=== PATIENT | male | born 1975 | race Caucasian/White ===

== ENCOUNTER 2022-09-26 08:23 | Outpatient (OUT) | payer BC, SELFPAY ==
[2022-09-26 08:41] LABS: Basophils Percent Auto 0.3 % (0.2-2.0); Eosinophils Absolute Auto 0.1 10^3/uL (0.0-0.7); Eosinophils Percent Auto 1.1 % (0.9-7.0); Hematocrit 47.9 % (42.0-54.0); Hemoglobin 16.1 g/dL (14.0-18.0); Immature Granulocytes Abs Auto 0.03 10^3/uL (0.00-0.03); Immature Granulocytes Pct Auto 0.5 % (0.0-0.5); Lymphocytes Absolute Auto 1.5 10^3/uL (1.2-3.8); Lymphocytes Percent Auto 23.6 % (20.5-60.0); Mean Corpuscular HGB Conc 33.6 g/dL (29.9-35.2); Mean Corpuscular Hemoglobin 30.3 pg (25.9-34.0); Mean Corpuscular Volume 90.2 fL (80.0-94.0); Mean Platelet Volume 10.9 fL (9.5-13.5); Monocytes Absolute Auto 0.5 10^3/uL (0.3-0.8); Monocytes Percent Auto 8.6 % (1.7-12.0); Neutrophils Absolute Auto 4.1 10^3/uL (1.4-6.5); Neutrophils Percent Auto 65.9 % (43.0-75.0); Platelet Count 199 10^3/uL (150-450); Red Blood Count 5.31 10^6/uL (4.70-6.10); Red Cell Distribution Width 12.9 % (11.0-15.0); White Blood Count 6.2 10^3/uL (4.0-11.0)
[2022-09-26 09:02] LABS: Estimated Average Glucose 117 mg/dL; Glycohemoglobin A1C 5.7 % (4.5-6.2)
[2022-09-26 09:43] LABS: Alanine Aminotransferase 26 U/L (16-63); Albumin Globulin Ratio 1.2; Albumin Level 3.9 g/dL (3.4-5.0); Alkaline Phosphatase 70 U/L (46-116); Anion Gap 10.9; Aspartate Amino Transferase 18 U/L (15-37); Bilirubin Total 0.6 mg/dL (0.2-1.0); Calcium 8.8 mg/dL (8.5-10.1); Carbon Dioxide 30.3 mmol/L (21.0-32.0); Chloride 104 mmol/L (98-107); Chol HDL Ratio 3.7; Cholesterol 190 mg/dL (<=200); Estimated GFR (African America >60 (>=60); Estimated GFR (Non-African Ame >60 (>=60); Globulin 3.3 g/dL; Glucose 109 mg/dL (74-106); HDL Cholesterol 52 mg/dL (40-60); LDL Cholesterol Calculated 111.6 mg/dL; Potassium 4.2 mmol/L (3.5-5.1); Sodium 141 mmol/L (136-145); Total Protein 7.2 g/dL (6.4-8.2); Triglycerides 132 mg/dL (<=150); VLDL CHOLESTEROL 26.4 mg/dL
[2022-09-26 09:58] LABS: Prostate Specific Antigen Scrn 1.59 ng/mL (<=4.00)
== END 2022-09-26 08:24 | disposition home or self-care (01) ==
LOC: LAB 08:26
PROVIDERS: PCP Internal Medicine; Visit Provider Internal Medicine
DX: Z00.00 Encounter for general adult medical examination without abnormal findings (principal); Z12.5 Encounter for screening for malignant neoplasm of prostate
CPT/HCPCS: 36415; 80053; 80061; 83036; 85025; G0103

== ENCOUNTER 2024-01-03 07:11 | Outpatient (OUT) | payer BC, SELFPAY ==
[2024-01-03 07:50] LABS: Basophils Percent Auto 0.5 % (0.2-2.0); Eosinophils Absolute Auto 0.1 10^3/uL (0.0-0.7); Eosinophils Percent Auto 1.9 % (0.9-7.0); Hematocrit 43.2 % (42.0-54.0); Hemoglobin 13.6 g/dL (14.0-18.0); Immature Granulocytes Abs Auto 0.02 10^3/uL (0.00-0.03); Immature Granulocytes Pct Auto 0.3 % (0.0-0.5); Lymphocytes Absolute Auto 1.7 10^3/uL (1.2-3.8); Lymphocytes Percent Auto 29.4 % (20.5-60.0); Mean Corpuscular HGB Conc 31.5 g/dL (29.9-35.2); Mean Corpuscular Hemoglobin 26.5 pg (25.9-34.0); Mean Platelet Volume 11.4 fL (9.5-13.5); Monocytes Absolute Auto 0.6 10^3/uL (0.3-0.8); Monocytes Percent Auto 10.2 % (1.7-12.0); Neutrophils Absolute Auto 3.4 10^3/uL (1.4-6.5); Neutrophils Percent Auto 57.7 % (43.0-75.0); Platelet Count 281 10^3/uL (150-450); Red Blood Count 5.14 10^6/uL (4.70-6.10); Red Cell Distribution Width 14.6 % (11.0-15.0); White Blood Count 5.9 10^3/uL (4.0-11.0)
[2024-01-03 08:00] LABS: Estimated Average Glucose 114 mg/dL; Glycohemoglobin A1C 5.6 % (4.5-6.2)
[2024-01-03 08:01] LABS: Alanine Aminotransferase 27 U/L (16-63); Albumin Globulin Ratio 1.2; Albumin Level 3.7 g/dL (3.4-5.0); Alkaline Phosphatase 79 U/L (46-116); Anion Gap 14.4; Aspartate Amino Transferase 26 U/L (15-37); BUN Creatinine Ratio 9.7; Bilirubin Total 0.5 mg/dL (0.2-1.0); Calcium 8.9 mg/dL (8.5-10.1); Carbon Dioxide 27.3 mmol/L (21.0-32.0); Chloride 105 mmol/L (98-107); Chol HDL Ratio 4.6; Cholesterol 215 mg/dL (<=200); Estimated GFR (African America >60 (>=60 mL/min/1.73m^2); Estimated GFR (Non-African Ame >60 (>=60 mL/min/1.73m^2); Globulin 3.2 g/dL; Glucose 106 mg/dL (74-106); HDL Cholesterol 47 mg/dL (40-60); Potassium 4.7 mmol/L (3.5-5.1); Sodium 142 mmol/L (136-145); Total Protein 6.9 g/dL (6.4-8.2); Triglycerides 198 mg/dL (<=150); VLDL CHOLESTEROL 39.6 mg/dL
[2024-01-03 08:51] LABS: Prostate Specific Antigen Scrn 1.59 ng/mL (<=4.00)
== END 2024-01-03 07:12 | disposition home or self-care (01) ==
LOC: LAB 07:13
PROVIDERS: PCP Internal Medicine; Visit Provider Internal Medicine
DX: Z00.00 Encounter for general adult medical examination without abnormal findings (principal)
CPT/HCPCS: 36415; 80053; 80061; 83036; 85025; G0103

== ENCOUNTER 2024-11-04 15:10 | Outpatient (OUT) | payer OTHER, SELFPAY ==
--- OUTSIDE RECORDS SUMMARY | 2024-11-04 10:40 | XMS_ITS | Continuity of Care Document ---
Author Organization [facility] Address [address] [place] [address] Phone Care Team Providers Care Marketing Co Op Name Role Phone Luther Nicolas DO Primary Care Provider Jorge David Jr, DO Attending Provider Luther Nicolas DO Attending Provider Care Teams Patient Care Team Team Status: Active Member Role Status Dates Luther Nicolas DO Primary Care Provider Active Visit Care Team Team Status: Inactive Member Role Status Dates Luther Nicolas DO Primary Care Provider Active Start: October 10, 2024 End: October 10, 2024 Jorge David Jr, DO Attending Provider Active S tart: October 10, 2024 End: October 10, 2024 Patient Care Team Team Status: Inactive Member Role Status Dates Luther Nicolas DO Primary Care Provider Active Start: November 04, 2024 End: November 04, 2024 Luther Nicolas DO Attending Provider Active Sta rt: November 04, 2024 End: November 04, 2024 Chief Complaint and Reason for Visit Chief Complaint Admit Date fpg 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 October 10, 2024 8: 00am intermittent chest pain November 04, 2024 1:53pm Reason for Visit Admit Date Chest pain November 04, 2024 1:53pm Dyspnea November 04, 2024 1:53pm Murmur November 04, 2024 1:53pm Allergies, Adverse Reactions, Alerts Allergen Type Severity Reaction Last Updated Verified Status No Known Allergies Allergy Unknown Sept2024 1:55pm Yes Active Social History Smoking Status Status Start Date End Date Date of Observa tion Never smoked tobacco (finding) January 11, 2024 10:28am Observation Status Observation Response Date of Response Legal Sex Male (finding) Sex Assigned At Male [birth year] Family History Relationship Condition Age at Onset Recorded Date/T malu father Malignant neoplasm Unknown High blood cholesterol Unknown mother Hypertension Unknown History of stroke Unknown Migraine Unknown Problems Active Problems Medical Problem Onset Date Status Comments Screening PSA (prostate spec ific antigen) Unknown Active PSA: 1.58 - 12/2022, 1.59 - 12/2023 Left hip impingement syndrome Unknown Active Dyspnea Unknown Active Wellness examination Unknown Active Murmur Unknown Active Benign prostatic hyperplasia with lower urinary tract symptoms Unknown Active GERD (gastroesophageal reflu x disease) Unknown Active Chest pain Unknown Active Asthma Unknown Active Medications Medication Status Dose Units Route Directions Qty Days St art Date Stop Date End Date Instructions Adherence Tamsulosin 0.4 mg capsule Discont inued 0 .ROUTE .COMPLEX September 18, 2023 8:39am 2024 8:11a m TAKE 1 CAPSULE BY MOUTH EVERY DAY FOR 90 DAYS Montelukast 10 mg tablet Discont inued 10 MG PO Daily b er 2023 1:00am [facility] 2023 9:45p m Montelukast 10 mg tablet Active 0 .ROUTE .COMPLEX 2023 9:45pm TAKE 1 TABLET BY MOUTH EVERYDAY AT BEDTIME Complies with drug therapy Tamsulosin 0.4 mg capsule Active 0 .ROUTE .COMPLEX September 16, 2024 8:11am TAKE 1 CAPSULE BY MOUTH EVERY DAY FOR 90 DAYS Complies with drug therapy Tamsulosin 0.4 mg capsule Discont inued 0.4 MG PO Daily September 18, 2023 12:00a m 2023 8:39a m Albuterol Sulfate 90 mcg/actuati on HFA aerosol inhaler Active INHALA TION b er 2023 1:00am Complies with drug therapy Immunizations Immunization Event Date Not Given Reason Dose Number Silicator Lot Number Vaccine Information Statement (VIS) Detail Administration Location COVID-19 mRNA-1273 (Moderna) February 11, 2020 [id number] COVID-19 mRNA-1273 (Moderna) March 11, 2020 [id number] COVID-19 mRNA-1273 (Moderna) December 03, 2020 [id number] Influenza, injectable, MDCK, pf December 12, 2023 [id number] Tetanus, Diphtheria, Pertussis (Tdap) October 10, 2024 [id number] Relevant Diagnostic Tests and/or Laboratory Data Laboratory Results Test Collection Date/Time Result Date/Time Result Interpretation Reference Range Result Comment Performing Site Glucose Level October 10, 2024 10:41am October 10, 2024 4:05pm 93 mg/dL 70-100 [facility] [id number] [address] [id number] Blood Urea Nitrogen October 10, 2024 10:41am October 10, 2024 4:05pm 14 mg/dL 7-25 [facility] [id number] [address] [id number] Creatinin e October 10, 2024 10:41am October 10, 2024 4:05pm 1.05 mg/dL 0.70-1.30 [facility] [id number] [address] [id number] Estimated GFR (CKD-EPI) October 10, 2024 10:41am October 10, 2024 4:05pm > 60.0 mL/Min [facility] [id number] [address] [id number] Sodium Level October 10, 2024 10:41am October 10, 2024 4:05pm 137 mmol/L 136-145 [facility] [id number] [address] [id number] Potassium Level October 10, 2024 10:41am October 10, 2024 4:05pm 4.6 mmol/L 3.5-5.1 [facility] [id number] [address] [id number] Chloride Level October 10, 2024 10:41am October 10, 2024 4:05pm 105 mmol/L 98-107 [facility] [id number] [address] [id number] Carbon Dioxide Level October 10, 2024 10:41am October 10, 2024 4:05pm 25.7 mmol/L 21.0-31.0 [facility] [id number] [address] [id number] Anion Gap October 10, 2024 10:41am October 10, 2024 4:05pm 10.9 mEq/L 6.0-15.0 [facility] [id number] [address] [facility] [address] Calcium Level October 10, 2024 10:41am October 10, 2024 4:05pm 9.4 mg/dL 8.6-10.3 [facility] [id number] [address] [facility] [address] Cholester ol Level October 10, 2024 10:41am October 10, 2024 4:05pm 205 mg/dL Above high normal 140-200 Chol less than 200 mg/dl low riskChol 201-239 mg/dl borderline riskChol 240 mg/dl and greater high risk [facility] [id number] [address] [facility] [address] HDL Cholester ol October 10, 2024 10:41am October 10, 2024 4:05pm 46 mg/dL 23-92 HDL CHOL ATP-III CLASSIFICATI ON Cardiovascul ar RiskHDL > or equal to 60 mg/dL LOWHDL < 40 mg/dL HIGH [facility] [id number] [address] [facility] [address] Triglycer ides Reflex October 10, 2024 10:41am October 10, 2024 4:05pm 164 mg/dL Above high normal 0-149 TRIG ATP III CLASSIFICATI ONTRIG less than 150 mg/dL NormalTRIG 150-199 mg/dL Borderline highTRIG 200-500 mg/dL High TRIG greater than 500 mg/dL Very highStandard traceable to the Center for Disease Conrtrol and Prevention (CDC) test method. [facility] [id number] [address] [facility] [address] LDL Cholester ol, Calculate d October 10, 2024 10:41am October 10, 2024 4:05pm 126 mg/dL Above high normal 0-100 LDL ATP III CLASSIFICATI ONLDL less than 100 mg/dL OptimalLDL 100-129 mg/dL Near or above optimalLDL 130-159 mg/dL Borderline highLDL 160-189 mg/dL HighLDL greater than 189 mg/dL Very high [facility] [id number] [address] [facility] [address] VLDL Cholester ol October 10, 2024 10:41am October 10, 2024 4:05pm 32 mg/dL [facility] [id number] [address] [facility] [address] Cholester ol/HDL Ratio October 10, 2024 10:41am October 10, 2024 4:05pm 4.5 <5.0 [facility] [id number] [address] [facility] [address] Pharmacy Creatinin e Clearance (Chem October 10, 2024 10:41am October 10, 2024 4:05pm N/A [facility] [id number] [address] [facility] [address] Vital Signs Vital Reading Result Reference Range Collection Date/Time Height 68 [in_i] November 04, 2024 2:00pm Weight 89.01 kg November 04, 2024 2:00pm Heart Rate 108 /min 60-100 November 04, 2024 2:00pm Respiratory rate 12 /min -October 142024 2:00pm BP Systolic 157 mm[Hg] 100-140 November 04, 2024 2:00pm BP Diastolic 95 mm[Hg] 60-100 November 04, 2024 2:00pm BMI (Body Mass Index) 29.8 kg/m2 2024 2:00pm Advance Directives Advance Directive Response Recorded Date/ Time Advance Directives No December 11:21am Insurance Providers Guarantor Henrik Simmons Address [address] [facility] [address] Contact Info. Home Phone: Payer Policy Id Subscriber's Name Subscriber Id Effectiv e Date Expiration Date O [id number] Henrik Simmons [id number] Vini RENEE/BS [id number] Henrik Simmons [id number] Encounters Encounter Location(s) Arrival/Admit Date Discharge/Depart Date Provider(s) Departed Referred -[facility] October 10, 2024 8:00am October 10, 2024 8:01am Jorge David DO Departed Physician/Prov ider Office Visit -[facility] November 04, 2024 1:53pm November 04, 2024 2:39pm Luther Nicolas DO Recent Diagnosis Onset Date Admit Date Chest pain Unknown November 04, 2024 1:53pm Dyspnea Unknown November 04, 2024 1:53pm Murmur Unknown November 04, 2024 1:53pm Assessments Diagnosis Onset Date Resolution Status Admit Date Chest pain acute October 1:53pm Dyspnea acute October 1:53pm Murmur acute October 1:53pm Plan of Treatment Future Tests Future scheduled test information is unavailable Pending Tests Test Name Ordered Date Scheduled Date Comprehensive Metabolic Panel November 04 2:36pm XR chest 2V* November 04, 2024 2:30pm D-Dimer High Sensitivity November 04, 2024 2: 36pm [facility] echo transthoracic November 04, 2024 2:31 pm Future Visits Future appointment information is unavailable Referrals to Other Providers Referral information is unavailable Future Procedures Procedure Name Ordered Date Scheduled Date Complete Blood Count Auto Diff November 04 025 2:36pm Troponin I High Sensitivity November 04, 2024 2:36pm PSA Screen (Yearly Only) November 04, 2024 2: 36pm Thyroid Stimulating Hormone November 04, 2024 2:36pm Future Medications Future medication information is unavailable Patient Instructions Patient instructions are unavailable
--- OUTSIDE RECORDS SUMMARY | 2024-11-04 15:12 | XMS_ITS | Encounter Summary ---
Author Organization [facility] Address [facility] [place] [address] Care Team Providers Care Coke Crusher Operator Name Role Phone Unavailable Primary Care Provider Unavailabl e Source Comments In the event this information is protected by the Federal Confidentiality of Alcohol and Drug AbusePatient Records regulations: The Federal rules restrict any use of the information to criminally investigate or prosecute any alcohol or drug abuse patient.[facility] Encounter Details Date Type Department Care Team (Late st Contact Info) Description 08/19/2024 [place] [address] Provider, [facility]cf Sign up to manage your digestive symptoms in between visits, covered by insurance Social History Tobacco Use Types Packs/Day Years Used Date Smoking Tobacco: Never Smokeless Tobacco: Never Area Deprivation Index Answer Date Donta rded National Score (1-100), lower number is lower ri sk 75 07/10/2023 State Score (1-10), lower number is lower risk 6 07/10/2023 Data from: https://www.neighborhoodatlas.medicine.[facility].edu/. Last address used for calculation [address] 07/10/[birth year]23 Sex and Gender Information Value Date Recorded Sex Assigned at Not on file Legal Sex Male 4:00 PM EDT Gender Identity Not on file Sexual Orientation Not on file documented as of this encounter Plan of Treatment Not on file documented as of this encounter Visit Diagnoses Not on filedocumented in this encounter
--- OUTSIDE RECORDS SUMMARY | 2024-11-04 15:12 | XMS_ITS | Encounter Summary ---
Author Organization [facility] Address [id number] [address] [place] [address] Care Team Providers Care Sales Activity Manager Name Role Phone Luther Nicolas DO Primary Care Provider [phone] Reason for Visit * Reason Comments Med Change Request Encounter Details Date Type Department Care Team (Late st Contact Info) Description 06/12/2024 Refill [facility] [address] [place] [id number] Toñito Shi MD [address] [place] [phone] Social History Tobacco Use Types Packs/Day Years Used Date Smoking Tobacco: Never Passive Smoke Exposure: Never Smokeless Tobacco: Never Alcohol Use Standard Drinks/Week Comments Yes 1 (1 standard drink = 0.6 oz pur e alcohol) Childcare Answer Date Recorded Childcare Unknown 07/22/2018 Employment Answer Date Recorded Employment Unknown 07/22/2018 Hunger Screening Answer Date Recorded Within the past 12 months we worried whether our food would run out before we got money to buy more. Never True 06/03/2024 Within the past 12 months th e food we bought just didn't last and we didn't have money to get more. Never True 06/03/2024 Sex and Gender Information Value Date Recorded Sex Assigned at Not on file Legal Sex Male 3:03 PM EDT Gender Identity Not on file Sexual Orientation Not on file documented as of this encounter Miscellaneous Notes * Telephone Encounter - Toñito Shi MD - 06/12/2024 10:33 AM EDT Refill not needed documented in this encounter Plan of Treatment Not on file documented as of this encounter Visit Diagnoses Not on filedocumented in this encounter Care Teams Sales Activity Manager Relationship Specialty Start Date End Date Luther Nicolas DO [address] [place] [address] PCP - General Internal Medicine 10/16/23 documented as of this encounter
--- OUTSIDE RECORDS SUMMARY | 2024-11-04 15:12 | XMS_ITS | Clinical Summary ---
Author Organization [facility] Address [id number] [address] [place] [address] Care Team Providers Care Fourth Hand Name Role Phone FidencioLuther Primary Care Provider [phone] Allergies No known active allergies Medications tamsulosin (FLOMAX) 0.4 mg capsuleIndicati ons:benign prostatic hyperplasia with lower urinary tract sx Take 1 capsule (0.4 mg total) by mouth nightly Indications: enlarged prostate with urination problem. Active montelukast (SINGULAIR) 10 mg tabletIndicatio ns:seasonal allergic rhinitis Take 1 tablet (10 mg total) by mouth nightly Indications: seasonal runny nose. Active cetirizine (ZyrTEC) 10 mg tabletIndicatio ns:allergic rhinitis Take by mouth once daily at bedtime Indications: inflammation of the nose due to an allergy. Active indomethacin SR (INDOCIN SR) 75 mg CR capsule Take 1 capsule (75 mg total) by mouth in the morning. With food. 4 capsule 5 Active pantoprazole (PROTONIX) 40 mg EC tablet Take 1 tablet (40 mg total) by mouth in the morning. 10 tablet 5 Active ondansetron (ZOFRAN) 4 mg tablet Take 1 tablet (4 mg total) by mouth every 8 (eight) hours as needed for nausea or vomiting. 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 03/26/2024 Femoral acetabular impingement 12/18/2023 Encounters Date Type Department Care Team Description 08/25/2024 12:55 PM EDT Office Visit [facility] [address] [place] [address] Toñito Shi MD Femoroacetabular impingement of left hip (Primary Dx) 08/24/2024 Travel from Last 3 Months Family History Medical History Relation Name Comments Prostate cancer Father Jarocho Anesthesia problems Neg Hx Relation Name Status Comments Father Jarocho Social History Tobacco Use Types Packs/Day Years Used Date Smoking Tobacco: Never Passive Smoke Exposure: Never Smokeless Tobacco: Never Tobacco Cessation:Counseling Given: Not Answered Alcohol Use Standard Drinks/Week Comments Yes 1 (1 standard drink = 0.6 oz pur e alcohol) Childcare Answer Date Recorded Childcare Unknown 07/22/2018 Employment Answer Date Recorded Employment Unknown 07/22/2018 Hunger Screening Answer Date Recorded Within the past 12 months we worried whether our food would run out before we got money to buy more. Never True 08/25/2024 Within the past 12 months th e food we bought just didn't last and we didn't have money to get more. Never True 08/25/2024 Sex and Gender Information Value Date Recorded Sex Assigned at Not on file Legal Sex Male 3:03 PM EDT Gender Identity Not on file Sexual Orientation Not on file Last Filed Vital Signs Vital Sign Reading Time Taken Comments Blood Pressure 132/85 05/21/2024 3:35 PM EDT Pulse 85 05/21/2024 3:35 PM EDT Temperature 36.1 C (97 F) 05/21/2024 1:50 PM EDT Respiratory Rate 18 05/21/2024 3:35 PM EDT Oxygen Saturation 97% 05/21/2024 3:35 PM EDT Inhaled Oxygen Concentration - - Weight 87.1 kg (192 lb) 08/25/2024 12:52 PM EDT Height 172.7 cm (5' 8 ) 08/25/2024 12:52 PM EDT Body Mass Index 29.19 08/25/2024 12:52 PM EDT Plan of Treatment Health Maintenance Due Date Last Done Comments Depression Screening 1988 Adult BMI Follow Up Plan 1994 DTaP,Tdap and Td Vaccines (1 - Tdap) 12/09/1995 COVID-19 Vaccine (4 - 2025-2 6 season) 2024 12/03/2020, 03/11/2020, 02/11/2020 Influenza Vaccine 10/13/2024 12/12/2023 Tobacco Screening 07/01/2025 07/01/2024 Adult BMI Screening 08/25/2025 08/25/2024 Medical Devices Not on file Insurance AN[employer]ELY[employer] Care Teams Fourth Hand Relationship Specialty Start Date End Date Luther Nicolas DO [facility] [place] [address] PCP - General Internal Medicine 10/16/23
--- OUTSIDE RECORDS SUMMARY | 2024-11-04 15:12 | XMS_ITS | Clinical Summary ---
Author Organization [facility] Address [address] [place] [address] Care Team Providers Care Processor Helper Name Role Phone Unavailable Primary Care Provider Unavailabl e Allergies No known active allergies Medications montelukast (SINGULAIR) 10 mg tablet Take by mouth every 24 hours. 10/08/2021 Active tamsulosin (FLOMAX) 0.4 mg 09/22/2022 Act joshua cetirizine (ZYRTEC) 10 mg tablet Active Active Problems No known active problems Encounters Date Type Department Care Team Description 08/19/2024 [place] [address] Provider, [facility]cf Sign up to manage your digestive symptoms in between visits, covered by insurance from Last 3 Months Social History Tobacco Use Types Packs/Day Years Used Date Smoking Tobacco: Never Smokeless Tobacco: Never Tobacco Cessation:Counseling Given: Not Answered Area Deprivation Index Answer Date Donta rded National Score (1-100), lower number is lower ri sk 75 07/10/2023 State Score (1-10), lower number is lower risk 6 07/10/2023 Data from: https://www.neighborhoodatlas.medicine.[facility].edu/. Last address used for calculation [address] 07/10/2023 Sex and Gender Information Value Date Recorded Sex Assigned at Not on file Legal Sex Male 4:00 PM EDT Gender Identity Not on file Sexual Orientation Not on file Last Filed Vital Signs Vital Sign Reading Time Taken Comments Blood Pressure 140/85 09/10/2023 10:31 AM EDT Pulse 75 09/10/2023 10:31 AM EDT Temperature 36.8 C (98.3 F) 09/10/2023 10:31 AM EDT Respiratory Rate - - Oxygen Saturation - - Inhaled Oxygen Concentration - - Weight 85.3 kg (188 lb) 09/10/2023 10:31 AM EDT Height 172.7 cm (5' 8 ) 09/10/2023 10:31 AM EDT Body Mass Index 28.59 09/10/2023 10:31 AM EDT Plan of Treatment Health Maintenance Due Date Last Done Comments Anxiety Screening 1994 Depression Screening 1994 HIV Screening 1994 Hepatitis C Screening 1994 DTaP,Tdap,Td Vaccine (1 - Tdap) 12/09/1995 Hepatitis B Vaccine (1 of 3 - 19+ 3-dose series) 12/08 Lipid Screening 12/09/2011 CT Colonography 2021 Cologuard (FIT-DNA) 2021 Colonoscopy 2021 Colorectal Cancer Screening 2021 Diabetes Screening 2021 Fecal Occult Blood 2021 Sigmoidoscopy 2021 Influenza Vaccine (#1) 2024 Insurance
--- OUTSIDE RECORDS SUMMARY | 2024-11-04 15:12 | XMS_ITS | Clinical Summary ---
Author Organization [facility] Address [address] [place] [address] Care Team Providers Care Bag Liner Name Role Phone Luther Nicolas DO Primary Care Provider [phone] Allergies No known active allergies Medications tamsulosin (Flomax) 0.4 MG 24 hr capsule Active Singulair 10 MG tablet Active cetirizine (ZyrTEC ALLERGY) 10 MG tablet Active Active Problems Problem Noted Date Diagnosed Date Articular cartilage disorder of left hip 025 Left hip pain 09/27/2023 Femoral acetabular impingement 09/27/2023 Encounter for screening for malignant neoplasm o f colon 11/22/2022 Encounters Date Type Department Care Team Description 09/04/2024 5:00 PM EDT Treatment [facility] [address] [place] [address] Alejandra Lee PTA Left hip pain (Primary Dx); Femoroacetabular impingement of left hip; Articular cartilage disorder of left hip 09/04/2024 Travel 09/02/2024 5:00 PM EDT Treatment [facility] [address] [place] [address] Lucy Fay PTA Left hip pain (Primary Dx); Femoroacetabular impingement of left hip; Articular cartilage disorder of left hip 09/02/2024 Travel 08/29/2024 1:30 PM EDT Treatment [facility] [address] [place] [address] Lee, Alejandra, [employer] Left hip pain (Primary Dx); Femoroacetabular impingement of left hip; Articular cartilage disorder of left hip 08/29/2024 Travel from Last 3 Months Immunizations Immunization Administration Dates Next Due Influenza, seasonal, injectable, preservative fr ee 12/12/2023 Family History Medical History Relation Name Comments Prostate cancer Father Breast cancer Neg Hx Colon cancer Neg Hx Ovarian cancer Neg Hx Relation Name Status Comments Father Alive Mother Alive Social History Tobacco Use Types Packs/Day Years Used Date Smoking Tobacco: Never Smokeless Tobacco: Never Alcohol Use Standard Drinks/Week Comments Yes 1 (1 standard drink = 0.6 oz pur e alcohol) Sex and Gender Information Value Date Recorded Sex Assigned at Male 11/21/2022 10:54 PM EDT Legal Sex Male 2:44 PM EDT Gender Identity Male 11/21/2022 10:54 PM EDT Sexual Orientation Straight 11/21/2022 10 :54 PM EDT Last Filed Vital Signs Vital Sign Reading Time Taken Comments Blood Pressure 138/86 11/22/2022 3:27 PM EDT Pulse - - Temperature - - Respiratory Rate - - Oxygen Saturation - - Inhaled Oxygen Concentration - - Weight 81.6 kg (180 lb) 11/22/2022 3:27 PM EDT Height 172.7 cm (5' 8 ) 11/22/2022 3:27 PM EDT Body Mass Index 27.37 11/22/2022 3:27 PM EDT Plan of Treatment Health Maintenance Due Date Last Done Comments CT Colonography 1976 FIT-DNA 1976 FIT 1975 FOBT 1975 Sigmoidoscopy 1975 Influenza Vaccine (#1) 2024 12/12/2023 Colonoscopy 12/18/2032 12/18/2022, 12/18/2022, 11/12 Colorectal Cancer Screening 12/18/[address] [place] [address] Care Teams Bag Liner Relationship Specialty Start Date End Date Luther Nicolas DO PCP - General 11/21/22
--- NOTE | 2024-11-04 15:13 | XR_ITS ---
[address] [address] Patient Name: SAMSON MENJIVAR MRN: [id number] date: 1975 Sex: M Assigned Patient Location: LAB Current Patient Location: LAB Accession/Order Number: [id number] Exam Date: 11/04/2024 15:20 Report Date: 11/04/2024 18:16 At the request of: MILANA MORRIS DO Procedure: XR chest 2V PA AND LATERAL CHEST: CLINICAL HISTORY: Chest Pain, Dyspnea COMPARISON: 08/15/2020 FINDINGS: Unremarkable cardiomediastinal silhouette. Lungs clear. No effusion or pneumothorax XR/XR chest 2V IMPRESSION: NO ACUTE CARDIOPULMONARY ABNORMALITY. Impression dictated by: Robby Saba M.D. 11/04/2024 6:16 PM Dictation Location: [place] [address] Electronically authenticated by: [id number] Y Date: 11/04/2024 18:16
[2024-11-04 15:16] LABS: Hematocrit 35.9 % (42.0-54.0); Hemoglobin 10.9 g/dL (14.0-18.0); Immature Granulocytes Abs Auto 0.02 10^3/uL (0.00-0.03); Immature Granulocytes Pct Auto 0.4 % (0.0-0.5); Lymphocytes Absolute Auto 1.7 10^3/uL (1.2-3.8); Mean Corpuscular HGB Conc 30.4 g/dL (29.9-35.2); Mean Corpuscular Hemoglobin 22.2 pg (25.9-34.0); Mean Corpuscular Volume 73.3 fL (80.0-94.0); Platelet Count 348 10^3/uL (150-450); Red Blood Count 4.90 10^6/uL (4.70-6.10); White Blood Count 5.7 10^3/uL (4.0-11.0)
--- OUTSIDE RECORDS SUMMARY | 2024-11-04 15:17 | XMS_ITS | CCD ---
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 Name Role Phone ARTURO, DR CORTÉS Admitting Unavailable BALL, DR CORTÉS Attending Unavailable BALL, DR CORTÉS Primary Care Unavailable BALL, DR CORTÉS Consulting Unavailable BALL, DR CORTÉS Primary Care Unavailable BALL, DR CORTÉS Admitting Unavailable BALL, DR CORTÉS Attending Unavailable WEST, DR BRAD Galvan Consulting Unavailable BALL, DR CORTÉS Consulting Unavailable BALL, DR CORTÉS Primary Care Unavailable BALL, DR CORTÉS Admitting Unavailable BALL, DR CORTÉS Attending Unavailable WEST, DR BRAD Galvan Consulting Unavailable BALL, DR CORTÉS Primary Care Unavailable BALL, DR CORTÉS Admitting Unavailable BALL, DR CORTÉS Attending Unavailable BALL, DR CORTÉS Consulting Unavailable BALL, DR CORTÉS Primary Care Unavailable ALEXANDRO, MAYRA Admitting Unavailable ALEXANDRO, MAYRA Attending Unavailable ALEXANDRO, MAYRA Consulting Unavailable Arturo Luther Unavailable Unavailable Primary Care Provider UnavailLUTHER White Attending Unavailable BRAD HANNA Attending Unavailable Luther Nicolas MD Primary Care Provider PIERCE, JEANA K Referring Unavailable LUTHER NICOLAS Primary Care Unavailable PIERCE, JEANA K Referring Unavailable LUTHER NICOLAS Primary Care Unavailable PIERCE, JEANA K Referring Unavailable LUTHER NICOLAS Primary Care Unavailable Luther Nicolas DO Primary Care Provider LUTHER NICOLAS Referring Unavailable LUTHER NICOLAS Primary Care Unavailable PIERCE, JEANA K Admitting Unavailable PIERCE, JEANA K Attending Unavailable PIERCE, JEANA K Referring Unavailable LUTHER NICOLAS Primary Care Unavailable Luther Nicolas MD Primary Care Provider Luther Nicolas DO Primary Care Provider PIERCE, JEANA K Attending Unavailable LUTHER NICOLAS Referring Unavailable LUTHER NICOLAS Primary Care Unavailable PIERCE, JEANA K Referring Unavailable LUTHER NICOLAS Primary Care Unavailable PIERCE, JEANA K Attending Unavailable LUTHER NICOLAS Referring Unavailable BALL, LUTHER E Primary Care Unavailable PIERCE, JEANA K Attending Unavailable ARTURO, LUTHER E Referring Unavailable BALL, LUTHER E Primary Care Unavailable PIERCE, JEANA K Referring Unavailable BALL, LUTHER E Primary Care Unavailable PIERCE, JEANA K Attending Unavailable BALL, LUTHER E Referring Unavailable BALL, LUTHER E Primary Care Unavailable PIERCE, JEANA K Attending Unavailable BALL, LUTHER E Referring Unavailable BALL, LUTHER E Primary Care Unavailable Luther Nicolas DO Primary Care Provider Jorge David DO Attending Provider [phone] Jorge David Jr Attending Unavailable Jorge David Jr Admitting Unavailable Luther Nicolas Primary Care Unavailable Medications Current Medications Medication Drug Class(es) Dates Sig (Normalized) Sig (Original) acetaminophen 500 mg oral tablet (2 sources) acetaminophen (TYLENOL EXTRA STRENGTH) 500 mg tablet Take 1 tablet (500 mg total) by mouth as needed for pain. Active acetaminophen 325 mg / HYDROcodone bitartrate 5 mg oral tablet (1 source) Opioid Agonist Start: 05-21-2024 End: 05-26-2024 HYDROcodone-acetamin ophen (NORCO) 5-325 mg per tablet Indications: Post-operative pain Take 1-2 tablets by mouth every 6 (six) hours as needed for pain for up to 5 days. Max Daily Amount: 8 tablets 40 tablet 05/21/2024 05/26/2024 Active [id number] 200 actuat albuterol 0.09 mg/actuat metered dose inhaler (5 sources) beta2-Adrenergic Agonist Start: 01-02-2024 take 2 puff(s) by in halation every four hours as needed for cough Albuterol Sulfate HFA 108 (90 Base) MCG/ACT 2 puffs Inhalation every 4 hrs as needed for cough or SOB for 30 days PRN Active take 1 puff(s) by in halation every four hours as needed Albuterol Sulfate HFA 108 (90 Base) MCG/ACT 1 puff as needed Inhalation every 4 hrs PRN Active aspirin 81 mg delayed release oral tablet (3 sources) Platelet Aggregation Inhibitor, Nonsteroidal Anti-inflammatory Drug Start: 05-21-2024 End: 06-20-2024 take 1 tablet by mouth in the morning aspirin 81 mg Take 1 tablet (81 mg total) by mouth in the morning and 1 tablet (81 mg total) before bedtime. Do all this for 30 days. To start after aspirin 325 mg complete. 60 tablet 05/21/2024 06/20/2024 Active Start: 05-21-2024 End: 05-25-2024 take 1 tablet by mouth in the morning, then take 1 tablet by mouth at bedtime aspirin 325 mg EC tablet Take 1 tablet (325 mg total) by mouth in the morning and 1 tablet (325 mg total) before bedtime. Do all this for 4 days. Take this while taking indomethacin. 8 tablet 05/21/2024 05/25/2024 Active cetirizine hydrochloride 10 mg oral tablet (20 sources) Histamine-1 Receptor Antagonist cetirizine (ZyrTEC ALLERGY) 10 MG tablet Active indomethacin 75 mg extended release oral capsule (4 sources) Nonsteroidal Anti-inflammatory Drug Start: 05-22-19 25 take 1 capsule by mouth at mealtime indomethacin SR (INDOCIN SR) 75 mg CR capsule Take 1 capsule (75 mg total) by mouth in the morning. With food. 4 capsule 05/21/2024 Active montelukast 10 mg oral tablet (20 sources) Leukotriene Receptor Antagonist Start: 12-17-19 24 take 1 tablet by mouth once daily at bedtime Start: 12-17-2023 End: 12-17-2023 take 1 tablet by mouth once daily Montelukast 10 mg tablet Discontinued 10 MG PO Daily December 17, 2023 1:00am December 17, 2023 9:45pm Start: 10-08-2021 montelukast (S INGULAIR) 10 mg tablet Take by mouth every 24 hours. 0 10/08/2021 Active naproxen 500 mg oral tablet (2 sources) Nonsteroidal Anti-inflammatory Drug Start: 05-21-2024 End: 06-20-2024 take 1 tablet by mouth in the morning, then take 1 tablet by mouth at mealtime naproxen (NAPROSYN) 500 mg tablet Take 1 tablet (500 mg total) by mouth in the morning and 1 tablet (500 mg total) in the evening. Take with meals. Do all this for 30 days. Begin taking after completing indomethacin. 60 tablet 05/21/2024 06/20/2024 Active ondansetron 4 mg oral tablet (4 sources) Serotonin-3 Receptor Antagonist Start: 05-21-2024 take 1 tablet by mouth every eight hours as needed for nausea and vomiting ondansetron (ZOFRAN) 4 mg tablet Take 1 tablet (4 mg total) by mouth every 8 (eight) hours as needed for nausea or vomiting. 20 tablet 05/21/2024 Active pantoprazole 40 mg delayed release oral tablet (4 sources) Proton Pump Inhibitor Start: 05-21-2024 take 1 tablet by mouth in the morning pantoprazole (PROTONIX) 40 mg EC tablet Take 1 tablet (40 mg total) by mouth in the morning. 10 tablet 05/21/2024 Active tamsulosin hydrochloride 0.4 mg oral capsule (20 sources) alpha-Adrenergic Carmella Start: 09-18-2023 End: 09-16-2024 take 1 capsule by mouth once daily Start: 09-22-2022 End: 09-18-2023 take 1 capsule by mouth once daily Tamsulosin 0.4 mg capsule Discontinued 0.4 MG PO Daily September 18, 2023 12:00am September 18, 2023 8:39am tamsulosin (Flom ax) 0.4 MG 24 hr capsule Active Problems Active Problems Problem Classification Problem Date Documented Date Episodic/Chronic Abdominal pain (8 sources) Left lower quadrant pain; Translations: [Left inguinal pain] Onset: 06-17-2021 Episodic Asthma (5 sources) Mild intermittent asthma; Translations: [Mild intermittent asthma, uncomplicated] 01-08-2024 Chronic Esophageal disorders (5 sources) Gastroesophageal reflux disease without esophagitis; Translations: [Gastro-esophageal reflux disease without esophagitis] 01-08-2024 Chronic Genitourinary symptoms and ill-defined conditions (6 sources) Delay when starting to pass urine; Translations: [Hesitancy of micturition] Episodic Hyperplasia of prostate (7 sources) Lower urinary tract symptoms due to benign prostatic hypertrophy; Translations: [Benign prostatic hyperplasia with lower urinary tract symptoms] Chronic Joint disorders and dislocations; trauma-related (20 sources) Other articular cartilage disorders, left hip; Translations: [Acetabular labrum tear] Onset: 03-07-2024 03-26-2024 Chronic Other aftercare (1 source) Postoperative visit; Translations: [Encounter for other specified surgical aftercare] 07-01-2024 Episodic Other aftercare (1 source) Encounter for other specified surgical aftercare; Translations: [Encounter for other specified surgical aftercare] Onset: 07-01-2024 Episodic Other injuries and conditions due to external causes (6 sources) Other specified injuries of abdomen, subsequent encounter; Translations: [OTH SPEC INJURIES ABD SUBSEQUENT] Onset: 12-16-2021 Episodic Other nervous system disorders (1 source) Other acute postprocedural pain; Translations: [Other acute postprocedural pain] Onset: 05-21-2024 Episodic Other non-traumatic joint disorders (20 sources) Hip pain; Translations: [Pain in left hip] Onset: 09-27-2023 09-10-2023 Episodic Other non-traumatic joint disorders (20 sources) Pain in right hip joint; Translations: [Pain in right hip] Onset: 09-27-2023 10-26-2023 Episodic Other non-traumatic joint disorders (20 sources) 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; Translations: [Other specified joint disorders, left hip] Onset: 03-26-2024 12-18-2023 Episodic Other non-traumatic joint disorders (1 source) Enthesopathy of hip region; Translations: [Other specified joint disorders, left hip] 01-11-2024 Episodic Other screening for suspected conditions (not mental disorders or infectious disease) (20 sources) Encounter for screening for malignant neoplasm of prostate; Translations: [Encounter for screening for malignant neoplasm of colon] Onset: 06-09-2021 Episodic Comment on above: PSA: 1.58 - 12/2022, 1.59 - 12/2023 Other upper respiratory disease (4 sources) Allergic rhinitis due to pollen; Translations: [Allergic rhinitis due to pollen] Chronic Unclassified (3 sources) CONTACT W/AND (SUSP) EXPOS COVID-19; Translations: [CONTACT W/AND (SUSP) EXPOS COVID-19] Onset: 02-19-2021 Unclassified (1 source) Femoroacetabular impingement of left hip [M25.852] Onset: 05-21-2024 Unclassified (1 source) Post-op Onset: 06-03-2024 Unclassified (1 source) New Patient Onset: 12-18-2023 Past or Other Problems Problem Classification Problem Date Documented Da te Episodic/Chronic Other non-traumatic joint disorders (20 sources) Femoral acetabular impingement; Translations: [Other specified joint disorders, unspecified hip] Onset: 09-27-2023 10-26-2023 Episodic Other non-traumatic joint disorders (3 sources) Other specified joint disorders, left hip; Translations: [Other specified joint disorders, left hip] Onset: 03-07-2024 Episodic Other non-traumatic joint disorders (2 sources) Other specified joint disorders, unspecified hip; Translations: [Other specified joint disorders, unspecified hip] Onset: 12-18-2023 Episodic Other non-traumatic joint disorders (2 sources) Pain in left hip; Translations: [Pain in left hip] Onset: 12-18-2023 Episodic Residual codes; unclassified (1 source) Pain Onset: 05-05-2024 Episodic Unclassified (1 source) CONTACT W/AND (SUSP) EXPOS COVID-19; Translations: [CONTACT W/AND (SUSP) EXPOS COVID-19] Onset: 02-15-2021 Results Test Name Value Interpretation Reference Range Facility Basic Metabolic Raygoza w/Rfx A1 Con 10-10-2024 GFR/1.73 sq M.predicted MDRD (S/P/Bld) [Vol rate/Area] mL/min/{1.73_m2} Normal [facility] Comment on above: Performed By: #### E BS LIPID, EMP BMP #### [facility] [address] [place] [address] [place] Calcium [Mass/volume] in Ser um or PlasmaOrdered By: Jorge David on 10-10-2024 Calcium [Mass/Vol] 9.4 mg/dL Normal 8.6-10.3 [facility] Comment on above: Performed By: #### E BS LIPID, EMP BMP #### [facility] [address] [place] [id number] [place] Carbon dioxide, total [Moles /volume] in Serum or PlasmaOrdered By: Jorge David on 10-10-2024 CO2 [Moles/Vol] 25.7 mmol/L Normal 21.0-31.0 [facility] Comment on above: Performed By: #### E BS LIPID, EMP BMP #### [facility] [address] [place] [id number] [place] Chloride [Moles/volume] in S caity or PlasmaOrdered By: Jorge David on 10-10-2024 Chloride [Moles/Vol] 105 mmol/L Normal 98-107 [facility] Comment on above: Performed By: #### E BS LIPID, EMP BMP #### [facility] [address] [place] [address] [place] Cholesterol [Mass/volume] in Serum or PlasmaOrdered By: Jorge David on 10-10-2024 Cholesterol [Mass/Vol] 205 mg/dL High 140-200 [facility] Comment on above: Chol less than 200 m g/dl low riskChol 201-239 mg/dl borderline riskChol 240 mg/dl and greater high risk Result Comment: Chol less than 200 mg/dl low risk Chol 201-239 mg/dl borderline risk Chol 240 mg/dl and greater high risk Performed By: #### E BS LIPID, EMP BMP #### [facility] [address] [place] [address] [place] Cholesterol in HDL [Mass/vol ume] in Serum or PlasmaOrdered By: Jorge David on 10-10-2024 Cholesterol in HDL [Mass/Vol] 46 mg/dL Normal 23-92 [facility] Comment on above: HDL CHOL ATP-III CLA SSIFICATION Cardiovascular RiskHDL > or equal to 60 mg/dL LOWHDL < 40 mg/dL HIGH Result Comment: HDL CHOL ATP-III CLASSIFICATION Cardiovascular Risk HDL > or equal to 60 mg/dL LOW HDL < 40 mg/dL HIGH Performed By: #### E BS LIPID, EMP BMP #### [facility] [address] [place] [id number] [place] Cholesterol in LDL Calc [Mas s/Vol]Ordered By: Jorge David on 10-10-2024 Cholesterol in LDL [Mass/Vol] 126 mg/dL High 0-100 [facility] Comment on above: LDL ATP III CLASSIFI CATIONLDL less than 100 mg/dL OptimalLDL 100-129 mg/dL Near or above optimalLDL 130-159 mg/dL Borderline highLDL 160-189 mg/dL HighLDL greater than 189 mg/dL Very high Cholesterol in VLDL Calc [Ma ss/Vol]Ordered By: Jorge David on 10-10-2024 Cholesterol in VLDL [Mass/Vol] 32 mg/dL [facility] Creatinine [Mass/volume] in Serum or PlasmaOrdered By: Jorge David on 10-10-2024 Creatinine [Mass/Vol] 1.05 mg/dL Normal 0.70-1.[address] [facility] Comment on above: Performed By: #### E BS LIPID, EMP BMP #### [facility] [address] Glomerular filtration rate [ Volume Rate/Area] in Serum, Plasma or Blood by CreatinineOrdered By: Jorge David on 10-10-2024 Glomerular filtration rate [Volume Rate/Area] in Serum, Plasma or Blood by Creatinine > 60.0 mL/Min [facility] Glucose [Mass/volume] in Ser um or PlasmaOrdered By: Jorge David on 10-10-2024 Glucose [Mass/Vol] 93 mg/dL Normal 70-100 [facility] Comment on above: Performed By: #### E BS LIPID, EMP BMP #### [address] Lipid Profileon 10-10-2024 LDL Cholesterol,Calculated 126 mg/dL High 0-100 [facility] Comment on above: Result Comment: LDL ATP III CLASSIFICATION LDL less than 100 mg/dL Optimal LDL 100-129 mg/dL Near or above optimal LDL 130-159 mg/dL Borderline high LDL 160-189 mg/dL High LDL greater than 189 mg/dL Very high Performed By: #### E BS LIPID, EMP BMP #### [address] Triglyceride w/Reflex 164 mg/dL High 0-149 [facility] Comment on above: Result Comment: TRIG ATP III CLASSIFICATION TRIG less than 150 mg/dL Normal TRIG 150-199 mg/dL Borderline high TRIG 200-500 mg/dL High TRIG greater than 500 mg/dL Very high Standard traceable to the Center for Disease Conrtrol and Prevention (CDC) test method. Performed By: #### E BS LIPID, EMP BMP #### [facility] [address] VLDL CHOLESTEROL 32 mg/dL Normal [facility] Comment on above: Performed By: #### E BS LIPID, EMP BMP #### [facility] [address] No Panel InformationOrdered By: Jorge David on 10-10-2024 Pharmacy Creatinine Clearance (Chem N/A [facility] Potassium [Moles/volume] in Serum or PlasmaOrdered By: Jorge David on 10-10-2024 Potassium [Moles/Vol] 4.6 mmol/L Normal 3.5-5.[address] [facility] Comment on above: Performed By: #### E BS LIPID, EMP BMP #### [facility] [address] Serum or plasma anion gap de terminationOrdered By: Jorge David on 10-10-2024 Anion gap [Moles/Vol] 10.9 mmol/L Normal 6.0-15.0 [facility] Comment on above: Performed By: #### E BS LIPID, EMP BMP #### [facility] [address] Serum or plasma total choles terol/high density lipoprotein (HDL) cholesterol mass ratOrdered By: Jorge David on 10-10-2024 Cholesterol.total/Angelique sterol in HDL [Mass ratio] 4.5 {ratio} Normal <5.0 [facility] Comment on above: Result Comment: PERF ORMED BY: [place] [address] PATHOLOGIST AIR GRINDER WENDI KAYE M.D. Performed By: #### E BS LIPID, EMP BMP #### [facility] [address] [place] [address] Sodium [Moles/volume] in Ser um or PlasmaOrdered By: Jorge David on 10-10-2024 Sodium [Moles/Vol] 137 mmol/L Normal 136-145 [facility] Comment on above: Performed By: #### E BS LIPID, EMP BMP #### [facility] [address] Triglyceride [Mass/volume] i n Serum or PlasmaOrdered By: Jorge David on 10-10-2024 Triglyceride [Mass/Vol] 164 mg/dL High 0-149 [facility] Comment on above: TRIG ATP III CLASSIF ICATIONTRIG less than 150 mg/dL NormalTRIG 150-199 mg/dL Borderline highTRIG 200-500 mg/dL High TRIG greater than 500 mg/dL Very highStandard traceable to the Center for Disease Conrtrol and Prevention (CDC) test method. Urea nitrogen [Mass/volume] in Serum or PlasmaOrdered By: Jorge David on 10-10-2024 Urea nitrogen [Mass/Vol] 14 mg/dL Normal 7-25 [facility] Comment on above: Performed By: #### E BS LIPID, EMP BMP #### [facility] [address] XR Pelvis and Hip - left 2 V iewson 06-03-2024 AP and lateral x-ray s left hip reviewed stable appearing joint space no acute osseous abnormalities this is my independent interpretation. MANUALLY TRANSCRIBED RESULTS [facility] Radiology Study observation (narrative) [facility] CT HIP LT WO CONTon 03-10-19 CT HIP LT WO CONT CT HIP LT WO CONT Clinical information: Hip pain. Signs of impingement. Comparison: None. Procedure: Routine CT pelvis obtained without contrast utilizing 1.25 mm axial sections. Sagittal and coronal reformatted images with 3-D Maximum intensity projection reconstructions constructed under concurrent physician supervision on a independent workstation for evaluation of hip anatomy. All CT scans at this facility use dose modulation, iterative reconstruction, and/or weight based dosing when appropriate to reduce radiation dose to as low as reasonably achievable. Findings: No focal or acute osseous abnormality. Subarticular cystic changes at the anterior acetabulum. Cortical prominence of the femoral neck at the junction of the femoral head compatible with a cam lesion. Acetabular Version: Cranial: 11 degrees of anteversion Central: 15.2 degrees of anteversion Caudal: 15.7 degrees of anteversion Alpha Angle: 59 degrees Lateral Center Edge Angle: 29.2 degrees 3-D reformatted images confirm findings on the axial sequences. Impression: Findings of femoral acetabular impingement with morphologic description above. Finalized by Nestor Ricketts MD on 03/10/2024 5:58 PM Normal [facility] MR ARTHROGRAM HIP LT W CONTo n 01-22-2024 MR ARTHROGRAM HIP LT W CONT MR ARTHROGRAM HIP LT W CONT CLINICAL INFORMATION: Femoral acetabular impingement; Pain of left hip. COMPARISON: 12/18/23. PROCEDURE: Routine MRI arthrogram [ hip obtained after the uncomplicated intra-articular administration contrast material. Multisequence, multiplanar imaging was obtained. FINDINGS: JOINT Hip: Abnormal alpha angle, with prominence of the left femoral head neck junction. Mild degenerative changes. Labrum: There is a tear of the base of the labrum as well as an intrasubstance extension without paralabral cyst. Chondrolabral Junction: Mild separation. Cartilage: Mild thinning. TENDONS Gluteus minimus: Normal. Gluteus medius: Normal. Iliopsoas: Normal. Bursa: Trace fluid. OTHER FINDINGS Soft tissues: Postprocedural changes. IMPRESSION: * Abnormal appearance of the anterior superior labrum consistent with tear with mild chondral labral separation. No paralabral cyst. * Prominence of the left femoral head neck junction consistent with cam-type impingement. * Mild degenerative changes. Finalized by Tacos Cornelius MD on 01/22/2024 9:49 PM Normal [facility] [place] MR/CT ARTHROGRAM HIP LT W INJon 01-21-2024 [place] MR/CT ARTHROGRAM HIP LT W INJ [place] MR/CT ARTHROGRAM HIP LT W INJ History: Femoral acetabular impingement. Exam/Technique: FLUOROSCOPICALLY GUIDED LEFT HIP INJECTION (THERAPEUTIC) The usual sterile barrier technique and local anesthesia were employed. From an anterolateral oblique approach a 22-gauge spinal needle was inserted into the hip joint under direct fluoroscopic guidance. A small amount of Omnipaque 300 was injected, confirming intra-articular position. With this confirmed, gadolinium diluted with Omnipaque, bupivacaine, and lidocaine was injected into the joint uneventfully. The procedure was well tolerated and without evidence of complications. 0.8 minutes of fluoroscopy time was used. 1 image from fluoroscopy was saved with no fluoroscopic spot views exposed. Reference Air Kerma 4.10 mGy IMPRESSION: Uneventful fluoroscopically guided left hip injection for MR arthrography. Finalized by Solo Vera MD on 01/21/2024 3:00 PM Normal [facility] XR Pelvis and Hip - left 2 V iewson 12-18-2023 AP, 45 degree Flowers lateral, and false profile x-rays of the left hip were obtained in the office today. 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 Tonus grade 1 no acute osseous abnormalities. MANUALLY TRANSCRIBED RESULTS [facility] Radiology Study observation (narrative) [facility] CNOVon 09-10-2023 CNOV Office Visit (GENSMN ) HENRIK MENJIVAR ([id number]) 1975 M Date Time Provider Department 09/10/23 10:30 AM BRAD HANNA During your visit today, we recorded the following information about you: Temperature Pulse Blood pressure Weight 98.3 degrees 75/minute 140/85 85.3 kg Height 1.727 m Sindhu Stephens MA 09/10/2023 10:33 AM Signed What is the reason for your visit today? Consult Who is your referring physician? None Are you having poor oral intake? NO Have you had unintentional weight loss of 15 lbs/7 Kg in the last 3-6 months? NO Bowels: regular Wound: None Temperature: No Drains: No Brad Hanna MD 09/14/2023 2:54 PM Signed [facility] Abdominal [facility] - HISTORY AND PHYSICAL Chief Complaint: Groin Pain HPI: Henrik Menjivar is a 47 year old male with PMHx of BPH who presents as referral from Dr. Ann for evaluation of chronic left groin pain, beginning 2 years ago. He denies preceding trauma to area and denies bulging to area. He was previously seen by PCP who ordered CT A/P and MRI Pelvis, which were without acute abnormalities. He tried 6 weeks of PT at the time and found no relief. Denies seeing an orthopedist in the past. The pain radiates to left lower abdomen occasionally and worsens with core movement and prolonged walking or jogging. 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 No pertinent past medical history. History reviewed. No pertinent surgical history. Social History Tobacco Use Smoking status: Never Smokeless tobacco: Never Additional social history not relevant to the patient's HPI History reviewed. No pertinent family history. Additional family history not relevant to the patient's HPI ALLERGIES No Known Allergies Current Outpatient Medications Medication Sig Dispense Refill montelukast (SINGULAIR) 10 mg tablet Take by mouth every 24 hours. tamsulosin (FLOMAX) 0.4 mg cetirizine (ZYRTEC) 10 mg tablet No current facility-administered medications for this visit. REVIEW OF SYSTEMS The remainder of the 12 review of systems is negative other than what was mentioned in the HPI and above. BP 140/85 Pulse 75 Temp 36.8 ?C (98.3 ?F) (Temporal) Ht 172.7 cm (5' 8 ) Wt 85.3 kg (188 lb) BMI 28.59 kg/m? Physical findings of this patient are as follows (COMPLETE 10 INCLUDING HEART AND LUNG EXAM OR CHOOSE NORMAL EXAM IF APPROPRIATE): Physical Exam Physical Exam Constitutional: The patient is well-developed, well-nourished, and in no distress. Head: Normocephalic and atraumatic. Eyes: Pupils are equal, round, and reactive to light. EOM are normal. Neck: Normal range of motion. Neck supple. Cardiovascular: Regular rhythm and normal heart sounds. Pulmonary/Chest: Effort normal and breath sounds normal. Abdominal: Soft. Bowel sounds are normal. Musculoskeletal: Normal range of motion. Neurological: He is alert. GCS score is 15. Skin: Skin is warm and dry. Psychiatric: Affect and judgment normal. Relevant Hernia Findings - no bulge to area, SLR positive, tenderness at pubis, nontender to inguinal opening LABS: No results found for: HBA1C IMAGING - Reviewed with staff CT - 12/16/21 - no inguinal hernia found US - 08/15/23 Gkry-nt-irivexep tendinosis adductor origin without tear or hyperemia. Synovial thickening of the anterior hip joint with mild hyperemia. Assessment: Henrik Menjivar is a 47 year old male who presents with chronic left groin pain. Plan: - trial of PT for adductor tendinosis and anterior hip joint thickening Patient will follow up after PT for further discussion of treatment options. All questions and concerns were answered by end of visit. Attending Note I evaluated the patient and personally participated in the du components. I agree with the resident's findings and plan as documented and have discussed the case and management of the patient's care with the resident. Signature: BRAD HANNA MD Allergies As of Date: 09/10/2023 (No Known Allergies) Date Reviewed: 09/10/2023 Reviewed by: Brad Hanna MD - Fully Assessed Reason for Visit: Consult [173] Primary Visit Diagnosis:Pain in left hip [M25.552] Order(s):CONSULT TO PHYSICAL THERAPY [9032] Order #: [id number]: 1 FUTURE Prescriptions as of 09/14/2023 - montelukast (SINGULAIR) 10 mg tablet Take by mouth every 24 hours. - tamsulosin (FLOMAX) 0.4 mg - cetirizine (ZYRTEC) 10 mg tablet Problem List As Of Date: 09/10/2023 (None) Visit Notes: >> Sindhu Stephens MA [facility] Sep 10, 2023 10:28 AM Status: Signed What is the reason for your visit today? Consult Who is your referring physician? None Are you having poor oral intake? NO Have you had unintention (more content not included)... Normal [facility] HIP LTon 08-15-2023 HIP LT * * *Final Report* * * DATE OF EXAM: Aug 15 2023 1:51PM AFU 1147 - US HIP LT / PROCEDURE REASON: Left inguinal pain * * * * Physician Interpretation * * * * MSK_US LEFT MEDIAL HIP ULTRASOUND: CLINICAL INFORMATION: Left groin pain for approximately 2 years. TECHNIQUE: Orantes-scale real-time ultrasound of the medial hip and groin with dynamic imaging and power Doppler examination was performed. Images were saved to the permanent image archive. v2-20. COMPARISON: MRI dated 12/16/21. FINDINGS: HERNIA EVALUATION: No inguinal or femoral hernia. MEDIAL HIP NERVES: LATERAL FEMORAL CUTANEOUS NERVE: Normal appearance. ILIOINGUINAL NERVE: Normal appearance. ILIOHYPOGASTRIC NERVE: Normal appearance. GENITOFEMORAL NERVE: Normal appearance. RECTUS ABDOMINIS/ADDUCTOR APONEUROTIC COMPLEX: No acute tearing of the aponeurotic/adductor tendon attachment. Mild to moderate tendinosis without tear. No increased power doppler signal. ADDUCTOR MUSCLES: The pectineus, adductor longus, adductor brevis, adductor laci, and gracilis muscles appear intact. PUBIC SYMPHYSIS: Maintained. Normal dynamic examination. ANTERIOR HIP JOINT: There is synovial thickening with mild hyperemia. No joint effusion. IMPRESSION: Ttty-jf-jesvmdeq tendinosis adductor origin without tear or hyperemia. Synovial thickening of the anterior hip joint with mild hyperemia. Chamber Walker: [facility] Transcribe Date/Time: Aug 15 2023 1:52P Dictated by : SARAH GARDNER MD This examination was interpreted and the report reviewed and electronically signed by: SARAH GARDNER MD on Aug 15 2023 1:58PM EST [id number] Normal [facility] Hip - lefton 08-15-2023 IMPRESSION: Fsrz-mp-ozxwjvuq tendinosis adductor origin without tear or hyperemia. Synovial thickening of the anterior hip joint with mild hyperemia. Chamber Walker: [facility] Transcribe Date/Time: Aug 15 2023 1:52P Dictated by : SARAH GARDNER MD This examination was interpreted and the report reviewed and electronically signed by: SARAH GARDNER MD on Aug 15 2023 1:58PM [facility] DIVISION OF RADIOLOGY * * *Final Report* * * DATE OF EXAM: Aug 15 2023 1:51PM AF 1147 - US HIP LT / PROCEDURE REASON: Left inguinal pain * * * * Physician Interpretation * * * * MSK_US LEFT MEDIAL HIP ULTRASOUND: CLINICAL INFORMATION: Left groin pain for approximately 2 years. TECHNIQUE: Orantes-scale real-time ultrasound of the medial hip and groin with dynamic imaging and power Doppler examination was performed. Images were saved to the permanent image archive. v2-20. COMPARISON: MRI dated 12/16/21. FINDINGS: HERNIA EVALUATION: No inguinal or femoral hernia. MEDIAL HIP NERVES: LATERAL FEMORAL CUTANEOUS NERVE: Normal appearance. ILIOINGUINAL NERVE: Normal appearance. ILIOHYPOGASTRIC NERVE: Normal appearance. GENITOFEMORAL NERVE: Normal appearance. RECTUS ABDOMINIS/ADDUCTOR APONEUROTIC COMPLEX: No acute tearing of the aponeurotic/adductor tendon attachment. Mild to moderate tendinosis without tear. No increased power doppler signal. ADDUCTOR MUSCLES: The pectineus, adductor longus, adductor brevis, adductor laci, and gracilis muscles appear intact. PUBIC SYMPHYSIS: Maintained. Normal dynamic examination. ANTERIOR HIP JOINT: There is synovial thickening with mild hyperemia. No joint effusion. DIVISION OF RADIOLOGY Provider, Eren Badillo - 08/15/2023 * * *Final Report* * * DATE OF EXAM: Aug 15 2023 1:51PM AFU 1147 - US HIP LT / PROCEDURE REASON: Left inguinal pain * * * * Physician Interpretation * * * * MSK_US LEFT MEDIAL HIP ULTRASOUND: CLINICAL INFORMATION: Left groin pain for approximately 2 years. TECHNIQUE: Orantes-scale real-time ultrasound of the medial hip and groin with dynamic imaging and power Doppler examination was performed. Images were saved to the permanent image archive. v2-20. COMPARISON: MRI dated 12/16/21. FINDINGS: HERNIA EVALUATION: No inguinal or femoral hernia. MEDIAL HIP NERVES: LATERAL FEMORAL CUTANEOUS NERVE: Normal appearance. ILIOINGUINAL NERVE: Normal appearance. ILIOHYPOGASTRIC NERVE: Normal appearance. GENITOFEMORAL NERVE: Normal appearance. RECTUS ABDOMINIS/ADDUCTOR APONEUROTIC COMPLEX: No acute tearing of the aponeurotic/adductor tendon attachment. Mild to moderate tendinosis without tear. No increased power doppler signal. ADDUCTOR MUSCLES: The pectineus, adductor longus, adductor brevis, adductor laci, and gracilis muscles appear intact. PUBIC SYMPHYSIS: Maintained. Normal dynamic examination. ANTERIOR HIP JOINT: There is synovial thickening with mild hyperemia. No joint effusion. IMPRESSION IMPRESSION: Bhjq-eg-lwatgllf tendinosis adductor origin without tear or hyperemia. Synovial thickening of the anterior hip joint with mild hyperemia. Chamber Walker: [facility] Transcribe Date/Time: Aug 15 2023 1:52P Dictated by : SARAH GARDNER MD This examination was interpreted and the report reviewed and electronically signed by: SARAH GARDNER MD on Aug 15 2023 1:58PM [facility] Radiology Study observation (narrative) Chava Moore US Hip - leftOrdered By: [facility] on 08-15-2023 [facility] [place] 07-11-2023 CNPN Telephone (RULTTB) HENRIK MENJIVAR ([id number]) 1975 M Date Time Provider Department 07/11/23 JACK THOMPSON RULTTB During your visit today, we recorded the following information about you: Jack Thompson 07/11/2023 9:45 AM Addendum Visit Type: ANY MSK Visit Length: 45, 50 OR 60 MINUTES Order Name/Protocol: US HIP LEFT - MEDIAL; CONCERN FOR ATHLETIC PUBALGIA/SPORTS HERNIA Preferred Provider: N/A Comment: Please ask if the patient has ever had any prior surgery to their LT GROIN. If so, upgrade the visit type to an MSK1 and notate the surgical hx in the Appointment Note. Do not link order for US PELVIS LTD. Correct order has been routed. Location: Depending on the surgical hx, this patient can have this exam performed at any of our three locations. Slot held: N/A Natalia Umana 07/11/2023 11:07 AM Signed Called patient on July 11, 2023 at 11:07 AM to schedule their MSK US exam. No answer, left VM, 1st attempt. Left stating MSK US department will call back. Natalia Umana 07/11/2023 3:06 PM Signed Patient has been scheduled for their MSK US exam on 08/15/23 : 1:35 PM at [facility]. Allergies As of Date: 07/11/2023 (Not on File) Date Reviewed: 07/10/2023 Reviewed by: Jacklyn Graf MA - Fully Assessed Reason for Visit: Appointment [186] Prescriptions as of 07/11/2023 - montelukast (SINGULAIR) 10 mg tablet Take by mouth every 24 hours. - tamsulosin (FLOMAX) 0.4 mg - cetirizine (ZYRTEC) 10 mg tablet Problem List As Of Date: 07/11/2023 (None) Encounter Status:Closed by NATALIA UMANA on 07/11/23 Normal [facility] CNOVon 07-10-2023 CNOV Office Visit (NELDA ) HENRIK MENJIVAR ([id number]) 1975 M Date Time Provider Department 07/10/23 10:30 AM LUTHER ANN During your visit today, we recorded the following information about you: Temperature Pulse Blood pressure Weight 97.6 degrees 84/minute 142/82 83 kg Height 1.727 m Jacklyn Graf MA 07/10/2023 10:08 AM Signed What is the reason for your visit today? Consult Who is your referring physician? Dr. Ann Are you having poor oral intake? NO Have you had unintentional weight loss of 15 lbs/7 Kg in the last 3-6 months? NO Bowels: regular Wound: clean AND dry Temperature: No Drains: No Filomena Arreola MD 07/10/2023 11:12 AM Signed [facility] Abdominal [facility] - HISTORY AND PHYSICAL Chief Complaint: Chronic left groin pain HPI: Henrik Menjivar is a 47 year old male with PMHx of BPH who presents for evaluation of chronic left groin pain. The patient states over the past x2 years he has experienced chronic left inguinal pain. 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 He reports evaluation by his PCP shortly after onset at which time he underwent both CT A/P and MRI pelvis which were without acute abnormality. He also attended physical therapy for a brief time (last appointment being approximately x1 year ago) but felt his pain was worsened by therapy which caused him to stop. At present, he reports constant dull pain at baseline with x2/10 severity which is localized to the external inguinal ring. He confirms intermittent radiation to the left lower abdomen. He notes this pain is reproducible with palpation and also worsened with compression shorts. He has had to stop running due to his discomfort but otherwise has been able to maintain his activity. He reports intermittent use of ibuprofen for pain management. He presents today for evaluation given ongoing pain refractory to conservative measures. He specifically raises concern for having a sports hernia. He denies prior abdominal or pelvic surgical history. 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 No past surgical history on file. Social History Tobacco Use Smoking status: Never Smokeless tobacco: Never Additional social history not relevant to the patient's HPI No family history on file. Additional family history not relevant to the patient's HPI ALLERGIES Not on File Current Outpatient Medications Medication Sig Dispense Refill montelukast (SINGULAIR) 10 mg tablet Take by mouth every 24 hours. tamsulosin (FLOMAX) 0.4 mg cetirizine (ZYRTEC) 10 mg tablet No current facility-administered medications for this visit. REVIEW OF SYSTEMS The remainder of the 12 review of systems is negative other than what was mentioned in the HPI and above. BP 142/82 Pulse 84 Temp 36.4 ?C (97.6 ?F) (Temporal) Ht 172.7 cm (5' 8 ) Wt 83 kg (183 lb) BMI 27.83 kg/m? Physical findings of this patient are as follows (COMPLETE 10 INCLUDING HEART AND LUNG EXAM OR CHOOSE NORMAL EXAM IF APPROPRIATE): Physical Exam Physical Exam Constitutional: The patient is well-developed, well-nourished, and in no distress. Head: Normocephalic and atraumatic. Eyes: Pupils are equal, round, and reactive to light. EOM are normal. Neck: Normal range of motion. Neck supple. Cardiovascular: Regular rhythm and normal heart sounds. Pulmonary/Chest: Effort normal and breath sounds normal. Abdominal: Soft. Bowel sounds are normal. Musculoskeletal: Normal range of motion. Neurological: He is alert. GCS score is 15. Skin: Skin is warm and dry. Psychiatric: Affect and judgment normal. Relevant Hernia Findings - Tenderness to palpation of left external inguinal ring. No evidence of inguinal hernia. No overlying skin changes. LABS: No results found for: HBA1C IMAGING - Reviewed with staff CT - 5/6/22 No evidence of inguinal hernia Assessment: Henrik Menjivar is a 47 year old male with PMHx of BPH who presents for evaluation of chronic left groin pain. On exam, there is no evidence of left inguinal hernia as underlying source of pain. Discussed possible etiologies of chronic pain, including athletic pubalgia, and encouraged ongoing conservative management. Will order groin US for further evaluation and refer patient to see Dr. Hanna for additional recommendations regarding management. Plan: - Obtain pelvic US for evaluation of left inguinal region - Refer patient to Dr. Hanna for evaluation and further recommendations regarding chronic pain management Plan (more content not included)... Normal [facility] HISTORY PHYSICALon HISTORY PHYSICAL HNO ID: [id number] Author: FILOMENA ARREOLA MD Service: ? Author Type: Resident Type: H&P Filed: 07/10/2023 11:12 Note Text: [facility] Abdominal [facility] - HISTORY AND PHYSICAL Chief Complaint: Chronic left groin pain HPI: Henrik Menjivar is a 47 year old male with PMHx of BPH who presents for evaluation of chronic left groin pain. The patient states over the past x2 years he has experienced chronic left inguinal pain. 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 He reports evaluation by his PCP shortly after onset at which time he underwent both CT A/P and MRI pelvis which were without acute abnormality. He also attended physical therapy for a brief time (last appointment being approximately x1 year ago) but felt his pain was worsened by therapy which caused him to stop. At present, he reports constant dull pain at baseline with x2/10 severity which is localized to the external inguinal ring. He confirms intermittent radiation to the left lower abdomen. He notes this pain is reproducible with palpation and also worsened with compression shorts. He has had to stop running due to his discomfort but otherwise has been able to maintain his activity. He reports intermittent use of ibuprofen for pain management. He presents today for evaluation given ongoing pain refractory to conservative measures. He specifically raises concern for having a sports hernia. He denies prior abdominal or pelvic surgical history. 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 No past surgical history on file. Social History Tobacco Use Smoking status: Never Smokeless tobacco: Never Additional social history not relevant to the patient's HPI No family history on file. Additional family history not relevant to the patient's HPI ALLERGIES Not on File Current Outpatient Medications Medication Sig Dispense Refill montelukast (SINGULAIR) 10 mg tablet Take by mouth every 24 hours. tamsulosin (FLOMAX) 0.4 mg cetirizine (ZYRTEC) 10 mg tablet No current facility-administered medications for this visit. REVIEW OF SYSTEMS The remainder of the 12 review of systems is negative other than what was mentioned in the HPI and above. BP 142/82 Pulse 84 Temp 36.4 ?C (97.6 ?F) (Temporal) Ht 172.7 cm (5' 8 ) Wt 83 kg (183 lb) BMI 27.83 kg/m? Physical findings of this patient are as follows (COMPLETE 10 INCLUDING HEART AND LUNG EXAM OR CHOOSE NORMAL EXAM IF APPROPRIATE): Physical Exam Physical Exam Constitutional: The patient is well-developed, well-nourished, and in no distress. Head: Normocephalic and atraumatic. Eyes: Pupils are equal, round, and reactive to light. EOM are normal. Neck: Normal range of motion. Neck supple. Cardiovascular: Regular rhythm and normal heart sounds. Pulmonary/Chest: Effort normal and breath sounds normal. Abdominal: Soft. Bowel sounds are normal. Musculoskeletal: Normal range of motion. Neurological: He is alert. GCS score is 15. Skin: Skin is warm and dry. Psychiatric: Affect and judgment normal. Relevant Hernia Findings - Tenderness to palpation of left external inguinal ring. No evidence of inguinal hernia. No overlying skin changes. LABS: No results found for: HBA1C IMAGING - Reviewed with staff CT - 06/17/21 No evidence of inguinal hernia Assessment: Henrik Menjivar is a 47 year old male with PMHx of BPH who presents for evaluation of chronic left groin pain. On exam, there is no evidence of left inguinal hernia as underlying source of pain. Discussed possible etiologies of chronic pain, including athletic pubalgia, and encouraged ongoing conservative management. Will order groin US for further evaluation and refer patient to see Dr. Hanna for additional recommendations regarding management. Plan: - Obtain pelvic US for evaluation of left inguinal region - Refer patient to Dr. Hanna for evaluation and further recommendations regarding chronic pain management Plan of care discussed with staff, Dr. Ann. Filomena Arreola MD General Surgery Resident, PGY-1 07/10/2023 10:23 AM Normal [facility] MRI PELVIS WO W CONon 2021 MRI PELVIS WO W CON EXAMINATION: MRI PELVIS WO W CON HISTORY: Injury of abdomen COMPARISON: 10/18/2021 TECHNIQUE: A complete multi-planar examination was performed to optimize visualization of suspected pathology. Images were obtained both before and after administration of intravenous Dotarem. FINDINGS: PROSTATE: Normal. Normal size for a patient of this age. No focal lesion. LYMPH NODES: Normal. No adenopathy. BLADDER: Normal. No focal wall thickening or mass. BONES: Normal. No bony lesion or fracture. No bone edema OTHER: Normal subcutaneous fat and muscle structures. No areas of significant signal abnormality within the soft tissues and muscle. IMPRESSION: Normal exam Electronically authenticated by: BRAD NEW Date: 2021-12-16 15:05 Normal [facility] CT ABD/PELV W CONon 06-18-19 CT ABD/PELV W CON EXAMINATION: CT ABD/PELV W CON, 06/17/2021 1:27 PM EDT HISTORY: Left lower quadrant pain COMPARISON: None. TECHNIQUE: CT scan of the abdomen and pelvis was performed with IV contrast. CT dose reduction technique was used, including Automated Exposure Control. FINDINGS: LUNG BASES: No visible pulmonary or pleural disease. LIVER: No enlargement, atrophy, abnormal density, or significant focal lesion. BILIARY: No dilatation or calcification. PANCREAS: No lesion, fluid collection, ductal dilatation, or atrophy. SPLEEN: No enlargement or focal lesion. ADRENALS: No mass or enlargement. KIDNEYS: No mass, obstruction, or calcification. BOWEL/MESENTERY: No visible mass, obstruction, or bowel wall thickening. AORTA/VASCULAR: No aneurysm or dissection. RETROPERITONEUM: No mass or adenopathy. LYMPH NODES: No adenopathy. URINARY BLADDER: No visible focal wall thickening, lesion, or calculus. PELVIC ORGANS: No visible mass. Pelvic organs appropriate for patient age. ABDOMINAL WALL: No mass or hernia. BONES: No bony lesion or fracture. OTHER: Negative. IMPRESSION: No acute intraperitoneal abnormality Electronically authenticated by: BRAD NEW Date: 2021-06-17 16:50 Normal [facility] CBC AUTO DIFFon 06-07-2021 BASO # 0.0 103/ul Normal 0.0-0.1 [facility] Comment on above: Performed By: #### C BC #### [facility] [address] [place] [address] Dr. Gala Johnson Basophils/100 WBC (Bld) 0.6 % Normal 0.2-2.0 [facility] Comment on above: Performed By: #### C BC #### [facility] [address] [place] [address] Dr. Gala Johnson EO # 0.1 103/ul Normal 0.0-0.7 [facility] Comment on above: Performed By: #### C BC #### [facility] [address] [place] [address] Dr. Gala Johnson Eosinophils/100 WBC (Bld) 1.2 % Normal 0.9-7.0 [facility] Comment on above: Performed By: #### C BC #### [facility] [address] [place] [address] Dr. Gala Johnson Erythrocyte distribution width (RBC) [Ratio] 13.1 % Normal 11.0-15.0 [facility] Comment on above: Performed By: #### C BC #### [facility] [address] [place] [address] Dr. Gala Johnson Hematocrit (Bld) [Volume fraction] 49.3 % Normal 42.0-54.0 [facility] Comment on above: Performed By: #### C BC #### [facility] [address] [place] [address] Dr. Gala Johnson Hemoglobin (Bld) [Mass/Vol] 15.8 g/dL Normal 14.0-18.0 [facility] Comment on above: Performed By: #### C BC #### [facility] [address] [place] [address] Dr. Gala Johnson IG # 0.02 10e3/ul Normal 0.00-0.03 [facility] Comment on above: Performed By: #### C BC #### [facility] [address] [place] [address] Dr. Gala Johnson IG % 0.3 % Normal 0.0-0.5 [facility] Comment on above: Performed By: #### C BC #### [facility] [address] [place] [address] Dr. Gala Johnson LYMPH # 2.3 103/ul Normal 1.2-3.8 [facility] Comment on above: Performed By: #### C BC #### [facility] [address] [place] [address] Dr. Gala Johnson Lymphocytes/100 WBC (Bld) 33.5 % Normal 20.5-60.0 [facility] Comment on above: Performed By: #### C BC #### [facility] [address] [place] [address] Dr. Gala Johnson MANUAL DIFF REQ NO Normal [facility] Comment on above: Performed By: #### C BC #### [facility] [address] [place] [address] Dr. Gala Johnson MCH (RBC) [Entitic mass] 30.3 pg Normal 25.9-34.0 [facility] Comment on above: Performed By: #### C BC #### [facility] [address] [place] [address] Dr. Gala Johnson MCHC (RBC) [Mass/Vol] 32.0 g/dL Normal 29.9-35.2 [facility] Comment on above: Performed By: #### C BC #### [facility] [address] [place] [address] Dr. Gala Johnson MCV (RBC) [Entitic vol] 94.4 fL Critically high 80.0-94 .0 [facility] Comment on above: Performed By: #### C BC #### [facility] [address] [place] [address] Dr. Gala Johnsno MONO # 0.6 103/ul Normal 0.3-0.8 [facility] Comment on above: Performed By: #### C BC #### [facility] [address] [place] [address] Dr. Gala Johnson Monocytes/100 WBC (Bld) 8.3 % Normal 1.7-12.0 [facility] Comment on above: Performed By: #### C BC #### [facility] [address] [place] [address] Dr. Gala Johnson NEUT # 3.8 103/ul Normal 1.4-6.5 [facility] Comment on above: Performed By: #### C BC #### [facility] [address] [place] [address] Dr. Gala Johnson Neutrophils/100 WBC (Bld) 56.1 % Normal 43.0-75.0 [facility] Comment on above: Performed By: #### C BC #### [facility] [address] [place] [address] Dr. Gala Johnson Platelet mean volume (Bld) [Entitic vol] 11.9 fL Normal 9.5-13.5 [facility] Comment on above: Performed By: #### C BC #### [facility] [address] [place] [address] Dr. Gala Johnson PLT 246 103/ul Normal 150-450 [facility] Comment on above: Performed By: #### C BC #### [facility] [address] [place] [address] Dr. Gala Johnson RBC 5.22 106/ul Normal 4.70-6.10 [facility] Comment on above: Performed By: #### C BC #### [facility] [address] [place] [address] Dr. Gala Johnson WBC 6.8 103/ul Normal 4.0-11.0 [facility] Comment on above: Performed By: #### C BC #### [facility] [address] [place], [place] [id number] Dr. Gala Johnson GLYCOHEMOGLOBIN A1Con 2021 ADA RECOMMENDATION SEE BELOW Normal [facility] Comment on above: Result Comment: ADA RECOMMENDED LIMIT 4.0 - 6.0 ADA THERAPEUTIC TARGET < 7.0 ACTION SUGGESTED > 7.0 Performed By: #### A 1C #### [facility] [address] [address] [address] Gala Johnson Glucose [Mass/Vol] 117 mg/dL Normal [facility] Comment on above: Performed By: #### A 1C #### [facility] [address] [address] [address] Gala Johnson HbA1c (Bld) [Mass fraction] 5.7 % Normal 4.5-6.2 [facility] Comment on above: Performed By: #### A 1C #### [facility] [address] [place] [address] Dr. Gala Johnson LIPID PROFILEon 06-07-2021 CHOL-HDL RATIO NORM SEE BELOW Normal [facility] Comment on above: Result Comment: 3.3 - 4.4 LOW RISK 4.4 - 7.1 AVERAGE RISK 7.1 - 11.0 MODERATE RISK >11.0 HIGH RISK Performed By: #### L IPID, TSH, CMP #### [facility] [address] [place] [address] Dr. Gala Johnson Cholesterol [Mass/Vol] 236 mg/dL Critically high <=200 [facility] Comment on above: Performed By: #### L IPID, TSH, CMP #### [facility] [address] [place] [address] Dr. Gala Johnson Cholesterol in HDL [Mass/Vol] 47 mg/dL Normal 40-60 [facility] Comment on above: Performed By: #### L IPID, TSH, CMP #### [facility] [address] [address] [address] Gala Johnson Cholesterol in LDL [Mass/Vol] 134.0 mg/dL Normal [facility] Comment on above: Performed By: #### L IPID, TSH, CMP #### [facility] [address] [place] [address] Dr. Gala Johnson Cholesterol.total/Angelique sterol in HDL [Mass ratio] 5.0 {ratio} Normal [facility] Comment on above: Performed By: #### L IPID, TSH, CMP #### [facility] [address] [place] [address] Dr. Gala Johnson HDL NORMAL > or = 60 mg/dl - LO W CARDIOVASCULAR RISK <40 mg/dl - HIGH CARDIOVASCULAR RISK Normal [facility] Comment on above: Performed By: #### L IPID, TSH, CMP #### [facility] [address] [address] [address] Gala Johnson LDL CALC NORMAL SEE BELOW Normal [facility] Comment on above: Result Comment: <100 mg/dl OPTIMAL 100 - 129 mg/dl NEAR OR ABOVE OPTIMAL 130 - 159 mg/dl BORDERLINE HIGH 160 - 189 mg/dl HIGH >190 mg/dl VERY HIGH Performed By: #### L IPID, TSH, CMP #### [facility] [address] [address] [address] Gala Johnson Triglyceride [Mass/Vol] 275 mg/dL Critically high <=150 [facility] Comment on above: Performed By: #### L IPID, TSH, CMP #### [facility] [address] [place] [address] Dr. Gala Johnson VLDL CALC 55.0 mg/dL Normal [facility] Comment on above: Performed By: #### L IPID, TSH, CMP #### [facility] [address] [place] [address] Dr. Gala Johnson PROF 14(COMP METB)on 022 Albumin [Mass/Vol] 4.2 g/dL Normal 3.4-5.0 [facility] Comment on above: Performed By: #### L IPID, TSH, CMP #### [facility] [address] [place] [address] Dr. Gala Johnson Albumin/Globulin [Mass ratio] 1.2 {ratio} Normal [facility] Comment on above: Performed By: #### L IPID, TSH, CMP #### [facility] [address] [place] [address] Dr. Gala Johnson ALP [Catalytic activity/Vol] 72 U/L Normal 46-116 [facility] Comment on above: Performed By: #### L IPID, TSH, CMP #### [facility] [address] [place] [address] Dr. Gala Johnson ALT [Catalytic activity/Vol] 30 U/L Normal 16-63 [facility] Comment on above: Performed By: #### L IPID, TSH, CMP #### [facility] [address] [place] [address] Dr. Gala Johnson Anion gap [Moles/Vol] 11.7 mmol/L Normal [facility] Comment on above: Performed By: #### L IPID, TSH, CMP #### [facility] [address] [place] [address] Dr. Gala Johnson AST [Catalytic activity/Vol] 18 U/L Normal 15-37 [facility] Comment on above: Performed By: #### L IPID, TSH, CMP #### [facility] [address] [place] [address] Dr. Gala Johnson Bilirubin [Mass/Vol] 0.7 mg/dL Normal 0.2-1.0 [facility] Comment on above: Performed By: #### L IPID, TSH, CMP #### [facility] [address] [place] [address] Dr. Gala Johnson Calcium [Mass/Vol] 8.6 mg/dL Normal 8.5-10.1 [facility] Comment on above: Performed By: #### L IPID, TSH, CMP #### [facility] [address] [place] [address] Dr. Gala Johnson Chloride [Moles/Vol] 101 mmol/L Normal 98-107 [facility] Comment on above: Performed By: #### L IPID, TSH, CMP #### [facility] [address] [place] [address] Dr. Gala Johnson CO2 [Moles/Vol] 29.1 mmol/L Normal 21.0-32.0 [facility] Comment on above: Performed By: #### L IPID, TSH, CMP #### [facility] [address] [place] [address] Dr. Gala Johnson Creatinine [Mass/Vol] 0.91 mg/dL Normal 0.70-1.30 [facility] Comment on above: Performed By: #### L IPID, TSH, CMP #### [facility] [address] [address] [address] Glaa Johnson EGFR-AF ETHIOPIAN >60 Normal >=60 [facility] Comment on above: Performed By: #### L IPID, TSH, CMP #### [facility] [address] [address] [address] Gala Johnson EGFR-NON AF ETHIOPIAN >60 Normal >=60 [facility] Comment on above: Performed By: #### L IPID, TSH, CMP #### [facility] [address] [address] [address] Gala Johnson Globulin (S) [Mass/Vol] 3.4 g/dL Normal [facility] Comment on above: Performed By: #### L IPID, TSH, CMP #### [facility] [address] [address] [address] Gala Johnson Glucose [Mass/Vol] 86 mg/dL Normal 74-106 [facility] Comment on above: Performed By: #### L IPID, TSH, CMP #### [facility] [address] [address] [address] Gala Johnson Potassium [Moles/Vol] 3.8 mmol/L Normal 3.5-5.1 [facility] Comment on above: Performed By: #### L IPID, TSH, CMP #### [facility] [address] [address] [address] Gala Johnson Protein [Mass/Vol] 7.6 g/dL Normal 6.1-8.2 [facility] Comment on above: Performed By: #### L IPID, TSH, CMP #### [facility] [address] [address] [address] Gala Johnson Sodium [Moles/Vol] 138 mmol/L Normal 136-145 [facility] Comment on above: Performed By: #### L IPID, TSH, CMP #### [facility] [address] [address] [address] Gala Johnson Urea nitrogen [Mass/Vol] 13.0 mg/dL Normal 7.0-18.0 [facility] Comment on above: Performed By: #### L IPID, TSH, CMP #### [facility] [address] [address] [address] Gala Johnson Urea nitrogen/Creatinine [Mass ratio] 14.3 mg/mg Normal [facility] Comment on above: Performed By: #### L IPID, TSH, CMP #### [facility] [address] [place] [address] Dr. Gala Johnson TSHon 06-07-2021 TSH 1.610 uIU/mL Normal 0.470-4.680 [facility] Comment on above: Performed By: #### L IPID, TSH, CMP #### [facility] [address] [place] [address] Dr. Gala Johnson TSH RANGE SEE BELOW Normal [facility] Comment on above: Result Comment: <0.3 4 UIU/ml HYPERTHYROID 0.34-5.60 UIU/ml EUTHYROID >5.60 UIU/ml HYPOTHYROID Performed By: #### L IPID, TSH, CMP #### [facility] [address] [place] [address] Dr. Gala Johnson UA RANDOM W/MICROSCOPICon BACTERIA NONE SEEN Normal NONE SEEN [facility] Comment on above: Performed By: #### U AMIC #### [facility] [address] [place] [address] Dr. Gala Johnson Bilirubin Ql (U) Negative Normal NEGATIVE [facility] Comment on above: Performed By: #### U AMIC #### [facility] [address] [place] [address] Dr. Gala Johnson CAST NONE SEEN Normal NONE SEEN [facility] Comment on above: Performed By: #### U AMIC #### [facility] [address] [place] [address] Dr. Gala Johnson Clarity (U) CLEAR Normal CLEAR [facility] Comment on above: Performed By: #### U AMIC #### [facility] [address] [place] [address] Dr. Gala Johnson Color (U) LT. YELLOW Normal YELLOW [facility] Comment on above: Performed By: #### U AMIC #### [facility] [address] [address] [address] Gala Johnson Crystals LM Nom (Urine sed) NONE SEEN Normal NONE SEEN [facility] Comment on above: Performed By: #### U AMIC #### [facility] [address] [address] [address] Gala Johnson Epithelial cells LM Ql (Urine sed) NONE SEEN Normal NONE SEEN /RARE [facility] Comment on above: Performed By: #### U AMIC #### [facility] [address] [address] [address] Gala Johnson Glucose Ql (U) Negative Normal NEGATIVE [facility] Comment on above: Performed By: #### U AMIC #### [facility] [address] [address] [address] Gala Johnson Hemoglobin Ql (U) Negative Normal NEGATIVE [facility] Comment on above: Performed By: #### U AMIC #### [facility] [address] [address] [address] Gala Johnson Ketones Ql (U) Negative Normal NEGATIVE [facility] Comment on above: Performed By: #### U AMIC #### [facility] [address] [address] [address] Gala Johnson LEUKOCYTES Negative Normal NEGATIVE [facility] Comment on above: Performed By: #### U AMIC #### [facility] [address] [address] [address] Gala Johnson MUCOUS NONE SEEN Normal NONE SEEN [facility] Comment on above: Performed By: #### U AMIC #### [facility] [address] [address] [address] Gala Johnson Nitrite Ql (U) Negative Normal NEGATIVE [facility] Comment on above: Performed By: #### U AMIC #### [facility] [address] [address] [address] Gala Johnson pH (U) 6.5 [pH] Normal 5-9 [facility] Comment on above: Performed By: #### U AMIC #### [facility] [address] [place] [address] Dr. Gala Johnson RBC NONE SEEN Abnormal 0-2 [facility] Comment on above: Performed By: #### U AMIC #### [facility] [address] [place] [address] Dr. Gala Johnson SPEC GRAVITY 1.010 Normal 1.005-<=1.02 5 [facility] Comment on above: Performed By: #### U AMIC #### [facility] [address] [place] [address] Dr. Gala Johnson UA PROTEIN Negative Normal NEGATIVE/ TRACE [facility] Comment on above: Performed By: #### U AMIC #### [facility] [address] [place] [address] Dr. Gala Johnson Urobilinogen Qn (U) 0.2 {Tarun'U}/dL Normal 0.2 - 1. 0 [facility] Comment on above: Performed By: #### U AMIC #### [facility] [address] [place] [address] Dr. Gala Johnson WBC NONE SEEN Normal NONE SEEN [facility] Comment on above: Performed By: #### U AMIC #### [facility] [address] [place] [address] Dr. Gala Johnson [facility]on SARS-CoV-2 (COVID-19) RNA ABBY+probe Ql (Unsp spec) Not detected Normal NOT DETECTED [facility] Comment on above: Result Comment: When diagnostic testing is negative, the possibility of a false negative should be considered in the context of a patient's recent exposures and the presence of clinical signs and symptoms consistent with SARS-CoV-2. This test is not yet approved or cleared by the [place] Food and Drug Administration (FDA). This test was developed by [employer], [place], [place]. The performance characteristics of this test were validated by [facility]. The results are not intended to be used as the sole means for clinical diagnosis or patient management decisions. [facility] is authorized under Clinical Laboratory Improvement Amendments (CLIA) to perform high- complexity testing. This test is not yet approved or cleared by the [place] FDA. When there are no FDA-approved or cleared tests available, and other criteria are met, FDA can make tests available under an emergency access mechanism called an Emergency Use Authorization (EUA). The EUA for this test is supported by the [place] of Health and Human Service's declaration that circumstances exist to justify the emergency use of in vitro diagnostics for the detection and/or diagnosis of the virus that causes COVID-19. This EUA will remain in effect for the duration of the COVID-19 declaration justifying emergency of IVDs, unless it is terminated or revoked by the FDA (after which the test may no longer be used). Performed By: #### C [facility] #### [facility] [address] [place] [address] Dr. Gala Johnson Vital Signs Date Time Vital Sign Value Performing Clinician Facility 08-25-2024 12:52-0400 Body height 172.7 cm Jeana Pierce MD Work Phone: [facility] 08-25-2024 12:52-0400 Body mass index (BMI) [Ratio] 29.19 kg/m2 Jeana Pierce MD Work Phone: [facility] 08-25-2024 12:52-0400 Body weight 87.09 kg Jeana Pierce MD Work Phone: [facility] 07-01-2024 12:27-0400 Body height 172.7 cm Jeana Pierce MD Work Phone: [facility] 07-01-2024 12:27-0400 Body mass index (BMI) [Ratio] 29.19 kg/m2 Jeana Pierce MD Work Phone: [facility] 07-01-2024 12:27-0400 Body weight 87.09 kg Jeana Pierce MD Work Phone: [facility] 06-03-2024 14:09-0400 Body height 172.7 cm Jeana Pierce MD Work Phone: [facility] 06-03-2024 14:09-0400 Body mass index (BMI) [Ratio] 29.19 kg/m2 Jeana Pierce MD Work Phone: [facility] [employer] [facility] 06-03-2024 14:09-0400 Body weight 87.09 kg Jeana Pierce MD Work Phone: [facility] 05-05-2024 10:55-0400 Body height 172.7 cm Jeana Pierce MD Work Phone: [facility] 05-05-2024 10:55-0400 Body mass index (BMI) [Ratio] 29.19 kg/m2 Jeana Pierce MD Work Phone: [facility] 05-05-2024 10:55-0400 Body weight 87.09 kg Jeana Pierce MD Work Phone: [facility] 12-18-2023 13:34-0500 Body height 175.3 cm Jeana Pierce MD Work Phone: [facility] 12-18-2023 13:34-0500 Body mass index (BMI) [Ratio] 28.65 kg/m2 Jeana Pierce MD Work Phone: [facility] 12-18-2023 13:34-0500 Body weight 88 kg Jeana Pierce MD Work Phone: [facility] 09-10-2023 10:31-0400 Body height 172.7 cm Brad Hanna MD Work Phone: [facility] 09-10-2023 10:31-0400 Body mass index (BMI) [Ratio] 28.59 kg/m2 Brad Hanna MD Work Phone: [facility] 09-10-2023 10:31-0400 Body temperature 98.29 [degF] Brda Hanna MD Work Phone: [facility] 09-10-2023 10:31-0400 Body weight 85.28 kg Brad Hanna MD Work Phone: [facility] 07-29-2024 10:31-0400 Diastolic blood pressure 85 mm[Hg] Brad Hanna MD Work Phone: [facility] 09-10-2023 10:31-0400 Heart rate 75 /min Brad Hanna MD Work Phone: [facility] 09-10-2023 10:31-0400 Systolic blood pressure 140 mm[Hg] Brad Hanna MD Work Phone: [facility] 07-10-2023 10:06-0400 Body height 172.7 cm Luther Ann MD Work Phone: [facility] 07-10-2023 10:06-0400 Body mass index (BMI) [Ratio] 27.83 kg/m2 Luther Ann MD Work Phone: [facility] 07-10-2023 10:06-0400 Body temperature 97.59 [degF] Luther Ann MD Work Phone: [facility] 07-10-2023 10:06-0400 Body weight 83.01 kg Luther Ann MD Work Phone: [facility] 07-10-2023 10:06-0400 Diastolic blood pressure 82 mm[Hg] Luther Ann MD Work Phone: [facility] 07-10-2023 10:06-0400 Heart rate 84 /min Luther Ann MD Work Phone: [facility] 07-10-2023 10:06-0400 Systolic blood pressure 142 mm[Hg] Luther Ann MD Work Phone: [facility] 09-22-2022 14:15-0400 Body height 172.72 cm Luther Nicolas Other [employer] Other 09-22-2022 14:15-0400 Body mass index (BMI) [Ratio] 27.52 kg/m2 Luther Nicolas Other [employer] Other 09-22-2022 14:15-0400 Body weight 82.1 kg Luther Nicolas Other [employer] Other 09-22-2022 14:15-0400 Diastolic blood pressure 81 mm[Hg] Luther Nicolas Other [employer] Other 09-22-2022 14:15-0400 Respiratory rate 12 /min Luther Nicolas Other [employer] Other 09-22-2022 14:15-0400 Systolic blood pressure 121 mm[Hg] Luther Nicolas Other [employer] Other Encounters Encounter Date Encounter Type Care Provider Facility Start: 10-10-2024 End: 10-10-2024 ambulatory Luther Nicolas DO Work Phone: [facility] Work Phone: Start: 10-10-2024 End: 10-10-2024 Departed Referred Jorge David DO [facility] [facility] [address] Work Phone: Start: 09-04-2024 End: 09-04-2024 Treatment Alejandar Lee [employer] Work Phone: [facility] Comment on above: Left hip pain (Prima ry Dx); Femoroacetabular impingement of left hip; Articular cartilage disorder of left hip Start: 09-02-2024 End: 09-02-2024 Treatment Lucy Fay [employer] [facility] Comment on above: Left hip pain (Prima ry Dx); Femoroacetabular impingement of left hip; Articular cartilage disorder of left hip Start: 08-29-2024 End: 08-29-2024 Treatment Alejandra Lee [employer] Work Phone: [facility] Comment on above: Left hip pain (Prima ry Dx); Femoroacetabular impingement of left hip; Articular cartilage disorder of left hip Start: 08-25-2024 End: 08-25-2024 Office outpatient visit 15 minutes Jeana Pierce MD Work Phone: [facility] Comment on above: Femoroacetabular imp ingement of left hip (Primary Dx) Start: 08-25-2024 End: 08-25-2024 ambulatory [facility] Start: 07-29-2024 End: 07-29-2024 Treatment Alejandra Lee [employer] Work Phone: [facility] Comment on above: Left hip pain (Prima ry Dx); Femoroacetabular impingement of left hip; Articular cartilage disorder of left hip Start: 07-29-2024 End: 07-29-2024 Bamboo flowsheet Alejandra Lee [employer] Work Phone: [facility] Start: 07-29-2024 End: 07-29-2024 Bamboo flowsheet Alejandra Lee [employer] Work Phone: [facility] Start: 07-22-2024 End: 07-22-2024 Treatment Alejandra Lee [employer] Work Phone: [facility] Comment on above: Left hip pain (Prima ry Dx); Femoroacetabular impingement of left hip; Articular cartilage disorder of left hip Start: 07-22-2024 End: 07-22-2024 Bamboo flowsheet Alejandra Lee [employer] Work Phone: [facility] Start: 07-22-2024 End: 07-22-2024 Bamboo flowspreeti Lee [employer] Work Phone: [facility] Start: 07-18-2024 End: 07-18-2024 Bamboo flowsheet Micheal Savage PT Work Phone: [facility] Start: 07-18-2024 End: 07-18-2024 Bamboo flowsheet Micheal Savage PT Work Phone: [facility] Start: 07-18-2024 End: 07-18-2024 Treatment Micheal Savage PT Work Phone: [facility] Comment on above: Left hip pain (Prima ry Dx); Femoroacetabular impingement of left hip; Articular cartilage disorder of left hip Start: 07-10-2024 End: 07-10-2024 Treatment Alejandra Lee [employer] Work Phone: [facility] Comment on above: Left hip pain (Prima ry Dx); Femoroacetabular impingement of left hip; Articular cartilage disorder of left hip Start: 07-10-2024 End: 07-10-2024 Bamboo flowsheet Alejandra Lee [employer] Work Phone: [facility] Start: 07-10-2024 End: 07-10-2024 Bamboo flowsheet Alejandra Lee [employer] Work Phone: [facility] Start: 07-01-2024 End: 07-01-2024 Bamboo flowsheet Micheal Savage PT Work Phone: [facility] Start: 07-01-2024 End: 07-01-2024 Bamboo flowsheet Micheal Savage PT Work Phone: [facility] Start: 07-01-2024 End: 07-01-2024 Postop follow up visit related to original px Jeana Pierce MD Work Phone: [facility] Comment on above: Postoperative visit (Primary Dx) Start: 07-01-2024 End: 07-01-2024 Treatment Micheal Savage PT Work Phone: [facility] Comment on above: Left hip pain (Prima ry Dx); Femoroacetabular impingement of left hip; Articular cartilage disorder of left hip Start: 06-27-2024 End: 06-27-2024 Bamboo flowsheet Micheal Savage PT Work Phone: [facility] Start: 06-27-2024 End: 06-27-2024 Bamboo flowsheet Micheal Savage PT Work Phone: [facility] Start: 06-27-2024 End: 06-27-2024 Treatment Micheal Savage PT Work Phone: [facility] Comment on above: Left hip pain (Prima ry Dx); Femoroacetabular impingement of left hip; Articular cartilage disorder of left hip Start: 06-24-2024 End: 06-24-2024 Treatment Lucy Fay [employer] [facility] Comment on above: Left hip pain (Prima ry Dx); Femoroacetabular impingement of left hip; Articular cartilage disorder of left hip Start: 06-24-2024 End: 06-24-2024 Bamboo flowsheet Lucy Fay [employer] [facility] Start: 06-24-2024 End: 06-24-2024 Bamboo flowsheet Lucy Fay [employer] [facility] Start: 06-20-2024 End: 06-20-2024 Bamboo flowsheet Micheal Savage PT Work Phone: [facility] Start: 06-20-2024 End: 06-20-2024 Bamboo flowsheet Micheal Savage PT Work Phone: [facility] Start: 06-20-2024 End: 06-20-2024 Treatment Micheal Savage PT Work Phone: [facility] Comment on above: Left hip pain (Prima ry Dx); Femoroacetabular impingement of left hip; Articular cartilage disorder of left hip Start: 06-17-2024 End: 06-17-2024 Treatment Lucy Fay [employer] [facility] Comment on above: Left hip pain (Prima ry Dx); Femoroacetabular impingement of left hip; Articular cartilage disorder of left hip Start: 06-17-2024 End: 06-17-2024 Bamboo flowsheet Lucy Fay [employer] [facility] Start: 06-17-2024 End: 06-17-2024 Bamboo flowsheet Lucy Fay [employer] [facility] Start: 06-13-2024 End: 06-13-2024 Bamboo flowsheet Micheal Savage PT Work Phone: [facility] Start: 06-13-2024 End: 06-13-2024 Bamboo flowsheet Micheal Savage PT Work Phone: [facility] Start: 06-13-2024 End: 06-13-2024 Treatment Micheal Savage PT Work Phone: [facility] Comment on above: Left hip pain (Prima ry Dx); Femoroacetabular impingement of left hip; Articular cartilage disorder of left hip Start: 06-03-2024 End: 06-03-2024 Bamboo flowsheet Micheal Savage PT Work Phone: [facility] Start: 06-03-2024 End: 06-03-2024 Bamboo flowsheet Micheal Savage PT Work Phone: [facility] Start: 06-03-2024 End: 06-03-2024 Postop follow up visit related to original px Jeana Pierce MD Work Phone: [facility] Comment on above: Left hip pain (Prima ry Dx) Start: 06-03-2024 End: 06-03-2024 Evaluation Micheal Savage PT Work Phone: [facility] Comment on above: Left hip pain (Prima ry Dx); Femoroacetabular impingement of left hip; Articular cartilage disorder of left hip Start: 05-21-2024 End: 05-21-2024 Orders Only [facility] Comment on above: Femoroacetabular imp ingement of left hip (Primary Dx); 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 Start: 05-21-2024 End: 05-21-2024 Evaluation and management of inpatient JEANA PIERCE [facility] Start: 05-15-2024 End: 05-15-2024 Orders Only Jeana Pierce MD Work Phone: [facility] Comment on above: Femoroacetabular imp ingement of left hip (Primary Dx) Start: 05-07-2024 End: 05-07-2024 Admission to [facility] Phone Call Provider 1 [facility] Start: 05-07-2024 End: 05-07-2024 Evaluation and management of inpatient LUTHER NICOLAS [facility] Start: 05-05-2024 End: 05-05-2024 Office outpatient visit 25 minutes Jeana Pierce MD Work Phone: [facility] Comment on above: Femoroacetabular imp ingement of left hip (Primary Dx) Start: 05-05-2024 End: 05-05-2024 ambulatory [facility] Start: 03-07-2024 End: 03-07-2024 [facility] Start: 01-23-2024 End: 01-23-2024 Telephone encounter Jeana Pierce MD Work Phone: [facility] Start: 01-21-2024 End: 01-21-2024 [facility] Start: 12-18-2023 End: 12-18-2023 Office outpatient new 30 minutes Jeana Pierce MD Work Phone: [facility] Comment on above: Femoroacetabular imp ingement of left hip (Primary Dx); Left hip pain; Femoral acetabular impingement; Pain of left hip Start: 12-18-2023 Patient encounter status Cornell Nicolas DO Work Phone: [facility] Start: 12-18-2023 End: 12-18-2023 ambulatory [facility] Start: 10-26-2023 End: 10-26-2023 Bamboo flowsheet Alejandra Lee [employer]ENT Work Phone: [facility] Start: 10-26-2023 End: 10-26-2023 Bamboo flowsheet Alejandra Lee [employer]ENT Work Phone: [facility] Start: 10-26-2023 End: 10-26-2023 ambulatory Alejandra Lee [employer] Work Phone: [facility] Comment on above: Right hip pain (Prim augusto Dx); Femoral acetabular impingement Start: 10-23-2023 End: 10-23-2023 ambulatory Lucy Fay [employer] [facility] Comment on above: Right hip pain (Prim augusto Dx); Femoral acetabular impingement Start: 10-23-2023 End: 10-23-2023 Bamboo flowsheet Lucy Fay [employer] AGENT [facility] Start: 10-23-2023 End: 10-23-2023 Bamboo flowsheet Lucy Fay [employer]ENT [facility] Start: 10-19-2023 End: 10-19-2023 ambulatory Alejandra Lee [employer]ENT Work Phone: [facility] Comment on above: Right hip pain (Prim augusto Dx); Femoral acetabular impingement Start: 10-18-2023 End: 10-18-2023 ambulatory Alejandra Lee [employer] AGENT Work Phone: [facility] Comment on above: Right hip pain (Prim augusto Dx); Femoral acetabular impingement Start: 10-18-2023 End: 10-18-2023 Bamboo flowsheet Alejandra Lee FBI FI[employer] AGENT Work Phone: [facility] Start: 10-18-2023 End: 10-18-2023 Bamboo flowsheet Alejandra Lee [employer] FI[employer] AGENT Work Phone: [facility] Start: 10-12-2023 End: 10-12-2023 ambulatory Micheal Savage PT Work Phone: [facility] Comment on above: Right hip pain (Prim augusto Dx); Femoral acetabular impingement Start: 10-11-2023 End: 10-11-2023 ambulatory Micheal Savage PT Work Phone: [facility] Comment on above: Right hip pain (Prim augusto Dx); Femoral acetabular impingement Start: 10-11-2023 End: 10-11-2023 Bamboo flowsheet Micheal Savage PT Work Phone: [facility] Start: 10-11-2023 End: 10-11-2023 Bamboo flowsheet Micheal Savage PT Work Phone: [facility] Start: 10-05-2023 End: 10-05-2023 ambulatory Micheal Savage PT Work Phone: [facility] Comment on above: Right hip pain (Prim augusto Dx); Femoral acetabular impingement Start: 10-04-2023 End: 10-04-2023 ambulatory Micheal Savage PT Work Phone: [facility] Comment on above: Right hip pain (Prim augusto Dx); Femoral acetabular impingement Start: 10-04-2023 End: 10-04-2023 Bamboo flowsheet Micheal Savage PT Work Phone: [facility] Start: 10-04-2023 End: 10-04-2023 Bamboo flowsheet Micheal Savage PT Work Phone: [facility] Start: 09-10-2023 End: 09-10-2023 ambulatory BRAD HANNA Facility:[facility] Start: 09-10-2023 End: 09-10-2023 Patient encounter procedure Brad Hanna MD Work Phone: General Surgery Comment on above: Pain in left hip (Pr imary Dx) Start: 08-15-2023 End: 08-15-2023 ambulatory LUTHER ANN Facility:[facility] Start: 08-15-2023 End: 08-15-2023 Subsequent hospital visit by physician [facility] Work Phone: Radiology Comment on above: Left inguinal pain [ R10.32] Start: 07-11-2023 Telephone encounter [facility] Comment on above: Appointment Left inguinal pain ( Primary Dx) Start: 07-10-2023 End: 07-10-2023 Patient encounter procedure Luther Ann MD Work Phone: General Surgery Comment on above: Left inguinal pain ( Primary Dx) Start: 07-10-2023 End: 07-10-2023 ambulatory LUTHER ANN Facility:[facility] Start: 09-29-2022 End: 09-29-2022 ambulatory Luther Nicolas Other [employer] Other Start: 09-29-2022 Telephone encounter Luther Nicolas FP [facility] Start: 09-25-2022 End: 09-25-2022 ambulatory Luther Nicolas Other [employer] Other Start: 09-25-2022 Encounter for genera l adult medical examination without abnormal findings Luther Nicolas [facility] Start: 09-25-2022 Telephone encounter Luther Nicolas FP [facility] Start: 09-22-2022 End: 09-22-2022 ambulatory Luther Nicolas Other [employer] Other Start: 09-22-2022 Encounter for genera l adult medical examination without abnormal findings Luther Nicolas [facility] Start: 09-22-2022 Periodic preventive med 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 patient 40-64yrs Luther Nicolas [facility] Start: 12-16-2021 End: 12-17-[address] LUTHER NICOLAS Facility:[facility] Start: 06-17-2021 End: 06-18-[address] LUTHER NICOLAS Facility:[facility] Start: 06-09-2021 Encounter for genera l adult medical examination without abnormal findings DR LUTHER NICOLAS [facility] Start: 06-07-2021 End: 06-08-[address] LUTHER NICOLAS Facility:[facility] Start: 06-07-2021 End: 06-08-2021 Encounter for general adult medical examination without abnormal findings DR LUTHER NICOLAS Facility:[facility] Start: 02-15-2021 End: 02-15-[address] LUTHER NICOLAS Facility:[facility] Start: 08-18-[address] LUTHER NICOLAS Facili ty:[facility] Procedures Date Procedure Procedure Detail Performing Clinician Start: 05-05-2024 Follow-up visit Follow-up JEANA PIERCE Start: 08-15-2023 Us compl joint r-t w /image documentation Luther Ann MD Work Phone: Start: 12-18-2022 Colonoscopy Alejandra W right [employer] AGENT Work Phone: Start: 11-23-2022 Colonoscopy Micheal Will gs PT Work Phone: Start: 06-07-[address] SAINI [facility] Comment on above: Performed By: #### [facility] #### [facility] [address] [place] [address] Dr. Gala Johnson Plan of Treatment Date Care Activity Detail Author Start: 12-18-2032 Screening for malign ant neoplasm of colon [facility] Start: 11-23-2032 Screening for malign ant neoplasm of colon [facility] Start: 08-25-2025 Adult BMI Screening Adult BMI Screen ing [facility] Start: 07-01-2025 Adult BMI Screening Adult BMI Screen ing [facility] Start: 07-01-2025 Tobacco Screening Tobacco Screening [facility] Start: 06-03-2025 Adult BMI Screening Adult BMI Screen ing [facility] Start: 05-21-2025 Adult BMI Screening Adult BMI Screen ing [facility] Start: 05-21-2025 Tobacco Screening Tobacco Screening [facility] Start: 05-07-2025 Tobacco Screening Tobacco Screening [facility] Start: 05-05-2025 Adult BMI Screening Adult BMI Screen ing [facility] Start: 05-05-2025 Tobacco Screening Tobacco Screening [facility] Start: 01-20-2025 Adult BMI Screening Adult BMI Screen ing [facility] Start: 12-17-2024 Adult BMI Screening Adult BMI Screen ing [facility] Start: 10-13-2024 Influenza vaccination [facility] Start: 10-06-2024 End: 10-06-2024 Patient encounter procedure 10/06/2024 1:40 PM EDT [facility] [address] [place] [address] Jeana Pierce MD [address] [place] [address] [facility] Start: 09-04-2024 End: 09-04-2024 ambulatory 09/04/2024 5:00 PM EDT Treatment [facility] [address] [place] [phone] Alejandra Lee, FBI FIELD AGENT [address] [place] [address] [facility] Start: 09-02-2024 End: 09-02-2024 ambulatory 09/02/2024 5:00 PM EDT Treatment [facility] [address] [place] [phone] Lucy Fay, LOIDA [facility] Start: 08-25-2024 End: 08-25-2024 Patient encounter procedure 08/25/2024 12:55 PM EDT Office Visit [facility] [address] [place] [phone] Jeana Pierce MD [address] [place] [phone] [facility] Start: 07-29-2024 End: 07-29-2024 ambulatory 07/29/2024 5:30 PM EDT Treatment [facility] [address] [place] [phone] Alejandra Lee, FBI FIELD AGENT [address] [place] [address] Arrived [facility] Comment on above: Arrived Start: 07-22-2024 End: 07-22-2024 ambulatory 07/22/2024 5:30 PM EDT Treatment [facility] [address] [place] [phone] Alejandra Lee, FBI FIELD AGENT [address] [place] [address] [facility] Start: 07-18-2024 End: 07-18-2024 ambulatory 07/18/2024 1:30 PM EDT Treatment [facility] [address] [place] [phone] Alejandra Lee, FBI FIELD AGENT [address] [place] [address] [facility] Start: 07-10-2024 End: 07-10-2024 ambulatory [facility] Comment on above: Left hip pain (Prima ry Dx) Start: 07-08-2024 End: 07-08-2024 ambulatory [facility] Start: 07-04-2024 End: 07-04-2024 ambulatory 07/04/2024 1:30 PM EDT Treatment [facility] [address] [place] [phone] Alejandra Lee, FBI FIELD AGENT [address] [place] [address] [facility] Start: 07-01-2024 End: 07-01-2024 Patient encounter procedure 07/01/2024 12:30 PM EDT Office Visit [facility] [address] [place] [phone] Jeana Pierce MD [address] [place] [address] [facility] Start: 07-01-2024 End: 07-01-2024 ambulatory [facility] Comment on above: Arrived Start: 06-27-2024 End: 06-27-2024 ambulatory 06/27/2024 1:00 PM EDT Treatment [facility] [address] [place] [phone] Micheal Savage, PT [address] [place] [address] [facility] Start: 06-24-2024 End: 06-24-2024 ambulatory 06/24/2024 5:00 PM EDT Treatment [facility] [address] [place] [address] Lucy Fay PTA [facility] Start: 06-20-2024 End: 06-20-2024 ambulatory [facility] Comment on above: Arrived Start: 06-17-2024 End: 06-17-2024 ambulatory 06/17/2024 5:00 PM EDT Treatment [facility] [address] [place] [phone] Lucy Fay PTA [facility] Start: 06-13-2024 End: 06-13-2024 ambulatory 06/13/2024 1:00 PM EDT Treatment [facility] [address] [place] [phone] Micheal Savage, PT [address] [place] [address] [facility] Start: 06-03-2024 End: 06-03-2024 Patient encounter procedure 06/03/2024 1:45 PM EDT Office Visit [facility] [address] [place] [address] Jeana Pierce MD [address] [place] [address] [facility] Start: 06-03-2024 End: 06-03-2024 ambulatory 06/03/2024 9:00 AM EDT Evaluation [facility] [address] [place] [phone] Micheal Savage, PT [address] [place] [address] Arrived [facility] Comment on above: Arrived Start: 05-21-2024 End: 05-21-2024 Admission to same day surgery center 05/21/2024 11:45 AM EDT - 05/21/2024 2:15 PM EDT Surgery [facility] Surgery [address] 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 [place], [place] [phone] Jeana Pierce MD [address] [place] [address] [facility] Surgery Start: 05-07-2024 End: 05-07-2024 Admission to establishment 05/07/2024 9:30 AM EDT Support Visit [facility] On [address] [address] [facility] Start: 12-18-2023 End: 12-17-2024 Fluoroscopy MR/CT inj arthrogram hip left with guidance Fluoroscopy MR/CT inj arthrogram hip left with guidance Imaging Routine Femoral acetabular impingement Expected: 12/18/2023, Expires: 12/17/2024 [employer] Work Phone: Comment on above: Expected: 12/18/2023 , Expires: 12/17/2024 Start: 12-18-2023 End: 12-17-2024 MR Hip - left Arthrogram MR arthrogram hip left with contrast Imaging Routine Femoral acetabular impingement Pain of left hip Expected: 12/18/2023, Expires: 12[facility]17[facility] Comment on above: Expected: 12/18/2023 , Expires: 12/17/2024 Start: 10-26-2023 End: 10-26-2023 ambulatory [facility] Comment on above: Arrived Start: 10-23-2023 End: 10-23-2023 ambulatory 10/23/2023 3:00 PM EDT Treatment [facility] [address] [place] [phone] Alejandra Lee, FBI FIELD AGENT [address] [place] [address] [facility] Start: 10-19-2023 End: 10-19-2023 ambulatory 10/19/2023 1:30 PM EDT Treatment [facility] [address] [place] [phone] Alejandra Lee, FBI FIELD AGENT [address] [place] [address] [facility] Start: 10-18-2023 End: 10-18-2023 ambulatory [facility] Start: 10-14-2023 COVID-19 Vaccine ( season) COVID-19 Vaccine ( season) [facility] Start: 10-14-2023 Influenza vaccination [facility] Start: 10-12-2023 End: 10-12-2023 ambulatory 10/12/2023 1:30 PM EDT Treatment [facility] [address] [place] [phone] Micheal Savage, PT [address] [place] [address] [facility] Start: 10-11-2023 End: 10-11-2023 ambulatory 10/11/2023 5:00 PM EDT Treatment [facility] [address] [place] [phone] Micheal Savage, PT [address] [place] [address] [facility] Start: 10-05-2023 End: 10-05-2023 ambulatory 10/05/2023 1:30 PM EDT Treatment [facility] [address] [place] [phone] Micheal Savage, PT [address] [place] [address] [facility] Start: 10-04-2023 End: 10-04-2023 ambulatory 10/04/2023 5:30 PM EDT Treatment [facility] [address] [place] [phone] Micheal Savage, PT [address] [place] [address] Arrived [facility] Comment on above: Arrived Start: 09-10-2023 End: 09-10-2023 Patient encounter procedure 09/10/2023 10:30 AM EDT Office Visit General Surgery [address] [address] Brad Hanna MD [address] [place] [address] groin pain General Surgery Comment on above: groin pain Start: 08-15-2023 End: 08-15-2023 Patient encounter procedure 08/15/2023 1:35 PM EDT Appointment Radiology [address] [place] [address] [facility] Comment on above: NEW ORDER [employer]IN [facility] Start: 08-10-2023 End: 08-08-2024 US Pelvis limited [facility] Radiology Routine Left inguinal pain Expected: 08/10/2023, Expires: 08/08/2024 [facility] Work Phone: Comment on above: Expected: 08/10/2023 , Expires: 08/08/2024 Start: 02-12-2023 Behavioral Health Screening Behavioral Health Screening [facility] Start: 10-13-2022 Covid-19 Vaccine () Covid-19 Vaccine () [facility] Start: 2021 Diabetes Screening Diabetes Screenin g [facility] Start: 2021 Screening for malign ant neoplasm of colon [facility] Start: 12-09-2011 Lipid panel Lipid Screening [facility] Start: 12-09-1995 DTaP,Tdap and Td Vaccines (1 - Tdap) DTaP,Tdap and Td Vaccines (1 - Tdap) [facility] Start: 12-09-1995 Hepatitis B Vaccine (1 of 3 - 19+ 3-dose series) Hepatitis B Vaccine (1 of 3 - 19+ 3-dose series) [facility] Start: 12-09-1995 Urine microalbumin profile DTaP,Tdap,Td Vaccine (1 - Tdap) [facility] Start: 1994 Adult BMI Follow Up Plan Adult BMI Follow Up Plan [facility] Start: 1994 Anxiety Screening Anxiety Screening [facility] Start: 1994 Depression Screening Depression Scre ing [facility] Start: 1994 Hepatitis C screening Hepatitis C Sc reening [facility] Start: 1994 HIV screening HIV Screening [facility] Start: 1988 Depression Screening Depression Scre ing [facility] Start: 1988 Tobacco Screening Tobacco Screening [facility] Start: 1976 Screening for malign ant neoplasm of colon [facility] End: 08-09-2024 US Hip - left US HIP LEFT Radiology Routine Left inguinal pain 1 Occurrences starting 07/12/2023 until 08/09/2024 [facility] Work Phone: Comment on above: 1 Occurrences starti ng 07/12/2023 until 08/09/2024 Immunizations Immunization Date Immunization Notes Care Provider Donna hamm 12-12-2023 influenza, seasonal, injectable, preservative free Micheal Savage PT Work Phone: [facility] 12-12-2023 influenza virus vaccine, unspecified formulation Jeana Pierce MD Work Phone: [facility] Payers Date Payer Category Payer Unknown [id number] 2022 [employer] Managed Care - Other [id number] 2022 Blue Cross Blue Shield [id number] 2022 Private Health Insurance [id number] 2022 Unknown [id number] 2019 Unknown [id number] 1976 Unknown [id number] 2.16.840.1.855534.3.579.2.593 1976 Unknown [id number] 2.16.840.1.555477.3.579.2.593 1976 Unknown [id number] 2.16.840.1.151191.3.579.2.593 1976 Unknown [id number] 2.16.840.1.102921.3.579.2.593 1976 Unknown [id number] 2.16.840.1.413871.3.579.2.593 1976 Unknown [id number] 2.16.840.1.741757.3.579.2.1286 1976 Unknown [id number] 2.16.840.1.439051.3.579.2.1286 1976 Unknown [id number] 2.16.840.1.831845.3.579.2.1286 1976 Unknown [id number] 2.16.840.1.752451.3.579.2.1286 1976 Unknown [id number] 2.16.840.1.306704.3.579.2.1286 1976 Unknown [id number] 2.16.840.1.954318.3.579.2.1286 1976 Unknown [id number] 2.16.840.1.920144.3.579.2.1286 1976 Unknown [id number] 2.16.840.1.919888.3.579.2.1286 1976 Unknown [id number] 2.16.840.1.431133.3.579.2.1286 1976 Unknown [id number] 2.16.840.1.804663.3.579.2.1286 1976 Unknown [id number] 2.16.840.1.555159.3.579.2.1286 1976 Unknown [id number] 2.16.840.1.767097.3.579.2.1286 1959 Self-pay Unknown [place] BC/BS [id number] Unknown [id number] [id number] Social History Date Type Detail Facility Start: 07-10-2023 End: 01-24-2024 Sex Assigned At [employer] Other Start: 07-10-2023 End: 01-11-2024 Tobacco smoking status MTIS Never smoked tobacco [facility] Start: 11-22-2022 End: 07-10-2023 Tobacco use and exposure Smokeless tobacco non-user [facility] Start: 07-10-2023 End: 01-24-2024 History of Social function [facility] National Score (1-100), lower number is lower risk 75 [facility] Start: 1975 Sex Assigned At Not on file C [facility] Start: 11-22-2022 End: 01-24-2024 Alcoholic beverage intake Current drinker of alcohol (finding) [facility] Start: 1975 Sex assigned at Male N S [facility] Start: 11-21-2022 Gender identity Identifies as male gender (finding) [facility] Start: 11-21-2022 Sexual orientation Heterosexual (fin ding) [facility] Tobacco smoking status NHIS Tobacco smoking consumption unknown [facility] Work Phone: Start: 09-15-2014 Sex Male (finding) [facility] NEGATED: Highlighted rowStart: NINF History of tobacco use Passive smoker [facility] Clinical Notes 09-22-2022 to 08-25-2024 Jeana Pierce MD - 08/25/2024 12:55 PM Tal Savage, PT - 07/18/2024 7:30 AM Val Pierce MD - 07/01/2024 12:30 PM Tal Savage, PT - 07/01/2024 10:00 AM EDT Note Date & Type Note Facility 08-25-2024 History of Present illness Narrative [facility] [address] [place] [facility] [address] Name: Henrik Menjivar : 1975 Chief Complaint Patient presents with Left Hip - Follow-up Left hip scope 49/25 PT 2 times/week plus hep going well Subjective Henrik Menjivar is a 48 y.o. year old male who presents to the office today for recheck of his left hip. He underwent left hip arthroscopy with acetabular plasty, labrum debridement, femoral osteochondroplasty, loose body removal and capsular repair on 05/21/2024. He is attending physical therapy twice a week. Overall states he is doing well. He recently spent some time in [place] where he did a lot of walking, mild soreness in his anterior hip but no pain. Past Medical, Family, Surgical, and Social History, as well as Medications, Allergies, and Review of Systems were reviewed and can be seen in the patient's chart. Objective Body mass index is 29.19 kg/m . Henrik is alert and oriented, in no acute distress. He is able to do straight leg raise on the left. Passive hip flexion to 90 . No pain with gentle internal and external rotation. 5/5 hip flexor and abductor strength. Calf is soft and nontender. Physical therapy Progress notes reviewed operative report reviewed. Assessment 1. Femoroacetabular impingement of left hip Plan: ,I, JEANA PIERCE MD, personally performed the face to face evaluation on this patient. I discussed with the patient and confirmed the accuracy and completeness of the aforementioned history prepared by the [facility] provider, and I personally performed the clinical examination of the patient. I discussed the treatment plan with the patient. He is overall doing well with the hip on examination he has good passive range of motion good core strength at this phase postsurgically. He is going to hold off until 6 months postsurgically to start any high impact running. We discussed exercises to do in the meantime. I will plan on seeing him back as needed all questions answered.. documented in this encounter [facility] 07-18-2024 History of Present illness Narrative Images from the original note were not included. Physical Therapy Physical Therapy Treatment Visit Patient Name: Henrik Menjivar Today's Date: 07/18/2024 Encounter Diagnoses Name Primary? Left hip pain Yes 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 Visit number: 10 Sup time: 40 min Total time: 46 min Time in: 7:30 am Time out: 8:16 am Subjective Henrik Menjivar 48 y.o. male presents to physical therapy w/ chief c/o L hip pain. Mechanism of Onset: pain/issues for > a year, hx of known WILBER, had PT prior to SX but issues persisted. Now post surgical labral repair, capsular repair, femoral osteochondroplasty, acetabular rim trim on 05/21/24 Current deficits: pain, weakness, decreased ROM/flexibility, impaired gait and functional mobility Pain: pt reports some increased L hip pain/soreness last few days went to [place] for [facility] a lot of sitting and walk and long car ride, recovering over last couple days, better this a.m. 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 2 weeks: flex to 90, abd to 30. FFWBing only 20# 3 weeks: IR at 90 to 20 deg, ER at 90 to 30 deg, prone ER to 20 deg. Hip ext to 0 degrees Objective Gait amb in normal quality of gait Treatment Interventions Education: continue WBING progression as discussed Manual Therapy:x held today due to time constraints, headed to work after Therapeutic Exercise:x 40 min sup 45 total per DEREJE grid, ROM, flexibility, strength, endurance, advised on keeping ROM and stretches pain free. Added wt to leg press, added 1# to standing hip abd, march, ext. Added prone hip ext knee bent with 3# and mini squats. No issues reported Gait Training: prn Modalities: CP x declined Assessment/Plan L hip pain, decreased ROM/flexibility, strength, endurance causing impaired gait and functional mobility s/p L hip WILBER/labral repair on 05/21/24 Pt tolerated session well today. Progressed resistance and new DEREJE with good tolerance. Continue POC progressing as appropriate. Re-add MT PROM/stretching, massage as time allows. documented in this encounter [facility] 07-01-2024 History of Present illness Narrative [facility] [address] [facility] [id number] Name: Henrik Menjivar : 1975 Chief Complaint Patient presents with Left Hip - Post-op Left hip scope 05/21/24 PT 2 times/week going well Subjective: Henrik Menjivar is a 48 y.o. year old male who presents to the office today s/p left hip arthroscopy with acetabuloplasty with labrum debridement, femoral osteochondroplasty, loose body removal, capsular repair performed on 05/21/2024. Today, he states he is doing well postoperatively. He is engaging in physical therapy twice a week. He occasionally takes [id number] medication as needed. He is noticing improvements in symptoms overall. He rates his symptoms today 2/10. He denies any fever or chills. No chest pain or SOB. Past Medical, Family, Surgical, and Social History, as well as Medications, Allergies, and Review of Systems were reviewed and can be seen in the patient's chart. Objective: Body mass index is 29.19 kg/m . Henrik is alert and oriented x3, in no acute distress. On examination of the left hip, surgical incisions are well-healed. There is no erythema or signs of infection. Within normal limits range of motion of the hip with no pain. Intact hip abduction and adduction with 5/5 strength against resistance. He can perform a straight leg raise. Distal palpable pulses. Present sensation to light touch throughout lower extremity. Stable gait. Imaging: No imaging on today's visit. Assessment: 48 y.o. year old male s/p left hip arthroscopy with acetabuloplasty with labrum debridement, femoral osteochondroplasty, loose body removal, capsular repair performed on 05/21/2024. Plan: Patient was seen and examined on today's visit. Physical exam findings were reviewed with him. He is doing well postoperatively. We have no concerns for him today. He will continue with physical therapy as well as home exercise program. He will follow-up at his next scheduled visit. All questions were addressed and answered. [facility] History of Present illness Narrative Images from the original note were not included. Physical Therapy Physical Therapy Treatment Visit Patient Name: Henrik Menjivar Today's Date: 07/01/2024 Encounter Diagnoses Name Primary? Left hip pain Yes 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 Visit number: 7 Sup time: 45 min Total time: 62 min Time in: 10:00 am Time out: 11:02 am Subjective Henrik Menjivar 48 y.o. male presents to physical therapy w/ chief c/o L hip pain. Mechanism of Onset: pain/issues for > a year, hx of known WILBER, had PT prior to SX but issues persisted. Now post surgical labral repair, capsular repair, femoral osteochondroplasty, acetabular rim trim on 05/21/24 Current deficits: pain, weakness, decreased ROM/flexibility, impaired gait and functional mobility Pain: general soreness arriving after day of work. States ice takes away soreness from increased activity. Aware of limitations. Improved functional mobility and endurance, noticed he is able to climb stairs reciprocally, has to watch bending and low seats. 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 2 weeks: flex to 90, abd to 30. FFWBing only 20# 3 weeks: IR at 90 to 20 deg, ER at 90 to 30 deg, prone ER to 20 deg. Hip ext to 0 degrees Objective Enters with hip brace on, mendy crutches FFWBing very min, reports compliance to 20# only with good understanding. PROM: to 90 flex, abd to 30, IR to 10, ER to 20 pain free, ext N/A at this time L knee strength at least 3+/5 flex and ext no issues L hip strength not assessed at this time due to post-op status/protocol/precautions Pt able to lay on stomach and propped on elbows pain free no pulling noted. No s/s of infection or DVT noted, still has stitches in likely removed at RTD today. (At IE) Treatment Interventions Education: continue WBING progression as discussed Manual Therapy:x10 min PROM all planes, gentle stretching of HS, adductors, STM/massage ant hip down ant thigh and lateral hip/IT band with roller ball Therapeutic Exercise:x 35 min sup 40 total per DEREJE grid, ROM, flexibility, strength, endurance, advised on keeping ROM and stretches pain free. 5 min on bike warm up Added some reps, wt to leg press and prone planks today, no issues other than leg muscle fatigue no c/o pain. Also added LTRs and ADOLFO heel slides (tracing R ross/LE with Left ankle, combining hip flex with ER and Abd). Gait Training: prn Modalities: CP x 10 min end of session Assessment/Plan L hip pain, decreased ROM/flexibility, strength, endurance causing impaired gait and functional mobility s/p L hip WILBER/labral repair on 05/21/24 Pt tolerated all well today. No issues with new DEREJE/progression. A/PROM improving hip flex up to ~115 pain free today. Continue POC progressing as appropriate. Try lateral step ups next session and progressing clams to Green band SL alt sets with reverse clams with wt. Hold body wt squats for 1 more week per protocol. Pt progressing well, no concerns to date. documented in this encounter [facility] 06-27-2024 History of Present illness Narrative Images from the original note were not included. Physical Therapy Physical Therapy Treatment Visit Patient Name: Henrik Menjivar Today's Date: 06/27/2024 Encounter Diagnoses Name Primary? Left hip pain Yes 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 Visit number: 6 Sup time: 40 min Total time: 50 min Time in: 12:55 pm Time out: 1:45 pm Subjective Henrik Menjivar 48 y.o. male presents to physical therapy w/ chief c/o L hip pain. Mechanism of Onset: pain/issues for > a year, hx of known WILBER, had PT prior to SX but issues persisted. Now post surgical labral repair, capsular repair, femoral osteochondroplasty, acetabular rim trim on 05/21/24 Current deficits: pain, weakness, decreased ROM/flexibility, impaired gait and functional mobility Pain: general soreness arriving after day of work. States ice takes away soreness from increased activity. Aware of limitations. Improved functional mobility and endurance, noticed he is able to climb stairs reciprocally, has to watch bending and low seats. 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 2 weeks: flex to 90, abd to 30. FFWBing only 20# 3 weeks: IR at 90 to 20 deg, ER at 90 to 30 deg, prone ER to 20 deg. Hip ext to 0 degrees Objective Enters with hip brace on, mendy crutches FFWBing very min, reports compliance to 20# only with good understanding. PROM: to 90 flex, abd to 30, IR to 10, ER to 20 pain free, ext N/A at this time L knee strength at least 3+/5 flex and ext no issues L hip strength not assessed at this time due to post-op status/protocol/precautions Pt able to lay on stomach and propped on elbows pain free no pulling noted. No s/s of infection or DVT noted, still has stitches in likely removed at RTD today. (At IE) Treatment Interventions Education: continue WBING progression as discussed Manual Therapy:x10 min PROM all planes, gentle stretching of HS, adductors, STM/massage ant hip down ant thigh and lateral hip/IT band with roller ball Therapeutic Exercise:x 30 min sup 35 total per DEREJE grid, ROM, flexibility, strength, endurance, advised on keeping ROM and stretches pain free. 5 min on bike warm up Added step ups resistance to clams/reverse clams and IR/ER prone as well as leg press no issues. Gait Training: prn Modalities: CP x defer today will do at home Assessment/Plan L hip pain, decreased ROM/flexibility, strength, endurance causing impaired gait and functional mobility s/p L hip WILBER/labral repair on 05/21/24 Pt tolerated all well today, continued marches, abd, ext mendy hips. No issues with new DEREJE/progression. A/PROM improving hip flex up to ~115 pain free today. Continue POC progressing as appropriate, try mini squats next session. documented in this encounter [facility] 06-20-2024 History of Present illness Narrative Images from the original note were not included. Physical Therapy Physical Therapy Treatment Visit Patient Name: Henrik Menjivar Today's Date: 06/20/2024 Encounter Diagnoses Name Primary? 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 male presents to physical therapy w/ chief c/o L hip pain. Mechanism of Onset: pain/issues for > a year, hx of known WILBER, had PT prior to SX but issues persisted. Now post surgical labral repair, capsular repair, femoral osteochondroplasty, acetabular rim trim on 05/21/24 Current deficits: pain, weakness, decreased ROM/flexibility, impaired gait and functional mobility Pain: min ant hip area entering from working 1/2 day, transition off crutches has went well only min soreness/fatigue just has to watch pivoting on L hip and bending as expected. 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 2 weeks: flex to 90, abd to 30. FFWBing only 20# 3 weeks: IR at 90 to 20 deg, ER at 90 to 30 deg, prone ER to 20 deg. Hip ext to 0 degrees Objective Enters with hip brace on, mendy crutches FFWBing very min, reports compliance to 20# only with good understanding. PROM: to 90 flex, abd to 30, IR to 10, ER to 20 pain free, ext N/A at this time L knee strength at least 3+/5 flex and ext no issues L hip strength not assessed at this time due to post-op status/protocol/precautions Pt able to lay on stomach and propped on elbows pain free no pulling noted. No s/s of infection or DVT noted, still has stitches in likely removed at RTD today. (At IE) Treatment Interventions Education: continue WBING progression as discussed Manual Therapy:x 12 min PROM all planes, gentle stretching of HS, hip flexors, adductors, STM/massage ant hip down ant thigh and lateral hip/IT band mostly, hip flexors stretched in Sling the rest done supine. Therapeutic Exercise:x 30 min sup, 35 total per DEREJE grid, ROM, flexibility, strength, endurance, advised on keeping ROM and stretches pain free. Added wt to leg press , add iso to bridges, reverse clams within pain free ROM and increased some sets/reps, no issues. X5 min unsupervised bike, seat reclined. Gait Training: prn Modalities: CP x defer today will do at home Assessment/Plan L hip pain, decreased ROM/flexibility, strength, endurance causing impaired gait and functional mobility s/p L hip WILBER/labral repair on 05/21/24 Pt tolerated all well today, only soreness and fatigue, No pain with any intervention. Continue POC progressing as appropriate, try adding mendy standing exercises next session pending tolerance to SLS on L. Progressing well, no concerns. documented in this encounter [facility] 06-13-2024 History of Present illness Narrative Physical Therapy Physical Therapy Evaluation Visit Patient Name: Henrik Menjivar Today's Date: 06/13/2024 Encounter Diagnoses Name Primary? 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 male presents to physical therapy w/ chief c/o L hip pain. Mechanism of Onset: pain/issues for > a year, hx of known WILBER, had PT prior to SX but issues persisted. Now post surgical labral repair, capsular repair, femoral osteochondroplasty, acetabular rim trim on 05/21/24 Current deficits: pain, weakness, decreased ROM/flexibility, impaired gait and functional mobility Pain: min to nil entering just sore really worked all week, progressed to ~50% Wbing to date no exacerbation. Enters with mendy crutches using only 1 at times, has brace on. 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 2 weeks: flex to 90, abd to 30. FFWBing only 20# 3 weeks: IR at 90 to 20 deg, ER at 90 to 30 deg, prone ER to 20 deg. Hip ext to 0 degrees Objective Enters with hip brace on, mendy crutches FFWBing very min, reports compliance to 20# only with good understanding. PROM: to 90 flex, abd to 30, IR to 10, ER to 20 pain free, ext N/A at this time L knee strength at least 3+/5 flex and ext no issues L hip strength not assessed at this time due to post-op status/protocol/precautions Pt able to lay on stomach and propped on elbows pain free no pulling noted. No s/s of infection or DVT noted, still has stitches in likely removed at RTD today. (At IE) Treatment Interventions Education: continue WBING progression as discussed Manual Therapy: PROM in supine today x 10 min within precautions and pain free ROM, some difficulty relaxing but went well overall, add Sling and prone as appropriate. PROM flex just over 90, IR and ER progressing as well. Therapeutic Exercise: per DEREJE grid, ROM, flexibility, strength, endurance x 30 min sup, advised on keeping ROM and stretches pain free. Able to add gentle stretching into and moving into ext no issues and multiple other exercises per grid only c/o fatigue and soreness by end of session. Gait Training: prn, has progressed to ~50% WBING to date. Modalities: CP x 10 min end of session for pain/swelling/precaution Assessment/Plan L hip pain, decreased ROM/flexibility, strength, endurance causing impaired gait and functional mobility s/p L hip WILBER/labral repair on 05/21/24 Pt tolerated all well today, has progress to ~50% WBING mendy vs single crutch doing well. ROM progressing as expected, right on track with recovery to date even with RTW at 2 weeks and only 2 formal visits to date. Advised to add gentle hip flexor stretch and hip ext as well as marches to [facility] as long as they go as well as today. Continue POC progressing as appropriate. documented in this encounter [facility] 06-03-2024 History of Present illness Narrative [facility] [address] [facility] [id number] Name: Henrik Menjivar : 1975 Date of surgery: 05/21/2024 Chief Complaint Patient presents with Left Hip - Post-op Fp left hip scope 05/21/24 PT started today Subjective Henrik Menjivar is a 48 y.o. year old male who presents to the office today s/p left hip scope performed 05/21/2024. The patient had a debridement of the labrum as well as loose body removal. The patient states overall he is doing well 2 weeks postoperatively. He is mostly taking naproxen and Tylenol for pain. He is still using his crutches. He did start physical therapy today. He denies any fever or chills. No chest pain or SOB. Past Medical, Family, Surgical, and Social History, as well as Medications, Allergies, and Review of Systems were reviewed and can be seen in the patient's chart. Objective Body mass index is 29.19 kg/m . Henrik is alert and oriented, in no acute distress. On examination of the left hip, surgical incisions are well-healed. There is no erythema or signs of infection. Patient is able to perform a straight leg raise today. Patient is able to flex to 60 . Soft calf and negative Homans sign. He is ambulating with crutches. X-rays X-ray hip left 2-3 views with or without pelvis AP and lateral x-rays left hip reviewed stable appearing joint space no acute osseous abnormalities this is my independent interpretation. Assessment: 48 y.o. year old male s/p left hip scope performed 05/21/2024. . Plan: We did discuss treatment options with the patient today. Overall the patient is doing well 2 weeks postoperatively. He will continue physical therapy and we will check the patient back in 4 weeks for reassessment. documented in this encounter [facility] 06-03-2024 History of Present illness Narrative Images from the original note were not included. Physical Therapy Physical Therapy Evaluation Visit Patient Name: Henrik Menjivar Today's Date: 06/03/2024 Encounter Diagnoses Name Primary? 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 male presents to physical therapy w/ chief c/o L hip pain. Mechanism of Onset: pain/issues for > a year, hx of known WILBER, had PT prior to SX but issues persisted. 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 2 weeks: flex to 90, abd to 30. FFWBing only 20# 3 weeks: IR at 90 to 20 deg, ER at 90 to 30 deg, prone ER to 20 deg. Hip ext to 0 degrees Objective Enters with hip brace on, mendy crutches FFWBing very min, reports compliance to 20# only with good understanding. PROM: to 90 flex, abd to 30, IR to 10, ER to 20 pain free, ext N/A at this time L knee strength at least 3+/5 flex and ext no issues L hip strength not assessed at this time due to post-op status/protocol/precautions Pt able to lay on stomach and propped on elbows pain free no pulling noted. No s/s of infection or DVT noted, still has stitches in likely removed at RTD today. Treatment Interventions Education: HEP education with demonstration with handout and review, Educated on Eval Findings and POC, precautions/protocol and importance x 10 min self care/home maintenance Manual Therapy: PROM in supine today x 10 min within precautions and pain free ROM, some difficulty relaxing but went well overall, add Sling and prone as appropriate. Therapeutic Exercise: per DEREJE grid, ROM, flexibility, strength, endurance x 20 min sup, advised on limiting ROM with IR/ER, abd, flex today and keeping all pain free. Tolerated all well no c/o increased pain Gait Trainin# FFWBing only mendy crutches through 2 weeks per protocol and pending pt discussion with Dr later today at follow-up appt. Re-add PRN. Modalities: CP x 10 min end of session for pain/swelling/precaution Assessment/Plan L hip pain, decreased ROM/flexibility, strength, endurance causing impaired gait and functional mobility s/p L hip WILBER/labral repair on 05/21/24 Patient Goals Short Term Goal #1: pt will demo L hip AROM grossly WNL all planes pain free Short Term Goal #2: pt will demo normalized quality of gait non-antalgic without AD including reciprical patter up and down steps pain free Short Term Goal #3: pt will demo L hip strenght grossly greater than or equal to 4+/5 MMT all planes pain free Short Term Goal #4: pt will be cleared for all ADLs pending Dr approval and ind with HEP for maintenance/progression prn at DC from PT Pt will benefit from skilled PT to address the above impairments for 1-2x/week for 12-16 weeks per post SX protocol and pending pt needs/progress moving forward as well as Dr's orders. I hereby deem this POC medically necessary. Please sign below. Date: [facility] [facility] History of Present illness Narrative Chief complaint: Chief Complaint Patient presents with Left Hip - Pain, Follow-up Left hip scope scheduled for 05/21/24. Left hip pain History of present illness: the patient presents clinic today for follow-up evaluation of his left hip. 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 Reports continued left hip pain it is becoming more frequent and severe. Pain is localized to the groin. Pain with sitting standing twisting and pivoting. Interested in discussing surgery. This is tentatively plan a few weeks from now. Physical examination: On inspection of his gait pattern he has a nonantalgic gait he does have pain with combined flexion adduction internal rotation testing. 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 Tonus grade 1 this is my independent interpretation. Assessment/plan/medical decision making: Left hip pain. Femoral acetabular impingement labral tear I reviewed his clinical findings in detail today. We once again discussed risks benefits recovery process and rehabilitation of left hip arthroscopy labral repair femoral osteochondroplasty capsular repair in detail prognosis of nonsurgical treatment also discussed with her in detail after considering all options he would like to proceed with surgery all questions answered. documented in this encounter [facility] 01-23-2024 Miscellaneous Notes I spoke with the patient regarding the MRI of his left hip. This shows evidence of an anterior superior labral tear along with cam deformity of the femur findings consistent with femoral acetabular impingement. Some articular cartilage thinning but no evidence of advanced arthritis. He has been having left hip pain for more than 1 year and he has failed conservative treatment including activity modifications oral anti-inflammatory medicines rest and physical therapy. We discussed prognosis of continued conservative treatment in the form of a steroid injection and continued home exercises versus surgical intervention the form of left hip arthroscopy labral repair femoral osteochondroplasty capsular repair in detail. Risks benefits recovery process and rehabilitation of the surgery was discussed with him in detail prognosis of nonsurgical treatment also discussed with him in detail after considering all options he would like to proceed with surgical intervention. Prior to surgery I would like to obtain a CT scan with three-dimensional reconstructions of the left hip for surgical planning purposes. documented in this encounter [facility] 01-23-2024 Telephone encounter Note I spoke with the patient regarding the MRI of his left hip. This shows evidence of an anterior superior labral tear along with cam deformity of the femur findings consistent with femoral acetabular impingement. Some articular cartilage thinning but no evidence of advanced arthritis. He has been having left hip pain for more than 1 year and he has failed conservative treatment including activity modifications oral anti-inflammatory medicines rest and physical therapy. We discussed prognosis of continued conservative treatment in the form of a steroid injection and continued home exercises versus surgical intervention the form of left hip arthroscopy labral repair femoral osteochondroplasty capsular repair in detail. Risks benefits recovery process and rehabilitation of the surgery was discussed with him in detail prognosis of nonsurgical treatment also discussed with him in detail after considering all options he would like to proceed with surgical intervention. Prior to surgery I would like to obtain a CT scan with three-dimensional reconstructions of the left hip for surgical planning purposes. 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 male who presents to the office today for his left hip. Patient is a new patient to the practice. Patient has had pain in the left hip for 2-1/2 years. He denies any specific injury. 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 He had an MRI 2 years ago but it was not an arthrogram. He did do formal physical therapy for 10 sessions and he actually feels as though it is making it worse. He has not had any injections. He does take occasional Tylenol and ibuprofen. Patient did have a musculoskeletal ultrasound after he was sent to sports medicine for a possible core injury. Objective History: Patient was alert and oriented x3, no apparent distress. On a focused exam of the left hip he is able to do a straight leg raise on his own. I could take him up to 90 . He had significant pain with internal range of motion passively. He had a positive Adolfo's and Fader is test today. He did have pain with a logroll. No pain over the troch bursa today. No radicular symptoms noted. Strength is 5/5 with resisted abduction adduction. Soft calf negative Charles. Neurovascularly intact distally. Nonantalgic gait. XRAYS: X-ray hip left 2-3 views with or without pelvis AP, 45 degree Flowers lateral, and false profile x-rays of the left hip were obtained in the office today. 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 Tonus grade 1 no acute osseous abnormalities. Assessment: Henrik Menjivar is a 48 y.o. male left hip femoral acetabular impingement. Left hip pain. Conservative management concerned for labral tear Plan: I, JEANA PIERCE MD, personally performed the face to face evaluation on this patient. I discussed with the patient and confirmed the accuracy and completeness of the aforementioned history prepared by the [facility] provider, and I personally performed the clinical examination of the patient. I discussed the treatment plan with the patient. Reviewed his clinical findings in detail today on examination of his left hip he has severe pain with combined flexion adduction internal rotation testing pain with ADOLFO testing. Neurovascular intact distally with good core strength no tenderness at the pubis. He has been managed up to this point with activity modifications oral anti-inflammatory medicines injection and physical therapy. I am concerned for labral tear of his left hip I therefore like to obtain an MRI arthrogram of the left hip to evaluate for labral tear I will then call him with the results once it is completed all questions answered.. documented in this encounter [facility] 10-12-2023 History of Present illness Narrative Physical Therapy Physical Therapy Evaluation Visit Patient Name: Henrik Menjivar Today's Date: 10/12/2023 Encounter Diagnoses Name Primary? Right hip pain Yes Femoral acetabular impingement Visit number: 5 Sup time: 35 min Total time 40 min Time in: 1:30 pm Time out: 2:10 pm Subjective Henrik Menjivar 47 y.o. male presents to physical therapy w/ chief c/o R hip pain. Mechanism of Onset: no known GRETCHEN or cause Current deficits: pain, weakness, decreased ROM Pain: mild amb into session, mostly just sore, mod at times, more in ant hip/hip flexor area than medial/groin again today has noticed more issues walking longer distances and trying to work out a well as sitting and turning over fixed leg. 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 Precautions: WILBER Objective + FADIR + active SLR test PROM L hip flex to 100 ERP L hip strength grossly 4/5 MMT pain with flex > other planes Min decreased hip ADD flexibility, mod decreased hip flexor flexibility. Min TTP ant hip just medial to hip flexor tendon, worse more medial around inguinal canal area Treatment Interventions Manual Therapy: MET for L ant innominate rotation not needed, pelvis level and leg length equal. STM/massage ant hip x 10 min good tolerance Therapeutic Exercise: per DEREJE grid, ROM, flexibility, strength x 25 min sup with min verbal cues Therapeutic Activity: Exercises to improve dynamic activities, functional tasks, functional mobility to return to prior activity level Modalities: CP declined Assessment/Plan R hip pain, decreased ROM, strength causing increased difficulty with ADLs/self care, decreased QOL Tolerated all well min increased soreness with DEREJE no issues with STM/massage, still have Concerns of potential labral tear due to WILBER. documented in this encounter [facility] 10-11-2023 History of Present illness Narrative Physical Therapy Physical Therapy Evaluation Visit Patient Name: Henrik Menjivar Today's Date: 10/11/2023 Encounter Diagnoses Name Primary? Right hip pain Yes Femoral acetabular impingement Visit number: 5 Sup time: 25 min Total time 30 min Time in: 5:00 pm Time out: 5:30 pm Subjective Henrik Menjivar 47 y.o. male presents to physical therapy w/ chief c/o R hip pain. Mechanism of Onset: no known GRETCHEN or cause Current deficits: pain, weakness, decreased ROM Pain: mild amb into session, mod at times, more in ant hip/hip flexor area than medial/groin again today has noticed more issues walking longer distances and trying to work out a well as sitting and turning over fixed leg. 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 Precautions: WILBER Objective + FADIR + active SLR test PROM L hip flex to 100 ERP L hip strength grossly 4/5 MMT pain with flex > other planes Min decreased hip ADD flexibility, mod decreased hip flexor flexibility. Min TTP ant hip just medial to hip flexor tendon, worse more medial around inguinal canal area Treatment Interventions Manual Therapy: MET for L ant innominate rotation not needed, pelvis level and leg length equal. STM/massage ant hip x 5 min good tolerance Therapeutic Exercise: per DEREJE grid, ROM, flexibility, strength x 25 min sup with min verbal cues Therapeutic Activity: Exercises to improve dynamic activities, functional tasks, functional mobility to return to prior activity level Modalities: CP declined to get to Diversion game Assessment/Plan R hip pain, decreased ROM, strength causing increased difficulty with ADLs/self care, decreased QOL Tolerated all well min increased soreness with DEREJE no issues with STM/massage, still have Concerns of potential labral tear due to WILBER. documented in this encounter [facility] 10-05-2023 History of Present illness Narrative Physical Therapy Physical Therapy Evaluation Visit Patient Name: Henrik Menjivar Today's Date: 10/05/2023 Encounter Diagnoses Name Primary? Right hip pain Yes Femoral acetabular impingement Visit number: 4 Sup time: 38 min Total time 50 min Time in: 1:30 pm Time out: 2:20 pm Subjective Henrik Menjivar 47 y.o. male presents to physical therapy w/ chief c/o R hip pain. Mechanism of Onset: no known GRETCHEN or cause Current deficits: pain, weakness, decreased ROM Pain: mild amb into session, mod at times, more in ant hip/hip flexor area than medial/groin again today has noticed more issues walking longer distances and trying to work out a well as sitting. 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 Precautions: WILBER Objective + FADIR + active SLR test PROM L hip flex to 100 ERP L hip strength grossly 4/5 MMT pain with flex > other planes Min decreased hip ADD flexibility, mod decreased hip flexor flexibility. Min TTP ant hip just medial to hip flexor tendon, worse more medial around inguinal canal area Treatment Interventions Manual Therapy: MET for L ant innominate rotation not needed, pelvis level and leg length equal. STM/massage ant and lateral hip with use of massage roller ball x 10 min good tolerance Therapeutic Exercise: per DEREJE grid, ROM, flexibility, strength x 28 min sup with min progression Therapeutic Activity: Exercises to improve dynamic activities, functional tasks, functional mobility to return to prior activity level Modalities: CP x 10 min Assessment/Plan R hip pain, decreased ROM, strength causing increased difficulty with ADLs/self care, decreased QOL Tolerated all well min increased soreness with DEREJE no issues with STM/massage, still have Concerns of potential labral tear due to WILBER. documented in this encounter [facility] 10-04-2023 History of Present illness Narrative Physical Therapy Physical Therapy Evaluation Visit Patient Name: Henrik Menjivar Today's Date: 10/04/2023 Encounter Diagnoses Name Primary? Right hip pain Yes Femoral acetabular impingement Visit number: 3 Sup time: 30 min Total time 35 min Time in: 4:30 pm Time out: 5:05 pm Subjective Henrik Menjivar 47 y.o. male presents to physical therapy w/ chief c/o R hip pain. Mechanism of Onset: no known GRETCHEN or cause Current deficits: pain, weakness, decreased ROM Pain: mild amb into session, mod at times, more in ant hip/hip flexor area than medial/groin again today has noticed more issues walking longer distances and trying to work out. 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 Precautions: WILBER Objective + FADIR + active SLR test PROM L hip flex to 100 ERP L hip strength grossly 4/5 MMT pain with flex > other planes Min decreased hip ADD flexibility, mod decreased hip flexor flexibility. Min TTP ant hip just medial to hip flexor tendon, worse more medial around inguinal canal area Treatment Interventions Manual Therapy: MET for L ant innominate rotation x 5 min fully corrected, re-add PROM and LA mobs next session Therapeutic Exercise: per DEREJE grid, ROM, flexibility, strength x 25 min sup with min progression Therapeutic Activity: Exercises to improve dynamic activities, functional tasks, functional mobility to return to prior activity level Modalities: CP, declined today will ice at home, add ESU prn. Assessment/Plan R hip pain, decreased ROM, strength causing increased difficulty with ADLs/self care, decreased QOL Tolerated all well min increased soreness with DEREJE, pelvis level and leg length = leaving, declined CP to get to Diversion game will ice at home. Concerns of potential labral tear due to WILBER. documented in this encounter [facility] 09-10-2023 Note HNO ID: [id number] Author: BRAD HANNA MD Service: ? Author Type: Physician Type: Progress Notes Filed: 09/14/2023 14:54 Note Text: [facility] - HISTORY AND PHYSICAL Chief Complaint: Groin Pain HPI: Henrik Menjivar is a 47 year old male with PMHx of BPH who presents as referral from Dr. Ann for evaluation of chronic left groin pain, beginning 2 years ago. He denies preceding trauma to area and denies bulging to area. He was previously seen by PCP who ordered CT A/P and MRI Pelvis, which were without acute abnormalities. He tried 6 weeks of PT at the time and found no relief. Denies seeing an orthopedist in the past. The pain radiates to left lower abdomen occasionally and worsens with core movement and prolonged walking or jogging. 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 No pertinent past medical history. History reviewed. No pertinent surgical history. Social History Tobacco Use Smoking status: Never Smokeless tobacco: Never Additional social history not relevant to the patient's HPI History reviewed. No pertinent family history. Additional family history not relevant to the patient's HPI ALLERGIES No Known Allergies Current Outpatient Medications Medication Sig Dispense Refill montelukast (SINGULAIR) 10 mg tablet Take by mouth every 24 hours. tamsulosin (FLOMAX) 0.4 mg cetirizine (ZYRTEC) 10 mg tablet No current facility-administered medications for this visit. REVIEW OF SYSTEMS The remainder of the 12 review of systems is negative other than what was mentioned in the HPI and above. BP 140/85 Pulse 75 Temp 36.8 ?C (98.3 ?F) (Temporal) Ht 172.7 cm (5' 8 ) Wt 85.3 kg (188 lb) BMI 28.59 kg/m? Physical findings of this patient are as follows (COMPLETE 10 INCLUDING HEART AND LUNG EXAM OR CHOOSE NORMAL EXAM IF APPROPRIATE): Physical Exam Physical Exam Constitutional: The patient is well-developed, well-nourished, and in no distress. Head: Normocephalic and atraumatic. Eyes: Pupils are equal, round, and reactive to light. EOM are normal. Neck: Normal range of motion. Neck supple. Cardiovascular: Regular rhythm and normal heart sounds. Pulmonary/Chest: Effort normal and breath sounds normal. Abdominal: Soft. Bowel sounds are normal. Musculoskeletal: Normal range of motion. Neurological: He is alert. GCS score is 15. Skin: Skin is warm and dry. Psychiatric: Affect and judgment normal. Relevant Hernia Findings - no bulge to area, SLR positive, tenderness at pubis, nontender to inguinal opening LABS: No results found for: HBA1C IMAGING - Reviewed with staff CT - 12/16/21 - no inguinal hernia found US - 08/15/23 [id number] tendinosis adductor origin without tear or hyperemia. Synovial thickening of the anterior hip joint with mild hyperemia. Assessment: Henrik Menjivar is a 47 year old male who presents with chronic left groin pain. Plan: - trial of PT for adductor tendinosis and anterior hip joint thickening Patient will follow up after PT for further discussion of treatment options. All questions and concerns were answered by end of visit. Attending Note I evaluated the patient and personally participated in the du components. I agree with the resident's findings and plan as documented and have discussed the case and management of the patient's care with the resident. Signature: BRAD HANNA MD [facility] 09-10-2023 History of Present illness Narrative [facility] - HISTORY AND PHYSICAL Chief Complaint: Groin Pain HPI: Henrik Menjivar is a 47 year old male with PMHx of BPH who presents as referral from Dr. Ann for evaluation of chronic left groin pain, beginning 2 years ago. He denies preceding trauma to area and denies bulging to area. He was previously seen by PCP who ordered CT A/P and MRI Pelvis, which were without acute abnormalities. He tried 6 weeks of PT at the time and found no relief. Denies seeing an orthopedist in the past. The pain radiates to left lower abdomen occasionally and worsens with core movement and prolonged walking or jogging. 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 No pertinent past medical history. History reviewed. No pertinent surgical history. Social History Tobacco Use Smoking status: Never Smokeless tobacco: Never Additional social history not relevant to the patient's HPI History reviewed. No pertinent family history. Additional family history not relevant to the patient's HPI ALLERGIES No Known Allergies Current Outpatient Medications Medication Sig Dispense Refill montelukast (SINGULAIR) 10 mg tablet Take by mouth every 24 hours. tamsulosin (FLOMAX) 0.4 mg cetirizine (ZYRTEC) 10 mg tablet No current facility-administered medications for this visit. REVIEW OF SYSTEMS The remainder of the 12 review of systems is negative other than what was mentioned in the HPI and above. BP 140/85 Pulse 75 Temp 36.8 C (98.3 F) (Temporal) Ht 172.7 cm (5' 8 ) Wt 85.3 kg (188 lb) BMI 28.59 kg/m Physical findings of this patient are as follows (COMPLETE 10 INCLUDING HEART AND LUNG EXAM OR CHOOSE NORMAL EXAM IF APPROPRIATE): Physical Exam Physical Exam Constitutional: The patient is well-developed, well-nourished, and in no distress. Head: Normocephalic and atraumatic. Eyes: Pupils are equal, round, and reactive to light. EOM are normal. Neck: Normal range of motion. Neck supple. Cardiovascular: Regular rhythm and normal heart sounds. Pulmonary/Chest: Effort normal and breath sounds normal. Abdominal: Soft. Bowel sounds are normal. Musculoskeletal: Normal range of motion. Neurological: He is alert. GCS score is 15. Skin: Skin is warm and dry. Psychiatric: Affect and judgment normal. Relevant Hernia Findings - no bulge to area, SLR positive, tenderness at pubis, nontender to inguinal opening LABS: No results found for: HBA1C IMAGING - Reviewed with staff CT - 12/16/21 - no inguinal hernia found US - 08/15/23 [id number] tendinosis adductor origin without tear or hyperemia. Synovial thickening of the anterior hip joint with mild hyperemia. Assessment: Henrik Menjivar is a 47 year old male who presents with chronic left groin pain. Plan: - trial of PT for adductor tendinosis and anterior hip joint thickening Patient will follow up after PT for further discussion of treatment options. All questions and concerns were answered by end of visit. Attending Note I evaluated the patient and personally participated in the du components. I agree with the resident's findings and plan as documented and have discussed the case and management of the patient's care with the resident. Signature: BRAD HANNA MD documented in this encounter [facility] 09-10-2023 Nurse Note What is the reason for your visit today? Consult Who is your referring physician? None Are you having poor oral intake? NO Have you had unintentional weight loss of 15 lbs/7 Kg in the last 3-6 months? NO Bowels: regular Wound: None Temperature: No Drains: No [facility] 09-10-2023 Nurse Note What is the reason for your visit today? Consult Who is your referring physician? None Are you having poor oral intake? NO Have you had unintentional weight loss of 15 lbs/7 Kg in the last 3-6 months? NO Bowels: regular Wound: None Temperature: No Drains: No documented in this encounter [facility] 07-11-2023 Telephone encounter Note Patient has been scheduled for their [facility] US exam on 08/15/23 : 1:35 PM at [facility]. [facility] 07-11-2023 Miscellaneous Notes Patient has been scheduled for their [facility] US exam on 08/15/23 : 1:35 PM at [facility]. Called patient on July 11, 2023 at 11:07 AM to schedule their MSK US exam. No answer, left VM, 1st attempt. Left VM stating [facility] US department will call back. Visit Type: ANY MSK Visit Length: 45, 50 OR 60 MINUTES Order Name/Protocol: US HIP LEFT - MEDIAL; CONCERN FOR ATHLETIC PUBALGIA/SPORTS HERNIA Preferred Provider: N/A Comment: Please ask if the patient has ever had any prior surgery to their LT GROIN. If so, upgrade the visit type to an MSK1 and notate the surgical hx in the Appointment Note. Do not link order for US PELVIS LTD. Correct order has been routed. Location: Depending on the surgical hx, this patient can have this exam performed at any of our three locations. Slot held: N/A documented in this encounter [facility] 07-11-2023 Telephone encounter Note Called patient on July 11, 2023 at 11:07 AM to schedule their MSK US exam. No answer, left VM, 1st attempt. Left VM stating [facility] US department will call back. [facility] 07-11-2023 Telephone encounter Note Visit Type: ANY [facility] Visit Length: 45, 50 OR 60 MINUTES Order Name/Protocol: US HIP LEFT - MEDIAL; CONCERN FOR ATHLETIC PUBALGIA/SPORTS HERNIA Preferred Provider: N/A Comment: Please ask if the patient has ever had any prior surgery to their LT GROIN. If so, upgrade the visit type to an MSK1 and notate the surgical hx in the Appointment Note. Do not link order for US PELVIS LTD. Correct order has been routed. Location: Depending on the surgical hx, this patient can have this exam performed at any of our three locations. Slot held: N/A [facility] 07-10-2023 Note HNO ID: [id number] Author: LUTHER ANN MD Service: ? Author Type: Physician Type: Progress Notes Filed: 07/10/2023 11:12 Note Text: Consultation requested by Dr. Dionisio Callejas for an opinion regarding left groin pain. My final recommendations will be communicated back to the requesting physician by way of shared medical record or letter via US mail. Henrik Menjivar is a 47 year old male who presents with left groin pain for two years. No inciting event that he remembers. A CT and MRI were normal. He has not noticed a bulge. He did physical therapy for about a year with little improvement. 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 The pain improves with rest. He does not have a hernia on exam. 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 But given my uncertainty around this diagnosis of athletic pubalgia/sports hernia, I would like his to see my partner, Brad Hanna. We will order a groin US and set him up to see Dr. Hanna. I have seen and evaluated the patient and discussed the case with the resident physician. I agree with the assessment and plan as documented in the resident?s note including a ROS that was reviewed and negative other than what was indicated in our notes. Patient consented for study? Not applicable [facility] 07-10-2023 History of Present illness Narrative Consultation requested by Dr. Dionisio Callejas for an opinion regarding left groin pain. My final recommendations will be communicated back to the requesting physician by way of shared medical record or letter via US mail. Henrik Menjivar is a 47 year old male who presents with left groin pain for two years. No inciting event that he remembers. A CT and MRI were normal. He has not noticed a bulge. He did physical therapy for about a year with little improvement. 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 The pain improves with rest. He does not have a hernia on exam. 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 But given my uncertainty around this diagnosis of athletic pubalgia/sports hernia, I would like his to see my partner, Brad Hanna. We will order a groin US and set him up to see Dr. Hanna. I have seen and evaluated the patient and discussed the case with the resident physician. I agree with the assessment and plan as documented in the resident s note including a ROS that was reviewed and negative other than what was indicated in our notes. Patient consented for study? Not applicable documented in this encounter [facility] 07-10-2023 History and physical note [facility] - HISTORY AND PHYSICAL Chief Complaint: Chronic left groin pain HPI: Henrik Menjivar is a 47 year old male with PMHx of BPH who presents for evaluation of chronic left groin pain. The patient states over the past x2 years he has experienced chronic left inguinal pain. 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 He reports evaluation by his PCP shortly after onset at which time he underwent both CT A/P and MRI pelvis which were without acute abnormality. He also attended physical therapy for a brief time (last appointment being approximately x1 year ago) but felt his pain was worsened by therapy which caused him to stop. At present, he reports constant dull pain at baseline with x2/10 severity which is localized to the external inguinal ring. He confirms intermittent radiation to the left lower abdomen. He notes this pain is reproducible with palpation and also worsened with compression shorts. He has had to stop running due to his discomfort but otherwise has been able to maintain his activity. He reports intermittent use of ibuprofen for pain management. He presents today for evaluation given ongoing pain refractory to conservative measures. He specifically raises concern for having a sports hernia. He denies prior abdominal or pelvic surgical history. 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 No past surgical history on file. Social History Tobacco Use Smoking status: Never Smokeless tobacco: Never Additional social history not relevant to the patient's HPI No family history on file. Additional family history not relevant to the patient's HPI ALLERGIES Not on File Current Outpatient Medications Medication Sig Dispense Refill montelukast (SINGULAIR) 10 mg tablet Take by mouth every 24 hours. tamsulosin (FLOMAX) 0.4 mg cetirizine (ZYRTEC) 10 mg tablet No current facility-administered medications for this visit. REVIEW OF SYSTEMS The remainder of the 12 review of systems is negative other than what was mentioned in the HPI and above. BP 142/82 Pulse 84 Temp 36.4 C (97.6 F) (Temporal) Ht 172.7 cm (5' 8 ) Wt 83 kg (183 lb) BMI 27.83 kg/m Physical findings of this patient are as follows (COMPLETE 10 INCLUDING HEART AND LUNG EXAM OR CHOOSE NORMAL EXAM IF APPROPRIATE): Physical Exam Physical Exam Constitutional: The patient is well-developed, well-nourished, and in no distress. Head: Normocephalic and atraumatic. Eyes: Pupils are equal, round, and reactive to light. EOM are normal. Neck: Normal range of motion. Neck supple. Cardiovascular: Regular rhythm and normal heart sounds. Pulmonary/Chest: Effort normal and breath sounds normal. Abdominal: Soft. Bowel sounds are normal. Musculoskeletal: Normal range of motion. Neurological: He is alert. GCS score is 15. Skin: Skin is warm and dry. Psychiatric: Affect and judgment normal. Relevant Hernia Findings - Tenderness to palpation of left external inguinal ring. No evidence of inguinal hernia. No overlying skin changes. LABS: No results found for: HBA1C IMAGING - Reviewed with staff CT - 06/17/21 No evidence of inguinal hernia Assessment: Henrik Menjivar is a 47 year old male with PMHx of BPH who presents for evaluation of chronic left groin pain. On exam, there is no evidence of left inguinal hernia as underlying source of pain. Discussed possible etiologies of chronic pain, including athletic pubalgia, and encouraged ongoing conservative management. Will order groin US for further evaluation and refer patient to see Dr. Hanna for additional recommendations regarding management. Plan: - Obtain pelvic US for evaluation of left inguinal region - Refer patient to Dr. Hanna for evaluation and further recommendations regarding chronic pain management Plan of care discussed with staff, Dr. Ann. Filomena Arreola MD General Surgery Resident, PGY-1 07/10/2023 10:23 AM [facility] 07-10-2023 History and physical note [facility] Abdominal [facility] - HISTORY AND PHYSICAL Chief Complaint: Chronic left groin pain HPI: Henrik Menjivar is a 47 year old male with PMHx of BPH who presents for evaluation of chronic left groin pain. The patient states over the past x2 years he has experienced chronic left inguinal pain. 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 He reports evaluation by his PCP shortly after onset at which time he underwent both CT A/P and MRI pelvis which were without acute abnormality. He also attended physical therapy for a brief time (last appointment being approximately x1 year ago) but felt his pain was worsened by therapy which caused him to stop. At present, he reports constant dull pain at baseline with x2/10 severity which is localized to the external inguinal ring. He confirms intermittent radiation to the left lower abdomen. He notes this pain is reproducible with palpation and also worsened with compression shorts. He has had to stop running due to his discomfort but otherwise has been able to maintain his activity. He reports intermittent use of ibuprofen for pain management. He presents today for evaluation given ongoing pain refractory to conservative measures. He specifically raises concern for having a sports hernia. He denies prior abdominal or pelvic surgical history. 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 No past surgical history on file. Social History Tobacco Use Smoking status: Never Smokeless tobacco: Never Additional social history not relevant to the patient's HPI No family history on file. Additional family history not relevant to the patient's HPI ALLERGIES Not on File Current Outpatient Medications Medication Sig Dispense Refill montelukast (SINGULAIR) 10 mg tablet Take by mouth every 24 hours. tamsulosin (FLOMAX) 0.4 mg cetirizine (ZYRTEC) 10 mg tablet No current facility-administered medications for this visit. REVIEW OF SYSTEMS The remainder of the 12 review of systems is negative other than what was mentioned in the HPI and above. BP 142/82 Pulse 84 Temp 36.4 C (97.6 F) (Temporal) Ht 172.7 cm (5' 8 ) Wt 83 kg (183 lb) BMI 27.83 kg/m Physical findings of this patient are as follows (COMPLETE 10 INCLUDING HEART AND LUNG EXAM OR CHOOSE NORMAL EXAM IF APPROPRIATE): Physical Exam Physical Exam Constitutional: The patient is well-developed, well-nourished, and in no distress. Head: Normocephalic and atraumatic. Eyes: Pupils are equal, round, and reactive to light. EOM are normal. Neck: Normal range of motion. Neck supple. Cardiovascular: Regular rhythm and normal heart sounds. Pulmonary/Chest: Effort normal and breath sounds normal. Abdominal: Soft. Bowel sounds are normal. Musculoskeletal: Normal range of motion. Neurological: He is alert. GCS score is 15. Skin: Skin is warm and dry. Psychiatric: Affect and judgment normal. Relevant Hernia Findings - Tenderness to palpation of left external inguinal ring. No evidence of inguinal hernia. No overlying skin changes. LABS: No results found for: HBA1C IMAGING - Reviewed with staff CT - 06/17/21 No evidence of inguinal hernia Assessment: Henrik Menjivar is a 47 year old male with PMHx of BPH who presents for evaluation of chronic left groin pain. On exam, there is no evidence of left inguinal hernia as underlying source of pain. Discussed possible etiologies of chronic pain, including athletic pubalgia, and encouraged ongoing conservative management. Will order groin US for further evaluation and refer patient to see Dr. Hanna for additional recommendations regarding management. Plan: - Obtain pelvic US for evaluation of left inguinal region - Refer patient to Dr. Hanna for evaluation and further recommendations regarding chronic pain management Plan of care discussed with staff, Dr. Ann. Filomena Arreola MD General Surgery Resident, PGY-1 07/10/2023 10:23 AM documented in this encounter [facility] 07-10-2023 Nurse Note What is the reason for your visit today? Consult Who is your referring physician? Dr. Ann Are you having poor oral intake? NO Have you had unintentional weight loss of 15 lbs/7 Kg in the last 3-6 months? NO Bowels: regular Wound: clean & dry Temperature: No Drains: No [facility] 07-10-2023 Nurse Note What is the reason for your visit today? Consult Who is your referring physician? Dr. Ann Are you having poor oral intake? NO Have you had unintentional weight loss of 15 lbs/7 Kg in the last 3-6 months? NO Bowels: regular Wound: clean & dry Temperature: No Drains: No documented in this encounter [facility] 09-25-2022 Evaluation note Encounter Date Diagnosis Assessment Notes Sep, Wellness examination (ICD-10 - Z00.00) [employer] Other 08-11-2023 Evaluation note* Encounter Date Diagnosis Assessment Notes Treatment Notes Treatment Clinical Notes Sep, Wellness examination (ICD-10 - Z00.00) Healthy diet and exercise. Reviewed age-appropriate preventive testing recommended. Sep, Benign prostatic hyperplasia with lower urinary tract symptoms (ICD-10 - N40.1) Father w/ prostate cancer. Symptoms of BPH w/ hesitancy, weakened stream and nocturia. He denies dysuria or hematuria Initiate Flomax Sep, Hesitancy of micturition (ICD-10 - R39.11) Sep, Sports hernia, subsequent encounter (ICD-10 - S39.81XD) Interferes w/ exercise but otherwise tolerable. Subtle findings on MRI. If intolerable, refer to sports medicine/Orthopedi cs Sep, Screening PSA (prostate specific antigen) (ICD-10 - Z12.5) Sep, Screening for colon cancer (ICD-10 - Z12.11) Asymptomatic, low risk patient. Refer for screening colonoscopy [facility] [employer] Other [facility]No [facility] [employer] Other Evaluation note* Diagnosis Left inguinal pain- Primary Abdominal pain, left lower quadrant [facility] encounter [facility] Diagnosis Left inguinal pain- Primary Abdominal pain, left lower quadrant [facility] this encounter [facility] Diagnosis Left inguinal pain Abdominal pain, left lower quadrant [facility] Diagnosis Pain in left hip- Primary Pain in joint, pelvic region and thigh [facility] Diagnosis Right hip pain- Primary Pain in joint, pelvic region and thigh Femoral acetabular impingement documented in this encounter [facility]* Diagnosis Right hip pain- Primary Pain in joint, pelvic region and thigh Femoral acetabular impingement documented in this encounter [facility]* Diagnosis Right hip pain- Primary Pain in joint, pelvic region and thigh Femoral acetabular impingement documented in this encounter [facility] HealthcareEvaluation note* Diagnosis Right hip pain- Primary Pain in joint, pelvic region and thigh Femoral acetabular impingement documented in this encounter [facility]Evaluation note* Diagnosis Right hip pain- Primary Pain in joint, pelvic region and thigh Femoral acetabular impingement documented in this encounter [facility] note* Diagnosis Right hip pain- Primary Pain in joint, pelvic region and thigh Femoral acetabular impingement documented in this encounter [facility] note* Diagnosis Right hip pain- Primary Pain in joint, pelvic region and thigh Femoral acetabular impingement documented in this encounter [facility]* Diagnosis Right hip pain- Primary Pain in joint, pelvic region and thigh Femoral acetabular impingement documented in this encounter [facility]* Diagnosis Femoroacetabular impingement of left hip- Primary Left hip pain Pain in joint, pelvic region and thigh Femoral acetabular impingement Pain of left hip Left hip pain Pain in joint, pelvic region and thigh documented in this encounter [facility]* Diagnosis 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- Primary 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 documented in this encounter [facility]* Diagnosis 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- Primary 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 documented in this encounter [facility]* Diagnosis Femoroacetabular impingement of left hip- Primary 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 documented in this encounter [facility]* Diagnosis Left hip pain- Primary Pain in joint, pelvic region and thigh 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 documented in this encounter [facility]Evaluation note* Diagnosis Left hip pain- Primary Pain in joint, pelvic region and thigh Left hip pain Pain in joint, pelvic region and thigh documented in this encounter [facility]* Diagnosis Left hip pain- Primary Pain in joint, pelvic region and thigh 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 documented in this encounter [facility] HealthcareEvaluation note* Diagnosis Left hip pain- Primary Pain in joint, pelvic region and thigh 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 documented in this encounter [facility]Evaluation note* Diagnosis Left hip pain- Primary Pain in joint, pelvic region and thigh 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 documented in this encounter [facility]* Diagnosis Left hip pain- Primary Pain in joint, pelvic region and thigh 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 documented in this encounter [facility]* Diagnosis Left hip pain- Primary Pain in joint, pelvic region and thigh 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 documented in this encounter [facility] note* Diagnosis Postoperative visit- Primary documented in this encounter [facility]* Diagnosis Left hip pain- Primary Pain in joint, pelvic region and thigh 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 documented in this encounter [facility] Healthcare[facility] note* Diagnosis Femoroacetabular impingement of left hip- Primary documented in this encounter [facility]* Diagnosis Left hip pain- Primary Pain in joint, pelvic region and thigh 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 documented in this encounter [facility] HealthcareEvaluation noteNo assessment information availableOhio[facility] Work Phone: History general Narrative - Reported* Type Description Date Medical History Allergic rhinitis due to pollen Medical History Gastro-esophageal reflux disease without esophagitis Medical History Benign prostatic hyperplasia wit h lower urinary tract symptoms Medical History Asthmatic bronchitis, mild inter mittent, uncomplicated [employer] Other InstructionsNot on filedocumented in this encounter [facility] SystemInstructionsNot on filedocumented in this encounter [facility] SystemInstructionsNot on filedocumented in this encounter [facility] SystemInstructions* Pre-Procedure Instructions - Rosalva Westbrook RN - 05/07/2024 9:30 AM EDT Your surgery/procedure is scheduled at [facility] on 05/21/2024 at 1145 am Tentative arrival time 915 am per surgeon instructions You will receive a phone call from [facility] the day beforeyour surgery to verify your arrival time. [address] [place] [address]. Natasha in Entrance D. Report to the registration desk in the main lobby. If you have any questions prior to surgery, you may call Pre-Admission Clinic at [phone] between 7:30 am and 4:30 pm Sunday through Sunday. If you have any concerns the morning of surgery, please call the Pre-op Department at [phone]. Notify your SURGEON if you develop any illness such as a cold, cough, fever, sore throat, vomiting or are hospitalized between now and your surgery. Medication Instructions (Do not stop your medications without consulting the prescribing physician). Take the following medications the morning of surgery with a sip of water: Tylenol if needed Diabetic or Weight loss medications: HOLD NA LAST DOSE NA Take inhalers as prescribed the morning of surgery. Due to the risk associated with these medications. If these medications are not held per instruction below, your surgery is at an increased risk for cancellation (See instructions above). SGLT2 Medications- Hold 3 days prior to surgery: Jardiance, Empagliflozin, Farxiga, Dapagliflozin, Invokana, Canagliflozin, Trijardy, Synjardy GLP-1 Medications (Injection or Pill)- If taken daily hold day of surgery. If taken weekly, hold 1 week prior to surgery: Adlyxin, Byetta, Bydureon, Ozempic, Rybelsus,Trulicity, Victoza, Wegovy, Lixisenatide, Exenatide, Semaglutide, Dulaglutide, Liraglutide GIP/GLP-1(Injection or Pill)- If taken daily hold day of surgery. If taken weekly, hold 1 week prior to surgery: Drakeunkarinaro . Blood thinners: Please contact your prescribing physician regarding a stop/hold date for these medications. Medications such as Coumadin, Heparin, Aspirin, Plavix, Eliquis, Pradaxa Diabetics: If you take insulin, contact your prescribing doctor for instructions on how to manage this the night before and the morning of surgery. Non-steriodal Anti-Inflammatory Drugs (NSAIDS)- Hold 3 days prior to surgery unless otherwise directed by your surgeon. Vitamins/Herbal Products: You may continue to take your prescribed vitamins such as potassium, iron, vitamin B, vitamin C, or multivitamin unless specifically instructed by your surgeon to hold. STOPtaking all herbal products/teas one week prior to your surgery. Marijuana: Stop marijuana 72 hours prior to surgery, stop CBD oil 48 hours prior to surgery. If you have been given bowel prep instructions by your surgeon, please call the surgeon's office with any questions about these instructions. What do I do the day of Surgery? Age 2 through adult - Stop all solids by midnight, You may have clear liquids up to 2 hours before surgery, unless otherwise instructed by your surgeon. Clear liquids are: water, sports drinks such as Gatorade or G2, or apple juice. You may NOT have: tube feedings, dairy products, alcoholic beverages, orange juice, or any liquids with solids or pulp in it. If applicable, shower again with CHG soap the morning of your surgery. You may brush your teeth the morning of surgery. Wear your dentures and partial plates to the hospital (no adhesive). Do not use lotions, creams, powders, perfume, make up, cologne or after-shaves day of surgery. Remove ALL jewelry including wedding rings, body piercings (including dermal piercings),hair extensions that contain metal, nail spanish, make-up, and contact lens. If you received a green plastic bracelet, bring it with you the day of surgery and your nurse will put it on you. What do I need to do to prepare for surgery? If you will be going home the same day as your surgery, arrange for an adult over [address] Riding in a bus or taxi by yourself is not permitted. You should not smoke or drink alcohol 24 hours before your surgery. Alcohol thins the blood and may cause bleeding problems during surgery. Smoking increases the risk of breathing problems after surgery. Shower the night the before with an antibacterial soap. If applicable, use the CHG (chlorhexidine gluconate) soap or wipes. If any of these instructions conflict with those you received from the surgeon, please seek clarification from your surgeon's office. What should I bring to the hospital? If you received a green plastic bracelet, bring it with you the day of surgery and your nurse will put it on you. Eyeglass or contact lens case. If you will be spending the night, please bring personal care items and leave them in the car untilyou are taken to your room after surgery. Leave ALL valuables at home. DEEP BREATHING EXERCISES This exercise helps promote good air exchange and helps to prevent pneumonia after surgery. Breathe in slowly and deeply through the nose. Hold your breath for a few seconds and then exhale slowly through the mouth. Repeat this three times and then cough.Coughing helps to clear your lungs. If you have had a surgery with an incision into your abdomen or chest, press gently against your incision with a pillow or a folded blanket when you cough. Please be aware - it may not be thao to cough following some types of surgeries involving the eyes,ears, sinuses and throat. Always follow your doctor's instructions. LEG EXERCISE These exercises help promote good circulation and help to prevent blood clots after surgery. Point your toes to the ceiling and then point them to the wall. Do this slowly about 15-20 times. You may also move your feet in circles. Do the exercise that is most comfortable for you. If you have had surgery involving your shoulder or arm, we recommend you move your fingers. PRACTICING We ask that you begin practicing these exercises before your surgery. After surgery try to do both exercises at least every 2 hours during the day and early evening. SURGICAL SITE INFECTION PREVENTION What is a Surgical Site Infection? Infection can happen to the area of the body where surgery is done. This is called a surgical site infection (SSI). A SSI does not happen very often. Can SSIs be treated? Antibiotics are used to treat SSI. Some patients may need another surgery to treat the infection. The doctor will discuss treatment options with you. What are some of the things that hospitals are doing to prevent SSIs? Soap and water or alcohol hand rub are used before and after caring for each patient. Special soap is used to clean surgery workers hands and arms just before the surgery. Masks, gowns, gloves and hair covers are worn during the surgery to keep the area clean. Hair in the surgery area may be removed with clippers (not razors). A special soap that kills germs is used to clean the skin at the surgery site. Antibiotics may be given before the surgery starts. What can you do to prevent SSIs? Before surgery: You may be asked to shower or bathe with a special soap that kills germs the night before and the day of surgery. Use the soap as you were told. If you smoke, stop or cut down. Ask your doctor about ways to quit. Do not shave near where you will have surgery. Shaving can irritate the skin and make it easier to get and infection. After surgery: Be sure that the doctors and nurses clean their hands before and after touching you. Be sure your family and friends clean their hands before and after visiting you. Do not be afraid to remind them. * Care for your wound at home as told by your doctor or nurse * Call your doctor right away if you have fever, redness, increased pain, or drainage at the surgery site. Further questions? Contact the doctor, nurse or the Infection Prevention and Control department if you have any questions. PATIENT RIGHTS AND RESPONSIBILITIES As a patient at [facility], you have the right to: Receive medical care and be informed of who is taking care of you Be treated with dignity and respect Have a family member/financial service representative of choice and your physician notified of your admission Receive information and actively participate in decisions about your care and treatment Refuse care, treatment and services Decide who may provide your support and speak for you Access hinduism and spiritual services Participate in ethical issues and questions about your care Receive private and confidential care Have appropriate assessment and management of your pain Know guest visitation restrictions or limitations Have an advance directive Access protective services Consent or refuse to participate in research studies or production or recordings, films or other images Have resolution of your complaints Receive information of hospital charges and payment methods Patient/patient financial service representative responsibilities are to: Provide information about health status to facilitate care, treatment and services Follow the treatment, plan, keep appointments and speak up when you do not understand the plan Respect the rights of other patients and healthcare personnel Follow organizational rules and regulations that support quality care and a safe environment Fulfill financial obligations as promptly as possible [facility] [employer] SystemInstructionsNot on filedocumented in this encounter [facility] [employer] SystemInstructionsNot on filedocumented in this encounter [facility] SystemInstructionsNot on filedocumented in this encounter [facility] Center[facility]isc[facility] Notes* Pre-Procedure Instructions - Rosalva Westbrook RN - 05/07/2024 9:30 AM EDT Your surgery/procedure is scheduled at [facility] on 05/21/2024 at 1145 am Tentative arrival time 915 am per surgeon instructions You will receive a phone call from [facility] the day beforeyour surgery to verify your arrival time. [facility] [address] in Entrance D. Report to the registration desk in the main lobby. If you have any questions prior to surgery, you may call Pre-Admission Clinic at [phone] between 7:30 am and 4:30 pm Sunday through Sunday. If you have any concerns the morning of surgery, please call the Pre-op Department at [phone]. Notify your SURGEON if you develop any illness such as a cold, cough, fever, sore throat, vomiting or are hospitalized between now and your surgery. Medication Instructions (Do not stop your medications without consulting the prescribing physician). Take the following medications the morning of surgery with a sip of water: Tylenol if needed Diabetic or Weight loss medications: HOLD NA LAST DOSE NA Take inhalers as prescribed the morning of surgery. Due to the risk associated with these medications. If these medications are not held per instruction below, your surgery is at an increased risk for cancellation (See instructions above). SGLT2 Medications- Hold 3 days prior to surgery: Jardiance, Empagliflozin, Farxiga, Dapagliflozin, Invokana, Canagliflozin, Trijardy, Synjardy GLP-1 Medications (Injection or Pill)- If taken daily hold day of surgery. If taken weekly, hold 1 week prior to surgery: Adlyxin, Byetta, Bydureon, Ozempic, Rybelsus,Trulicity, Victoza, Wegovy, Lixisenatide, Exenatide, Semaglutide, Dulaglutide, Liraglutide GIP/GLP-1(Injection or Pill)- If taken daily hold day of surgery. If taken weekly, hold 1 week prior to surgery: Mounjaro . Blood thinners: Please contact your prescribing physician regarding a stop/hold date for these medications. Medications such as Coumadin, Heparin, Aspirin, Plavix, Eliquis, Pradaxa Diabetics: If you take insulin, contact your prescribing doctor for instructions on how to manage this the night before and the morning of surgery. Non-steriodal Anti-Inflammatory Drugs (NSAIDS)- Hold 3 days prior to surgery unless otherwise directed by your surgeon. Vitamins/Herbal Products: You may continue to take your prescribed vitamins such as potassium, iron, vitamin B, vitamin C, or multivitamin unless specifically instructed by your surgeon to hold. STOPtaking all herbal products/teas one week prior to your surgery. Marijuana: Stop marijuana 72 hours prior to surgery, stop CBD oil 48 hours prior to surgery. If you have been given bowel prep instructions by your surgeon, please call the surgeon's office with any questions about these instructions. What do I do the day of Surgery? Age 2 through adult - Stop all solids by midnight, You may have clear liquids up to 2 hours before surgery, unless otherwise instructed by your surgeon. Clear liquids are: water, sports drinks such as Gatorade or G2, or apple juice. You may NOT have: tube feedings, dairy products, alcoholic beverages, orange juice, or any liquids with solids or pulp in it. If applicable, shower again with CHG soap the morning of your surgery. You may brush your teeth the morning of surgery. Wear your dentures and partial plates to the hospital (no adhesive). Do not use lotions, creams, powders, perfume, make up, cologne or after-shaves day of surgery. Remove ALL jewelry including wedding rings, body piercings (including dermal piercings),hair extensions that contain metal, nail spanish, make-up, and contact lens. If you received a green plastic bracelet, bring it with you the day of surgery and your nurse will put it on you. What do I need to do to prepare for surgery? If you will be going home the same day as your surgery, arrange for an adult over [address] Riding in a bus or taxi by yourself is not permitted. You should not smoke or drink alcohol 24 hours before your surgery. Alcohol thins the blood and may cause bleeding problems during surgery. Smoking increases the risk of breathing problems after surgery. Shower the night the before with an antibacterial soap. If applicable, use the CHG (chlorhexidine gluconate) soap or wipes. If any of these instructions conflict with those you received from the surgeon, please seek clarification from your surgeon's office. What should I bring to the hospital? If you received a green plastic bracelet, bring it with you the day of surgery and your nurse will put it on you. Eyeglass or contact lens case. If you will be spending the night, please bring personal care items and leave them in the car untilyou are taken to your room after surgery. Leave ALL valuables at home. DEEP BREATHING EXERCISES This exercise helps promote good air exchange and helps to prevent pneumonia after surgery. Breathe in slowly and deeply through the nose. Hold your breath for a few seconds and then exhale slowly through the mouth. Repeat this three times and then cough.Coughing helps to clear your lungs. If you have had a surgery with an incision into your abdomen or chest, press gently against your incision with a pillow or a folded blanket when you cough. Please be aware - it may not be thao to cough following some types of surgeries involving the eyes,ears, sinuses and throat. Always follow your doctor's instructions. LEG EXERCISE These exercises help promote good circulation and help to prevent blood clots after surgery. Point your toes to the ceiling and then point them to the wall. Do this slowly about 15-20 times. You may also move your feet in circles. Do the exercise that is most comfortable for you. If you have had surgery involving your shoulder or arm, we recommend you move your fingers. PRACTICING We ask that you begin practicing these exercises before your surgery. After surgery try to do both exercises at least every 2 hours during the day and early evening. SURGICAL SITE INFECTION PREVENTION What is a Surgical Site Infection? Infection can happen to the area of the body where surgery is done. This is called a surgical site infection (SSI). A SSI does not happen very often. Can SSIs be treated? Antibiotics are used to treat SSI. Some patients may need another surgery to treat the infection. The doctor will discuss treatment options with you. What are some of the things that hospitals are doing to prevent SSIs? Soap and water or alcohol hand rub are used before and after caring for each patient. Special soap is used to clean surgery workers hands and arms just before the surgery. Masks, gowns, gloves and hair covers are worn during the surgery to keep the area clean. Hair in the surgery area may be removed with clippers (not razors). A special soap that kills germs is used to clean the skin at the surgery site. Antibiotics may be given before the surgery starts. What can you do to prevent SSIs? Before surgery: You may be asked to shower or bathe with a special soap that kills germs the night before and the day of surgery. Use the soap as you were told. If you smoke, stop or cut down. Ask your doctor about ways to quit. Do not shave near where you will have surgery. Shaving can irritate the skin and make it easier to get and infection. After surgery: Be sure that the doctors and nurses clean their hands before and after touching you. Be sure your family and friends clean their hands before and after visiting you. Do not be afraid to remind them. * Care for your wound at home as told by your doctor or nurse * Call your doctor right away if you have fever, redness, increased pain, or drainage at the surgery site. Further questions? Contact the doctor, nurse or the Infection Prevention and Control department if you have any questions. PATIENT RIGHTS AND RESPONSIBILITIES As a patient at [facility], you have the right to: Receive medical care and be informed of who is taking care of you Be treated with dignity and respect Have a family member/financial service representative of choice and your physician notified of your admission Receive information and actively participate in decisions about your care and treatment Refuse care, treatment and services Decide who may provide your support and speak for you Access hinduism and spiritual services Participate in ethical issues and questions about your care Receive private and confidential care Have appropriate assessment and management of your pain Know guest visitation restrictions or limitations Have an advance directive Access protective services Consent or refuse to participate in research studies or production or recordings, films or other images Have resolution of your complaints Receive information of hospital charges and payment methods Patient/patient financial service representative responsibilities are to: Provide information about health status to facilitate care, treatment and services Follow the treatment, plan, keep appointments and speak up when you do not understand the plan Respect the rights of other patients and healthcare personnel Follow organizational rules and regulations that support quality care and a safe environment Fulfill financial obligations as promptly as possible documented in this encounterUpper [facility] CenterReason for referral (narrative)* Reason Referral for screeni ng colonoscopy Diagnosis 1 Screening for colon cancer (Z12.11) Referral Organization [facility] florentino Referring Provider First Name Luther Referring Provider Last Name Arturo Referring Provider Specialty Internal Me dicine Referred Organization [facility] Referred Provider Dionisio Callejas Referred Address [address] [place], [place],[address] Referred Provider Specialty Surgery Referral Priority Routine General Notes Dr. Menjivar is being referred for a screening colonoscopy. He is an asymptomatic, low risk patient. He denies family history for colon cancer or polyps. He denies change in appetite, weight or bowel habits. He denies abdominal pain, heartburn or dysphagia. He denies melena or hematochezia. [employer] Other Reason for referral (narrative)* Diagnostic Procedure Only (Routine) - Pending Review Specialty Diagnoses / Procedures Referred By Contac t Referred To Contact US IMAGING Diagnoses Left inguinal pain Procedures US PELVIS LTD US PELVIC NONOBSTETRIC IMAGE DCMTN LIMITED/F/U Luther Ann MD [address] [place] [address] Us Imaging [id number] Referral ID Status Reason Start Date Expiration Date Visits Requested Visits Authorized [id number] Pending Review Auto-Generat ed Referral 08/10/2023 08/08/2024 [address] [facility] for referral (narrative)* Diagnostic Procedure Only (Routine) - Pending Review Specialty Diagnoses / Procedures Referred By Contac t Referred To Contact US IMAGING Diagnoses Left inguinal pain Procedures US HIP LEFT US COMPL JOINT R-T W/IMAGE DOCUMENTATION Luther Ann MD [address] [place] [address] Us Imaging [id number] Referral ID Status Reason Start Date Expiration Date Visits Requested Visits Authorized [id number] Pending Review Auto-Generat ed Referral 07/12/2023 08/09/2024 [address] [facility] for referral (narrative)* Diagnostic Procedure Only (Routine) - Closed Specialty Diagnoses / Procedures Referred By Contac t Referred To Contact US IMAGING Diagnoses Left inguinal pain Procedures US HIP LEFT US COMPL JOINT R-T W/IMAGE DOCUMENTATION Luther Ann MD [address] [place] [id number] [place] [address] Referral ID Status Reason Start Date Expiration Date V isits Requested Visits Authorized [id number] Closed Auto-Generate d Referral 07/12/2023 08/09/20[address] [facility] for referral (narrative)No reason for referral information [facility]Tr[facility] Work Phone: Reason for visit Narrative* Diagnostic Procedure Only (Routine) - Closed Specialty Diagnoses / Procedures Referred By Contac t Referred To Contact US IMAGING Diagnoses Left inguinal pain Procedures US HIP LEFT US COMPL JOINT R-T W/IMAGE DOCUMENTATION Luther Ann MD [address] [place] [address] [place] [address] Referral ID Status Reason Start Date Expiration Date V isits Requested Visits Authorized [id number] Closed Auto-Generate d Referral 07/12/2023 08/09/2024 [address] [facility] for visit Narrative* Rehabilitation - Outpatient (Routine) - Authorized Specialty Diagnoses / Procedures Referred By Contac t Referred To Contact Physical Therapy Diagnoses Other specified joint disorders, left hip Other articular cartilage disorders, left hip Procedures ND PHYSICAL THERAPY EVALUATION LOW COMPLEX 20 MINS Jeana Pierce MD [address] [place] [address] Phone: tel: fax: Micheal Savage, PT [address] [place] [address] Phone: tel: fax: Referral ID Status Reason Start Date Expiration Date Visits Requested Visits Authorized [id number] Authorized Consult and Treat 05/22/2024 11/18/2024 12 12 [facility] N[facility]* Rehabilitation - Outpatient (Routine) - Authorized Specialty Diagnoses / Procedures Referred By Contac t Referred To Contact Physical Therapy Diagnoses Other specified joint disorders, left hip Other articular cartilage disorders, left hip Procedures ND PHYSICAL THERAPY EVALUATION LOW COMPLEX 20 MINS Jeana Pierce MD [address] [place] [address] Phone: tel: fax: Micheal Savage, PT [address] [place] [address] Phone: tel: fax: Referral ID Status Reason Start Date Expiration Date Visits Requested Visits Authorized [id number] Authorized Consult and Treat 05/22/2024 02/11/2025 12 12 [facility]* Rehabilitation - Outpatient (Routine) - Closed Specialty Diagnoses / Procedures Referred By Contac t Referred To Contact Physical Therapy Diagnoses Other specified joint disorders, left hip Other articular cartilage disorders, left hip Procedures ND PHYSICAL THERAPY EVALUATION LOW COMPLEX 20 MINS Jeana Pierce MD [address] [place] [address] Phone: tel: fax: Micheal Savage, PT [address] [place] [address] Phone: tel: fax: Referral ID Status Reason Start Date Expiration Date V isits Requested Visits Authorized [id number] Closed Consult and Treat 05/22/2024 02/11/2025 12 12 [facility]* Rehabilitation - Outpatient (Routine) - Authorized Specialty Diagnoses / Procedures Referred By Contac t Referred To Contact Physical Therapy Diagnoses Other specified joint disorders, left hip Other articular cartilage disorders, left hip Procedures ND THERAPEUTIC PX 1/> AREAS EACH 15 MIN EXERCISES Jeana Pierce MD [address] [place] [address] Phone: tel: fax: Micheal Savage, PT [address] [place] [address] Phone: tel: fax: Referral ID Status Reason Start Date Expiration Date V isits Requested Visits Authorized [id number] Authorized 08/18/2024 10/19/2024 8 8 [facility] Healthcare Summary Purpose Family History No Family History Records Found Relationship Condition Age at Onset Recorded Date/T malu father Malignant neoplasm Unknown High blood cholesterol Unknown mother Hypertension Unknown History of stroke Unknown Migraine Unknown Advance Directives No Advanced Directives Records Found Advance Directive Response Recorded Date/ Time Advance Directives No December 11:21am Reason for Referral Specialty Diagnoses / Procedures Referred By Contac t Referred To Contact [facility] Diagnoses Pain in left hip Procedures CONSULT TO PHYSICAL THERAPY PHYSICAL THERAPY EVALUATION HIGH COMPLEX 45 MINS Brad Hanna MD [address] [place] [address] [facility] [place] [address] Referral ID Status Reason Start Date Expiration Date Visits Requested Visits Authorized [id number] Pending Review Auto-Generat ed Referral 09/10/2023 09/09/2024 1 1 Chief Complaint and Reason for Visit Chief Complaint Admit Date fpg 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 October 10, 2024 8: 00am Additional Source Comments (unrecognized sect ion and content) No Status Records FoundNo Status Records FoundNo Status Records FoundNo Status Records FoundNo Status Records FoundNo Status Records FoundNo Status Records Found INFORMATION SOURCE (unrecogn ized section and content) DATE CREATED AUTHOR 08/17/2020 [facility] DATE CREATED AUTHOR AUTHOR'S ORGANIZ ATION 12/23/2021 [facility] DATE CREATED AUTHOR AUTHOR'S ORGANIZ ATION 09/17/2023 [facility] DATE CREATED AUTHOR AUTHOR'S ORGANIZ ATION 03/12/2024 [facility] DATE CREATED AUTHOR AUTHOR'S ORGANIZ ATION 05/22/2024 [facility] DATE CREATED AUTHOR AUTHOR'S ORGANIZ ATION 08/29/2024 [facility] DATE CREATED AUTHOR AUTHOR'S ORGANIZ ATION 10/17/2024 [facility] REASON FOR VISIT (unrecogniz ed section and content) Reason Comments Consult Reason Comments Appointment Specialty Diagnoses / Procedures Referred By Contac t Referred To Contact Physical Therapy Diagnoses Lt hip pain Procedures ND PHYSICAL THERAPY EVALUATION HIGH COMPLEX 45 MINS Brad Hanna MD Micheal Savage, PT [address] [place] [address] Referral ID Status Reason Start Date Expiration Date V isits Requested Visits Authorized [id number] Authorized 09/20/2023 03/18/2024 20 20 Reason Comments 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 Follow-up Left hip scope sched uled for 05/21/24. Reason Comments Post-op Fp left hip scope 05/21/24 PT started today Reason Comments Post-op Left hip scope 5 PT 2 times/week going well Reason Comments Follow-up Left hip scope /25 PT 2 times/week plus hep going well Source Comments (unrecognize d section and content) In the event this informatio n is protected by the Federal Confidentiality of Alcohol and Drug Abuse Patient Records regulations: The Federal rules restrict any use of the information to criminally investigate or prosecute any alcohol or drug abuse patient.[facility] HospitalIn the event this information is protected by the Federal Confidentiality of Alcohol and Drug Abuse Patient Records regulations: The Federal rules restrict any use of the information to criminally investigate or prosecute any alcohol or drug abuse patient.[facility] Hospital[facility] the event this information is protected by the Federal Confidentiality of Alcohol and Drug Abuse Patient Records regulations: The Federal rules restrict any use of the information to criminally investigate or prosecute any alcohol or drug abuse patient.[facility] Hospital[facility] the event this information is protected by the Federal Confidentiality of Alcohol and Drug Abuse Patient Records regulations: The Federal rules restrict any use of the information to criminally investigate or prosecute any alcohol or drug abuse patient.[facility] Hospital[facility] the event this information is protected by the Federal Confidentiality of Alcohol and Drug Abuse Patient Records regulations: The Federal rules restrict any use of the information to criminally investigate or prosecute any alcohol or drug abuse patient.[facility] Care Teams (unrecognized sec tion and content) Marine Service Operator Relationship Specialty Start Date End Date Luther Nicolas MD [address] [place] [address] PCP - General 11/21/22 Marine Service Operator Relationship Specialty Start Date End Date Luther Nicolas MD [address] [place] [address] PCP - General 11/21/22 Marine Service Operator Relationship Specialty Start Date End Date Luther Nicolas MD [address] [place] [address] PCP - General 11/21/22 Marine Service Operator Relationship Specialty Start Date End Date Luther Nicolas MD [address] [place] [address] PCP - General 11/21/22 Marine Service Operator Relationship Specialty Start Date End Date Luther Nicolas MD [address] [facility] [phone] PCP - General 11/21/22 Marine Service Operator Relationship Specialty Start Date End Date Luther Nicolas MD [address] [facility] [address] PCP - General 11/21/22 Marine Service Operator Relationship Specialty Start Date End Date Luther Nicolas MD [address] [facility] [address] PCP - General 11/21/22 Marine Service Operator Relationship Specialty Start Date End Date Luther Nicolas MD [address] [facility] [address] PCP - General 11/21/22 Marine Service Operator Relationship Specialty Start Date End Date Luther Nicolas MD [address] [facility] [address] PCP - General 11/21/22 Marine Service Operator Relationship Specialty Start Date End Date Luther Nicolas MD [address] [facility] [place] [address] PCP - General 11/21/22 Marine Service Operator Relationship Specialty Start Date End Date Luther Nicolas MD [address] [facility] [place] [address] PCP - General 11/21/22 Marine Service Operator Relationship Specialty Start Date End Date Luther Nicolas MD [address] [place] [address] PCP - General 11/21/22 Marine Service Operator Relationship Specialty Start Date End Date Luther Nicolas DO [address] [place] [address] PCP - General Internal Medicine 10/16/23 Marine Service Operator Relationship Specialty Start Date End Date Luther Nicolas DO [address] [place] [address] PCP - General Internal Medicine 10/16/23 Marine Service Operator Relationship Specialty Start Date End Date Luther Nicolas DO [address] [place] [address] PCP - General Internal Medicine 10/16/23 Marine Service Operator Relationship Specialty Start Date End Date Luther Nicolas DO [address] [place] [address] PCP - General Internal Medicine 10/16/23 Marine Service Operator Relationship Specialty Start Date End Date Luther Nicolas DO [address] [place] [address] PCP - General Internal Medicine 10/16/23 Marine Service Operator Relationship Specialty Start Date End Date Luther Nicolas MD PCP - General 11/21/22 Marine Service Operator Relationship Specialty Start Date End Date Luther Nicolas MD PCP - General 11/21/22 Marine Service Operator Relationship Specialty Start Date End Date Luther Nicolas DO [address] [place] [address] PCP - General Internal Medicine 10/16/23 Marine Service Operator Relationship Specialty Start Date End Date Luther Nicolas DO PCP - General 11/21/22 Marine Service Operator Relationship Specialty Start Date End Date Luther Nicolas DO PCP - General 11/21/22 Marine Service Operator Relationship Specialty Start Date End Date Luther Nicolas DO PCP - General 11/21/22 Marine Service Operator Relationship Specialty Start Date End Date Luther Nicolas DO PCP - General 11/21/22 Marine Service Operator Relationship Specialty Start Date End Date Luther Nicolas DO PCP - General 11/21/22 Marine Service Operator Relationship Specialty Start Date End Date Luther Nicolas DO PCP - General 11/21/22 Marine Service Operator Relationship Specialty Start Date End Date Luther Nicolas DO PCP - General 11/21/22 Marine Service Operator Relationship Specialty Start Date End Date Luther Nicolas DO PCP - General 11/21/22 Marine Service Operator Relationship Specialty Start Date End Date Luther Nicolas DO PCP - General 11/21/22 Marine Service Operator Relationship Specialty Start Date End Date Luther Nicolas DO [address] [place] [address] PCP - General Internal Medicine 10/16/23 Marine Service Operator Relationship Specialty Start Date End Date Luther Nicolas DO PCP - General 11/21/22 Marine Service Operator Relationship Specialty Start Date End Date Luther Nicolas DO PCP - General 11/21/22 Marine Service Operator Relationship Specialty Start Date End Date Luther Nicolas DO PCP - General 11/21/22 Marine Service Operator Relationship Specialty Start Date End Date Luther Nicolas DO [facility] General 11/21/22 Marine Service Operator Relationship Specialty Start Date End Date Luther Nicolas [address] [place] [address] [facility] Internal Medicine 10/16/23 Marine Service Operator Relationship Specialty Start Date End Date Luhter Nicolas DO [facility] General 11/21/22 Team Status: Active Member Role Status Dates Luther Nicolas DO Primary Care Provider Active Team Status: Inactive Member Role Status Dates Luther Nicolas DO Primary Care Provider Active Start: October 10, 2024 End: October 10, 2024 Jorge David Jr, DO Attending Provider Active S tart: October 10, 2024 End: October 10, 2024 Goals (unrecognized section and content) Goals may be documented in a n alternate section FOR RECORDS PERTAINING TO PATIENTS WHO ARE OR HAVE BEEN ENROLLED IN A CHEMICAL DEPENDENCY/SUBSTANCEABUSE PROGRAM, SOME INFORMATION MAY BE OMITTED. This clinical summary was aggregated from multiple sources. Caution should be exercised in using it in the provision of clinical care. This summary normalizes information from multiple sources, and as a consequence, information in this document may materially change the coding, format and clinical context of patient data. In addition, data may be omitted in some cases. CLINICAL DECISIONS SHOULD BE BASED ON THE PRIMARY CLINICAL RECORDS. [facility] [employer] [facility]. provides no warranty or guarantee of the accuracy or completeness of information in this document.
[2024-11-04 16:21] LABS: Alanine Aminotransferase 33 U/L (16-63); Albumin Globulin Ratio 1.0; Albumin Level 3.8 g/dL (3.4-5.0); Alkaline Phosphatase 84 U/L (46-116); Anion Gap 10.7; Aspartate Amino Transferase 21 U/L (15-37); Blood Urea Nitrogen 13.0 mg/dL (7.0-18.0); Calcium 8.6 mg/dL (8.5-10.1); Carbon Dioxide 24.6 mmol/L (21.0-32.0); Chloride 102 mmol/L (98-107); Estimated GFR (African America >60 (>=60 mL/min/1.73m^2); Estimated GFR (Non-African Ame >60 (>=60 mL/min/1.73m^2); Globulin 3.7 g/dL; Glucose 152 mg/dL (74-106); Potassium 3.3 mmol/L (3.5-5.1); Sodium 134 mmol/L (136-145); Thyroid Stimulating Hormone 1.168 uIU/mL (0.358-3.740); Total Protein 7.5 g/dL (6.4-8.2)
== END 2024-11-04 15:11 | disposition home or self-care (01) ==
LOC: LAB 15:10
PROVIDERS: PCP Internal Medicine; Visit Provider Internal Medicine
DX: Z00.00 Encounter for general adult medical examination without abnormal findings (principal); Z12.5 Encounter for screening for malignant neoplasm of prostate; R06.00 Dyspnea, unspecified; R07.9 Chest pain, unspecified
CPT/HCPCS: 36415; 71046; 80053; 84443; 84484; 85025; 85378; G0103

== ENCOUNTER 2024-11-18 07:02 | Outpatient (OUT) | payer OTHER, SELFPAY ==
--- OUTSIDE RECORDS SUMMARY | 2024-11-04 14:40 | XMS_ITS | Continuity of Care Document ---
Author Organization [facility] Address [address] [place] [address] Phone Care Team Providers Care Paper Machine Operator Name Role Phone Luther Nicolas DO Primary Care Provider Luther Nicolas DO Attending Provider [phone] Care Teams Patient Care Team Team Status: Active Member Role Status Dates Luther Nicolas DO Primary Care Provider Active Patient Care Team Team Status: Inactive Member Role Status Dates Luther Nicolas DO Primary Care Provider Active Start: November 04, 2024 End: November 04, 2024 Luther Nicolas DO Attending Provider Active Sta rt: November 04, 2024 End: November 04, 2024 Chief Complaint and Reason for Visit Chief Complaint Admit Date intermittent chest pain November 04, 2024 1:53pm [...] 0 .ROUTE .COMPLEX September 18, 2023 8:39am Augus t 2024 8:11a m TAKE 1 CAPSULE BY MOUTH EVERY DAY FOR 90 DAYS Montelukast 10 mg tablet Discont inued 10 MG PO Daily Novemb er 2023 1:00am Novem luda 2023 9:45p m Montelukast 10 mg tablet Active 0 .ROUTE .COMPLEX b er 2023 9:45pm TAKE 1 TABLET BY MOUTH EVERYDAY AT BEDTIME Complies with drug therapy Tamsulosin 0.4 mg capsule Active 0 .ROUTE .COMPLEX September 16, 2024 8:11am TAKE 1 CAPSULE BY MOUTH EVERY DAY FOR 90 DAYS Complies with drug therapy Tamsulosin 0.4 mg capsule Discont inued 0.4 MG PO Daily September 18, 2023 12:00a m Augus 2023 8:39a m Albuterol Sulfate 90 mcg/actuati on HFA aerosol inhaler Active INHALA TION Novemb er 2023 1:00am Complies with drug therapy Immunizations Immunization Event Date Not Given Reason Dose Number Emergency Room Registered Nurse Lot Number Vaccine Information Statement (VIS) Detail Administration Location COVID-19 mRNA-1273 (Moderna) February 11, 2020 [id number] [id number] COVID-19 mRNA-1273 (Moderna) March 11, 2020 [id number] COVID-19 mRNA-1273 (Moderna) December 03, 2020 [id number] Influenza, injectable, MDCK, pf December 12, 2023 [id number] Tetanus, Diphtheria, Pertussis (Tdap) October 10, 2024 [id number] Vital Signs Vital Reading Result Reference Range Collection Date/Time Height 68 [in_i] November 04, 2024 2:00pm Weight 89.01 kg November 04, 2024 2:00pm Heart Rate 108 /min 60-100 November 04, 2024 2:00pm Respiratory rate 12 /min 12-24 October 142024 2:00pm BP Systolic 157 mm[Hg] 100-140 November 04, 2024 2:00pm BP Diastolic 95 mm[Hg] 60-100 November 04, 2024 2:00pm BMI (Body Mass Index) 29.8 kg/m2 2024 2:00pm Advance Directives Advance Directive Response Recorded Date/ Time Advance Directives No December 11:21am Insurance Providers Guarantor Henrik Simmons Address [address] [facility] [address] Contact Info. Home Phone: Payer Policy Id Subscriber's Name Subscriber Id Effectiv e Date Expiration Date [place] [id number] Henrik Simmons [id number] Vini RENEE/EVA [id number] Henrik Simmons [id number] Encounters Encounter Location(s) Arrival/Admit Date Discharge/Depart Date Provider(s) Departed Physician/Prov ider Office Visit -[facility] November 04, 2024 1:53pm November 04, 2024 2:39pm Lutehr Nicolas DO Recent Diagnosis Onset Date Admit [...] Complete Blood Count Auto Diff November 04 2:36pm Troponin I High Sensitivity November 04, 2024 2:36pm PSA Screen (Yearly Only) November 04, 2024 2: 36pm Thyroid Stimulating Hormone November 04, 2024 2:36pm Future Medications Future medication information is unavailable Patient Instructions Patient instructions are unavailable
--- NOTE | 2024-11-18 07:01 | CA_ITS ---
Patient Name: SAMSON MENJIVAR MR#: [id number] : 1975 Exam Date: 11/18/2024 Ordering Doctor: DR MILANA MORRIS D.O. ECHOCARDIOGRAM REPORT PROCEDURE: CA ECHO DOPPLER COMPLETE INDICATIONS: Heart murmur, dyspnea, chest pain COMPARISON: None. DESCRIPTION: COMPLETE ECHOCARDIOGRAM Real-time transthoracic echocardiography with 2D, M-mode, spectral and color flow Doppler performed. QUALITY: Technical quality was good. LEFT VENTRICLE: Normal chamber size. Mild concentric left ventricular hypertrophy. Estimated left ventricular ejection fraction is 60-65% LV EF: Normal left ventricular ejection fraction, (>55%). DIASTOLIC: Normal diastolic function. ATRIAL SEPTUM: Visually appears intact. LEFT ATRIUM: Normal chamber size. RIGHT ATRIUM: Normal chamber size. RIGHT VENTRICLE: Normal chamber size. Normal right ventricular systolic function. TRICUSPID VALVE: Normal mobility and thickness. No stenosis with trivial regurgitation. Unable to asses right-sided pressures due to lack of measurable tricuspid regurgitation. MITRAL VALVE: Normal mobility and thickness. No evidence of mitral valve stenosis. There is no mitral annular calcification. AORTIC VALVE: Normal trileaflet appearance. No visible sclerosis. Normal leaflet mobility. No evidence of aortic valve stenosis. No aortic regurgitation. AORTIC ROOT: Normal diameter and appearance, measuring 3.1 cm. Ascending aorta is normal in size, measuring 2.7 cm. PULMONIC VALVE: Normal thickness and mobility. No stenosis. No regurgitation. PERICARDIUM: No evidence of pericardial effusion. IVC: Collapses with inspiration. PLEURA: CONCLUSION: 1. Mild concentric left ventricular hypertrophy with normal systolic function. Estimated LVEF is 60-65%. 2. Normal right ventricular size and systolic function. 3. Normal diastolic function. 4. No significant valvular dysfunction. 5. Unable to assess right-sided pressures due to lack of measurable tricuspid regurgitation. Adult Echocardiography Procedure Report Left Ventricle LVEDD (3.7 - 5.6 cm): 3.63 cm LVESD (2.2 - 4.0 cm): 2.52 cm LVIVS thickness (0.6 - 1.2 cm): 1.11 cm LVPW thickness (0.5 - 1.0 cm): 1.10 cm e': 0.14 m/s E - e': 6.35 LVOT Max Gradient: 8.44 mm[Hg] LVOT Area (cm2): 1.45 m/s Peak Velocity (LVOT): 1.45 m/s Mean Velocity (LVOT): 0.94 m/s LVOT Diameter 2.17 cm Left Ventricular Ejection Fraction: 60-65% Left Atrium LA Volume Index (2D A2C): 27.21 ml/m2 Left Atrium Systolic Dimension: 3.05 cm Mitral Valve MV E to A Ratio: 1.33 Mitral Valve A-Wave Peak Velocity: 0.66 m/s Mitral Valve E-Wave Peak Velocity: 0.88 m/s Right Ventricle Aorta AO Root Diam: 3.09 cm Ascending Ao Diam: 2.75 cm Aortic Valve AoV Area (Peak Jewel): 3.78 cm2, 3.78 cm2 AoV Area (VTI): 3.90 cm2, 3.90 cm2 Peak Velocity(Antegrade Flow): 1.42 m/s Peak Gradient(Antegrade Flow): 8.06 mm[Hg] Mean Velocity(Antegrade Flow): 1.00 m/s Mean Gradient(Antegrade Flow): 4.56 mm[Hg] Velocity Time Integral: 25.09 cm Tricuspid Valve Pulmonic Valve Peak Gradient: 8.41 mm[Hg], 8.52 mm[Hg] Right Atrium Right Atrium Systolic Pressure: 29.54 ml, 29.54 ml Dictated by: Luis Mehta M.D. on 11/18/2024 at 17:13 Approved by: Luis Mehta M.D. on 11/18/2024 at 17:19
--- OUTSIDE RECORDS SUMMARY | 2024-11-18 07:04 | XMS_ITS | Clinical Summary ---
Author Organization [facility] tem Address [id number] [address] [place] [address] Care Team Providers Care Mortgage Branch Manager Name Role Phone FidencioLuther Primary Care Provider [phone] Allergies No known active allergies Medications tamsulosin [...] 12:55 PM EDT Office Visit [facility] [address] [place] [address] Toñito Shi MD Femoroacetabular impingement [...] Not on file Insurance ANTHJ[employer]ELYNN Care Teams Mortgage Branch Manager Relationship Specialty Start Date End Date Luther Nicolas DO [facility] [place] [address] PCP - General Internal Medicine 10/16/23
--- OUTSIDE RECORDS SUMMARY | 2024-11-18 07:04 | XMS_ITS | Clinical Summary ---
Author Organization [facility] Address [address] [place] [address] Care Team Providers Care Post Anesthesia Room Nurse Name Role Phone Unavailable Primary Care Provider Unavailabl e Allergies No known active allergies Medications montelukast (SINGULAIR) 10 mg tablet Take by mouth every 24 hours. 10/08/2021 Active tamsulosin (FLOMAX) 0.4 mg 09/22/2022 Act joshua cetirizine (ZYRTEC) 10 mg tablet Active Active Problems No known active problems Encounters Date Type Department Care Team Description 08/19/2024 [place] [address] Provider, [facility]cf Sign up to manage your [...] is lower risk 6 07/10/2023 Data from: https://www.neighborhoodatlas.medicine.[facility].edu/. Last address used for calculation [...] (1 of 3 - 19+ 3-dose series) 12/09/1995 Lipid Screening 12/09/2011 CT Colonography 2021 Cologuard (FIT-DNA) 2021 Colonoscopy 2021 Colorectal Cancer Screening 2021 Diabetes Screening 2021 Fecal Occult Blood 2021 Sigmoidoscopy 2021 Covid-19 Vaccine ( season) 2024 12/03/2020, 03/11/2020, 02/11/2020 Influenza Vaccine (#1) 2024 Insurance Mike E Amadeo [address] PPO
--- OUTSIDE RECORDS SUMMARY | 2024-11-18 07:04 | XMS_ITS | Encounter Summary ---
Author Organization [facility] Address [id number] [address] [place] [address] Care Team Providers Care Insurance Biller Name Role Phone Luther Nicoals DO Primary Care Provider [phone] Reason for Visit * Reason Comments Med Change Request Encounter Details Date Type Department Care Team (Late st Contact Info) Description 06/12/2024 Refill [facility] [address] [place] [address] Toñito Shi MD [address] [place] [address] Social History Tobacco Use Types Packs/Day Years [...] on filedocumented in this encounter Care Teams Insurance Biller Relationship Specialty Start Date End Date Luther Nicolas DO [address] [place] [address] PCP - General Internal Medicine 10/16/23 documented as of this encounter
--- OUTSIDE RECORDS SUMMARY | 2024-11-18 07:04 | XMS_ITS | Encounter Summary ---
Author Organization [facility] Address [facility] [place] [address] Care Team Providers Care Software Client Architect Name Role Phone Unavailable Primary Care Provider Unavailabl e Source Comments In the event this information is protected by the Federal Confidentiality of Alcohol and Drug AbusePatient Records regulations: The Federal rules restrict any use of the information to criminally investigate or prosecute any alcohol or drug abuse patient.[facility] Encounter Details Date Type Department Care Team (Late st Contact Info) Description 08/19/2024 [place] [address] Provider, Ccf Sign up to manage your digestive symptoms in between visits, covered by insurance Social History Tobacco Use Types Packs/Day Years Used Date Smoking Tobacco: Never Smokeless Tobacco: Never Area Deprivation Index Answer Date Donta rded National Score (1-100), lower number is lower ri sk 75 07/10/2023 State Score (1-10), lower number is lower risk 6 07/10/2023 Data from: https://www.neighborhoodatlas.medicine.[facility].edu/. Last address used for calculation [address] 07/10/2023 Sex and Gender Information Value Date Recorded Sex Assigned at Not on file Legal Sex Male 4:00 PM EDT Gender Identity Not on file Sexual Orientation Not on file documented as of this encounter Plan of Treatment Not on file documented as of this encounter Visit Diagnoses Not on filedocumented in this encounter
--- OUTSIDE RECORDS SUMMARY | 2024-11-18 07:04 | XMS_ITS | Clinical Summary ---
Author Organization [facility] Address [address] [place] [address] Care Team Providers Care Calculus Tutor Name Role Phone Luther Nicolas DO Primary Care Provider [phone] Allergies No known active allergies Medications tamsulosin [...] Team Description 09/04/2024 5:00 PM EDT Treatment [facility] [address] [place] [address] Alejandra Lee PTA Left hip pain (Primary Dx); Femoroacetabular impingement of left hip; Articular cartilage disorder of left hip 09/04/2024 Travel 09/02/2024 5:00 PM EDT Treatment [facility] [address] [place] [address] Lucy Fay PTA Left hip pain (Primary Dx); Femoroacetabular impingement of left hip; Articular cartilage disorder of left hip 09/02/2024 Travel 08/29/2024 1:30 PM EDT Treatment [facility] [address] [place] [address] Lee, 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
--- OUTSIDE RECORDS SUMMARY | 2024-11-18 07:06 | XMS_ITS | CCD ---
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 Name Role Phone ARTURO, DR CORTÉS Admitting [...] MAYRA Admitting Unavailable ALEXANDRO, MAYRA Attending Unavailable ALXEANDRO, MAYRA Consulting Unavailable Arturo Luther Unavailable Unavailable [...] Unavailable Luther Nicolas DO Primary Care Provider [phone] Jorge David DO Attending Provider [phone] Jorge David Jr Attending Unavailable Jorge David Jr Admitting Unavailable Luther Nicolas Primary Care Unavailable Luther Nicolas DO Attending Provider [phone] Medications Current Medications Medication Drug Class(es) Dates [...] 8 tablets 40 tablet 05/21/2024 05/26/2024 Active [id number] 200 actuat albuterol 0.09 mg/actuat metered dose inhaler (6 sources) beta2-Adrenergic Agonist Start: 01-02-2024 Albuterol Sulfate 90 mcg/actuation HFA aerosol inhaler Active INHALATION January 02, 2024 1:00am Complies with drug therapy take 2 puff(s) by in halation every [...] tablet by mouth once daily at bedtime Montelukast 10 mg tablet Active 0 .ROUTE .COMPLEX 90 December 17, 2023 9:45pm TAKE 1 TABLET BY MOUTH EVERYDAY AT BEDTIME Complies with drug therapy Start: 12-17-2023 End: 12-17-2023 take 1 tablet [...] mouth once daily Tamsulosin 0.4 mg capsule Active 0 .ROUTE .COMPLEX 90 September 16, 2024 8:11am TAKE 1 CAPSULE BY MOUTH EVERY DAY FOR 90 DAYS Complies with drug therapy Start: 09-22-2022 End: 09-18-2023 take 1 capsule by mouth once daily Tamsulosin 0.4 mg capsule Discontinued 0.4 MG PO Daily September 18, 2023 12:00am September 18, 2023 8:39am tamsulosin (Flom ax) 0.4 MG 24 hr capsule Active Problems Active Problems Problem Classification Problem Date Documented Date Episodic/Chronic Abdominal pain (8 sources) Left lower quadrant pain; Translations: [Left inguinal pain] Onset: 06-17-2021 Episodic Asthma (6 sources) Mild intermittent asthma; Translations: [Mild intermittent asthma, uncomplicated] 01-08-2024 Chronic Esophageal disorders (6 sources) Gastroesophageal reflux disease without esophagitis; Translations: [Gastro-esophageal reflux disease without esophagitis] 01-08-2024 Chronic Genitourinary symptoms and ill-defined conditions (6 sources) Delay when starting to pass urine; Translations: [Hesitancy of micturition] Episodic Heart valve disorders (2 sources) Heart murmur; Translations: [Cardiac murmur, unspecified] 11-04-2024 Episodic Hyperplasia of prostate (8 sources) Lower urinary tract symptoms due to benign prostatic hypertrophy; Translations: [Benign prostatic hyperplasia with lower urinary tract symptoms] Chronic Joint disorders and dislocations; trauma-related (20 sources) Other articular cartilage disorders, left hip; Translations: [Acetabular labrum tear] Onset: 03-07-2024 03-26-2024 Chronic Nonspecific chest pain (2 sources) Chest pain; Translations: [Chest pain, unspecified] 11-04-2024 Episodic Other aftercare (1 source) Postoperative visit; Translations: [Encounter for other specified surgical aftercare] 07-01-2024 Episodic Other aftercare (1 source) Encounter for other specified surgical aftercare; Translations: [Encounter for other specified surgical aftercare] Onset: 07-01-2024 Episodic Other injuries and conditions due to external causes (6 sources) Other specified injuries of abdomen, subsequent encounter; Translations: [OTH SPEC INJURIES ABD SUBSEQUENT] Onset: 12-16-2021 Episodic Other lower respiratory disease (2 sources) Dyspnea; Translations: [Dyspnea, unspecified] 11-04-2024 Episodic Other nervous system disorders (1 source) [...] 03-26-2024 12-18-2023 Episodic Other non-traumatic joint disorders (2 sources) Enthesopathy of hip region; Translations: [Other specified [...] MDRD (S/P/Bld) [Vol rate/Area] mL/min/{1.73_m2} Normal [facility] Comment on above: Performed By: #### E BS LIPID, EMP BMP #### [address] Calcium [Mass/volume] in Ser um or PlasmaOrdered By: Jorge David on 10-10-2024 Calcium [Mass/Vol] 9.4 mg/dL 8.6-10.3 [facility] Comment on above: Performed By: #### E BS LIPID, EMP BMP #### [facility] [address] [place] [address] [place] Carbon dioxide, total [Moles /volume] in Serum or PlasmaOrdered By: Jorge David on 10-10-2024 CO2 [Moles/Vol] 25.7 mmol/L 21.0-31.0 [facility] Comment on above: Performed By: #### E BS LIPID, EMP BMP #### [facility] [address] [place] [address] [place] Chloride [Moles/volume] in S caity or PlasmaOrdered By: Jorge David on 10-10-2024 Chloride [Moles/Vol] 105 mmol/L 98-107 [facility] Comment on above: Performed By: #### E BS LIPID, EMP BMP #### [facility] [address] [place] [address] [place] Cholesterol [Mass/volume] in Serum or PlasmaOrdered By: Jorge David on 10-10-2024 Cholesterol [Mass/Vol] 205 mg/dL High 140-200 [facility] Comment on above: Chol less than 200 m g/dl low riskChol 201-239 mg/dl borderline riskChol 240 mg/dl and greater high risk Result Comment: Chol less than 200 mg/dl low risk Chol 201-239 mg/dl borderline risk Chol 240 mg/dl and greater high risk Performed By: #### E BS LIPID, EMP BMP #### [facility] [address] [place] [address] [place] Cholesterol in HDL [Mass/vol ume] in Serum or PlasmaOrdered By: Jorge David on 10-10-2024 Cholesterol in HDL [Mass/Vol] 46 mg/dL 23-92 [facility] Comment on above: HDL CHOL ATP-III CLA SSIFICATION Cardiovascular RiskHDL > or equal to 60 mg/dL LOWHDL < 40 mg/dL HIGH Result Comment: HDL CHOL ATP-III CLASSIFICATION Cardiovascular Risk HDL > or equal to 60 mg/dL LOW HDL < 40 mg/dL HIGH Performed By: #### E BS LIPID, EMP BMP #### [facility] [address] [place] [id number] [place] Cholesterol in LDL Calc [Mas s/Vol]Ordered By: Jorge David on 10-10-2024 Cholesterol in LDL [Mass/Vol] 126 mg/dL High 0-100 [facility] Comment on above: LDL ATP III CLASSIFI CATIONLDL less than 100 mg/dL OptimalLDL 100-129 mg/dL Near or above optimalLDL 130-159 mg/dL Borderline highLDL 160-189 mg/dL HighLDL greater than 189 mg/dL Very high Cholesterol in VLDL Calc [Ma ss/Vol]Ordered By: Jorge David on 10-10-2024 Cholesterol in VLDL [Mass/Vol] 32 mg/dL [facility] Creatinine [Mass/volume] in Serum or PlasmaOrdered By: Jorge David on 10-10-2024 Creatinine [Mass/Vol] 1.05 mg/dL 0.70-1.[address] [facility] Comment on above: Performed By: #### E BS LIPID, EMP BMP #### [facility] [address] [place] [id number] [facility] Glomerular filtration rate [ Volume Rate/Area] in Serum, Plasma or Blood by CreatinineOrdered By: Jorge David on 10-10-2024 Glomerular filtration rate [Volume Rate/Area] in Serum, Plasma or Blood by Creatinine > 60.0 mL/Min [facility] Glucose [Mass/volume] in Ser um or PlasmaOrdered By: Jorge David on 10-10-2024 Glucose [Mass/Vol] 93 mg/dL 70-100 [facility] Comment on above: Performed By: #### E BS LIPID, EMP BMP #### [facility] [address] [place] [id number] [place] Lipid Profileon 10-10-2024 LDL Cholesterol,Calculated 126 mg/dL High 0-100 [facility] Comment on above: Result Comment: LDL ATP III CLASSIFICATION LDL less than 100 mg/dL Optimal LDL 100-129 mg/dL Near or above optimal LDL 130-159 mg/dL Borderline high LDL 160-189 mg/dL High LDL greater than 189 mg/dL Very high Performed By: #### E BS LIPID, EMP BMP #### [facility] [address] Triglyceride w/Reflex 164 mg/dL High 0-149 [facility] Comment on above: Result Comment: TRIG ATP III CLASSIFICATION TRIG less than 150 mg/dL Normal TRIG 150-199 mg/dL Borderline high TRIG 200-500 mg/dL High TRIG greater than 500 mg/dL Very high Standard traceable to the Center for Disease Conrtrol and Prevention (CDC) test method. Performed By: #### E BS LIPID, EMP BMP #### [facility] [address] [place] [address] VLDL CHOLESTEROL 32 mg/dL Normal [facility] Comment on above: Performed By: #### E BS LIPID, EMP BMP #### [facility] [address] [place] [address] No Panel InformationOrdered By: Jorge David on 10-10-2024 Pharmacy Creatinine Clearance (Chem N/A [facility] Potassium [Moles/volume] in Serum or PlasmaOrdered By: Jorge David on 10-10-2024 Potassium [Moles/Vol] 4.6 mmol/L 3.5-5.[address] [facility] Comment on above: Performed By: #### E BS LIPID, EMP BMP #### [facility] [address] [place] [address] Serum or plasma anion gap de terminationOrdered By: Jorge David on 10-10-2024 Anion gap [Moles/Vol] 10.9 mmol/L 6.0-15.0 [facility] Comment on above: Performed By: #### E BS LIPID, EMP BMP #### [facility] [address] [place] [address] Serum or plasma total choles terol/high density lipoprotein (HDL) cholesterol mass ratOrdered By: Jorge David on 10-10-2024 Cholesterol.total/Angelique sterol in HDL [Mass ratio] 4.5 {ratio} <5.0 [facility] Comment on above: Result Comment: PERF ORMED BY: [place] [address] PATHOLOGIST [employer] BELT SANDER WENDI KAYE M.D. Performed By: #### E BS LIPID, EMP BMP #### [facility] [address] Sodium [Moles/volume] in Ser um or PlasmaOrdered By: Jorge David on 10-10-2024 Sodium [Moles/Vol] 137 mmol/L 136-145 [facility] Comment on above: Performed By: #### E BS LIPID, EMP BMP #### [facility] [address] Triglyceride [Mass/volume] i n Serum or PlasmaOrdered By: Jorge David on 10-10-2024 Triglyceride [Mass/Vol] 164 mg/dL High 0-149 [facility] Comment on above: TRIG ATP III CLASSIF ICATIONTRIG less than 150 mg/dL NormalTRIG 150-199 mg/dL Borderline highTRIG 200-500 mg/dL High TRIG greater than 500 mg/dL Very highStandard traceable to the Center for Disease Conrtrol and Prevention (CDC) test method. Urea nitrogen [Mass/volume] in Serum or PlasmaOrdered By: Jorge David on 10-10-2024 Urea nitrogen [Mass/Vol] 14 mg/dL 7- [facility] Comment on above: Performed By: #### E BS LIPID, EMP BMP #### [address] XR Pelvis and Hip - left 2 V iewson 06-03-2024 AP and lateral x-ray s left hip reviewed stable appearing joint space no acute osseous abnormalities this is my independent interpretation. MANUALLY TRANSCRIBED RESULTS [facility] Study observation (narrative) [facility] CT HIP LT WO CONTon 03-10-19 [...] Ricketts MD on 03/10/2024 5:58 PM Normal [facility] MR ARTHROGRAM HIP LT W CONTo n [...] Cornelius MD on 01/22/2024 9:49 PM Normal [facility] [place] MR/CT ARTHROGRAM HIP LT W INJon [...] Vera MD on 01/21/2024 3:00 PM Normal [facility] XR Pelvis and Hip - left 2 [...] TRANSCRIBED RESULTS [facility] Radiology Study observation (narrative) [facility] CNOVon 09-10-2023 CNOV Office Visit (GENAJITHN ) HENRIK MENJIVAR ([id number]) 1975 M Date Time Provider Department 09/10/23 [...] regular Wound: None Temperature: No Drains: No Krpata, Brad, MD 09/14/2023 2:54 PM Signed [facility] - HISTORY AND [...] no inguinal hernia found US - 08/15/23 Nfge-ic-dydrzuwm tendinosis adductor origin without tear or hyperemia. [...] Order(s):CONSULT TO PHYSICAL THERAPY [9032] Order #: [id number]: 1 FUTURE Prescriptions as of 09/14/2023 - montelukast (SINGULAIR) 10 mg tablet Take by mouth every 24 hours. - tamsulosin (FLOMAX) 0.4 mg - cetirizine (ZYRTEC) 10 mg tablet Problem List As Of Date: 09/10/2023 (None) Visit Notes: >> Sindhu Stephens MA Mon Sep 10, 2023 10:28 AM Status: Signed What is the reason for your visit today? Consult Who is your referring physician? None Are you having poor oral intake? NO Have you had unintention (more content not included)... Normal [facility] HIP LTon 08-15-2023 HIP LT * * [...] with mild hyperemia. No joint effusion. IMPRESSION: Tjdi-yz-inrdznsn tendinosis adductor origin without tear or hyperemia. Synovial thickening of the anterior hip joint with mild hyperemia. Process Coordinator: [facility] Transcribe Date/Time: Aug 15 2023 1:52P Dictated by : SARAH GARDNER MD This examination was interpreted and the report reviewed and electronically signed by: SARAH GARDNER MD on Aug 15 2023 1:58PM EST [id number] Normal [facility] Hip - lefton 08-15-2023 IMPRESSION: Fdiq-ga-fwryneqv tendinosis adductor origin without tear or hyperemia. Synovial thickening of the anterior hip joint with mild hyperemia. Process Coordinator: [facility] Transcribe Date/Time: Aug 15 2023 1:52P Dictated by : SARAH GARDNER MD This examination was interpreted and the report reviewed and electronically signed by: SARAH GARDNER MD on Aug 15 2023 1:58PM EST DIVISION OF RADIOLOGY * * *Final Report* * * DATE OF EXAM: Aug 15 2023 1:51PM AFU 1147 - HIP LT / PROCEDURE REASON: Left inguinal [...] No joint effusion. DIVISION OF RADIOLOGY Provider, [facility] - 08/15/2023 * * *Final Report* * * DATE OF EXAM: Aug 15 2023 1:51PM [facility] 1147 [facility] HIP LT / PROCEDURE REASON: Left inguinal [...] mild hyperemia. No joint effusion. IMPRESSION IMPRESSION: Pwpl-ws-zaswidah tendinosis adductor origin without tear or hyperemia. Synovial thickening of the anterior hip joint with mild hyperemia. Process Coordinator: [facility] Transcribe Date/Time: Aug 15 2023 1:52P Dictated by : SARAH GARDNER MD This examination was interpreted and the report reviewed and electronically signed by: SARAH GARDNER MD on Aug 15 2023 1:58PM EST [facility] Radiology Study observation (narrative) [facility] US Hip - leftOrdered By: Ccf Provider on 08-15-2023 [facility] CNPN Telephone (RULTTB) HENRIK MENJIVAR ([id number]) 1975 M Date Time Provider Department 07/11/23 [...] Appointment Note. Do not link order for [employer] Correct order has been routed. [...] exam on 08/15/23 : 1:35 PM at [facility]. Allergies As of Date: 07/11/2023 (Not on [...] Encounter Status:Closed by NATALIA UMANA on 07/11/23 [facility] CNOVon 07-10-2023 CNOV Office Visit (NELDA ) HENRIK MENJIVAR ([id number]) 1975 M Date Time Provider Department 07/10/23 [...] Filomena Arreola MD 07/10/2023 11:12 AM Signed [facility] - HISTORY AND [...] management Plan (more content not included)... Normal [facility] HISTORY PHYSICALon HISTORY PHYSICAL HNO ID: [id number] Author: FILOMENA ARREOLA MD Service: ? Author Type: Resident Type: H&P Filed: 07/10/2023 11:12 Note Text: [facility] Abdominal [facility] Health - HISTORY AND PHYSICAL Chief Complaint: [...] Surgery Resident, PGY-1 07/10/2023 10:23 AM Normal [facility] MRI PELVIS WO W CONon 2021 MRI [...] by: BRAD NEW Date: 2021-12-16 15:05 Normal [facility] CT ABD/PELV W CONon 06-18-19 CT ABD/PELV [...] BRAD NEW Date: 2021-06-17 16:50 Normal [facility] CBC AUTO DIFFon 06-07-2021 BASO # 0.0 103/ul Normal 0.0-0.1 [facility] Comment on above: Performed By: #### C BC #### [facility] [address] [place] [address] Dr. Gala Johnson Basophils/100 WBC (Bld) 0.6 % Normal 0.2-2.0 [facility] Comment on above: Performed By: #### C BC #### [facility] [address] [place] [address] Dr. Gala Johnson EO # 0.1 103/ul Normal 0.0-0.7 [facility] Comment on above: Performed By: #### C BC #### [facility] [address] [place] [address] Dr. Gala Johnson Eosinophils/100 WBC (Bld) 1.2 % Normal 0.9-7.0 [facility] Comment on above: Performed By: #### C BC #### [facility] [address] [place] [address] Dr. Gala Johnson Erythrocyte distribution width (RBC) [Ratio] 13.1 % Normal 11.0-15.0 [facility] Comment on above: Performed By: #### C BC #### [facility] [address] [place] [address] Dr. Gala Johnson Hematocrit (Bld) [Volume fraction] 49.3 % Normal 42.0-54.0 [facility] Comment on above: Performed By: #### C BC #### [facility] [address] [place] [address] Dr. Gala Johnson Hemoglobin (Bld) [Mass/Vol] 15.8 g/dL Normal 14.0-18.0 [facility] Comment on above: Performed By: #### C BC #### [facility] [address] [place] [address] Dr. Gala Johnson IG # 0.02 10e3/ul Normal 0.00-0.03 [facility] Comment on above: Performed By: #### C BC #### [facility] [address] [place] [address] Dr. Gala Johnson IG % 0.3 % Normal 0.0-0.5 [facility] Comment on above: Performed By: #### C BC #### [facility] [address] [place] [address] Dr. Gala Johnson LYMPH # 2.3 103/ul Normal 1.2-3.8 [facility] Comment on above: Performed By: #### C BC #### [facility] [address] [place] [address] Dr. Gala Johnson Lymphocytes/100 WBC (Bld) 33.5 % Normal 20.5-60.0 [facility] Comment on above: Performed By: #### C BC #### [facility] [address] [place] [address] Dr. Gala Johnson MANUAL DIFF REQ NO Normal [facility] Comment on above: Performed By: #### C BC #### [facility] [address] [place] [address] Dr. Gala Johnson MCH (RBC) [Entitic mass] 30.3 pg Normal 25.9-34.0 [facility] Comment on above: Performed By: #### C BC #### [facility] [address] [place] [address] [address] Gala Johnson MCHC (RBC) [Mass/Vol] 32.0 g/dL Normal 29.9-35.2 [facility] Comment on above: Performed By: #### C BC #### [facility] [address] [place] [address] [address] Gala Johnson MCV (RBC) [Entitic vol] 94.4 fL Critically high 80.0-94 .0 [facility] Comment on above: Performed By: #### C BC #### [facility] [address] [place] [address] [address] Gala Johnson MONO # 0.6 103/ul Normal 0.3-0.8 [facility] Comment on above: Performed By: #### C BC #### [facility] [address] [place] [address] Dr. Gala Johnson Monocytes/100 WBC (Bld) 8.3 % Normal 1.7-12.0 [facility] Comment on above: Performed By: #### C BC #### [facility] [address] [place] [address] Dr. Gala Johnson NEUT # 3.8 103/ul Normal 1.4-6.5 [facility] Comment on above: Performed By: #### C BC #### [facility] [address] [place] [address] Dr. Gala Johnson Neutrophils/100 WBC (Bld) 56.1 % Normal 43.0-75.0 [facility] Comment on above: Performed By: #### C BC #### [facility] [address] [place] [address] Dr. Gala Johnson Platelet mean volume (Bld) [Entitic vol] 11.9 fL Normal 9.5-13.5 [facility] Comment on above: Performed By: #### C BC #### [facility] [address] [place] [address] Dr. Gala Johnson PLT 246 103/ul Normal 150-450 [facility] Comment on above: Performed By: #### C BC #### [facility] [address] [place] [address] [address] Gala Johnson RBC 5.22 106/ul Normal 4.70-6.10 [facility] Comment on above: Performed By: #### C BC #### [facility] [address] [place] [address] Dr. Gala Johnson WBC 6.8 103/ul Normal 4.0-11.0 [facility] Comment on above: Performed By: #### C BC #### [facility] [address] [place] [address] Dr. Gala Johnson GLYCOHEMOGLOBIN A1Con 2021 ADA RECOMMENDATION SEE BELOW Normal [facility] Comment on above: Result Comment: ADA RECOMMENDED LIMIT 4.0 - 6.0 ADA THERAPEUTIC TARGET < 7.0 ACTION SUGGESTED > 7.0 Performed By: #### A 1C #### [facility] [address] [place] [address] Dr. Gala Johnson Glucose [Mass/Vol] 117 mg/dL Normal [facility] Comment on above: Performed By: #### A 1C #### [facility] [address] [place] [address] Dr. Gala Johnson HbA1c (Bld) [Mass fraction] 5.7 % Normal 4.5-6.2 [facility] Comment on above: Performed By: #### A 1C #### [facility] [address] [place] [address] Dr. Gala Johnson LIPID PROFILEon 06-07-2021 CHOL-HDL RATIO NORM SEE BELOW Normal [facility] Comment on above: Result Comment: 3.3 - 4.4 LOW RISK 4.4 - 7.1 AVERAGE RISK 7.1 - 11.0 MODERATE RISK >11.0 HIGH RISK Performed By: #### L IPID, TSH, CMP #### [facility] [address] [place] [address] Dr. Gala Johnson Cholesterol [Mass/Vol] 236 mg/dL Critically high <=200 [facility] Comment on above: Performed By: #### L IPID, TSH, CMP #### [facility] [address] [place] [address] Dr. Gala Johnson Cholesterol in HDL [Mass/Vol] 47 mg/dL Normal 40-60 [facility] Comment on above: Performed By: #### L IPID, TSH, CMP #### [facility] [address] [place] [address] [address] Gala Johnson Cholesterol in LDL [Mass/Vol] 134.0 mg/dL Normal [facility] Comment on above: Performed By: #### L IPID, TSH, CMP #### [facility] [address] [place] [address] [address] Gala Johnson Cholesterol.total/Angeilque sterol in HDL [Mass ratio] 5.0 {ratio} Normal [facility] Comment on above: Performed By: #### L IPID, TSH, CMP #### [facility] [address] [place] [address] [address] Gala Johnson HDL NORMAL > or = 60 mg/dl - LO W CARDIOVASCULAR RISK <40 mg/dl - HIGH CARDIOVASCULAR RISK Normal [facility] Comment on above: Performed By: #### L IPID, TSH, CMP #### [facility] [address] [place] [address] [address] Gala Johnson LDL CALC NORMAL SEE BELOW Normal [facility] Comment on above: Result Comment: <100 mg/dl OPTIMAL 100 - 129 mg/dl NEAR OR ABOVE OPTIMAL 130 - 159 mg/dl BORDERLINE HIGH 160 - 189 mg/dl HIGH >190 mg/dl VERY HIGH Performed By: #### L IPID, TSH, CMP #### [facility] [address] [address] [address] Gala Johnson Triglyceride [Mass/Vol] 275 mg/dL Critically high <=150 [facility] Comment on above: Performed By: #### L IPID, TSH, CMP #### [facility] [address] [address] [address] Gala Johnson VLDL CALC 55.0 mg/dL Normal [facility] Comment on above: Performed By: #### L IPID, TSH, CMP #### [facility] [address] [address] [address] Gala Johnson PROF 14(COMP METB)on 04-26-2 022 Albumin [Mass/Vol] 4.2 g/dL Normal 3.4-5.0 [facility] Comment on above: Performed By: #### L IPID, TSH, CMP #### [facility] [address] [address] [address] Gala Johnson Albumin/Globulin [Mass ratio] 1.2 {ratio} Normal [facility] Comment on above: Performed By: #### L IPID, TSH, CMP #### [facility] [address] [address] [address] Gala Johnson ALP [Catalytic activity/Vol] 72 U/L Normal 46-116 [facility] Comment on above: Performed By: #### L IPID, TSH, CMP #### [facility] [address] [place] [address] Dr. Gala Johnson ALT [Catalytic activity/Vol] 30 U/L Normal 16-63 [facility] Comment on above: Performed By: #### L IPID, TSH, CMP #### [facility] [address] [address] [address] Gala Johnson Anion gap [Moles/Vol] 11.7 mmol/L Normal [facility] Comment on above: Performed By: #### L IPID, TSH, CMP #### [facility] [address] [place] [address] Dr. Gala Johnson AST [Catalytic activity/Vol] 18 U/L Normal 15-37 [facility] Comment on above: Performed By: #### L IPID, TSH, CMP #### [facility] [address] [address] [address] Gala Johnson Bilirubin [Mass/Vol] 0.7 mg/dL Normal 0.2-1.0 [facility] Comment on above: Performed By: #### L IPID, TSH, CMP #### [facility] [address] [place] [address] Dr. Gala Johnson Calcium [Mass/Vol] 8.6 mg/dL Normal 8.5-10.1 [facility] Comment on above: Performed By: #### L IPID, TSH, CMP #### [facility] [address] [address] [address] Gala Johnson Chloride [Moles/Vol] 101 mmol/L Normal 98-107 [facility] Comment on above: Performed By: #### L IPID, TSH, CMP #### [facility] [address] [address] [address] Gala Johnson CO2 [Moles/Vol] 29.1 mmol/L Normal 21.0-32.[address] [facility] Comment on above: Performed By: #### L IPID, TSH, CMP #### [facility] [address] [address] [address] Gala Johnson Creatinine [Mass/Vol] 0.91 mg/dL Normal 0.70-1.30 [facility] Comment on above: Performed By: #### L IPID, TSH, CMP #### [facility] [address] [place] [address] Dr. Gala Johnson EGFR-AF SWISS >60 Normal >=[address] [facility] Comment on above: Performed By: #### L IPID, TSH, CMP #### [facility] [address] [place] [address] Dr. Gala Johnson EGFR-NON AF SWISS >60 Normal >=60 [facility] Comment on above: Performed By: #### L IPID, TSH, CMP #### [facility] [address] [place] [address] Dr. Gala Johnson Globulin (S) [Mass/Vol] 3.4 g/dL Normal [facility] Comment on above: Performed By: #### L IPID, TSH, CMP #### [facility] [address] [place] [address] Dr. Gala Johnson Glucose [Mass/Vol] 86 mg/dL Normal 74-106 [facility] Comment on above: Performed By: #### L IPID, TSH, CMP #### [facility] [address] [place] [address] Dr. Gala Johnson Potassium [Moles/Vol] 3.8 mmol/L Normal 3.5-5.1 [facility] Comment on above: Performed By: #### L IPID, TSH, CMP #### [facility] [address] [place] [address] Dr. Gala Johnson Protein [Mass/Vol] 7.6 g/dL Normal 6.1-8.2 [facility] Comment on above: Performed By: #### L IPID, TSH, CMP #### [facility] [address] [place] [address] Dr. Gala Johnson Sodium [Moles/Vol] 138 mmol/L Normal 136-145 [facility] Comment on above: Performed By: #### L IPID, TSH, CMP #### [facility] [address] [place] [address] Dr. Gala Johnson Urea nitrogen [Mass/Vol] 13.0 mg/dL Normal 7.0-18.0 [facility] Comment on above: Performed By: #### L IPID, TSH, CMP #### [facility] [address] [place] [address] Dr. Gala Johnson Urea nitrogen/Creatinine [Mass ratio] 14.3 mg/mg Normal [facility] Comment on above: Performed By: #### L IPID, TSH, CMP #### [facility] [address] [place] [address] Dr. Gala Johnson TSHon 06-07-2021 TSH 1.610 uIU/mL Normal 0.470-4.680 [facility] Comment on above: Performed By: #### L IPID, TSH, CMP #### [facility] [address] [place] [address] Dr. Gala Johnson TSH RANGE SEE BELOW Normal [facility] Comment on above: Result Comment: <0.3 4 UIU/ml HYPERTHYROID 0.34-5.60 UIU/ml EUTHYROID >5.60 UIU/ml HYPOTHYROID Performed By: #### L IPID, TSH, CMP #### [facility] [address] [place] [address] Dr. Gala Johnson UA RANDOM W/MICROSCOPICon BACTERIA NONE SEEN Normal NONE SEEN [facility] Comment on above: Performed By: #### U AMIC #### [facility] [address] [address] [address] Gala Johnson Bilirubin Ql (U) Negative Normal NEGATIVE [facility] Comment on above: Performed By: #### U AMIC #### [facility] [address] [address] [address] Gala Johnson CAST NONE SEEN Normal NONE SEEN [facility] Comment on above: Performed By: #### U AMIC #### [facility] [address] [address] [address] Gala Johnson Clarity (U) CLEAR Normal CLEAR [facility] Comment on above: Performed By: #### U AMIC #### [facility] [address] [address] [address] Gala Johnson Color (U) LT. YELLOW Normal YELLOW [facility] Comment on above: Performed By: #### U AMIC #### [facility] [address] [address] [address] Gala Johnson Crystals LM Nom (Urine sed) NONE SEEN Normal NONE SEEN [facility] Comment on above: Performed By: #### U AMIC #### [facility] [address] [address] [address] Gala Johnson Epithelial cells LM Ql (Urine sed) NONE SEEN Normal NONE SEEN /RARE [facility] Comment on above: Performed By: #### U AMIC #### [facility] [address] [place] [address] Dr. Gala Johnson Glucose Ql (U) Negative Normal NEGATIVE [facility] Comment on above: Performed By: #### U AMIC #### [facility] [address] [address] [address] Gala Johnson Hemoglobin Ql (U) Negative Normal NEGATIVE [facility] Comment on above: Performed By: #### U AMIC #### [facility] [address] [address] [address] Gala Johnson Ketones Ql (U) Negative Normal NEGATIVE [facility] Comment on above: Performed By: #### U AMIC #### [facility] [address] [place] [address] Dr. Gala Johnson LEUKOCYTES Negative Normal NEGATIVE [facility] Comment on above: Performed By: #### U AMIC #### [facility] [address] [place] [address] Dr. Gala Johnson MUCOUS NONE SEEN Normal NONE SEEN [facility] Comment on above: Performed By: #### U AMIC #### [facility] [address] [place] [address] Dr. Gala Johnson Nitrite Ql (U) Negative Normal NEGATIVE [facility] Comment on above: Performed By: #### U AMIC #### [facility] [address] [place] [address] Dr. Gala Johnson pH (U) 6.5 [pH] Normal 5-9 [facility] Comment on above: Performed By: #### U AMIC #### [facility] [address] [place] [address] Dr. Gala Johnson RBC NONE SEEN Abnormal 0-2 [facility] Comment on above: Performed By: #### U AMIC #### [facility] [address] [place] [address] Dr. Gala Johnson SPEC GRAVITY 1.010 Normal 1.005-<=1.02 5 [facility] Comment on above: Performed By: #### U AMIC #### [facility] [address] [place] [address] Dr. Gala Johnson UA PROTEIN Negative Normal NEGATIVE/ TRACE [facility] Comment on above: Performed By: #### U AMIC #### [facility] [address] [place] [address] Dr. Gala Johnson Urobilinogen Qn (U) 0.2 {Tarun'U}/dL Normal 0.2 - 1. 0 [facility] Comment on above: Performed By: #### U AMIC #### [facility] [address] [place] [address] Dr. Gala Johnson WBC NONE SEEN Normal NONE SEEN [facility] Comment on above: Performed By: #### U AMIC #### [facility] [address] [place] [address] Dr. Gala Johnson Covid-19 PCR (CVDTBH)on SARS-CoV-2 (COVID-19) RNA ABBY+probe Ql (Unsp spec) Not detected Normal NOT DETECTED [facility] Comment on above: Result Comment: When diagnostic testing is negative, the possibility of a false negative should be considered in the context of a patient's recent exposures and the presence of clinical signs and symptoms consistent with SARS-CoV-2. This test is not yet approved or cleared by the [place] Food and Drug Administration (FDA). This test was developed by [employer], [place], [place]. The performance characteristics of this test were validated by [facility]. The results are not intended to be used as the sole means for clinical diagnosis or patient management decisions. [facility] is authorized under Clinical Laboratory Improvement [...] for this test is supported by the [place] of Health and Human Service's declaration that [...] longer be used). Performed By: #### [facility] #### [facility] [address] [place] [address] Dr. Gala Johnson Vital Signs Date Time Vital Sign Value Performing Clinician Facility 11-04-2024 14:00-0400 Body height 172.72 cm mktg Work Phone: [facility] 11-04-2024 14:00-0400 Body mass index (BMI) [Ratio] 29.8 kg/m2 [employer] DO Work Phone: [facility] 11-04-2024 14:00-0400 Body weight 89.01 kg mktg Work Phone: [facility] 11-04-2024 14:00-0400 Diastolic blood pressure 95 mm[Hg] Luther Ball DO Work Phone: [facility] 11-04-2024 14:00-0400 Heart rate 108 /min Luther Ball DO Work Phone: [facility] 11-04-2024 14:00-0400 Respiratory rate 12 /min Luther Ball DO Work Phone: [facility] 11-04-2024 14:00-0400 Systolic blood pressure 157 mm[Hg] Luther Ball DO Work Phone: [facility] 08-25-2024 12:52-0400 Body height 172.7 cm Jeana Pierce MD Work Phone: [facility] 08-25-2024 12:52-0400 Body mass index (BMI) [Ratio] 29.19 kg/m2 Jeana Pierce MD Work Phone: [facility] 08-25-2024 12:52-0400 Body weight 87.09 kg Jeana Pierce MD Work Phone: [facility] [email or web address] [facility] 07-01-2024 12:27-0400 Body height 172.7 cm Jeana Pierce MD Work Phone: [facility] [email or web address] [facility] 07-01-2024 12:27-0400 Body mass index (BMI) [Ratio] 29.19 kg/m2 Jeana Pierce MD Work Phone: [facility] [email or web address] [facility] 07-01-2024 12:27-0400 Body weight 87.09 kg Jeana Pierce MD Work Phone: [facility] [email or web address] [facility] 06-03-2024 14:09-0400 Body height 172.7 cm Jeana Pierce MD Work Phone: [facility] [email or web address] [facility] 06-03-2024 14:09-0400 Body mass index (BMI) [Ratio] 29.19 kg/m2 Jeana Pierce MD Work Phone: [facility] 06-03-2024 14:09-0400 Body weight 87.09 kg Jeana Pierce MD Work Phone: [facility] 05-05-2024 10:55-0400 Body height 172.7 cm Jeana Pierce MD Work Phone: [facility] 05-05-2024 10:55-0400 Body mass index (BMI) [Ratio] 29.19 kg/m2 Jeana Pierce MD Work Phone: [facility] 05-05-2024 10:55-0400 Body weight 87.09 kg eJana Pierce MD Work Phone: [facility] 12-18-2023 13:34-0500 Body height 175.3 cm Jeana Pierce MD Work Phone: [facility] 12-18-2023 13:34-0500 Body mass index (BMI) [Ratio] 28.65 kg/m2 Jeana Pierce MD Work Phone: [facility] 12-18-2023 13:34-0500 Body weight 88 kg Jeana Pierce MD Work Phone: [facility] 09-10-2023 10:31-0400 Body height 172.7 cm Brad Hanna MD Work Phone: [facility] 09-10-2023 10:31-0400 Body mass index (BMI) [Ratio] 28.59 kg/m2 Brad Hanna MD Work Phone: [facility] 09-10-2023 10:31-0400 Body temperature 98.29 [degF] Brad Hanna MD Work Phone: [facility] 09-10-2023 10:31-0400 Body weight 85.28 kg Brad Hanna MD Work Phone: [facility] 09-10-2023 10:31-0400 Diastolic blood pressure 85 mm[Hg] Brad Hanna MD Work Phone: [facility] 09-10-2023 10:31-0400 Heart rate 75 /min Brad Hanna MD Work Phone: [facility] 09-10-2023 10:31-0400 Systolic blood pressure 140 mm[Hg] Brad Hanna MD Work Phone: [facility] 07-10-2023 10:06-0400 Body height 172.7 cm Luther Ann MD Work Phone: [facility] 07-10-2023 10:06-0400 Body mass index (BMI) [Ratio] 27.83 kg/m2 Luther Ann MD Work Phone: [facility] 07-10-2023 10:06-0400 Body temperature 97.59 [degF] Luther Ann MD Work Phone: [facility] 07-10-2023 10:06-0400 Body weight 83.01 kg Luther Ann MD Work Phone: [facility] 07-10-2023 10:06-0400 Diastolic blood pressure 82 mm[Hg] Luther Ann MD Work Phone: [facility] 07-10-2023 10:06-0400 Heart rate 84 /min Luther Ann MD Work Phone: [facility] 07-10-2023 10:06-0400 Systolic blood pressure 142 mm[Hg] Luther Ann MD Work Phone: [facility] 09-22-2022 14:15-0400 Body height 172.72 cm Luther Arturo Other [facility] Other 09-22-2022 14:15-0400 Body mass index (BMI) [Ratio] 27.52 kg/m2 Luther Ball Other [facility] Other 09-22-2022 14:15-0400 Body weight 82.1 kg Luther Ball Other [facility] Other 09-22-2022 14:15-0400 Diastolic blood pressure 81 mm[Hg] Luther Ball Other [facility] Other 09-22-2022 14:15-0400 Respiratory rate 12 /min Luther Nicolas Other [facility] Other 09-22-2022 14:15-0400 Systolic blood pressure 121 mm[Hg] Luther Nicolas Other [facility] Other Encounters Encounter Date Encounter Type Care Provider Facility Start: 11-04-2024 End: 11-04-2024 ambulatory Luther Nicolas DO Work Phone: [facility] Work Phone: Start: 11-04-2024 End: 11-04-2024 Patient encounter procedure Luther Nicolas DO -[facility] Work Phone: Start: 10-10-2024 End: 10-10-2024 ambulatory Luther Nicolas DO Work Phone: [facility] Work Phone: Start: 10-10-2024 End: 10-10-2024 Departed Referred Jorge David DO -[facility] [address] Work Phone: Start: 09-04-2024 End: 09-04-2024 Treatment Alejandra Lee [employer] Work Phone: [facility] Comment on above: Left hip pain (Prima ry Dx); Femoroacetabular impingement of left hip; Articular cartilage disorder of left hip Start: 09-02-2024 End: 09-02-2024 Treatment Lucy Fay [employer] [facility] Comment on above: Left hip pain (Prima ry Dx); Femoroacetabular impingement of left hip; Articular cartilage disorder of left hip Start: 08-29-2024 End: 08-29-2024 Treatment Alejandra Lee [employer] Work Phone: [facility] Comment on above: Left hip pain (Prima ry Dx); Femoroacetabular impingement of left hip; Articular cartilage disorder of left hip Start: 08-25-2024 End: 08-25-2024 Office outpatient visit 15 minutes Jeana Pierce MD Work Phone: [facility] Comment on above: Femoroacetabular imp ingement of left hip (Primary Dx) Start: 08-25-2024 End: 08-25-2024 ambulatory JEANA PIERCE [facility] Start: 07-29-2024 End: 07-29-2024 Treatment Alejandra Lee [employer] Work Phone: [facility] Comment on above: Left hip pain (Prima ry Dx); Femoroacetabular impingement of left hip; Articular cartilage disorder of left hip Start: 07-29-2024 End: 07-29-2024 Bamboo flowsheet Alejandralevi Lee [employer]GER Work Phone: [facility] Start: 07-29-2024 End: 07-29-2024 Bamboo flowsheet Alejandra Jesus [employer] Work Phone: [facility] Start: 07-22-2024 End: 07-22-2024 Treatment Alejandra Lee [employer]GER Work Phone: [facility] Comment on above: Left hip pain (Prima ry Dx); Femoroacetabular impingement of left hip; Articular cartilage disorder of left hip Start: 07-22-2024 End: 07-22-2024 Bamboo flowspreeti Alejandra Lee CAR SHAGGER Work Phone: [facility] Start: 07-22-2024 End: 07-22-2024 Bamboo flowsheet Alejandra Lee [employer]GER Work Phone: [facility] Start: 07-18-2024 [...] Start: 07-10-2024 End: 07-10-2024 Treatment Alejandra Lee [employer]GER Work Phone: [facility] Comment on above: Left hip pain (Prima ry Dx); Femoroacetabular impingement of left hip; Articular cartilage disorder of left hip Start: 07-10-2024 End: 07-10-2024 Bamboo flowsheet Alejandra Lee CAR SHAGGER Work Phone: [facility] Start: 07-10-2024 End: 07-10-2024 Bamboo flowsheet Alejandra Lee [employer] SHAGGER Work Phone: [facility] Start: 07-01-2024 End: 07-01-2024 Bamboo flowsheet Micheal Savage PT Work Phone: [facility] Start: 07-01-2024 End: 07-01-2024 Bamboo flowsheet Micheal Savage PT Work Phone: [facility] Start: 07-01-2024 End: 07-01-2024 Postop follow up visit related to original px Jeana Pierce MD Work Phone: [facility] Comment on above: [...] Start: 06-24-2024 End: 06-24-2024 Treatment Lucy Fay [employer] [facility] Comment on above: Left hip pain (Prima ry Dx); Femoroacetabular impingement of left hip; Articular cartilage disorder of left hip Start: 06-24-2024 End: 06-24-2024 Bamboo flowsheet Lucy Fay [employer] [facility] Start: 06-24-2024 End: 06-24-2024 Bamboo flowsheet Lucy Fay [employer] [facility] Start: 06-20-2024 End: 06-20-2024 [...] Start: 06-17-2024 End: 06-17-2024 Treatment Lucy Fay [employer] [facility] Comment on above: Left hip pain (Prima ry Dx); Femoroacetabular impingement of left hip; Articular cartilage disorder of left hip Start: 06-17-2024 End: 06-17-2024 Bamboo flowsheet Lucy Fay [facility] Start: 06-17-2024 End: 06-17-2024 Bamboo flowsheet Lucy Fay [employer] [facility] Start: 06-13-2024 End: 06-13-2024 [...] Start: 06-03-2024 End: 06-03-2024 Bamboo flowsheet Micheal Willis Hussein PT Work Phone: [facility] Start: 06-03-2024 End: 06-03-2024 Postop follow up visit related to original px Jeana Pierce MD Work Phone: [facility] Comment on above: Left hip pain (Prima ry Dx) Start: 06-03-2024 End: 06-03-2024 Evaluation Micheal Savage PT Work Phone: [facility] Comment on above: Left hip pain (Prima ry Dx); Femoroacetabular impingement of left hip; Articular cartilage disorder of left hip Start: 05-21-2024 End: 05-21-2024 Orders Only Kelly Uriarte RN [facility] Comment on above: Femoroacetabular imp ingement of left hip (Primary Dx); 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 Start: 05-21-2024 End: 05-21-2024 Evaluation and management of inpatient JEANA PIERCE [facility] Start: 05-15-2024 End: 05-15-2024 Orders Only Jeana Pierce MD Work Phone: [facility] Comment on above: Femoroacetabular imp ingement of left hip (Primary Dx) Start: 05-07-2024 End: 05-07-[address] [facility] Phone Call Provider 1 Eugene Gill [facility] Start: 05-07-2024 End: 05-07-2024 Evaluation and management of inpatient LUTHER NICOLAS [facility] Start: 05-05-2024 End: 05-05-2024 Office outpatient visit 25 minutes Jeana Pierce MD Work Phone: [facility] Comment on above: Femoroacetabular imp ingement of left hip (Primary Dx) Start: 05-05-2024 End: 05-05-2024 ambulatory [facility] Start: 03-07-2024 End: 03-07-2024 ambulatory [facility] Start: 01-23-2024 End: 01-23-2024 Telephone encounter Jeana Pierce MD Work Phone: [facility] Start: 01-21-2024 End: 01-21-2024 ambulatory [facility] Start: 12-18-2023 End: 12-18-2023 Office outpatient new 30 minutes Jeana Pierce MD Work Phone: [facility] Comment on above: Femoroacetabular imp ingement of left hip (Primary Dx); Left hip pain; Femoral acetabular impingement; Pain of left hip Start: 12-18-2023 Patient encounter status Cornell Nicolas DO Work Phone: [facility] Start: 12-18-2023 End: 12-18-2023 ambulatory [facility] Start: 10-26-2023 End: 10-26-2023 Bamboo flowsheet Alejandra Lee PTA Work Phone: [facility] Start: 10-26-2023 End: 10-26-2023 Bamboo flowspreeti Lee [employer] SHAGGER Work Phone: [facility] Start: 10-26-2023 End: 10-26-2023 ambulatory Alejandra Lee [employer] SH[employer]GER Work Phone: [facility] Comment on above: Right hip pain (Prim augusto Dx); Femoral acetabular impingement Start: 10-23-2023 End: 10-23-2023 ambulatory Lucy Fay [employer] [facility] Comment on above: Right hip pain (Prim augusto Dx); Femoral acetabular impingement Start: 10-23-2023 End: 10-23-2023 Bamboo flowsheet Lucy Fay [employer] [facility] Start: 10-23-2023 End: 10-23-2023 Bamboo flowsheet Lucy Fay [facility] Start: 10-19-2023 End: 10-19-2023 ambulatory Alejandra Lee [employer]GER Work Phone: [facility] Comment on above: Right hip pain (Prim augusto Dx); Femoral acetabular impingement Start: 10-18-2023 End: 10-18-2023 ambulatory Alejandra Lee CAR SHAGGER Work Phone: [facility] Comment on above: Right hip pain (Prim auugsto Dx); Femoral acetabular impingement Start: 10-18-2023 End: 10-18-2023 Bamboo lala Lee CAR SHAGGER Work Phone: [facility] Start: 10-18-2023 End: 10-18-2023 Bamboo flowspreeti Lee CAR SHAGGER Work Phone: [facility] Start: 10-12-2023 End: 10-12-2023 ambulatory Micheal Savage PT Work Phone: [facility] Comment on above: Right hip pain (Prim augusto Dx); Femoral acetabular impingement Start: 10-11-2023 End: 10-11-2023 ambulatory Micheal lAba Hussein PT Work Phone: [facility] Comment on above: Right hip pain (Prim augusto Dx); Femoral acetabular impingement Start: 10-11-2023 End: 10-11-2023 Bamboo flowsheet Micheal Savage PT Work Phone: [facility] Start: 10-11-2023 End: 10-11-2023 Bamboo flowsheet Micheal Willis Hussein PT Work Phone: [facility] Start: [...] Start: 09-10-2023 End: 09-10-2023 ambulatory BRAD HANNA Facility:[facility] Start: 09-10-2023 End: 09-10-2023 Patient encounter procedure Brad Hanna MD Work Phone: General Surgery Comment on above: Pain in left hip (Pr imary Dx) Start: 08-15-2023 End: 08-15-2023 ambulatory LUTHER ANN Facility:[facility] Start: 08-15-2023 End: 08-15-2023 Subsequent hospital visit by physician [facility] Rej Work Phone: Radiology Comment on above: Left inguinal pain [ R10.32] Start: 07-11-2023 Telephone encounter [facility] Comment on above: Appointment Left inguinal pain ( Primary Dx) Start: 07-10-2023 End: 07-10-2023 Patient encounter procedure Luther Ann MD Work Phone: General Surgery Comment on above: Left inguinal pain ( Primary Dx) Start: 07-10-2023 End: 07-10-2023 ambulatory LUTHER ANN Facility:[facility] Start: 09-29-2022 End: 09-29-2022 ambulatory Luther Nicolas Other [facility] Other Start: 09-29-2022 Telephone encounter Luther Nicolas [facility] Start: 09-25-2022 End: 09-25-2022 ambulatory Luther Nicolas Other [facility] Other Start: 09-25-2022 Encounter for genera l adult medical examination without abnormal findings Luther Nicolas [facility] Start: 09-25-2022 Telephone encounter Luther Nicolas [facility] Start: 09-22-2022 End: 09-22-2022 ambulatory Luther Nicolas Other [facility] Other Start: 09-22-2022 Encounter for genera l adult medical examination without abnormal findings Luther Nicolas [facility] Start: 09-22-2022 Periodic preventive med est patient 40-64yrs Luther Nicolas [facility] [facility] Start: 12-16-2021 End: 12-17-[address] LUTHER NICOLAS Facility:H1 Start: 06-17-2021 End: 06-18-[address] LUTHER NICOLAS Facility:[facility]1 Start: 06-09-2021 Encounter for genera l adult medical examination without abnormal findings DR LUTHER NICOLAS [facility] Start: 06-07-2021 End: 06-08-[address] LUTHER [...] MD Work Phone: Start: 12-18-2022 Colonoscopy Alejandra crandall CAR SHAGGER Work Phone: Start: 11-23-2022 Colonoscopy Micheal Will gs PT Work Phone: Start: 06-07-[address] SAINI IN MIDNIGHT Comment on above: Performed By: #### P [facility] #### [facility] [address] [place] [address] Dr. Gala Johnson Plan of Treatment Date Care Activity Detail Author Start: 12-18-2032 Screening for malign ant neoplasm of colon [facility] Start: 11-23-2032 Screening for malign ant neoplasm of colon [facility] Start: 08-25-2025 Adult BMI Screening Adult BMI Screen ing [facility] Start: 07-01-2025 Adult BMI Screening Adult BMI Screen ing [facility] Start: 07-01-2025 Tobacco Screening Tobacco Screening [facility] Start: 06-03-2025 Adult BMI Screening Adult BMI Screen ing [facility] Start: 05-21-2025 Adult BMI Screening Adult BMI Screen ing [facility] Start: 05-21-2025 Tobacco Screening Tobacco Screening [facility] Start: 05-07-2025 Tobacco Screening Tobacco Screening [facility] Start: 05-05-2025 Adult BMI Screening Adult BMI Screen ing [facility] Start: 05-05-2025 Tobacco Screening Tobacco Screening [facility] Start: 01-20-2025 Adult BMI Screening Adult BMI Screen ing [facility] Start: 12-17-2024 Adult BMI Screening Adult BMI Screen ing [facility] Start: 10-13-2024 Influenza vaccination P [facility] Start: 10-06-2024 End: 10-06-2024 Patient encounter procedure 10/06/2024 1:40 PM EDT Office Visit [facility] [address] [place] [address] Jeana Pierce MD [address] [place] [address] [facility] Start: 09-04-2024 End: 09-04-2024 ambulatory 09/04/2024 5:00 PM EDT Treatment [facility] [address] [place] [phone] Alejandra Lee, CAR SHAGGER [address] [place] [address] [facility] Start: 09-02-2024 End: 09-02-2024 ambulatory 09/02/2024 5:00 PM EDT Treatment [facility] [address] [place] [phone] Lucy Fay PTA [facility] Start: 08-25-2024 End: 08-25-2024 Patient encounter procedure 08/25/2024 12:55 PM EDT Office Visit [facility] [address] [place] [phone] Jeana Pierce MD [address] [place] [address] [facility] Start: 07-29-2024 End: 07-29-2024 ambulatory 07/29/2024 5:30 PM EDT Treatment [facility] [address] [place] [phone] Alejandra Lee, CAR SHAGGER [address] [place] [address] Arrived [facility] Comment on above: Arrived Start: 07-22-2024 End: 07-22-2024 ambulatory 07/22/2024 5:30 PM EDT Treatment [facility] [address] [place] [phone] Alejandra Lee, CAR SHAGGER [address] [place] [address] [facility] Start: 07-18-2024 End: 07-18-2024 ambulatory 07/18/2024 1:30 PM EDT Treatment [facility] [address] [place] [phone] Alejandra Lee, CAR SHAGGER [address] [place] [address] [facility] Start: 07-10-2024 End: 07-10-2024 ambulatory [facility] Comment on above: Left hip pain (Prima ry Dx) Start: 07-08-2024 End: 07-08-2024 ambulatory [facility] Start: 07-04-2024 End: 07-04-2024 ambulatory 07/04/2024 1:30 PM EDT Treatment [facility] [address] [place] [phone] Alejandra Lee, CAR SHAGGER [address] [place] [address] [facility] Start: 07-01-2024 End: 07-01-2024 Patient encounter procedure 07/01/2024 12:30 PM EDT Office Visit [facility] [address] [place] [phone] Jeana Pierce MD [address] [place] [address] [facility] Start: 07-01-2024 End: 07-01-2024 ambulatory [facility] Comment on above: Arrived Start: 06-27-2024 End: 06-27-2024 ambulatory 06/27/2024 1:00 PM EDT Treatment [facility] [address] [place] [phone] Micheal Savage, PT [address] [place] [place] [address] [facility] Start: 06-24-2024 End: 06-24-2024 ambulatory 06/24/2024 5:00 PM EDT Treatment [facility] [address] [place] [phone] Lucy Fay PTA [facility] Start: 06-20-2024 End: 06-20-2024 ambulatory [facility] Comment on above: Arrived Start: 06-17-2024 End: 06-17-2024 ambulatory 06/17/2024 5:00 PM EDT Treatment [facility] [address] [place] [phone] Lucy Fay PTA [facility] Start: 06-13-2024 End: 06-13-2024 ambulatory 06/13/2024 1:00 PM EDT Treatment [facility] [address] [place] [phone] Micheal Savage, PT [address] [place] [address] [facility] Start: 06-03-2024 End: 06-03-2024 Patient encounter procedure 06/03/2024 1:45 PM EDT Office Visit [facility] [address] [place] [phone] Jeana Pierce MD [address] [place] [address] [facility] Start: 06-03-2024 End: 06-03-2024 ambulatory 06/03/2024 9:00 AM EDT Evaluation [facility] [address] [place] [phone] Micheal Savage, PT [address] [place] [address] Arrived [facility] Comment on above: Arrived Start: 05-21-2024 End: 05-21-2024 Admission to same day surgery center 05/21/2024 11:45 AM EDT - 05/21/2024 2:15 PM EDT Surgery [facility] [address] 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 [place], [place] [phone] Jeana Pierce MD [address] [place], [place] [facility] Start: 05-07-2024 End: 05-07-2024 Admission to establishment 05/07/2024 9:30 AM EDT Support Visit [facility] On [address] [address] [facility] Start: 12-18-2023 End: 12-17-2024 Fluoroscopy MR/CT inj arthrogram hip left with guidance Fluoroscopy MR/CT inj arthrogram hip left with guidance Imaging Routine Femoral acetabular impingement Expected: 12/18/2023, Expires: 12/17/2024 Ela Work Phone: Comment on above: Expected: 12/18/2023 , Expires: 12/17/2024 Start: 12-18-2023 End: 12-17-2024 MR Hip - left Arthrogram MR arthrogram hip left with contrast Imaging Routine Femoral acetabular impingement Pain of left hip Expected: 12/18/2023, Expires: 12/17/2024 [facility] Comment on above: Expected: 12/18/2023 , Expires: 12/17/2024 Start: 10-26-2023 End: 10-26-2023 ambulatory [facility] Comment on above: Arrived Start: 10-23-2023 End: 10-23-2023 ambulatory 10/23/2023 3:00 PM EDT Treatment [facility] [address] [place] [address] Alejandra Lee, CAR SHAGGER [address] [place] [address] [facility] Start: 10-19-2023 End: 10-19-2023 ambulatory 10/19/2023 1:30 PM EDT Treatment [facility] [address] [place] [address] Alejandra Lee, CAR SHAGGER [address] [place] [address] [facility] Start: 10-18-2023 End: 10-18-2023 ambulatory [facility] Start: 10-14-2023 COVID-19 Vaccine ( season) COVID-19 Vaccine () [facility] [email or web address] [facility] Start: 10-14-2023 Influenza vaccination [facility] Start: 10-12-2023 End: 10-12-2023 ambulatory 10/12/2023 1:30 PM EDT Treatment [facility] [address] [place] [phone] Micheal Savage, PT [address] [place] [address] [facility] Start: 10-11-2023 End: 10-11-2023 ambulatory 10/11/2023 5:00 PM EDT Treatment [facility] [address] [place] [phone] Micheal Savage, PT [address] [place] [address] [facility] Start: 10-05-2023 End: 10-05-2023 ambulatory 10/05/2023 1:30 PM EDT Treatment [facility] [address] [place] [phone] Micheal Savage, PT [address] [place] [address] [facility] Start: 10-04-2023 End: 10-04-2023 ambulatory 10/04/2023 5:30 PM EDT Treatment [facility] [address] [place] [phone] Micheal Savage, PT [address] [place] [address] Arrived [facility] Comment on above: Arrived Start: 09-10-2023 End: 09-10-2023 Patient encounter procedure 09/10/2023 10:30 AM EDT Office Visit General Surgery [address] [address] Brad Hanna MD [address] [place] [address] groin pain General Surgery Comment on above: groin pain Start: 08-15-2023 End: 08-15-2023 Patient encounter procedure 08/15/2023 1:35 PM EDT Appointment Radiology [address] [place] [address] [facility] Comment on above: [facility] Start: 08-10-2023 End: 08-08-2024 US Pelvis limited [facility] Routine Left inguinal pain Expected: 08/10/2023, Expires: 08/08/[address] [facility] Work Phone: Comment on above: Expected: 08/10/2023 , Expires: 08/08/2024 Start: 02-12-2023 Behavioral Health Screening Behavioral Health Screening [facility] Start: 10-13-2022 Covid-19 Vaccine () Covid-19 Vaccine () [facility] Start: 2021 Diabetes Screening Diabetes Screenin g [facility] Start: 2021 Screening for malign ant neoplasm of colon [facility] Start: 12-09-2011 Lipid panel Lipid Screening [facility] Start: 12-09-1995 DTaP,Tdap and Td Vaccines (1 - Tdap) DTaP,Tdap and Td Vaccines (1 - Tdap) [facility] Start: 12-09-1995 Hepatitis B Vaccine (1 of 3 - 19+ 3-dose series) Hepatitis B Vaccine (1 of 3 - 19+ 3-dose series) [facility] Start: 12-09-1995 Urine microalbumin profile DTaP,Tdap,Td Vaccine (1 - Tdap) [facility] Start: 1994 Adult BMI Follow Up Plan Adult BMI Follow Up Plan [facility] Start: 1994 Anxiety Screening Anxiety Screening [facility] Start: 1994 Depression Screening Depression Scre ing [facility] Start: 1994 Hepatitis C screening Hepatitis C Sc reekim [facility] Start: 1994 HIV screening HIV Screening [facility] Start: 1988 Depression Screening Depression Scre ing [facility] Start: 1988 Tobacco Screening Tobacco Screening [facility] Start: 1976 Screening for malign ant neoplasm of colon [facility] Comprehensive metabo lic 1999 panel - Serum or Plasma [facility] Fibrin D-dimer [Presence] in Platelet poor plasma by Latex agglutination [facility] US Heart Transthoracic [facility] End: 08-09-2024 US Hip - left US HIP LEFT Radiology Routine Left inguinal pain 1 Occurrences starting 07/12/2023 until 08/09/[address] [facility] Work Phone: Comment on above: 1 Occurrences starti ng 07/12/2023 until 08/09/2024 XR Chest 2 Views [facility] Immunizations Immunization Date Immunization Notes Care Provider Fa griseldaty 10-10-2024 tetanus toxoid, redu margaux diphtheria toxoid, and acellular pertussis vaccine, adsorbed Luther Ball DO Work Phone: [facility] 12-12-2023 influenza, injectabl e, madin billy canine kidney, preservative free Luther Ball DO Work Phone: [facility] 12-12-2023 influenza, seasonal, injectable, preservative free Micheal Hussein PT Work Phone: [facility] 12-12-2023 influenza virus vaccine, unspecified formulation Jeana Pierce MD Work Phone: [facility] 12-03-2020 COVID-19 mRNA-1273 (Moderna) Luther Ball DO Work Phone: [facility] 03-11-2020 COVID-19 mRNA-1273 (Moderna) Luther Ball DO Work Phone: [facility] 02-11-2020 COVID-19 mRNA-1273 (Moderna) Luther Ball DO Work Phone: [facility] Payers Date Payer Category Payer Unknown [id number] 2022 Blue Cross [place] Managed Care - Other [id number] 2022 Blue Cross Blue Shield [id number] 2022 Private Health Insurance [id number] 2022 Unknown [id number] [id number] 2019 Unknown [id number] 1976 Unknown [id number] 2.16.840.1.052275.3.579.2.593 1976 Unknown [id number] 2.16.840.1.128570.3.579.2.593 1976 Unknown [id number] 2.16.840.1.904434.3.579.2.593 1976 Unknown [id number] 2.16.840.1.759022.3.579.2.593 1976 Unknown [id number] 2.16.840.1.350118.3.579.2.593 1976 Unknown [id number] 2.16.840.1.857675.3.579.2.1286 1976 Unknown [id number] 2.16.840.1.246721.3.579.2.1286 1976 Unknown [id number] 2.16.840.1.489504.3.579.2.1286 1976 Unknown [id number] 2.16.840.1.545872.3.579.2.1286 1976 Unknown [id number] 2.16.840.1.699334.3.579.2.1286 1976 Unknown [id number] 2.16.840.1.397843.3.579.2.1286 1976 Unknown [id number] 2.16.840.1.983623.3.579.2.1286 1976 Unknown [id number] 2.16.840.1.498867.3.579.2.1286 1976 Unknown [id number] 2.16.840.1.949740.3.579.2.1286 1976 Unknown [id number] 2.16.840.1.852022.3.579.2.1286 1976 Unknown [id number] 2.16.840.1.248168.3.579.2.1286 1976 Unknown [id number] 2.16.840.1.474778.3.579.2.1286 1959 Self-pay Unknown Vini RENEE/EVA [id number] Unknown [id number] [id number] Social History Date Type Detail Facility Start: 07-10-2023 End: 01-24-2024 Sex Assigned At [facility] Start: 07-10-2023 End: 01-11-2024 Tobacco smoking status NHIS Never smoked tobacco [facility] Start: 11-22-2022 End: 07-10-2023 Tobacco use and exposure Smokeless tobacco non-user [facility] Start: 07-10-2023 End: 01-24-2024 History of Social function [facility] National Score (1-100), lower number is lower risk 75 [facility] Start: 1975 Sex Assigned At Not on file [facility] Start: 11-22-2022 End: 01-24-2024 Alcoholic beverage intake Current drinker of alcohol (finding) [facility] Start: 1975 Sex assigned at Male [facility] Start: 11-21-2022 Gender identity Identifies as male gender (finding) [facility] Start: 11-21-2022 Sexual orientation Heterosexual (fin ding) [facility] Tobacco smoking status MTIS Tobacco smoking consumption unknown [facility] Work Phone: Start: 09-15-2014 Sex Male (finding) [facility] NEGATED: Highlighted rowStart: NINF History of tobacco use Passive smoker [facility] Clinical Notes 09-22-2022 to 08-25-2024 Jeana Pierce MD - 08/25/2024 12:55 PM Tal Savage, PT - 07/18/2024 7:30 AM Val Pierce MD - 07/01/2024 12:30 PM Tal Savage, PT - 07/01/2024 10:00 AM EDT Note Date & Type Note Facility 08-25-2024 History of Present illness Narrative [facility] [address] [facility] [address] Name: Henrik Menjivar : 1975 Chief Complaint [...] well. He recently spent some time in [place] where he did a lot of walking, [...] of the aforementioned history prepared by the [facility] practice provider, and I personally performed the [...] all questions answered.. [facility] of Present illness Narrative Images [...] hip pain/soreness last few days went to [place] for [facility] college orientation a lot of sitting and walk and long car ride, recovering over last couple days, better this a.m. 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 documented in this encounter [facility] 07-01-2024 History of Present illness [facility] [address] [facility] [address] Name: Henrik Menjivar : 1975 Chief Complaint [...] therapy twice a week. He occasionally takes qeya-ulb-wzzikar medication as needed. He is noticing improvements [...] addressed and answered. 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 documented in this encounter [facility] 06-03-2024 History of Present illness Narrative [facility] [address] [facility] [address] Name: Henrik Menjivar : 1975 Date of [...] weeks for reassessment. 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 Re-add PRN. Modalities: [...] sign below. Date: documented in this encounter [facility] 05-05-2024 History of Present illness Narrative Chief [...] all questions answered. documented in this encounter [facility] 01-23-2024 Miscellaneous Notes I spoke with the [...] surgical planning purposes. documented in this encounter [facility] 01-23-2024 Telephone encounter Note I spoke with [...] the left hip for surgical planning purposes. [facility] 12-18-2023 History of Present illness Narrative Chief Complaint: Chief Complaint Patient presents with Left Hip - New Patient [employer]ICE [employer] LEAD left hip pain 2 1/2 years, unaware of specific injury, MRI 2 years ago at [facility],, has done PT in past 10 sessions, no injections Subjective History Henrik Menjivar is a 48 y.o. male who presents to the office today for his left hip. Patient is a new patient to the practice. Patient has had pain in the left hip for 2-1/2 years. He denies any specific injury. 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 Concerns of potential labral tear due to WILBER. documented in this encounter [facility] 09-10-2023 Note HNO ID: [id number] Author: BRAD HANNA MD Service: ? Author Type: Physician Type: Progress Notes Filed: 09/14/2023 14:54 Note Text: [facility] - HISTORY AND [...] no inguinal hernia found US - 08/15/23 Jffj-oa-egwamjyh tendinosis adductor origin without tear or hyperemia. [...] with the resident. Signature: BRAD HANNA MD [facility] 09-10-2023 History of Present illness Narrative [facility] - HISTORY AND PHYSICAL Chief Complaint: Groin [...] no inguinal hernia found US - 08/15/23 Jspu-ey-kxtekezg tendinosis adductor origin without tear or hyperemia. [...] BRAD HANNA MD documented in this encounter [facility] 09-10-2023 Nurse Note What is the reason for your visit today? Consult Who is your referring physician? None Are you having poor oral intake? NO Have you had unintentional weight loss of 15 lbs/7 Kg in the last 3-6 months? NO Bowels: regular Wound: None Temperature: No Drains: No [facility] 09-10-2023 Nurse Note What is the reason for your visit today? Consult Who is your referring physician? None Are you having poor oral intake? NO Have you had unintentional weight loss of 15 lbs/7 Kg in the last 3-6 months? NO Bowels: regular Wound: None Temperature: No Drains: No documented in this encounter [facility] 07-11-2023 Telephone encounter Note Patient has been scheduled for their [facility] US exam on 08/15/23 : 1:35 PM at [facility]. [facility] 07-11-2023 Miscellaneous Notes Patient has been scheduled for their MSK US exam on 08/15/23 : 1:35 PM at [facility]. Called patient on July 11, 2023 at [...] Slot held: N/A documented in this encounter [facility] 07-11-2023 Telephone encounter Note Called patient on July 11, 2023 at 11:07 AM to schedule their MSK US exam. No answer, left VM, 1st attempt. Left VM stating MSK US department will call back. [facility] 07-11-2023 Telephone encounter Note Visit Type: ANY [...] of our three locations. Slot held: N/A [facility] 07-10-2023 Note HNO ID: [id number] Author: LUTHER ANN MD Service: ? Author [...] notes. Patient consented for study? Not applicable [facility] 07-10-2023 History of Present illness Narrative Consultation [...] study? Not applicable documented in this encounter [facility] 07-10-2023 History and physical note [facility] - HISTORY AND PHYSICAL Chief Complaint: Chronic [...] General Surgery Resident, PGY-1 07/10/2023 10:23 AM [facility] 07-10-2023 History and physical note [facility] Abdominal [facility] - HISTORY AND PHYSICAL Chief Complaint: [...] 07/10/2023 10:23 AM documented in this encounter [facility] 07-10-2023 Nurse Note What is the reason for your visit today? Consult Who is your referring physician? Dr. Ann Are you having poor oral intake? NO Have you had unintentional weight loss of 15 lbs/7 Kg in the last 3-6 months? NO Bowels: regular Wound: clean & dry Temperature: No Drains: No [facility] 07-10-2023 Nurse Note What is the reason for your visit today? Consult Who is your referring physician? Dr. Ann Are you having poor oral intake? NO Have you had unintentional weight loss of 15 lbs/7 Kg in the last 3-6 months? NO Bowels: regular Wound: clean & dry Temperature: No Drains: No documented in this encounter [facility] 09-25-2022 Evaluation note Encounter Date Diagnosis Assessment Notes Sep, Wellness examination (ICD-10 - Z00.00) [facility] Other 08-11-2023 Evaluation note* Encounter Date Diagnosis [...] low risk patient. Refer for screening colonoscopy [facility] Other Evaluation noteNo InformationNort Application [employer] Other Evaluation note* Diagnosis Left inguinal pain- Primary Abdominal pain, left lower quadrant documented [facility] this [facility] Diagnosis Left inguinal pain- Primary Abdominal pain, left lower quadrant documented in this encounter [facility]* Diagnosis Left inguinal pain Abdominal pain, left lower quadrant documented [facility] this [facility] Diagnosis Pain in left hip- Primary Pain in joint, pelvic region and thigh documented [facility] this encounter [facility] Diagnosis Right hip pain- Primary Pain in joint, pelvic region and thigh Femoral acetabular impingement documented in this encounter [facility]* Diagnosis Right hip pain- Primary Pain in joint, pelvic region and thigh Femoral acetabular impingement documented in this encounter [facility]* Diagnosis Right hip pain- Primary Pain in joint, pelvic region and thigh Femoral acetabular impingement documented in this encounter [facility]* Diagnosis Right hip pain- Primary Pain in joint, pelvic region and thigh Femoral acetabular impingement documented in this encounter [facility]* Diagnosis Right hip pain- Primary Pain in joint, pelvic region and thigh Femoral acetabular impingement documented in this encounter [facility]* Diagnosis Right hip pain- Primary Pain in joint, pelvic region and thigh Femoral acetabular impingement documented in this encounter [facility]* Diagnosis Right hip pain- Primary Pain in joint, pelvic region and thigh Femoral acetabular impingement documented in this encounter [facility]* Diagnosis Right hip pain- Primary Pain in joint, pelvic region and thigh Femoral acetabular impingement documented in this encounter [facility]* Diagnosis Femoroacetabular impingement of left hip- Primary Left hip pain Pain in joint, pelvic region and thigh Femoral acetabular impingement Pain of left hip Left hip pain Pain in joint, pelvic region and thigh documented in this encounter [facility]* Diagnosis 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- Primary 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 documented in this encounter [facility]* Diagnosis 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- Primary 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 documented in this encounter [facility]* Diagnosis Femoroacetabular impingement of left hip- Primary 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 documented in this encounter [facility] note* Diagnosis Left hip pain- Primary Pain in joint, pelvic region and thigh 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 documented in this encounter [facility] note* Diagnosis Left hip pain- Primary Pain in joint, pelvic region and thigh 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 documented in this encounter [facility]* Diagnosis Postoperative visit- Primary documented in this encounter [facility]* Diagnosis Left hip pain- Primary Pain in joint, pelvic region and thigh 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 documented in this encounter [facility] note* Diagnosis Femoroacetabular impingement of left hip- Primary documented in this encounter [facility]* Diagnosis Left hip pain- Primary Pain in joint, pelvic region and thigh 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 documented in this encounter [facility] HealthcareEvaluation noteNo assessment information availableMorrow County [facility] Work Phone: Evaluation note* Diagnosis Onset Date Resolution Status Admit Date Chest pain acute October 1:53pm Dyspnea acute October 1:53pm Murmur acute October 1:53pm [facility] Work Phone: History general Narrative - Reported* Type Description Date Medical History Allergic rhinitis due to pollen Medical History Gastro-esophageal reflux disease without esophagitis Medical History Benign prostatic hyperplasia wit h lower urinary tract symptoms Medical History Asthmatic bronchitis, mild inter mittent, uncomplicated [facility] Other InstructionsNot on filedocumented in this encounter [facility] SystemInstructionsNot on filedocumented in this encounter [facility] SystemInstructionsNot on filedocumented in this encounter [facility] SystemInstructions* Pre-Procedure Instructions - Rosalva Westbrook RN - 05/07/2024 9:30 AM EDT Your surgery/procedure is scheduled at [facility] on 05/21/2024 at 1145 am Tentative arrival time 915 am per surgeon instructions You will receive a phone call from [facility] the day beforeyour surgery to verify your arrival time. [address] [place] [address]. Park in Entrance D. Report to the registration desk in the main lobby. If you have any questions prior to surgery, you may call Pre-Admission Clinic at [phone] between 7:30 am and 4:30 pm Sunday through Sunday. If you have any concerns the morning of surgery, please call the Pre-op Department at [phone]. Notify your SURGEON if you develop any [...] weekly, hold 1 week prior to surgery: Ila . Blood thinners: Please contact your prescribing [...] dermal piercings),hair extensions that contain metal, nail finnish, make-up, and contact lens. If you received [...] RIGHTS AND RESPONSIBILITIES As a patient at [facility], you have the right to: Receive medical care and be informed of who is taking care of you Be treated with dignity and respect Have a family member/hospital insurance representative of choice and your physician notified of your admission Receive information and actively participate in decisions about your care and treatment Refuse care, treatment and services Decide who may provide your support and speak for you Access jehovah's witness and spiritual services Participate in ethical issues [...] of hospital charges and payment methods Patient/patient hospital insurance representative responsibilities are to: Provide information about health status to facilitate care, treatment and services Follow the treatment, plan, keep appointments and speak up when you do not understand the plan Respect the rights of other patients and healthcare personnel Follow organizational rules and regulations that support quality care and a safe environment Fulfill financial obligations as promptly as possible [facility] [email or web address] SystemInstructionsNot on filedocumented in this encounter [facility] [email or web address] SystemInstructionsNot on filedocumented in this encounter [facility] [email or web address] SystemInstructionsNot on filedocumented in this encounter [facility] SystemMiscellaneous Notes* Pre-Procedure Instructions - Rosalva Westbrook RN - 05/07/2024 9:30 AM EDT Your surgery/procedure is scheduled at [facility] on 05/21/2024 at 1145 am Tentative arrival time 915 am per surgeon instructions You will receive a phone call from [facility] the day beforeyour surgery to verify your arrival time. [address] [place] [address]. Park in Entrance D. Report to the registration desk in the main lobby. If you have any questions prior to surgery, you may call Pre-Admission Clinic at [phone] between 7:30 am and 4:30 pm Sunday through Sunday. If you have any concerns the morning of surgery, please call the Pre-op Department at [phone]. Notify your SURGEON if you develop any [...] dermal piercings),hair extensions that contain metal, nail finnish, make-up, and contact lens. If you received [...] RIGHTS AND RESPONSIBILITIES As a patient at [facility], you have the right to: Receive medical care and be informed of who is taking care of you Be treated with dignity and respect Have a family member/hospital insurance representative of choice and your physician notified of your admission Receive information and actively participate in decisions about your care and treatment Refuse care, treatment and services Decide who may provide your support and speak for you Access jehovah's witness and spiritual services Participate in ethical issues [...] of hospital charges and payment methods Patient/patient hospital insurance representative responsibilities are to: Provide information about health status to facilitate care, treatment and services Follow the treatment, plan, keep appointments and speak up when you do not understand the plan Respect the rights of other patients and healthcare personnel Follow organizational rules and regulations that support quality care and a safe environment Fulfill financial obligations as promptly as possible documented [facility] for referral (narrative)* Reason Referral for screeni ng colonoscopy Diagnosis 1 Screening for colon cancer (Z12.11) Referral Organization [facility] florent[facility] Referring Provider First Name Luther Referring Provider Last Name Arturo Referring Provider Specialty Internal Me dicine Referred Organization [facility] Referred Provider Dionisio Callejas Referred Address [address], [place],[address] Referred Provider Specialty Surgery Referral Priority Routine General Notes Dr. Menjivar is being referred for a screening colonoscopy. He is an asymptomatic, low risk patient. He denies family history for colon cancer or polyps. He denies change in appetite, weight or bowel habits. He denies abdominal pain, heartburn or dysphagia. He denies melena or hematochezia. [facility] Other Reason for referral (narrative)* Diagnostic Procedure Only (Routine) - Pending Review Specialty Diagnoses / Procedures Referred By Ge montes Referred To Contact US IMAGING Diagnoses Left inguinal pain Procedures US PELVIS LTD US PELVIC NONOBSTETRIC IMAGE DCMTN LIMITED/F/U Luther Ann MD [address] [place] [address] [place] [address] Referral ID Status Reason Start Date Expiration Date Visits Requested Visits Authorized [id number] Pending Review Auto-Generat ed Referral 08/10/2023 08/08/2024 1 1 [facility] for referral (narrative)* Diagnostic Procedure Only (Routine) - Pending Review Specialty Diagnoses / Procedures Referred By Contac t Referred To Contact US IMAGING Diagnoses Left inguinal pain Procedures US HIP LEFT US COMPL JOINT R-T W/IMAGE DOCUMENTATION Luther Ann MD [address] [id number] [id number] Referral ID Status Reason Start Date Expiration Date Visits Requested Visits Authorized [id number] Pending Review Auto-Generat ed Referral 07/12/2023 08/09/2024 1 1 [facility] for referral (narrative)* Diagnostic Procedure Only (Routine) - Closed Specialty Diagnoses / Procedures Referred By Contac t Referred To Contact US IMAGING Diagnoses Left inguinal pain Procedures US HIP LEFT US COMPL JOINT R-T W/IMAGE DOCUMENTATION Luther Ann MD [address] [place] [id number] [id number] Referral ID Status Reason Start Date Expiration Date V isits Requested Visits Authorized [id number] Closed Auto-Generate d Referral 07/12/2023 08/09/2024 1 1 [facility] for referral (narrative)No reason for referral information availableOhio[facility] Work Phone: [facility] Narrative* Diagnostic Procedure Only (Routine) - Closed Specialty Diagnoses / Procedures Referred By Contac t Referred To Contact US IMAGING Diagnoses Left inguinal pain Procedures US HIP LEFT US COMPL JOINT R-T W/IMAGE DOCUMENTATION Luther Ann MD [address] [place] [address] [place] [address] Referral ID Status Reason Start Date Expiration Date V isits Requested Visits Authorized [id number] Closed Auto-Generate d Referral 07/12/2023 08/09/2024 1 1 [facility] for visit Narrative* Rehabilitation - Outpatient (Routine) - Authorized Specialty Diagnoses / Procedures Referred By Contac t Referred To Contact Physical Therapy Diagnoses Other specified joint disorders, left hip Other articular cartilage disorders, left hip Procedures IA PHYSICAL THERAPY EVALUATION LOW COMPLEX 20 MINS Jeana Pierce MD [address] [place] [address] Phone: tel: fax: Micheal Savage, PT [address] [place] [address] Phone: tel: fax: Referral ID Status Reason Start Date Expiration Date Visits Requested Visits Authorized [id number] Authorized Consult and Treat 05/22/2024 11/18/2024 12 12 [facility] for [facility] Narrative* Rehabilitation - Outpatient (Routine) - Authorized Specialty Diagnoses / Procedures Referred By Contac t Referred To Contact Physical Therapy Diagnoses Other specified joint disorders, left hip Other articular cartilage disorders, left hip Procedures IA PHYSICAL THERAPY EVALUATION LOW COMPLEX 20 MINS Jeana Pierce MD [address] [place] [address] Phone: tel: fax: Micheal Savage, PT [address] [place] [address] Phone: tel: fax: Referral ID Status Reason Start Date Expiration Date Visits Requested Visits Authorized [id number] Authorized Consult and Treat 05/22/2024 02/11/2025 12 12 [facility] Narrative* Rehabilitation - Outpatient (Routine) - Closed Specialty Diagnoses / Procedures Referred By Contac t Referred To Contact Physical Therapy Diagnoses Other specified joint disorders, left hip Other articular cartilage disorders, left hip Procedures IA PHYSICAL THERAPY EVALUATION LOW COMPLEX 20 MINS Jeana Pierce MD [address] [place] [address] Phone: tel: fax: Micheal Savage, PT [address] [place] [address] Phone: tel: fax: Referral ID Status Reason Start Date Expiration Date V isits Requested Visits Authorized [id number] Closed Consult and Treat 05/22/2024 02/11/2025 12 12 [facility] HealthcareReason for visit Narrative* Rehabilitation - Outpatient (Routine) - Authorized Specialty Diagnoses / Procedures Referred By Ge t Referred To Contact Physical Therapy Diagnoses Other specified joint disorders, left hip Other articular cartilage disorders, left hip Procedures IA THERAPEUTIC PX 1/> AREAS EACH 15 MIN EXERCISES Jeana Pierce MD [address] [place] [address] Phone: tel: fax: Micheal Savage, PT [address] [place] [address] Phone: tel: fax: Referral ID Status Reason Start Date Expiration Date V isits Requested Visits Authorized [id number] Authorized 08/18/2024 10/19/2024 8 8 [facility] Healthcare Summary Purpose Family History Relationship Condition Age at Onset Recorded Date/T malu father Malignant neoplasm Unknown High blood cholesterol Unknown mother Hypertension Unknown History of stroke Unknown Migraine Unknown Advance Directives Advance Directive Response Recorded Date/ Time Advance Directives No December 11:21am Reason for Referral Specialty Diagnoses / Procedures Referred By Ge t Referred To Contact [facility] Diagnoses Pain in left hip Procedures CONSULT TO PHYSICAL THERAPY PHYSICAL THERAPY EVALUATION HIGH COMPLEX 45 MINS Brad Hanna MD [address] [place] [address] [facility] [address] [place] [id number] Referral ID Status Reason Start Date Expiration Date Visits Requested Visits Authorized [id number] Pending Review Auto-Generat ed Referral 09/10/2023 09/09/2024 1 1 Chief Complaint and Reason for Visit Chief Complaint Admit Date 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 October 10, 2024 8: 00am Chief Complaint Admit Date fpg 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 October 10, 2024 8: 00am intermittent chest pain Deanne 23rd, 2025 1:53pm Reason for Visit Admit Date Chest pain November 04, 2024 1:53pm Dyspnea November 04, 2024 1:53pm Murmur November 04, 2024 1:53pm Additional Source Comments (unrecognized sect ion and content) No Status Records FoundNo Status Records FoundNo Status Records FoundNo Status Records FoundNo Status Records FoundNo Status Records FoundNo Status Records Found INFORMATION SOURCE (unrecogn ized section and content) DATE CREATED AUTHOR 08/17/2020 [facility] DATE CREATED AUTHOR AUTHOR'S ORGANIZ ATION 12/23/2021 [facility] DATE CREATED AUTHOR AUTHOR'S ORGANIZ ATION 09/17/2023 [facility] DATE CREATED AUTHOR AUTHOR'S ORGANIZ ATION 03/12/2024 [facility] DATE CREATED AUTHOR AUTHOR'S ORGANIZ ATION 05/22/2024 [facility] DATE CREATED AUTHOR AUTHOR'S ORGANIZ ATION 08/29/2024 [facility] DATE CREATED AUTHOR AUTHOR'S ORGANIZ ATION 10/17/2024 [facility] REASON FOR VISIT (unrecogniz ed section and content) Reason Comments Consult Reason Comments Appointment Specialty Diagnoses / Procedures Referred By Contac t Referred To Contact Physical Therapy Diagnoses Lt hip pain Procedures IA PHYSICAL THERAPY EVALUATION HIGH COMPLEX 45 MINS Brad Hanna MD Micheal Savage, PT [address] [place] [address] Referral ID Status Reason Start Date Expiration Date V isits Requested Visits Authorized [id number] Authorized 09/20/2023 03/18/2024 20 20 Reason Comments New Patient [employer] left hip pain 2 1 /2 years, unaware of specific injury, MRI 2 years ago at [facility],, has done PT in past 10 sessions, no injections Reason Comments Pain Left hip scope sched uled for 05/21/24. Follow-up Left hip scope sched uled for 05/21/24. Reason Comments Post-op Fp left hip scope 05/21/24 PT started today Reason Comments Post-op Left hip scope 5 PT 2 times/week going well Reason Comments Follow-up Left hip scope 49/25 PT 2 times/week plus hep going well Source Comments (unrecognize d section and content) In the event this informatio n is protected by the Federal Confidentiality of Alcohol and Drug Abuse Patient Records regulations: The Federal rules restrict any use of the information to criminally investigate or prosecute any alcohol or drug abuse patient.[facility] Center[facility] the event this information is protected by the Federal Confidentiality of Alcohol and Drug Abuse Patient Records regulations: The Federal rules restrict any use of the information to criminally investigate or prosecute any alcohol or drug abuse patient.[facility] CenterIn the event this information is protected by the Federal Confidentiality of Alcohol and Drug Abuse Patient Records regulations: The Federal rules restrict any use of the information to criminally investigate or prosecute any alcohol or drug abuse patient.[facility] CenterIn the event this information is protected by the Federal Confidentiality of Alcohol and Drug Abuse Patient Records regulations: The Federal rules restrict any use of the information to criminally investigate or prosecute any alcohol or drug abuse patient.[facility] CenterIn the event this information is protected by the Federal Confidentiality of Alcohol and Drug Abuse Patient Records regulations: The Federal rules restrict any use of the information to criminally investigate or prosecute any alcohol or drug abuse patient.[facility] Care Teams (unrecognized sec tion and content) [employer] Relationship Specialty Start Date End Date Luther Nicolas MD [address] [phone] PCP - General 11/21/22 [employer] Relationship Specialty Start Date End Date Luther Nicolas MD [address] [place] [address] PCP - General 11/21/22 [employer] Relationship Specialty Start Date End Date Luther Nicolas MD [address] [place] [address] PCP - General 11/21/22 [employer] Relationship Specialty Start Date End Date Luther Nicolas MD [address] [place] [address] PCP - General 11/21/22 [employer] Relationship Specialty Start Date End Date Luther Nicolas MD [address] [place] [address] PCP - General 11/21/22 [employer] Access[employer] Mechan[employer] Relationship Specialty Start Date End Date Luther Nicolas MD [address] [place] [facility] [phone] PCP - General 11/21/22 [employer] Relationship Specialty Start Date End Date Luther Nicolas MD [address] [place] [facility] [phone] PCP - General 11/21/22 [employer] Relationship Specialty Start Date End Date Luther Nicolas MD [address] [place] [facility] [phone] PCP - General 11/21/22 [employer] Relationship Specialty Start Date End Date Luther Nicolas MD [address] [place] [facility] [phone] PCP - General 11/21/22 [employer] Relationship Specialty Start Date End Date Luther Nicolas MD [address] [place] [facility] [phone] PCP - General 11/21/22 [employer] Relationship Specialty Start Date End Date Luther Nicolas MD [address] [place] [facility] [phone] PCP - General 11/21/22 [employer] Relationship Specialty Start Date End Date Luther Nicolas MD [address] [place] [facility] [phone] PCP - General 11/21/22 [employer] Mechan[employer] Relationship Specialty [place] [address] [place] [id number] PCP - General Internal Medicine 10/16/23 [employer] Relationship Specialty Start Date End Date Luther Nicolas DO [address] [place] [id number] PCP - General Internal Medicine 10/16/23 [employer] Relationship Specialty Start Date End Date Luther Nicolas DO [address] [place] [id number] PCP - General Internal Medicine 10/16/23 [employer] Relationship Specialty Start Date End Date Luther Nicolas DO [address] [place] [phone] PCP - General Internal Medicine 10/16/23 [employer] Relationship Specialty Start Date End Date Luther Nicolas DO [address] [place] [id number] PCP - General Internal Medicine 10/16/23 [employer] Relationship Specialty Start Date End Date Luther Nicolas MD PCP - General 11/21/22 [employer] Access[employer] Relationship Specialty Start Date End Date Luther Nicolas MD PCP - General 11/21/22 [employer] Access[employer] Mechan[employer] Relationship Specialty Start Date End Date Luther Nicolas DO [address] [place] [phone] PCP - General Internal Medicine 10/16/23 [employer] Relationship Specialty Start Date End Date Luther Nicolas DO PCP - General 11/21/22 Aircraft Access[employer] Mechanic Relationship Specialty Start Date End Date Luther Nicolas DO PCP - General 11/21/22 Aircraft Access[employer] Relationship Specialty Start Date End Date Luther Nicolas DO PCP - General 11/21/22 Aircraft Access[employer] Mechanic Relationship Specialty Start Date End Date Luther Nicolas DO PCP - General 11/21/22 Aircraft Access[employer] Mechanic Relationship Specialty Start Date End Date Luther Nicolas DO PCP - General 11/21/22 Aircraft Access[employer] Mechanic Relationship Specialty Start Date End Date Luther Nicolas DO PCP - General 11/21/22 Aircraft Access[employer] Mechanic Relationship Specialty Start Date End Date Luther Nicolas DO PCP - General 11/21/22 Aircraft Access[employer] Relationship Specialty Start Date End Date Luther Nicolas DO PCP - General 11/21/22 Aircraft Access[employer] Mechanic Relationship Specialty Start Date End Date Luther Nicolas DO PCP - General 11/21/22 Aircraft Access[employer] Mechanic Relationship Specialty Start Date End Date Luther Nicolas DO [address] [place] [address] PCP - General Internal Medicine 10/16/23 Aircraft Access[employer] Relationship Specialty Start Date End Date Luther Nicolas DO PCP - General 11/21/22 [employer] Access[employer] Relationship Specialty Start Date End Date Luther Nicolas PCP General 11/21/22 Aircraft Access[employer] Mechanic Relationship Specialty Start Date End Date Luther Nicolas DO PCP General 11/21/22 Aircraft Accessories Mechanic Relationship Specialty Start Date End Date Luther Nicolas [facility] General 11/21/22 Aircraft Access[employer] Mechanic Relationship Specialty Start Date End Date Luther Nicolas [address] [place] [address] [facility] Internal Medicine 10/16/23 [employer] Relationship Specialty Start Date End Date Luther Nicolas [facility] 11/21/22 Team Status: Active Member Role Status Dates Luther Nicolas DO Primary Care Provider Active Team Status: Inactive Member Role Status Dates Luther Nicolas DO Primary Care Provider Active Start: October 10, 2024 End: October 10, 2024 Jorge David Jr, DO Attending Provider Active S tart: October 10, 2024 End: October 10, 2024 Team Status: Inactive Member Role Status Dates Luther Nicolas DO Primary Care Provider Active Start: November 04, 2024 End: November 04, 2024 Luther Nicolas DO Attending Provider Active Sta rt: November 04, 2024 End: November 04, 2024 Goals (unrecognized section and content) Goals [...] BE BASED ON THE PRIMARY CLINICAL RECORDS. [facility]. provides no warranty or guarantee of the accuracy or completeness of information in this document.
[2024-11-18 07:50] LABS: Hematocrit 40.9 % (42.0-54.0); Hemoglobin 12.4 g/dL (14.0-18.0); Immature Granulocytes Abs Auto 0.03 10^3/uL (0.00-0.03); Immature Granulocytes Pct Auto 0.5 % (0.0-0.5); Lymphocytes Absolute Auto 1.7 10^3/uL (1.2-3.8); Mean Corpuscular HGB Conc 30.3 g/dL (29.9-35.2); Mean Corpuscular Hemoglobin 23.1 pg (25.9-34.0); Mean Corpuscular Volume 76.3 fL (80.0-94.0); Platelet Count 300 10^3/uL (150-450); Red Blood Count 5.36 10^6/uL (4.70-6.10); Reticulocyte Pct Auto 2.98 % (0.60-3.10); White Blood Count 6.6 10^3/uL (4.0-11.0)
[2024-11-18 09:10] LABS: Iron 26.0 ug/dL (65.0-175.0); Percent Iron Saturation 6.5 %; Total Iron Binding Capacity 401.0 ug/dL (250.0-450.0)
[2024-11-18 09:52] LABS: Ferritin 33.0 ng/mL (26.0-388.0)
== END 2024-11-18 07:03 | disposition home or self-care (01) ==
LOC: LAB 07:02
PROVIDERS: PCP Internal Medicine; Visit Provider Internal Medicine
DX: R06.00 Dyspnea, unspecified (principal); Z00.00 Encounter for general adult medical examination without abnormal findings; D64.9 Anemia, unspecified; Z12.5 Encounter for screening for malignant neoplasm of prostate; R01.1 Cardiac murmur, unspecified; R07.9 Chest pain, unspecified
CPT/HCPCS: 36415; 82728; 83540; 83550; 85025; 85045; 93306

== ENCOUNTER 2024-12-11 07:59 | Outpatient (OUT) | payer OTHER, SELFPAY ==
--- OUTSIDE RECORDS SUMMARY | 2024-12-03 11:46 | XMS_ITS | Continuity of Care Document ---
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 Name Role Phone Luther Nicolas DO Primary Care Provider Jorge David Jr, DO Attending Provider [phone] Luther Nicolas DO Attending Provider Care Teams Patient Care Team Team Status: Active Member Role/Relationship Status Dates Luther Nicolas DO Primary Care Provider Active Visit Care Team Team Status: Inactive Member Role/Relationship Status Dates Luther Nicolas DO Primary Care Provider Active Start: October 10, 2024 End: October 10, 2024Edanalilia David Jr, DOAttending ProviderActiveStart: October 10, 2024 End: October 10, 2024 Visit Care Team Team Status: Inactive Member Role/Relationship Status Dates Luther Nicolas DO Primary Care Provider Active Start: November 04, 2024 End: November 04sho Nicolas DOAttending ProviderActiveStart: November 04, 2024 End: November 04, 2024 Patient Care Team Team Status: Active Member Role/Relationship Status Dates Luther Nicolas DO Primary Care Provider Active Start: November 18, 2024 Luther Nicolas DOAttending ProviderActiveStart: November 18, 2024 Patient Care Team Team Status: Inactive Member Role/Relationship Status Dates Luther Nicolas DO Primary Care Provider Active Start: December 03, 2024 End: December 03sho Nicolas DOAttending ProviderActiveStart: December 03, 2024 End: December 03, 2024 Chief Complaint and Reason for Visit Chief Complaint Admit Date fpg 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 October 10, 2024 8: 00am intermittent chest pain November 04, 2024 1:53pm Wellness December 03, 2024 2 :48pm Reason for Visit Admit Date Chest pain November 04, 2024 1:53pm Dyspnea November 04, 2024 1:53pm Asthma December 03, 2024 2 :48pm Benign prostatic hyperplasia with lower urinary tract symptoms December 03, 2024 2:48pm GERD (gastroesophageal reflux disease) O ctober 2024 2:48pm Iron deficiency anemia December 03 2:48pm Left hip impingement syndrome December 032024 2:48pm Screening PSA (prostate specific antigen ) December 03, 2024 2:48pm Wellness examination December 03, 2024 2:48pm Allergies, Adverse Reactions, Alerts Allergen Type Severity Reaction Last Updated Verified Status No Known Allergies Allergy Unknown December 03, 2024 3:06pmYesActive Social History Smoking Status Status Start Date End Date Date of Observa tion Never smoked tobacco (finding) January 11, 2024 10:28am Observation Status Observation Response Date of Response Legal Sex Male (finding) Sex Assigned At BirthMaleOctober 1975 Family History Relationship Condition Age at Onset Recorded Date/T malu father Malignant neoplasm Unknown High blood cholesterolUnknownmotherHypertensionUnknownHistory of strokeUnknown MigraineUnknown Problems Active Problems Problem Diagnosis/Recorded Date Onset Date Status C omments Screening PSA (prostate specific antigen) January 03, 2024 6:46pm Unknown Active PSA: 1.58 - 12/2022, 1.59 - 12/2023, 1.46 - 10/2024 Left hip impingement syndrome January 11, 2024 12:18pm Unknown Active DyspneaSeptember 2024 2:30pmUnknownActiveEcho: LVEF 55%, normal RV size/function - 11/2024Wellness examinationNov2023 2:09pmUnknown ActiveBenign prostatic hyperplasia with lower urinary tract symptomsNovember 2023 12:10amUnknownActiveIron deficiency anemiaOctober 2024 5:28pm UnknownActiveGERD (gastroesophageal reflux disease)January 09, 2024 12:10am UnknownActiveChest painSeptember 2024 2:30pmUnknownActiveAsthmaNovember 2023 12:09amUnknownActive Medications Medication Status Dose Units Route Directions Qty Days Refills S tart Date Stop Date End Date Reason(s) Instructions Adherence Tamsulosin 0.4 mg capsule Discontinued 0 .ROUTE.TXAWXWV680Vaebef2023 8:39amAugu2024 8:11amTAKE 1 CAPSULE BY MOUTH EVERY DAY FOR 90 DAYSMontelukast 10 mg eyacjkPjqndbokvwgb09RCAYKpnac December 17, 2023 1:00amNovember 2023 9:45pmMontelukast 10 mg tabletActive 0.ROUTE.CJWYMHH263Egbkmgnp2023 9:45pmTAKE 1 TABLET BY MOUTH EVERYDAY AT BEDTIMEComplies with drug therapyTamsulosin 0.4 mg capsuleActive0.ROUTE.COMPLEX 2024 8:11amTAKE 1 CAPSULE BY MOUTH EVERY DAY FOR 90 DAYSComplies with drug therapyAlbuterol Sulfate 90 mcg/actuation HFA aerosol inhalerActive2 PUFFINHALATIONEvery 6 hours as needed for shortness of breath or wheezing8.5302 November 10, 2024 8:47amComplies with drug therapyTamsulosin 0.4 mg capsule Discontinued0.4MGPODailyAugust 2023 12:00amA2023 8:39amAlbuterol Sulfate 90 mcg/actuation HFA aerosol inhalerDiscontinuedINHALATIONJanuary 02, 2024 1:00amSeptember 2024 8:47amTelmisartan 20 mg sxgoukAvydqx52BFWVMfexu 89161Ofuifja 2024 12:00amComplies with drug therapy Immunizations Immunization Event Date Not Given 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 Number Reason(s) Given Vaccine Information Statement (VIS) Detail Administration Location COVID-19 mRNA-1273 (Moderna) February 11, 2020 [id number] mRNA-1273 (Moderna)March [id number] mRNA-1273 (Moderna)December [id number], injectable, MDCK, pfOctober [id number], Diphtheria, Pertussis (Tdap)October [id number] Relevant Diagnostic Tests and/or Laboratory Data Laboratory Results Test Collection Date/Time Result Date/Time Result Interpretation Reference Range Result Comment Performing Site Thyroid Stimulating Hormone 3rd Gen November 04, 2024 3:04pm November 04, 2024 3:04pm 1.168 u[iU]/mL 0.358-3.740Troponin I High SensitivityNovember 04, 2024 3:04pmSe2024 3:04pm8.3 pg/mL4.0-76.1CUT-OFF POINTS HAVE BEEN ESTABLISHED BASED ON THE FOURTHUNIVERSAL DEFINITION OF MYOCARDIAL INFARCTION. THE UPPERREFERENCE LIMIT (URL) OF TROPONIN, DEFINED THE 99THPERCENTILE OF cTnI DISTRIBUTION IN A REFERENCE POPULATION,HAS BEEN CONFIRMED THE DECISION THRESHOLD FOR MIDIAGNOSIS.99TH PERCENTILE = 76.2 PG/MLNOTE: HIGH-SENSITIVITY TROPONIN ASSAY IS NOT INTENDED TO BEUSED IN ISOLATION BUT SHOULD BE INTERPRETED IN CONJUNCTIONWITH OTHER DIAGNOSTIC AND CLINICAL INFORMATION.Anion GapSept2024 3:04pmSept2024 3:04pm10.7Prostate Specific Antigen Screen November 04, 2024 3:04pmNovember 04, 2024 3:04pm1.46 ng/mL<=4.00D-Dimer Quantitative (PE/DVT)November 04, 2024 3:04pmpt2024 3:04pm0.19 mg/L FEU<=0.59Increases in D-Dimer concentration observed withthromboembolic events can be variable due to localization,size, and age of the thrombus. Therefore, a thromboembolicevent cannot be diagnosed with certainty on the basis of thereference range. D-Dimers may also be elevated for a varietyof disorders including advanced age, , coronarydisease, cancer, liver disease, infection, inflammation,hematoma, DIC, trauma, post-surgery, diabetes, thrombolyticor anticoagulant therapy, stress, and generalizedhospitalization. Basophils # (Auto)November 04, 2024 3:04pmSept2024 3:04pm0.0 10 3/uL0.0-0.1FerritinOctober 2024 7:43amOct2024 7:43am33.0 ng/mL 26.0-388.0Iron SaturationOct2024 7:43amOctober 2024 7:43am6.5 % Percent Reticulocyte CountOct2024 7:43amOctober 2024 7:43am2.98 % 0.60-3.10Basophils # (Auto)November 18, 2024 7:43amOctober 2024 7:43am0.0 10 3/uL0.0-0.1Albumin/Globulin RatioSeptember 2024 3:04pmSeptember 2024 3:04pm1.0Basophils (%) (Auto)November 04, 2024 3:04pmSeptember 2024 3:04pm0.5 %0.2-2.0Iron LevelOct2024 7:43amOctober 2024 7:43am26.0 ug/dLBelow low ezlweo33.0-175.0Basophils (%) (Auto)November 18, 2024 7:43amOctober 2024 7:43am0.5 %0.2-2.0AlbuminSeptember 2024 3:04pm November 04, 2024 3:04pm3.8 g/dL3.4-5.0Eosinophils # (Auto)November 04, 2024 3:04pmSeptember 2024 3:04pm0.1 10 3/uL0.0-0.7Total Iron Binding CapacityNovember 18, 2024 7:43amOctober 2024 7:28hc669.0 ug/dL250.0-450.0 Eosinophils # (Auto)November 18, 2024 7:43amOctober 2024 7:43am0.1 10 3/uL 0.0-0.7Alkaline PhosphataseSeptember 2024 3:04pmSeptember 2024 3:04pm84 U/K41-226Yranuotrgzo (%) (Auto)November 04, 2024 3:04pmSeptember 2024 3:04pm0.9 %0.9-7.0Eosinophils (%) (Auto)November 18, 2024 7:43am November 18, 2024 7:43am1.8 %0.9-7.0Alanine Aminotransferase (ALT/SGPT)November 04, 2024 3:04pmSept2024 3:04pm33 U/P32-35RqmnssmfseBlmtiqlfa 23rd, 2025 3:04pmSept2024 3:04pm35.9 %Below low qspsxi21.0-54.0 HematocritOctober 2024 7:43amOctober 2024 7:43am40.9 %Below low normal 42.0-54.0Aspartate Amino Transf (AST/SGOT)November 04, 2024 3:04pmSept2024 3:04pm21 U/K00-02SliccdmfqtEkkewthco 23rd, 2025 3:04pmSept2024 3:04pm10.9 g/dLBelow low .0-18.0HemoglobinOct2024 7:43am November 18, 2024 7:43am12.4 g/dLBelow low yrkxlo97.0-18.0BUN/Creatinine Ratio November 04, 2024 3:04pmSept2024 3:04pm11.8Immature Granulocyte # (Auto)November 04, 2024 3:04pmSept2024 3:04pm0.02 10 3/uL 0.00-0.03Immature Granulocyte # (Auto)November 18, 2024 7:43amOctober 2024 7:43am0.03 10 3/uL0.00-0.03Blood Urea NitrogenSept2024 3:04pm November 04, 2024 3:04pm13.0 mg/dL7.0-18.0Immature Granulocyte % (Auto) November 04, 2024 3:04pmSept2024 3:04pm0.4 %0.0-0.5Immature Granulocyte % (Auto)November 18, 2024 7:43amOctober 2024 7:43am0.5 %0.0-0.5 Calcium LevelSept2024 3:04pmSept2024 3:04pm8.6 mg/dL 8.5-10.1Lymphocytes # (Auto)November 04, 2024 3:04pmSeptember 2024 3:04pm1.7 10 3/uL1.2-3.8Lymphocytes # (Auto)November 18, 2024 7:43amOctober 2024 7:43am1.7 10 3/uL1.2-3.8Chloride LevelSept2024 3:04pmSeptember 2024 3:79oo271 mmol/P08-378Lufpzcemtzb (%) (Auto)November 04, 2024 3:04pmSeptember 2024 3:04pm29.8 %20.5-60.0Lymphocytes (%) (Auto)November 18, 2024 7:43amOctober 2024 7:43am26.2 %20.5-60.0Carbon Dioxide Level November 04, 2024 3:04pmSeptember 2024 3:04pm24.6 mmol/L21.0-32.0Mean Corpuscular HemoglobinSeptember 2024 3:04pmSeptember 2024 3:04pm22.2 pgBelow low qijjao47.9-34.0Mean Corpuscular HemoglobinOctober 2024 7:43am November 18, 2024 7:43am23.1 pgBelow low .9-34.0CreatinineSeptember 2024 3:04pmSeptember 2024 3:04pm1.10 mg/dL0.70-1.30Mean Corpuscular Hemoglobin ConcentSeptember 2024 3:04pmSeptember 2024 3:04pm30.4 g/dL29.9-35.2Mean Corpuscular Hemoglobin ConcentOctober 2024 7:43amOctober 2024 7:43am30.3 g/dL29.9-35.2Estimated GFR ()November 04, 2024 3:04pmSeptember 2024 3:04pm>60>=60 mL/min/1.73m 2Mean Corpuscular VolumeSeptember 2024 3:04pmSeptember 2024 3:04pm73.3 fL Below low commzd16.0-94.0Mean Corpuscular VolumeOctober 2024 7:43amOctober 2024 7:43am76.3 fLBelow low qbwkuh90.0-94.0Estimated GFR (Non- AmericanSeptember 2024 3:04pmSeptember 2024 3:04pm>60>=60 mL/min/1.73m 2Monocytes # (Auto)November 04, 2024 3:04pmSeptember 2024 3:04pm0.4 10 3/uL0.3-0.8Monocytes # (Auto)November 18, 2024 7:43amOctober 2024 7:43am0.7 10 3/uL0.3-0.8GlobulinSeptember 2024 3:04pmSeptember 2024 3:04pm3.7 g/dLMonocytes (%) (Auto)November 04, 2024 3:04pmSeptember 2024 3:04pm7.8 %1.7-12.0Monocytes (%) (Auto)November 18, 2024 7:43am November 18, 2024 7:43am10.7 %1.7-12.0Glucose LevelSeptember 2024 3:04pm November 04, 2024 3:43qw323 mg/dLAbove high -661Ipwu Platelet Volume November 04, 2024 3:04pmSeptember 2024 3:04pm10.7 fL9.5-13.5Mean Platelet VolumeOctober 2024 7:43amOctober 2024 7:43am10.7 fL9.5-13.5 Potassium LevelSeptember 2024 3:04pmSeptember 2024 3:04pm3.3 mmol/L Below low normal3.5-5.1Neutrophils # (Auto)November 04, 2024 3:04pmSept2024 3:04pm3.4 10 3/uL1.4-6.5Neutrophils # (Auto)November 18, 2024 7:43am November 18, 2024 7:43am4.0 10 3/uL1.4-6.5Sodium LevelSept2024 3:04pmSeptember 2024 3:45cv468 mmol/LBelow low veeofe367-076Uxnonaebhgk (%) (Auto)November 04, 2024 3:04pmSept2024 3:04pm60.6 %43.0-75.0 Neutrophils (%) (Auto)November 18, 2024 7:43amOctober 2024 7:43am60.3 % 43.0-75.0Total BilirubinSept2024 3:04pmSeptember 2024 3:04pm 0.6 mg/dL0.2-1.0Platelet CountSeptember 2024 3:04pmSeptember 2024 3:92us046 10 3/kM445-812Bfamgahl CountOctober 2024 7:43amOctober 2024 7:11rj369 10 3/hQ391-869Qsnsv ProteinSept2024 3:04pmSept2024 3:04pm7.5 g/dL6.4-8.2Red Blood CountSeptember 2024 3:04pmSeptember 2024 3:04pm4.90 10 6/uL4.70-6.10Red Blood CountOctober 2024 7:43am November 18, 2024 7:43am5.36 10 6/uL4.70-6.10Red Cell Distribution Width November 04, 2024 3:04pmSept2024 3:04pm17.1 %Above high normal 11.0-15.0Red Cell Distribution WidthOctober 2024 7:43amOctober 2024 7:43am22.3 %Above high .0-15.0Corrected White Blood CountSeptember 2024 3:04pmSeptember 2024 3:04pm5.7 10 3/uL4.0-11.0Corrected White Blood CountOctober 2024 7:43amOctober 2024 7:43am6.6 10 3/uL4.0-11.0Glucose LevelAugust 2024 10:412024 4:05pm93 mg/dP48-008IjiyflsknDetwiler [facility] [id number] [address] [place] [id number] Urea NitrogenAugust 2024 10:412024 4:05pm14 mg/dL7-25[facility] [id number] [address] [place] [id number] 10:412024 4:05pm1.05 mg/dL0.70-1.30[facility] [id number] [address] [facility] [address]Mlvopahmm GFR (CKD-EPI)October 10, 2024 10:2024 4:05pm> 60.0 mL/MinDetwiler Memorial Hospital Ctr [id number] [address] [place] [id number] LevelAugust 2024 10:2024 4:05pm 137 mmol/Y506-448KqqzbtipoDetwiler Memorial Hospital [facility]tr [id number] [address] [place] [id number] LevelAugust 2024 10:2024 4:05pm4.6 mmol/L3.5-5.1F[facility] [id number] [address] [place] [id number] LevelAugust 2024 10:2024 4:05pm 105 mmol/L83-183FvcbnssuhDetwiler Memorial Hospital Ctr [id number] [address] [place] [id number] Dioxide LevelAugust 2024 10:2024 4:05pm25.7 mmol/L21.0-31.0[facility] [id number] [address] [facility] [address]Nhxqf GapAugust 2024 10:2024 4:05pm10.9 mEq/L6.0-15.0[facility] [id number] [address] [facility] [address]Xowoiwg LevelAugust 2024 10:412024 4:05pm 9.4 mg/dL8.6-10.3FSelect [facility] [id number] [address] [facility] [address]Gbfnacsecdc LevelAugust 2024 10:412024 4:03dr006 mg/dLAbove high -473Ukiv less than 200 mg/dl low riskChol 201-239 mg/dl borderline riskChol 240 mg/dl and greater high riskDetwiler Memorial Hospital Ctr [id number] [address] [facility] [address]RLW CholesterolAugust 2024 10:2024 4:05pm46 mg/tG66-36TJC CHOL ATP-III CLASSIFICATION Cardiovascular RiskHDL > or equal to 60 mg/dL LOWHDL < 40 mg/dL HIGHDetwiler Memorial Hospital Ctr [id number] [address] [facility] [address]Vuccwbxmigjvf ReflexAugust 2024 10:412024 4:67ie325 mg/dLAbove high normal0-149TRIG ATP III CLASSIFICATIONTRIG less than 150 mg/dL NormalTRIG 150-199 mg/dL Borderline highTRIG 200-500 mg/dL High TRIG greater than 500 mg/dL Very highStandard traceable to the Center for Disease Co nrtrol and Prevention (CDC) test method.[facility] [id number] [address] [facility] [address]MDH Cholesterol, CalculatedAugust 2024 10:412024 4:46ij853 mg/dLAbove high normal0-100LDL ATP III CLASSIFICATIONLDL less than 100 mg/dL OptimalLDL 100-129 mg/dL Near or above aaqbaaxBTD350-822 mg/dL Borderline highLDL 160-189 mg/dL HighLDL greater than 189 mg/dL Very high [facility] [id number] [address] [facility] [address]YUTX CholesterolAugust 2024 10:41amAugust 2024 4:05pm32 mg/dLDetwiler Memorial Hospital [facility] [id number] [address] [facility] [address]Xjjebhzprat/HDL RatioAugust 2024 10:41amAugu2024 4:05pm4.5<5.0[facility] [id number] [address] [facility] [address]Pbqkseeo Creatinine Clearance (ChemAugust 2024 10:41am October 10, 2024 4:05pmN/AFSelect [facility] [id number] [address] [facility] [address] Vital Signs Vital Reading Result Reference Range Collection Date/Time Height 68 [in_i] November 04, 2024 2:21psOmpocv31.01 kgSeptember 2024 2:00pmHeart Rate 108 /lyo03-848Nogcdyhzu 2024 2:00pmRespiratory rate12 /smg35-67Bdrudietg 2024 2:00pmBP Xvkxdcfc360 mm[Hg]100-140September 2024 2:00pmBP Ekgtxujqn73 mm[Hg]60-100September 2024 2:00pmBMI (Body Mass Index)29.8 kg/c5Cmviproyp 2024 2:06jaEpueci00 [in_i]December 03, 2024 3:12pmWeight 90.77 kgOctober 2024 3:12pmHeart Rate87 /wte27-615Avmgxty 2024 3:12pmRespiratory rate12 /fue84-64Bgivhdv 2024 3:12pmBP Cfvtxbav858 mm[Hg] 100-140October 2024 3:12pmBP Uothhvgxo93 mm[Hg]60-100October 2024 3:12pmBMI (Body Mass Index)30.4 kg/t0Rulnlql 2024 3:12pm Advance Directives Advance Directive Response Recorded Date/ Time Advance Directives No December 11:21am Insurance Providers Guarantor Henrik Tannerr Address [address] [facility] [place] [address]Nkqzwyp Info.Home Phone: Coverage Status Update:2024 Payer Group Member ID Coverage Type Subscriber Relationship to Subscriber Effective Date Expiration Date O [id number] Kody Naderer Id: [id number] [address] [facility] [address] Home Phone: Email: [email or web address] TechnologyHoward RENEE/EVA [id number] Kody Naderer Id: [id number] [address] [facility] [place] [address] Home Phone: Email: [email or web address] Encounters Encounter Location(s) Arrival/Admit Date Discharge/Departure Date Discharge/Departure Disposition Provider(s) Departed [facility] [address] October 10, 2024 8:00am October 10, 2024 8:01am Discharged to home care or self care (routine discharge) Jorge David DO Departed Physician/ Provider Office Visit -[facility] November 04, 2024 1:53pm November 04, 2024 2:39pm Discharged to home care or self care (routine discharge) Luther Nicolas DO Non-patient / Non-visit -[facility] O ctober 2024 7:43am MATILDA Nagyeparted Physician/Provider [facility] 2:48pmOctober 2024 3:44pmDischarged to home care or self care (routine discharge)Luther Nicolas DO Recent Diagnosis Onset Date Admit Date Chest pain Unknown November 04, 2024 1:53pm Dyspnea Unknown November 04, 2024 1:53pm Asthma Unknown December 03 2:48pm Benign prostatic hyperplasia with lower urinary tract symptoms Unknown December 03, 2024 2:48pm GERD (gastroesophageal reflux disease) Unknown December 03, 2024 2:48pm Iron deficiency anemia Unknown November 132024 2:48pm Left hip impingement syndrome Unknown Oc tober 2024 2:48pm Screening PSA (prostate specific antigen) Unknow n December 03, 2024 2:48pm Wellness examination Unknown November 2:48pm Assessments Diagnosis Onset Date Resolution Status Admit Date Chest pain acuteSeptember 2024 1:53pmDyspneaacuteSeptember 2024 1:53pmAsthma acuteOctober 2024 2:48pmBenign prostatic hyperplasia with lower urinary tract symptomsacuteOctober 2024 2:48pmGERD (gastroesophageal reflux disease)acuteOctober 2024 2:48pmIron deficiency anemiaacuteOctober 2024 2:48pmLeft hip impingement syndromeacuteOctober 2024 2:48pmScreening PSA (prostate specific antigen)acuteOctober 2024 2:48pmWellness examinationacuteOctober 2024 2:48pm Plan of Treatment Author Luther Nicolas [facility] CenterAuthoredOctober 2024 3:09pmI have instructed this patient on the recommended lifestyle changes, which includes a low fat, high fiber diet along with a regular exercise routine. I have also reviewed the recommended age-appropriate preventive testing for this patient. I have also reviewed the recommended vaccines for their age and risk factors. Stable w/ occasional use of OMEGA for exercise, seasonal changes/allergies and URI No ER/hospital visits for AE I have instructed this patient to avoid lying flat after eating.?? I have also recommended to avoid eating 2 hours prior to bedtime.?? They were also informed that smaller, frequent meals may be better tolerated. I have discussed additional treatment options for persistent symptoms, which includes: weight loss, H2 blockers and PPI. I have also instructed them to notify the office with any pain or difficulty swallowing. Symptoms tolerable Continue Flomax without interruption s/p arthroscopy 05/2024 I have recommended yearly PSA testing. I have informed him that the PSA can be elevated w/ cancer, infection and enlarged prostates. I have explained to the patient, that If his PSA is elevated, while there are many causes, referral will be recommended to r/o cancer. He would be referred to Urology, who may recommend an MRI, TRUS/bx or possibly continued monitoring. He is agreeable to this plan of action Stopped NSAIDs and initiated Fe supplementation. f/u Hgb improved Last scope 12/2022 Author Luther Nicolas [facility] CenterAuthoredSeptember 2024 9:53pmRecently developed dyspnea w/ normal daily activities. Recent arthroscopy of the right hip w/ minimal time of inactivity. No lower extremity edema, negative Charles's sign. Nonsmoker, mild intermittent asthma. - rare use of OMEGA - recent use of OMEGA prior to exercise has not improved his endurance or dyspnea CXR to r/o infiltrate, fluid or mass Echocardiogram to r/o myocarditis w/ depressed LVEf DDimer to r/o PE Troponin to r/o ACS Associated w/ low intensity exercise, walking uphill or climbing stairs CXR to r/o infiltrate, fluid or mass Echocardiogram to r/o myocarditis w/ depressed LVEf DDimer to r/o PE Troponin to r/o ACS Future Tests Future scheduled test information is unavailable Pending Tests Test Name Ordered Date Scheduled Date Comprehensive Metabolic Panel November 04 2:36pm XR chest 2V*November 04, 2024 2:30pmECH echo transthoracicSept2024 2:31pm Future Visits Future appointment information is unavailable Future Procedures Procedure Name Ordered Date Scheduled Date Troponin I High Sensitivity November 04, 2024 2:36pm PSA Screen (Yearly Only)November 04, 2024 2:36pm Future Medications Future medication information is unavailable Patient Instructions Patient instructions are unavailable
--- NOTE | 2024-12-11 08:01 | CT_ITS ---
The [address] [address] Patient Name: SAMSON MENJIVAR MRN: [id number] date: 1975 Sex: M Assigned Patient Location: CT Current Patient Location: CT Accession/Order Number: [id number] Exam Date: 12/11/2024 08:15 Report Date: 12/11/2024 11:33 At the request of: MILANA MORRIS DO Procedure: CT soft tissue neck w con CT SOFT TISSUE NECK WITH CONTRAST CLINICAL DATA: Supraclavicular swelling for the past few weeks. COMPARISON: None Spiral images were obtained through the neck following 100 mL of Omnipaque 300. Markers were placed at the sites of palpable concern. This CT exam was performed using one or more following dose reduction techniques: Automated exposure control, adjustment of the mA and/or kV according to patient size, or use of iterative reconstruction technique. No thyroid nodularity is noted. The submandibular and parotid glands appear symmetric. No enlargement of the adenoids or tonsils is seen. The epiglottis and vocal cords are within normal limits. The airway is patent throughout its course with normal appearance of the mucosal surfaces. No prevertebral soft tissue swelling is seen. There are shotty cervical lymph nodes. The largest are in the jugulodigastric region bilaterally with short axis dimension up to 9 mm. There is no supraclavicular lymphadenopathy in the area is marked as palpable. The bony structures within the cshbi-ds-neto show no significant abnormalities. The imaged paranasal sinuses and mastoid air cells are clear. The upper imaged lungs show no contributory findings. CT/CT soft tissue neck w con IMPRESSION: NO CERVICAL LYMPHADENOPATHY OR OTHER ACUTE FINDINGS. Impression dictated by: Allegra Tapia M.D. 12/11/2024 11:33 AM Dictation Location: [place] [address] Electronically authenticated by: [id number] Y Date: 12/11/2024 11:33
--- OUTSIDE RECORDS SUMMARY | 2024-12-11 08:02 | XMS_ITS | Clinical Summary ---
Author Organization [facility] Healthcare Address [address] [place] [address] Care Team Providers Care Dredge [place] Hand Name Role Phone Luther Nicolas DO Primary Care Provider Allergies No known active allergies Medications MedicationSigDispense QuantityRefillsLast FilledStart DateEnd DateStatus tamsulosin (Flomax) 0.4 MG 24 hr capsule Active Singulair 10 MG tablet Active cetirizine (ZyrTEC ALLERGY) 10 MG tablet Active Active Problems ProblemNoted DateDiagnosed DateArticular cartilage disorder of left hip 06/03/2024Left hip pain09/27/2023Femoral acetabular mkqjvimrwie48/15/2024 Encounter for screening for malignant neoplasm of colon11/22/2022 Immunizations ImmunizationAdministration DatesNext DueInfluenza, seasonal, injectable, preservative free12/12/2023 Family History Medical HistoryRelationNameCommentsProstate cancerFatherBreast cancerNeg HxColon cancerNeg HxOvarian cancerNeg HxRelationNameStatusCommentsFatherAliveMotherAlive Social History Tobacco UseTypesPacks/DayYears UsedDateSmoking Tobacco: NeverSmokeless Tobacco: NeverAlcohol UseStandard Drinks/WeekCommentsYes1 (1 standard drink = 0.6 oz pure alcohol)Sex and Gender InformationValueDate RecordedSex Assigned at BirthMale 11/21/2022 10:54 PM EDTLegal BhhHqlv7509/27/2022 2:44 PM EDTGender IdentityMale 11/21/2022 10:54 PM EDTSexual OhkukzflmvcGpqxxrgj14/10/2023 10:54 PM EDT Last Filed Vital Signs Vital SignReadingTime TakenCommentsBlood Mtsgommn809/8611/22/2022 3:27 PM EDT Pulse--Temperature--Respiratory Rate--Oxygen Saturation--Inhaled Oxygen Concentration--Yphhyx17.6 kg (180 lb)11/22/2022 3:27 PM AIQIitwyh960.7 cm (5' 8 )11/22/2022 3:27 PM EDTBody Mass Index27.371 3:27 PM EDT Plan of Treatment Health MaintenanceDue DateLast DoneCommentsCT Ppqklraunxri64/27/1977FIT-DNA 1976FIT1976FOBT1976 5905Aleilyvhspyfe01/27/1977MMR Vaccines (1 of 1 - Standard series)1977DTaP/Tdap/Td Vaccines (1 - Tdap)12/09/1983Hepatitis B Vaccines (1 of 3 - 19+ 3-dose series)12/09/1995Pneumococcal Vaccine: Pediatrics (0 to 5 Years) and At-Risk Patients (6 to 64 Years) (1 of 2 - PCV) 12/09/1995COVID-19 Vaccine (4 - season), 03/11/2020, 02/11/2020Influenza Vaccine (#1)4Colonoscopy12/18/2032 12/18/2022, 12/18/2022, 3Colorectal Cancer Kfvfddijz03/06/2033HIB VaccinesAged OutNo longer eligible based on patient's age to complete this topic HPV VaccinesAged OutNo longer eligible based on patient's age to complete this topicHepatitis A VaccinesAged OutNo longer eligible based on patient's age to complete this topicIPV VaccinesAged OutNo longer eligible based on patient's age to complete this topicMeningococcal B VaccineAged OutNo longer eligible based on patient's age to complete this topicMeningococcal VaccineAged OutNo longer eligible based on patient's age to complete this topicRotavirus VaccinesAged Out No longer eligible based on patient's age to complete this topic Insurance Care Teams Team MemberRelationshipSpecialtyStart DateEnd Date Luther Nicolas DO PCP - Bcggjfd53/10/23
--- OUTSIDE RECORDS SUMMARY | 2024-12-11 08:04 | XMS_ITS | CCD ---
Author Organization [facility] Care Team Providers Care Tubing Drier Name Role Phone ARTURO, DR CORTÉS Admitting Unavailable BALL, DR CORTÉS Attending Unavailable BALL, DR CORTÉS Primary Care Unavailable BALL, DR CORTÉS Consulting Unavailable ARTURO, DR CORTÉS Primary Care Unavailable BALL, DR CORTÉS Admitting Unavailable BALL, DR CORTÉS Attending Unavailable SHAQ, DR BRAD Galvan Consulting Unavailable ARTURO, DR CORTÉS Consulting Unavailable BALL, DR CORTÉS [...] MAYRA Attending Unavailable ALEXANDRO, MAYRA Consulting Unavailable Luther Morris Unavailable Unavailable Primary Care Provider UnavailLUTHER White Attending Unavailable BRAD HANNA Attending Unavailable Luther Morris MD Primary Care Provider PIERCE, JEANA K Referring Unavailable LUTHER MORRIS Primary Care Unavailable PIERCE, JEANA K Referring Unavailable LUTHER MORRIS Primary Care Unavailable PIERCE, JEANA K Referring Unavailable LUTHER MORRIS Primary Care Unavailable Luther Morris DO Primary Care Provider LUTHER MORRIS Referring Unavailable LUTHER MORRIS Primary Care Unavailable PIERCE, JEANA K Admitting Unavailable PIERCE, JEANA K Attending Unavailable PIERCE, JEANA K Referring Unavailable LUTHER MORRIS Primary Care Unavailable Luther Morris MD Primary Care Provider Luther Morris DO Primary Care Provider KARI, JEANA K Attending Unavailable LUTHER MORRIS Referring Unavailable LUTHER MORRIS Primary Care Unavailable PIERCE, JEANA K Referring Unavailable LUTHER MORRIS Primary Care Unavailable PIERCE, JEANA K Attending Unavailable LUTHER MORRIS Referring Unavailable BALL, LUTHER E Primary Care [...] Unavailable BALL, LUTHER E Primary Care Unavailable Ball Luther JACOBSON Primary Care Provider [phone] Jorge David DO Attending Provider [phone] Malatz Jr, Edanalilia Attending Unavailable Joann Jr, Edward Admitting Unavailable Luther Morris Primary Care Unavailable Luther Morris DO Attending Provider [phone] ARTURO LUTHER Primary Care Physician [phone] Oren GIBSON Attending Unavailable LUTHER MORRIS Referring Unavailable Allergies Allergy ClassificationReported Allergen(s)Allergy TypeDate of OnsetReaction(s) Facility (1 source)No Known Medication Allergies; Translations: [No Known Medication Allergies]Propensity to adverse reactions (disorder)[facility] Medications Current Medications MedicationDrug Class(es)DatesSig (Normalized)Sig (Original)acetaminophen 500 mg oral tablet (2 sources)acetaminophen (TYLENOL EXTRA STRENGTH) 500 mg tablet Take 1 tablet (500 mg total) by mouth as needed for pain. Activeacetaminophen 325 mg / HYDROcodone bitartrate 5 mg oral tablet (1 source)Opioid AgonistStart: 05-21-2024 End: 53-05-6596NCZBDcbxvwq-acetaminophen (NORCO) 5-325 mg per tablet Indications: Post-operative pain Take 1-2 tablets by mouth every 6 (six) hours as needed for pain for up to 5 days. Max Daily Amount: 8 tablets 40 tablet 05/21/2024 05/26/2024 ActiveAlbuterol (9 sources)beta2-Adrenergic AgonistStart: 81-21-4899evpt 2 puff(s) by inhalation every six hoursAlbuterol (Eqv-ProAir HFA) 2 puff(s), Inhalation, q6hr Shortness of breath or wheezing, Refill(s) 0Start Date: 11/21/24 Status: Ordered Repeat number: 1Start: 93-59-2553usgy 1 puff(s) by inhalation every six hours as needed for wheezingAlbuterol Sulfate 90 mcg/actuation HFA aerosol inhaler Active 2 PUFF INHALATION Every 6 hours as needed for shortness of breath or wheezing 8.5 30 2 November 10, 2024 8:47am Complies with drug therapyStart: 01-02-2024 End: 28-37-8321Gnflswugd Sulfate 90 mcg/actuation HFA aerosol inhaler Discontinued INHALATION January 02, 2024 1:00am November 10, 2024 8:47am take 2 puff(s) by inhalation every four hours as needed for coughAlbuterol Sulfate HFA 108 (90 Base) MCG/ACT 2 puffs Inhalation every 4 hrs as needed for cough or SOB for 30 days PRN Activetake 1 puff(s) by inhalation every four hours as neededAlbuterol Sulfate HFA 108 (90 Base) MCG/ACT 1 puff as needed Inhalation every 4 hrs PRN Activeaspirin 81 mg delayed release oral tablet (3 sources)Platelet Aggregation Inhibitor, Nonsteroidal Anti-inflammatory Drug Start: 05-21-2024 End: 28-73-7094kukp 1 tablet by mouth in the morningaspirin 81 mg Take 1 tablet (81 mg total) by mouth in the morning and 1 tablet (81 mg total) beforebedtime. Do all this for 30 days. To start after aspirin 325 mg complete. 60 tablet 05/21/2024 06/20/2024 ActiveStart: 05-21-2024 End: 19-16-3025cbjc 1 tablet by mouth in the morning, then take 1 tablet by mouth at bedtimeaspirin 325 mg EC tablet Take 1 tablet (325 mg total) by mouth in the morning and 1 tablet (325 mg total) before bedtime. Do all this for 4 days. Take this while taking indomethacin. 8 tablet 05/21/2024 05/25/2024 Active cetirizine hydrochloride 10 mg oral tablet (20 sources)Histamine-1 Receptor Antagonistcetirizine (ZyrTEC ALLERGY) 10 MG tablet Activeesomeprazole 40 mg delayed release oral capsule (1 source)Proton Pump InhibitorStart: 82-88-0475fubn 1 capsule by mouth once dailyNexium 40 mg Cap-EC 40 mg = 1 cap(s), Oral, Daily, Refills(s) 0 Start Date: 12/05/24 Status: Ordered Repeat number: 1ferrous sulfate 325 mg oral tablet (1 source)Start: 69-23-2889isyl 1 tablet by mouth once dailyferrous sulfate 325 mg Tab 325 mg = 1 tab(s), Oral, Daily, Refills(s) 0 Start Date: 12/05/24 Status: Ordered Repeat number: 1indomethacin 75 mg extended release oral capsule (4 sources)Nonsteroidal Anti-inflammatory DrugStart: 34-97-3200zgru 1 capsule by mouth at mealtimeindomethacin SR (INDOCIN SR) 75 mg CR capsule Take 1 capsule (75 mg total) by mouth in the morning.With food. 4 capsule 05/21/2024 Active montelukast 10 mg oral tablet (20 sources)Leukotriene Receptor AntagonistStart: 95-68-6674nmzw 1 tablet by mouth once dailySingulair 10 mg Tab 10 mg = 1 tab(s), Oral, Daily, Refills(s) 0 Start Date: 11/21/24 Status: Ordered Repeat number: 1Start: 16-78-8231zpvd 1 tablet by mouth once daily at bedtimeMontelukast 10 mg tablet Active 0 .ROUTE .COMPLEX 90 3 December 17, 2023 9:45pm TAKE 1 TABLET BY MOUTH EVERYDAY AT BEDTIME Complies with drug therapyStart: 12-17-2023 End: 36-81-0833wroq 1 tablet by mouth once dailyMontelukast 10 mg tablet Discontinued 10 MG PO Daily December 17, 2023 1:00am December 17, 2023 9:45pm Start: 41-36-4479lqjtqsqvmdq (SINGULAIR) 10 mg tablet Take by mouth every 24 hours. 0 10/08/2021 Activenaproxen 500 mg oral tablet (2 sources)Nonsteroidal Anti-inflammatory DrugStart: 05-21-2024 End: 26-74-3646zksq 1 tablet by mouth in the morning, then take 1 tablet by mouth at mealtimenaproxen (NAPROSYN) 500 mg tablet Take 1 tablet (500 mg total) by mouth in the morning and 1 tablet(500 mg total) in the evening. Take with meals. Do all this for 30 days. Begin taking after completing indomethacin. 60 tablet 05/21/2024 06/20/2024 Activeondansetron 4 mg oral tablet (4 sources)Serotonin-3 Receptor AntagonistStart: 70-02-9572khlj 1 tablet by mouth every eight hours as needed for nausea and vomitingondansetron (ZOFRAN) 4 mg tablet Take 1 tablet (4 mg total) by mouth every 8 (eight) hours as needed for nausea or vomiting. 20 tablet 05/21/2024 Activepantoprazole 40 mg delayed release oral tablet (4 sources)Proton Pump InhibitorStart: 94-56-3517tlce 1 tablet by mouth in the morningpantoprazole (PROTONIX) 40 mg EC tablet Take 1 tablet (40 mg total) by mouth in the morning. 10 tablet 05/21/2024 Activetamsulosin (20 sources)alpha-Adrenergic BlockerStart: 89-53-7176tltizxgmcy as directed, Refills(s) 0 Start Date: 11/21/24 Status: Ordered Repeat number: 1Start: 09-18-2023 End: 77-10-4788ncov 1 capsule by mouth once dailyTamsulosin 0.4 mg capsule Active 0 .ROUTE .COMPLEX 90 3 September 16, 2024 8:11am TAKE 1 CAPSULE BY MOUTH EVERY DAY FOR 90 DAYS Complies with drug therapyStart: 09-22-2022 End: 90-86-7079lfex 1 capsule by mouth once dailyTamsulosin 0.4 mg capsule Discontinued 0.4 MG PO Daily September 18, 2023 12:00am September 18, 2023 8:39am tamsulosin (Flomax) 0.4 MG 24 hr capsule Activetelmisartan 20 mg oral tablet (2 sources)Angiotensin 2 Receptor BlockerStart: 73-44-1089ruob 1 tablet by mouth once dailytelmisartan 20 mg oral tablet 20 mg = 1 tab(s), Oral, Daily, Refills(s) 0 Start Date: 12/05/24 Status: Ordered Repeat number: 1Start: 12-06-0721hvch 1 tablet by mouth once dailyTelmisartan 20 mg tablet Active 20 MG PO Daily December 03, 2024 12:00am Complies with drug therapy Problems Active Problems Problem ClassificationProblemDateDocumented DateEpisodic/ChronicAbdominal pain (8 sources)Left lower quadrant pain; Translations: [Left inguinal pain]Onset: 32-38-0738SeklswgtMyamfo (9 sources)Mild intermittent asthma; Translations: [Mild intermittent asthma, uncomplicated]40-25-9061GiqtitvNlroqskqqx and other anemia (4 sources)Iron deficiency anemia; Translations: [Iron deficiency anemia, unspecified]Onset: 770684-96-6449JqmegrmrFdtairgjus disorders (10 sources)Gastroesophageal reflux disease without esophagitis; Translations: [Gastro-esophageal reflux disease without esophagitis]Onset: 12-05-2024 37-55-9810YkexvypZszpcyzkuhtbf symptoms and ill-defined conditions (6 sources)Delay when starting to pass urine; Translations: [Hesitancy of micturition]EpisodicHeart valve disorders (3 sources)Heart murmur; Translations: [Cardiac murmur, unspecified]11-04-2024 EpisodicHyperplasia of prostate (11 sources)Lower urinary tract symptoms due to benign prostatic hypertrophy; Translations: [Benign prostatic hyperplasia with lower urinary tract symptoms] ChronicJoint disorders and dislocations; trauma-related (20 sources)Other articular cartilage disorders, left hip; Translations: [Acetabular labrum tear]Onset: 574593-79-1893TbxsodfMzvszivmqss chest pain (4 sources)Chest pain; Translations: [Chest pain, unspecified]19-97-3222Rpqlxypd Other aftercare (1 source)Postoperative visit; Translations: [Encounter for other specified surgical aftercare]40-79-1811SchksxbqVezxx aftercare (1 source)Encounter for other specified surgical aftercare; Translations: [Encounter for other specified surgical aftercare]Onset: 42-35-4415QkccqsjfNwsku injuries and conditions due to external causes (6 sources)Other specified injuries of abdomen, subsequent encounter; Translations: [OTH SPEC INJURIES ABD SUBSEQUENT]Onset: 58-83-5292KlgdsckfTizeh lower respiratory disease (4 sources)Dyspnea; Translations: [Dyspnea, unspecified]62-58-2106Etfhegzh Comment on above:Echo: LVEF 55%, normal RV size/function - 11/2024Other nervous system disorders (1 source)Other acute postprocedural pain; Translations: [Other acute postprocedural pain]Onset: 27-24-2651MzdymlghLefvw non-traumatic joint disorders (20 sources)Hip pain; Translations: [Pain in left hip]Onset: 09-27-2023 90-85-5905RvgjyyqlYityp non-traumatic joint disorders (20 sources)Pain in right hip joint; Translations: [Pain in right hip]Onset: 667879-77-2890ZmoshhvzMlvoc non-traumatic joint disorders (20 sources)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; Translations: [Other specified joint disorders, left hip]Onset: 435502-53-7319Uxsnrecd Other non-traumatic joint disorders (4 sources)Enthesopathy of hip region; Translations: [Other specified joint disorders, left hip]34-02-4915CoyfzqeyOpqoi nutritional; endocrine; and metabolic disorders (1 source)Jqfqizgkua35-98-4646VpwzpikiEobki nutritional; endocrine; and metabolic disorders (1 source)Overweight in adulthood with body mass index of 25 or more but less than 4346-59-1892LpkhghebGacsj screening for suspected conditions (not mental disorders or infectious disease) (20 sources)Encounter for screening for malignant neoplasm of prostate; Translations: [Encounter for screening for malignant neoplasm of colon]Onset: 22-65-6214SokcqbxqHtypnbt on above:PSA: 1.58 - 12/2022, 1.59 - SA: 1.58 - 12/2022, 1.59 - 12/2023, 1.46 - 10/2024Other upper respiratory disease (4 sources)Allergic rhinitis due to pollen; Translations: [Allergic rhinitis due to pollen]ChronicOther upper respiratory disease (1 source)Allergic pjefnoxy52-99-6778UyfwfnoAdweyqpeaqws (3 sources)CONTACT W/AND (SUSP) EXPOS COVID-19; Translations: [CONTACT W/AND (SUSP) EXPOS COVID-19]Onset: 17-99-9672Euzguyhgmnhj (1 source)Femoroacetabular impingement of left hip [M25.852]Onset: 05-21-2024 Unclassified (1 source)Post-opOnset: 38-06-7947Kaceveytofuc (1 source)New PatientOnset: 12-18-2023 Past or Other Problems Problem ClassificationProblemDateDocumented DateEpisodic/ChronicOther non- traumatic joint disorders (20 sources)Femoral acetabular impingement; Translations: [Other specified joint disorders, unspecified hip]Onset: 410592-05-7694FnxukwjoTxkhq non- traumatic joint disorders (3 sources)Other specified joint disorders, left hip; Translations: [Other specified joint disorders, left hip]Onset: 72-31-9272MvncvtyzXdfut non-traumatic joint disorders (2 sources)Other specified joint disorders, unspecified hip; Translations: [Other specified joint disorders, unspecified hip]Onset: 25-66-7761UbjbuclrVytwg non-traumatic joint disorders (2 sources)Pain in left hip; Translations: [Pain in left hip]Onset: 12-18-2023 EpisodicResidual codes; unclassified (1 source)PainOnset: 90-58-1305LljqqgwtJqjukjegvkpx (1 source)CONTACT W/AND (SUSP) EXPOS COVID-19; Translations: [CONTACT W/AND (SUSP) EXPOS COVID-19]Onset: 02-15-2021 Results Test NameValueInterpretationReference RangeFacilityAmbulatory Visit Summaryon 39-68-5737Tqcbhcigio Visit SummaryAmbulatory Visit Summary ANJUMJanesHENRIK :1975 Visit Date:12/05/2024 Ambulatory Visit Instructions Your Care Team Attending Physician - Oren GIBSON MD Primary Care Physician - LUTHER MORRIS DO Referring Physician - LUTHER MORRIS DO This Is Your Medications List Contact prescribing physician if questions or concerns albuterol (Albuterol (Eqv-ProAir HFA)) esomeprazole (Nexium 40 mg Cap-EC) ferrous sulfate (ferrous sulfate 325 mg Tab) montelukast (Singulair 10 mg Tab) tamsulosin telmisartan (telmisartan 20 mg oral tablet) Procedures Performed Colonoscopy (12/21/2022), Tear of the acetabular labrum. Discharge Vitals Heart Rate (Peripheral) 83 Respiratory Rate 16 Blood Pressure 119/82 Height 172.72 cm Height 68 in Weight 89.0 kg Weight 196.211 lb BMI 29.83 Medications What How Much When Instructions Unchanged albuterol (Albuterol (Eqv-ProAir HFA)) 2 Puffs Inhalation Every 6 hours as needed for Shortness of breath or wheezing Contact prescribing physician if questions or concerns Unchanged esomeprazole (Nexium 40 mg Cap-EC) 1 Capsules By Mouth Every day Contact prescribing physician if questions or concerns Unchanged ferrous sulfate (ferrous sulfate 325 mg Tab) 1 Tablets By Mouth Every day Contact prescribing physician if questions or concerns Unchanged montelukast (Singulair 10 mg Tab) 1 Tablets By Mouth Every day Contact prescribing physician if questions or concerns Unchanged tamsulosin as directed Contact prescribing physician if questions or concerns Unchanged telmisartan (telmisartan 20 mg oral tablet) 1 Tablets By Mouth Every day Contact prescribing physician if questions or concerns Allergies No Known Allergies No Known Medication Allergies Problems Ongoing - Any problem that you are currently receiving treatment for. Allergic rhinitis Asthma BMI 29.0-29.9,adult BPH (benign prostatic hyperplasia) Gastroesophageal reflux disease without esophagitis Heart murmur Iron deficiency anemia Overweight Patient Survey You may receive a survey via text or e-mail asking about your office visit. Please share your experience with us by completing your survey. We appreciate your feedback and thank you for choosing us for your care. Patient Portal You may access all of your results and other medical record information on our secure patient portal. If you are not signed up for this yet, please contact [facility] at [phone] to get signed up today. Language Information Language assistance services are available as needed. NormalNovant Health Kernersville Medical Centerer [facility] Hospital [facility] BaltimoreBasophils Auto (Bld) [#/Vol] Ordered By: Luther Morris on 81-48-7413Zgbieizhi (Bld) [#/Vol]0.0 10 3/uL0.0-0.1 [facility] HospitalBasophils/100 WBC Auto (Bld)Ordered By: Luther Morris on 15-44-2567Xwjvcoxsa/100 WBC (Bld)0.5 %0.2-2.0[facility] HospitalEosinophils/100 WBC Auto (Bld)Ordered By: Luther Morris on 52-08-6906Ojathntbbxz/100 WBC (Bld)1.8 %0.9-7.0[facility] Erythrocyte distribution width Auto (RBC) [Ratio]Ordered By: Luther Morris on 49-95-1361Vwqigcwrini distribution width (RBC) [Ratio]22.3 %High11.0-15.0 [facility] HospitalHematocrit Auto (Bld) [Volume fraction]Ordered By: Luther Morris on 15-51-2723Zixoluerns (Bld) [Volume fraction]40.9 %Low 42.0-54.0[facility] HospitalHemoglobin [Mass/volume] in Blood Ordered By: Luther Morris on 83-80-2837Vwpulfafky (Bld) [Mass/Vol]12.4 g/dLLow 14.0-18.0[facility] HospitalIron binding capacity [Mass/volume] in Serum or PlasmaOrdered By: Luther Morris on 61-34-7609Klec binding capacity [Mass/Vol]401.0 ug/dL250.0-450.0[facility] HospitalIron saturation [Mass Fraction] in Serum or PlasmaOrdered By: Luther Morris on 34-14-2542Drnt saturation [Mass fraction]6.5 %[facility] HospitalLaboratory - Chemistry and Chemistry - challengeOrdered By: Luther Morris on 11-18-2024 Ferritin [Mass/Vol]33.0 ng/mL26.0-388.0[facility] HospitalIron [Mass/Vol]26.0 ug/dLLow65.0-175.0[facility] HospitalLaboratory - Hematology and Cell countsOrdered By: Luther Morris on 24-32-5660Jzqzgcko granulocytes/100 WBC (Bld)0.5 %0.0-0.5[facility] Leukocytes [#/volume] corrected for nucleated erythrocytes in Blood by Automated counOrdered By: Luther Morris on 92-67-4041RPF corrected for nucl RBC Auto (Bld) [#/Vol]6.6 10 3/uL4.0-11.0[facility] HospitalLymphocytes Auto (Bld) [#/Vol]Ordered By: Luther Morris on 70-95-8194Jescaokiovc (Bld) [#/Vol]1.7 10 3/uL1.2-3.8[facility] HospitalLymphocytes/100 WBC Auto (Bld)Ordered By: Luther Morris on 30-22-8296Yvoqrxlewnn/100 WBC (Bld)26.2 % 20.5-60.0[facility] HospitalH Auto (RBC) [Entitic mass]Ordered By: Luther Morris on 56-67-0840VEI (RBC) [Entitic mass]23.1 pgLow25.9-34.0 [facility] HospitalMCHC Auto (RBC) [Mass/Vol]Ordered By: Luther Morris on 46-28-3416UTNW (RBC) [Mass/Vol]30.3 g/dL29.9-35.2FC[facility] HospitalMCV Auto (RBC) [Entitic vol]Ordered By: Luther Morris on 91-60-4859EYS (RBC) [Entitic vol]76.3 fLLow80.0-94.0[facility] HospitalMonocytes Auto (Bld) [#/Vol]Ordered By: Luther Morris on 11-18-2024 Monocytes (Bld) [#/Vol]0.7 10 3/uL0.3-0.8[facility] Monocytes/100 WBC Auto (Bld)Ordered By: Luther Morris on 85-86-3746Haivyjnbm/100 WBC (Bld)10.7 %1.7-12.0[facility] HospitalNeutrophils Auto (Bld) [#/Vol]Ordered By: Luther Morris on 15-15-8820Mrddwcncsbm (Bld) [#/Vol]4.0 10 3/uL1.4-6.5FCleveland Clinic Avon HospitalNeutrophils/100 WBC Auto (Bld) Ordered By: Luther Morris on 32-06-5127Rgymlmxszhd/100 WBC (Bld)60.3 %43.0-75.0 [facility] HospitalNo Panel InformationOrdered By: Luther Morris on 12-81-8749Xjgzhfayolx # (Auto)0.1 10 3/uL0.0-0.7FCleveland Clinic Avon HospitalImmature Granulocyte # (Auto)0.03 10 3/uL0.00-0.03[facility] HospitalPlatelet mean volume Auto (Bld) [Entitic vol]Ordered By: Luther Morris on 37-72-5833Pqghpuik mean volume (Bld) [Entitic vol]10.7 fL9.5-13.5 [facility] HospitalPlatelets Auto (Bld) [#/Vol]Ordered By: Luther Morris on 23-04-5659Potpxbyyg (Bld) [#/Vol]300 10 3/uD453-153RowlrhymcKnox Community HospitalRBC Auto (Bld) [#/Vol]Ordered By: Luther Morris on 79-34-1157VJE (Bld) [#/Vol]5.36 10 6/uL4.70-6.10[facility] HospitalReticulocytes/100 RBC Auto (Bld)Ordered By: Luther Morris on 11-18-2024 Reticulocytes/100 RBC (Bld)2.98 %0.60-3.10[facility] Basophils Auto (Bld) [#/Vol]Ordered By: Luther Morris on 39-62-5136Vfpkaywix (Bld) [#/Vol]0.0 10 3/uL0.0-0.1FC[facility] HospitalBasophils/100 WBC Auto (Bld)Ordered By: Luther Morris on 14-08-6863Uqxexenjn/100 WBC (Bld)0.5 %0.2-2.0[facility] HospitalEosinophils/100 WBC Auto (Bld)Ordered By: Luther Morris on 04-05-6262Kdgnjlujrmr/100 WBC (Bld)0.9 %0.9-7.0[facility] HospitalErythrocyte distribution width Auto (RBC) [Ratio]Ordered By: Luther Morris on 91-55-1281Diekhbbkslp distribution width (RBC) [Ratio]17.1 %High11.0-15.0[facility] HospitalFibrin D-dimer [Presence] in Platelet poor plasma by Latex agglutinationOrdered By: Luther Morris on 01-96-6927Zapmeg D-dimer LA Ql (PPP)0.19 mg/L FEU<=0.59[facility] HospitalComment on above:Increases in D-Dimer concentration observed withthromboembolic events can be variable due to localization,size, and age of the thrombus. Therefore, a thromboembolicevent cannot be diagnosed with certa inty on the basis of thereference range. D-Dimers may also be elevated for a varietyof disorders including advanced age, , coronarydisease, cancer, liver disease, infection, inflammation,hematoma, DIC, trauma, post-surgery, diabetes, thrombolyticor anticoagulant therapy, stress, and general izedhospitalization.Globulin Calc (S) [Mass/Vol]Ordered By: Luther Morris on 43-39-2705Ikmnltzz (S) [Mass/Vol]3.7 g/dLKnox Community Hospital Glomerular filtration rate (GFR) estimation in non- AmericanOrdered By: Luther Morris on 89-75-1110UNS/1.73 sq M.predicted among non-blacks MDRD (S/P/Bld) [Vol rate/Area]mL/min/{1.73_m2}>=60 mL/min/1.73m 2FCleveland Clinic Avon HospitalHematocrit Auto (Bld) [Volume fraction]Ordered By: Luther Morris on 58-13-3056Kggkvldyyz (Bld) [Volume fraction]35.9 %Low42.0-54.0[facility] HospitalHemoglobin [Mass/volume] in BloodOrdered By: Luther Morris on 61-52-1831Yprhgdquuy (Bld) [Mass/Vol]10.9 g/dLLow14.0-18.0[facility] HospitalLaboratory - Chemistry and Chemistry - challengeOrdered By: Luther Morris on 64-17-7048Hkfynui [Mass/Vol]3.8 g/dL3.4-5.0[facility] HospitalALP [Catalytic activity/Vol]84 U/F66-380EhseoswahKnox Community HospitalALT [Catalytic activity/Vol]33 U/Z36-22HznwuiwllKnox Community HospitalAST [Catalytic activity/Vol]21 U/N70-82FcaucjpdwKnox Community HospitalBilirubin [Mass/Vol]0.6 mg/dL0.2-1.0[facility] Calcium [Mass/Vol]8.6 mg/dL8.5-10.1FCleveland Clinic Avon HospitalChloride [Moles/Vol]102 mmol/M81-940KcgcerbugKnox Community HospitalCO2 [Moles/Vol]24.6 mmol/L21.0-32.0[facility] HospitalCreatinine [Mass/Vol]1.10 mg/dL 0.70-1.30Kn[facility] HospitalGFR/1.73 sq M.predicted MDRD (S/P/Bld) [Vol rate/Area]mL/min/{1.73_m2}>=60 mL/min/1.73m 2FC[facility] Clinic Avon HospitalGlucose [Mass/Vol]152 mg/sCZudh57-801VxzkbyecmKnox Community Hospital Potassium [Moles/Vol]3.3 mmol/LLow3.5-5.1FC[facility] Protein [Mass/Vol]7.5 g/dL6.4-8.2FProvidence Hospitalodium [Moles/Vol]134 mmol/EUza526-774ZtzarydubKnox Community HospitalTSH Qn1.168 m[IU]/L0.358-3.740Kn[facility] HospitalUrea nitrogen [Mass/Vol]13.0 mg/dL7.0-18.0[facility] HospitalUrea nitrogen/Creatinine [Mass ratio]11.8 mg/mgKnox Community HospitalLaboratory - Hematology and Cell countsOrdered By: Luther Morris on 60-39-7394Pqqceroy granulocytes/100 WBC (Bld)0.4 %0.0-0.5FCleveland Clinic Avon HospitalLeukocytes [#/volume] corrected for nucleated erythrocytes in Blood by Automated counOrdered By: Luther Morris on 10-09-6186OUK corrected for nucl RBC Auto (Bld) [#/Vol]5.7 10 3/uL4.0-11.0[facility] HospitalLymphocytes Auto (Bld) [#/Vol] Ordered By: Luther Morris on 32-12-6164Booiokbrbwi (Bld) [#/Vol]1.7 10 3/uL 1.2-3.8[facility] HospitalLymphocytes/100 WBC Auto (Bld)Ordered By: Luther Morris on 72-65-4641Hbjjpcfsprp/100 WBC (Bld)29.8 %20.5-60.0[facility] HospitalMCH Auto (RBC) [Entitic mass]Ordered By: Luther Morris on 67-69-8530IIW (RBC) [Entitic mass]22.2 pgLow25.9-34.0[facility] HospitalMCHC Auto (RBC) [Mass/Vol]Ordered By: Luther Morris on 11-04-2024 MCHC (RBC) [Mass/Vol]30.4 g/dL29.9-35.2FUK HealthcareV Auto (RBC) [Entitic vol]Ordered By: Luther Morris on 82-73-4083DUY (RBC) [Entitic vol]73.3 fLLow80.0-94.0[facility] HospitalMonocytes Auto (Bld) [#/Vol]Ordered By: Luther Morris on 52-52-7577Lxvhyenoy (Bld) [#/Vol]0.4 10 3/uL 0.3-0.8[facility] HospitalMonocytes/100 WBC Auto (Bld)Ordered By: Luther Morris on 27-56-4978Opqvpkfmv/100 WBC (Bld)7.8 %1.7-12.0[facility] HospitalNeutrophils Auto (Bld) [#/Vol]Ordered By: Luther Morris on 37-02-1961Laqghmljrxc (Bld) [#/Vol]3.4 10 3/uL1.4-6.5FCleveland Clinic Avon HospitalNeutrophils/100 WBC Auto (Bld)Ordered By: Luther Morris on 64-19-5384Nuzlnvoevzv/100 WBC (Bld)60.6 %43.0-75.0[facility] HospitalNo Panel InformationOrdered By: Luther Morris on 02-23-5037Ggadfsyxzjm # (Auto)0.1 10 3/uL0.0-0.7FCleveland Clinic Avon HospitalImmature Granulocyte # (Auto)0.02 10 3/uL0.00-0.03Kn[facility] HospitalProstate Specific Antigen Screen1.46 ng/mL<=4.00[facility] HospitalTroponin I High Sensitivity8.3 pg/mL4.0-76.1FCleveland Clinic Avon HospitalComment on above: CUT-OFF POINTS HAVE BEEN ESTABLISHED BASED ON THE FOURTHUNIVERSAL DEFINITION OF MYOCARDIAL INFARCTION. THE UPPERREFERENCE LIMIT (URL) OF TROPONIN, DEFINED THE 99THPERCENTILE OF cTnI DISTRIBUTION IN A REFERENCE POPULATION,HAS BEEN CONFIRMED THE DECISION THRESHOLD FOR MIDIAGNOSIS.99TH PERCENTILE = 76.2 PG/MLNOTE: HIGH-SENSITIVITY TROPONIN ASSAY IS NOT INTENDED TO BEUSED IN ISOLATION BUT SHOULD BE INTERPRETED IN CONJUNCTIONWITH OTHER DIAGNOSTIC AND CLINICAL INFORMATION.Platelet mean volume Auto (Bld) [Entitic vol]Ordered By: Luther Morris on 70-15-8148Uplnjlma mean volume (Bld) [Entitic vol]10.7 fL 9.5-13.5FCleveland Clinic Avon HospitalPlatelets Auto (Bld) [#/Vol]Ordered By: Luther Morris on 40-64-0856Gzduqcujk (Bld) [#/Vol]348 10 3/bR121-129EyyazlquiKnox Community HospitalRBC Auto (Bld) [#/Vol]Ordered By: Luther Morris on 98-27-7966MPC (Bld) [#/Vol]4.90 10 6/uL4.70-6.10[facility] Health Centererum or plasma albumin/globulin mass ratioOrdered By: Luther Morris on 57-66-8792Obydquy/Globulin [Mass ratio]1.0 {ratio}[facility] Health Centererum or plasma anion gap determinationOrdered By: Luther Morris on 05-93-3292Lfpjf gap [Moles/Vol]10.7 mmol/LFCleveland Clinic Avon HospitalBasic Metabolic Raygoza w/Rfx A1Con 96-73-6244CCT/1.73 sq M.predicted MDRD (S/P/Bld) [Vol rate/Area]mL/min/{1.73_m2}NormalThe [facility] Physician GroupComment on above: Performed By: #### REVA LIPID, EMP BMP #### [facility] [address] [place] [address] USACalcium [Mass/volume] in Serum or PlasmaOrdered By: Jorge David on 42-16-3357Xvjqpif [Mass/Vol]9.4 mg/dL8.6-10.3FCleveland Clinic Avon HospitalComment on above:Performed By: #### EBS LIPID, EMP BMP #### [facility] [address] [place] [address] USACarbon dioxide, total [Moles/volume] in Serum or Plasma Ordered By: Jorge David on 68-40-2757VT0 [Moles/Vol]25.7 mmol/L21.0-31.0 [facility] HospitalComment on above:Performed By: #### EBS LIPID, EMP BMP #### [facility] [address] [place] [address] USAChloride [Moles/volume] in Serum or PlasmaOrdered By: Jorge David on 24-88-7169Ynchvswa [Moles/Vol]105 mmol/B31-343OwbuajnnaKnox Community HospitalComment on above:Performed By: #### EBS LIPID, EMP BMP #### [facility] [address] [place] [address] USACholesterol [Mass/volume] in Serum or PlasmaOrdered By: Jorge David on 30-91-3975Cbwwzgjgtdm [Mass/Vol]205 mg/kOEmxn479-225SihdcojqrKnox Community HospitalComment on above:Chol less than 200 mg/dl low riskChol 201-239 mg/dl borderline riskChol 240 mg/dl and greater high riskResult Comment: Chol less than 200 mg/dl low risk Chol 201-239 mg/dl borderline risk Chol 240 mg/dl and greater high riskPerformed By: #### EBS LIPID, EMP BMP #### [facility] [address] [place] [address] USACholesterol in HDL [Mass/volume] in Serum or PlasmaOrdered By: Jorge David on 04-24-0728Cbmkddwinka in HDL [Mass/Vol]46 mg/dL23-92 [facility] HospitalComment on above:HDL CHOL ATP-III CLASSIFICATION Cardiovascular RiskHDL > or equal to 60 mg/dL LOWHDL < 40 mg/dL HIGHResult Comment: HDL CHOL ATP-III CLASSIFICATION Cardiovascular Risk HDL > or equal to 60 mg/dL LOW HDL < 40 mg/dL HIGHPerformed By: #### EBS LIPID, EMP BMP #### [facility] [address] [place] [address] USACholesterol in LDL Calc [Mass/Vol]Ordered By: Jorge David on 96-10-6221Gmjjynjlzko in LDL [Mass/Vol]126 mg/dLHigh0-100Kn[facility] HospitalComment on above:LDL ATP III CLASSIFICATIONLDL less than 100 mg/dL OptimalLDL 100-129 mg/dL Near or above zcztsamVFF035-561 mg/dL Borderline highLDL 160-189 mg/dL HighLDL greater than 189 mg/dL Very high Cholesterol in VLDL Calc [Mass/Vol]Ordered By: Jorge David on 10-10-2024 Cholesterol in VLDL [Mass/Vol]32 mg/dLKnox Community Hospital Creatinine [Mass/volume] in Serum or PlasmaOrdered By: Jorge David on 02-84-0398Bqidnyalhm [Mass/Vol]1.05 mg/dL0.70-1.30Kn[facility] Community HospitalComment on above:Performed By: #### EBS LIPID, EMP BMP #### [facility] [address] [place] [address] USAGlomerular filtration rate [Volume Rate/Area] in Serum, Plasma or Blood by CreatinineOrdered By: Jorge David on 81-69-7860Xavwqowblu filtration rate [Volume Rate/Area] in Serum, Plasma or Blood by Creatinine> 60.0 mL/MinKnox Community HospitalGlucose [Mass/volume] in Serum or Plasma Ordered By: Jorge David on 50-14-0152Cnwvpox [Mass/Vol]93 mg/mS02-848VmwlsuegdKnox Community HospitalComment on above:Performed By: #### EBS LIPID, EMP BMP #### [facility] [address] [place] [address] USALipid Profileon 48-59-1963FWE Cholesterol,Heoikjdcyf530 mg/dLHigh0-100The [facility] Physician GroupComment on above:Result Comment: LDL ATP III CLASSIFICATION LDL less than 100 mg/dL Optimal LDL 100-129 mg/dL Near or above optimal LDL 130-159 mg/dL Borderline high LDL 160-189 mg/dL High LDL greater than 189 mg/dL Very highPerformed By: #### EBS LIPID, EMP BMP #### [facility] [address] [place] [address] USATriglyceride w/Bcyhxt208 mg/dLHigh0-149The [facility] Physician GroupComment on above:Result Comment: TRIG ATP III CLASSIFICATION TRIG less than 150 mg/dL Normal TRIG 150-199 mg/dL Borderline high TRIG 200-500 mg/dL High TRIG greater than 500 mg/dL Very high Standard traceable to the Center for Disease Conrtrol and Prevention (CDC) test method.Performed By: #### EBS LIPID, EMP BMP #### [facility] [address] [place] [address] USAVLDL BIJAUZPVUZF65 mg/dLNoNorth Carolina Specialty Hospital Physician GroupComment on above:Performed By: #### EBS LIPID, EMP BMP #### [facility] [address] [place] [address] USANo Panel InformationOrdered By: Jorge David on 23-02-5062Ctinvntj Creatinine Clearance (ChemN/Marion HospitalPotassium [Moles/volume] in Serum or PlasmaOrdered By: Jorge David on 27-52-2229Lyqvdusjk [Moles/Vol]4.6 mmol/L3.5-5.1FCleveland Clinic Avon HospitalComment on above:Performed By: #### REVA LIPID, EMP BMP #### [place] [address] USASerum or plasma anion gap determinationOrdered By: Jorge David on 00-09-5346Feykx gap [Moles/Vol]10.9 mmol/L6.0-15.0Kn[facility] HospitalComment on above:Performed By: #### EBS LIPID, EMP BMP #### [place] [address] USASerum or plasma total cholesterol/high density lipoprotein (HDL) cholesterol mass ratOrdered By: Jorge David on 10-10-2024 Cholesterol.total/Cholesterol in HDL [Mass ratio]4.5 {ratio}<5.0Kn[facility] Community HospitalComment on above:Result Comment: PERFORMED BY: [place] [address] PATHOLOGIST SOFTWARE QA MANAGER WENDI KAYE M.D.Performed By: #### EBS LIPID, EMP BMP #### [place] [address] USASodium [Moles/volume] in Serum or PlasmaOrdered By: Jorge David on 43-17-6260Txqewb [Moles/Vol]137 mmol/V312-174QmprhplwuKnox Community HospitalComment on above:Performed By: #### EBS LIPID, EMP BMP #### [facility] [address] [place] [address] USATriglyceride [Mass/volume] in Serum or PlasmaOrdered By: Jorge David on 04-35-8556Uodjebtggine [Mass/Vol]164 mg/dLHigh0-149Kn[facility] HospitalComment on above:TRIG ATP III CLASSIFICATIONTRIG less than 150 mg/dL NormalTRIG 150-199 mg/dL Borderline highTRIG 200-500 mg/dL High TRIG greater than 500 mg/dL Very highStandard traceable to the Center for Disease Conrtrol and Prevention (CDC) test method.Urea nitrogen [Mass/volume] in Serum or PlasmaOrdered By: Jorge David on 73-70-1449Rjuq nitrogen [Mass/Vol] 14 mg/dL7-25Kn[facility] HospitalComment on above:Performed By: #### EBS LIPID, EMP BMP #### [facility] [address] [place] [address] USAXR Pelvis and Hip - left 2 Viewson 00-87-2500WN and lateral x-rays left hip reviewed stable appearing joint space no acute osseous abnormalities this is my independent interpretation.MANUALLY TRANSCRIBED RESULTSDayton Osteopathic Hospital FiscalNote [facility] HospitalRadiology Study observation (narrative)[facility] HospitalCloudAptitude [facility]inai HospitalCT HIP LT WO CONTon 01-63-6478N[place] HIP LT WO CONTCT HIP LT WO CONT Clinical information: Hip [...] by Nestor Ricketts MD on 03/10/2024 5:58 [facility]MR ARTHROGRAM HIP LT W CONTon 59-53-4447BD ARTHROGRAM HIP LT W CONTMR ARTHROGRAM HIP LT W CONT CLINICAL INFORMATION: [...] by Tacos Cornelius MD on 01/22/2024 9:49 [facility] HospitalFL MR/CT ARTHROGRAM HIP LT W INJon [id number] MR/CT ARTHROGRAM HIP LT W INJFL MR/CT ARTHROGRAM HIP LT W INJ History: [...] by Solo Vera MD on 01/21/2024 3:00 [facility] HospitalXR Pelvis and Hip - left 2 Viewson 72-51-1403BT, 45 degree Flowers lateral, and false profile x-rays of the left hip were obtained in the office today. 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 Tonus grade 1 no acute osseous abnormalities. MANUALLY TRANSCRIBED [facility] HospitalRadiology Study observation (narrative)[facility] 31-17-1668ISCWVmeaqt Visit (GENSMN) HENRIK MENJIVAR ([id number]) 1975 M Date Time Provider Department 09/10/23 [...] Brad Hanna MD 09/14/2023 2:54 PM Signed [facility] Abdominal [facility] - HISTORY AND PHYSICAL Chief Complaint: Groin Pain HPI: Henrik Kody Iris is a 47 year old male with [...] no inguinal hernia found US - 08/15/23 Icee-kl-edbgdglm tendinosis adductor origin without tear or hyperemia. [...] Order(s):CONSULT TO PHYSICAL THERAPY [9032] Order #: [id number]: 1 FUTURE Prescriptions as of 09/14/2023 - [...] Have you had unintention (more content not included)...NormalPremier Health Upper Valley Medical CenterUS HIP LTon 04-92-8425BP HIP LT* * *Final Report* * * DATE OF [...] with mild hyperemia. No joint effusion. IMPRESSION: Cvxz-wo-owyicjiu tendinosis adductor origin without tear or hyperemia. Synovial thickening of the anterior hip joint with mild hyperemia. Professor Of Religious Studies: [facility] Transcribe Date/Time: Aug 15 2023 1:52P Dictated by : SARAH GARDNER MD This examination was interpreted and the report reviewed and electronically signed by: SARAH GARDNER MD on Aug 15 2023 1:58PM EST [id number] Fayette Medical Center Hip - lefton 08-15-2023 IMPRESSION: Nrcu-ox-whjhmcjh tendinosis adductor origin without tear or hyperemia. Synovial thickening of the anterior hip joint with mild hyperemia. Professor Of Religious Studies: [facility] Transcribe Date/Time: Aug 15 2023 1:52P Dictated by : SARAH GRADNER MD This examination was interpreted and the report reviewed and electronically signed by: SARAH GARDNER MD on Aug 15 2023 1:58PM EST DIVISION OF RADIOLOGY* * *Final Report* * * DATE OF [...] mild hyperemia. No joint effusion. DIVISION OF RADIOLOGYProvider, [facility] [place] - 08/15/2023 * * *Final Report* * [...] mild hyperemia. No joint effusion. IMPRESSION IMPRESSION: Gdtr-jk-hcfqmyqj tendinosis adductor origin without tear or hyperemia. Synovial thickening of the anterior hip joint with mild hyperemia. Professor Of Religious Studies: [employer] Transcribe Date/Time: Aug 15 2023 1:52P Dictated by : SARAH GARDNER MD This examination was interpreted and the report reviewed and electronically signed by: SARAH GARDNER MD on Aug 15 2023 1:58PM EST [facility] Medical CenterRadiology Study observation (narrative)[facility] Hip - leftOrdered By: Ccf Provider on 67-02-9625Ijdgxqkwp ClinicCNPNon 84-90-9369MTHE Telephone (RULTTB) HENRIK MENJIVAR ([id number]) 1975 M Date Time Provider Department 07/11/23 [facility] During your visit today, we recorded the following information about you: Jack France 07/11/2023 9:45 AM Addendum Visit Type: ANY [...] our three locations. Slot held: N/A Natalia Oliveira 07/11/2023 11:07 AM Signed Called patient on July 11, 2023 at 11:07 AM to schedule their MS[facility] US exam. No answer, left VM, 1st attempt. Left VM stating [facility] US department will call back. Natalia Oliveira 07/11/2023 3:06 PM Signed Patient has been scheduled for their MSK US exam on 08/15/23 : 1:35 PM at [facility]. Allergies As of Date: 07/11/2023 (Not on File) Date Reviewed: 07/10/2023 Reviewed by: Jacklyn Graf MA - Fully Assessed Reason for Visit: Appointment [186] Prescriptions as of 07/11/2023 - montelukast (SINGULAIR) 10 mg tablet Take by mouth every 24 hours. - tamsulosin (FLOMAX) 0.4 mg - cetirizine (ZYRTEC) 10 mg tablet Problem List As Of Date: 07/11/2023 (None) Encounter Status:Closed by NATALIA OLIVEIRA on 07/11/23NoKindred Hospital [facility] 10-01-5018HOFXRfataw Visit (NELDA) ANJUMHENRIK Marrero ([id number]) 1975 M Date Time Provider Department 07/10/23 [...] Filomena Arreola MD 07/10/2023 11:12 AM Signed [facility] Abdominal [facility] - HISTORY AND PHYSICAL Chief Complaint: Chronic left groin pain HPI: Henrik Gates Iris is a 47 year old male with [...] chronic pain management Plan (more content not included)...NormalMary[facility] PHYSICALon 90-81-3418BUMLHHP PHYSICALHNO ID: [id number] Author: FILOMENA ARREOLA MD Service: ? Author Type: Resident Type: H&P Filed: 07/10/2023 11:12 Note Text: [facility] for Abdominal [facility] - HISTORY AND PHYSICAL Chief Complaint: [...] MD General Surgery Resident, PGY-1 07/10/2023 10:23 AMNormalPremier Health Upper Valley Medical CenterMR PELVIS WO W CONon 33-18-9631NND PELVIS WO W CONEXAMINATION: MRI PELVIS WO W CON HISTORY: Injury [...] Electronically authenticated by: BRAD NEW Date: 2021-12-16 15:05[facility] HospitalCT ABD/PELV W CONon 97-04-7946PS ABD/PELV W CONEXAMINATION: CT ABD/PELV W CON, 06/17/2021 1:27 PM [...] Electronically authenticated by: BRAD NEW Date: 2021-06-17 16:50NoVan [facility] AUTO DIFFon 30-00-6776YHLM #0.0 103/ulNormal0.0-0.1St. Elizabeth HospitalComment on above:Performed By: #### CBC #### [facility] [address] [place] [address] Dr. Gala JohnsonBasophils/100 WBC (Bld)0.6 %Normal0.2-2.0[facility] Comment on above:Performed By: #### CBC #### [facility] [address] [place] [address] Dr. Gala Manuel #0.1 103/ulNormal0.0-0.7The [facility] Osteopathic ClinicComment on above: Performed By: #### CBC #### [facility] [address] [place] [address] Dr. Gala Lopezosinophils/100 WBC (Bld)1.2 %Normal0.9-7.0[facility] Comment on above:Performed By: #### CBC #### [facility] [address] [place] [address] Dr. Gala Lopezrythrocyte distribution width (RBC) [Ratio]13.1 %Asbhdf14.0-15.0 The [facility] Osteopathic ClinicComment on above:Performed By: #### CBC #### [facility] [address] [place] [address] Dr. Gala JohnsonHematocrit (Bld) [Volume fraction]49.3 %Jrupmk05.0-54.0The [facility]opathic ClinicComment on above:Performed By: #### CBC #### [facility] [address] [place] [address] Dr. Gala JohnsonHemoglobin (Bld) [Mass/Vol]15.8 g/bSCgcdiz11.0-18.0The [facility] ClinicComment on above:Performed By: #### CBC #### [facility] [address] [place] [address] Dr. Gala Stone #0.02 10e3/ulNormal0.00-0.03The [facility] ClinicComment on above:Performed By: #### CBC #### [facility] [address] [place] [address] Dr. Gala Stone %0.3 %Normal0.0-0.5The [facility] Osteopathic ClinicComment on above: Performed By: #### CBC #### [facility] [address] [place] [address] Dr. Gala Keen #2.3 103/ulNormal1.2-3.8The [facility]opathic ClinicComment on above:Performed By: #### CBC #### [facility] [address] [place] [address] Dr. Gala Bellhocytes/100 WBC (Bld)33.5 %Fdehrt68.5-60.0The [facility]opathic ClinicComment on above:Performed By: #### CBC #### [facility] [address] [place] [address] Dr. Gala VargasUAL DIFF REQNONormalThe [facility] ClinicComment on above: Performed By: #### CBC #### [facility] [address] [place] [address] Dr. Gala Watts (RBC) [Entitic mass]30.3 ybRbgfco19.9-34.0The [facility]opathic ClinicComment on above:Performed By: #### CBC #### [facility] [address] [place] [address] Dr. Gala Watts (RBC) [Mass/Vol]32.0 g/fYCmviax33.9-35.2The [facility] ClinicComment on above:Performed By: #### CBC #### [facility] [address] [place] [address] Dr. Gala Fagan (RBC) [Entitic vol]94.4 fLCritically high80.0-94.0The [facility] ClinicComment on above:Performed By: #### CBC #### [facility] [address] [place] [address] Dr. Gala Yepez #0.6 103/ulNormal0.3-0.8The [facility]opathic ClinicComment on above:Performed By: #### CBC #### [facility] [address] [place] [address] Dr. Gala Randleocytes/100 WBC (Bld)8.3 %Normal1.7-12.0The [facility] Comment on above:Performed By: #### CBC #### [facility] [address] [place] [address] Dr. Gala Ochoa #3.8 103/ulNormal1.4-6.5The [facility]opathic ClinicComment on above:Performed By: #### CBC #### [facility] [address] [place] [address] Dr. Gala Boswellutrophils/100 WBC (Bld)56.1 %Hhrymi63.0-75.0The [facility]opathic ClinicComment on above:Performed By: #### CBC #### [facility] [address] [place] [address] Dr. Gala Johnsonlet mean volume (Bld) [Entitic vol]11.9 fLNormal9.5-13.5The [facility] ClinicComment on above:Performed By: #### CBC #### [facility] [address] [place] [address] Dr. Gala JohnsonPLT246 103/haDkpyay961-063Nsq [facility] ClinicComment on above: Performed By: #### CBC #### [facility] [address] [place] [address] Dr. Gala JohnsonRBC5.22 106/ulNormal4.70-6.10The [facility] on above:Performed By: #### CBC #### [facility] [address] [address] [address] Gala JohnsonWBC6.8 103/ulNormal4.0-11.0[facility] on above: Performed By: #### CBC #### [facility] [address] [address] [address] Gala JohnsonGLYCOHEMOGLOBIN A1Con 85-49-0552EXQ RECOMMENDATIONSEE Lutheran HospitalComhelen devos [facility] on above:Result Comment: ADA RECOMMENDED LIMIT 4.0 - 6.0 ADA THERAPEUTIC TARGET < 7.0 ACTION SUGGESTED > 7.0Performed By: #### A1C #### [facility] [address] [place] [address] Dr. Gala JohnsonGlucose [Mass/Vol]117 mg/dLNoPomerene Hospital on above:Performed By: #### A1C #### [facility] [address] [place] [address] Dr. Gala JohnsonHbA1c (Bld) [Mass fraction]5.7 %Normal4.5-6.2[facility] on above:Performed By: #### A1C #### [facility] [address] [place] [address] Dr. Gala JohnsonLIPID PROFILEon 71-10-3360DERN-HDL RATIO NORMSEE [facility] HospitalComhelen devos children[facility] on above:Result Comment: 3.3 - 4.4 LOW RISK 4.4 - 7.1 AVERAGE RISK 7.1 - 11.0 MODERATE RISK >11.0 HIGH RISKPerformed By: #### LIPID, TSH, CMP #### [facility] [address] [place] [address] Dr. Gala JohnsonCholesterol [Mass/Vol]236 mg/dLCritically high<=200[facility] on above:Performed By: #### LIPID, TSH, CMP #### [facility] [address] [place] [address] Dr. Gala JohnsonCholesterol in HDL [Mass/Vol]47 mg/zHTchvmw90-81QieSelect Medical [facility]Health Rehabilitation Hospital on above:Performed By: #### LIPID, TSH, CMP #### [facility] [address] [place] [address] Dr. Gala JohnsonCholesterol in LDL [Mass/Vol]134.0 mg/dLNoMercy Health St. Charles HospitalComhelen devos children's hospital on above:Performed By: #### LIPID, TSH, CMP #### [facility] [address] [place] [address] Dr. Gala Ludwigesterbrian.total/Cholesterol in HDL [Mass ratio]5.0 {ratio} NormalThe [facility] on above:Performed By: #### LIPID, TSH, CMP #### [facility] [address] [place] [address] Dr. Gala Pulido NORMAL> or = 60 mg/dl - LOW CARDIOVASCULAR RISK <40 mg/dl - HIGH CARDIOVASCULAR RISKNoMercy Health St. Charles HospitalComhelen devos children's hospital on above:Performed By: #### LIPID, TSH, CMP #### [facility] [address] [place] [address] Dr. Gala Martines CALC NORMALSEE BELOWMemorial Health System Marietta Memorial HospitalComhelen devos children's hospital on above:Result Comment: <100 mg/dl OPTIMAL 100 - 129 mg/dl NEAR OR ABOVE OPTIMAL 130 - 159 mg/dl BORDERLINE HIGH 160 - 189 mg/dl HIGH >190 mg/dl VERY HIGH Performed By: #### LIPID, TSH, CMP #### [facility] [address] [place] [address] Dr. Gala JohnsonTriglyceride [Mass/Vol]275 mg/dLCritically high<=150[facility] on above:Performed By: #### LIPID, TSH, CMP #### [facility] [address] [place] [address] Dr. Gala JohnsonVLDL CALC55.0 mg/dLNoPomerene Hospital on above: Performed By: #### LIPID, TSH, CMP #### [facility] [address] [place] [address] Dr. Gala JohnsonPROVinod 14(COMP METB)on 15-86-8750Upsuopy [Mass/Vol]4.2 g/dLNormal 3.4-5.0The [facility] ClinicComment on above:Performed By: #### LIPID, TSH, CMP #### [facility] [address] [address] [address] Gala JohnsonAlbumin/Globulin [Mass ratio]1.2 {ratio}NormalThe [facility] ClinicComment on above:Performed By: #### LIPID, TSH, CMP #### [facility] [address] [address] [address] Gala JacobsenP [Catalytic activity/Vol]72 U/SSjggim77-697Tkv [facility] ClinicComment on above:Performed By: #### LIPID, TSH, CMP #### [facility] [address] [place] [address] Dr. Gala Culver [Catalytic activity/Vol]30 U/ARkyvwy43-76Mch [facility] ClinicComment on above:Performed By: #### LIPID, TSH, CMP #### [facility] [address] [address] [address] Gala Piña gap [Moles/Vol]11.7 mmol/LNormalThe [facility] Comment on above:Performed By: #### LIPID, TSH, CMP #### [facility] [address] [place] [address] Dr. Gala JohnsonAST [Catalytic activity/Vol]18 U/DJckpsm37-33Oeb [facility] ClinicComment on above:Performed By: #### LIPID, TSH, CMP #### [facility] [address] [address] [address] Gala JohnsonBilirubin [Mass/Vol]0.7 mg/dLNormal0.2-1.0The [facility] Comment on above:Performed By: #### LIPID, TSH, CMP #### [facility] [address] [address] [address] Gala JohnsonCalcium [Mass/Vol]8.6 mg/dLNormal8.5-10.1The [facility] Comment on above:Performed By: #### LIPID, TSH, CMP #### [facility] [facility] [address] [address] [address] Gala JohnsonChloride [Moles/Vol]101 mmol/MYxqvfj07-663Pgi [facility] Comment on above:Performed By: #### LIPID, TSH, CMP #### [facility] [address] [address] [address] Gala JohnsonCO2 [Moles/Vol]29.1 mmol/BYtfwgh88.0-32.0The [facility] Comment on above:Performed By: #### LIPID, TSH, CMP #### [facility] [address] [address] [address] Gala JohnsonCreatinine [Mass/Vol]0.91 mg/dLNormal0.70-1.30The [facility] ClinicComment on above:Performed By: #### LIPID, TSH, CMP #### [facility] [address] [place] [address] Dr. Gala LopezGFR-AF ARMENIAN>60Normal>=60The [facility] ClinicComment on above:Performed By: #### LIPID, TSH, CMP #### [facility] [address] [place] [address] Dr. Gala LopezGFR-NON AF ARMENIAN>60Normal>=60The [facility] ClinicComment on above:Performed By: #### LIPID, TSH, CMP #### [facility] [address] [place] [address] Dr. Gala JohnsonGlobulin (S) [Mass/Vol]3.4 g/dLNormalThe [facility] ClinicComment on above:Performed By: #### LIPID, TSH, CMP #### [facility] [address] [place] [address] Dr. Gala JohnsonGlucose [Mass/Vol]86 mg/nEQsqeam64-699Qtu [facility] Comment on above:Performed By: #### LIPID, TSH, CMP #### [facility] [address] [place] [address] Dr. Gala JohnsonPotassium [Moles/Vol]3.8 mmol/LNormal3.5-5.1The [facility] Comment on above:Performed By: #### LIPID, TSH, CMP #### [facility] [address] [place] [address] Dr. Gala JohnsonProtein [Mass/Vol]7.6 g/dLNormal6.1-8.2[facility] Comment on above:Performed By: #### LIPID, TSH, CMP #### [facility] [address] [place] [address] Dr. Gala JohnsonSodium [Moles/Vol]138 mmol/UTmfhfx600-731ExrSt. [facility] Comment on above:Performed By: #### LIPID, TSH, CMP #### [facility] [address] [place] [address] Dr. Gala JohnsonUrea nitrogen [Mass/Vol]13.0 mg/dLNormal7.0-18.0[facility] HospitalComment on above:Performed By: #### LIPID, TSH, CMP #### [facility] [address] [place] [address] Dr. Gala Gomez nitrogen/Creatinine [Mass ratio]14.3 mg/mgNormalThSelect Medical Cleveland Clinic Rehabilitation Hospital, AvonComment on above:Performed By: #### LIPID, TSH, CMP #### [facility] [address] [place] [address] Dr. Gala Bee 08-47-2738TRY1.610 uIU/mLNormal0.470-4.680St. [facility] HospitalComment on above:Performed By: #### LIPID, TSH, CMP #### [facility] [address] [place] [address] Dr. Gala [facility] CenterComment on above: Result Comment: <0.34 UIU/ml HYPERTHYROID 0.34-5.60 UIU/ml EUTHYROID >5.60 UIU/ml HYPOTHYROIDPerformed By: #### LIPID, TSH, CMP #### [facility] [address] [place] [address] Dr. Gala Mojica RANDOM W/MICROSCOPICon 24-77-2651UXJHYLGCURFR SEENrmalNONE SEENSt. Elizabeth HospitalComment on above:Performed By: #### UAMIC #### [facility] [address] [address] [address] Gala JohnsonBilirubin Ql (U)NegativeNormalNEGSelect Medical Specialty [facility] [place] Comment on above:Performed By: #### UAMIC #### [facility] [address] [address] [address] Gala JohnsonCASTESSIE SEENNormalNONE SEENSt. Elizabeth HospitalComment on above:Performed By: #### UAMIC #### [facility] [address] [address] [address] Gala JohnsonClarity (U)CLEARNormalCLEARSt. Elizabeth HospitalComment on above: Performed By: #### UAMIC #### [facility] [address] [address] [address] Gala JohnsonColor (U)LT. YELLOWNormalYELLOWSt. Elizabeth HospitalComment on above:Performed By: #### UAMIC #### [facility] [address] [place] [address] Dr. Gala JohnsonCrystals LM Nom (Urine sed)NONE SEENNormalNONE SEENSt. Elizabeth HospitalComment on above:Performed By: #### UAMIC #### [facility] [address] [place] [address] Dr. Gala Cariaslial cells LM Ql (Urine sed)NONE SEENNormalNONE SEEN /RARE St. [facility] HospitalComhelen [facility] on above:Performed By: #### UAMIC #### [facility] [address] [address] [address] Gala JohnsonGlucose Ql (U)NegativeNormalNEGATIVESt. Elizabeth HospitalComment on above:Performed By: #### UAMIC #### [facility] [address] [place] [address] Dr. Gala JohnsonHemoglobin Ql (U)NegativeNormalNEGATIVESt. [facility] Hospital Comment on above:Performed By: #### UAMIC #### [facility] [address] [place] [address] Dr. Gala JohnsonKetones Ql (U)NegativeNormalNEGATIVEThe Margaretville HospitalComment on above:Performed By: #### UAMIC #### [facility] [address] [address] [address] Gala JohnsonLEUKOCYTESNegativeNormalNEGATIVEThe [facility] ClinicComment on above:Performed By: #### UAMIC #### [facility] [address] [address] [address] Gala JohnsonMUCOUSNONE SEENNormalNONE SEENSt. Elizabeth HospitalComment on above:Performed By: #### UAMIC #### [facility] [address] [place] [address] Dr. Gala Ngotrite Ql (U)NegativeNormalNEGATIVEThe [facility] ClinicComment on above:Performed By: #### UAMIC #### [facility] [address] [place] [address] Dr. Gala JohnsonpH (U)6.5 [pH]Normal5-9The [facility] ClinicComment on above: Performed By: #### UAMIC #### [facility] [address] [place] [address] Dr. Gala JohnsonRBCNONE SEENAbnormal0-2The [facility] ClinicComment on above: Performed By: #### UAMIC #### [facility] [address] [place] [address] Dr. Gala JohnsonSPEC GRAVITY1.847Cfodyu8.005-<=1.025The [facility] ClinicComment on above:Performed By: #### UAMIC #### [facility] [address] [place] [address] Dr. Gala JohnsonUA PROTEINNegativeNormalNEGATIVE/ TRACEThe [facility] Comment on above:Performed By: #### UAMIC #### [facility] [address] [place] [address] Dr. Gala Hardingbilinogen Qn (U)0.2 {Tarun'U}/dLNormal0.2 - 1.0The [facility] ClinicComment on above:Performed By: #### UAMIC #### [facility] [address] [place] [address] Dr. Gala JohnsonWBCNONE SEENNormalNONE SEENSt. Elizabeth HospitalComment on above: Performed By: #### UAMIC #### [facility] [address] [place], [place] [address] Dr. Gala JohnsonCovid-19 PCR ([facility])on 14-51-2753WBMF-CoV-2 (COVID-19) RNA ABBY+probe Ql (Unsp spec)Not detectedNormalNOT DETECTEDThe [facility] Comment on above:Result Comment: When diagnostic testing is negative, the possibility of a false negative should be considered in the context of a patient's recent exposures and the presence of clinical signs and symptoms consistent with SARS-CoV-2. This test is not yet approved or cleared by the [place] Food and Drug Administration (FDA). This test was developed by [employer], [place], [place]. The performance characteristics of this test were validated by [facility]. The results are not intended to be used as the sole means for clinical diagnosis or patient management decisions. The [facility] is authorized under Clinical Laboratory Improvement Amendments [...] for this test is supported by the Juda of Health and Human Service's declaration that circumstances exist to justify the emergency use of in vitro diagnostics for the detection and/or diagnosis of the virus that causes COVID-19. This EUA will remain in effect for the duration of the COVID-19 declaration justifying emergency of IVDs, unless it is terminated or revoked by the FDA (after which the test may no longer be used).Performed By: #### CVDTB #### [facility] [address] [address] Gala Johnson Vital Signs Date TimeVital SignValuePerforming JjfpbohpwQdxmuwmd51-34-6266 15:12-0400Body oocjlm094.72 cmBenjamin Ball DO Work Phone: [facility]10-22-2025 15:12-0400 Body mass index (BMI) [Ratio]30.4 kg/i7Wxfvjkpt Ball DO Work Phone: [phone] [place], [place] 5064110-22-2025 15:12-0400 Body bsdbqe49.77 kgBenjamin Ball DO Work Phone: [phone] [place], [place] 5064110-22-2025 15:12-0400 Diastolic blood oepntofb57 mm[Hg]Luther Ball DO Work Phone: [phone] [place], [place] 5064110-22-2025 15:12-0400 Heart rate87 /minBenjamin Ball DO Work Phone: [phone] [place], [place] 5064110-22-2025 15:12-0400 Respiratory rate12 /minBenjamin Ball DO Work Phone: [phone] [place], [place] 5064110-22-2025 15:12-0400 Systolic blood jpyrggcc335 mm[Hg]Luther Ball DO Work Phone: [phone] [place], [place] 5064109-23-2025 14:00-0400 Body ybnejg373.72 cmBenjamin Ball DO Work Phone: [phone] [place], [place] 5064109-23-2025 14:00-0400 Body mass index (BMI) [Ratio]29.8 kg/q0Gigqbwjd Ball DO Work Phone: 1(419)[address] [place], [place] 5064109-23-2025 14:00-0400 Body vlmfry94.01 kgBenjamin Ball DO Work Phone: [phone] [place], [place] 5064109-23-2025 14:00-0400 Diastolic blood jjrciojt32 mm[Hg]Luther Ball DO Work Phone: 1(419)[address] [place], [place] [address]109-23-2025 14:00-0400 Heart muqt186 /minBenjamin Ball DO Work Phone: 1(419)[address] [place], [place] 50[address]109-23-2025 14:00-0400 Respiratory rate12 /minBenjamin Ball DO Work Phone: [phone] [place], [place] [address]109-23-2025 14:00-0400 Systolic blood mm[Hg]Luther Morris DO Work Phone: [facility]07-14-2025 12:52-0400 Body ifvnlu199.7 Dustin Pierce MD Work Phone: [facility]07-14-2025 12:52-0400Body mass index (BMI) [Ratio]29.19 kg/m2Jeana Pierce MD Work Phone: [facility]07-14-2025 12:52-0400Body yjslhb09.09 kgJeana Pierce MD Work Phone: [facility]05-20-2025 12:27-0400Body omzfuz098.7 Dustin Pierce MD Work Phone: [facility]05-20-2025 12:27-0400Body mass index (BMI) [Ratio]29.19 kg/m2Jeana Pierce MD Work Phone: [facility]05-20-2025 12:27-0400Body uqggxs86.09 kgJeana Pierce MD Work Phone: [facility]04-22-2025 14:09-0400Body llusqx515.7 Dustin Pierce MD Work Phone: [facility]04-22-2025 14:09-0400Body mass index (BMI) [Ratio]29.19 kg/m2Jeana Pierce MD Work Phone: [facility]04-22-2025 14:09-0400Body gksepi27.09 kgJeana Pierce MD Work Phone: [facility]03-24-2025 10:55-0400Body xygnlt692.7 Dustin Pierce MD Work Phone: [facility]03-24-2025 10:55-0400Body mass index (BMI) [Ratio]29.19 kg/m2Jeana Pierce MD Work Phone: [facility]03-24-2025 10:55-0400Body zxuksq14.09 kgAnil Kari NICOLE Work Phone: [facility]11-05-2024 13:34-0500Body .3 cmAnil Kari NICOLE Work Phone: [facility]11-05-2024 13:34-0500Body mass index (BMI) [Ratio]28.65 kg/m2Anil Kari NICOLE Work Phone: [facility]11-05-2024 13:34-0500Body pukvzu59 kgAnil Kari NICOLE Work Phone: [facility]07-29-2024 10:31-0400Body yypxen350.7 cmBrad Hanna MD Work Phone: cSt[facility] CenterWmsvvp98-53-3287 10:31-0400Body mass index (BMI) [Ratio]28.59 kg/k7FygjjBrad Hanna MD Work Phone: cSt. [facility] CenterSjqqlf42-04-9459 10:31-0400Body temperature 98.29 [degF]Brad Hanna MD Work Phone: cSt. [facility] CenterOgcloo39-13-6897 10:31-0400Body ngciuq76.28 kgBrad Hanna MD Work Phone: cSt. [facility] CenterQjbcxb96-31-3344 10:31-0400Diastolic blood mm[Hg]Brad Hanna MD Work Phone: cSt. [facility] CenterZwwbac95-69-3786 10:31-0400Heart rate75 /min Brad Hanna MD Work Phone: cSt. [facility] CenterBsumnn42-62-7925 10:31-0400Systolic blood wxgzusit289 mm[Hg]Brad Hanna MD Work Phone: cSt. [facility] CenterFisryh43-73-2463 10:06-0400Body pytyss493.7 cmLuther Ann MD Work Phone: [facility]05-28-2024 10:06-0400Body mass index (BMI) [Ratio]27.83 kg/m8HaceujbqLuther Ann MD Work Phone: [phone]05-28-2024 10:06-0400Body temperature 97.59 [degF]Luther Ann MD Work Phone: [phone]05-28-2024 10:06-0400Body ahqhjf29.01 kgBevikram Ann MD Work Phone: [facility]05-28-2024 10:06-0400Diastolic blood fkvxvhig14 mm[Hg]Luther Ann MD Work Phone: [facility]05-28-2024 10:06-0400Heart rate84 /min Luther Ann MD Work Phone: [phone]05-28-2024 10:06-0400Systolic blood jjbpoqzg296 mm[Hg]Luther nAn MD Work Phone: [phone]08-11-2023 14:15-0400Body ncypga944.72 cmBenjamin Ball Other [employer] Other 08-11-2023 14:15-0400Body mass index (BMI) [Ratio] 27.52 kg/m3Nracxpfa Ball Other [employer] Other 08-11-2023 14:15-0400Body kfjzra61.1 kgBenjamin Ball Other [employer] Other 08-11-2023 14:15-0400Diastolic blood jzkixict62 mm[Hg] Luther Morris Other [employer] Other 08-11-2023 14:15-0400Respiratory rate12 /minBenjamin Ball Other [employer] Other 08-11-2023 14:15-0400Systolic blood lrnslovk567 mm[Hg] Luther Morris [facility] Other Encounters Encounter DateEncounter TypeCare ProviderFacilityStart: 12-05-2024 End: 64-77-4152fnbyoerfkrZtncwnp R NILLFacility: [place]walkStart: 12-05-2024 End: 78-56-3015Bftxpmt encounter procedureMichael R NILL [phone]-KocypSelect [facility] Start: 12-03-2024 End: 20-15-7436czewrtxvyyZnyfkwxi Ball DO Work Phone: [facility] ClinicStart: 12-03-2024 End: 04-50-9712Dwdxtoi encounter procedureBentoyin Morris DO-[facility] Work Phone: Start: 12-03-2024 End: 18-77-3810Iocmyft encounter statusBentoyin Morris [place] [facility] Hospitaltart: 61-48-7041dmisrinydfCsxlbrn NILLFacility: Nisreentart: 27-35-6830skwojkfnqcFemrclb NILLFacility:[facility] PulaskithereseueStart: 38-63-1437Sxo-patient / Non-visitBentoyin Morris DO-[facility] [employer] Work Phone: Start: 11-04-2024 End: 83-64-1753oqehadcdanRadldcph Ball DO Work Phone: [facility] Work Phone: Start: 11-04-2024 End: 83-97-9566Jizpdjx encounter procedureBentoyin Morris DO-[facility] Work Phone: Start: 10-10-2024 End: 47-93-9098azakjpxmawClwcxtsw Ball DO Work Phone: [facility] Work Phone: Start: 10-10-2024 End: 13-40-4168Fdvjfudf Jalil David -[facility] [address] Work Phone: start: 09-04-2024 End: 75-62-3620PhqchrqlbBtojfelv Wright [employer] Work Phone: noms FB PTComment on above:Left hip pain (Primary Dx); Femoroacetabular impingement of left hip; Articular cartilage disorder of left hipStart: 09-02-2024 End: 80-72-0178CjculmlioUrfaay Jeydesirae PTANOMS FB PTComment on above:Left hip pain (Primary Dx); Femoroacetabular impingement of left hip; Articular cartilage disorder of left hipStart: 08-29-2024 End: 48-26-1719KzewqahlyKekjwkew Lee [employer] Work Phone: noms FB PTComment on above:Left hip pain (Primary Dx); Femoroacetabular impingement of left hip; Articular cartilage disorder of left hipStart: 08-25-2024 End: 60-55-5293Rhakus outpatient visit 15 minutesAnil Gwen Pierce MD Work Phone: [facility] [place] [facility] Spine SurgeonsComment on above:Femoroacetabular impingement of left hip (Primary Dx) Start: 08-25-2024 End: 99-37-2581hwqrjfjwswDCNL Gwen PIERCETwin City Hospital Ambulatory PPGStart: 07-29-2024 End: 58-36-2161IirnosevvCwuldkeb Lee [employer] Work Phone: noms FB PTComment on above:Left hip pain (Primary Dx); Femoroacetabular impingement of left hip; Articular cartilage disorder of left hipStart: 07-29-2024 End: 23-03-4977Acdlyc Onur Lee [employer] Work Phone: noms FB PTStart: 07-29-2024 End: 34-96-7385Mtwzki Onur Lee [employer] Work Phone: noms FB PTStart: 07-22-2024 End: 59-10-1804NpvmgzhyzEklhrijt Wright [employer] Work Phone: NOMS FB PTComment on above:Left hip pain (Primary Dx); Femoroacetabular impingement of left hip; Articular cartilage disorder of left hipStart: 07-22-2024 End: 40-89-5881Pgshsf Onur Lee [employer] Work Phone: NOMS FB PTStart: 07-22-2024 End: 84-21-7311Mryhpk Onur Lee [employer] Work Phone: NOMS FB PTStart: 07-18-2024 End: 21-74-0533Xyalgo flowspreetiKyian Savage PT Work Phone: NOMS FB PTStart: 07-18-2024 End: 66-21-4903Igqqjp flowspreetiKyian Willis Hussein PT Work Phone: NOMS FB PTStart: 07-18-2024 End: 63-83-6074QnpfjhxorCjkg J Hussein PT Work Phone: NOMS FB PTComment on above:Left hip pain (Primary Dx); Femoroacetabular impingement of left hip; Articular cartilage disorder of left hipStart: 07-10-2024 End: 23-90-3489DujeqzafxSlhzsqrq Wright [employer] Work Phone: NOMS FB PTComment on above:Left hip pain (Primary Dx); Femoroacetabular impingement of left hip; Articular cartilage disorder of left hipStart: 07-10-2024 End: 51-47-4507Xayinm Onur Lee [employer] Work Phone: NOMS FB PTStart: 07-10-2024 End: 78-75-7066Fhdfff Onur Lee [employer] Work Phone: NOMS FB PTStart: 07-01-2024 End: 97-38-2430Kmhjge flowspreetiKyian Savage PT Work Phone: NOMS FB PTStart: 07-01-2024 End: 16-99-2819Dnvwja flowsheetKyian J Hussein PT Work Phone: NOZG FB PTStart: 07-01-2024 End: 17-91-4493Hnqgdz follow up visit related to original pxAnil Gwen Kari NICOLE Work Phone: [facility] Spine SurgeonsComment on above:Postoperative visit (Primary Dx)Start: 07-01-2024 End: 92-23-1873GgnbbpiouIrvl [employer] Hussein PT Work Phone: NOOE FB PTComment on above:Left hip pain (Primary Dx); Femoroacetabular impingement of left hip; Articular cartilage disorder of left hipStart: 06-27-2024 End: 17-16-4649Pziwlg Estrogen Gene TestpreetiKyle [employer] Hussein PT Work Phone: NOQW FB PTStart: 06-27-2024 End: 60-56-5808Xyygci flowsStoryvinele [employer] Hussein PT Work Phone: NOZF FB PTStart: 06-27-2024 End: 65-75-9370HeikshqpcYnna TVDeckgs PT Work Phone: NOMS FB PTComment on above:Left hip pain (Primary Dx); Femoroacetabular impingement of left hip; Articular cartilage disorder of left hipStart: 06-24-2024 End: 71-40-0186PqngdnwplQstbqd [place] PTANOMS FB PTComment on above:Left hip pain (Primary Dx); Femoroacetabular impingement of left hip; Articular cartilage disorder of left hipStart: 06-24-2024 End: 39-31-8448Fytyln flowsheetMariah [address] PTANOMS FB PTStart: 06-24-2024 End: 99-75-5760Wmrokx flowsheetMariah [address] PTANOMS FB PTStart: 06-20-2024 End: 83-82-4747Xunksh flowsheetKyle J Hussein PT Work Phone: NOMS FB PTStart: 06-20-2024 End: 54-19-7085Ojwjdz flowsheetKyian J Hussein PT Work Phone: NOMS FB PTStart: 06-20-2024 End: 59-20-0333EjevipmagDawn Alba Hussein PT Work Phone: NOMS FB PTComment on above:Left hip pain (Primary Dx); Femoroacetabular impingement of left hip; Articular cartilage disorder of left hipStart: 06-17-2024 End: 44-20-0983YlmycndarBlcmly [address]rall PTANOMS FB PTComment on above:Left hip pain (Primary Dx); Femoroacetabular impingement of left hip; Articular cartilage disorder of left hipStart: 06-17-2024 End: 88-70-6030Hmgvlz flowsShahnaz [address] PTANOMS FB PTStart: 06-17-2024 End: 55-93-9490Ttiwwx flowsheetLucy [address] PTANOMS FB PTStart: 06-13-2024 End: 07-25-4631Uksmfx flowsheetKyle Alba Hussein PT Work Phone: NOMS FB PTStart: 06-13-2024 End: 98-56-8889Vhfxcg flowsheetKyian Willis Hussein PT Work Phone: NOMS FB PTStart: 06-13-2024 End: 89-72-5492MpfyuhzarSclf Alba Hussein PT Work Phone: NOMS FB PTComment on above:Left hip pain (Primary Dx); Femoroacetabular impingement of left hip; Articular cartilage disorder of left hipStart: 06-03-2024 End: 36-07-1427Aobdpk flowsheetKyle J Hussein PT Work Phone: NOMS FB PTStart: 06-03-2024 End: 46-71-3743Cunqvp flowsheetKyle J Hussein PT Work Phone: NOMS FB PTStart: 06-03-2024 End: 44-57-0228Mwgigu follow up visit related to original pxJeana Pierce MD Work Phone: [facility] Sp[facility] SurgeonsComment on above:Left hip pain (Primary Dx)Start: 06-03-2024 End: 79-38-8038HkwimechfeFbjw J Spriggs PT Work Phone: NOBR FB PTComment on above:Left hip pain (Primary Dx); Femoroacetabular impingement of left hip; Articular cartilage disorder of left hipStart: 05-21-2024 End: 41-86-1169Clhhtc OnlyLisa Brooklyn [facility] [place] [facility] Spine SurgeonsComment on above:Femoroacetabular impingement of left hip (Primary Dx); 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Start: 05-21-2024 End: 61-51-4681Fhvgrigxdn and management of inpatientJEANA PIERCEProMedica Chelsea HospitalStart: 05-15-2024 End: 01-96-4364Yonksx Pj Pierce MD Work Phone: [facility] Spine SurgeonsComment on above:Femoroacetabular impingement of left hip (Primary Dx) Start: 05-07-2024 End: 67-63-9989Lddqendgh to establishmentMetro Pat Phone Call Provider 1 Eugene [facility]tart: 05-07-2024 End: 36-28-6591Msenkcebyc and management of inpatientBENJAMIN E BALLProMedica Chelsea HospitalStart: 05-05-2024 End: 85-11-3690Gvhrqw outpatient visit 25 minutesJeana Pierce MD Work Phone: [facility] [place] [facility] Spine SurgeonsComment on above:Femoroacetabular impingement of left hip (Primary Dx) Start: 05-05-2024 End: 01-66-2748mvpzpsujxrROCD K GUPTAProMedica [facility] PPGStart: 03-07-2024 End: 50-82-8736meseuszatmLYEK K GUPTAProMedica [facility] HospitalStart: 01-23-2024 End: 42-55-5473Likbqljox encounterJeana Pierce MD Work Phone: [facility] SurgeonsStart: 01-21-2024 End: 90-30-9888sunlkhzptsQTLP [facility] Centertart: 12-18-2023 End: 82-14-9883Xkpffr outpatient new 30 minutesJeana Pierce MD Work Phone: [facility] Sp[facility] SurgeonsComment on above:Femoroacetabular impingement of left hip (Primary Dx); Left hip pain; Femoral acetabular impingement; Pain of left hipStart: 48-28-0882Pphmucf encounter statusBenkarinaregan Morris DO Work Phone: [facility] Centertart: 12-18-2023 End: 18-17-9073uhohengcpgWIYT [facility] PPGStart: 10-26-2023 End: 74-17-2125Qvpron [employer] Work Phone: NONG FB PTStart: 10-26-2023 End: 47-07-6254Ldcthl [employer] Work Phone: NOVA FB PTStart: 10-26-2023 End: 86-86-1171yltbnvxvzpSidiszfd Wright [employer] Work Phone: NOXR FB PTComment on above:Right hip pain (Primary Dx); Femoral acetabular impingementStart: 10-23-2023 End: 50-80-7941kqiuyouolnIhhvnc [place] PTANOMS FB PTComment on above:Right hip pain (Primary Dx); Femoral acetabular impingementStart: 10-23-2023 End: 63-87-8994Rpflbg flowsheetMariah [place] PTANOMS FB PTStart: 10-23-2023 End: 99-34-7224Qqmhqf flowsheetMariah [place] PTANOMS FB PTStart: 10-19-2023 End: 76-63-9557rsdmkymhaxCzlhdhep Wright [employer] Work Phone: NOZD FB PTComment on above:Right hip pain (Primary Dx); Femoral acetabular impingementStart: 10-18-2023 End: 08-83-3041naxgaijhinEcihxhuf Wright [employer] Work Phone: NOSI FB PTComment on above:Right hip pain (Primary Dx); Femoral acetabular impingementStart: 10-18-2023 End: 38-12-5612Osqomr Onur Lee [employer] Work Phone: NOHL FB PTStart: 10-18-2023 End: 80-28-9952Dminkf Onur eLe [employer] Work Phone: NOFD FB PTStart: 10-12-2023 End: 43-11-9043fxfgtjlioqKfyd J Hussein PT Work Phone: noms FB PTComment on above:Right hip pain (Primary Dx); Femoral acetabular impingementStart: 10-11-2023 End: 95-66-8646bbtxxesrmdQpwh J Hussein PT Work Phone: NOTW FB PTComment on above:Right hip pain (Primary Dx); Femoral acetabular impingementStart: 10-11-2023 End: 03-67-9730Hafzcn flowsheetKyle J Hussein PT Work Phone: NOSZ FB PTStart: 10-11-2023 End: 05-98-7347Btxjdk flowsheetKyle J Hussein PT Work Phone: NODD FB PTStart: 10-05-2023 End: 18-33-9108vbkvikmzipJdyh J Hussein PT Work Phone: NOMS FB PTComment on above:Right hip pain (Primary Dx); Femoral acetabular impingementStart: 10-04-2023 End: 53-21-2496ekjkjgndfnXqho J Hussein PT Work Phone: NOMS FB PTComment on above:Right hip pain (Primary Dx); Femoral acetabular impingementStart: 10-04-2023 End: 22-42-4704Mazglh flowsheetKyle J Hussein PT Work Phone: noms FB PTStart: 10-04-2023 End: 90-52-4042Adrpty flowsheetKyle J Hussein PT Work Phone: noms FB PTStart: 09-10-2023 End: 28-89-5511cjsizvvdghXXKAR KRPATAFacility:[facility] Centertart: 09-10-2023 End: 21-12-4661Rmwiqht encounter procedureBrad Hanna MD Work Phone: General SurgeryComment on above:Pain in left hip (Primary Dx)Start: 08-15-2023 End: 01-97-9580ovsslsmkeyPQPQXOIE MILLERFacility:[facility] Centertart: 08-15-2023 End: 89-37-1700Klclbzbpkf hospital [facility] by [facility]Mem[facility] Christopher Work Phone: RadiologyComment on above:Left inguinal pain [R10.32] Start: 70-54-7908Mcdndtrwp encounterAndrew CayetanoadiologyComment on above: AppointmentLeft inguinal pain (Primary Dx)Start: 07-10-2023 End: 89-41-4530Gcrobxv encounter procedureLuther Ann MD Work Phone: General SurgeryComment on above:Left inguinal pain (Primary Dx)Start: 07-10-2023 End: 03-48-5389pegjvvgmyqBLENUBKX T. MILLERFacility:[facility] Start: 09-29-2022 End: 52-48-3700aybldazpofPequhqgh Ball Other [facility] Pearlfection Other Start: 03-63-6189Ghsfjhlpx encounterBentoyin BallBROOKG Ball Medical ClinicStart: 09-25-2022 End: 83-54-6769uhrfmbdfyeWknuheyc Ball Other [facility] Pearlfection Other start: 98-33-1551Fablhtqyb for general adult medical examination without abnormal findingsLuther Morris Medical ClinicStart: 42-71-2277Csfmdgqtu encounterBevikram Morris Medical ClinicStart: 09-22-2022 End: 39-29-2900ggqnmfuwweSmcdfame Ball Other rt Pearlfection Other Start: 82-38-4964Tmriwqtdm for general adult medical examination without abnormal findingsLuther Morris Medical ClinicStart: 30-43-6960Xjzyyiqv preventive med est patient 40-64yrsBevikram Morris Medical ClinicStart: 12-16-2021 End: 26-62-7366iscbyzbnfoCI BENJAMIN BALLFacility:T6Vpajw: 06-17-2021 End: 95-78-3166plryjqdqunON BENJAMIN BALLFacility:R9Zewbc: 64-88-1332Djjtifkyj for general adult medical examination without abnormal findingsDR LUTHER MORRIS [facility] Hospitaltart: 06-07-2021 End: 85-32-4067moigxyjdptLP BENJAMIN BALLFacility:Q1Pklcn: 06-07-2021 End: 28-05-3036Rwiinwlvy for general adult medical examination without abnormal findingsDR LUTHER MORRISFacility:A3Ztruv: 02-15-2021 End: 15-60-0971exzfjoqpynCW BENJAMIN BALLFacility:E8Fixql: 01-39-2950cttojngpba DR LUTHER MORRISFacility:H1 Procedures DateProcedureProcedure DetailPerforming ClinicianStart: 78-86-0386Yrufoj-up visitFollow-upANIL K GUPTAStart: 00-76-8266Df compl joint r-t w/image documentationBevikram Ann MD Work Phone: Start: 48-91-3329DjwhedgntswVofyhqv NILL Start: 76-61-7222PepiekktjkeDkrdhpoo Lee LOIDA Work Phone: Start: 70-10-3391XupgqiyshnxHlny Hussein PT Work Phone: Start: 62-69-3155YFA screeningDR LUTHER Stanton on above:Performed By: #### PSASC #### [facility] [address] [place] [address] Dr. Gala JohnsonAcetabular labrum tear (disorder)Oren RONDONL Plan of Treatment DateCare ActivityDetailAuthorStart: 75-06-6500Kigvcsjjn for malignant neoplasm of colonNOMS HealthcareStart: 74-01-7612Ehmlnmpxf for malignant neoplasm of colonNOMS HealthcareStart: 86-66-8710Dljzg BMI ScreeningAdult BMI Screening [facility] SystemStart: 59-00-5349Pdpfm BMI ScreeningAdult BMI Screening [facility] SystemStart: 56-28-1808Iuqilaj ScreeningTobacco Screening [facility] SystemStart: 34-12-1505Hgcsm BMI ScreeningAdult BMI Screening [facility] SystemStart: 30-76-4042Yagju BMI ScreeningAdult BMI Screening [facility] SystemStart: 01-62-7315Unibzry ScreeningTobacco Screening [facility] SystemStart: 99-98-5529Dgsycmn ScreeningTobacco Screening [facility] SystemStart: 10-82-6366Tgead BMI ScreeningAdult BMI Screening [facility] SystemStart: 36-53-6495Wvuheat ScreeningTobacco Screening [facility] SystemStart: 49-69-9579Zwmcp BMI ScreeningAdult BMI Screening [facility] SystemStart: 11-06-4671Gxbgl BMI ScreeningAdult BMI Screening [facility] SystemStart: 21-61-5697Skogacmym vaccinationProWvumedicine Barnesville Hospitalca [facility] SystemStart: 10-06-2024 End: 82-39-5990Clroepx encounter zulyliyct02/25/2025 1:40 PM EDT Office Visit [facility] [address] [place] [address] Jeana Pierce MD [address] [place] [address] [facility] SurgeonsStart: 09-04-2024 End: 21-02-7911dsjluikecj26/24/2025 5:00 PM EDT Treatment [facility] FB PT [address] [place] [address] Alejandra Lee, [employer] [address] [place] [address] NOMS FB PTStart: 09-02-2024 End: 57-05-8674lvlctypdoy22/22/2025 5:00 PM EDT Treatment [facility] FB PT [address] [place] [address] Lucy Fay PTANOMS FB PTStart: 08-25-2024 End: 34-50-3501Ffnsnnm encounter ogjchhxks21/14/2025 12:55 PM EDT Office Visit [facility] [address] [facility] [place] [address] Jeana Pierce MD [address] [place] [address] [facility] SurgeonsStart: 07-29-2024 End: 00-86-1074qcielbbxyj26/17/2025 5:30 PM EDT Treatment [facility] PT [address] [place] [address] Alejandra Lee, [employer] [address] [place] [address] Lizett DONAHUE PT Comment on above:ArrivedStart: 07-22-2024 End: 44-04-2316bpqdmgocpw17/10/2025 5:30 PM EDT Treatment [facility] PT [address] [place] [address] Alejandra Lee, [employer] [address] [place] [address] NOMS FB PTStart: 07-18-2024 End: 49-07-4978ibbbhemduz57/06/2025 1:30 PM EDT Treatment [facility] PT [address] [place] [address] Alejandra Lee, [employer] [address] [place] [address] NOMS FB PTStart: 07-10-2024 End: 48-13-3352mkcjwhhrtrHQXP FB PTComment on above:Left hip pain (Primary Dx) Start: 07-08-2024 End: 46-36-2844jkicfcrniwPMPN FB PTStart: 07-04-2024 End: 97-51-6213scfejogepj04/23/2025 1:30 PM EDT Treatment [facility] FB PT [address] [place] [address] Alejandra Lee, [employer] [address] [place] [address] NOMS FB PTStart: 07-01-2024 End: 11-36-4760Uroabbn encounter negaoghws11/20/2025 12:30 PM EDT Office Visit [facility] [address] [address] Jeana Pierce MD [address] [place] [address] [facility]geonsStart: 07-01-2024 End: 19-77-4531zlcuruhfzeKDBD FB PTComment on above:ArrivedStart: 06-27-2024 End: 86-05-7662hxybzkqrsr10/16/2025 1:00 PM EDT Treatment [facility] PT [address] [place] [address] Micheal Savage, PT [address] [place] [address] NOMS FB PTStart: 06-24-2024 End: 79-96-6846mdopvycjjm83/13/2025 5:00 PM EDT Treatment [facility] PT [address] [place] [address] Lucy Fay PTANOMS FB PTStart: 06-20-2024 End: 29-74-1257ylywbnkmheXFTL FB PTComment on above:ArrivedStart: 06-17-2024 End: 85-61-5150kgtpcosxxy75/06/2025 5:00 PM EDT Treatment [facility] PT [address] [place] [address] Lucy Fay PTANOMS FB PTStart: 06-13-2024 End: 12-20-8747iprqaxuhka74/02/2025 1:00 PM EDT Treatment [facility] PT [address] [place] [address] Micheal Savage, PT [address] [place] [address] NOMS FB PTStart: 06-03-2024 End: 84-58-1955Gsskpkg encounter laavyeqpu89/22/2025 1:45 PM EDT Office Visit [facility] [address] [place] [address] Jeana Pierce MD [address] [place] [address] [facility]geonsStart: 06-03-2024 End: 21-52-6279lhzjrcfity27/22/2025 9:00 AM EDT Evaluation [facility] [address] [place] [address] Micheal Savage, PT [address] [place] [address] ArrivedNOMS FB PT Comment on above:ArrivedStart: 05-21-2024 End: 90-46-0908Yubijivwx to same day surgery zfwtrd6705/21/2024 11:45 AM EDT - 05/21/2024 2:15 PM EDT Surgery [facility] [address] [place], [place] [phone] Jeana Pierce MD [address] [place] [address] ARTHROSCOPIC FEMOROPLASTY HIP [96857 (CPT )][facility] SurgeryComment on above:ARTHROSCOPIC FEMOROPLASTY HIP [55812 (CPT )] Start: 05-21-2024 End: 90-21-7786Jgorglsphol hip w/femoroplastyARTHROSCOPIC FEMOROPLASTY HIP 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 05/21/2024 11:45 AM [facility]Start: 05-21-2024 End: 06-65-9716Twentmkqegr hip w/labral repairARTHROSCOPIC REPAIR LABRUM HIP 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 05/21/2024 11:45 AM EDTCROSS FORK SURGERYStart: 89-17-8156Vutkhcphrf hospital visit by /09/2025 11:45 AM EDT Hospital Encounter [facility] [address] [place], [place] [address] Jeana Pierce MD [address] [place] [address] [facility] SurgeryStart: 05-07-2024 End: 16-56-2004Fuxxwsbrd to lqaijkzdoahla17/26/2025 9:30 AM EDT Support Visit [facility] [address] [address] [address] Start: 12-18-2023 End: 20-03-6227Rieqbwkstec MR/CT inj arthrogram hip left with guidance Fluoroscopy MR/CT inj arthrogram hip left with guidance Imaging Routine Femoral acetabular impingement Expected: 12/18/2023, Expires: 12/17/2024[facility] Work Phone: Comment on above:Expected: 12/18/2023, Expires: 12/17/2024Start: 12-18-2023 End: 98-17-7898CH Hip - left ArthrogramMR arthrogram hip left with contrast Imaging Routine Femoral acetabular impingement Pain of left hip Expected: 12/18/2023, Expires: 12/17/2024ProSelect [facility] SystemComment on above:Expected: 12/18/2023, Expires: 12/17/2024Start: 10-26-2023 End: 46-97-0517ymmdhhvbfuORQL FB PTComment on above:ArrivedStart: 10-23-2023 End: 80-87-4364pqsprtlrkw62/10/2024 3:00 PM EDT Treatment [facility] [address] [place] [address] Alejandra Lee, [employer]ERSON [employer] [address] [place] [address] NOMS FB PTStart: 10-19-2023 End: 73-59-4042pqxcnrdkik78/06/2024 1:30 PM EDT Treatment [facility] [address] [place] [address] Alejandra Lee, [employer] [address] [place] [address] NOMS FB PTStart: 10-18-2023 End: 89-87-2745zezyuknjlmFYUY FB PTStart: 45-23-3907TEDRN-19 Vaccine ( season)COVID-19 Vaccine ( season)[facility] SystemStart: 46-17-6037Guyjoosxk vaccinationWayne Hospitaltart: 10-12-2023 End: 09-76-3853siyqfofwaf31/30/2024 1:30 PM EDT Treatment [facility] FB PT [address] [place] [address] Micheal Savage, PT [address] [place] [address] NOMS FB PTStart: 10-11-2023 End: 23-85-9723nvlcpfxheg18/29/2024 5:00 PM EDT Treatment [facility] PT [address] [place] [address] Micheal Savage, PT [address] [place] [address] NOMS FB PTStart: 10-05-2023 End: 11-29-8419haurupqdth01/23/2024 1:30 PM EDT Treatment [facility] PT [address] [place] [address] Micheal Savage, PT [address] [place] [address] NOMS FB PTStart: 10-04-2023 End: 87-53-4690iewobpniwr43/22/2024 5:30 PM EDT Treatment [facility] PT [address] [place] [address] Micheal Savage, PT [address] [place] [address] ArrivedNOMS FB PT Comment on above:ArrivedStart: 09-10-2023 End: 86-71-9728Wfcopxa encounter twnzlabpi61/29/2024 10:30 AM EDT Office Visit General Surgery [address] [address] rBad Hanna MD [address] [place] [address] groin painGeneral SurgeryComment on above:groin painStart: 08-15-2023 End: 40-19-4574Murfvqg encounter tvyrrdmcw98/03/2024 1:35 PM EDT Appointment Radiology [address] [place], [place] [address] NEW ORDER FORTHCOMINGRadiologyComment on above:NEW ORDER FORTHCOMINGStart: 08-10-2023 End: 27-55-3273NF Pelvis limitedUS PELVIS LTD Radiology Routine Left inguinal pain Expected: 08/10/2023, Expires: 08/08/2024[facility] Work Phone: Comment on above:Expected: 08/10/2023, Expires: 08/08/2024Start: 64-48-7553Xroqpsbtod Health ScreeningBehavioral Health ScreeningWayne Hospitaltart: 30-51-9238Zvpss-19 Vaccine ( season) Covid-19 Vaccine ( season)[facility]: 82-01-2273Xzvmxtty ScreeningDiabetes ScreeningWayne Hospitaltart: 46-89-3383Fuvsbtebb for malignant neoplasm of colonWayne Hospitaltart: 78-03-4797Pdxwx panelLipid ScreeningWayne Hospitaltart: 97-30-2250IUfZ,Tdap and Td Vaccines (1 - Tdap) DTaP,Tdap and Td Vaccines (1 - Tdap)[facility] HospitalSNADEC FiscalNote SystemStart: 12-09-1995 Hepatitis B Vaccine (1 of 3 - 19+ 3-dose series)Hepatitis B Vaccine (1 of 3 - 19+ 3-dose series)[facility]art: 25-03-9335Wblna microalbumin profile DTaP,Tdap,Td Vaccine (1 - Tdap)[facility]: 93-34-8370Nywkl BMI Follow Up PlanAdult BMI Follow Up PlanECU Healthtart: 45-84-6483Bqpcord ScreeningAnxiety ScreeningWayne Hospitaltart: 15-41-9016Phofptllks Screening Depression ScreeningWayne Hospitaltart: 63-20-1851Azxnivaxx C screening Hepatitis C ScreeningWayne Hospitaltart: 95-55-2727EIE screeningHIV Screening [facility] Hospitaltart: 80-54-7535Cmsvozlrgb ScreeningDepression Screening [facility] Healt[facility]art: 71-90-5626Qbewqef ScreeningTobacco Screening [facility] Healthtart: 29-53-3291Hmimfukof for malignant neoplasm of colonNOTN HealthcareComprehensive metabolic 2000 panel - Serum or Plasma [facility] HospitalFibrin D-dimer [Presence] in Platelet poor plasma by Latex agglutinationKnox Community HospitalUS Heart TransthoracicKnox Community Hospital End: 99-37-3359DB Hip - leftUS HIP LEFT Radiology Routine Left inguinal pain 1 Occurrences starting 07/12/2023 until 08/09/2024[facility] Work Phone: Comment on above:1 Occurrences starting 07/12/2023 until 08/09/2024XR Chest 2 [facility] Immunizations Immunization DateImmunizationNotesCare AkuaokunXewhvfkq72-55-7724qmlldwv toxoid, reduced diphtheria toxoid, and acellular pertussis vaccine, adsorbedBenkarinamin Ball DO Work Phone: [facility]10-30-2024influenza, injectable, madin billy canine kidney, preservative freeBenjamin Ball DO Work Phone: [facility]10-30-2024influenza, seasonal, injectable, preservative freeKyle Hussein PT Work Phone: [facility] JosephPjxmwpzrwe75-88-4818kqrhsckmj virus vaccine, unspecified formulationJeana Pierce MD Work Phone: [facility] HospitalNtmkcq23-49-8526ZRIBW-86 mRNA-1273 (Moderna)Luther Morris DO Work Phone: [facility]01-28-2021COVID-19 mRNA-1273 (Moderna)Ltuher Morris DO Work Phone: [facility]12-30-2020COVID-19 mRNA-1273 (Moderna)Luther Morris DO Work Phone: [facility] Payers DatePayer CategoryPayerPolicy [id number] Cross Blue Shield Managed Care - Other [id number]enta Health Center [id number] 2..840.4.426876.91440305-26-0056[employer] Insurance 1.2.840.736897.1.13.693.2.7.9.404021.396355.38961-44-3107Ttumien 1.2.840.792193.1.13.159.2.7.3.52164[id number] [id number] 2.840.1.655245.3.57[id number] 2..840.1.761227.3.57[id number] 2.16.840.1.771953.3.57[id number] 2.16.840.1.993277.3.57[id number] 2.16.840.1.827186.3.57[id number] 2.16.840.1.388606.3.57[id number] 2.16.840.1.152623.3.57[id number] 2.16.840.1.340227.3.57[id number] 2.16.840.1.178927.3.579.[id number] 2..840.1.218583.3.57[id number] 2..840.1.381759.3.57[id number] 2.16.840.1.942795.3.57[id number] 2..840.1.959226.3.57[id number] 2..840.1.769194.3.579.[id number] 2..840.1.919611.3.579.[id number] 2..840.1.979399.3.57[id number] 2.840.1.395932.3.57[id number] 2.840.1.714522.3.579.2.85672-16-5263Bgkp-[id number] 8nho0ll5-s0zb-8q85-5u90-[id number] 2.16.840.1.138422.3.579.2.531 Social History DateTypeDetailFacilityStart: 07-10-2023 End: 21-37-5051Jny Assigned At [facility] Pearlfection Other Start: 07-10-2023 End: 64-65-8036Mwovocx smoking status NHISNever smoked tobaccoOhio State University Wexner Medical Center Start: 11-22-2022 End: 14-07-9737Vqdldja use and exposureSmokeless tobacco non-userWayne Hospitaltart: 07-10-2023 End: 70-75-7444Loivzbz of Social functionOhio State University Wexner Medical CenterNational Score (1-100), lower number is lower duod57WvvdcqztiWayne Hospitaltart: 97-09-0754Fbz Assigned At BirthNot on fileWayne Hospitaltart: 11-22-2022 End: 62-21-1433Sqzlbmtny beverage intakeCurrent drinker of alcohol (finding)[facility] JosephStart: 50-62-7677Bkk assigned at [facility] ClinicStart: 05-60-8634Xdmhpv identityIdentifies as male gender (finding)[facility] Start: 99-86-5832Ngqnon orientationHeterosexual (finding)[facility] OhioTobacco smoking status NHISTobacco smoking consumption unknownDayton Osteopathic Hospital FiscalNote [facility] Work Phone: Start: 22-36-7916CaeSldw (finding)[facility] FiscalNote Huntington Hospitalexual OrientationSelect Medical Specialty Hospital - [facility] General Surgery [place] NEGATED: Highlighted rowStart: NINFHistory of tobacco usePassive smokerProUniversity [facility]als [facility] Clinical Notes 09-22-2022 to 12-05-2024 Note Date & OpqsQfolZgkrdbbz53-42-3097 NoteGeneral Surgery Office/Clinic Note Chief Complaint consultation for anemia HPI Staff 48 year old male presents on consultation from Dr. Morris for iron deficiency anemia. Labs completed 11/04/24- H/H 10.9 and 35.9. Labs completed 11/18/24- H/H 12.4 and 40.9, iron 26. Normal TIBC, ferritin and iron saturation. Verbalized was taking daily Motrin for several weeks, he is no longer taking anti- inflammatories. Denies GI complaints. Denies rectal bleeding. Does report SOB, chest pain and exercise intolerance. Last colonoscopy completed 12/2022- normal. History of Present Illness 48 yo male with h/o asthma, bph, GERD, referred for iron deficiency anemia; normal h/h in September, when donated blood, end of October h/h 10.9/35.9; began iron supplement; repeat h/h 11/18/24 12.4/40.9; patient has chronic GERD; had increasing shortness of breath, lightheadedness and exercise intolerance that led to checking H/H; takes Motrin daily since hip surgery in May; has been on Nexium chronically; no change in bms, no melena or hematochezia; normal colonoscopy 2 years ago; noticed some mild supraclavicular adenopathy bilaterally recently; has ct scan pending. no asa use; no tobacco use; no fmhx of GI malignancy or IBD. Review of Systems PHQ Score Initial Depression Screen Score: 0 SCORE ROS - Provider Constitutional: no fever, no sweats, no weight loss. Eyes: no glasses, no blurred vision, no visual loss. ENMT: no dentures, no hoarseness, no swallowing difficulties, no hearing loss, no ear infection(s),no nose bleeds. Cardiovascular: normal blood pressure, no chest pain, regular heartbeat, no heart murmur. Respiratory: no shortness of breath, no cough, no asthma, no wheezing. Gastrointestinal: no nausea, no vomiting, no diarrhea, no constipation, no blood in stool, no change in bowel habits, no abdominal pain, no hepatitis. Genitourinary: no kidney stones, no urine infection, no dysuria. Musculoskeletal: no pain, no weakness. Skin: no changing moles, no rash, no skin lumps. Neurologic: no seizures, no epilepsy, no headache. Psychiatric: no emotional or psychiatric problem. Heme/Lymph: no bleeding problems, no anemia, no blood clots, no transfusions. Allergy/Immunologic: no swollen lymph nodes/glands, no IV drug abuse. Other: Additional ROS info: Except as noted in the above Review of Systems and in the History of Present Illness, all other systems have been reviewed and are negative or noncontributory. Physical Exam Vitals & Measurements HR: 83(Peripheral) RR: 16 BP: 119/82 HT: 68 in HT: 172.72 cm WT: 89.0 kg WT: 196.211 lb BMI: 29.83 HEENT: normal conjunctiva, sclera clear, no scleral icterus, EOM intact, PERRLA, oral mucosa moist without lesions. Neck: trachea midline, no mass, symmetric, no thyromegaly or nodules, no adenopathy Respiratory: lungs CTA, respirations non labored. Cardiovascular: regular rate and rhythm, no murmur, no pedal edema or varicosities. Gastrointestinal: soft, non distended, no tenderness, no masses, no palpable hernias, diastasis recti no, no hepatosplenomegaly; normal bs Musculoskeletal: normal gait, digits and nails without infection, nodes, cyanosis, clubbing. Skin: no rashes, no lesions, no ulcers, no subcutaneous nodules, induration. Psychiatric/Neuro: oriented to time, place, person, judgement normal, affect appropriate for age, insight intact, no focal deficits. Tests: labs reviewed, review of old records completed , Discussed surgical options, risks, and possible complications with patient. Assessment/Plan 1. Gastroesophageal reflux disease without esophagitis (K21.9: Gastro-esophageal reflux disease without esophagitis) plan EGD with anesthesia, for further evaluation, informed consent obtained. 2. Iron deficiency anemia (D50.9: Iron deficiency anemia, unspecified) see # 1 Follow-up No qualifying data available Problem List/Past Medical History Ongoing Allergic rhinitis Asthma BMI 29.0-29.9,adult BPH (benign prostatic hyperplasia) Gastroesophageal reflux disease without esophagitis Heart murmur Iron deficiency anemia Overweight Historical No qualifying data Procedure/Surgical History Colonoscopy (12/21/2022), Tear of the acetabular labrum. Medications Albuterol (Eqv-ProAir HFA), 2 puff(s), Inhalation, q6hr, PRN ferrous sulfate 325 mg Tab, 325 mg= 1 tab(s), Oral, Daily Nexium 40 mg Cap-EC, 40 mg= 1 cap(s), Oral, Daily Singulair 10 mg Tab, 10 mg= 1 tab(s), Oral, Daily tamsulosin, as directed telmisartan 20 mg oral tablet, 20 mg= 1 tab(s), Oral, Daily Allergies No Known Allergies No Known Medication Allergies Social History Alcohol Current. Beer. 1-2 times per month., 12/02/2024 Substance Abuse Never., 12/02/2024 Tobacco Never (less than 100 in lifetime) Tobacco Use:. Never Smokeless Tobacco Use:., 12/05/2024 Family History Aneurysm: Mother. Hypercholesterolemia: Father. Hypertension: Mother. Multiple sclerosis: Father. Primary malign (more content not included)...[facility] HospitalComment on above:Result Comment: Electronically Signed By: ARTHUR NICOLE, Oren Maxwell\Date and Time Signed: 12/05/24 11:52 [id number] Evaluation note* Diagnosis Onset Date Resolution Status Admit Date Chest pain acuteSeptember 2024 1:53pmDyspneaacuteSeptember 2024 1:53pmAsthma acuteOctober 2024 2:48pmBenign prostatic hyperplasia with lower urinary tract symptomsacuteOctober 2024 2:48pmGERD (gastroesophageal reflux disease)acuteOctober 2024 2:48pmIron deficiency anemiaacuteOctober 2024 2:48pmLeft hip impingement syndromeacuteOctober 2024 2:48pmScreening PSA (prostate specific antigen)acuteOctober 2024 2:48pmWellness examinationacuteOctober 2024 2:48pm [facility] Work Phone: [phone]) 974-813307-14-2025 History of Present illness Narrative* Jeana Pierce MD - 08/25/2024 12:55 PM EDT [facility] [address] [facility] [address] Name: Henrik Menjivar : 1975 Chief Complaint Patient presents with Left Hip - Follow-up Left hip scope 49/25 PT 2 times/week plus hep going well Subjective Henrik Menjivar is a 48 y.o. year old male who presents to the office today for recheck of hisleft hip. He underwent left hip arthroscopy with acetabular plasty, labrum debridement, femoral osteochondroplasty, loose body removal and capsular repair on 05/21/2024. He is attending physical therapy twice a week. Overall states he is doing well. He recently spent some time in [place] where he did a lot of walking, [...] of the aforementioned history prepared by the [place] practice provider, and I personally performed the [...] needed all questions answered.. documented in this encounterClerm[facility]06-06-[facility] History of Present illness Narrative* Micheal Savage, PT - 07/18/2024 7:30 AM EDT Images from the original note were not [...] labral repair, capsular repair, femoral osteochondroplasty, acetabular rimtrim on 05/21/24 Current deficits: pain, weakness, decreased ROM/flexibility, impaired gait and functional mobility Pain: pt reports some increased L hip pain/soreness last few days went to [place] for [facility] college orientation a lot of sitting and walk and long car ride, recovering over last couple days, better this a.m. 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 documented in this [facility]05-20-2025 History of Present illness Narrative* Jeana Pierce MD - 07/01/2024 12:30 PM EDT [facility] [address] [place] [facility] [address] Name: Henrik Menjivar : 1975 Chief Complaint Patient presents with Left Hip - Post-op Left hip scope 05/21/24 PT 2 times/week going well Subjective: Henrik Menjivar is a 48 y.o. year old male who presents to the office today s/p left hip arthroscopy with acetabuloplasty with labrum debridement, femoral osteochondroplasty, loose body removal,capsular repair performed on 05/21/2024. Today, he states he is doing well postoperatively. He is engaging in physical therapy twice a week. He occasionally takes zeln-[id number]-[id number] medication as needed.He is noticing improvements in symptoms overall. He rates his symptoms today 2. He denies any fever or chills. No [...] abduction and adduction with 5/5 strength against resistance.He can perform a straight leg raise. Distal [...] were addressed and answered. 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 Also added LTRs and ADOLFO heel [...] no concerns to date. documented in this encounterMosaic Life [facility] at St. 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 documented in this encounterMosaic Life Care at St. 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 documented in this encounterMosaic Life Care at St. 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 documented in this encounterMosaic Life Care at St. JosephPdidsdngbd83-42-0850 History of Present illness Narrative* Jeana Pierce MD - 06/03/2024 1:45 PM EDT [facility] [address] [facility] [address] Name: Henrik Menjivar : 1975 Date of surgery: 05/21/2024 Chief Complaint Patient presents with Left Hip - Post-op Fp left hip scope 05/21/24 PT started today Subjective Henrik Menjivar is a 48 y.o. year old male who presents to the office today s/p left hip scopeperformed 05/21/2024. The patient had a debridement of the labrum as well as loose body removal. The patient states overall he is doing well 2 weeks postoperatively. He is mostly taking naproxen and Tylenol for pain. He is still using his crutches. He did start physical therapy today. He denies anyfever or chills. No chest pain or SOB. [...] infection. Patient is able to perform a straightleg raise today. Patient is able to flex [...] 4 weeks for reassessment. 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 Therapeutic Exercise: per DEREJE grid, ROM, flexibility, strength, endurance x 20 min sup, advised on limiting ROM with IR/ER, abd, flex today and keeping all pain free. Tolerated all well no c/o increased pain Gait Trainin# FFWBing only mendy crutches through 2 weeks per protocol and pending pt discussionwith later today at follow-up appt. Re-add PRN. [...] Please sign below. Date: documented in this encounterMosaic Life Care at St. JosephDqagkaaqoq04-82-0527 History of Present illness Narrative* Jeana Pierce MD - 05/05/2024 10:45 AM EDT Chief complaint: Chief Complaint Patient presents with Left Hip - Pain, Follow-up Left hip scope scheduled for 05/21/24. Left hip pain History of present illness: the patient presents clinic today for follow-up evaluation of his left hip. 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 Reports continued left hip painit is becoming more frequent and severe. Pain is localized to the groin. Pain with sitting standingtwisting and pivoting. Interested in discussing surgery. This is tentatively plan a few weeks from now. Physical examination: On inspection of his gait pattern he has a nonantalgic gait he does have painwith combined flexion adduction internal rotation testing. 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 Tonus grade 1 this is myindependent interpretation. Assessment/plan/medical decision making: Left hip pain. [...] surgery all questions answered. documented in this encounterClermont [facility]12-11-2024 Miscellaneous Notes* Telephone Encounter - Jeana Pierce MD - 01/23/2024 5:00 PM EST I spoke with the patient regarding the [...] for surgical planning purposes. documented in this encounterGreene Memorial HospitalAcamica12-11-2024 Telephone encounter Note* Telephone Encounter - Jeana Pierce MD - 01/23/2024 5:00 PM EST I spoke with the patient regarding the [...] the left hip for surgical planning purposes. 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 male who presents to the office today for his left hip. Patient is a new patient to the practice. Patient has had pain in the left hip for 2-1/2 years. He denies any specific injury. 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 Left hip pain. Conservativemanagement concerned for labral tear Plan: I, JEANA PIERCE MD, personally performed the face to face evaluation on this patient. I discussed with the patient and confirmed the accuracy and completeness of the aforementioned history prepared by the [place] practice provider, and I personally performed the clinical examination of the patient. I discussed the treatment plan with the patient. Reviewed his clinical findings in detail today onexamination of his left hip he has severe pain with combined flexion adduction internal rotation testing pain with ADOLFO testing. Neurovascular intact distally with good core strength no tenderness at the pubis. He has been managed up to this point with activity modifications oral anti-inflammatorymedicines injection and physical therapy. I am concerned for labral tear of his left hip I therefore like to obtain an MRI arthrogram of the left hip to evaluate for labral tear I will then call him with the results once it is completed all questions answered.. 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 [facility] Precautions: WILBER Objective + FADIR + [...] tear due to WILBER. documented in this encounterMosaic Life Care at St. 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 [facility] Precautions: WILBER Objective + FADIR + [...] level Modalities: CP declined to get to daughters volleyball game Assessment/Plan R hip pain, decreased ROM, strength causing increased difficulty with ADLs/self care, decreased QOL Tolerated all well min increased soreness with DEREJE no issues with STM/massage, still have Concerns of potential labral tear due to WILBER. documented in this encounterMosaic Life Care at St. 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 [facility] [facility] Precautions: WILBER Objective + FADIR + [...] tear due to WILBER. documented in this encounterMosaic Life Care at St. 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 Precautions: WILBER Objective + FADIR + [...] innominate rotation x 5 min fully corrected, re- add PROM and LA mobs next session Therapeutic [...] pelvis level and leg length = leaving, declinedCP to get to daughters volleyball game will ice at home. Concerns of potential labral tear due to WILBER. documented in this encounterMosaic Life Care at St. JosephNgzwyooefq13-34-5525 NoteHNO ID: [id number] Author: BRAD HANNA MD Service: ? Author Type: Physician Type: Progress Notes Filed: 09/14/2023 14:54 Note Text: [facility] Abdominal [facility] - HISTORY AND PHYSICAL [...] no inguinal hernia found US - 08/15/23 [id number] tendinosis adductor origin without tear or hyperemia. [...] patient's care with the resident. Signature: BRAD HANNA, [facility]07-29-2024 History of Present illness Narrative* Brad Hanna MD - 09/10/2023 11:00 AM EDT [facility] Abdominal [facility] - HISTORY AND PHYSICAL Chief Complaint: Groin Pain HPI: Henrik Menjivar is a 47 year old male with PMHx of BPH who presents as referral from Dr. Annfor evaluation of chronic left groin pain, beginning 2 years ago. He denies preceding trauma to area and denies bulging to area. He was previously seen by PCP who ordered CT A/P and MRI Pelvis, whichwere without acute abnormalities. He tried 6 weeks [...] no inguinal hernia found US - 08/15/23 [id number]-zk-ovyhumqu tendinosis adductor origin without tear or hyperemia. [...] the case and management of the patient's carewith the resident. Signature: BRAD HANNA MD documented in this encounterOhio [facility]07-29-2024 Nurse Note* Sindhu Stephens MA - 09/10/2023 10:28 AM EDT What is the reason for your visit today? Consult Who is your referring physician? None Are you having poor oral intake? NO Have you had unintentional weight loss of 15 lbs/7 Kg in the last 3-6 months? NO Bowels: regular Wound: None Temperature: No Drains: No [facility]07-29-2024 Nurse Note* Sindhu Stephens MA - 09/10/2023 10:28 AM EDT What is the reason for your visit today? Consult Who is your referring physician? None Are you having poor oral intake? NO Have you had unintentional weight loss of 15 lbs/7 Kg in the last 3-6 months? NO Bowels: regular Wound: None Temperature: No Drains: No documented in this encounterOhio State University [facility]05-29-2024 Telephone encounter Note * Telephone Encounter - Natalia Oliveira - 07/11/2023 3:06 PM EDT Patient has been scheduled for their [facility]K US exam on 08/15/23 : 1:35 PM at [place]. [facility]05-29-2024 Miscellaneous Notes* Telephone Encounter - Natalia Oliveira - 07/11/2023 3:06 PM EDT Patient has been scheduled for their MS[facility] US exam on 08/15/23 : 1:35 PM at [place]. * Telephone Encounter - Natalia Oliveira - 07/11/2023 11:07 AM EDT Called patient on July 11, 2023 at 11:07 AM to schedule their MSK US exam. No answer, left VM, 1st attempt. Left VM stating [facility] US department will call back. * Telephone Encounter - Jack France - 07/11/2023 9:44 AM EDT Visit Type: ANY MSK Visit Length: 45, 50 OR 60 MINUTES Order Name/Protocol: US HIP LEFT - MEDIAL; CONCERN FOR ATHLETIC PUBALGIA/SPORTS HERNIA Preferred Provider: N/A Comment: Please ask if the patient has ever had any prior surgery to their LT GROIN. If so, upgradethe visit type to an MSK1 and notate the surgical hx in the Appointment Note. Do not link order for PELVIS [employer]TD. Correct order has been routed. Location: Depending on the surgical hx, this patient can have this exam performed at any of our three locations. Slot held: N/A documented in this encounterOhio State University [facility]05-29-2024 Telephone encounter Note * Telephone Encounter - Natalia Oliveira - 07/11/2023 11:07 AM EDT Called patient on July 11, 2023 at 11:07 AM to schedule their MSK US exam. No answer, left VM, 1st attempt. Left VM stating MSK US department will call back. [facility]05-29-2024 Telephone encounter Note* Telephone Encounter - Jack France - 07/11/2023 9:44 AM EDT Visit Type: ANY MSK Visit Length: 45, 50 OR 60 MINUTES Order Name/Protocol: US HIP LEFT - MEDIAL; CONCERN FOR ATHLETIC PUBALGIA/SPORTS HERNIA Preferred Provider: N/A Comment: Please ask if the patient has ever had any prior surgery to their LT GROIN. If so, upgradethe visit type to an MSK1 and notate the surgical hx in the Appointment Note. Do not link order forMusicIP PELVIS LTD. Correct order has been routed. Location: Depending on the surgical hx, this patient can have this exam performed at any of our three locations. Slot held: N/A [facility]05-28-2024 NoteHNO ID: [id number] Author: LUTHER ANN MD Service: ? Author [...] our notes. Patient consented for study? Not applicablePremier Health [facility]05-28-2024 History of Present illness Narrative* Luther Ann MD - 07/10/2023 10:41 AM EDT Consultation requested by Dr. Dionisio Callejas for [...] for study? Not applicable documented in this encounterOhio State University [facility]05-28-2024 History and physical note * Filomena Arreola MD - 07/10/2023 10:23 AM EDT [facility] Abdominal [facility] - HISTORY AND PHYSICAL Chief Complaint: [...] with x2/10 severity which is localized to theexternal inguinal ring. He confirms intermittent radiation to the left lower abdomen. He notes thispain is reproducible with palpation and also worsened [...] of left inguinal hernia as underlying source ofpain. Discussed possible etiologies of chronic pain, including [...] General Surgery Resident, PGY-1 07/10/2023 10:23 AM [facility]05-28-2024 History and physical note* Filomena Arreola MD - 07/10/2023 10:23 AM EDT [facility] - HISTORY AND PHYSICAL Chief Complaint: Chronic [...] with x2/10 severity which is localized to theexternal inguinal ring. He confirms intermittent radiation to the left lower abdomen. He notes thispain is reproducible with palpation and also worsened [...] of left inguinal hernia as underlying source ofpain. Discussed possible etiologies of chronic pain, including [...] PGY-1 07/10/2023 10:23 AM documented in this encounterOhio State [facility]05-28-2024 Nurse Note* Jacklyn Graf MA - 07/10/2023 10:06 AM EDT What is the reason for your visit today? Consult Who is your referring physician? Dr. Ann Are you having poor oral intake? NO Have you had unintentional weight loss of 15 lbs/7 Kg in the last 3-6 months? NO Bowels: regular Wound: clean & dry Temperature: No Drains: No [facility]05-28-2024 Nurse Note* Jacklyn Graf MA - 07/10/2023 10:06 AM EDT What is the reason for your visit today? Consult Who is your referring physician? Dr. Ann Are you having poor oral intake? NO Have you had unintentional weight loss of 15 lbs/7 Kg in the last 3-6 months? NO Bowels: regular Wound: clean & dry Temperature: No Drains: No documented in this encounterOhio State University [facility]08-14-2023 Evaluation note* Encounter Date Diagnosis Assessment Notes Treatment Notes Treatment Clinical Notes Sep, Wellness examination (ICD-10 - Z 00.00) [employer] Other 08-11-2023 Evaluation note* Encounter Date Diagnosis Assessment Notes Treatment Notes Treatment Clinical Notes Sep, Wellness examination (ICD-10 - Z 00.00) Healthy diet and exercise. Reviewed age-appropriate preventive testing recommended. Sep,enign prostatic hyperplasia with lower urinary tract symptoms (ICD- 10 - N40.1)Father w/ prostate cancer. Symptoms of BPH w/ hesitancy, weakened stream and nocturia. He denies dysuria or hematuria Initiate Flomax Sep,Hesitancy of micturition (ICD-10 - R39.11) Sep,Sports hernia, subsequent encounter (ICD-10 - S39.81XD)Interferes w/ exercise but otherwise tolerable. Subtle findings on MRI. If intolerable, refer to sports medicine/Orthopedics Sep,Screening PSA (prostate specific antigen) (ICD-10 - Z12.5) Sep,Screening for colon cancer (ICD-10 - Z12.11)Asymptomatic, low risk patient. Refer for screening colonoscopy [employer] Other Evaluation + Plan note No data available for this section [facility] [place] Evaluation noteNo InformationNort Pearlfection Other Evaluation note* Diagnosis Left inguinal pain- Primary Abdominal pain, left lower quadrant documented in this encounter [facility]* Diagnosis Left inguinal pain- Primary Abdominal pain, left lower quadrant documented in this encounter [facility] CenterEvaluation [facility]* Diagnosis Left inguinal pain Abdominal pain, left lower quadrant documented in this encounter [facility] CenterEvalubeebe healthcare note* Diagnosis Pain in left hip- Primary Pain in joint, pelvic region and thigh documented in this encounter [facility] CenterEvalubeebe healthcare note* Diagnosis Right hip pain- Primary Pain in joint, pelvic region and thigh Femoral acetabular impingement documented in this encounter [facility]* Diagnosis Right hip pain- Primary Pain in joint, pelvic region and thigh Femoral acetabular impingement documented in this encounter [facility] HealthcareEvaluation [facility]* Diagnosis Right hip pain- Primary Pain in joint, pelvic region and thigh Femoral acetabular impingement documented in this encounter [facility] HealthcareEvaluation note* Diagnosis Right hip pain- Primary Pain in joint, pelvic region and thigh Femoral acetabular impingement documented in this encounter [facility] HealthcareEvaluation note* Diagnosis Right hip pain- Primary Pain in joint, pelvic region and thigh Femoral acetabular impingement documented in this encounter [facility] HealthcareEvaluation note* Diagnosis Right hip pain- Primary Pain in joint, pelvic region and thigh Femoral acetabular impingement documented in this encounter [facility] HealthcareEvaluation note* Diagnosis Right hip pain- Primary Pain in joint, pelvic region and thigh Femoral acetabular impingement documented in this encounter [facility] HealthcareEvaluation note* Diagnosis Right hip pain- Primary Pain in joint, pelvic region and thigh Femoral acetabular impingement documented in this encounter [facility] HealthcareEvaluation note* Diagnosis Femoroacetabular impingement of left hip- Primary Left hip pain Pain in joint, pelvic region and thigh Femoral acetabular impingement Pain of left hip Left hip pain Pain in joint, pelvic region and thigh documented in this encounter [facility] SystemEvaluation note* Diagnosis 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- Primary 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 documented in this encounter [facility] SystemEvaluation note* Diagnosis 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- Primary 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 documented in this encounter [facility] SystemEvaluation note* Diagnosis Femoroacetabular impingement of left hip- Primary 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 documented in this encounter [facility] SystemEvaluation note* Diagnosis Left hip pain- Primary Pain in joint, pelvic region and thigh 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 documented in this encounter [facility] HealthcareEvaluation note* Diagnosis Left hip pain- Primary Pain in joint, pelvic region and thigh Left hip pain Pain in joint, pelvic region and thigh documented in this encounter [facility] SystemEvaluation note* Diagnosis Left hip pain- Primary Pain in joint, pelvic region and thigh 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 documented in this encounter [facility] HealthcareEvaluation note* Diagnosis Left hip pain- Primary Pain in joint, pelvic region and thigh 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 documented in this encounter [facility] HealthcareEvaluation note* Diagnosis Left hip pain- Primary Pain in joint, pelvic region and thigh 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 documented in this encounter [facility] HealthcareEvaluation note* Diagnosis Left hip pain- Primary Pain in joint, pelvic region and thigh 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 documented in this encounter [facility] HealthcareEvaluation note* Diagnosis Left hip pain- Primary Pain in joint, pelvic region and thigh 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 documented in this encounter [facility] HealthcareEvaluation note* Diagnosis Postoperative visit- Primary documented in this encounter [facility] SystemEvaluation note* Diagnosis Left hip pain- Primary Pain in joint, pelvic region and thigh 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 documented in this encounter [facility] HealthcareEvaluation note* Diagnosis Femoroacetabular impingement of left hip- Primary documented in this encounter [facility] SystemEvaluation note* Diagnosis Left hip pain- Primary Pain in joint, pelvic region and thigh 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 documented in this encounter [facility] HealthcareEvaluation noteNo assessment information availableOhio[facility] Hospital Work Phone: Evaluation note* Diagnosis Onset Date Resolution Status Admit Date Chest pain acuteSeptember 2024 1:53pmDyspneaacuteSeptember 2024 1:53pmMurmur acuteSeptember 2024 1:53pm [facility] Work Phone: History general Narrative - Reported* Type Description Date Medical History Allergic rhinitis due to pollen Medical HistoryGastro-esophageal reflux disease without esophagitisMedical HistoryBenign prostatic hyperplasia with lower urinary tract symptomsMedical HistoryAsthmatic bronchitis, mild intermittent, uncomplicated [employer] Other Hospital Discharge instructions No data available for this section [facility] [place] InstructionsNot on filedocumented in this encounter [facility] SystemInstructionsNot on filedocumented in this encounter [facility] SystemInstructionsNot on filedocumented in this encounter [facility] SystemInstructions* Pre-Procedure Instructions - Rosalva Westbrook RN - 05/07/2024 9:30 AM EDT Your surgery/procedure is scheduled at [facility] on 05/21/2024 at 1145 am Tentative arrival time 915 am per surgeon instructions You will receive a phone call from [facility] the day beforeyour surgery to verify your arrival time. [address] [place] [address]. Park in Entrance D. Report to the registration desk in the main lobby. If you have any questions prior to surgery, you may call Pre-Admission Clinic at [phone] between 7:30 am and 4:30 pm Sunday through Sunday. If you have any concerns the morning of surgery, please call the Pre-op Department at [phone]. Notify your SURGEON if you develop any [...] dermal piercings),hair extensions that contain metal, nail ethiopian, make-up, and contact lens. If you received [...] RIGHTS AND RESPONSIBILITIES As a patient at [facility], you have the right to: Receive medical care and be informed of who is taking care of you Be treated with dignity and respect Have a family member/sales representative public utilities of choice and your physician notified of your admission Receive information and actively participate in decisions about your care and treatment Refuse care, treatment and services Decide who may provide your support and speak for you Access christian and spiritual services Participate in ethical issues [...] of hospital charges and payment methods Patient/patient sales representative public utilities responsibilities are to: Provide information about health status to facilitate care, treatment and services Follow the treatment, plan, keep appointments and speak up when you do not understand the plan Respect the rights of other patients and healthcare personnel Follow organizational rules and regulations that support quality care and a safe environment Fulfill financial obligations as promptly as possible [facility] SystemInstructionsNot on filedocumented in this encounter [facility] Fiscal[employer] SystemInstructionsNot on filedocumented in this encounter [facility] SystemInstructionsNot on filedocumented in this encounter [facility] Pre-Procedure Instructions - Rosalva Westbrook RN - 05/07/2024 9:30 AM EDT Your surgery/procedure is scheduled at [facility] on 05/21/2024 at 1145 am Tentative arrival time 915 am per surgeon instructions You will receive a phone call from [facility] the day beforeyour surgery to verify your arrival time. [address] [place] [address]. Park in Entrance D. Report to the registration desk in the main lobby. If you have any questions prior to surgery, you may call Pre-Admission Clinic at [phone] between 7:30 am and 4:30 pm Sunday through Sunday. If you have any concerns the morning of surgery, please call the Pre-op Department at [phone]. Notify your SURGEON if you develop any [...] dermal piercings),hair extensions that contain metal, nail ethiopian, make-up, and contact lens. If you received [...] RIGHTS AND RESPONSIBILITIES As a patient at [facility], you have the right to: Receive medical care and be informed of who is taking care of you Be treated with dignity and respect Have a family member/sales representative public utilities of choice and your physician notified of your admission Receive information and actively participate in decisions about your care and treatment Refuse care, treatment and services Decide who may provide your support and speak for you Access christian and spiritual services Participate in ethical issues [...] of hospital charges and payment methods Patient/patient sales representative public utilities responsibilities are to: Provide information about health status to facilitate care, treatment and services Follow the treatment, plan, keep appointments and speak up when you do not understand the plan Respect the rights of other patients and healthcare personnel Follow organizational rules and regulations that support quality care and a safe environment Fulfill financial obligations as promptly as possible [facility] SystemProgress note No data available for this section [facility] [place] Reason for referral (narrative)* Reason Referral for screeni ng colonoscopy Diagnosis 1 Screening for colon cancer (Z12.11) Referral Organization [facility] florentino Referring Provider First Name Luther Referring Provider Last Name Arturo Referring Provider Specialty Internal Me dicine Ref[facility] Referred Provider Dionisio Callejas Referred Address [address] [place], [place],[address] Referred Provider Specialty Surgery Referral Priority Routine General Notes Dr. Menjivar is being referred for a screening colonoscopy. He is an asymptomatic, low risk patient. He denies family history for colon cancer or polyps. He denies change in appetite, weight or bowel habits. He denies abdominal pain, heartburn or dysphagia. He denies melena or hematochezia. [employer] Other Reason for referral (narrative)* Diagnostic Procedure Only (Routine) - Pending ReviewSpecialtyDiagnoses / ProceduresReferred By ContactReferred To [facility] Diagnoses Left inguinal pain Procedures US PELVIS LTD US PELVIC NONOBSTETRIC IMAGE DCMTN LIMITED/F/U Luther Ann MD [address] [place] [address] [facility] [place] [address] Referral IDStatusReasonStart DateExpiration DateVisits RequestedVisits [id number] Review Auto-Generated Referral T [facility] for referral (narrative)* Diagnostic Procedure Only (Routine) - Pending ReviewSpecialtyDiagnoses / ProceduresReferred By Contact Referred To [facility] Diagnoses Left inguinal pain Procedures US HIP LEFT US COMPL JOINT R-T W/IMAGE DOCUMENTATION Luther Ann MD [address] [place] [address] [place] [address] Referral IDStatusReasonStart DateExpiration DateVisits RequestedVisits [id number] Review Auto-Generated Referral T [facility] for referral (narrative)* Diagnostic Procedure Only (Routine) - ClosedSpecialtyDiagnoses / ProceduresReferred By ContactReferred To [facility] Diagnoses Left inguinal pain Procedures US HIP LEFT US COMPL JOINT R-T W/IMAGE DOCUMENTATION Luther Ann MD [address] [place] [id number] Us Imaging [facility] Referral IDStatusReasonStart DateExpiration DateVisits RequestedVisits [id number] Auto-Generated Referral T [facility] for referral (narrative)No reason for referral information availableTuscaraw[facility] Work Phone: [facility] Narrative* Diagnostic Procedure Only (Routine) - ClosedSpecialtyDiagnoses / ProceduresReferred By ContactReferred To [facility] Diagnoses Left inguinal pain Procedures US HIP LEFT US COMPL JOINT R-T W/IMAGE DOCUMENTATION Luther Ann MD [address] [place] [id number] [place] [address] Referral IDStatusReasonStart DateExpiration DateVisits RequestedVisits [id number] Auto-Generated Referral / [facility] for visit Narrative* Rehabilitation - Outpatient (Routine) - AuthorizedSpecialtyDiagnoses / ProceduresReferred By Contact Referred To ContactPhysical Therapy Diagnoses Other specified joint disorders, left hip Other articular cartilage disorders, left hip Procedures [place] PHYSICAL THERAPY EVALUATION LOW COMPLEX 20 MINS Jeana Pierce MD [address] [place] [address] Phone: tel: fax: Micheal Savage, PT [address] [place] [address] Phone: tel: fax: Referral IDStatusReasonStart DateExpiration DateVisits RequestedVisits [id number] Consult and Treat / [facility] for visit Narrative* Rehabilitation - Outpatient (Routine) - AuthorizedSpecialtyDiagnoses / ProceduresReferred By ContactReferred To ContactPhysical Therapy Diagnoses Other specified joint disorders, left hip Other articular cartilage disorders, left hip Procedures [place] PHYSICAL THERAPY EVALUATION LOW COMPLEX 20 MINS Jeana Pierce MD [address] [place] [address] Phone: tel: fax: Micheal Savage, PT [address] [place] [address] Phone: tel: fax: Referral IDStatusReasonStart DateExpiration DateVisits RequestedVisits [id number] Consult and Treat / [facility] for visit Narrative* Rehabilitation - Outpatient (Routine) - ClosedSpecialtyDiagnoses / ProceduresReferred By ContactReferred To Contact Physical Therapy Diagnoses Other specified joint disorders, left hip Other articular cartilage disorders, left hip Procedures [place] PHYSICAL THERAPY EVALUATION LOW COMPLEX 20 MINS Jeana Pierce MD [address] [place] [address] Phone: tel: fax: Micheal Savage, PT [address] [facility] [place] [address] Phone: tel: fax: Referral IDStatusReasonStart DateExpiration DateVisits RequestedVisits [id number] Consult and Treat [facility] HealthcareReason for visit Narrative* Rehabilitation - Outpatient (Routine) - AuthorizedSpecialtyDiagnoses / ProceduresReferred By ContactReferred To ContactPhysical Therapy Diagnoses Other specified joint disorders, left hip Other articular cartilage disorders, left hip Procedures [place] THERAPEUTIC PX 1/> AREAS EACH 15 MIN EXERCISES Jeana Pierce MD [address] [place] [address] Phone: tel: fax: Micheal Savage, PT [address] [place] [address] Phone: tel: fax: Referral IDStatusReasonStart DateExpiration DateVisits RequestedVisits [id number]/7/20259/ [facility] Healthcare Summary Purpose Family History No Family History Records Found Relationship Condition Age at Onset Recorded Date/T malu father Malignant neoplasm Unknown High blood cholesterolUnknownmotherHypertensionUnknownHistory of strokeUnknown MigraineUnknown Advance Directives No Advanced Directives Records Found Advance Directive Response Recorded Date/ Time Advance Directives No December 11:21am Reason for Referral SpecialtyDiagnoses / ProceduresReferred By ContactReferred To ContactREHAB [facility] Diagnoses Pain in left hip Procedures CONSULT TO PHYSICAL THERAPY PHYSICAL THERAPY EVALUATION HIGH COMPLEX 45 MINS Brad Hanna MD [address] [place] [address] [facility] [place] [address] [place] [address] Referral IDStatusReasonStart DateExpiration DateVisits RequestedVisits [id number] Review Auto-Generated Referral Chief Complaint and Reason for Visit Chief Complaint Admit Date fpg 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 October 10, 2024 8: 00am Chief Complaint Admit Date fpg 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 October 10, 2024 8: 00am intermittent chest pain November 04, 2024 1:53pm Reason for Visit Admit Date Chest pain November 04, 2024 1:53pm Dyspnea November 04, 2024 1:53pm Murmur November 04, 2024 1:53pm Chief Complaint Admit Date fpg pre emp [...] 2:48pm Wellness examination December 03, 2024 2:48pm Additional Source Comments (unrecognized sect ion and content) No Status Records FoundNo Status Records FoundNo Status Records FoundNo Status Records FoundNo Status Records FoundNo Status Records FoundNo Status Records FoundNo Status Records Found INFORMATION SOURCE (unrecogn ized section and content) DATE CREATED AUTHOR 08/17/2020 [facility] DATE CREATED AUTHOR AUTHOR'S ORGANIZ ATION 12/23/2021 [facility] DATE CREATED AUTHOR AUTHOR'S ORGANIZ ATION 09/17/2023 [facility] DATE CREATED AUTHOR AUTHOR'S ORGANIZ ATION 03/12/2024 [facility] DATE CREATED AUTHOR AUTHOR'S ORGANIZ ATION 05/22/2024 [facility] DATE CREATED AUTHOR AUTHOR'S ORGANIZ ATION 08/29/2024 [facility] DATE CREATED AUTHOR AUTHOR'S ORGANIZ ATION 10/17/2024 [facility] DATE CREATED AUTHOR AUTHOR'S ORGANIZ ATION 12/07/2024 [facility] REASON FOR VISIT (unrecogniz ed section and content) ReasonCommentsConsultReasonCommentsAppointmentSpecialtyDiagnoses / Procedures Referred By ContactReferred To ContactPhysical Therapy Diagnoses Lt hip pain Procedures [place] PHYSICAL THERAPY EVALUATION HIGH COMPLEX 45 MINS Brad Hanna MD Micheal Savage, PT [address] [place] [address] Referral IDStatusReasonStart DateExpiration DateVisits RequestedVisits [id number] PatientNP left hip pain 2 1/2 years, unaware of specific injury, MRI 2 years ago at [facility],, hasdone PT in past 10 sessions, no injectionsReasonCommentsPainLeft hip scope scheduled for 05/21/24.Follow-upLeft hip scope scheduled for 05/21/24. ReasonCommentsPost-opFp left hip scope 05/21/24 PT started todayReasonComments Post-opLeft hip scope 05/21/24 PT 2 times/week going wellReasonCommentsFollow-up Left hip scope PT 2 times/week plus hep going well Source Comments (unrecognize d section and content) In the event this informatio n is protected by the Federal Confidentiality of Alcohol and Drug Abuse Patient Records regulations: The Federal rules restrict any use of the information to criminally investigate or prosecute any alcohol or drug abuse patient.[facility] CenterIn the event this information is protected by the Federal Confidentiality of Alcohol and Drug Abuse Patient Records regulations: The Federal rules restrict any use of the information to criminally investigate or prosecute any alcohol or drug abuse patient.[facility] CenterIn the event this information is protected by the Federal Confidentiality of Alcohol and Drug Abuse Patient Records regulations: The Federal rules restrict any use of the information to criminally investigate or prosecute any alcohol or drug abuse patient.[facility] CenterIn the event this information is protected by the Federal Confidentiality of Alcohol and Drug Abuse Patient Records regulations: The Federal rules restrict any use of the information to criminally investigate or prosecute any alcohol or drug abuse patient.[facility] CenterIn the event this information is protected by the Federal Confidentiality of Alcohol and Drug Abuse Patient Records regulations: The Federal rules restrict any use of the information to criminally investigate or prosecute any alcohol or drug abuse patient.[facility] Care Teams (unrecognized sec tion and content) Team MemberRelationshipSpecialtyStart DateEnd Date Luther Morris MD [address] [place] [address] PCP - Lllchqn69/10/23Team MemberRelationshipSpecialtyStart DateEnd Date Luther Morris MD [address] [place] [address] PCP - Dybufsr32/10/23Team MemberRelationshipSpecialtyStart DateEnd Date Luther Morris MD [address] [place] [address] PCP - Xvwuqbe29/10/23Team MemberRelationshipSpecialtyStart DateEnd Date Luther Morris MD [address] [place] [address] PCP - Xsdrntw20/10/23Team MemberRelationshipSpecialtyStart DateEnd Date Luther Morris MD [address] [place] [address] PCP - Stndblk23/10/23Team MemberRelationshipSpecialtyStart DateEnd Date Luther Morris MD [address] [place] [address] PCP - Xyfmkzx59/10/23Team MemberRelationshipSpecialtyStart DateEnd Date Luther Morris MD [address] [place] [address] PCP - Atdwzjm85/10/23Team MemberRelationshipSpecialtyStart DateEnd Date Luther Morris MD [address] [place] [address] PCP - Mvatmte22/10/23Team MemberRelationshipSpecialtyStart DateEnd Date Luther Morris MD [address] [place] [address] PCP - Hzlahoc50/10/23Team MemberRelationshipSpecialtyStart DateEnd Date Luther Morris MD [address] [place] [address] PCP - Tshtvwm83/10/23Team MemberRelationshipSpecialtyStart DateEnd Date Luther Morris MD [address] [place] [address] PCP - Rciueeh44/10/23Team MemberRelationshipSpecialtyStart DateEnd Date Luther Morris MD [address] [place] [address] PCP - Uavkcyt02/10/23Team MemberRelationshipSpecialtyStart DateEnd Date Luther Morris DO [address] [facility] [place] [address] PCP - GeneralInternal [facility]10/16/23Team MemberRelationshipSpecialtyStart Date End Date Luther Morris DO [address] [facility] [place] [address] PCP - GeneralInternal Medicine10/16/23Team MemberRelationshipSpecialtyStart Date End Date Luther Morris DO [address] [place] [address] PCP - GeneralInternal Medicine10/16/23Team MemberRelationshipSpecialtyStart Date End Date Luther Morris DO [address] [place] [address] PCP - GeneralInternal Medicine10/16/23Team MemberRelationshipSpecialtyStart Date End Date Luther Morris DO [address] [place] [address] PCP - GeneralInternal Medicine10/16/23Team MemberRelationshipSpecialtyStart Date End Date Luther Morris MD PCP - Mnxacyj10/10/23Team MemberRelationshipSpecialtyStart DateEnd Date Luther Morris MD PCP - Bhrigqx53/10/23Team MemberRelationshipSpecialtyStart DateEnd Date Luther Morris DO [address] [place] [address] PCP - GeneralInternal Medicine10/16/23Team MemberRelationshipSpecialtyStart Date End Date Luther Morris DO PCP - Ulvmycy20/10/23Team MemberRelationshipSpecialtyStart DateEnd Date Luther Morris DO PCP - Kpjrsyj10/10/23Team MemberRelationshipSpecialtyStart DateEnd Date Luther Morris, DO PCP - Kyjslcz18/10/23Team MemberRelationshipSpecialtyStart DateEnd Date Luther Morris, DO PCP - Ndcdfjq89/10/23Team MemberRelationshipSpecialtyStart DateEnd Date Luther Morris, DO PCP - Jiazczv75/10/23Team MemberRelationshipSpecialtyStart DateEnd Date Luhter Morris, DO PCP - Leubnkp06/10/23Team MemberRelationshipSpecialtyStart DateEnd Date Luther Morris, DO PCP - Qtzwshc31/10/23Team MemberRelationshipSpecialtyStart DateEnd Date Luther Morris, DO PCP - Mhwmlvr71/10/23Team MemberRelationshipSpecialtyStart DateEnd Date Luther Morris, DO PCP - Epwqvhh67/10/23Team MemberRelationshipSpecialtyStart DateEnd Date Luther Morris, DO [address] [place] [address] PCP - GeneralInternal [facility]10/16/23Team MemberRelationshipSpecialtyStart Date End Date Luther Morris, DO PCP - Bbvwkhb63/10/23Team MemberRelationshipSpecialtyStart DateEnd Date Luther Morris, DO PCP - Nkhycol33/10/23Team MemberRelationshipSpecialtyStart DateEnd Date Luther Morris, DO PCP - Oittohw32/10/23Team MemberRelationshipSpecialtyStart DateEnd Date Luther Morris, DO PCP - Vtahpjx90/10/23Team MemberRelationshipSpecialtyStart DateEnd Date Luther Morris, DO [address] [place] [address] PCP [facility] [facility]Team MemberRelationshipSpecialtyStart Date End Date Luther Morris, DO PCP Quihzlc03/10/23 Team Status: Active Member Role Status Dates Luther Morris DO Primary Care Provider Active Team Status: Inactive Member Role Status Dates Luther Morris DO Primary Care Provider Active Start: October 10, 2024 End: October 10, 2024Edanalilia David Jr, DOAttnadine ProviderActiveStart: October 10, 2024 End: October 10, 2024 Team Status: Inactive Member Role Status Dates Luther Morris DO Primary Care Provider Active Start: November 04, 2024 End: November 04sho Morris DOAttnadine ProviderActiveStart: November 04, 2024 End: November 04, 2024 Team Status: Active Member Role/Relationship Status Dates Luther Morris DO Primary Care Provider Active Team Status: Inactive Member Role/Relationship Status Dates Luther Morris DO Primary Care Provider Active Start: October 10, 2024 End: October 10, 2024Edanalilia David Jr, DOAttending ProviderActiveStart: October 10, 2024 End: October 10, 2024 Team Status: Inactive Member Role/Relationship Status Dates Luther Morris DO Primary Care Provider Active Start: November 04, 2024 End: November 04Marbin Aponte ProviderActiveStart: November 04, 2024 End: November 04, 2024 Team Status: Active Member Role/Relationship Status Dates Luther Morris DO Primary Care Provider Active Start: November 18, 2024 Marbin Nagy ProviderActiveStart: November 18, 2024 Team Status: Inactive Member Role/Relationship Status Dates Luther Morris DO Primary Care Provider Active Start: December 03, 2024 End: December 03Marbin Aponte ProviderActiveStart: December 03, 2024 End: December 03, 2024 Goals (unrecognized section and content) Goals [...] BE BASED ON THE PRIMARY CLINICAL RECORDS. [facility] Fiscal[employer], [facility]. provides no warranty or guarantee of the accuracy or completeness of information in this document.
== END 2024-12-11 08:00 | disposition home or self-care (01) ==
LOC: CT 07:59
PROVIDERS: PCP Internal Medicine; Visit Provider Internal Medicine
DX: R59.0 Localized enlarged lymph nodes (principal)
CPT/HCPCS: 70491; Q9967

== ENCOUNTER 2024-12-16 10:07 | Outpatient (OUT) | payer OTHER, SELFPAY ==
--- OUTSIDE RECORDS SUMMARY | 2024-12-16 10:09 | XMS_ITS | Clinical Summary ---
Author Organization [facility] Address [address] [place], [place] [address] Care Team Providers Care Hvac Technician Name Role Phone Unavailable Primary Care Provider Unavailabl e Allergies No known active allergies Medications MedicationSigDispense QuantityRefillsLast FilledStart DateEnd DateStatus montelukast (SINGULAIR) 10 mg tablet Take by mouth every 24 hours.10/08/2021ctive tamsulosin (FLOMAX) 0.4 mg 3Active cetirizine (ZYRTEC) 10 mg tablet Active Active Problems No known active problems Social History Tobacco UseTypesPacks/DayYears UsedDateSmoking Tobacco: NeverSmokeless Tobacco: Never Tobacco Cessation:Counseling Given: Not Answered Area Deprivation IndexAnswerDate RecordedNational Score (1-100), lower number is lower vbfk648107/10/2023State Score (1-10), lower number is lower jign64107/10/2023 Data from: https://www.neighborhoodatlas.medicine.[facility].edu/. Last address used for opdylqndejt[address]/10/2023Sex and Gender InformationValueDate RecordedSex Assigned at BirthNot on fileLegal HzvKefk9705/11/2023 4:00 PM EDT Gender IdentityNot on fileSexual OrientationNot on file Last Filed Vital Signs Vital SignReadingTime TakenCommentsBlood Jnekqasn813/8507 10:31 AM EDT Gurbu8385 10:31 AM NVMZdrpgvoahrc42.8 ??C (98.3 ??F)09/10/2023 10:31 AM EDTRespiratory Rate--Oxygen Saturation--Inhaled Oxygen Concentration--Ywtxgq06.3 kg (188 lb)09/10/2023 10:31 AM RRTGycxmk446.7 cm (5' 8 )09/10/2023 10:31 AM EDT Body Mass Index28.59009/10/2023 10:31 AM EDT Plan of Treatment Health MaintenanceDue DateLast DoneCommentsAnxiety Rphtllviw03/27/1995Depression Pwxtvhtqo32/27/1995HIV Uicwfdbrc07/27/1995Hepatitis C Taqtwhutc10/27/1995 DTaP,Tdap,Td Vaccine (1 - Tdap)12/09/1995Hepatitis B Vaccine (1 of 3 - 19+ 3- dose series)12/09/1995Lipid Hasiltnno08/27/2012CT Slahqurwcolx23/27/2022 Cologuard (FIT-DNA)4894Xndcpzazibt92/27/2022Colorectal Cancer Screening 2Diabetes Fjdmcerpd64/27/2022Fecal Occult Blood2021igmoidoscopy 2Covid-19 Vaccine ( season)510/, 03/11/2020, 02/11/2020Influenza Vaccine (#1)2024 Insurance * Guarantor: Henrik Simmons AAccount TypeRelation to PatientDate of BirthPhone Billing AddressPersonal/YvdgwiQzfv59/27/1976 [facility] [place] [address]
--- OUTSIDE RECORDS SUMMARY | 2024-12-16 10:09 | XMS_ITS | Clinical Summary ---
Author Organization [employer] [facility] tem Address [id number] [place] [address] Care Team Providers Care Book Binder Name Role Phone Luther Nicolas Primary Care Provider [phone] Allergies No known active allergies Medications MedicationSigDispense QuantityRefillsLast FilledStart DateEnd DateStatus tamsulosin (FLOMAX) 0.4 mg capsule Indications:benign prostatic hyperplasia with lower urinary tract sxTake 1 capsule (0.4 mg total) by mouth nightly Indications: enlarged prostate with urination problem.Active montelukast (SINGULAIR) 10 mg tablet Indications:seasonal allergic rhinitisTake 1 tablet (10 mg total) by mouth nightly Indications: seasonal runny nose.Active cetirizine (ZyrTEC) 10 mg tablet Indications:allergic rhinitisTake by mouth once daily at bedtime Indications: inflammation of the nose due to an allergy.Active indomethacin SR (INDOCIN SR) 75 mg CR capsule Take 1 capsule (75 mg total) by mouth in the morning. With food. 4 capsule 5Active pantoprazole (PROTONIX) 40 mg EC tablet Take 1 tablet (40 mg total) by mouth in the morning. 10 tablet 5Active ondansetron (ZOFRAN) 4 mg tablet Take 1 tablet (4 mg total) by mouth every 8 (eight) hours as needed for nausea or vomiting. 20 tablet 5Active Active Problems ProblemNoted DateDiagnosed DateFemoroacetabular impingement of left hip 03/26/2024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03/26/2024Femoral acetabular gqvjcaaaqvk79/05/2024 Family History Medical HistoryRelationNameCommentsProstate cancerFatherLouisAnesthesia problems Neg HxRelationNameStatusCommentsFatherLouis Social History Tobacco UseTypesPacks/DayYears UsedDateSmoking Tobacco: NeverPassive Smoke Exposure: NeverSmokeless Tobacco: Never Tobacco Cessation:Counseling Given: Not Answered Alcohol UseStandard Drinks/WeekCommentsYes1 (1 standard drink = 0.6 oz pure alcohol)ChildcareAnswerDate LtyehchoSmskayohcThwnqts74/10/2019EmploymentAnswer Date AtjzqmnbPsrzegapnpBwiwckg41/10/2019Hunger ScreeningAnswerDate Recorded Within the past 12 months we worried whether our food would run out before we got money to buy more.Never True08/25/2024Within the past 12 months the food we bought just didn't last and we didn't have money to get more.Never True 08/25/2024Sex and Gender InformationValueDate RecordedSex Assigned at BirthNot on fileLegal ZukTqnk8309/15/2014 3:03 PM EDTGender IdentityNot on fileSexual OrientationNot on file Last Filed Vital Signs Vital SignReadingTime TakenCommentsBlood Tgyvhaaq389/8504 3:35 PM EDT Ikfoq9790 3:35 PM BBQXpbryzxpkog43.1 ??C (97 ??F)05/21/2024 1:50 PM EDT Respiratory Szdf4862 3:35 PM EDTOxygen Toyqsmuskn57%05/21/2024 3:35 PM EDTInhaled Oxygen Concentration--Kdrcyq18.1 kg (192 lb)08/25/2024 12:52 PM EDT Qihnhm318.7 cm (5' 8 )08/25/2024 12:52 PM EDTBody Mass Index29.19008/25/2024 12:52 PM EDT Plan of Treatment Health MaintenanceDue DateLast DoneCommentsDepression Ipqwhgoow79/27/1989Adult BMI Follow Up Plan1994DTaP,Tdap and Td Vaccines (1 - Tdap)12/09/1995COVID- 19 Vaccine ( - season), 03/11/2020, 02/11/2020 Influenza Lgyvxoq93/Tobacco Vdepvftza08/dult BMI Fguhmgugh89 [employer] Not on file Insurance Care Teams Team MemberRelationshipSpecialtyStart DateEnd Date Luther Nicolas DO [address] [place] [address] PCP - GeneralInternal Medicine10/16/23
--- OUTSIDE RECORDS SUMMARY | 2024-12-16 10:09 | XMS_ITS | Clinical Summary ---
Author Organization [facility] Address [address] [place] [address] Care Team Providers Care House Piping Inspector Name Role Phone Luther Nicolas DO Primary Care Provider [phone] Allergies No known active allergies Medications MedicationSigDispense QuantityRefillsLast FilledStart DateEnd DateStatus tamsulosin (Flomax) 0.4 MG 24 hr capsule Active Singulair 10 MG tablet Active cetirizine (ZyrTEC ALLERGY) 10 MG tablet Active Active Problems ProblemNoted DateDiagnosed DateArticular cartilage disorder of left hip 06/03/2024Left hip pain09/27/2023Femoral acetabular ovhtseizqyo03/15/2024 Encounter for screening for malignant neoplasm of colon11/22/2022 Immunizations ImmunizationAdministration DatesNext DueInfluenza, seasonal, injectable, preservative free12/12/2023 Family History Medical HistoryRelationNameCommentsProstate cancerFatherBreast cancerNeg HxColon cancerNeg HxOvarian cancerNeg HxRelationNameStatusCommentsFatherAliveMotherAlive Social History Tobacco UseTypesPacks/DayYears UsedDateSmoking Tobacco: NeverSmokeless Tobacco: NeverAlcohol UseStandard Drinks/WeekCommentsYes1 (1 standard drink = 0.6 oz pure alcohol)Sex and Gender InformationValueDate RecordedSex Assigned at BirthMale 11/21/2022 10:54 PM EDTLegal AkwJkhz8509/27/2022 2:44 PM EDTGender IdentityMale 11/21/2022 10:54 PM EDTSexual LlyzwwsglamRhysoumz24/10/2023 10:54 PM EDT Last Filed Vital Signs Vital SignReadingTime TakenCommentsBlood Dtaallct128/8611/22/2022 3:27 PM EDT Pulse--Temperature--Respiratory Rate--Oxygen Saturation--Inhaled Oxygen Concentration--Fjsgcq19.6 kg (180 lb)11/22/2022 3:27 PM WIIExfevi945.7 cm (5' 8 )11/22/2022 3:27 PM EDTBody Mass Index27.371 3:27 PM EDT Plan of Treatment Health MaintenanceDue DateLast DoneCommentsCT Ocqmwlljovjp63/27/1977FIT-DNA 1976FIT1976FOBT1976 5412Chcfxoorzgeei26/27/1977MMR Vaccines (1 of 1 - Standard series)1977DTaP/Tdap/Td Vaccines (1 - Tdap)12/09/1983Hepatitis B Vaccines (1 of 3 - 19+ 3-dose series)12/09/1995Pneumococcal Vaccine: Pediatrics (0 to 5 Years) and At-Risk Patients (6 to 64 Years) (1 of 2 - PCV) 12/09/1995COVID-19 Vaccine (4 - season), 03/11/2020, 02/11/2020Influenza Vaccine (#1)4Colonoscopy12/18/2032 12/18/2022, 12/18/2022, 3Colorectal Cancer Dovlpguif26/06/2033HIB VaccinesAged OutNo longer eligible based on patient's [...] DateEnd Date Luther Nicolas DO PCP - Vczdlvn99/10/23
--- OUTSIDE RECORDS SUMMARY | 2024-12-16 10:14 | XMS_ITS | CCD ---
Author Organization [facility] CliniSynj Care Team Providers Care Press Tender Incendiary Grenade Name Role Phone ARTURO, DR CORTÉS Admitting [...] Unavailable Ball Luther JACOBSON Primary Care Provider [phone] Jorge David DO Attending Provider Malatz Jr, Edanalilia Attending Unavailable Joann Jr, Edward Admitting Unavailable Luther Morris Primary Care Unavailable Luther Morris DO Attending Provider [phone] ARTURO LUTHER Primary Care Physician [phone] Oren GIBSON Attending Unavailable LUTHER MORRIS Referring Unavailable Allergies Allergy ClassificationReported Allergen(s)Allergy TypeDate of OnsetReaction(s) Facility (1 source)No Known Medication Allergies; Translations: [No Known Medication Allergies]Propensity to adverse reactions (disorder)[facility] Repository Medications Current Medications MedicationDrug Class(es)DatesSig (Normalized)Sig (Original)acetaminophen 500 mg oral tablet (2 sources)acetaminophen (TYLENOL EXTRA STRENGTH) 500 mg tablet Take 1 tablet (500 mg total) by mouth as needed for pain. Activeacetaminophen 325 mg / HYDROcodone bitartrate 5 mg oral tablet (1 source)Opioid AgonistStart: 05-21-2024 End: 47-43-1997TWCUCibneqm-acetaminophen (NORCO) 5-325 mg per tablet Indications: Post-operative pain Take 1-2 tablets by mouth every 6 (six) hours as needed for pain for up to 5 days. Max Daily Amount: 8 tablets 40 tablet 05/21/2024 05/26/2024 ActiveAlbuterol (9 sources)beta2-Adrenergic AgonistStart: 92-11-7158nlxf 2 puff(s) by inhalation every six hoursAlbuterol (Eqv-ProAir HFA) 2 puff(s), Inhalation, q6hr Shortness of breath or wheezing, Refill(s) 0Start Date: 11/21/24 Status: Ordered Repeat number: 1Start: 85-12-5011fafy 1 puff(s) by inhalation every six hours as needed for wheezingAlbuterol Sulfate 90 mcg/actuation HFA aerosol inhaler Active 2 PUFF INHALATION Every 6 hours as needed for shortness of breath or wheezing 8.5 30 2 November 10, 2024 8:47am Complies with drug therapyStart: 01-02-2024 End: 47-69-4474Rwtxvhnbg Sulfate 90 mcg/actuation HFA aerosol inhaler Discontinued [...] Inhibitor, Nonsteroidal Anti-inflammatory Drug Start: 05-21-2024 End: 63-25-7736xfzj 1 tablet by mouth in the morningaspirin 81 mg Take 1 tablet (81 mg total) by mouth in the morning and 1 tablet (81 mg total) beforebedtime. Do all this for 30 days. To start after aspirin 325 mg complete. 60 tablet 05/21/2024 06/20/2024 ActiveStart: 05-21-2024 End: 13-47-7918uxzn 1 tablet by mouth in the morning, [...] release oral capsule (1 source)Proton Pump InhibitorStart: 94-68-0721lnfg 1 capsule by mouth once dailyNexium 40 mg Cap-EC 40 mg = 1 cap(s), Oral, Daily, Refills(s) 0 Start Date: 12/05/24 Status: Ordered Repeat number: 1ferrous sulfate 325 mg oral tablet (1 source)Start: 77-17-4665olgi 1 tablet by mouth once dailyferrous sulfate 325 mg Tab 325 mg = 1 tab(s), Oral, Daily, Refills(s) 0 Start Date: 12/05/24 Status: Ordered Repeat number: 1indomethacin 75 mg extended release oral capsule (4 sources)Nonsteroidal Anti-inflammatory DrugStart: 32-39-3186yasz 1 capsule by mouth at mealtimeindomethacin SR (INDOCIN SR) 75 mg CR capsule Take 1 capsule (75 mg total) by mouth in the morning.With food. 4 capsule 05/21/2024 Active montelukast 10 mg oral tablet (20 sources)Leukotriene Receptor AntagonistStart: 22-66-9948pjvd 1 tablet by mouth once dailySingulair 10 mg Tab 10 mg = 1 tab(s), Oral, Daily, Refills(s) 0 Start Date: 11/21/24 Status: Ordered Repeat number: 1Start: 04-93-8438pinl 1 tablet by mouth once daily at bedtimeMontelukast 10 mg tablet Active 0 .ROUTE .COMPLEX 90 3 December 17, 2023 9:45pm TAKE 1 TABLET BY MOUTH EVERYDAY AT BEDTIME Complies with drug therapyStart: 12-17-2023 End: 76-89-6937vkux 1 tablet by mouth once dailyMontelukast 10 mg tablet Discontinued 10 MG PO Daily December 17, 2023 1:00am December 17, 2023 9:45pm Start: 64-07-1345hrtjfxrdohb (SINGULAIR) 10 mg tablet Take by mouth every 24 hours. 0 10/08/2021 Activenaproxen 500 mg oral tablet (2 sources)Nonsteroidal Anti-inflammatory DrugStart: 05-21-2024 End: 25-76-0200gcxt 1 tablet by mouth in the morning, [...] mg oral tablet (4 sources)Serotonin-3 Receptor AntagonistStart: 30-73-2135qpmx 1 tablet by mouth every eight hours as needed for nausea and vomitingondansetron (ZOFRAN) 4 mg tablet Take 1 tablet (4 mg total) by mouth every 8 (eight) hours as needed for nausea or vomiting. 20 tablet 05/21/2024 Activepantoprazole 40 mg delayed release oral tablet (4 sources)Proton Pump InhibitorStart: 36-30-0033weqw 1 tablet by mouth in the morningpantoprazole (PROTONIX) 40 mg EC tablet Take 1 tablet (40 mg total) by mouth in the morning. 10 tablet 05/21/2024 Activetamsulosin (20 sources)alpha-Adrenergic BlockerStart: 29-38-9452rkehobwzmo as directed, Refills(s) 0 Start Date: 11/21/24 Status: Ordered Repeat number: 1Start: 09-18-2023 End: 95-24-8017znrc 1 capsule by mouth once dailyTamsulosin 0.4 mg capsule Active 0 .ROUTE .COMPLEX 90 3 September 16, 2024 8:11am TAKE 1 CAPSULE BY MOUTH EVERY DAY FOR 90 DAYS Complies with drug therapyStart: 09-22-2022 End: 58-71-9688kqyq 1 capsule by mouth once dailyTamsulosin 0.4 mg capsule Discontinued 0.4 MG PO Daily September 18, 2023 12:00am September 18, 2023 8:39am tamsulosin (Flomax) 0.4 MG 24 hr capsule Activetelmisartan 20 mg oral tablet (2 sources)Angiotensin 2 Receptor BlockerStart: 30-07-0791vezi 1 tablet by mouth once dailytelmisartan 20 mg oral tablet 20 mg = 1 tab(s), Oral, Daily, Refills(s) 0 Start Date: 12/05/24 Status: Ordered Repeat number: 1Start: 00-09-6842hbbm 1 tablet by mouth once dailyTelmisartan 20 mg tablet Active 20 MG PO Daily December 03, 2024 12:00am Complies with drug therapy Problems Active Problems Problem ClassificationProblemDateDocumented DateEpisodic/ChronicAbdominal pain (8 sources)Left lower quadrant pain; Translations: [Left inguinal pain]Onset: 04-86-0319KfhiyosmVfymbk (9 sources)Mild intermittent asthma; Translations: [Mild intermittent asthma, uncomplicated]53-76-7500SehcrvnGewimybfwg and other anemia (4 sources)Iron deficiency anemia; Translations: [Iron deficiency anemia, unspecified]Onset: 877373-60-5739XjqvanwiNucgpggiig disorders (10 sources)Gastroesophageal reflux disease without esophagitis; Translations: [Gastro-esophageal reflux disease without esophagitis]Onset: 12-05-2024 35-83-5198WuqwvorFutwmpuuczdzs symptoms and ill-defined conditions (6 sources)Delay when starting to pass urine; Translations: [Hesitancy of micturition]EpisodicHeart valve disorders (3 sources)Heart murmur; Translations: [Cardiac murmur, unspecified]11-04-2024 EpisodicHyperplasia of prostate (11 sources)Lower urinary tract symptoms due to benign prostatic hypertrophy; Translations: [Benign prostatic hyperplasia with lower urinary tract symptoms] ChronicJoint disorders and dislocations; trauma-related (20 sources)Other articular cartilage disorders, left hip; Translations: [Acetabular labrum tear]Onset: 184546-23-9044KyzuwsxYdqevrcpwsp chest pain (4 sources)Chest pain; Translations: [Chest pain, unspecified]48-66-9981Ffcfkpkw Other aftercare (1 source)Postoperative visit; Translations: [Encounter for other specified surgical aftercare]62-10-4706EqdetxtcUxfas aftercare (1 source)Encounter for other specified surgical aftercare; Translations: [Encounter for other specified surgical aftercare]Onset: 20-20-4935WqkintzrCwurz injuries and conditions due to external causes (6 sources)Other specified injuries of abdomen, subsequent encounter; Translations: [OTH SPEC INJURIES ABD SUBSEQUENT]Onset: 52-17-7423GrnolkgaJrgdy lower respiratory disease (4 sources)Dyspnea; Translations: [Dyspnea, unspecified]63-43-1645Emzuuflt Comment on above:Echo: LVEF 55%, normal RV size/function - 11/2024Other nervous system disorders (1 source)Other acute postprocedural pain; Translations: [Other acute postprocedural pain]Onset: 02-66-2762JkeumpxsUwhjq non-traumatic joint disorders (20 sources)Hip pain; Translations: [Pain in left hip]Onset: 09-27-2023 09-33-4076OmjeykaqSumtl non-traumatic joint disorders (20 sources)Pain in right hip joint; Translations: [Pain in right hip]Onset: 096076-26-7816MqhvuqasPksws non-traumatic joint disorders (20 sources)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; Translations: [Other specified joint disorders, left hip]Onset: 385039-66-2641Gvubwiwt Other non-traumatic joint disorders (4 sources)Enthesopathy of hip region; Translations: [Other specified joint disorders, left hip]79-15-0115SgzqdzodVrnvd nutritional; endocrine; and metabolic disorders (1 source)Xewhoudfao32-25-7363JkaiskmkNtpqo nutritional; endocrine; and metabolic disorders (1 source)Overweight in adulthood with body mass index of 25 or more but less than 2582-60-0978GhrpfvezJxnns screening for suspected conditions (not mental disorders or infectious disease) (20 sources)Encounter for screening for malignant neoplasm of prostate; Translations: [Encounter for screening for malignant neoplasm of colon]Onset: 92-19-8419PtsizeyjRtnufhv on above:PSA: 1.58 - 12/2022, 1.59 - SA: 1.58 - 12/2022, 1.59 - 12/2023, 1.46 - 10/2024Other upper respiratory disease (4 sources)Allergic rhinitis due to pollen; Translations: [Allergic rhinitis due to pollen]ChronicOther upper respiratory disease (1 source)Allergic hrydknnn90-30-0914NsosnjyZqxavtenqlfd (3 sources)CONTACT W/AND (SUSP) EXPOS COVID-19; Translations: [CONTACT W/AND (SUSP) EXPOS COVID-19]Onset: 74-27-0546Olyckjvsokmd (1 source)Femoroacetabular impingement of left hip [M25.852]Onset: 05-21-2024 Unclassified (1 source)Post-opOnset: 60-09-2782Vonmoqicszqy (1 source)New PatientOnset: 12-18-2023 Past or Other Problems Problem ClassificationProblemDateDocumented DateEpisodic/ChronicOther non- traumatic joint disorders (20 sources)Femoral acetabular impingement; Translations: [Other specified joint disorders, unspecified hip]Onset: 352433-36-4651EgkodjldTklel non- traumatic joint disorders (3 sources)Other specified joint disorders, left hip; Translations: [Other specified joint disorders, left hip]Onset: 61-32-7672TdgsgsaeAzmis non-traumatic joint disorders (2 sources)Other specified joint disorders, unspecified hip; Translations: [Other specified joint disorders, unspecified hip]Onset: 97-07-0061RkvzdxjpItrka non-traumatic joint disorders (2 sources)Pain in left hip; Translations: [Pain in left hip]Onset: 12-18-2023 EpisodicResidual codes; unclassified (1 source)PainOnset: 95-38-9617WjfksxksGtjebgsdrrtn (1 source)CONTACT W/AND (SUSP) EXPOS COVID-19; Translations: [CONTACT W/AND (SUSP) EXPOS COVID-19]Onset: 02-15-2021 Results Test NameValueInterpretationReference RangeFacilityAmbulatory Visit Summaryon 08-78-0852Aaztpgwkcf Visit SummaryAmbulatory Visit Summary ANJUMJanesHENRIK :1975 Visit [...] signed up for this yet, please contact Erydel at [phone] to get signed up today. Language Information Language assistance services are available as needed. NormalCritical Access Hospitaler [facility] HospitalBasophils Auto (Bld) [#/Vol] Ordered By: Luther Morris on 08-48-5222Dkzsvmkvx (Bld) [#/Vol]0.0 10 3/uL0.0-0.1 [facility] HealthBasophils/100 WBC Auto (Bld)Ordered By: Luther Morris on 10-50-7187Yldkxmtrc/100 WBC (Bld)0.5 %0.2-2.0[facility] HealthEosinophils/100 WBC Auto (Bld)Ordered By: Luther Morris on 05-06-2999Oxyhlvzwwyp/100 WBC (Bld)1.8 %0.9-7.0[facility] Erythrocyte distribution width Auto (RBC) [Ratio]Ordered By: Luther Morris on 53-15-9329Nilfvkgyamq distribution width (RBC) [Ratio]22.3 %High11.0-15.0 [facility] HealthHematocrit Auto (Bld) [Volume fraction]Ordered By: Luther Morris on 28-37-2521Oqhqywcxut (Bld) [Volume fraction]40.9 %Low 42.0-54.0Prem[facility] HealthHemoglobin [Mass/volume] in Blood Ordered By: Luther Morris on 25-32-0169Jeojujogqg (Bld) [Mass/Vol]12.4 g/dLLow 14.0-18.0Prem[facility] HealthIron binding capacity [Mass/volume] in Serum or PlasmaOrdered By: Luther Morris on 82-87-7929Kzgw binding capacity [Mass/Vol]401.0 ug/dL250.0-450.0Premier HealthIron saturation [Mass Fraction] in Serum or PlasmaOrdered By: Luther Morris on 76-00-0133Fdad saturation [Mass fraction]6.5 %[facility] HealthLaboratory - Chemistry and Chemistry - challengeOrdered By: Luther Morris on 11-18-2024 Ferritin [Mass/Vol]33.0 ng/mL26.0-388.0Premier HealthIron [Mass/Vol]26.0 ug/dLLow65.0-175.0[facility] HealthLaboratory - Hematology and Cell countsOrdered By: Luther Morris on 30-36-7569Lerfxnml granulocytes/100 WBC (Bld)0.5 %0.0-0.5FProtestant Hospital Leukocytes [#/volume] corrected for nucleated erythrocytes in Blood by Automated counOrdered By: Luther Morris on 42-99-8542WGU corrected for nucl RBC Auto (Bld) [#/Vol]6.6 10 3/uL4.0-11.0[facility] HealthLymphocytes Auto (Bld) [#/Vol]Ordered By: Luther Morris on 69-12-8325Omeyijmgcxu (Bld) [#/Vol]1.7 10 3/uL1.2-3.8Prem[facility] HealthLymphocytes/100 WBC Auto (Bld)Ordered By: Luther Morris on 99-78-5464Zhzgjmomamh/100 WBC (Bld)26.2 % 20.5-60.0[facility] PrebleH Auto (RBC) [Entitic mass]Ordered By: Luther Morris on 17-71-1849CUG (RBC) [Entitic mass]23.1 pgLow25.9-34.0 Premier HealthMCHC Auto (RBC) [Mass/Vol]Ordered By: Luther Morris on 15-89-7923DZML (RBC) [Mass/Vol]30.3 g/dL29.9-35.2FProtestant HospitalMCV Auto (RBC) [Entitic vol]Ordered By: Luther Morris on 42-34-2923QNK (RBC) [Entitic vol]76.3 fLLow80.0-94.0[facility] HealthMonocytes Auto (Bld) [#/Vol]Ordered By: Luther Morris on 11-18-2024 Monocytes (Bld) [#/Vol]0.7 10 3/uL0.3-0.8[facility] Monocytes/100 WBC Auto (Bld)Ordered By: Luther Morris on 11-40-8290Mrndygxfu/100 WBC (Bld)10.7 %1.7-12.0[facility] HealthNeutrophils Auto (Bld) [#/Vol]Ordered By: Luther Morris on 07-82-1405Jgxlvwwcfyn (Bld) [#/Vol]4.0 10 3/uL1.4-6.5FProtestant HospitalNeutrophils/100 WBC Auto (Bld) Ordered By: Luther Morris on 27-68-6485Ojrypadcpwr/100 WBC (Bld)60.3 %43.0-75.0 [facility] HealthNo Panel InformationOrdered By: Luther Morris on 11-47-5025Dmyrysikpeb # (Auto)0.1 10 3/uL0.0-0.7FProtestant HospitalImmature Granulocyte # (Auto)0.03 10 3/uL0.00-0.03[facility] HealthPlatelet mean volume Auto (Bld) [Entitic vol]Ordered By: Luther Morris on 56-54-2449Gbxudupw mean volume (Bld) [Entitic vol]10.7 fL9.5-13.5 [facility] HealthPlatelets Auto (Bld) [#/Vol]Ordered By: Luther Morris on 94-97-5291Ibmjzwope (Bld) [#/Vol]300 10 3/jI324-007PvxfjyqauPremier HealthRBC Auto (Bld) [#/Vol]Ordered By: Luther Morris on 83-17-4480LTI (Bld) [#/Vol]5.36 10 6/uL4.70-6.10Prem[facility] HealthReticulocytes/100 RBC Auto (Bld)Ordered By: Luther Morris on 11-18-2024 Reticulocytes/100 RBC (Bld)2.98 %0.60-3.10[facility] Basophils Auto (Bld) [#/Vol]Ordered By: Luther Morris on 73-79-1332Butrtoujh (Bld) [#/Vol]0.0 10 3/uL0.0-0.1FProtestant HospitalBasophils/100 WBC Auto (Bld)Ordered By: Luther Morris on 97-73-7853Omwdjobxs/100 WBC (Bld)0.5 %0.2-2.0[facility] HealthEosinophils/100 WBC Auto (Bld)Ordered By: Luther Morris on 62-65-7161Jonttwrgtjv/100 WBC (Bld)0.9 %0.9-7.0[facility] HealthErythrocyte distribution width Auto (RBC) [Ratio]Ordered By: Luther Morris on 87-21-6828Quejyuvbqne distribution width (RBC) [Ratio]17.1 %High11.0-15.0Prem[facility] HealthFibrin D-dimer [Presence] in Platelet poor plasma by Latex agglutinationOrdered By: Luther Morris on 99-24-1448Xsnpir D-dimer LA Ql (PPP)0.19 mg/L FEU<=0.59Premier HealthComment on above:Increases in D-Dimer concentration observed withthromboembolic [...] Calc (S) [Mass/Vol]Ordered By: Luther Morris on 23-41-7982Uyuifzeo (S) [Mass/Vol]3.7 g/dLPremier Health Glomerular filtration rate (GFR) estimation in non- AmericanOrdered By: Luther Morris on 83-87-3383SMG/1.73 sq M.predicted among non-blacks MDRD (S/P/Bld) [Vol rate/Area]mL/min/{1.73_m2}>=60 mL/min/1.73m 2FProtestant HospitalHematocrit Auto (Bld) [Volume fraction]Ordered By: Luther Morris on 09-90-4748Lbhiyxcfom (Bld) [Volume fraction]35.9 %Low42.0-54.0[facility] HealthHemoglobin [Mass/volume] in BloodOrdered By: Luther Morris on 71-10-5848Syrhwyfrzo (Bld) [Mass/Vol]10.9 g/dLLow14.0-18.0[facility] HealthLaboratory - Chemistry and Chemistry - challengeOrdered By: Luther Morris on 37-60-6330Bkpntvb [Mass/Vol]3.8 g/dL3.4-5.0Prem[facility] HealthALP [Catalytic activity/Vol]84 U/U70-255WykreldhlPremier HealthALT [Catalytic activity/Vol]33 U/U54-67HnreozxgzPremier HealthAST [Catalytic activity/Vol]21 U/Y13-58YlrnochhtPremier HealthBilirubin [Mass/Vol]0.6 mg/dL0.2-1.0[facility] Calcium [Mass/Vol]8.6 mg/dL8.5-10.1FProtestant HospitalChloride [Moles/Vol]102 mmol/W37-469HgpgndyyfPremier HealthCO2 [Moles/Vol]24.6 mmol/L21.0-32.0[facility] HealthCreatinine [Mass/Vol]1.10 mg/dL 0.70-1.30Premier HealthGFR/1.73 sq M.predicted MDRD (S/P/Bld) [Vol rate/Area]mL/min/{1.73_m2}>=60 mL/min/1.73m 2FProtestant HospitalGlucose [Mass/Vol]152 mg/fFSmur51-062PkncwzjyqPremier Health Potassium [Moles/Vol]3.3 mmol/LLow3.5-5.1FProtestant Hospital Protein [Mass/Vol]7.5 g/dL6.4-8.2FUK Healthcareodium [Moles/Vol]134 mmol/UJjr983-160YabnmkwlhPremier HealthTSH Qn1.168 m[IU]/L0.358-3.740Premier HealthUrea nitrogen [Mass/Vol]13.0 mg/dL7.0-18.0Premier HealthUrea nitrogen/Creatinine [Mass ratio]11.8 mg/mgPremier HealthLaboratory - Hematology and Cell countsOrdered By: Luther Morris on 76-64-7081Kmbffvkl granulocytes/100 WBC (Bld)0.4 %0.0-0.5FProtestant HospitalLeukocytes [#/volume] corrected for nucleated erythrocytes in Blood by Automated counOrdered By: Luther Morris on 64-39-7380AWC corrected for nucl RBC Auto (Bld) [#/Vol]5.7 10 3/uL4.0-11.0[facility] HealthLymphocytes Auto (Bld) [#/Vol] Ordered By: Luther Morris on 84-12-5498Gspwlmuzksb (Bld) [#/Vol]1.7 10 3/uL 1.2-3.8Prem[facility] HealthLymphocytes/100 WBC Auto (Bld)Ordered By: Luther Morris on 63-11-3525Dpllzecwksm/100 WBC (Bld)29.8 %20.5-60.0Premier HealthMCH Auto (RBC) [Entitic mass]Ordered By: Luther Morris on 83-34-6055JOQ (RBC) [Entitic mass]22.2 pgLow25.9-34.0Prem[facility] HealthMCHC Auto (RBC) [Mass/Vol]Ordered By: Luther Morris on 11-04-2024 MCHC (RBC) [Mass/Vol]30.4 g/dL29.9-35.2FUniversity Hospitals Cleveland Medical CenterV Auto (RBC) [Entitic vol]Ordered By: Luther Morris on 22-18-4174VOJ (RBC) [Entitic vol]73.3 fLLow80.0-94.0[facility] HealthMonocytes Auto (Bld) [#/Vol]Ordered By: Luther Morris on 82-72-3099Ouejciurg (Bld) [#/Vol]0.4 10 3/uL 0.3-0.8Prem[facility] HealthMonocytes/100 WBC Auto (Bld)Ordered By: Luther Morris on 12-38-4112Gvaqnvcac/100 WBC (Bld)7.8 %1.7-12.0Prem[facility] HealthNeutrophils Auto (Bld) [#/Vol]Ordered By: Luther Morris on 21-16-3903Hppwhjlrqzt (Bld) [#/Vol]3.4 10 3/uL1.4-6.5FProtestant HospitalNeutrophils/100 WBC Auto (Bld)Ordered By: Luther Morris on 84-58-8470Lnqukygfxdq/100 WBC (Bld)60.6 %43.0-75.0[facility] HealthNo Panel InformationOrdered By: Luther Morris on 64-56-2769Shpboxswrmv # (Auto)0.1 10 3/uL0.0-0.7FProtestant HospitalImmature Granulocyte # (Auto)0.02 10 3/uL0.00-0.03Premier HealthProstate Specific Antigen Screen1.46 ng/mL<=4.00Premier HealthTroponin I High Sensitivity8.3 pg/mL4.0-76.1FProtestant HospitalComment on above: CUT-OFF POINTS HAVE BEEN [...] (Bld) [Entitic vol]Ordered By: Luther Morris on 85-40-4000Cqrctaal mean volume (Bld) [Entitic vol]10.7 fL 9.5-13.5FProtestant HospitalPlatelets Auto (Bld) [#/Vol]Ordered By: Luther Morris on 36-36-1677Ramzoflse (Bld) [#/Vol]348 10 3/tI909-812ZmeuhtganPremier HealthRBC Auto (Bld) [#/Vol]Ordered By: Luther Morris on 26-57-1412HSC (Bld) [#/Vol]4.90 10 6/uL4.70-6.10[facility] City Hospitalerum or plasma albumin/globulin mass ratioOrdered By: Luther Morris on 70-57-3215Lfotvhv/Globulin [Mass ratio]1.0 {ratio}[facility] City Hospitalerum or plasma anion gap determinationOrdered By: Luther Morris on 39-76-3464Cnyva gap [Moles/Vol]10.7 mmol/LFProtestant HospitalBasic Metabolic Raygoza w/Rfx A1Con 56-22-2522EIX/1.73 sq M.predicted MDRD (S/P/Bld) [Vol rate/Area]mL/min/{1.73_m2}NormalThe Our Community Hospital Physician GroupComment on above: Performed By: #### REVA LIPID, EMP BMP #### [facility] [address] [place] [address] USACalcium [Mass/volume] in Serum or PlasmaOrdered By: Jorge David on 07-44-5480Pdesntj [Mass/Vol]9.4 mg/dL8.6-10.3FProtestant HospitalComment on above:Performed By: #### EBS LIPID, EMP BMP #### [facility] [address] [place] [address] USACarbon dioxide, total [Moles/volume] in Serum or Plasma Ordered By: Jorge David on 36-80-5653MT5 [Moles/Vol]25.7 mmol/L21.0-31.0 [facility] HealthComment on above:Performed By: #### EBS LIPID, EMP BMP #### [facility] [address] [place] [address] USAChloride [Moles/volume] in Serum or PlasmaOrdered By: Jorge David on 18-62-7134Yopjdjfo [Moles/Vol]105 mmol/P41-402QrbbidrujPremier HealthComment on above:Performed By: #### EBS LIPID, EMP BMP #### [facility] [address] [place] [address] USACholesterol [Mass/volume] in Serum or PlasmaOrdered By: Jorge David on 36-71-4538Abgpdlhyeul [Mass/Vol]205 mg/uJBofe135-315WruhwcyjfPremier HealthComment on above:Chol less than 200 mg/dl low riskChol 201-239 mg/dl borderline riskChol 240 mg/dl and greater high riskResult Comment: Chol less than 200 mg/dl low risk Chol 201-239 mg/dl borderline risk Chol 240 mg/dl and greater high riskPerformed By: #### EBS LIPID, EMP BMP #### [facility] [address] [place] [address] USACholesterol in HDL [Mass/volume] in Serum or PlasmaOrdered By: Jorge David on 51-37-1110Pgmmkhsefrv in HDL [Mass/Vol]46 mg/dL23-92 [facility] HealthComment on above:HDL CHOL ATP-III CLASSIFICATION Cardiovascular RiskHDL > or equal to 60 mg/dL LOWHDL < 40 mg/dL HIGHResult Comment: HDL CHOL ATP-III CLASSIFICATION Cardiovascular Risk HDL > or equal to 60 mg/dL LOW HDL < 40 mg/dL HIGHPerformed By: #### EBS LIPID, EMP BMP #### [facility] [address] [place] [address] USACholesterol in LDL Calc [Mass/Vol]Ordered By: Jorge David on 17-07-7570Hirngkvzvnu in LDL [Mass/Vol]126 mg/dLHigh0-100Premier HealthComment on above:LDL ATP III CLASSIFICATIONLDL less than 100 mg/dL OptimalLDL 100-129 mg/dL Near or above rdlmmhhMPU939-506 mg/dL Borderline highLDL 160-189 mg/dL HighLDL greater than 189 mg/dL Very high Cholesterol in VLDL Calc [Mass/Vol]Ordered By: Jorge David on 10-10-2024 Cholesterol in VLDL [Mass/Vol]32 mg/dLPremier Health Creatinine [Mass/volume] in Serum or PlasmaOrdered By: Jorge David on 59-56-1221Xvvpsrhrgv [Mass/Vol]1.05 mg/dL0.70-1.30Premier HealthComment on above:Performed By: #### EBS LIPID, EMP BMP #### [facility] [address] [place] [address] USAGlomerular filtration rate [Volume Rate/Area] in Serum, Plasma or Blood by CreatinineOrdered By: Jorge David on 68-77-3468Ycujhcqrqf filtration rate [Volume Rate/Area] in Serum, Plasma or Blood by Creatinine> 60.0 mL/MinPremier HealthGlucose [Mass/volume] in Serum or Plasma Ordered By: Jorge David on 35-03-4603Fapqztj [Mass/Vol]93 mg/tK85-262InczxulapPremier HealthComment on above:Performed By: #### EBS LIPID, EMP BMP #### [facility] [address] [place] [address] USALipid Profileon 00-96-5548BQI Cholesterol,Oymjmetfay952 mg/dLHigh0-100The [facility] Physician GroupComment on above:Result Comment: LDL ATP III CLASSIFICATION LDL less than 100 mg/dL Optimal LDL 100-129 mg/dL Near or above optimal LDL 130-159 mg/dL Borderline high LDL 160-189 mg/dL High LDL greater than 189 mg/dL Very highPerformed By: #### EBS LIPID, EMP BMP #### [facility] [address] [place] [address] USATriglyceride w/Wapvuy581 mg/dLHigh0-149The [facility] Physician GroupComment on above:Result Comment: TRIG ATP III CLASSIFICATION TRIG less than 150 mg/dL Normal TRIG 150-199 mg/dL Borderline high TRIG 200-500 mg/dL High TRIG greater than 500 mg/dL Very high Standard traceable to the Center for Disease Conrtrol and Prevention (CDC) test method.Performed By: #### EBS LIPID, EMP BMP #### [facility] [address] [place] [address] USAVLDL LRPCSWAQNRB32 mg/dLNoNovant Health Franklin [facility] Center Physician GroupComment on above:Performed By: #### EBS LIPID, EMP BMP #### [facility] [address] [place] [address] USANo Panel InformationOrdered By: Jorge David on 86-41-4874Yfksypye Creatinine Clearance (ChemN/[facility]. [facility] God HospitalPotassium [Moles/volume] in Serum or PlasmaOrdered By: Jorge David on 23-12-4380Fylsijufa [Moles/Vol]4.6 mmol/L3.5-5.1FProtestant HospitalComment on above:Performed By: #### REVA LIPID, EMP BMP #### [place] [address] USASerum or plasma anion gap determinationOrdered By: Jorge David on 17-40-1310Awlur gap [Moles/Vol]10.9 mmol/L6.0-15.0Premier HealthComment on above:Performed By: #### EBS LIPID, EMP BMP #### [place] [address] USASerum or plasma total cholesterol/high density lipoprotein (HDL) cholesterol mass ratOrdered By: Jorge David on 10-10-2024 Cholesterol.total/Cholesterol in HDL [Mass ratio]4.5 {ratio}<5.0Premier HealthComment on above:Result Comment: PERFORMED BY: [place] [address] PATHOLOGIST SISAL PICKER WENDI KAYE M.D.Performed By: #### EBS LIPID, EMP BMP #### [place] [address] USASodium [Moles/volume] in Serum or PlasmaOrdered By: Jorge David on 73-10-3330Hkqdim [Moles/Vol]137 mmol/N951-107PaihtekggPremier HealthComment on above:Performed By: #### EBS LIPID, EMP BMP #### [facility] [address] [place] [address] USATriglyceride [Mass/volume] in Serum or PlasmaOrdered By: Jorge David on 88-62-6497Ycqgjwoybmbs [Mass/Vol]164 mg/dLHigh0-149Premier HealthComment on above:TRIG ATP III CLASSIFICATIONTRIG less than 150 mg/dL NormalTRIG 150-199 mg/dL Borderline highTRIG 200-500 mg/dL High TRIG greater than 500 mg/dL Very highStandard traceable to the Center for Disease Conrtrol and Prevention (CDC) test method.Urea nitrogen [Mass/volume] in Serum or PlasmaOrdered By: Jorge David on 77-77-6066Opce nitrogen [Mass/Vol] 14 mg/dL7-25Premier HealthComment on above:Performed By: #### EBS LIPID, EMP BMP #### [facility] [address] [place] [address] USAXR Pelvis and Hip - left 2 Viewson 39-80-4880RE and lateral x-rays left hip reviewed stable appearing joint space no acute osseous abnormalities this is my independent interpretation.MANUALLY TRANSCRIBED RESULTSRegency Hospital Company Bioceros [facility] Gerber HospitalRadiology Study observation (narrative)[facility] Memorial HospitalADMETA [facility] Gerber HospitalCT HIP LT WO CONTon 01-99-3266BI HIP LT WO CONTCT HIP LT WO [...] impingement with morphologic description above. Finalized by Nsetor Ricketts MD on 03/10/2024 5:58 [facility] CenterMR ARTHROGRAM HIP LT W CONTon 26-22-6464XF ARTHROGRAM HIP LT W CONTMR ARTHROGRAM HIP [...] by Tacos Cornelius MD on 01/22/2024 9:49 [facility] CenterFL MR/CT ARTHROGRAM HIP LT W INJon 26-43-7047HV MR/CT ARTHROGRAM HIP LT W INJFL MR/CT [...] by Solo Vera MD on 01/21/2024 3:00 [facility] CenterXR Pelvis and Hip - left 2 Viewson 11-04-1005BW, 45 degree Flowers lateral, and false profile x-rays of the left hip were obtained in the office today. 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 Tonus grade 1 no acute osseous abnormalities. MANUALLY TRANSCRIBED [facility] CenterRadiology Study observation (narrative)[facility] [id number] Visit (GENSMN) HENRIK MENJIVAR ([id number]) 1975 M Date Time Provider Department 09/10/23 [...] Brad Hanna MD 09/14/2023 2:54 PM Signed [facility] Abdominal [facility] - HISTORY AND PHYSICAL Chief Complaint: [...] no inguinal hernia found US - 08/15/23 Fktm-td-wgfzogkd tendinosis adductor origin without tear or hyperemia. [...] Order(s):CONSULT TO PHYSICAL THERAPY [9032] Order #: [id number]: 1 FUTURE Prescriptions as of 09/14/2023 - [...] Have you had unintention (more content not included)...NormalOhiohealth Grady Memorial HospitalUS HIP LTon 07-96-2366EE HIP LT* * *Final Report* * * [...] with mild hyperemia. No joint effusion. 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 Synovial thickening of the anterior hip joint with mild hyperemia. 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 Synovial thickening of the anterior hip joint with mild hyperemia. Registered Client Associate: [facility] Transcribe Date/Time: Aug 15 2023 1:52P [...] hyperemia. No joint effusion. DIVISION OF RADIOLOGYProvider, [facility] [place] - 08/15/2023 * * *Final Report* * [...] mild hyperemia. No joint effusion. 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 Synovial thickening of the anterior hip joint with mild hyperemia. Registered Client Associate: [facility] Transcribe Date/Time: Aug 15 2023 1:52P Dictated by : SARAH GARDNER MD This examination was interpreted and the report reviewed and electronically signed by: SARAH GARDNER MD on Aug 15 2023 1:58PM EST [facility] HospitalRadiology Study observation (narrative)[facility] Hip - leftOrdered By: Ccf Provider on 80-36-0625Oqclatuuz ClinicCNPNon 67-68-5864SMDR Telephone (RULTTB) HENRIK MENJIVAR ([id number]) 1975 M Date Time Provider Department 07/11/23 [facility] During your visit today, we recorded the [...] (None) Encounter Status:Closed by NATALIA OLIVEIRA on 07/11/23NoHocking [facility] 38-83-3044BQYEFhberq Visit (NELDA) ANJUMHENRIK Marrero ([id number]) 1975 M Date Time Provider Department 07/10/23 [...] Filomena Arreola MD 07/10/2023 11:12 AM Signed [facility] - HISTORY AND PHYSICAL Chief Complaint: [...] chronic pain management Plan (more content not included)...NormalUniversity [facility] PHYSICALon 09-22-7222LDYPSUM PHYSICALHNO ID: [id number] Author: FILOMENA ARREOLA MD Service: ? Author Type: Resident Type: H&P Filed: 07/10/2023 11:12 Note Text: [facility] - HISTORY AND PHYSICAL Chief Complaint: [...] MD General Surgery Resident, PGY-1 07/10/2023 10:23 AMNormalOhiohealth Grady Memorial HospitalMR PELVIS WO W CONon 27-47-8177JZR PELVIS WO W CONEXAMINATION: MRI PELVIS WO [...] Electronically authenticated by: BRAD NEW Date: 2021-12-16 15:05[facility] HospitalCT ABD/PELV W CONon 16-13-4531RF ABD/PELV W CONEXAMINATION: CT ABD/PELV W CON, [...] Electronically authenticated by: BRAD NEW Date: 2021-06-17 16:50[facility] AUTO DIFFon 19-59-5801YFBB #0.0 103/ulNormal0.0-0.1[facility] Hospital NorthComment on above:Performed By: #### CBC #### [facility] [address] [place] [address] Dr. Gala JohnsonBasophils/100 WBC (Bld)0.6 %Normal0.2-2.0[facility] Comment on above:Performed By: #### CBC #### [facility] [address] [place] [address] Dr. Gala Manuel #0.1 103/ulNormal0.0-0.7The [facility] Memorial HospitalComment on above: Performed By: #### CBC #### [facility] [address] [place] [address] Dr. Gala Lopezosinophils/100 WBC (Bld)1.2 %Normal0.9-7.0[facility] Comment on above:Performed By: #### CBC #### [facility] [address] [place] [address] Dr. Gala Lopezrythrocyte distribution width (RBC) [Ratio]13.1 %Lfxwtg27.0-15.0 The [facility] Memorial HospitalComment on above:Performed By: #### CBC #### [facility] [address] [place] [address] Dr. Gala JohnsonHematocrit (Bld) [Volume fraction]49.3 %Ctgira08.0-54.0The [facility] Memorial HospitalComment on above:Performed By: #### CBC #### [facility] [address] [place] [address] Dr. Gala JohnsonHemoglobin (Bld) [Mass/Vol]15.8 g/fHPwumzw30.0-18.0The [facility] Memorial HospitalComment on above:Performed By: #### CBC #### [facility] [address] [place] [address] Dr. Gala Stone #0.02 10e3/ulNormal0.00-0.03The [facility] Memorial HospitalComment on above:Performed By: #### CBC #### [facility] [address] [place] [address] Dr. Gala Stnoe %0.3 %Normal0.0-0.5The [facility] Memorial HospitalComment on above: Performed By: #### CBC #### [facility] [address] [place] [address] Dr. Gala Keen #2.3 103/ulNormal1.2-3.8The [facility] Memorial HospitalComment on above:Performed By: #### CBC #### [facility] [address] [place] [address] Dr. Gala Bellhocytes/100 WBC (Bld)33.5 %Bxghur53.5-60.0The [facility] Memorial HospitalComment on above:Performed By: #### CBC #### [facility] [address] [place] [address] Dr. Gala VargasUAL DIFF REQNONormalThe [facility] Memorial HospitalComment on above: Performed By: #### CBC #### [facility] [address] [place] [address] Dr. Gala Watts (RBC) [Entitic mass]30.3 kfDueljy13.9-34.0The [facility] Memorial HospitalComment on above:Performed By: #### CBC #### [facility] [address] [place] [address] Dr. Gala Watts (RBC) [Mass/Vol]32.0 g/hCCglgtn85.9-35.2The [facility] Memorial HospitalComment on above:Performed By: #### CBC #### [facility] [address] [place] [address] Dr. Gala Fagan (RBC) [Entitic vol]94.4 fLCritically high80.0-94.0The [facility] Memorial HospitalComment on above:Performed By: #### CBC #### [facility] [address] [place] [address] Dr. Gala Yepez #0.6 103/ulNormal0.3-0.8The [facility] Memorial HospitalComment on above:Performed By: #### CBC #### [facility] [address] [place] [address] Dr. Gala Randleocytes/100 WBC (Bld)8.3 %Normal1.7-12.0The [facility] Comment on above:Performed By: #### CBC #### [facility] [address] [place] [address] Dr. Gala Ochoa #3.8 103/ulNormal1.4-6.5The [facility] Memorial HospitalComment on above:Performed By: #### CBC #### [facility] [address] [place] [address] Dr. Gala Boswellutrophils/100 WBC (Bld)56.1 %Hnrcbr42.0-75.0The [facility] Memorial HospitalComment on above:Performed By: #### CBC #### [facility] [address] [place] [address] Dr. Gala Johnsonlet mean volume (Bld) [Entitic vol]11.9 fLNormal9.5-13.5The [facility] Memorial HospitalComment on above:Performed By: #### CBC #### [facility] [address] [place] [address] Dr. Gala JohnsonPLT246 103/ayOinvdr970-013Irn [facility] HospitalComment on above: Performed By: #### CBC #### [facility] [address] [place] [address] Dr. Gala JohnsonRBC5.22 106/ulNormal4.70-6.10The [facility] on above:Performed By: #### CBC #### [facility] [address] [address] [address] Gala JohnsonWBC6.8 103/ulNormal4.0-11.0[facility] on above: Performed By: #### CBC #### [facility] [address] [address] [address] Gala JohnsonGLYCOHEMOGLOBIN A1Con 23-43-6750KTU RECOMMENDATIONSEE Flower HospitalComoaklawn hospital on above:Result Comment: ADA RECOMMENDED LIMIT 4.0 - 6.0 ADA THERAPEUTIC TARGET < 7.0 ACTION SUGGESTED > 7.0Performed By: #### A1C #### [facility] [address] [place] [address] Dr. Gala JohnsonGlucose [Mass/Vol]117 mg/dLNoWilson Health on above:Performed By: #### A1C #### [facility] [address] [place] [address] Dr. Gala JohnsonHbA1c (Bld) [Mass fraction]5.7 %Normal4.5-6.2[facility] on above:Performed By: #### A1C #### [facility] [address] [place] [address] Dr. Gala JohnsonLIPID PROFILEon 15-44-0183WPEG-HDL RATIO NORMSEE [facility] HospitalComoaklawn hospital on above:Result Comment: 3.3 - 4.4 LOW RISK 4.4 - 7.1 AVERAGE RISK 7.1 - 11.0 MODERATE RISK >11.0 HIGH RISKPerformed By: #### LIPID, TSH, CMP #### [facility] [address] [place] [address] Dr. Gala JohnsonCholesterol [Mass/Vol]236 mg/dLCritically high<=200[facility] on above:Performed By: #### LIPID, TSH, CMP #### [facility] [address] [place] [address] Dr. Gala JohnsonCholesterol in HDL [Mass/Vol]47 mg/tTGunaco31-72KqtProMedica Memorial Hospital on above:Performed By: #### LIPID, TSH, CMP #### [facility] [address] [place] [address] Dr. Gala JohnsonCholesterol in LDL [Mass/Vol]134.0 mg/dLNoSalem City HospitalComoaklawn hospital on above:Performed By: #### LIPID, TSH, CMP #### [facility] [address] [place] [address] Dr. Gala Ludwigesterbrian.total/Cholesterol in HDL [Mass ratio]5.0 {ratio} NormalThe [facility] on above:Performed By: #### LIPID, TSH, CMP #### [facility] [address] [place] [address] Dr. Gala Pulido NORMAL> or = 60 mg/dl - LOW CARDIOVASCULAR RISK <40 mg/dl - HIGH CARDIOVASCULAR RISKNoSalem City HospitalComoaklawn hospital on above:Performed By: #### LIPID, TSH, CMP #### [facility] [address] [place] [address] Dr. Gala Martines CALC NORMALSEE BELOWMercy Health St. Charles HospitalComoaklawn hospital on above:Result Comment: <100 mg/dl OPTIMAL 100 - 129 mg/dl NEAR OR ABOVE OPTIMAL 130 - 159 mg/dl BORDERLINE HIGH 160 - 189 mg/dl HIGH >190 mg/dl VERY HIGH Performed By: #### LIPID, TSH, CMP #### [facility] [address] [place] [address] Dr. Gala JohnsonTriglyceride [Mass/Vol]275 mg/dLCritically high<=150[facility] on above:Performed By: #### LIPID, TSH, CMP #### [facility] [address] [place] [address] Dr. Gala JohnsonVLDL CALC55.0 mg/dLNoWilson Health on above: Performed By: #### LIPID, TSH, CMP #### [facility] [address] [place] [address] Dr. Gala JohnsonPROVinod 14(COMP METB)on 20-66-3604Enmxfpb [Mass/Vol]4.2 g/dLNormal 3.4-5.0The [facility] HospitalComment on above:Performed By: #### LIPID, TSH, CMP #### [facility] [address] [address] [address] Gala JohnsonAlbumin/Globulin [Mass ratio]1.2 {ratio}NormalThe [facility] HospitalComment on above:Performed By: #### LIPID, TSH, CMP #### [facility] [address] [address] [address] Gala JacobsenP [Catalytic activity/Vol]72 U/TIkicme48-491Hdc [facility] HospitalComment on above:Performed By: #### LIPID, TSH, CMP #### [facility] [address] [place] [address] Dr. Gala Culver [Catalytic activity/Vol]30 U/TVtnggx53-36Aww [facility] HospitalComment on above:Performed By: #### LIPID, TSH, CMP #### [facility] [address] [address] [address] Gala Piña gap [Moles/Vol]11.7 mmol/LNormalThe [facility] Comment on above:Performed By: #### LIPID, TSH, CMP #### [facility] [address] [place] [address] Dr. Gala JohnsonAST [Catalytic activity/Vol]18 U/YJekbqi37-95Puc [facility] HospitalComment on above:Performed By: #### LIPID, TSH, CMP #### [facility] [address] [address] [address] Gala JohnsonBilirubin [Mass/Vol]0.7 mg/dLNormal0.2-1.0The [facility] Comment on above:Performed By: #### LIPID, TSH, CMP #### [facility] [address] [address] [address] Gala JohnsonCalcium [Mass/Vol]8.6 mg/dLNormal8.5-10.1The [facility] Comment on above:Performed By: #### LIPID, TSH, CMP #### [facility] [address] [address] [address] Gala JohnsonChloride [Moles/Vol]101 mmol/UCddsrf61-529Hsq [facility] Comment on above:Performed By: #### LIPID, TSH, CMP #### [facility] [address] [address] [address] Gala JohnsonCO2 [Moles/Vol]29.1 mmol/AJezsuv12.0-32.0The [facility] Comment on above:Performed By: #### LIPID, TSH, CMP #### [facility] [address] [address] [address] Gala JohnsonCreatinine [Mass/Vol]0.91 mg/dLNormal0.70-1.30The [facility] HospitalComment on above:Performed By: #### LIPID, TSH, CMP #### [facility] [address] [place] [address] Dr. Gala LopezGFR-AF YEMENI>60Normal>=60The [facility] HospitalComment on above:Performed By: #### LIPID, TSH, CMP #### [facility] [address] [place] [address] Dr. Gala LopezGFR-NON AF YEMENI>60Normal>=60The [facility] HospitalComment on above:Performed By: #### LIPID, TSH, CMP #### [facility] [address] [place] [address] Dr. Gala JohnsonGlobulin (S) [Mass/Vol]3.4 g/dLNormalThe [facility] HospitalComment on above:Performed By: #### LIPID, TSH, CMP #### [facility] [address] [place] [address] Dr. Gala JohnsonGlucose [Mass/Vol]86 mg/dVRsoxah75-439Duu [facility] Comment on above:Performed By: #### LIPID, TSH, CMP #### [facility] [address] [place] [address] Dr. Gala JohnsonPotassium [Moles/Vol]3.8 mmol/LNormal3.5-5.1The [facility] Comment on above:Performed By: #### LIPID, TSH, CMP #### [facility] [address] [place] [address] Dr. Gala JohnsonProtein [Mass/Vol]7.6 g/dLNormal6.1-8.2[facility] Comment on above:Performed By: #### LIPID, TSH, CMP #### [facility] [address] [place] [address] Dr. Gala JohnsonSodium [Moles/Vol]138 mmol/WKgudyn820-692QhqPremier Health [facility] Comment on above:Performed By: #### LIPID, TSH, CMP #### [facility] [address] [place] [address] Dr. Gala JohnsonUrea nitrogen [Mass/Vol]13.0 mg/dLNormal7.0-18.0[facility] NorthComment on above:Performed By: #### LIPID, TSH, CMP #### [facility] [address] [place] [address] Dr. Gala Gomez nitrogen/Creatinine [Mass ratio]14.3 mg/mgNormalThWadsworth-Rittman HospitalComment on above:Performed By: #### LIPID, TSH, CMP #### [facility] [address] [place] [address] Dr. Gala Bee 39-07-6811DIU9.610 uIU/mLNormal0.470-4.680[facility] Hospital NorthComment on above:Performed By: #### LIPID, TSH, CMP #### [facility] [address] [place] [address] Dr. Gala Hernandez [facility] Medical CenterComment on above: Result Comment: <0.34 UIU/ml HYPERTHYROID 0.34-5.60 UIU/ml EUTHYROID >5.60 UIU/ml HYPOTHYROIDPerformed By: #### LIPID, TSH, CMP #### [facility] [address] [place] [address] Dr. Gala Mojica RANDOM W/MICROSCOPICon 51-56-0690MCNXSXSGEJJD SEENrmalNONE SEENPremier Health Miami Valley Hospital NorthComment on above:Performed By: #### UAMIC #### [facility] [address] [address] [address] Gala JohnsonBilirubin Ql (U)NegativeNormalNEGMemorial Hospital Comment on above:Performed By: #### UAMIC #### [facility] [address] [address] [address] Gala JohnsonCASTESSIE SEENNormalNONE SEENPremier Health Miami Valley Hospital NorthComment on above:Performed By: #### UAMIC #### [facility] [address] [address] [address] Gala JohnsonClarity (U)CLEARNormalCLEARPremier Health Miami Valley Hospital NorthComment on above: Performed By: #### UAMIC #### [facility] [address] [address] [address] Gala JohnsonColor (U)LT. YELLOWNormalYELLOWPremier Health Miami Valley Hospital NorthComment on above:Performed By: #### UAMIC #### [facility] [address] [place] [address] Dr. Gala JohnsonCrystals LM Nom (Urine sed)NONE SEENNormalNONE SEENPremier Health Miami Valley Hospital NorthComment on above:Performed By: #### UAMIC #### [facility] [address] [place] [address] Dr. Gala Cariaslial cells LM Ql (Urine sed)NONE SEENNormalNONE SEEN /RARE [facility] NorthComoaklawn hospital on above:Performed By: #### UAMIC #### [facility] [address] [address] [address] Gala JohnsonGlucose Ql (U)NegativeNormalNEGATIVEPremier Health Miami Valley Hospital NorthComment on above:Performed By: #### UAMIC #### [facility] [address] [place] [address] Dr. Gala JohnsonHemoglobin Ql (U)NegativeNormalNEGATIVEPremier Health [facility] Comment on above:Performed By: #### UAMIC #### [facility] [address] [place] [address] Dr. Gala JohnsonKetones Ql (U)NegativeNormalNEGATIVEThe [facility]ell HospitalComment on above:Performed By: #### UAMIC #### [facility] [address] [address] [address] Gala JohnsonLEUKOCYTESNegativeNormalNEGATIVEThe [facility] HospitalComment on above:Performed By: #### UAMIC #### [facility] [address] [address] [address] Gala JohnsonMUCOUSNONE SEENNormalNONE SEENPremier Health Miami Valley Hospital NorthComment on above:Performed By: #### UAMIC #### [facility] [address] [place] [address] Dr. Gala Ngotrite Ql (U)NegativeNormalNEGATIVEThe [facility] HospitalComment on above:Performed By: #### UAMIC #### [facility] [address] [place] [address] Dr. aGla JohnsonpH (U)6.5 [pH]Normal5-9The [facility] HospitalComment on above: Performed By: #### UAMIC #### [facility] [address] [place] [address] Dr. Gala JohnsonRBCNONE SEENAbnormal0-2The [facility] HospitalComment on above: Performed By: #### UAMIC #### [facility] [address] [place] [address] Dr. Gala JohnsonSPEC GRAVITY1.700Qfnldp6.005-<=1.025The [facility] HospitalComment on above:Performed By: #### UAMIC #### [facility] [address] [place] [address] Dr. Gala JohnsonUA PROTEINNegativeNormalNEGATIVE/ TRACEThe [facility] Comment on above:Performed By: #### UAMIC #### [facility] [address] [place] [address] Dr. Gala Hardingbilinogen Qn (U)0.2 {Tarun'U}/dLNormal0.2 - 1.0The [facility] HospitalComment on above:Performed By: #### UAMIC #### [facility] [address] [place] [address] Dr. Gala JohnsonWBCNONE SEENNormalNONE SEENPremier Health Miami Valley Hospital NorthComment on above: Performed By: #### UAMIC #### [facility] [address] [place], [place] [address] Dr. Gala JohnsonCovid-19 PCR ([facility])on 54-22-4112XVLJ-CoV-2 (COVID-19) RNA ABBY+probe Ql (Unsp spec)Not detectedNormalNOT DETECTEDThe [facility] Comment on above:Result Comment: When diagnostic testing is negative, the possibility of a false negative should be considered in the context of a patient's recent exposures and the presence of clinical signs and symptoms consistent with SARS-CoV-2. This test is not yet approved or cleared by the [place] Food and Drug Administration (FDA). This test was developed by [employer], [place], [place]. The performance characteristics of this test were validated by The [facility]. The results are not intended to be used as the sole means for clinical diagnosis or patient management decisions. The [facility] is authorized under Clinical Laboratory Improvement [...] for this test is supported by the [place] of Health and Human Service's declaration that [...] longer be used).Performed By: #### CVDTB #### [facility] [id number] Gala Johnson Vital Signs Date TimeVital SignValuePerforming NdppjjlgiLhviggne65-57-5687 15:12-0400Body tyoqvj612.72 cmBenjamin Ball DO Work Phone: [facility]10-22-2025 15:12-0400 Body mass index (BMI) [Ratio]30.4 kg/w0Yoznqjwj Ball DO Work Phone: 1(419)[address] [place], [place] 4521410-22-2025 15:12-0400 Body nhuzmw50.77 kgBenjamin Ball DO Work Phone: 1(419)[address] [place], [place] 4521410-22-2025 15:12-0400 Diastolic blood wpfbusht96 mm[Hg]Luther Ball DO Work Phone: 1(419)[address] [place], [place] 4521410-22-2025 15:12-0400 Heart rate87 /minBenjamin Ball DO Work Phone: 1(419)[address] [place], [place] 4521410-22-2025 15:12-0400 Respiratory rate12 /minBenjamin Ball DO Work Phone: 1(419)[address] [place], [place] 4521410-22-2025 15:12-0400 Systolic blood mm[Hg]Luther Ball DO Work Phone: 1(419)[address] [place], [place] 4521409-23-2025 14:00-0400 Body txurfd035.72 cmBenjamin Ball DO Work Phone: 1(419)[address] [place], [place] 4521409-23-2025 14:00-0400 Body mass index (BMI) [Ratio]29.8 kg/x6Lbxnwwys Ball DO Work Phone: 1(419)[address] [place], [place] 4521409-23-2025 14:00-0400 Body vakwph89.01 kgBenjamin Ball DO Work Phone: 1(419)[address] [place], [place] 4521409-23-2025 14:00-0400 Diastolic blood muhffuow73 mm[Hg]Luther Ball DO Work Phone: 1(419)[address] [place], [place] 4521409-23-2025 14:00-0400 Heart mytn701 /minBenjamin Ball DO Work Phone: 1(419)[address] [place], [place] 4521409-23-2025 14:00-0400 Respiratory rate12 /minBenjamin Ball DO Work Phone: 1(419)[address] [place], [place] 4521409-23-2025 14:00-0400 Systolic blood rspiroes805 mm[Hg]Luther Morris DO Work Phone: [facility]07-14-2025 12:52-0400 Body nuutuu702.7 Dustin Pierce MD Work Phone: [facility]07-14-2025 12:52-0400Body mass index (BMI) [Ratio]29.19 kg/m2Jeana Pierce MD Work Phone: [facility]07-14-2025 12:52-0400Body yvwxqa98.09 kgJeana Pierce MD Work Phone: [facility]05-20-2025 12:27-0400Body ahkqda786.7 Dustin Pierce MD Work Phone: [facility]05-20-2025 12:27-0400Body mass index (BMI) [Ratio]29.19 kg/m2Jeana Pierce MD Work Phone: [facility]05-20-2025 12:27-0400Body .09 kgJeana Pierce MD Work Phone: [facility]04-22-2025 14:09-0400Body rabyjw620.7 Dustin Pierce MD Work Phone: [facility]04-22-2025 14:09-0400Body mass index (BMI) [Ratio]29.19 kg/m2Jeana Pierce MD Work Phone: [facility]04-22-2025 14:09-0400Body bufhic75.09 kgJeana Pierce MD Work Phone: [facility]03-24-2025 10:55-0400Body xevbdi744.7 Dustin Pierce MD Work Phone: [facility]03-24-2025 10:55-0400Body mass index (BMI) [Ratio]29.19 kg/m2Jeana Pierce MD Work Phone: [facility]03-24-2025 10:55-0400Body abmenf66.09 kgAnil Kari NICOLE Work Phone: [facility]11-05-2024 13:34-0500Body frmhje603.3 cmAnil Kari NICOLE Work Phone: [facility]11-05-2024 13:34-0500Body mass index (BMI) [Ratio]28.65 kg/m2Anil Kari NICOLE Work Phone: [facility]11-05-2024 13:34-0500Body vydibl50 kgAnil Kari NICOLE Work Phone: [facility]07-29-2024 10:31-0400Body .7 cmBrad Hanna MD Work Phone: [facility] [phone] 10:31-0400Body mass index (BMI) [Ratio]28.59 kg/d8SczlqBrad Hanna MD Work Phone: c[facility] HospitalYvsvnh38-72-2321 10:31-0400Body temperature 98.29 [degF]Brad Hanna MD Work Phone: c[facility] HospitalTiorjj22-89-6283 10:31-0400Body ebnplm49.28 kgBrad Hanna MD Work Phone: cPro[facility] HospitalNrjeku23-75-8793 10:31-0400Diastolic blood mm[Hg]Brad Hanna MD Work Phone: c[facility] HospitalKdsuvb63-99-4404 10:31-0400Heart rate75 /min Brad Hanna MD Work Phone: c[facility] HospitalPcjweh79-05-5913 10:31-0400Systolic blood bfoequke913 mm[Hg]Brad Hanna MD Work Phone: c[facility] HospitalDaztpp75-03-3471 10:06-0400Body msdsxe173.7 cmLuther Ann MD Work Phone: [facility]05-28-2024 10:06-0400Body mass index (BMI) [Ratio]27.83 kg/t3EfxirwmzLuther Ann MD Work Phone: [phone]05-28-2024 10:06-0400Body temperature 97.59 [degF]Luther Ann MD Work Phone: [phone]05-28-2024 10:06-0400Body zeehqt00.01 kgBevikram Ann MD Work Phone: [facility]05-28-2024 10:06-0400Diastolic blood lmwuxwty38 mm[Hg]Luther Ann MD Work Phone: [facility]05-28-2024 10:06-0400Heart rate84 /min Luther Ann MD Work Phone: [phone]05-28-2024 10:06-0400Systolic blood ogoktstd984 mm[Hg]Luther Ann MD Work Phone: [phone]08-11-2023 14:15-0400Body .72 cmBenjamin Ball Other [employer] Other 08-11-2023 14:15-0400Body mass index (BMI) [Ratio] 27.52 kg/y0Iacbtwid Ball Other [employer] Other 08-11-2023 14:15-0400Body javfyy51.1 kgBenjamin Ball Other [employer] Other 08-11-2023 14:15-0400Diastolic blood kfeocdmx75 mm[Hg] Luther Morris Other [employer] Other 08-11-2023 14:15-0400Respiratory rate12 /minBenjamin Ball Other [employer] Other 08-11-2023 14:15-0400Systolic blood yghfgoer235 mm[Hg] Luther Morris Other [facility] Other Encounters Encounter DateEncounter Type[facility] ProviderFacilityStart: 12-05-2024 End: 02-32-5386tdznikjdudZqhcqhn R NILLFacility: [place]walkStart: 12-05-2024 End: 30-74-2620Olegvbv encounter procedureMichael R NILL [phone]-[facility]flzuAv[facility] [place] Start: 12-03-2024 End: 27-42-9319yhbgumbqjrMxjsvntg Ball DO Work Phone: -[facility] ClinicStart: 12-03-2024 End: 91-58-6253Hhiggzw encounter procedureBentoyin Morris DO-[facility] Work Phone: Start: 12-03-2024 End: 22-09-5843Zhlhgxs encounter statusBentoyin Morris [facility] Campustart: 80-14-9815nhrcvqkzwgDnwwwpt NILLFacility: Nisreentart: 90-96-9321musjvhywuvZcmmasp NILLFacility:[facility] HospitalthereseueStart: 03-81-8394Jrb-patient / Non-visitBentoyin Morris DO-[facility] [employer] Work Phone: Start: 11-04-2024 End: 91-61-1857oytoiiixczLabnhikn Ball DO Work Phone: [facility] Work Phone: Start: 11-04-2024 End: 68-37-8627Abyxegv encounter procedureBentoyin Morris DO-[facility] Work Phone: Start: 10-10-2024 End: 77-25-2360lgzrsmksgjHgqmunqz Ball DO Work Phone: [facility] Work Phone: Start: 10-10-2024 End: 86-34-7969Aygmsjip Jalil David -[employer] [address] Work Phone: start: 09-04-2024 End: 97-73-6195FprzjaemzNaiuhetl Wright TECHNICAL ADVISOR Work Phone: noms FB PTComment on above:Left hip pain (Primary Dx); Femoroacetabular impingement of left hip; Articular cartilage disorder of left hipStart: 09-02-2024 End: 41-56-8301ZkppfaympNsgrwy Jeydesirae PTANOMS FB PTComment on above:Left hip pain (Primary Dx); Femoroacetabular impingement of left hip; Articular cartilage disorder of left hipStart: 08-29-2024 End: 24-67-5789RwpwfrfgiJixzsngp Lee TECHNICAL ADVISOR Work Phone: noms FB PTComment on above:Left hip pain (Primary Dx); Femoroacetabular impingement of left hip; Articular cartilage disorder of left hipStart: 08-25-2024 End: 07-68-4195Rjtivb outpatient visit 15 minutesAnil Gwen Pierce MD Work Phone: [facility] Spine SurgeonsComment on above:Femoroacetabular impingement of left hip (Primary Dx) Start: 08-25-2024 End: 72-39-0844cswtgzyfuzCAZJ Gwen PIERCEJ.W. [facility] PPGStart: 07-29-2024 End: 29-42-4283NtpgxikaaRebdmhzu Lee TECHNICAL ADVISOR Work Phone: noms FB PTComment on above:Left hip pain (Primary Dx); Femoroacetabular impingement of left hip; Articular cartilage disorder of left hipStart: 07-29-2024 End: 82-02-4077Bqrzvs Onur Lee TECHNICAL ADVISOR Work Phone: noms FB PTStart: 07-29-2024 End: 49-32-4981Vmkzgs Onur Lee TECHNICAL ADVISOR Work Phone: noms FB PTStart: 07-22-2024 End: 72-36-6002EtbafunhbKscfblzz Wright TECHNICAL ADVISOR Work Phone: NOMS FB PTComment on above:Left hip pain (Primary Dx); Femoroacetabular impingement of left hip; Articular cartilage disorder of left hipStart: 07-22-2024 End: 46-49-1343Ipjjwc Onur Lee TECHNICAL ADVISOR Work Phone: NOMS FB PTStart: 07-22-2024 End: 52-00-2835Sckzsb Onur Lee TECHNICAL ADVISOR Work Phone: NOMS FB PTStart: 07-18-2024 End: 35-64-4416Ksdrxh flowspreetiKyian Savage PT Work Phone: NOMS FB PTStart: 07-18-2024 End: 00-88-4269Jaakxm flowspreetiKyian Willis Hussein PT Work Phone: NOMS FB PTStart: 07-18-2024 End: 69-71-2090GvurdpgamFhrs J Hussein PT Work Phone: NOMS FB PTComment on above:Left hip pain (Primary Dx); Femoroacetabular impingement of left hip; Articular cartilage disorder of left hipStart: 07-10-2024 End: 24-88-1403OmujoaoivBjasejxa Wright TECHNICAL ADVISOR Work Phone: NOMS FB PTComment on above:Left hip pain (Primary Dx); Femoroacetabular impingement of left hip; Articular cartilage disorder of left hipStart: 07-10-2024 End: 14-99-7023Sbgzgy Onur Lee TECHNICAL ADVISOR Work Phone: NOMS FB PTStart: 07-10-2024 End: 83-59-8841Rvcdrv Onur Lee TECHNICAL ADVISOR Work Phone: NOMS FB PTStart: 07-01-2024 End: 85-67-7101Gkjbdv flowspreetiKyian Savage PT Work Phone: NOMS FB PTStart: 07-01-2024 End: 76-30-0717Phqrnd flowsheetKyian J Hussein PT Work Phone: NOKP FB PTStart: 07-01-2024 End: 79-41-8800Hgmlpo follow up visit related to original pxAnil Gwen Kari NICOLE Work Phone: [facility] Spine SurgeonsComment on above:Postoperative visit (Primary Dx)Start: 07-01-2024 End: 11-63-1403PkztgslfqJlei [employer] Hussein PT Work Phone: NOQA FB PTComment on above:Left hip pain (Primary Dx); Femoroacetabular impingement of left hip; Articular cartilage disorder of left hipStart: 06-27-2024 End: 65-53-3975Mjetmf InRadiopreetiKyle [employer] Hussein PT Work Phone: NOWP FB PTStart: 06-27-2024 End: 65-24-5891Ikoyep flowsXquvale [employer] Hussein PT Work Phone: NOPB FB PTStart: 06-27-2024 End: 11-26-0338TtqubptxtUotz SupplySe[employer]comgs PT Work Phone: NOMS FB PTComment on above:Left hip pain (Primary Dx); Femoroacetabular impingement of left hip; Articular cartilage disorder of left hipStart: 06-24-2024 End: 29-15-0333MsuodipupBannuk Tattersall PTANOMS FB PTComment on above:Left hip pain (Primary Dx); Femoroacetabular impingement of left hip; Articular cartilage disorder of left hipStart: 06-24-2024 End: 91-40-6090Finsqw flowsheetMariah Tattersall PTANOMS FB PTStart: 06-24-2024 End: 44-20-7748Qkpupd flowsheetMariah Tattersall PTANOMS FB PTStart: 06-20-2024 End: 29-37-3055Shggab flowsheetKyle J Hussein PT Work Phone: NOMS FB PTStart: 06-20-2024 End: 91-90-8087Crazzz flowsheetKyian J Hussein PT Work Phone: NOMS FB PTStart: 06-20-2024 End: 64-30-6182KnkioakeqLudu Alba Hussein PT Work Phone: NOMS FB PTComment on above:Left hip pain (Primary Dx); Femoroacetabular impingement of left hip; Articular cartilage disorder of left hipStart: 06-17-2024 End: 34-84-6111JmdycesfdJpyrzr Tatjrall PTANOMS FB PTComment on above:Left hip pain (Primary Dx); Femoroacetabular impingement of left hip; Articular cartilage disorder of left hipStart: 06-17-2024 End: 48-56-8289Tylszw flowsShahnaz Tattersall PTANOMS FB PTStart: 06-17-2024 End: 98-22-1626Jdlxju flowsheetLucy Tattersall PTANOMS FB PTStart: 06-13-2024 End: 17-33-2761Ngcits flowsheetKyle Alba Hussein PT Work Phone: NOMS FB PTStart: 06-13-2024 End: 26-83-6818Gvjmbr flowsheetKyian Willis Hussein PT Work Phone: NOMS FB PTStart: 06-13-2024 End: 79-74-2147GnwsssnnbKscq Alba Hussein PT Work Phone: NOMS FB PTComment on above:Left hip pain (Primary Dx); Femoroacetabular impingement of left hip; Articular cartilage disorder of left hipStart: 06-03-2024 End: 29-85-0089Cbbkhp flowsheetKyle J Hussein PT Work Phone: NOMS FB PTStart: 06-03-2024 End: 50-31-3045Ogscjp flowsheetKyle J Hussein PT Work Phone: NOMS FB PTStart: 06-03-2024 End: 27-55-9200Ctxlxi follow up visit related to original pxJeana Pierce MD Work Phone: [facility] Spine SurgeonsComment on above:Left hip pain (Primary Dx)Start: 06-03-2024 End: 97-77-3093QncnlcrpjeLdox J Spriggs PT Work Phone: NODF FB PTComment on above:Left hip pain (Primary Dx); Femoroacetabular impingement of left hip; Articular cartilage disorder of left hipStart: 05-21-2024 End: 70-58-2034Fmxdli OnlyLisa Lignite [facility] Spine SurgeonsComment on above:Femoroacetabular impingement of left hip (Primary Dx); 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Start: 05-21-2024 End: 94-31-3203Myibbywemr and management of inpatientJAENA PIERCEProMedica Huntley HospitalStart: 05-15-2024 End: 35-65-9297Pkthzw Pj Pierce MD Work Phone: [facility] Spine SurgeonsComment on above:Femoroacetabular impingement of left hip (Primary Dx) Start: 05-07-2024 End: 13-40-5706Rtzvauwni to establishmentMetro Pat Phone Call Provider 1 Eugene [facility] Centertart: 05-07-2024 End: 88-52-6072Xejlctdpxm and management of inpatientBENJAMIN E BALLProMedica Huntley HospitalStart: 05-05-2024 End: 27-47-8947Nkbgsg outpatient visit 25 minutesJeana Pierce MD Work Phone: [facility] Spine SurgeonsComment on above:Femoroacetabular impingement of left hip (Primary Dx) Start: 05-05-2024 End: 81-85-6554gbkztpfirjUEHI K GUPTAProMedica [facility] PPGStart: 03-07-2024 End: 25-71-8327apzrbbgirjLNNB K GUPTAProMedica [facility] HospitalStart: 01-23-2024 End: 70-01-9078Qtokufiwo encounterJeana Pierce MD Work Phone: [facility] Spine SurgeonsStart: 01-21-2024 End: 76-03-5861xiiqrmqhcnDKSS [facility] Hospitaltart: 12-18-2023 End: 20-94-6255Zutlvc outpatient new 30 minutesJeana Pierce MD Work Phone: [facility] Spine SurgeonsComment on above:Femoroacetabular impingement of left hip (Primary Dx); Left hip pain; Femoral acetabular impingement; Pain of left hipStart: 35-26-3578Ieohbsx encounter statusBenkarinaregan Morris DO Work Phone: [facility] Hospitaltart: 12-18-2023 End: 44-57-0438cvqzqyepuxGPHK [facility] PPGStart: 10-26-2023 End: 03-74-4954Tntfhs [employer] TECHNICAL ADVISOR Work Phone: NOOY FB PTStart: 10-26-2023 End: 97-64-5679Hkgkvx [employer] TECHNICAL ADVISOR Work Phone: NOBS FB PTStart: 10-26-2023 End: 02-68-2726apkblktqsxUgluaspo Wright TECHNICAL ADVISOR Work Phone: NORL FB PTComment on above:Right hip pain (Primary Dx); Femoral acetabular impingementStart: 10-23-2023 End: 04-38-3306kjnwvbrjtaTzcbdg Tattersall PTANOMS FB PTComment on above:Right hip pain (Primary Dx); Femoral acetabular impingementStart: 10-23-2023 End: 76-12-5245Hzimsm flowsheetMariah Tattersall PTANOMS FB PTStart: 10-23-2023 End: 90-85-7582Zmkdqc flowsheetMariah Tattersall PTANOMS FB PTStart: 10-19-2023 End: 94-32-4040ptmycipljkCoqjdqsz Wright TECHNICAL ADVISOR Work Phone: NONL FB PTComment on above:Right hip pain (Primary Dx); Femoral acetabular impingementStart: 10-18-2023 End: 48-50-1162rhbcwkivsmJrjoejrw Wright TECHNICAL ADVISOR Work Phone: NOOI FB PTComment on above:Right hip pain (Primary Dx); Femoral acetabular impingementStart: 10-18-2023 End: 19-74-7415Czypii Onur Lee TECHNICAL ADVISOR Work Phone: NOZG FB PTStart: 10-18-2023 End: 49-08-1680Mxxjnm Onur Lee TECHNICAL ADVISOR Work Phone: NOLD FB PTStart: 10-12-2023 End: 66-95-1722nxsubgveveXlct J Hussein PT Work Phone: noms FB PTComment on above:Right hip pain (Primary Dx); Femoral acetabular impingementStart: 10-11-2023 End: 41-46-1261ebmtpgswnqWooh J Hussein PT Work Phone: NOTI FB PTComment on above:Right hip pain (Primary Dx); Femoral acetabular impingementStart: 10-11-2023 End: 35-20-6226Vgeyjc flowsheetKyle J Hussein PT Work Phone: NOVZ FB PTStart: 10-11-2023 End: 42-66-8518Kqlzdi flowsheetKyle J Hussein PT Work Phone: NONJ FB PTStart: 10-05-2023 End: 75-74-1978yhkyleaaklKgeo J Hussein PT Work Phone: NOMS FB PTComment on above:Right hip pain (Primary Dx); Femoral acetabular impingementStart: 10-04-2023 End: 48-05-7933fpirshnafcCczo J Hussein PT Work Phone: NOMS FB PTComment on above:Right hip pain (Primary Dx); Femoral acetabular impingementStart: 10-04-2023 End: 19-21-3347Dvrrrh flowsheetKyle J Hussein PT Work Phone: noms FB PTStart: 10-04-2023 End: 30-57-3485Rtdrrp flowsheetKyle J Hussein PT Work Phone: noms FB PTStart: 09-10-2023 End: 45-01-6967tgldlzhlehOUNGH KRPATAFacility:[facility] Campustart: 09-10-2023 End: 88-35-1884Jgnbqdi encounter procedureBrad Hanna MD Work Phone: General SurgeryComment on above:Pain in left hip (Primary Dx)Start: 08-15-2023 End: 89-76-1204mzbpvndfmqGWVFOWOE MILLERFacility:[facility] Campustart: 08-15-2023 End: 96-50-8127Olleniiofz hospital visit by physicianAcmc Healthcare System [facility] Christopher Work Phone: RadiologyComment on above:Left inguinal pain [R10.32] Start: 41-05-3739Mpgzvzbng encounterAndrew CayetanoadiologyComment on above: AppointmentLeft inguinal pain (Primary Dx)Start: 07-10-2023 End: 54-90-8099Vhbfrdh encounter procedureLuther Ann MD Work Phone: General SurgeryComment on above:Left inguinal pain (Primary Dx)Start: 07-10-2023 End: 97-10-7832yodppmoyfoNTBROSZA T. MILLERFacility:[facility] Start: 09-29-2022 End: 13-80-9146lmqefyntxcTtuilwbs Ball Other [facility] [employer] Other Start: 61-09-8822Rgedizwvp encounterBentoyin BallBROOKG [facility] ClinicStart: 09-25-2022 End: 15-96-8221dozpzqzfksQwiivvbu Ball Other [facility] [employer] Other start: 44-14-7487Trtbpyzvp for general adult medical examination without abnormal findingsLuther Morris Medical ClinicStart: 94-47-3868Tqdpeidit encounterBevikram [facility] Medical ClinicStart: 09-22-2022 End: 97-33-4629eudwudowemIobvnrtp Ball Other rt [employer] Other Start: 55-33-7979Ztfduraod for general adult medical examination without abnormal findingsLuther Morris Medical ClinicStart: 92-75-7351Lsbfuecl preventive med est patient 40-64yrsBevikram Morris Medical ClinicStart: 12-16-2021 End: 16-12-5458yghcaqiadaYD BENJAMIN BALLFacility:K8Huebn: 06-17-2021 End: 51-26-8938okzkvdmxhfZS BENJAMIN BALLFacility:M7Rxatr: 99-41-6051Wcfucksiv for general adult medical examination without abnormal findingsDR LUTHER MORRIS [facility] Campustart: 06-07-2021 End: 95-09-3389rgpjccttroRT BENJAMIN BALLFacility:A9Cslik: 06-07-2021 End: 33-78-7617Dzyoxkqrl for general adult medical examination without abnormal findingsDR LUTHER MORRISFacility:J2Xrhuq: 02-15-2021 End: 45-90-6137pwxeotdkkkMF BENJAMIN BALLFacility:Z6Occfo: 67-98-6082vlejsvjdbt DR LUTHER MORRISFacility:H1 Procedures DateProcedureProcedure DetailPerforming ClinicianStart: 51-77-5126Tchpec-up visitFollow-upANIL K GUPTAStart: 69-76-7703Rf compl joint r-t w/image documentationBevikram Ann MD Work Phone: Start: 92-59-9601VptytaaydziLjaukmq NILL Start: 20-31-9423PridpdpxsgdOwomyqwp Lee LOIDA Work Phone: Start: 72-59-3892AayghsuzprbUbww Hussein PT Work Phone: Start: 26-33-1396QMG screeningDR LUTHER Stanton on above:Performed By: #### PSASC #### [facility] [address] [place] [address] Dr. Gala JohnsonAcetabular labrum tear (disorder)Oren RONDONL Plan of Treatment DateCare ActivityDetailAuthorStart: 10-89-8658Dwjfwykle for malignant neoplasm of colonNOMS HealthcareStart: 40-40-0487Dismrakib for malignant neoplasm of colonNOMS HealthcareStart: 77-34-6292Keyzp BMI ScreeningAdult BMI Screening [facility] SystemStart: 80-60-6569Vkegm BMI ScreeningAdult BMI Screening [facility] SystemStart: 01-79-3113Pghmlda ScreeningTobacco Screening [facility] SystemStart: 32-21-7778Eskcw BMI ScreeningAdult BMI Screening [facility] SystemStart: 31-45-3094Rgmgc BMI ScreeningAdult BMI Screening [facility] SystemStart: 86-08-7047Xuuwzvu ScreeningTobacco Screening [facility] SystemStart: 12-16-8513Gwvjszb ScreeningTobacco Screening [facility] SystemStart: 24-17-2299Nxlda BMI ScreeningAdult BMI Screening [facility] SystemStart: 46-67-5014Tykkzsk ScreeningTobacco Screening [facility] SystemStart: 28-07-4568Mbfrh BMI ScreeningAdult BMI Screening [facility] SystemStart: 82-24-2928Nuhls BMI ScreeningAdult BMI Screening [facility] SystemStart: 19-81-6365Aabvatgex vaccinationProWexner Medical Centerca [facility] SystemStart: 10-06-2024 End: 01-27-0491Dngwkxg encounter nvmmqeubn56/25/2025 1:40 PM EDT Office Visit [facility] [address] [place] [address] Jeana Pirece MD [address] [place] [address] [facility] Sp[facility] SurgeonsStart: 09-04-2024 End: 14-79-7443amzndgemsq48/24/2025 5:00 PM EDT Treatment [facility] [address] [place] [phone] Alejandra Lee, TECHNICAL ADVISOR [address] [place] [address] NOMS FB PTStart: 09-02-2024 End: 69-07-6583oufspqmafk32/22/2025 5:00 PM EDT Treatment [facility] [address] [place] [address] Lucy Fay PTANOMS FB PTStart: 08-25-2024 End: 44-50-2877Jbjmtix encounter /14/2025 12:55 PM EDT Office Visit [facility] [address] [facility] [place] [address] Jeana Pierce MD [address] [place] [address] [facility] SurgeonsStart: 07-29-2024 End: 12-82-6539qxxfecdnqc32/17/2025 5:30 PM EDT Treatment [facility] [address] [place] [address] Alejandra Lee, TECHNICAL ADVISOR [address] [place] [address] Lizett DONAHUE PT Comment on above:ArrivedStart: 07-22-2024 End: 12-37-8098ldtoallnjw50/10/2025 5:30 PM EDT Treatment [facility] [address] [place] [address] Alejandra Lee, TECHNICAL ADVISOR [address] [place] [address] NOMS FB PTStart: 07-18-2024 End: 83-32-1969pexmwqotkw28/06/2025 1:30 PM EDT Treatment [facility] [address] [place] [address] Alejandra Lee, TECHNICAL ADVISOR [address] [place] [address] NOMS FB PTStart: 07-10-2024 End: 37-87-8724imyarahginBWTF FB PTComment on above:Left hip pain (Primary Dx) Start: 07-08-2024 End: 85-91-3389hxmovfxuomNLVB FB PTStart: 07-04-2024 End: 14-24-6544fpscabrmlo09/23/2025 1:30 PM EDT Treatment [facility] [address] [place] [address] Alejandra Lee, TECHNICAL ADVISOR [address] [place] [address] NOMS FB PTStart: 07-01-2024 End: 02-33-1776Ejubdpg encounter /20/2025 12:30 PM EDT Office Visit [facility] [address] [phone] Jeana Pierce MD [address] [place] [address] [facility] SurgeonsStart: 07-01-2024 End: 50-77-0338gjghrnngzfGUUV FB PTComment on above:ArrivedStart: 06-27-2024 End: 55-90-9185bslilcalzf02/16/2025 1:00 PM EDT Treatment [facility] [address] [place] [phone] Micheal Savage, PT [address] [place] [address] [facility] FB PTStart: 06-24-2024 End: 95-63-2647sfehxgcnvb56/13/2025 5:00 PM EDT Treatment [facility] [address] [place] [phone] Lucy Fay PTANOMS FB PTStart: 06-20-2024 End: 99-23-5447jtvlnuxcnyGXBU FB PTComment on above:ArrivedStart: 06-17-2024 End: 68-07-9272hrcukshmxd20/06/2025 5:00 PM EDT Treatment [facility] [address] [place] [phone] Lucy Fay PTANOMS FB PTStart: 06-13-2024 End: 62-39-2026isjiblpehl65/02/2025 1:00 PM EDT Treatment [facility] [address] [place] [phone] Micheal Savage, PT [address] [place] [address] [facility] FB PTStart: 06-03-2024 End: 93-90-7285Pmmiidj encounter gwkfmngab98/22/2025 1:45 PM EDT Office Visit [facility] [address] [place] [address] Jeana Pierce MD [address] [place] [address] [facility] SurgeonsStart: 06-03-2024 End: 48-64-3496cqcirrpupw95/22/2025 9:00 AM EDT Evaluation [facility] FB PT [address] [place] [phone] Micheal Savage, PT [address] [place] [address] ArrivedNOMS FB PT Comment on above:ArrivedStart: 05-21-2024 End: 25-15-9416Jxiolcwll to same day surgery kthvdv7905/21/2024 11:45 AM EDT - 05/21/2024 2:15 PM EDT Surgery [facility] Surgery [address] 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 [place], [place] [address] Jeana Pierce MD [address] [place] [address] [facility] SurgeryStart: 05-07-2024 End: 25-34-0570Amkmciifz to yebjengnqaavp40/26/2025 9:30 AM EDT Support Visit [facility] [id number] [address]JnxOgzyjc [facility] Start: 12-18-2023 End: 07-98-3807Pjbjhehaxbo MR/CT inj arthrogram hip left with guidance Fluoroscopy MR/CT inj arthrogram hip left with guidance Imaging Routine Femoral acetabular impingement Expected: 12/18/2023, Expires: 12/17/2024[facility] Work Phone: Comment on above:Expected: 12/18/2023, Expires: 12/17/2024Start: 12-18-2023 End: 03-87-0896DK Hip - left ArthrogramMR arthrogram hip left with contrast Imaging Routine Femoral acetabular impingement Pain of left hip Expected: 12/18/2023, Expires: 12/17/2024[facility] SystemComment on above:Expected: 12/18/2023, Expires: 12/17/2024Start: 10-26-2023 End: 27-97-8486whwvscklznTROV FB PTComment on above:ArrivedStart: 10-23-2023 End: 58-91-2827epvqkrthhy35/10/2024 3:00 PM EDT Treatment [facility] R[facility] PT [address] [place] [address] Alejandra Lee, TECHNICAL ADVISOR [address] [place] [address] NOMS FB PTStart: 10-19-2023 End: 01-44-9247fpdlvqgfhc98/06/2024 1:30 PM EDT Treatment [facility] ROW[facility] PT [address] [place] [phone] Alejandra Lee, TECHNICAL ADVISOR [address] [place] [address] NOMS FB PTStart: 10-18-2023 End: 19-46-7834ckdgigvwmjEVRR FB PTStart: 48-37-8641IMQFS-19 Vaccine ( season)COVID-19 Vaccine ( season)[facility] SystemStart: 92-74-9893Iynmmxfva vaccinationWilson Healthtart: 10-12-2023 End: 16-32-5073tjpsoorsoz23/30/2024 1:30 PM EDT Treatment [facility] FB PT [address] [place] [phone] Micheal Savage, PT [address] [place] [address] NOMS FB PTStart: 10-11-2023 End: 23-27-6998jwhlqalbzw92/29/2024 5:00 PM EDT Treatment [facility] FB PT [address] [place] [phone] Micheal Savage, PT [address] [place] [address] NOMS FB PTStart: 10-05-2023 End: 30-03-3788mlrezfhzjg03/23/2024 1:30 PM EDT Treatment [facility] FB PT [address] [place] [phone] Micheal Savage, PT [address] [place] [address] NOMS FB PTStart: 10-04-2023 End: 82-81-9447nmitrjakyv46/22/2024 5:30 PM EDT Treatment [facility] FB PT [address] [place] [phone] Micheal Savage, PT [address] [place] [address] ArrivedNOMS FB PT Comment on above:ArrivedStart: 09-10-2023 End: 28-36-5115Oxbofuh encounter issksjavy75/29/2024 10:30 AM EDT Office Visit General Surgery [address] [address] Brad Hanna MD [address] [place] [address] groin painGeneral SurgeryComment on above:groin painStart: 08-15-2023 End: 83-36-7563Gsxucbg encounter msbgotfsn07/03/2024 1:35 PM EDT Appointment Radiology [address] [place], [place] [id number] NEW ORDER FORTHCOMINGRadiologyComment on above:NEW ORDER FORTHCOMINGStart: 08-10-2023 End: 81-61-8976MJ Pelvis limitedUS PELVIS LTD Radiology Routine Left inguinal pain Expected: 08/10/2023, Expires: 08/08/2024[facility] Work Phone: Comment on above:Expected: 08/10/2023, Expires: 08/08/2024Start: 25-58-3861Fqdzyyrjcj Health ScreeningBehavioral Health ScreeningWilson Healthtart: 94-45-7661Gambt-19 Vaccine ( season) Covid-19 Vaccine ( season)[facility]: 41-73-8702Srvbkuqg ScreeningDiabetes ScreeningWilson Healthtart: 25-66-9904Nxbjvxmav for malignant neoplasm of colonWilson Healthtart: 19-13-6168Bqlnl panelLipid ScreeningWilson Healthtart: 66-73-1850FWuC,Tdap and Td Vaccines (1 - Tdap) DTaP,Tdap and Td Vaccines (1 - Tdap)[facility] CenterEuroMillions.co Ltd. Bioc[employer] SystemStart: 12-09-1995 Hepatitis B Vaccine (1 of 3 - 19+ 3-dose series)Hepatitis B Vaccine (1 of 3 - 19+ 3-dose series)[facility]: 12-91-8454Uasln microalbumin profile DTaP,Tdap,Td Vaccine (1 - Tdap)[facility]: 91-36-4410Pgkfg BMI Follow Up PlanAdult BMI Follow Up PlanWake Forest Baptist Health Davie Hospitaltart: 89-08-7108Viwelxm ScreeningAnxiety ScreeningWilson Healthtart: 96-79-3732Wtyozexipp Screening Depression ScreeningWilson Healthtart: 78-85-0950Dglrifsth C screening Hepatitis C ScreeningWilson Healthtart: 94-82-3273GNV screeningHIV Screening [facility]: 49-25-9311Puwcjqphrm ScreeningDepression Screening [facility] Hospitaltart: 64-78-4041Wqqajwg ScreeningTobacco Screening [facility] Hospitaltart: 88-12-8412Suqxotrxw for malignant neoplasm of colonNOOR HealthcareComprehensive metabolic 2000 panel - Serum or Plasma Premier HealthFibrin D-dimer [Presence] in Platelet poor plasma by Latex agglutinationPremier HealthUS Heart TransthoracicPremier Health End: 62-87-9569ZO Hip - leftUS HIP LEFT Radiology Routine Left inguinal pain 1 Occurrences starting 07/12/2023 until 08/09/2024[facility] Work Phone: Comment on above:1 Occurrences starting 07/12/2023 until 08/09/2024XR Chest 2 ViewsBaptist Health [facility] Hospital Immunizations Immunization DateImmunizationNotesCare KzorfuatOknclmgi72-57-6206dvkjrbd toxoid, reduced diphtheria toxoid, and acellular pertussis vaccine, adsorbedBenkarinamin Ball DO Work Phone: [facility]10-30-2024influenza, injectable, madin billy canine kidney, preservative freeBenjamin Ball DO Work Phone: [facility]10-30-2024influenza, seasonal, injectable, preservative freeKyle Hussein PT Work Phone: [facility] HospitalCzfsfiqrxa54-19-8000mlhqtvvbh virus vaccine, unspecified formulationJeana Pierce MD Work Phone: [facility] HospitalEbnyah46-91-7193RTGBC-81 mRNA-1273 (Moderna)Luther Morris DO Work Phone: [facility]01-28-2021COVID-19 mRNA-1273 (Moderna)Luther Morris DO Work Phone: [facility]12-30-2020COVID-19 mRNA-1273 (Moderna)Luther Morris DO Work Phone: [facility] Payers DatePayer CategoryPayerPolicy [id number] Cross Blue Shield Managed Care - Other [id number] Mexico Behavioral Health Institute at [facility] [id number] 2..840.9.281097.17823109-55-1512Ofdfrnc Health Insurance 1.2.840.239089.1.13.693.2.7.9.539246.392892.75078-67-0787Ytkbfdz 1.2.840.497472.1.13.159.2.7.3.570503.85920-35-5105Jbjmrff43551198029316-74-0113 [id number] 2.840.1.639421.3.579.2.35471-13-5776Nfgnhrl3320002 2..840.1.712594.3.57[id number] 2.16.840.1.523393.3.57[id number] 2.16.840.1.153121.3.579.[id number] 2.16.840.1.489001.3.579.2.92321-61-2343Yeeskuu008435469 2.16.840.1.990595.3.579.2.8[id number] 2.16.840.1.738199.3.57[id number] 2.16.840.1.741028.3.579.[id number] 2.16.840.1.397466.3.57[id number] 2..840.1.836550.3.579.2.943115-67-7226Ctbiudt965608670 2..840.1.713241.3.579.2.42[id number] 2.16.840.1.785508.3.579.2.[id number] 2..840.1.940072.3.579.[id number] 2..840.1.376418.3.579.2.1[id number] 2..840.1.071804.3.579.2.567290-63-1219Gdfgwol10100424 2..840.1.460266.3.57[id number] 2.840.1.655463.3.579.[id number] 2.840.1.267723.3.579.2.24667-12-1811Urcx-namJkhjpjiL1f1921235vi 2roa3bo9-s6sz-2i28-8i84-[id number] 2.16.840.1.946560.3.579.2.531 Social History DateTypeDetailFacilityStart: 07-10-2023 End: 56-47-8193Pcz Assigned At [facility] Verafin Other Start: 07-10-2023 End: 28-06-4308Jumnzph smoking status NHISNever smoked tobaccoWhite Hospital Start: 11-22-2022 End: 58-12-9607Pusmoeb use and exposureSmokeless tobacco non-userWilson Healthtart: 07-10-2023 End: 53-76-7749Thozhrj of Social functionWhite HospitalNational Score (1-100), lower number is lower ovzm85FagxszwerWilson Healthtart: 74-46-2962Adl Assigned At BirthNot on fileWilson Healthtart: 11-22-2022 End: 82-20-3478Gzptyekpm beverage intakeCurrent drinker of alcohol (finding)[facility] HospitalStart: 01-08-4842Ozw assigned at [facility] SystemStart: 21-48-6111Bbqkcv identityIdentifies as male gender (finding)[facility] Healthcare Start: 27-88-5612Gblimg orientationHeterosexual (finding)[facility] MemorialTobacco smoking status NHISTobacco smoking consumption unknownRegency Hospital Company [employer] [facility] Work Phone: Start: 67-12-0856RhqIobh (finding)[facility] [facility] Healthexual OrientationAvita Health System [facility] General Surgery [place] NEGATED: Highlighted rowStart: NINFHistory of tobacco usePassive smokerProSouthern [facility] Clinical Notes 09-22-2022 to 12-05-2024 Note Date & ZplyVqsbEanzndyo42-00-2868 NoteGeneral Surgery Office/Clinic Note Chief Complaint consultation [...] sclerosis: Father. Primary malign (more content not included)...[facility] Medical CenterComment on above:Result Comment: Electronically Signed By: ARTHUR NICOLE, Oren Maxwell\Date and Time Signed: 12/05/24 11:52 CER32-36-2406 Evaluation note* Diagnosis Onset Date Resolution Status Admit Date Chest pain acuteSeptember 2024 1:53pmDyspneaacuteSeptember 2024 1:53pmAsthma acuteOctober 2024 2:48pmBenign prostatic hyperplasia with lower urinary tract symptomsacuteOctober 2024 2:48pmGERD (gastroesophageal reflux disease)acuteOctober 2024 2:48pmIron deficiency anemiaacuteOctober 2024 2:48pmLeft hip impingement syndromeacuteOctober 2024 2:48pmScreening PSA (prostate specific antigen)acuteOctober 2024 2:48pmWellness examinationacuteOctober 2024 2:48pm [facility] Work Phone: [phone]) 873-330707-14-2025 History of Present illness Narrative* Jeana Pierce MD - 08/25/2024 12:55 PM EDT [facility] [address] [facility] A [facility] [address] Name: Henrki Menjivar : 1975 Chief Complaint Patient presents [...] well. He recently spent some time in [place] where he did a lot of walking, [...] of the aforementioned history prepared by the [place] practice provider, and I personally performed the [...] needed all questions answered.. documented in this encounterHenry County Hospital06-06-2025 History of Present illness Narrative* [...] hip pain/soreness last few days went to [place] for [facility] college orientation a lot of sitting and walk and long car ride, recovering over last couple days, better this a.m. 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 documented in this [facility]05-20-2025 History of Present illness Narrative* Jeana Pierce MD - 07/01/2024 12:30 PM EDT [facility] [address] [place] [facility] [address] Name: Henrik Menjivar : 1975 Chief Complaint [...] therapy twice a week. He occasionally takes spbq-jtg-wpfnufv medication as needed.He is noticing improvements in [...] were addressed and answered. 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 documented in this encounterCedar County Memorial HospitalOntojjtvxn87-72-2732 History of Present illness Narrative* Jeana Pierce MD - 06/03/2024 1:45 PM EDT [facility] [address] [facility] [address] Name: Henrik Menjivar : 1975 Date of [...] 4 weeks for reassessment. 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 Date: documented in this encounterCedar County Memorial HospitalLlhnfubejs95-36-0957 History of Present illness Narrative* Jeana Pierce [...] surgery all questions answered. documented in this encounterHenry County Hospital12-11-2024 Miscellaneous Notes* Telephone Encounter - [...] for surgical planning purposes. documented in this encounterMartin Memorial HospitalThe DelFin Project12-11-2024 Telephone encounter Note* Telephone Encounter - Jeana [...] the left hip for surgical planning purposes. 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 male who presents to the office today for his left hip. Patient is a new patient to the practice. Patient has had pain in the left hip for 2-1/2 years. He denies any specific injury. 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 documented in this encounterCedar County Memorial HospitalBplhapitxa81-90-2163 NoteHNO ID: [id number] Author: BRAD HANNA MD Service: ? Author Type: Physician Type: Progress Notes Filed: 09/14/2023 14:54 Note Text: [facility] - HISTORY AND [...] no inguinal hernia found US - 08/15/23 Idos-qv-nkdwkxiu tendinosis adductor origin without tear or hyperemia. [...] the patient's care with the resident. Signature: RBAD HANNA, [facility]07-29-2024 History of Present illness Narrative* Brad Hanna MD - 09/10/2023 11:00 AM EDT [facility] - HISTORY AND PHYSICAL Chief Complaint: [...] no inguinal hernia found US - 08/15/23 Dwrv-kv-spyjwdqp tendinosis adductor origin without tear or hyperemia. [...] Signature: BRAD HANNA MD documented in this encounterWhite Hospital07-29-2024 Nurse Note* Sindhu Stephens MA - 09/10/2023 10:28 AM EDT What is the reason for your visit today? Consult Who is your referring physician? None Are you having poor oral intake? NO Have you had unintentional weight loss of 15 lbs/7 Kg in the last 3-6 months? NO Bowels: regular Wound: None Temperature: No Drains: No [facility]07-29-2024 Nurse Note* Sindhu Stephens MA - 09/10/2023 10:28 AM EDT What is the reason for your visit today? Consult Who is your referring physician? None Are you having poor oral intake? NO Have you had unintentional weight loss of 15 lbs/7 Kg in the last 3-6 months? NO Bowels: regular Wound: None Temperature: No Drains: No documented in this encounterWhite Hospital05-29-2024 Telephone encounter Note * Telephone Encounter - Natalia Oliveira - 07/11/2023 3:06 PM EDT Patient has been scheduled for their [facility] US exam on 08/15/23 : 1:35 PM at [place]. [facility]05-29-2024 Miscellaneous Notes* Telephone Encounter - Natalia Oliveira - 07/11/2023 3:06 PM EDT Patient has been scheduled for their [facility] US exam on 08/15/23 : 1:35 PM at [place]. * Telephone Encounter - Natalia Oliveira - [...] locations. Slot held: N/A documented in this encounterWhite Hospital05-29-2024 Telephone encounter Note * Telephone Encounter - Natalia Oliveira - 07/11/2023 11:07 AM EDT Called patient on July 11, 2023 at 11:07 AM to schedule their [facility] US exam. No answer, left VM, 1st attempt. Left VM stating [facility] US department will call back. [facility]05-29-2024 Telephone encounter Note* Telephone Encounter - Jack [...] the Appointment Note. Do not link order forSplitGigs PELVIS LTD. Correct order has been routed. Location: Depending on the surgical hx, this patient can have this exam performed at any of our three locations. Slot held: N/A [facility]05-28-2024 NoteHNO ID: [id number] Author: LUTHER ANN MD Service: ? Author [...] our notes. Patient consented for study? Not applicableOhiohealth Grady Memorial Hospital05-28-2024 History of Present illness Narrative* Luther Ann [...] for study? Not applicable documented in this encounterWhite Hospital05-28-2024 History and physical note * Filomena Arreola MD - 07/10/2023 10:23 AM EDT [facility] - HISTORY AND PHYSICAL Chief Complaint: [...] General Surgery Resident, PGY-1 07/10/2023 10:23 AM [facility]05-28-2024 History and physical note* Filomena Arreola MD - 07/10/2023 10:23 AM EDT [facility] - HISTORY AND PHYSICAL Chief Complaint: Chronic [...] PGY-1 07/10/2023 10:23 AM documented in this encounterWhite Hospital05-28-2024 Nurse Note* Jacklyn Graf MA - 07/10/2023 10:06 AM EDT What is the reason for your visit today? Consult Who is your referring physician? Dr. Ann Are you having poor oral intake? NO Have you had unintentional weight loss of 15 lbs/7 Kg in the last 3-6 months? NO Bowels: regular Wound: clean & dry Temperature: No Drains: No [facility]05-28-2024 Nurse Note* Jacklyn Graf MA - 07/10/2023 10:06 AM EDT What is the reason for your visit today? Consult Who is your referring physician? Dr. Ann Are you having poor oral intake? NO Have you had unintentional weight loss of 15 lbs/7 Kg in the last 3-6 months? NO Bowels: regular Wound: clean & dry Temperature: No Drains: No documented in this encounterWhite Hospital08-14-2023 Evaluation note* Encounter Date Diagnosis Assessment Notes Treatment Notes Treatment Clinical Notes Sep, Wellness examination (ICD-10 - Z 00.00) [facility] Other 08-11-2023 Evaluation note* Encounter Date Diagnosis [...] low risk patient. Refer for screening colonoscopy [facility] Other Evaluation + Plan note No data available for this section [facility] General Surgery [place] Evaluation noteNo InformationNort Verafin Other Evaluation note* Diagnosis Left inguinal pain- Primary Abdominal pain, left lower quadrant documented in this encounter [facility] HospitalEvaluation note* Diagnosis Left inguinal pain- Primary Abdominal pain, left lower quadrant documented in this encounter [facility] HospitalEvaluation note* Diagnosis Left inguinal pain Abdominal pain, left lower quadrant documented in this encounter [facility] HospitalEvalubayhealth medical center note* Diagnosis Pain in left hip- Primary Pain in joint, pelvic region and thigh documented in this encounter [facility] HospitalEvalubayhealth medical center note* Diagnosis Right hip pain- Primary Pain in joint, pelvic region and thigh Femoral acetabular impingement documented in this encounter [facility] HospitalEvaluation note* Diagnosis Right hip pain- Primary Pain in joint, pelvic region and thigh Femoral acetabular impingement documented in this encounter [facility] HealthcareEvaluation note* Diagnosis Right hip pain- Primary Pain in joint, pelvic region and thigh Femoral acetabular impingement documented in this encounter [facility] HealthcareEvaluation note* Diagnosis Right hip pain- Primary Pain in joint, pelvic region and thigh Femoral acetabular impingement documented in this encounter [facility] HealthcareEvaluation note* Diagnosis Right hip pain- Primary Pain in joint, pelvic region and thigh Femoral acetabular impingement documented in this encounter [facility] HealthcareEvaluation note* Diagnosis Right hip pain- Primary Pain in joint, pelvic region and thigh Femoral acetabular impingement documented in this encounter [facility] HealthcareEvaluation note* Diagnosis Right hip pain- Primary Pain in joint, pelvic region and thigh Femoral acetabular impingement documented in this encounter [facility] HealthcareEvaluation note* Diagnosis Right hip pain- Primary Pain in joint, pelvic region and thigh Femoral acetabular impingement documented in this encounter [facility] HealthcareEvaluation note* Diagnosis Femoroacetabular impingement of left hip- Primary Left hip pain Pain in joint, pelvic region and thigh Femoral acetabular impingement Pain of left hip Left hip pain Pain in joint, pelvic region and thigh documented in this [facility] Diagnosis 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- Primary 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 documented in this encounter [facility]* Diagnosis 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- Primary 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 documented in this encounter [facility]* Diagnosis Femoroacetabular impingement of left hip- Primary 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 documented in this encounter [facility]* Diagnosis Left hip pain- Primary Pain in joint, pelvic region and thigh 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 documented in this encounter [facility] HealthcareEvaluation note* Diagnosis Left hip pain- Primary Pain in joint, pelvic region and thigh Left hip pain Pain in joint, pelvic region and thigh documented in this encounter [facility]* Diagnosis Left hip pain- Primary Pain in joint, pelvic region and thigh 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 documented in this encounter [facility] HealthcareEvaluation note* Diagnosis Left hip pain- Primary Pain in joint, pelvic region and thigh 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 documented in this encounter [facility] HealthcareEvaluation note* Diagnosis Left hip pain- Primary Pain in joint, pelvic region and thigh 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 documented in this encounter [facility] HealthcareEvaluation note* Diagnosis Left hip pain- Primary Pain in joint, pelvic region and thigh 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 documented in this encounter [facility] HealthcareEvaluation note* Diagnosis Left hip pain- Primary Pain in joint, pelvic region and thigh 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 documented in this encounter [facility] HealthcareEvaluation note* Diagnosis Postoperative visit- Primary documented in this encounter [facility]* Diagnosis Left hip pain- Primary Pain in joint, pelvic region and thigh 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 documented in this encounter [facility] HealthcareEvaluation note* Diagnosis Femoroacetabular impingement of left hip- Primary documented in this encounter [facility]* Diagnosis Left hip pain- Primary Pain in joint, pelvic region and thigh 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 documented in this encounter [facility] HealthcareEvaluation noteNo assessment information availableWilson Health Work Phone: Evaluation note* Diagnosis Onset Date Resolution Status Admit Date Chest pain acuteSeptember 2024 1:53pmDyspneaacuteSeptember 2024 1:53pmMurmur acuteSeptember 2024 1:53pm [facility] Work Phone: History general Narrative - Reported* Type Description Date Medical History Allergic rhinitis due to pollen Medical HistoryGastro-esophageal reflux disease without esophagitisMedical HistoryBenign prostatic hyperplasia with lower urinary tract symptomsMedical HistoryAsthmatic bronchitis, mild intermittent, uncomplicated [facility] Other Hospital Discharge instructions No data available for this section [facility] General Surgery [place] InstructionsNot on filedocumented in this encounter [facility] SystemInstructionsNot on filedocumented in this encounter [facility] SystemInstructionsNot on filedocumented in this encounter [facility] SystemInstructions* Pre-Procedure Instructions - Rosalva Westbrook RN - 05/07/2024 9:30 AM EDT Your surgery/procedure is scheduled at [facility] on 05/21/2024 at 1145 am Tentative arrival time 915 am per surgeon instructions You will receive a phone call from [facility] the day beforeyour surgery to verify your arrival time. [address] [place] [address]. Park in Entrance D. Report to the registration desk in the main lobby. If you have any questions prior to surgery, you may call Pre-Admission Clinic at [phone] between 7:30 am and 4:30 pm Sunday through Sunday. If you have any concerns the morning of surgery, please call the Pre-op Department at [phone]. Notify your SURGEON if you develop any [...] dermal piercings),hair extensions that contain metal, nail sudanese, make-up, and contact lens. If you received [...] RIGHTS AND RESPONSIBILITIES As a patient at [facility], you have the right to: Receive medical care and be informed of who is taking care of you Be treated with dignity and respect Have a family member/vendor representatives of choice and your physician notified of your admission Receive information and actively participate in decisions about your care and treatment Refuse care, treatment and services Decide who may provide your support and speak for you Access restorationism and spiritual services Participate in ethical issues [...] of hospital charges and payment methods Patient/patient vendor representatives responsibilities are to: Provide information about health status to facilitate care, treatment and services Follow the treatment, plan, keep appointments and speak up when you do not understand the plan Respect the rights of other patients and healthcare personnel Follow organizational rules and regulations that support quality care and a safe environment Fulfill financial obligations as promptly as possible [facility] SystemInstructionsNot on filedocumented in this encounter [facility] [employer] SystemInstructionsNot on filedocumented in this encounter [facility] SystemInstructionsNot on filedocumented in this encounter [facility] Pre-Procedure Instructions - Rosalva Westbrook RN - 05/07/2024 9:30 AM EDT Your surgery/procedure is scheduled at [facility] on 05/21/2024 at 1145 am Tentative arrival time 915 am per surgeon instructions You will receive a phone call from [facility] the day beforeyour surgery to verify your arrival time. [address] [place] [address]. Park in Entrance D. Report to the registration desk in the main lobby. If you have any questions prior to surgery, you may call Pre-Admission Clinic at [phone] between 7:30 am and 4:30 pm Sunday through Sunday. If you have any concerns the morning of surgery, please call the Pre-op Department at [phone]. Notify your SURGEON if you develop any [...] dermal piercings),hair extensions that contain metal, nail sudanese, make-up, and contact lens. If you received [...] RIGHTS AND RESPONSIBILITIES As a patient at [facility], you have the right to: Receive medical care and be informed of who is taking care of you Be treated with dignity and respect Have a family member/vendor representatives of choice and your physician notified of your admission Receive information and actively participate in decisions about your care and treatment Refuse care, treatment and services Decide who may provide your support and speak for you Access restorationism and spiritual services Participate in ethical issues [...] of hospital charges and payment methods Patient/patient vendor representatives responsibilities are to: Provide information about health status to facilitate care, treatment and services Follow the treatment, plan, keep appointments and speak up when you do not understand the plan Respect the rights of other patients and healthcare personnel Follow organizational rules and regulations that support quality care and a safe environment Fulfill financial obligations as promptly as possible [facility] No data available for this section [facility] General Surgery [place] Reason for referral (narrative)* Reason Referral for screeni ng colonoscopy Diagnosis 1 Screening for colon cancer (Z12.11) Referral Organization [facility] florentino Referring Provider First Name Luther Referring Provider Last Name Arturo Referring Provider Specialty Internal Me dicine Referred Organization [facility] Referred Provider Dionisio Callejas Referred Address [address], [place],[address] Referred Provider Specialty Surgery Referral Priority Routine General Notes Dr. Menjivar is being referred for a screening colonoscopy. He is an asymptomatic, low risk patient. He denies family history for colon cancer or polyps. He denies change in appetite, weight or bowel habits. He denies abdominal pain, heartburn or dysphagia. He denies melena or hematochezia. [employer] Other Reason for referral (narrative)* Diagnostic Procedure Only (Routine) - Pending ReviewSpecialtyDiagnoses / ProceduresReferred By ContactReferred To [facility] Diagnoses Left inguinal pain Procedures US PELVIS LTD US PELVIC NONOBSTETRIC IMAGE DCMTN LIMITED/F/U Luther Ann MD [address] [place] [address] [facility] [place] [address] Referral IDStatusReasonStart DateExpiration DateVisits RequestedVisits [id number] Review Auto-Generated Referral T [facility] for referral (narrative)* Diagnostic Procedure Only (Routine) - Pending ReviewSpecialtyDiagnoses / ProceduresReferred By Contact Referred To [facility] Diagnoses Left inguinal pain Procedures US HIP LEFT US COMPL JOINT R-T W/IMAGE DOCUMENTATION Luther Ann MD [address] [place] [address] [place] [address] Referral IDStatusReasonStart DateExpiration DateVisits RequestedVisits [id number] Review Auto-Generated Referral T [facility] for referral (narrative)* Diagnostic Procedure Only (Routine) - ClosedSpecialtyDiagnoses / ProceduresReferred By ContactReferred To [facility] Diagnoses Left inguinal pain Procedures US HIP LEFT US COMPL JOINT R-T W/IMAGE DOCUMENTATION Luther Ann MD [address] [id number] [facility] Referral IDStatusReasonStart DateExpiration DateVisits RequestedVisits [id number] Auto-Generated Referral T [facility] for referral (narrative)No reason for referral information availableSelect [facility] Work Phone: [facility] Narrative* Diagnostic Procedure Only (Routine) - ClosedSpecialtyDiagnoses / ProceduresReferred By ContactReferred To [facility] Diagnoses Left inguinal pain Procedures US HIP LEFT US COMPL JOINT R-T W/IMAGE DOCUMENTATION Luther Ann MD [address] [place] [id number] [place] [address] Referral IDStatusReasonStart DateExpiration DateVisits RequestedVisits [id number] Auto-Generated Referral / [facility] for visit Narrative* Rehabilitation - Outpatient (Routine) - AuthorizedSpecialtyDiagnoses / ProceduresReferred By Contact Referred To ContactPhysical Therapy Diagnoses Other specified joint disorders, left hip Other articular cartilage disorders, left hip Procedures SC PHYSICAL THERAPY EVALUATION LOW COMPLEX 20 MINS Jeana Pierce MD [address] [place] [address] Phone: tel: fax: Micheal Savage, PT [address] [place] [address] Phone: tel: fax: Referral IDStatusReasonStart DateExpiration DateVisits RequestedVisits [id number] Consult and Treat / [facility] for visit Narrative* Rehabilitation - Outpatient (Routine) - AuthorizedSpecialtyDiagnoses / ProceduresReferred By ContactReferred To ContactPhysical Therapy Diagnoses Other specified joint disorders, left hip Other articular cartilage disorders, left hip Procedures SC PHYSICAL THERAPY EVALUATION LOW COMPLEX 20 MINS Jeana Pierce MD [address] [place] [address] Phone: tel: fax: Micheal Savage, PT [address] [place] [address] Phone: tel: fax: Referral IDStatusReasonStart DateExpiration DateVisits RequestedVisits [id number] Consult and Treat / [facility] for visit Narrative* Rehabilitation - Outpatient (Routine) - ClosedSpecialtyDiagnoses / ProceduresReferred By ContactReferred To Contact Physical Therapy Diagnoses Other specified joint disorders, left hip Other articular cartilage disorders, left hip Procedures SC PHYSICAL THERAPY EVALUATION LOW COMPLEX 20 MINS Jeana Pierce MD [address] [place] [address] Phone: tel: fax: Micheal Savage, PT [address] [facility] [place] [address] Phone: tel: fax: Referral IDStatusReasonStart DateExpiration DateVisits RequestedVisits [id number] Consult and Treat [facility] HealthcareReason for visit Narrative* Rehabilitation - Outpatient (Routine) - AuthorizedSpecialtyDiagnoses / ProceduresReferred By ContactReferred To ContactPhysical Therapy Diagnoses Other specified joint disorders, left hip Other articular cartilage disorders, left hip Procedures SC THERAPEUTIC PX 1/> AREAS EACH 15 MIN EXERCISES Jeana Pierce MD [address] [place] [address] Phone: tel: fax: Micheal Savage, PT [address] [place] [address] Phone: tel: fax: Referral IDStatusReasonStart DateExpiration DateVisits RequestedVisits [id number]/[id number]/ [facility] Healthcare Summary Purpose Family History No Family [...] HIGH COMPLEX 45 MINS Brad Hanna MD [address] [place] [address] [facility] [place] [address] [place] [address] Referral IDStatusReasonStart DateExpiration DateVisits RequestedVisits [id number] Review Auto-Generated Referral Chief Complaint and Reason [...] and content) DATE CREATED AUTHOR 08/17/2020 [facility] DATE CREATED AUTHOR AUTHOR'S ORGANIZ ATION 12/23/2021 [facility] DATE CREATED AUTHOR AUTHOR'S ORGANIZ ATION 09/17/2023 [facility] DATE CREATED AUTHOR AUTHOR'S ORGANIZ ATION 03/12/2024 [facility] DATE CREATED AUTHOR AUTHOR'S ORGANIZ ATION 05/22/2024 [facility] DATE CREATED AUTHOR AUTHOR'S ORGANIZ ATION 08/29/2024 [facility] DATE CREATED AUTHOR AUTHOR'S ORGANIZ ATION 10/17/2024 [facility] DATE CREATED AUTHOR AUTHOR'S ORGANIZ ATION 12/07/2024 [facility] REASON FOR VISIT (unrecogniz ed section and content) ReasonCommentsConsultReasonCommentsAppointmentSpecialtyDiagnoses / Procedures Referred By ContactReferred To ContactPhysical Therapy Diagnoses Lt hip pain Procedures SC PHYSICAL THERAPY EVALUATION HIGH COMPLEX 45 MINS Brad Hanna MD Micheal Savage, PT [address] [place] [address] Referral IDStatusReasonStart DateExpiration DateVisits RequestedVisits [id number] PatientNP left hip pain 2 1/2 years, unaware of specific injury, MRI 2 years ago at [facility],, hasdone PT in past 10 sessions, no [...] or prosecute any alcohol or drug abuse patient.White HospitalIn the event this information is protected by the Federal Confidentiality of Alcohol and Drug Abuse Patient Records regulations: The Federal rules restrict any use of the information to criminally investigate or prosecute any alcohol or drug abuse patient.White HospitalIn the event this information is protected by the Federal Confidentiality of Alcohol and Drug Abuse Patient Records regulations: The Federal rules restrict any use of the information to criminally investigate or prosecute any alcohol or drug abuse patient.White HospitalIn the event this information is protected by the Federal Confidentiality of Alcohol and Drug Abuse Patient Records regulations: The Federal rules restrict any use of the information to criminally investigate or prosecute any alcohol or drug abuse patient.White HospitalIn the event this information is protected by the Federal Confidentiality of Alcohol and Drug Abuse Patient Records regulations: The Federal rules restrict any use of the information to criminally investigate or prosecute any alcohol or drug abuse patient.[facility] Care Teams (unrecognized sec tion and content) Team MemberRelationshipSpecialtyStart DateEnd Date Luther Morris MD [address] [facility] [place] [address] PCP - Cweurlu66/10/23Team MemberRelationshipSpecialtyStart DateEnd Date Luther Morris MD [address] [facility] [place] [address] PCP - Lmenbrz65/10/23Team MemberRelationshipSpecialtyStart DateEnd Date Luther Morris MD [address] [facility] [place] [address] PCP - Zyyiisg91/10/23Team MemberRelationshipSpecialtyStart DateEnd Date Luther Morris MD [address] [facility] [place] [address] PCP - Mbcdtvh79/10/23Team MemberRelationshipSpecialtyStart DateEnd Date Luther Morris MD [address] [facility] [place] [address] PCP - Udxxcje79/10/23Team MemberRelationshipSpecialtyStart DateEnd Date Luther Morris MD [address] [facility] [place] [address] PCP - Dcoazbb99/10/23Team MemberRelationshipSpecialtyStart DateEnd Date Luther Morris MD [address] [facility] [place] [address] PCP - Nxybdye05/10/23Team MemberRelationshipSpecialtyStart DateEnd Date Luther Morris MD [address] [facility] [place] [address] PCP - Belimwq63/10/23Team MemberRelationshipSpecialtyStart DateEnd Date Luther Morris MD [address] [facility] [place] [address] PCP - Eapjokh37/10/23Team MemberRelationshipSpecialtyStart DateEnd Date Luther Morris MD [address] [facility] [place] [address] PCP - Misgshf24/10/23Team MemberRelationshipSpecialtyStart DateEnd Date Luther Morris MD [address] [facility] [place] [address] PCP - Lfesqsj96/10/23Team MemberRelationshipSpecialtyStart DateEnd Date Luther Morris MD [address] [facility] [place] [address] PCP - Ibamgfi33/10/23Team MemberRelationshipSpecialtyStart DateEnd Date Luther Morris DO [address] [facility] [place] [address] PCP - GeneralInternal [facility]10/16/23Team MemberRelationshipSpecialtyStart Date End Date Luther Morris DO [address] [facility] [place] [address] PCP - GeneralInternal Medicine10/16/23Team MemberRelationshipSpecialtyStart Date End Date Luther Morris DO [address] [place] [address] PCP - GeneralInternal Medicine10/16/23Team MemberRelationshipSpecialtyStart Date End Date Luther Morris DO [address] [place] [address] PCP - GeneralInternal Medicine10/16/23Team MemberRelationshipSpecialtyStart Date End Date Luther Morris DO [address] [place] [address] PCP - GeneralInternal Medicine10/16/23Team MemberRelationshipSpecialtyStart Date End Date Luther Morris MD PCP - Brgonto17/10/23Team MemberRelationshipSpecialtyStart DateEnd Date Luther Morris MD PCP - Kcaxsuu72/10/23Team MemberRelationshipSpecialtyStart DateEnd Date Luther Morris DO [address] [place] [address] PCP - GeneralInternal Medicine10/16/23Team MemberRelationshipSpecialtyStart Date End Date Luther Morris DO PCP - Euighnb55/10/23Team MemberRelationshipSpecialtyStart DateEnd Date Luther Morris DO PCP - Cocetwr58/10/23Team MemberRelationshipSpecialtyStart DateEnd Date Luther Morris, DO PCP - Pzrllyp90/10/23Team MemberRelationshipSpecialtyStart DateEnd Date Luther Morris, DO PCP - Jvunonu74/10/23Team MemberRelationshipSpecialtyStart DateEnd Date Luther Morris, DO PCP - Mjljrtt47/10/23Team MemberRelationshipSpecialtyStart DateEnd Date Luther Morris, DO PCP - Lokgqcu44/10/23Team MemberRelationshipSpecialtyStart DateEnd Date Luther Morris, DO PCP - Zyffneh83/10/23Team MemberRelationshipSpecialtyStart DateEnd Date Luther Morris, DO PCP - Jtdagqk55/10/23Team MemberRelationshipSpecialtyStart DateEnd Date Luther Morris, DO PCP - Phoaijv84/10/23Team MemberRelationshipSpecialtyStart DateEnd Date Luther Morris, DO [address] [place] [address] PCP - GeneralInternal [facility]10/16/23Team MemberRelationshipSpecialtyStart Date End Date Luther Morris, DO PCP - Tnlsqnf92/10/23Team MemberRelationshipSpecialtyStart DateEnd Date Luther Morris, DO PCP - Zclcdpn18/10/23Team MemberRelationshipSpecialtyStart DateEnd Date Luther Morris, DO PCP - Nqwiqfj60/10/23Team MemberRelationshipSpecialtyStart DateEnd Date Luther Morris, DO PCP - Pctquzm16/10/23Team MemberRelationshipSpecialtyStart DateEnd Date Luther Morris, DO [address] [place] [address] PCP [facility]10/16/23Team MemberRelationshipSpecialtyStart Date End Date Luther Morris, DO PCP Ypmzshs64/10/23 Team Status: Active Member Role Status Dates [...] BE BASED ON THE PRIMARY CLINICAL RECORDS. [facility] [employer], [facility]. provides no warranty or guarantee of the accuracy or completeness of information in this document.
== END 2024-12-16 10:08 | disposition home or self-care (01) ==
LOC: PST 10:07
PROVIDERS: PCP Internal Medicine; Visit Provider Surgery
DX: Z01.818 Encounter for other preprocedural examination (principal); D50.9 Iron deficiency anemia, unspecified

== ENCOUNTER 2024-12-24 07:14 | Day surgery (SDC) | payer OTHER, SELFPAY ==
--- NOTE | 2024-12-24 | OP_ITS ---
OPERATION DATE: 12/24/2024 PREOPERATIVE DIAGNOSIS: Anemia, gastroesophageal reflux disease. POSTOPERATIVE DIAGNOSIS: Linear antral erythematous gastritis with multiple superficial erosions. No active bleeding. PROCEDURE: EGD with multiple antral biopsies. SURGEON: Oren Espana M.D. ANESTHESIA: Monitored anesthesia care. ESTIMATED BLOOD LOSS: Less than 1 mL. INDICATIONS AND CONSENT: Patient is a 49-year-old male with recent history of anemia, as well as a history of gastroesophageal reflux disease. Indications, risks, benefits, alternatives of proceeding with EGD were explained extensively to the patient, including the risks of bleeding, aspiration, esophageal/gastric/duodenal perforation or anesthetic complications. All of his questions were answered. Informed consent was obtained. PROCEDURE: Patient brought to the operating room, placed in the left lateral decubitus position. Monitored anesthesia care was provided. Bite block was placed in the patient?s mouth. Scope was inserted into the oropharynx. Under direct visualization, it was advanced. It was advanced into the esophagus, past the cricopharyngeus, down to the stomach. The stomach was insufflated with air. The pylorus was traversed down to the descending portion of the duodenum. There was no evidence of duodenitis or ulceration. There was no scarring within the pyloric channel. Scope was pulled back into the antrum, where there was noted to be antral gastritis with linear erythematous areas, as well as multiple superficial erosions in the prepyloric area. There was no active bleeding. No old or new blood. The scope was retroflexed. There was no significant hiatal hernia. The GE junction was noted at approximately 39 cm. The Z-line was regular. There was no distal esophagitis or Askew?s changes. The remainder of the esophagus was unremarkable. The scope was then withdrawn. Patient tolerated procedure well, was sent to recovery room in good condition. CC: Dr. Que Nicolas [facility]
[2024-12-24 07:17] VITALS: BP 139/88; PULSE 105; TEMP 36.1; O2SAT 96; BMI 29.9
--- OUTSIDE RECORDS SUMMARY | 2024-12-24 07:17 | XMS_ITS | CCD ---
Author Organization [facility]iniSyor Care Team Providers Care Backup Engineer Name Role Phone ARTURO, DR CORTÉS Admitting [...] Unavailable Ball Luther JACOBSON Primary Care Provider [phone] Jorge David DO Attending Provider [phone] Malatz Jr, Edanalilia Attending Unavailable Joann Jr, Edward Admitting Unavailable Luther Morris Primary Care Unavailable Luther Morris DO Attending Provider [phone] ARTURO LUTHER Primary Care Physician [phone] Oren GIBSON Attending Unavailable LUTHER MORRIS Referring Unavailable Allergies Allergy ClassificationReported Allergen(s)Allergy TypeDate of OnsetReaction(s) Facility (1 source)No Known Medication Allergies; Translations: [No Known Medication Allergies]Propensity to adverse reactions (disorder)[facility] Medications Current Medications MedicationDrug Class(es)DatesSig (Normalized)Sig (Original)acetaminophen 500 mg oral tablet (2 sources)acetaminophen (TYLENOL EXTRA STRENGTH) 500 mg tablet Take 1 tablet (500 mg total) by mouth as needed for pain. Activeacetaminophen 325 mg / HYDROcodone bitartrate 5 mg oral tablet (1 source)Opioid AgonistStart: 05-21-2024 End: 87-25-2524IQVDHyzlsdz-acetaminophen (NORCO) 5-325 mg per tablet Indications: Post-operative pain Take 1-2 tablets by mouth every 6 (six) hours as needed for pain for up to 5 days. Max Daily Amount: 8 tablets 40 tablet 05/21/2024 05/26/2024 ActiveAlbuterol (9 sources)beta2-Adrenergic AgonistStart: 77-04-9123pkud 2 puff(s) by inhalation every six hoursAlbuterol (Eqv-ProAir HFA) 2 puff(s), Inhalation, q6hr Shortness of breath or wheezing, Refill(s) 0Start Date: 11/21/24 Status: Ordered Repeat number: 1Start: 03-38-3832tbhy 1 puff(s) by inhalation every six hours as needed for wheezingAlbuterol Sulfate 90 mcg/actuation HFA aerosol inhaler Active 2 PUFF INHALATION Every 6 hours as needed for shortness of breath or wheezing 8.5 30 2 November 10, 2024 8:47am Complies with drug therapyStart: 01-02-2024 End: 22-31-2973Isonahmws Sulfate 90 mcg/actuation HFA aerosol inhaler Discontinued [...] Inhibitor, Nonsteroidal Anti-inflammatory Drug Start: 05-21-2024 End: 29-29-6691pgmb 1 tablet by mouth in the morningaspirin 81 mg Take 1 tablet (81 mg total) by mouth in the morning and 1 tablet (81 mg total) beforebedtime. Do all this for 30 days. To start after aspirin 325 mg complete. 60 tablet 05/21/2024 06/20/2024 ActiveStart: 05-21-2024 End: 32-43-3852zwgm 1 tablet by mouth in the morning, [...] release oral capsule (1 source)Proton Pump InhibitorStart: 75-85-9719omaf 1 capsule by mouth once dailyNexium 40 mg Cap-EC 40 mg = 1 cap(s), Oral, Daily, Refills(s) 0 Start Date: 12/05/24 Status: Ordered Repeat number: 1ferrous sulfate 325 mg oral tablet (1 source)Start: 13-17-9383autq 1 tablet by mouth once dailyferrous sulfate 325 mg Tab 325 mg = 1 tab(s), Oral, Daily, Refills(s) 0 Start Date: 12/05/24 Status: Ordered Repeat number: 1indomethacin 75 mg extended release oral capsule (4 sources)Nonsteroidal Anti-inflammatory DrugStart: 06-70-2551nbye 1 capsule by mouth at mealtimeindomethacin SR (INDOCIN SR) 75 mg CR capsule Take 1 capsule (75 mg total) by mouth in the morning.With food. 4 capsule 05/21/2024 Active montelukast 10 mg oral tablet (20 sources)Leukotriene Receptor AntagonistStart: 89-31-3122yast 1 tablet by mouth once dailySingulair 10 mg Tab 10 mg = 1 tab(s), Oral, Daily, Refills(s) 0 Start Date: 11/21/24 Status: Ordered Repeat number: 1Start: 46-37-1967wyxj 1 tablet by mouth once daily at bedtimeMontelukast 10 mg tablet Active 0 .ROUTE .COMPLEX 90 3 December 17, 2023 9:45pm TAKE 1 TABLET BY MOUTH EVERYDAY AT BEDTIME Complies with drug therapyStart: 12-17-2023 End: 73-16-4459fnso 1 tablet by mouth once dailyMontelukast 10 mg tablet Discontinued 10 MG PO Daily December 17, 2023 1:00am December 17, 2023 9:45pm Start: 13-15-3207lqmmbqhksmw (SINGULAIR) 10 mg tablet Take by mouth every 24 hours. 0 10/08/2021 Activenaproxen 500 mg oral tablet (2 sources)Nonsteroidal Anti-inflammatory DrugStart: 05-21-2024 End: 82-86-9506sufx 1 tablet by mouth in the morning, [...] mg oral tablet (4 sources)Serotonin-3 Receptor AntagonistStart: 06-28-8302ftfy 1 tablet by mouth every eight hours as needed for nausea and vomitingondansetron (ZOFRAN) 4 mg tablet Take 1 tablet (4 mg total) by mouth every 8 (eight) hours as needed for nausea or vomiting. 20 tablet 05/21/2024 Activepantoprazole 40 mg delayed release oral tablet (4 sources)Proton Pump InhibitorStart: 60-90-1529gdxg 1 tablet by mouth in the morningpantoprazole (PROTONIX) 40 mg EC tablet Take 1 tablet (40 mg total) by mouth in the morning. 10 tablet 05/21/2024 Activetamsulosin (20 sources)alpha-Adrenergic BlockerStart: 58-25-0918rvjciucomg as directed, Refills(s) 0 Start Date: 11/21/24 Status: Ordered Repeat number: 1Start: 09-18-2023 End: 76-50-8206fctk 1 capsule by mouth once dailyTamsulosin 0.4 mg capsule Active 0 .ROUTE .COMPLEX 90 3 September 16, 2024 8:11am TAKE 1 CAPSULE BY MOUTH EVERY DAY FOR 90 DAYS Complies with drug therapyStart: 09-22-2022 End: 34-11-3617nyyk 1 capsule by mouth once dailyTamsulosin 0.4 mg capsule Discontinued 0.4 MG PO Daily September 18, 2023 12:00am September 18, 2023 8:39am tamsulosin (Flomax) 0.4 MG 24 hr capsule Activetelmisartan 20 mg oral tablet (2 sources)Angiotensin 2 Receptor BlockerStart: 91-53-7378svcb 1 tablet by mouth once dailytelmisartan 20 mg oral tablet 20 mg = 1 tab(s), Oral, Daily, Refills(s) 0 Start Date: 12/05/24 Status: Ordered Repeat number: 1Start: 73-28-1911zejo 1 tablet by mouth once dailyTelmisartan 20 mg tablet Active 20 MG PO Daily December 03, 2024 12:00am Complies with drug therapy Problems Active Problems Problem ClassificationProblemDateDocumented DateEpisodic/ChronicAbdominal pain (8 sources)Left lower quadrant pain; Translations: [Left inguinal pain]Onset: 34-35-3727ZvviilsyRwxqtd (9 sources)Mild intermittent asthma; Translations: [Mild intermittent asthma, uncomplicated]23-99-0305RwxqxsmNakqkgjuou and other anemia (4 sources)Iron deficiency anemia; Translations: [Iron deficiency anemia, unspecified]Onset: 326169-98-1735NwtnrtliJwbliaoaxd disorders (10 sources)Gastroesophageal reflux disease without esophagitis; Translations: [Gastro-esophageal reflux disease without esophagitis]Onset: 12-05-2024 76-98-6905DollvwsOoibuwnrmxqum symptoms and ill-defined conditions (6 sources)Delay when starting to pass urine; Translations: [Hesitancy of micturition]EpisodicHeart valve disorders (3 sources)Heart murmur; Translations: [Cardiac murmur, unspecified]11-04-2024 EpisodicHyperplasia of prostate (11 sources)Lower urinary tract symptoms due to benign prostatic hypertrophy; Translations: [Benign prostatic hyperplasia with lower urinary tract symptoms] ChronicJoint disorders and dislocations; trauma-related (20 sources)Other articular cartilage disorders, left hip; Translations: [Acetabular labrum tear]Onset: 179610-85-2029LgquqgaAjhbrbqzyyy chest pain (4 sources)Chest pain; Translations: [Chest pain, unspecified]30-70-8547Bzgxrtjc Other aftercare (1 source)Postoperative visit; Translations: [Encounter for other specified surgical aftercare]94-26-5593ZbpnleowFnfrn aftercare (1 source)Encounter for other specified surgical aftercare; Translations: [Encounter for other specified surgical aftercare]Onset: 52-95-7160RmhfyuqfWgxnj injuries and conditions due to external causes (6 sources)Other specified injuries of abdomen, subsequent encounter; Translations: [OTH SPEC INJURIES ABD SUBSEQUENT]Onset: 17-61-5045LezhmhkoZysxf lower respiratory disease (4 sources)Dyspnea; Translations: [Dyspnea, unspecified]79-36-6895Qlkjpzun Comment on above:Echo: LVEF 55%, normal RV size/function - 11/2024Other nervous system disorders (1 source)Other acute postprocedural pain; Translations: [Other acute postprocedural pain]Onset: 77-23-8170GdaxwvrcIeong non-traumatic joint disorders (20 sources)Hip pain; Translations: [Pain in left hip]Onset: 09-27-2023 40-64-3403IaibkxawYagol non-traumatic joint disorders (20 sources)Pain in right hip joint; Translations: [Pain in right hip]Onset: 651279-03-1168MqcfumdiYkvjr non-traumatic joint disorders (20 sources)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; Translations: [Other specified joint disorders, left hip]Onset: 330255-13-3546Moooxvpt Other non-traumatic joint disorders (4 sources)Enthesopathy of hip region; Translations: [Other specified joint disorders, left hip]67-80-1366CubvaqyuHtlqx nutritional; endocrine; and metabolic disorders (1 source)Lqnssfagqt53-22-4972VxjzninuXotta nutritional; endocrine; and metabolic disorders (1 source)Overweight in adulthood with body mass index of 25 or more but less than 1022-34-1993XmgbvgudAgtgn screening for suspected conditions (not mental disorders or infectious disease) (20 sources)Encounter for screening for malignant neoplasm of prostate; Translations: [Encounter for screening for malignant neoplasm of colon]Onset: 53-63-3382ZbcitqplGiddcdj on above:PSA: 1.58 - 12/2022, 1.59 - SA: 1.58 - 12/2022, 1.59 - 12/2023, 1.46 - 10/2024Other upper respiratory disease (4 sources)Allergic rhinitis due to pollen; Translations: [Allergic rhinitis due to pollen]ChronicOther upper respiratory disease (1 source)Allergic ocgdnzux99-23-4631VzeezfjPjhzqvonywhl (3 sources)CONTACT W/AND (SUSP) EXPOS COVID-19; Translations: [CONTACT W/AND (SUSP) EXPOS COVID-19]Onset: 66-60-5184Jlaololjcmuf (1 source)Femoroacetabular impingement of left hip [M25.852]Onset: 05-21-2024 Unclassified (1 source)Post-opOnset: 56-34-3138Ihsuyotbtxms (1 source)New PatientOnset: 12-18-2023 Past or Other Problems Problem ClassificationProblemDateDocumented DateEpisodic/ChronicOther non- traumatic joint disorders (20 sources)Femoral acetabular impingement; Translations: [Other specified joint disorders, unspecified hip]Onset: 691562-02-6486RrtudspnZyqod non- traumatic joint disorders (3 sources)Other specified joint disorders, left hip; Translations: [Other specified joint disorders, left hip]Onset: 21-58-1482VdurqbusZojwd non-traumatic joint disorders (2 sources)Other specified joint disorders, unspecified hip; Translations: [Other specified joint disorders, unspecified hip]Onset: 44-31-6271HdepdbicMyeov non-traumatic joint disorders (2 sources)Pain in left hip; Translations: [Pain in left hip]Onset: 12-18-2023 EpisodicResidual codes; unclassified (1 source)PainOnset: 53-94-0008XtzlqjqeHwzszipyhvtu (1 source)CONTACT W/AND (SUSP) EXPOS COVID-19; Translations: [CONTACT W/AND (SUSP) EXPOS COVID-19]Onset: 02-15-2021 Results Test NameValueInterpretationReference RangeFacilityAmbulatory Visit Summaryon 31-50-2664Wjbrfjjqwm Visit SummaryAmbulatory Visit Summary ANJUMJanesHENRIK :1975 Visit [...] signed up for this yet, please contact Varolii at [phone] to get signed up today. Language Information Language assistance services are available as needed. NormalUnc Healther Grace Medical CenterBasophils Auto (Bld) [#/Vol] Ordered By: Luther Morris on 78-56-8558Ztfaazvfm (Bld) [#/Vol]0.0 10 3/uL0.0-0.1 [facility] HospitalBasophils/100 WBC Auto (Bld)Ordered By: Luther Morris on 57-03-8811Qjavwowka/100 WBC (Bld)0.5 %0.2-2.0[facility] HospitalEosinophils/100 WBC Auto (Bld)Ordered By: Luther Morris on 21-30-0856Ywjkrslvymv/100 WBC (Bld)1.8 %0.9-7.0[facility] Erythrocyte distribution width Auto (RBC) [Ratio]Ordered By: Luther Morris on 99-83-7207Avokenkuvma distribution width (RBC) [Ratio]22.3 %High11.0-15.0 [facility] HospitalHematocrit Auto (Bld) [Volume fraction]Ordered By: Luther Morris on 90-13-6883Jvbnrsvuvg (Bld) [Volume fraction]40.9 %Low 42.0-54.0[facility] HospitalHemoglobin [Mass/volume] in Blood Ordered By: Luther Morris on 56-19-6496Kfydopycmo (Bld) [Mass/Vol]12.4 g/dLLow 14.0-18.0[facility] HospitalIron binding capacity [Mass/volume] in Serum or PlasmaOrdered By: Luther Morris on 96-28-2214Eudy binding capacity [Mass/Vol]401.0 ug/dL250.0-450.0[facility] HospitalIron saturation [Mass Fraction] in Serum or PlasmaOrdered By: Luther Morris on 28-05-7545Migy saturation [Mass fraction]6.5 %[facility] HospitalLaboratory - Chemistry and Chemistry - challengeOrdered By: Luther Morris on 11-18-2024 Ferritin [Mass/Vol]33.0 ng/mL26.0-388.0[facility] HospitalIron [Mass/Vol]26.0 ug/dLLow65.0-175.0[facility] HospitalLaboratory - Hematology and Cell countsOrdered By: Luther Morris on 83-22-4503Zdeafirc granulocytes/100 WBC (Bld)0.5 %0.0-0.5FMercy Health St. [facility] Leukocytes [#/volume] corrected for nucleated erythrocytes in Blood by Automated counOrdered By: uLther Morris on 11-48-7122IRD corrected for nucl RBC Auto (Bld) [#/Vol]6.6 10 3/uL4.0-11.0[facility] HospitalLymphocytes Auto (Bld) [#/Vol]Ordered By: Luther Morris on 58-35-1429Jvlfncwsyke (Bld) [#/Vol]1.7 10 3/uL1.2-3.8[facility] HospitalLymphocytes/100 WBC Auto (Bld)Ordered By: Luther Morris on 01-42-5817Kyespiormys/100 WBC (Bld)26.2 % 20.5-60.0[facility]H Auto (RBC) [Entitic mass]Ordered By: Luther Morris on 44-20-7549FRP (RBC) [Entitic mass]23.1 pgLow25.9-34.0 [facility] HospitalMCHC Auto (RBC) [Mass/Vol]Ordered By: Luther Morris on 89-57-6582CNJX (RBC) [Mass/Vol]30.3 g/dL29.9-35.2FMercy Health St. Vincent Medical CenterMCV Auto (RBC) [Entitic vol]Ordered By: Luther Morris on 83-20-7774QGE (RBC) [Entitic vol]76.3 fLLow80.0-94.0[facility] HospitalMonocytes Auto (Bld) [#/Vol]Ordered By: Luther Morris on 11-18-2024 Monocytes (Bld) [#/Vol]0.7 10 3/uL0.3-0.8[facility] Monocytes/100 WBC Auto (Bld)Ordered By: Luther Morris on 19-58-3655Zbhxwldqc/100 WBC (Bld)10.7 %1.7-12.0[facility] HospitalNeutrophils Auto (Bld) [#/Vol]Ordered By: Luther Morris on 24-29-2528Puqzeclhzvh (Bld) [#/Vol]4.0 10 3/uL1.4-6.5FMercy Health St. Vincent Medical CenterNeutrophils/100 WBC Auto (Bld) Ordered By: Luther Morris on 64-63-8942Hkvtjchlunq/100 WBC (Bld)60.3 %43.0-75.0 [facility] HospitalNo Panel InformationOrdered By: Luther Morris on 01-19-7257Trbvaenjcur # (Auto)0.1 10 3/uL0.0-0.7FMercy Health St. Vincent Medical CenterImmature Granulocyte # (Auto)0.03 10 3/uL0.00-0.03[facility] HospitalPlatelet mean volume Auto (Bld) [Entitic vol]Ordered By: Luther Morris on 94-11-4222Kfkctxtg mean volume (Bld) [Entitic vol]10.7 fL9.5-13.5 [facility] HospitalPlatelets Auto (Bld) [#/Vol]Ordered By: Luther Morris on 30-68-4976Oqslubegu (Bld) [#/Vol]300 10 3/bC471-947CiyxukosgHenry County HospitalRBC Auto (Bld) [#/Vol]Ordered By: Luther Morris on 22-21-8762SEF (Bld) [#/Vol]5.36 10 6/uL4.70-6.10[facility] HospitalReticulocytes/100 RBC Auto (Bld)Ordered By: Luther Morris on 11-18-2024 Reticulocytes/100 RBC (Bld)2.98 %0.60-3.10[facility] Basophils Auto (Bld) [#/Vol]Ordered By: Luther Morris on 26-69-5383Jzzpxnjkl (Bld) [#/Vol]0.0 10 3/uL0.0-0.1FMercy Health St. Vincent Medical CenterBasophils/100 WBC Auto (Bld)Ordered By: Luther Morris on 13-70-3889Zobyihjsf/100 WBC (Bld)0.5 %0.2-2.0[facility] HospitalEosinophils/100 WBC Auto (Bld)Ordered By: Luther Morris on 08-60-4466Fhbyuuscxpe/100 WBC (Bld)0.9 %0.9-7.0[facility] HospitalErythrocyte distribution width Auto (RBC) [Ratio]Ordered By: Luther Morris on 39-11-2784Kymzhqmczjh distribution width (RBC) [Ratio]17.1 %High11.0-15.0[facility] HospitalFibrin D-dimer [Presence] in Platelet poor plasma by Latex agglutinationOrdered By: Luther Morris on 53-95-1898Zgwsba D-dimer LA Ql (PPP)0.19 mg/L FEU<=0.59[facility] HospitalComment on above:Increases in D-Dimer concentration observed [...] Calc (S) [Mass/Vol]Ordered By: Luther Morris on 94-62-2693Wflhljgx (S) [Mass/Vol]3.7 g/dLHenry County Hospital Glomerular filtration rate (GFR) estimation in non- AmericanOrdered By: Luther Morris on 69-72-9674WZW/1.73 sq M.predicted among non-blacks MDRD (S/P/Bld) [Vol rate/Area]mL/min/{1.73_m2}>=60 mL/min/1.73m 2FMercy Health St. Vincent Medical CenterHematocrit Auto (Bld) [Volume fraction]Ordered By: Luther Morris on 17-84-5041Slampkeprl (Bld) [Volume fraction]35.9 %Low42.0-54.0[facility] HospitalHemoglobin [Mass/volume] in BloodOrdered By: Luther Morris on 04-89-4702Ohjslwftzh (Bld) [Mass/Vol]10.9 g/dLLow14.0-18.0[facility] HospitalLaboratory - Chemistry and Chemistry - challengeOrdered By: Luther Morris on 71-46-6403Schstft [Mass/Vol]3.8 g/dL3.4-5.0[facility] HospitalALP [Catalytic activity/Vol]84 U/W01-883TxlynkhpmHenry County HospitalALT [Catalytic activity/Vol]33 U/O32-19ArhbdgkloHenry County HospitalAST [Catalytic activity/Vol]21 U/L62-36XraikuqubHenry County HospitalBilirubin [Mass/Vol]0.6 mg/dL0.2-1.0[facility] Calcium [Mass/Vol]8.6 mg/dL8.5-10.1FMercy Health St. Vincent Medical CenterChloride [Moles/Vol]102 mmol/Y08-007RfuyodstsHenry County HospitalCO2 [Moles/Vol]24.6 mmol/L21.0-32.0[facility] HospitalCreatinine [Mass/Vol]1.10 mg/dL 0.70-1.30[facility] HospitalGFR/1.73 sq M.predicted MDRD (S/P/Bld) [Vol rate/Area]mL/min/{1.73_m2}>=60 mL/min/1.73m 2FMercy Health St. Vincent Medical CenterGlucose [Mass/Vol]152 mg/sZMgfi18-136ObhqctfdqHenry County Hospital Potassium [Moles/Vol]3.3 mmol/LLow3.5-5.1FMercy Health St. [facility] Center Protein [Mass/Vol]7.5 g/dL6.4-8.2FDiley Ridge Medical Centerodium [Moles/Vol]134 mmol/IEft400-449RvqlocldgHenry County HospitalTSH Qn1.168 m[IU]/L0.358-3.740[facility] HospitalUrea nitrogen [Mass/Vol]13.0 mg/dL7.0-18.0[facility] HospitalUrea nitrogen/Creatinine [Mass ratio]11.8 mg/mgHenry County HospitalLaboratory - Hematology and Cell countsOrdered By: Luther Morris on 88-46-9922Oelgwzqw granulocytes/100 WBC (Bld)0.4 %0.0-0.5FMercy Health St. Vincent Medical CenterLeukocytes [#/volume] corrected for nucleated erythrocytes in Blood by Automated counOrdered By: Luther Morris on 27-79-0061SDJ corrected for nucl RBC Auto (Bld) [#/Vol]5.7 10 3/uL4.0-11.0[facility] HospitalLymphocytes Auto (Bld) [#/Vol] Ordered By: Luther Morris on 15-88-7857Ijryiuvrszc (Bld) [#/Vol]1.7 10 3/uL 1.2-3.8[facility] HospitalLymphocytes/100 WBC Auto (Bld)Ordered By: Luther Morris on 96-75-8819Apjxhbdzdpr/100 WBC (Bld)29.8 %20.5-60.0[facility] HospitalMCH Auto (RBC) [Entitic mass]Ordered By: Luther Morris on 67-03-4798JKF (RBC) [Entitic mass]22.2 pgLow25.9-34.0[facility] HospitalMCHC Auto (RBC) [Mass/Vol]Ordered By: Luther Morris on 11-04-2024 MCHC (RBC) [Mass/Vol]30.4 g/dL29.9-35.2FSumma Health Wadsworth - Rittman Medical CenterV Auto (RBC) [Entitic vol]Ordered By: Luther Morris on 85-22-2249NUM (RBC) [Entitic vol]73.3 fLLow80.0-94.0[facility] HospitalMonocytes Auto (Bld) [#/Vol]Ordered By: Luther Morris on 13-60-7242Cyahennay (Bld) [#/Vol]0.4 10 3/uL 0.3-0.8[facility] HospitalMonocytes/100 WBC Auto (Bld)Ordered By: Luther Morris on 22-18-3398Rwpkzeqte/100 WBC (Bld)7.8 %1.7-12.0[facility] HospitalNeutrophils Auto (Bld) [#/Vol]Ordered By: Luther Morris on 55-33-3910Rbtwrwfyvaj (Bld) [#/Vol]3.4 10 3/uL1.4-6.5FMercy Health St. Vincent Medical CenterNeutrophils/100 WBC Auto (Bld)Ordered By: Luther Morris on 01-74-9974Lruddrhdnzd/100 WBC (Bld)60.6 %43.0-75.0[facility] HospitalNo Panel InformationOrdered By: Luther Morris on 15-78-4143Drsasvbpzbb # (Auto)0.1 10 3/uL0.0-0.7FMercy Health St. Vincent Medical CenterImmature Granulocyte # (Auto)0.02 10 3/uL0.00-0.03[facility] HospitalProstate Specific Antigen Screen1.46 ng/mL<=4.00[facility] HospitalTroponin I High Sensitivity8.3 pg/mL4.0-76.1FMercy Health St. Vincent Medical CenterComment on above: CUT-OFF POINTS HAVE BEEN ESTABLISHED [...] (Bld) [Entitic vol]Ordered By: Luther Morris on 67-74-5346Rorpyepu mean volume (Bld) [Entitic vol]10.7 fL 9.5-13.5FMercy Health St. Vincent Medical CenterPlatelets Auto (Bld) [#/Vol]Ordered By: Luther Morris on 45-36-8961Qplfzmxny (Bld) [#/Vol]348 10 3/rS037-359PhnvilzcmHenry County HospitalRBC Auto (Bld) [#/Vol]Ordered By: Luther Morris on 71-56-7397DXW (Bld) [#/Vol]4.90 10 6/uL4.70-6.10[facility] Hospitalerum or plasma albumin/globulin mass ratioOrdered By: Luther Morris on 20-91-1892Mzruahg/Globulin [Mass ratio]1.0 {ratio}[facility]ton Hospitalerum or plasma anion gap determinationOrdered By: Luther Morris on 15-43-4854Ekaun gap [Moles/Vol]10.7 mmol/LFMercy Health St. Vincent Medical CenterBasic Metabolic Raygoza w/Rfx A1Con 72-21-8373FBV/1.73 sq M.predicted MDRD (S/P/Bld) [Vol rate/Area]mL/min/{1.73_m2}NormalThe Critical Access Hospital Physician GroupComment on above: Performed By: #### REVA LIPID, EMP BMP #### [facility] [address] [place] [address] USACalcium [Mass/volume] in Serum or PlasmaOrdered By: Jorge David on 80-89-7311Ofywwtb [Mass/Vol]9.4 mg/dL8.6-10.3FMercy Health St. Vincent Medical CenterComment on above:Performed By: #### EBS LIPID, EMP BMP #### [facility] [address] [place] [address] USACarbon dioxide, total [Moles/volume] in Serum or Plasma Ordered By: Jorge David on 49-76-1429JY7 [Moles/Vol]25.7 mmol/L21.0-31.0 [facility] HospitalComment on above:Performed By: #### EBS LIPID, EMP BMP #### [facility] [address] [place] [address] USAChloride [Moles/volume] in Serum or PlasmaOrdered By: Jorge David on 55-51-3593Mfimqbxm [Moles/Vol]105 mmol/F47-882OtqnbtcodHenry County HospitalComment on above:Performed By: #### EBS LIPID, EMP BMP #### [facility] [address] [place] [address] USACholesterol [Mass/volume] in Serum or PlasmaOrdered By: Jorge David on 10-85-5545Sbdprtirhfr [Mass/Vol]205 mg/vGKmbd405-460ThrncnesaHenry County HospitalComment on above:Chol less than 200 mg/dl low riskChol 201-239 mg/dl borderline riskChol 240 mg/dl and greater high riskResult Comment: Chol less than 200 mg/dl low risk Chol 201-239 mg/dl borderline risk Chol 240 mg/dl and greater high riskPerformed By: #### EBS LIPID, EMP BMP #### [facility] [address] [place] [address] USACholesterol in HDL [Mass/volume] in Serum or PlasmaOrdered By: Jorge David on 58-06-3641Fcngacjfhnj in HDL [Mass/Vol]46 mg/dL23-92 [facility] HospitalComment on above:HDL CHOL ATP-III CLASSIFICATION Cardiovascular RiskHDL > or equal to 60 mg/dL LOWHDL < 40 mg/dL HIGHResult Comment: HDL CHOL ATP-III CLASSIFICATION Cardiovascular Risk HDL > or equal to 60 mg/dL LOW HDL < 40 mg/dL HIGHPerformed By: #### EBS LIPID, EMP BMP #### [facility] [address] [place] [address] USACholesterol in LDL Calc [Mass/Vol]Ordered By: Jorge David on 57-06-9459Hgydjupbiut in LDL [Mass/Vol]126 mg/dLHigh0-100[facility] HospitalComment on above:LDL ATP III CLASSIFICATIONLDL less than 100 mg/dL OptimalLDL 100-129 mg/dL Near or above ncxrsbqXLS031-556 mg/dL Borderline highLDL 160-189 mg/dL HighLDL greater than 189 mg/dL Very high Cholesterol in VLDL Calc [Mass/Vol]Ordered By: Jorge David on 10-10-2024 Cholesterol in VLDL [Mass/Vol]32 mg/dLHenry County Hospital Creatinine [Mass/volume] in Serum or PlasmaOrdered By: Jorge David on 24-00-4985Rubugbxmll [Mass/Vol]1.05 mg/dL0.70-1.30[facility] HospitalComment on above:Performed By: #### EBS LIPID, EMP BMP #### [facility] [address] [place] [address] USAGlomerular filtration rate [Volume Rate/Area] in Serum, Plasma or Blood by CreatinineOrdered By: Jorge David on 16-33-6080Bljijectuz filtration rate [Volume Rate/Area] in Serum, Plasma or Blood by Creatinine> 60.0 mL/MinHenry County HospitalGlucose [Mass/volume] in Serum or Plasma Ordered By: Jorge David on 81-15-4214Cunqwto [Mass/Vol]93 mg/eB68-845JjdkxdtnxHenry County HospitalComment on above:Performed By: #### EBS LIPID, EMP BMP #### [facility] [address] [place] [address] USALipid Profileon 56-86-8714ELO Cholesterol,Eeldoqsjuy415 mg/dLHigh0-100The Critical Access Hospital Physician GroupComment on above:Result Comment: LDL ATP III CLASSIFICATION LDL less than 100 mg/dL Optimal LDL 100-129 mg/dL Near or above optimal LDL 130-159 mg/dL Borderline high LDL 160-189 mg/dL High LDL greater than 189 mg/dL Very highPerformed By: #### EBS LIPID, EMP BMP #### [facility] [address] [place] [address] USATriglyceride w/Qqjdsx599 mg/dLHigh0-149The [facility] Access Hospital Physician GroupComment on above:Result Comment: TRIG ATP III CLASSIFICATION TRIG less than 150 mg/dL Normal TRIG 150-199 mg/dL Borderline high TRIG 200-500 mg/dL High TRIG greater than 500 mg/dL Very high Standard traceable to the Center for Disease Conrtrol and Prevention (CDC) test method.Performed By: #### EBS LIPID, EMP BMP #### [facility] [address] [place] [address] USAVLDL IJEHYBWJXRW45 mg/dLNoQuorum Health Physician GroupComment on above:Performed By: #### EBS LIPID, EMP BMP #### [facility] [address] [place] [address] USANo Panel InformationOrdered By: Jorge David on 84-41-2399Pnjypgoo Creatinine Clearance (ChemN/[facility]ike Community HospitalPotassium [Moles/volume] in Serum or PlasmaOrdered By: Jorge David on 16-86-5357Tpiyzjlid [Moles/Vol]4.6 mmol/L3.5-5.1FMercy Health St. Vincent Medical CenterComment on above:Performed By: #### REVA LIPID, EMP BMP #### [place] [address] USASerum or plasma anion gap determinationOrdered By: Jorge David on 49-06-4199Wjxek gap [Moles/Vol]10.9 mmol/L6.0-15.0Henry County HospitalComment on above:Performed By: #### EBS LIPID, EMP BMP #### [place] [address] USASerum or plasma total cholesterol/high density lipoprotein (HDL) cholesterol mass ratOrdered By: Jorge David on 10-10-2024 Cholesterol.total/Cholesterol in HDL [Mass ratio]4.5 {ratio}<5.0Henry County HospitalComment on above:Result Comment: PERFORMED BY: [place] [address] PATHOLOGIST BUSINESS REPORTER WENDI KAYE M.D.Performed By: #### EBS LIPID, EMP BMP #### [place] [address] USASodium [Moles/volume] in Serum or PlasmaOrdered By: Jorge David on 00-88-8662Qiroev [Moles/Vol]137 mmol/E089-878PommuqkdzHenry County HospitalComment on above:Performed By: #### EBS LIPID, EMP BMP #### [facility] [address] [place] [address] USATriglyceride [Mass/volume] in Serum or PlasmaOrdered By: Jorge David on 92-06-9625Hwknfgwfujyb [Mass/Vol]164 mg/dLHigh0-149Henry County HospitalComment on above:TRIG ATP III CLASSIFICATIONTRIG less than 150 mg/dL NormalTRIG 150-199 mg/dL Borderline highTRIG 200-500 mg/dL High TRIG greater than 500 mg/dL Very highStandard traceable to the Center for Disease Conrtrol and Prevention (CDC) test method.Urea nitrogen [Mass/volume] in Serum or PlasmaOrdered By: Jorge David on 44-22-8477Cfsh nitrogen [Mass/Vol] 14 mg/dL7-25Henry County HospitalComment on above:Performed By: #### EBS LIPID, EMP BMP #### [facility] [address] [place] [address] USAXR Pelvis and Hip - left 2 Viewson 06-02-9655TH and lateral x-rays left hip reviewed stable appearing joint space no acute osseous abnormalities this is my independent interpretation.MANUALLY TRANSCRIBED RESULTSNorwalk Memorial Hospital Molecular Biometrics [facility] HospitalRadiology Study observation (narrative)[facility] HospitalEasy Metrics [facility]legan HospitalCT HIP LT WO CONTon [id number] HIP LT WO CONTCT HIP LT WO [...] by Nestor Ricketts MD on 03/10/2024 5:58 [facility] CampusMR ARTHROGRAM HIP LT W CONTon [id number] ARTHROGRAM HIP LT W CONTMR ARTHROGRAM HIP [...] Cornelius MD on 01/22/2024 9:49 [facility] CampusFL MR/CT ARTHROGRAM HIP LT W INJon 28-59-1176IN MR/CT ARTHROGRAM HIP LT W INJFL MR/CT [...] Vera MD on 01/21/2024 3:00 [facility] CampusXR Pelvis and Hip - left 2 Viewson 10-33-6467QI, 45 degree Flowers lateral, and false profile x-rays of the left hip were obtained in the office today. 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 Tonus grade 1 no acute osseous abnormalities. MANUALLY TRANSCRIBED [facility] CenterRadiology Study observation (narrative)[facility] 58-25-0739KGXLJlkdwx Visit (GENSMN) HENRIK MENJIVAR ([id number]) 1975 M Date Time Provider Department 09/10/23 [...] Brad Hanna MD 09/14/2023 2:54 PM Signed [facility] Abdominal [facility] - HISTORY AND PHYSICAL Chief [...] no inguinal hernia found US - 08/15/23 Idfs-nh-ufkgyyeo tendinosis adductor origin without tear or hyperemia. [...] Order(s):CONSULT TO PHYSICAL THERAPY [9032] Order #: [id number]: 1 FUTURE Prescriptions as of 09/14/2023 - [...] Have you had unintention (more content not included)...NormalTrumbull Regional Medical CenterUS HIP LTon [id number] HIP LT* * *Final Report* * * [...] with mild hyperemia. No joint effusion. IMPRESSION: Adqd-xd-klthdttt tendinosis adductor origin without tear or hyperemia. Synovial thickening of the anterior hip joint with mild hyperemia. Beauty Therapist: [facility] Transcribe Date/Time: Aug 15 2023 1:52P Dictated by : SARAH GARDNER MD This examination was interpreted and the report reviewed and electronically signed by: SARAH GARDNER MD on Aug 15 2023 1:58PM EST [id number] Medical Specialty [facility] Hip - lefton 08-15-2023 IMPRESSION: Jqec-ru-aoyxcxnc tendinosis adductor origin without tear or hyperemia. Synovial thickening of the anterior hip joint with mild hyperemia. Beauty Therapist: [facility] Transcribe Date/Time: Aug 15 2023 1:52P [...] hyperemia. No joint effusion. DIVISION OF RADIOLOGYProvider, [facility] [place] - 08/15/2023 * * *Final Report* * [...] mild hyperemia. No joint effusion. IMPRESSION IMPRESSION: Qrpy-pp-ycymooep tendinosis adductor origin without tear or hyperemia. Synovial thickening of the anterior hip joint with mild hyperemia. Beauty Therapist: [facility] Transcribe Date/Time: Aug 15 2023 1:52P Dictated by : SARAH GARDNER MD This examination was interpreted and the report reviewed and electronically signed by: SARAH GARDNER MD on Aug 15 2023 1:58PM EST [facility] HospitalRadiology Study observation (narrative)[facility] Hip - leftOrdered By: Ccf Provider on 66-75-1484Rjtakxnso ClinicCNPNon 03-58-5034KGAA Telephone (RULTTB) HENRIK MENJIVAR ([id number]) 1975 M Date Time Provider Department 07/11/23 [facility] During your visit today, we recorded [...] (None) Encounter Status:Closed by NATALIA OLIVEIRA on 07/11/23NoOhioHealth Berger Hospital 14-06-8935PTVYDallwa Visit (NELDA) ANJUMHENRIK Marrero ([id number]) 1975 M Date Time Provider Department 07/10/23 [...] Filomena Arreola MD 07/10/2023 11:12 AM Signed [facility] Abdominal [facility] - HISTORY AND PHYSICAL Chief [...] chronic pain management Plan (more content not included)...NormalUK Healthcare PHYSICALon 74-88-3319PJSKGHZ PHYSICALHNO ID: [id number] Author: FILOMENA ARREOLA MD Service: ? Author Type: Resident Type: H&P Filed: 07/10/2023 11:12 Note Text: [facility]dominal [facility] - HISTORY AND PHYSICAL Chief [...] MD General Surgery Resident, PGY-1 07/10/2023 10:23 AMNormalTrumbull Regional Medical CenterMR PELVIS WO W CONon 50-80-3863BLA PELVIS WO W CONEXAMINATION: MRI PELVIS WO [...] Electronically authenticated by: BRAD NEW Date: 2021-12-16 15:05[facility]CT [facility]/PELV W CONon 18-03-0066DY ABD/PELV W CONEXAMINATION: CT ABD/PELV W CON, [...] Electronically authenticated by: BRAD NEW Date: 2021-06-17 16:50NoW[facility] AUTO DIFFon [id number] #0.0 103/ulNormal0.0-0.1[facility] Medical CenterComment on above:Performed By: #### CBC #### [facility] [address] [place] [address] Dr. Gala JohnsonBasophils/100 WBC (Bld)0.6 %Normal0.2-2.0[facility] Comment on above:Performed By: #### CBC #### [facility] [address] [place] [address] Dr. Gala Manuel #0.1 103/ulNormal0.0-0.7The [facility] HospitalComment on above: Performed By: #### CBC #### [facility] [address] [place] [address] Dr. Gala Lopezosinophils/100 WBC (Bld)1.2 %Normal0.9-7.0[facility] Comment on above:Performed By: #### CBC #### [facility] [address] [place] [address] Dr. Gala Lopezrythrocyte distribution width (RBC) [Ratio]13.1 %Tdzgmh07.0-15.0 The [facility] HospitalComment on above:Performed By: #### CBC #### [facility] [address] [place] [address] Dr. Gala JohnsonHematocrit (Bld) [Volume fraction]49.3 %Ubeqbq21.0-54.0The [facility] HospitalComment on above:Performed By: #### CBC #### [facility] [address] [place] [address] Dr. Gala JohnsonHemoglobin (Bld) [Mass/Vol]15.8 g/yUBsmkmx72.0-18.0The [facility] HospitalComment on above:Performed By: #### CBC #### [facility] [address] [place] [address] Dr. Gala Stone #0.02 10e3/ulNormal0.00-0.03The [facility] HospitalComment on above:Performed By: #### CBC #### [facility] [address] [place] [address] Dr. Gala Stone %0.3 %Normal0.0-0.5The [facility] HospitalComment on above: Performed By: #### CBC #### [facility] [address] [place] [address] Dr. Gala Keen #2.3 103/ulNormal1.2-3.8The [facility] HospitalComment on above:Performed By: #### CBC #### [facility] [address] [place] [address] Dr. Gala Bellhocytes/100 WBC (Bld)33.5 %Gxkpza28.5-60.0The [facility] HospitalComment on above:Performed By: #### CBC #### [facility] [address] [place] [address] Dr. Gala VargasUAL DIFF REQNONormalThe [facility] HospitalComment on above: Performed By: #### CBC #### [facility] [address] [place] [address] Dr. Gala Watts (RBC) [Entitic mass]30.3 csUgklzp47.9-34.0The [facility] HospitalComment on above:Performed By: #### CBC #### [facility] [address] [place] [address] Dr. Gala Watts (RBC) [Mass/Vol]32.0 g/hCCukyda46.9-35.2The [facility] HospitalComment on above:Performed By: #### CBC #### [facility] [address] [place] [address] Dr. Gala Fagan (RBC) [Entitic vol]94.4 fLCritically high80.0-94.0The [facility] HospitalComment on above:Performed By: #### CBC #### [facility] [address] [place] [address] Dr. Gala Yepez #0.6 103/ulNormal0.3-0.8The [facility] HospitalComment on above:Performed By: #### CBC #### [facility] [address] [place] [address] Dr. Gala Randleocytes/100 WBC (Bld)8.3 %Normal1.7-12.0The [facility] Comment on above:Performed By: #### CBC #### [facility] [address] [place] [address] Dr. Gala Ochoa #3.8 103/ulNormal1.4-6.5The [facility] HospitalComment on above:Performed By: #### CBC #### [facility] [address] [place] [address] Dr. Gala Boswellutrophils/100 WBC (Bld)56.1 %Tdlpvq10.0-75.0The [facility] HospitalComment on above:Performed By: #### CBC #### [facility] [address] [place] [address] Dr. Gala Johnsonlet mean volume (Bld) [Entitic vol]11.9 fLNormal9.5-13.5The [facility] HospitalComment on above:Performed By: #### CBC #### [facility] [address] [place] [address] Dr. Gala JohnsonPLT246 103/qvLrafkk256-578Gkj [facility] HospitalComment on above: Performed By: #### CBC #### [facility] [address] [place] [address] Dr. Gala JohnsonRBC5.22 106/ulNormal4.70-6.10The [facility] on above:Performed By: #### CBC #### [facility] [address] [address] [address] Gala JohnsonWBC6.8 103/ulNormal4.0-11.0[facility] on above: Performed By: #### CBC #### [facility] [address] [address] [address] Gala JohnsonGLYCOHEMOGLOBIN A1Con 63-86-5733UTQ RECOMMENDATIONSEE [facility] CampusComformerly [facility] on above:Result Comment: ADA RECOMMENDED LIMIT 4.0 - 6.0 ADA THERAPEUTIC TARGET < 7.0 ACTION SUGGESTED > 7.0Performed By: #### A1C #### [facility] [address] [place] [address] Dr. Gala JohnsonGlucose [Mass/Vol]117 mg/dLNoSelect Medical Specialty Hospital - Trumbull on above:Performed By: #### A1C #### [facility] [address] [place] [address] Dr. Gala JohnsonHbA1c (Bld) [Mass fraction]5.7 %Normal4.5-6.2[facility] on above:Performed By: #### A1C #### [facility] [address] [place] [address] Dr. Gala JohnsonLIPID PROFILEon 21-59-9695NGLU-HDL RATIO NORMSEE [facility]-FairhillComformerly [facility] on above:Result Comment: 3.3 - 4.4 LOW RISK 4.4 - 7.1 AVERAGE RISK 7.1 - 11.0 MODERATE RISK >11.0 HIGH RISKPerformed By: #### LIPID, TSH, CMP #### [facility] [address] [place] [address] Dr. Gala JohnsonCholesterol [Mass/Vol]236 mg/dLCritically high<=200[facility] on above:Performed By: #### LIPID, TSH, CMP #### [facility] [address] [place] [address] Dr. Gala JohnsonCholesterol in HDL [Mass/Vol]47 mg/hOCqygfy60-09SgqUniversity Hospitals Parma Medical Center on above:Performed By: #### LIPID, TSH, CMP #### [facility] [address] [place] [address] Dr. Gala JohnsonCholesterol in LDL [Mass/Vol]134.0 mg/dLNoDayton Children's HospitalComformerly [facility] on above:Performed By: #### LIPID, TSH, CMP #### [facility] [address] [place] [address] Dr. Gala Ludwigesterbrian.total/Cholesterol in HDL [Mass ratio]5.0 {ratio} NormalThe [facility] on above:Performed By: #### LIPID, TSH, CMP #### [facility] [address] [place] [address] Dr. Gala Pulido NORMAL> or = 60 mg/dl - LOW CARDIOVASCULAR RISK <40 mg/dl - HIGH CARDIOVASCULAR RISKNoDayton Children's HospitalComformerly [facility] on above:Performed By: #### LIPID, TSH, CMP #### [facility] [address] [place] [address] Dr. Gala Martines CALC NORMALSEE BELOWKettering HealthComformerly [facility] on above:Result Comment: <100 mg/dl OPTIMAL 100 - 129 mg/dl NEAR OR ABOVE OPTIMAL 130 - 159 mg/dl BORDERLINE HIGH 160 - 189 mg/dl HIGH >190 mg/dl VERY HIGH Performed By: #### LIPID, TSH, CMP #### [facility] [address] [place] [address] Dr. Gala JohnsonTriglyceride [Mass/Vol]275 mg/dLCritically high<=150[facility] on above:Performed By: #### LIPID, TSH, CMP #### [facility] [address] [place] [address] Dr. Gala JohnsonVLDL CALC55.0 mg/dLNoSelect Medical Specialty Hospital - [facility] on above: Performed By: #### LIPID, TSH, CMP #### [facility] [address] [place] [address] Dr. Gala JohnsonPROVinod 14(COMP METB)on 73-15-9541Leidnaj [Mass/Vol]4.2 g/dLNormal 3.4-5.0The [facility] HospitalComment on above:Performed By: #### LIPID, TSH, CMP #### [facility] [address] [address] [address] Gala JohnsonAlbumin/Globulin [Mass ratio]1.2 {ratio}NormalThe [facility] HospitalComment on above:Performed By: #### LIPID, TSH, CMP #### [facility] [address] [address] [address] Gala JacobsenP [Catalytic activity/Vol]72 U/FCmkfnq39-789Ohi [facility] HospitalComment on above:Performed By: #### LIPID, TSH, CMP #### [facility] [address] [place] [address] Dr. Gala Culver [Catalytic activity/Vol]30 U/IQrnyze99-36Ibc [facility] HospitalComment on above:Performed By: #### LIPID, TSH, CMP #### [facility] [address] [address] [address] Gala Piña gap [Moles/Vol]11.7 mmol/LNormalThe [facility] Comment on above:Performed By: #### LIPID, TSH, CMP #### [facility] [address] [place] [address] Dr. Gala JohnsonAST [Catalytic activity/Vol]18 U/CDbsjlz17-40Vvx [facility] HospitalComment on above:Performed By: #### LIPID, TSH, CMP #### [facility] [address] [address] [address] Gala JohnsonBilirubin [Mass/Vol]0.7 mg/dLNormal0.2-1.0The [facility] Comment on above:Performed By: #### LIPID, TSH, CMP #### [facility] [address] [address] [address] Gala JohnsonCalcium [Mass/Vol]8.6 mg/dLNormal8.5-10.1The [facility] Comment on above:Performed By: #### LIPID, TSH, CMP #### [facility] [address] [address] [address] Gala JohnsonChloride [Moles/Vol]101 mmol/QJgoeoi41-001Jbf [facility] Comment on above:Performed By: #### LIPID, TSH, CMP #### [facility] [address] [address] [address] Gala JohnsonCO2 [Moles/Vol]29.1 mmol/UBixrid92.0-32.0The [facility] Comment on above:Performed By: #### LIPID, TSH, CMP #### [facility] [address] [address] [address] Gala JohnsonCreatinine [Mass/Vol]0.91 mg/dLNormal0.70-1.30The [facility] HospitalComment on above:Performed By: #### LIPID, TSH, CMP #### [facility] [address] [place] [address] Dr. Gala LopezGFR-AF SIERRA LEONEAN>60Normal>=60The [facility] HospitalComment on above:Performed By: #### LIPID, TSH, CMP #### [facility] [address] [place] [address] Dr. Gala LopezGFR-NON AF SIERRA LEONEAN>60Normal>=60The [facility] HospitalComment on above:Performed By: #### LIPID, TSH, CMP #### [facility] [address] [place] [address] Dr. Gala JohnsonGlobulin (S) [Mass/Vol]3.4 g/dLNormalThe [facility] HospitalComment on above:Performed By: #### LIPID, TSH, CMP #### [facility] [address] [place] [address] Dr. Gala JohnsonGlucose [Mass/Vol]86 mg/vBDencbb66-801Djm [facility] Comment on above:Performed By: #### LIPID, TSH, CMP #### [facility] [address] [place] [address] Dr. Gala JohnsonPotassium [Moles/Vol]3.8 mmol/LNormal3.5-5.1The [facility] Comment on above:Performed By: #### LIPID, TSH, CMP #### [facility] [address] [place] [address] Dr. Gala JohnsonProtein [Mass/Vol]7.6 g/dLNormal6.1-8.2[facility] Comment on above:Performed By: #### LIPID, TSH, CMP #### [facility] [address] [place] [address] Dr. Gala JohnsonSodium [Moles/Vol]138 mmol/UWgxqwc897-127SywUniversity Hospitals Geneva Medical Center Comment on above:Performed By: #### LIPID, TSH, CMP #### [facility] [address] [place] [address] Dr. Gala JohnsonUrea nitrogen [Mass/Vol]13.0 mg/dLNormal7.0-18.0[facility] Medical CenterComment on above:Performed By: #### LIPID, TSH, CMP #### [facility] [address] [place] [address] Dr. Gala Gomez nitrogen/Creatinine [Mass ratio]14.3 mg/mgNormalThMetroHealth Main Campus Medical CenterComment on above:Performed By: #### LIPID, TSH, CMP #### [facility] [address] [place] [address] Dr. Gala Bee 94-71-0537NQN3.610 uIU/mLNormal0.470-4.680[facility] Medical CenterComment on above:Performed By: #### LIPID, TSH, CMP #### [facility] [address] [place] [address] Dr. Gala Hernandez Toledo HospitalComment on above: Result Comment: <0.34 UIU/ml HYPERTHYROID 0.34-5.60 UIU/ml EUTHYROID >5.60 UIU/ml HYPOTHYROIDPerformed By: #### LIPID, TSH, CMP #### [facility] [address] [place] [address] Dr. Gala Mojica RANDOM W/MICROSCOPICon 37-64-3358ESJZSFOGTKDG SEENrmalNONE SEENUniversity Hospitals Geneva Medical CenterComment on above:Performed By: #### UAMIC #### [facility] [address] [address] [address] Gala JohnsonBilirubin Ql (U)NegativeNormalNEGTriHealth Bethesda North Hospital Comment on above:Performed By: #### UAMIC #### [facility] [address] [address] [address] Gala JohnsonCASTESSIE SEENNormalNONE SEENUniversity Hospitals Geneva Medical CenterComment on above:Performed By: #### UAMIC #### [facility] [address] [address] [address] Gala JohnsonClarity (U)CLEARNormalCLEARUniversity Hospitals Geneva Medical CenterComment on above: Performed By: #### UAMIC #### [facility] [address] [address] [address] Gala JohnsonColor (U)LT. YELLOWNormalYELLOWUniversity Hospitals Geneva Medical CenterComment on above:Performed By: #### UAMIC #### [facility] [address] [place] [address] Dr. Gala JohnsonCrystals LM Nom (Urine sed)NONE SEENNormalNONE SEENUniversity Hospitals Geneva Medical CenterComment on above:Performed By: #### UAMIC #### [facility] [address] [place] [address] Dr. Gala Cariaslial cells LM Ql (Urine sed)NONE SEENNormalNONE SEEN /RARE [facility] CenterComformerly [facility] on above:Performed By: #### UAMIC #### [facility] [address] [address] [address] Gala JohnsonGlucose Ql (U)NegativeNormalNEGATIVEUniversity Hospitals Geneva Medical CenterComment on above:Performed By: #### UAMIC #### [facility] [address] [place] [address] Dr. Gala JohnsonHemoglobin Ql (U)NegativeNormalNEGATIVEUniversity Hospitals Geneva Medical Center Comment on above:Performed By: #### UAMIC #### [facility] [address] [place] [address] Dr. Gala JohnsonKetones Ql (U)NegativeNormalNEGATIVEThe Nakul HospitalComment on above:Performed By: #### UAMIC #### [facility] [address] [address] [address] Gala JohnsonLEUKOCYTESNegativeNormalNEGATIVEThe [facility] HospitalComment on above:Performed By: #### UAMIC #### [facility] [address] [address] [address] Gala JohnsonMUCOUSNONE SEENNormalNONE SEENUniversity Hospitals Geneva Medical CenterComment on above:Performed By: #### UAMIC #### [facility] [address] [place] [address] Dr. Gala Ngotrite Ql (U)NegativeNormalNEGATIVEThe [facility] HospitalComment on above:Performed By: #### UAMIC #### [facility] [address] [place] [address] Dr. Gala JohnsonpH (U)6.5 [pH]Normal5-9The [facility] HospitalComment on above: Performed By: #### UAMIC #### [facility] [address] [place] [address] Dr. Gala JohnsonRBCNONE SEENAbnormal0-2The [facility] HospitalComment on above: Performed By: #### UAMIC #### [facility] [address] [place] [address] Dr. Gala JohnsonSPEC GRAVITY1.893Rdiyvo2.005-<=1.025The [facility] HospitalComment on above:Performed By: #### UAMIC #### [facility] [address] [place] [address] Dr. Gala JohnsonUA PROTEINNegativeNormalNEGATIVE/ TRACEThe [facility] Comment on above:Performed By: #### UAMIC #### [facility] [address] [place] [address] Dr. Gala Hardingbilinogen Qn (U)0.2 {Tarun'U}/dLNormal0.2 - 1.0The [facility] HospitalComment on above:Performed By: #### UAMIC #### [facility] [address] [place] [address] Dr. Gala JohnsonWBCNONE SEENNormalNONE SEENUniversity Hospitals Geneva Medical CenterComment on above: Performed By: #### UAMIC #### [facility] [address] [place], [place] [address] Dr. Gala JohnsonCovid-19 PCR ([facility])on 78-55-7925WQXO-CoV-2 (COVID-19) RNA ABBY+probe Ql (Unsp spec)Not detectedNormalNOT DETECTEDThe [facility] Comment on above:Result Comment: When diagnostic testing is negative, the possibility of a false negative should be considered in the context of a patient's recent exposures and the presence of clinical signs and symptoms consistent with SARS-CoV-2. This test is not yet approved or cleared by the [place] Food and Drug Administration (FDA). This test was developed by [employer], [place], [place]. The performance characteristics of this test were validated by [facility]. The results are not intended to be used as the sole means for clinical diagnosis or patient management decisions. [facility] is authorized under Clinical Laboratory [...] for this test is supported by the Nurse Receptionist of Health and Human Service's declaration that [...] be used).Performed By: #### CVDTB #### [facility] [address] [place] [id number] Gala Johnson Vital Signs Date TimeVital SignValuePerforming EugwjgqecQblhgifn52-42-8484 15:12-0400Body heoqjc784.72 cmBenjamin Ball DO Work Phone: [facility]10-22-2025 15:12-0400 Body mass index (BMI) [Ratio]30.4 kg/s2Dbgdkguj Ball DO Work Phone: [phone] [place], [place] 5885410-22-2025 15:12-0400 Body xvptwo73.77 kgBenjamin Ball DO Work Phone: [phone] [place], [place] 5885410-22-2025 15:12-0400 Diastolic blood licojdnh92 mm[Hg]Luther Ball DO Work Phone: 1([phone] [place], [place] 5885410-22-2025 15:12-0400 Heart rate87 /minBenjamin Ball DO Work Phone: 1([phone] [place], [place] 5885410-22-2025 15:12-0400 Respiratory rate12 /minBenjamin Ball DO Work Phone: 1([phone] [place], [place] 5885410-22-2025 15:12-0400 Systolic blood oicfxxmz846 mm[Hg]Luther Ball DO Work Phone: 1(419)[address] [place], [place] 5885409-23-2025 14:00-0400 Body .72 cmBenjamin Ball DO Work Phone: 1([phone] [place], [place] 5885409-23-2025 14:00-0400 Body mass index (BMI) [Ratio]29.8 kg/v1Qjghqwoa Ball DO Work Phone: 1(419)[address] [place], [place] 5885409-23-2025 14:00-0400 Body .01 kgBenjamin Ball DO Work Phone: 1(419)[address] [place], [place] 5885409-23-2025 14:00-0400 Diastolic blood mhbwiunz66 mm[Hg]Luther Ball DO Work Phone: 1(419)[address] [place], [place] 5885409-23-2025 14:00-0400 Heart onuu915 /minBenjamin Ball DO Work Phone: 1(419)[address] [place], [place] 5885409-23-2025 14:00-0400 Respiratory rate12 /minBenjamin Ball DO Work Phone: 1(419)[address] [place], [place] 5885409-23-2025 14:00-0400 Systolic blood tcawrucj208 mm[Hg]Luther Morris DO Work Phone: [facility]07-14-2025 12:52-0400 Body .7 Dustin Pierce MD Work Phone: [facility]07-14-2025 12:52-0400Body mass index (BMI) [Ratio]29.19 kg/m2Jeana Pierce MD Work Phone: [facility]07-14-2025 12:52-0400Body tiirmf31.09 kgJeana Pierce MD Work Phone: [facility]05-20-2025 12:27-0400Body dxrkak778.7 Dustin Pierce MD Work Phone: [facility]05-20-2025 12:27-0400Body mass index (BMI) [Ratio]29.19 kg/m2Jeana Pierce MD Work Phone: [facility]05-20-2025 12:27-0400Body cvxish85.09 kgJeana Pierce MD Work Phone: [facility]04-22-2025 14:09-0400Body .7 Dustin Pierce MD Work Phone: [facility]04-22-2025 14:09-0400Body mass index (BMI) [Ratio]29.19 kg/m2Jeana Pierce MD Work Phone: [facility]04-22-2025 14:09-0400Body .09 kgJeana Pierce MD Work Phone: [facility]03-24-2025 10:55-0400Body fkezst291.7 Dustin Pierce MD Work Phone: [facility]03-24-2025 10:55-0400Body mass index (BMI) [Ratio]29.19 kg/m2Jeana Pierce MD Work Phone: [facility]03-24-2025 10:55-0400Body bnosma45.09 kgAnil Kari NICOLE Work Phone: [facility]11-05-2024 13:34-0500Body .3 cmAnil Kari NICOLE Work Phone: [facility]11-05-2024 13:34-0500Body mass index (BMI) [Ratio]28.65 kg/m2Anil Kari NICOLE Work Phone: [facility]11-05-2024 13:34-0500Body ecjqnl66 kgAnil Kari NICOLE Work Phone: [facility]07-29-2024 10:31-0400Body sijuub841.7 cmBrad Hanna MD Work Phone: cSt. [facility] HospitalLofkun68-09-2680 10:31-0400Body mass index (BMI) [Ratio]28.59 kg/v1DpzerBrad Hanna MD Work Phone: c[facility] HospitalWpmtdn75-24-8803 10:31-0400Body temperature 98.29 [degF]Brad Hanna MD Work Phone: c[facility] HospitalReykfb32-66-1109 10:31-0400Body imlxky02.28 kgBrad Hanna MD Work Phone: c[facility] HospitalHxysmn00-93-3952 10:31-0400Diastolic blood bsgiqmux58 mm[Hg]Brad Hanna MD Work Phone: c[facility] HospitalOjeytv97-28-7673 10:31-0400Heart rate75 /min Brad Hanna MD Work Phone: c[facility] HospitalNputuy40-94-9347 10:31-0400Systolic blood mm[Hg]Brad Hanna MD Work Phone: cSt. [facility] HospitalRoxosh91-08-5975 10:06-0400Body cofdfr546.7 cmLuther Ann MD Work Phone: [facility]05-28-2024 10:06-0400Body mass index (BMI) [Ratio]27.83 kg/i8WmmstbjrLuther Ann MD Work Phone: [phone]05-28-2024 10:06-0400Body temperature 97.59 [degF]Luther Ann MD Work Phone: [phone]05-28-2024 10:06-0400Body zvscno18.01 kgBevikram Ann MD Work Phone: [facility]05-28-2024 10:06-0400Diastolic blood iqcfjowq39 mm[Hg]Luther Ann MD Work Phone: [facility]05-28-2024 10:06-0400Heart rate84 /min Luther Ann MD Work Phone: [phone]05-28-2024 10:06-0400Systolic blood jbltozqf905 mm[Hg]Luther Ann MD Work Phone: [phone]08-11-2023 14:15-0400Body kshoka024.72 cmBenjamin Ball Other [employer] Other 08-11-2023 14:15-0400Body mass index (BMI) [Ratio] 27.52 kg/h2Lqejowtz Ball Other [employer] Other 08-11-2023 14:15-0400Body .1 kgBenjamin Ball Other [employer] Other 08-11-2023 14:15-0400Diastolic blood cctoxyis98 mm[Hg] Luther Morris Other [employer] Other 08-11-2023 14:15-0400Respiratory rate12 /minBenjamin Ball Other [employer] Other 08-11-2023 14:15-0400Systolic blood ggarhcua749 mm[Hg] Luther Morris Other [facility] [employer] Other Encounters Encounter DateEncounter TypeCare ProviderFacilityStart: 12-05-2024 End: 08-59-7002jnjkskbvqrKfvnmlt R NILLFacility: [place]walkStart: 12-05-2024 End: 44-37-9817Xotwfml encounter procedureMichael R NILL [phone]-EkipkHenry [facility] [place] Start: 12-03-2024 End: 60-34-9227vfszuwpooeVcqnnqvc Ball DO Work Phone: -[facility] ClinicStart: 12-03-2024 End: 63-84-5685Lvwjnlq encounter procedureBentoyin Morris DO-[facility] Work Phone: Start: 12-03-2024 End: 79-54-3275Hfrymqo encounter statusBentoyin Morris [facility] Townshiptart: 70-58-4064asbuqcwkyyGccsgpq NILLFacility: Nisreentart: 72-42-2756cptoajwvygVbyrrps NILLFacility:[facility] HospitalthereseueStart: 67-45-3429Poq-patient / Non-visitBentoyin Morris DO-[facility] Work Phone: Start: 11-04-2024 End: 67-80-2512igflhwmnvxKdxkduzv Ball DO Work Phone: [facility] Work Phone: Start: 11-04-2024 End: 69-18-6268Anyytbq encounter procedureBentoyin Morris DO-[facility] Work Phone: Start: 10-10-2024 End: 25-81-3229hppprqpmvaOpmdtwkb Ball DO Work Phone: [facility] Work Phone: Start: 10-10-2024 End: 56-19-8663Enncmcyb Jalil David -[facility] [address] Work Phone: start: 09-04-2024 End: 63-52-1576OunmhfggbZeqglojv Wright REPRODUCER Work Phone: noms FB PTComment on above:Left hip pain (Primary Dx); Femoroacetabular impingement of left hip; Articular cartilage disorder of left hipStart: 09-02-2024 End: 11-91-0978IffjalwgbXzhzux Jeydesirae PTANOMS FB PTComment on above:Left hip pain (Primary Dx); Femoroacetabular impingement of left hip; Articular cartilage disorder of left hipStart: 08-29-2024 End: 34-10-1708RkqxxlufmJomzuxpp Lee REPRODUCER Work Phone: noms FB PTComment on above:Left hip pain (Primary Dx); Femoroacetabular impingement of left hip; Articular cartilage disorder of left hipStart: 08-25-2024 End: 74-85-6161Pqhfqp outpatient visit 15 minutesAnil Gwen Pierce MD Work Phone: [facility] Spine SurgeonsComment on above:Femoroacetabular impingement of left hip (Primary Dx) Start: 08-25-2024 End: 37-43-9010nntxhiyjheOOND Gwen PIERCESCCI [facility] PPGStart: 07-29-2024 End: 96-64-2470KosalnzdhRkldfkee Lee REPRODUCER Work Phone: noms FB PTComment on above:Left hip pain (Primary Dx); Femoroacetabular impingement of left hip; Articular cartilage disorder of left hipStart: 07-29-2024 End: 22-58-8631Gofmzj Onur Lee REPRODUCER Work Phone: noms FB PTStart: 07-29-2024 End: 87-40-8316Vwiopx Onur Lee REPRODUCER Work Phone: noms FB PTStart: 07-22-2024 End: 07-89-7445YkpvpbpaiTjzhepjo Wright REPRODUCER Work Phone: NOMS FB PTComment on above:Left hip pain (Primary Dx); Femoroacetabular impingement of left hip; Articular cartilage disorder of left hipStart: 07-22-2024 End: 95-33-6132Xahvae Onur Lee REPRODUCER Work Phone: NOMS FB PTStart: 07-22-2024 End: 24-02-1390Jrblca Onur Lee REPRODUCER Work Phone: NOMS FB PTStart: 07-18-2024 End: 13-44-6935Tmzoda flowspreetiKyian Savage PT Work Phone: NOMS FB PTStart: 07-18-2024 End: 19-65-1148Itujuy flowspreetiKyian Willis Hussein PT Work Phone: NOMS FB PTStart: 07-18-2024 End: 32-26-4449PiexyxvngCayy J Hussein PT Work Phone: NOMS FB PTComment on above:Left hip pain (Primary Dx); Femoroacetabular impingement of left hip; Articular cartilage disorder of left hipStart: 07-10-2024 End: 78-52-3356TjegzlvirWtyqrmvk Wright REPRODUCER Work Phone: NOMS FB PTComment on above:Left hip pain (Primary Dx); Femoroacetabular impingement of left hip; Articular cartilage disorder of left hipStart: 07-10-2024 End: 27-35-3526Cjszql Onur Lee REPRODUCER Work Phone: NOMS FB PTStart: 07-10-2024 End: 56-54-4094Oltfyh Onur Lee REPRODUCER Work Phone: NOMS FB PTStart: 07-01-2024 End: 76-07-5470Xtfnxu flowspreetiKyian Savage PT Work Phone: NOMS FB PTStart: 07-01-2024 End: 32-27-2179Tqzceu flowsheetKyian J Hussein PT Work Phone: NOTJ FB PTStart: 07-01-2024 End: 68-62-8745Vzabpo follow up visit related to original pxAnil Gwen Kari NICOLE Work Phone: [facility] Spine SurgeonsComment on above:Postoperative visit (Primary Dx)Start: 07-01-2024 End: 03-34-9421KhicztltrZseq Boticca Hussein PT Work Phone: NOGU FB PTComment on above:Left hip pain (Primary Dx); Femoroacetabular impingement of left hip; Articular cartilage disorder of left hipStart: 06-27-2024 End: 38-44-7416Tpvowt iPerceptionspreetiKyle Boticca Hussein PT Work Phone: NOHJ FB PTStart: 06-27-2024 End: 79-18-4309Zwxmvx flowsUrbanFarmersle Boticca Hussein PT Work Phone: NOKY FB PTStart: 06-27-2024 End: 13-22-5008IgsrzqxrzQhlg Localsensorgs PT Work Phone: NOMS FB PTComment on above:Left hip pain (Primary Dx); Femoroacetabular impingement of left hip; Articular cartilage disorder of left hipStart: 06-24-2024 End: 48-64-4925OdrnjjuvqPtrxqc Tattersall PTANOMS FB PTComment on above:Left hip pain (Primary Dx); Femoroacetabular impingement of left hip; Articular cartilage disorder of left hipStart: 06-24-2024 End: 84-05-6066Mxwjub flowsheetMariah Tattersall PTANOMS FB PTStart: 06-24-2024 End: 64-37-6814Wswrpl flowsheetMariah Tattersall PTANOMS FB PTStart: 06-20-2024 End: 62-05-6770Ntbnqf flowsheetKyle J Hussein PT Work Phone: NOMS FB PTStart: 06-20-2024 End: 17-35-6636Stxknu flowsheetKyian J Hussein PT Work Phone: NOMS FB PTStart: 06-20-2024 End: 79-46-1858YxwnjhrcwGmed Alba Hussein PT Work Phone: NOMS FB PTComment on above:Left hip pain (Primary Dx); Femoroacetabular impingement of left hip; Articular cartilage disorder of left hipStart: 06-17-2024 End: 11-17-1596YuvdfeacuQivfle Tatjrall PTANOMS FB PTComment on above:Left hip pain (Primary Dx); Femoroacetabular impingement of left hip; Articular cartilage disorder of left hipStart: 06-17-2024 End: 50-02-5478Edkzke flowsShahnaz Tattersall PTANOMS FB PTStart: 06-17-2024 End: 93-72-8368Vncgzf flowsheetLucy Tattersall PTANOMS FB PTStart: 06-13-2024 End: 42-95-4647Rdqzvs flowsheetKyle Alba Hussein PT Work Phone: NOMS FB PTStart: 06-13-2024 End: 67-11-7331Qudqzt flowsheetKyian Willis Hussein PT Work Phone: NOMS FB PTStart: 06-13-2024 End: 25-01-2921IfhdbekkcYwoi Alba Hussein PT Work Phone: NOMS FB PTComment on above:Left hip pain (Primary Dx); Femoroacetabular impingement of left hip; Articular cartilage disorder of left hipStart: 06-03-2024 End: 90-72-5919Buqdxs flowsheetKyle J Hussein PT Work Phone: NOMS FB PTStart: 06-03-2024 End: 42-55-3106Eogund flowsheetKyle J Hussein PT Work Phone: NOMS FB PTStart: 06-03-2024 End: 12-38-0103Xsvnbc follow up visit related to original pxJeana Pierce MD Work Phone: [facility] Sp[facility] SurgeonsComment on above:Left hip pain (Primary Dx)Start: 06-03-2024 End: 75-12-6683OmxfzxmegeRyss J Spriggs PT Work Phone: NOWX FB PTComment on above:Left hip pain (Primary Dx); Femoroacetabular impingement of left hip; Articular cartilage disorder of left hipStart: 05-21-2024 End: 25-74-1610Tijmru OnlyLisa Brooklyn [facility] Spine SurgeonsComment on above:Femoroacetabular impingement of left hip (Primary Dx); 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Start: 05-21-2024 End: 05-95-8080Wssobszmdx and management of inpatientJEANA PIERCEProMedica Randolph HospitalStart: 05-15-2024 End: 87-98-8964Qqfsub Pj Pierce MD Work Phone: [facility] Sp[facility] SurgeonsComment on above:Femoroacetabular impingement of left hip (Primary Dx) Start: 05-07-2024 End: 10-89-2313Dmmntnsrp to establishmentMetro Pat Phone Call Provider 1 Eugene [facility] Hospitaltart: 05-07-2024 End: 81-76-8277Lwzuznwcxv and management of inpatientBENJAMIN E BALLProMedica Randolph HospitalStart: 05-05-2024 End: 62-81-0909Thiwzw outpatient visit 25 minutesJeana Pierce MD Work Phone: [facility] Spine SurgeonsComment on above:Femoroacetabular impingement of left hip (Primary Dx) Start: 05-05-2024 End: 68-52-1787vqpycwdnlsGKRC K GUPTAProMedica [facility] PPGStart: 03-07-2024 End: 36-44-3513uhzlrnagskBLUK K GUPTAProMedica [facility] HospitalStart: 01-23-2024 End: 45-27-9559Cvnqpwpcg encounterJeana Pierce MD Work Phone: [facility] SurgeonsStart: 01-21-2024 End: 76-24-4557xjsyjckuoxBTUO [facility] Hospitaltart: 12-18-2023 End: 05-72-0213Soddca outpatient new 30 minutesJeana Pierce MD Work Phone: [facility] Sp[facility] SurgeonsComment on above:Femoroacetabular impingement of left hip (Primary Dx); Left hip pain; Femoral acetabular impingement; Pain of left hipStart: 20-54-2132Bzyvjvy encounter statusBenkarinaregan Morris DO Work Phone: [facility] Hospitaltart: 12-18-2023 End: 81-34-2376rnowqvykxmUHGO [facility] PPGStart: 10-26-2023 End: 73-81-0177Zdbekj Affaredelgiorno REPRODUCER Work Phone: NONW FB PTStart: 10-26-2023 End: 61-83-3550Ezyemo Affaredelgiorno REPRODUCER Work Phone: NOHQ FB PTStart: 10-26-2023 End: 79-77-0870awnxajwnrkSojmbmib Wright REPRODUCER Work Phone: NOSG FB PTComment on above:Right hip pain (Primary Dx); Femoral acetabular impingementStart: 10-23-2023 End: 25-69-2807kjyakuvxhwBhhago Tattersall PTANOMS FB PTComment on above:Right hip pain (Primary Dx); Femoral acetabular impingementStart: 10-23-2023 End: 08-24-3230Bzuwcx flowsheetMariah Tattersall PTANOMS FB PTStart: 10-23-2023 End: 27-13-3088Gnwjgu flowsheetMariah Tattersall PTANOMS FB PTStart: 10-19-2023 End: 75-56-2819yrtojzzomuSunafxtk Wright REPRODUCER Work Phone: NOQX FB PTComment on above:Right hip pain (Primary Dx); Femoral acetabular impingementStart: 10-18-2023 End: 27-34-4350iicurdalvfOgfxebeg Wright REPRODUCER Work Phone: NOWY FB PTComment on above:Right hip pain (Primary Dx); Femoral acetabular impingementStart: 10-18-2023 End: 00-30-9811Micdwg Onur Lee REPRODUCER Work Phone: NOOV FB PTStart: 10-18-2023 End: 21-56-9438Qrvmqe Onur Lee REPRODUCER Work Phone: NOGX FB PTStart: 10-12-2023 End: 26-63-9046mjmzhtjngjJdin J Hussein PT Work Phone: noms FB PTComment on above:Right hip pain (Primary Dx); Femoral acetabular impingementStart: 10-11-2023 End: 81-19-1113ljysvdyligLxry J Hussein PT Work Phone: NOVJ FB PTComment on above:Right hip pain (Primary Dx); Femoral acetabular impingementStart: 10-11-2023 End: 45-13-3940Dwguod flowsheetKyle J Hussein PT Work Phone: NOSO FB PTStart: 10-11-2023 End: 13-80-3410Qaedce flowsheetKyle J Hussein PT Work Phone: NOAJ FB PTStart: 10-05-2023 End: 96-43-4590svgjzuhvbhYxnq J Hussein PT Work Phone: NOMS FB PTComment on above:Right hip pain (Primary Dx); Femoral acetabular impingementStart: 10-04-2023 End: 14-95-8240gxgyrkpvieLiwb J Hussein PT Work Phone: NOMS FB PTComment on above:Right hip pain (Primary Dx); Femoral acetabular impingementStart: 10-04-2023 End: 61-45-2028Cyuhqq flowsheetKyle J Hussein PT Work Phone: noms FB PTStart: 10-04-2023 End: 89-49-0139Qfesfj flowsheetKyle J Hussein PT Work Phone: noms FB PTStart: 09-10-2023 End: 51-08-0173mutqwnobutVVVIT KRPATAFacility:[facility]althtart: 09-10-2023 End: 67-68-1508Owwsniv encounter procedureBrad Hanna MD Work Phone: General SurgeryComment on above:Pain in left hip (Primary Dx)Start: 08-15-2023 End: 41-76-3691fzaljytubuWJOHKGIY MILLERFacility:[facility]althtart: 08-15-2023 End: 86-66-2431Haaceazkln hospital visit by physicianCommunity [facility] Christopher Work Phone: RadiologyComment on above:Left inguinal pain [R10.32] Start: 13-17-0765Wfksxksfr encounterAndrew CayetanoadiologyComment on above: AppointmentLeft inguinal pain (Primary Dx)Start: 07-10-2023 End: 71-79-1384Aaiqbkz encounter procedureLuther Ann MD Work Phone: General SurgeryComment on above:Left inguinal pain (Primary Dx)Start: 07-10-2023 End: 15-92-3509kgfpqdlqktJJZXZOHW T. MILLERFacility:[facility] Start: 09-29-2022 End: 58-06-8100xvrowdvtdsFjaszyfe Ball Other [facility] [employer] Other Start: 83-02-1921Wgogyhmsd encounterBentoyin BallBROOKG [facility] ClinicStart: 09-25-2022 End: 18-11-9479kbnkoshwzmJimcllkg Ball Other [facility]ross[facility] [employer] Other start: 12-20-0620Pmabmvfvg for general adult medical examination without abnormal findingsLuther Morris Medical ClinicStart: 00-39-8770Kwinyovju encounterBevikram [facility] Medical ClinicStart: 09-22-2022 End: 38-49-2545piezoiuoxxUpdprzyr Ball Other rt [employer] Other Start: 82-96-1643Btutqexmz for general adult medical examination without abnormal findingsLuther Morris Medical ClinicStart: 20-91-1827Elqxdsev preventive med est patient 40-64yrsBevikram [facility] Medical ClinicStart: 12-16-2021 End: 83-52-6890cjbzqjqgrbAJ BENJAMIN BALLFacility:H6Owsaw: 06-17-2021 End: 77-09-6979xaeryyilcgSP BENJAMIN BALLFacility:B1Tzrhb: 40-67-5850Kuwvamqbr for general adult medical examination without abnormal findingsDR LUTHER MORRIS [facility] Hospitaltart: 06-07-2021 End: 86-59-0914ucwdhqcvaeUK BENJAMIN BALLFacility:S7Ipgsj: 06-07-2021 End: 72-05-7602Hniuetzqh for general adult medical examination without abnormal findingsDR LUTHER MORRISFacility:L2Rkbhn: 02-15-2021 End: 71-41-3110bxdbsjemsyXH BENJAMIN BALLFacility:P8Tqjix: 03-28-3332xvjjmlmulk DR LUTHER MORRISFacility:H1 Procedures DateProcedureProcedure DetailPerforming ClinicianStart: 23-47-5696Cibtol-up visitFollow-upANIL K GUPTAStart: 22-08-2355Jm compl joint r-t w/image documentationBevikram Ann MD Work Phone: Start: 11-78-9570IoyjxdjtmvbWgymlfi NILL Start: 63-62-1134LgqrcwhjxlqNcggsrud Lee LOIDA Work Phone: Start: 56-47-2076WnuqpkvhqscKrbv Hussein PT Work Phone: Start: 23-40-3246JAO screeningDR LUTHER Stanton on above:Performed By: #### PSASC #### [facility] [address] [place] [address] Dr. Gala JohnsonAcetabular labrum tear (disorder)Oren RONDONL Plan of Treatment DateCare ActivityDetailAuthorStart: 42-47-6641Dxugxlaip for malignant neoplasm of colonNOMS HealthcareStart: 38-58-2208Igbrkiqsj for malignant neoplasm of colonNOMS HealthcareStart: 85-97-2056Yjtmu BMI ScreeningAdult BMI Screening [facility] SystemStart: 24-64-9903Cwexc BMI ScreeningAdult BMI Screening [facility] SystemStart: 22-38-4722Snobcjx ScreeningTobacco Screening [facility] SystemStart: 64-35-6977Ahscn BMI ScreeningAdult BMI Screening [facility] SystemStart: 54-21-5642Uwolw BMI ScreeningAdult BMI Screening [facility] SystemStart: 28-86-2512Xrszkfa ScreeningTobacco Screening [facility] SystemStart: 82-30-5619Rbzamah ScreeningTobacco Screening [facility] SystemStart: 21-53-8536Cfqko BMI ScreeningAdult BMI Screening [facility] SystemStart: 73-88-5074Ownniuf ScreeningTobacco Screening [facility] SystemStart: 67-23-8722Kylgg BMI ScreeningAdult BMI Screening [facility] SystemStart: 94-52-6938Fpqbd BMI ScreeningAdult BMI Screening [facility] SystemStart: 77-44-5997Ypehezxsi vaccinationProShelby Memorial Hospitalca [facility] SystemStart: 10-06-2024 End: 93-37-8502Rkmfnkp encounter bczoipwmo63/25/2025 1:40 PM EDT Office Visit [facility] [address] [place] [address] Jeana Pierce MD [address] [place] [address] [facility] SurgeonsStart: 09-04-2024 End: 37-79-8644kurdhqhdks52/24/2025 5:00 PM EDT Treatment [facility] [address] [place] [phone] Alejandra Lee, REPRODUCER [address] [place] [address] NOMS FB PTStart: 09-02-2024 End: 16-11-1829acjloxkcam13/22/2025 5:00 PM EDT Treatment [facility] [address] [place] [phone] Lucy Fay PTANOMS FB PTStart: 08-25-2024 End: 82-59-8863Dvhzbay encounter htxyjrxmn47/14/2025 12:55 PM EDT Office Visit [facility] [address] [facility] [place] [address] Jeana Pierce MD [address] [place] [address] [facility] SurgeonsStart: 07-29-2024 End: 09-85-2591yvrtrjqlmi65/17/2025 5:30 PM EDT Treatment [facility] [address] [place] [phone] Alejandra Lee, REPRODUCER [address] [place] [address] Lizett DONAHUE PT Comment on above:ArrivedStart: 07-22-2024 End: 99-42-3018qiitusbmpx95/10/2025 5:30 PM EDT Treatment [facility] [address] [place] [phone] Alejandra Lee, REPRODUCER [address] [place] [address] NOMS FB PTStart: 07-18-2024 End: 61-90-8108fhpfymrbzd07/06/2025 1:30 PM EDT Treatment [facility] [address] [place] [phone] Alejandra Lee, REPRODUCER [address] [place] [address] NOMS FB PTStart: 07-10-2024 End: 41-03-7456trrgaxvirzDQYL FB PTComment on above:Left hip pain (Primary Dx) Start: 07-08-2024 End: 45-45-5055soqzdmsqgyYLSU FB PTStart: 07-04-2024 End: 37-29-7547hsmcgnkwhx31/23/2025 1:30 PM EDT Treatment [facility] [address] [place] [id number] Alejandra Lee, REPRODUCER [address] [place] [address] [facility] FB PTStart: 07-01-2024 End: 04-23-8853Khrysrb encounter xkuasljti67/20/2025 12:30 PM EDT Office Visit [facility] [address] [place] [phone] Jeana Pierce MD [address] [place] [phone] [facility]: 07-01-2024 End: 10-06-8454gzqcwipynfZHTF FB PTComment on above:ArrivedStart: 06-27-2024 End: 25-94-4187pqhxjtlcgd93/16/2025 1:00 PM EDT Treatment [facility] PT [address] [place] [phone] Micheal Savage, PT [address] [place] [address] NOMS FB PTStart: 06-24-2024 End: 68-57-5849prvppexjax84/13/2025 5:00 PM EDT Treatment [facility] FB PT [address] [place] [phone] Lucy Fay PTANOMS FB PTStart: 06-20-2024 End: 84-90-4456uheawiztpyCRKD FB PTComment on above:ArrivedStart: 06-17-2024 End: 41-68-2772xtzaqablmg80/06/2025 5:00 PM EDT Treatment [facility] FB PT [address] [place] [phone] Lucy Fay PTANOMS FB PTStart: 06-13-2024 End: 73-63-3997bkzwrqijxe85/02/2025 1:00 PM EDT Treatment [facility] FB PT [address] [place] [phone] Micheal Savage, PT [address] [place] [address] NOMS FB PTStart: 06-03-2024 End: 38-61-8614Ttyckbr encounter gzdxxfkyx88/22/2025 1:45 PM EDT Office Visit [facility] [address] [place] [phone] Jeana Pierce MD [address] [place] [phone] [facility] SurgeonsStart: 06-03-2024 End: 64-57-4387eqnvdtfhle99/22/2025 9:00 AM EDT Evaluation [facility] PT [address] [place] [phone] Micheal Savage, PT [address] [place] [address] ArrivedNOMS FB PT Comment on above:ArrivedStart: 05-21-2024 End: 42-55-3772Sbwlvesto to same day surgery yknjky4705/21/2024 11:45 AM EDT - 05/21/2024 2:15 PM EDT Surgery [facility] Surgery [address] [place], [place] [phone] Jeana Pierce MD [address] [place] [address] ARTHROSCOPIC FEMOROPLASTY HIP [26122 (CPT )][facility] SurgeryComment on above:ARTHROSCOPIC FEMOROPLASTY HIP [74119 (CPT )] Start: 05-21-2024 End: 67-67-4620Mnvdrympmjy hip w/femoroplastyARTHROSCOPIC FEMOROPLASTY HIP 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 05/21/2024 11:45 AM [facility]: 05-21-2024 End: 99-83-8338Zirhqijgrpl hip w/labral repairARTHROSCOPIC REPAIR LABRUM HIP 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 [place], [place] [address] Jeana Pierce MD [address] [place] [address] [facility] SurgeryStart: 05-07-2024 End: 20-53-9773Zkuvzjdyp to edcemhphsdvel58/26/2025 9:30 AM EDT Support Visit [facility] [id number] [address]NkfAjqqnu [facility] Start: 12-18-2023 End: 92-67-4564Wsfrpsigvjq MR/CT inj arthrogram hip left with guidance Fluoroscopy MR/CT inj arthrogram hip left with guidance Imaging Routine Femoral acetabular impingement Expected: 12/18/2023, Expires: 12/17/2024[facility] Work Phone: Comment on above:Expected: 12/18/2023, Expires: 12/17/2024Start: 12-18-2023 End: 28-31-6919IG Hip - left ArthrogramMR arthrogram hip left with contrast Imaging Routine Femoral acetabular impingement Pain of left hip Expected: 12/18/2023, Expires: 12/17/2024ProC[facility] SystemComment on above:Expected: 12/18/2023, Expires: 12/17/2024Start: 10-26-2023 End: 39-59-9990cebwvqgvqhRTID FB PTComment on above:ArrivedStart: 10-23-2023 End: 82-70-7079iytnlwjufh79/10/2024 3:00 PM EDT Treatment [facility] PT [address] [place] [phone] Alejandra Lee, REPRODUCER [address] [place] [address] NOMS FB PTStart: 10-19-2023 End: 09-78-2018difnorsddb05/06/2024 1:30 PM EDT Treatment [facility] ROW[facility] PT [address] [place] [phone] Alejandra Lee, REPRODUCER [address] [place] [address] NOMS FB PTStart: 10-18-2023 End: 38-48-6427wcopugajinICEX FB PTStart: 13-70-1747VHBAC-19 Vaccine ( season)COVID-19 Vaccine ( season)[facility] SystemStart: 33-58-8086Qktcqdgkm vaccinationCleveland Clinic Marymount Hospitaltart: 10-12-2023 End: 29-66-5030kyfedyalst53/30/2024 1:30 PM EDT Treatment [facility] FB PT [address] [place] [phone] Micheal Savage, PT [address] [place] [address] NOMS FB PTStart: 10-11-2023 End: 08-42-0908tzvzscolvg30/29/2024 5:00 PM EDT Treatment [facility] FB PT [address] [place] [phone] Micheal Savage, PT [address] [place] [address] NOMS FB PTStart: 10-05-2023 End: 41-83-9846tmkdwmbheb68/23/2024 1:30 PM EDT Treatment [facility] FB PT [address] [place] [phone] Micheal Savage, PT [address] [place] [address] NOMS FB PTStart: 10-04-2023 End: 80-88-4463uwihpkewwe49/22/2024 5:30 PM EDT Treatment [facility] FB PT [address] [place] [phone] Micheal Savage, PT [address] [place] [address] ArrivedNOMS FB PT Comment on above:ArrivedStart: 09-10-2023 End: 82-27-9675Ejocuud encounter wnjgaiycw38/29/2024 10:30 AM EDT Office Visit General Surgery [address] [address] Brad Hanna MD [address] [place] [address] groin painGeneral SurgeryComment on above:groin painStart: 08-15-2023 End: 24-72-7089Ahdwwre encounter rlfvrxvyp18/03/2024 1:35 PM EDT Appointment Radiology [address] [place], [place] [address] NEW ORDER FORTHCOMINGRadiologyComment on above:NEW ORDER FORTHCOMINGStart: 08-10-2023 End: 59-17-6334UW Pelvis limitedUS [employer] Radiology Routine Left inguinal pain Expected: 08/10/2023, Expires: 08/08/2024[facility] Work Phone: Comment on above:Expected: 08/10/2023, Expires: 08/08/2024Start: 79-11-1199Boelulakxa Health ScreeningBehavioral Health ScreeningCleveland Clinic Marymount Hospitaltart: 23-10-4158Erhjr-19 Vaccine ( season) Covid-19 Vaccine ( season)[facility] Hospitaltart: 16-06-1053Lfdmpesa ScreeningDiabetes ScreeningCleveland Clinic Marymount Hospitaltart: 80-45-2919Fgknlkkyw for malignant neoplasm of colonCleveland Clinic Marymount Hospitaltart: 69-06-1633Czqvl panelLipid ScreeningCleveland Clinic Marymount Hospitaltart: 21-70-5757TTxP,Tdap and Td Vaccines (1 - Tdap) DTaP,Tdap and Td Vaccines (1 - Tdap)[email or web address] Molecular Biometrics SystemStart: 12-09-1995 Hepatitis B Vaccine (1 of 3 - 19+ 3-dose series)Hepatitis B Vaccine (1 of 3 - 19+ 3-dose series)[facility] Hospitaltart: 65-12-8586Dpmkn microalbumin profile DTaP,Tdap,Td Vaccine (1 - Tdap)[facility] Hospitaltart: 72-14-7703Ocgsl BMI Follow Up PlanAdult BMI Follow Up PlanUNC Health Rockinghamtart: 33-79-0037Sexiush ScreeningAnxiety ScreeningCleveland Clinic Marymount Hospitaltart: 52-96-8234Ikbdmzbuog Screening Depression ScreeningCleveland Clinic Marymount Hospitaltart: 71-30-1746Iautxhquy C screening Hepatitis C ScreeningCleveland Clinic Marymount Hospitaltart: 93-71-3839WSS screeningHIV Screening [facility] Hospitaltart: 21-46-8808Hwaknhljac ScreeningDepression Screening [facility]inghamtart: 21-48-9533Kdndpdc ScreeningTobacco Screening [facility]inghamtart: 25-71-3999Qcwinjmem for malignant neoplasm of colonNOCO HealthcareComprehensive metabolic 2000 panel - Serum or Plasma [facility] County HospitalFibrin D-dimer [Presence] in Platelet poor plasma by Latex agglutinationHenry County HospitalUS Heart TransthoracicHenry County Hospital End: 63-79-9757MM Hip - leftUS HIP LEFT Radiology Routine Left inguinal pain 1 Occurrences starting 07/12/2023 until 08/09/2024[facility] Work Phone: Comment on above:1 Occurrences starting 07/12/2023 until 08/09/2024XR Chest 2 ViewsNaval Hospital Jacksonville Immunizations Immunization DateImmunizationNotesCare TrjhiqefJsqftvnp96-23-7929tstzlsx toxoid, reduced diphtheria toxoid, and acellular pertussis vaccine, adsorbedBenkarinamin Ball DO Work Phone: [facility]10-30-2024influenza, injectable, madin billy canine kidney, preservative freeBenjamin Ball DO Work Phone: [facility]10-30-2024influenza, seasonal, injectable, preservative freeKyle Hussein PT Work Phone: [facility] Cancer CenterBkuhiroval29-47-0982ggkzyswfe virus vaccine, unspecified formulationJeana Pierce MD Work Phone: [facility] HospitalOhwter52-37-3240BQIGU-19 mRNA-1273 (Moderna)Luther Morris DO Work Phone: [facility]01-28-2021COVID-19 mRNA-1273 (Moderna)Luther Morris DO Work Phone: [facility]12-30-2020COVID-19 mRNA-1273 (Moderna)Luther Morris DO Work Phone: [facility] Payers DatePayer CategoryPayerPolicy [id number] Cross Blue Shield Managed Care - Other [id number]. Dan C. [facility] [id number] 2..840.3.483737.87470673-24-4204Aldkvkz Health Insurance 1.2.840.708808.1.13.693.2.7.9.111506.129871.22431-41-0432Gprazhi 1.2.840.330011.1.13.159.2.7.3.520[id number] [id number] 2.840.1.796577.3.579.[id number] 2..840.1.118939.3.57[id number] 2.16.840.1.985603.3.579.2.81292-40-4551Zhpxpgi3466925 2.16.840.1.755856.3.579.2.40269-60-0152Ccuupgj5566559 2.16.840.1.024646.3.579.2.[id number] 2.16.840.1.013432.3.579.2.[id number] 2.16.840.1.190185.3.579.2.6[id number] 2.16.840.1.182535.3.579.2.[id number] 2.16.840.1.233947.3.579.2.299106-43-6689Zxeychb682208093 2..840.1.301123.3.579.2.603454-08-4234Fapwstd841439858 2..840.1.947142.3.57[id number] 2.16.840.1.366691.3.579.[id number] 2..840.1.930482.3.579.2.[id number] 2..840.1.132867.3.579.2.506859-45-4771Eetnlks583648813 2..840.1.203339.3.579.2.924[id number] 2..840.1.055871.3.579.2.226359-92-0007Hjmjmlo18677957 2.840.1.250629.3.579.2.829789-45-7298Imcvlti26173623 2.840.1.545297.3.579.2.08221-41-2927Ksqi-gioNwlqvbgX1e7172236va 3qif5fi9-d2gd-9p63-0b85-[id number] 2.16.840.1.108537.3.579.2.531 Social History DateTypeDetailFacilityStart: 07-10-2023 End: 73-68-3535Dqw Assigned At [facility] [employer] Other Start: 07-10-2023 End: 09-87-6230Vlkzkmu smoking status NHISNever smoked tobaccoSt. Francis Hospital Start: 11-22-2022 End: 15-59-7343Gvlunox use and exposureSmokeless tobacco non-userCleveland Clinic Marymount Hospitaltart: 07-10-2023 End: 32-14-5697Hoowwpv of Social functionSt. Francis HospitalNational Score (1-100), lower number is lower dxnw80HdifmtfhlCleveland Clinic Marymount Hospitaltart: 04-51-5187Ajt Assigned At BirthNot on fileCleveland Clinic Marymount Hospitaltart: 11-22-2022 End: 10-19-7599Atkiwffyt beverage intakeCurrent drinker of alcohol (finding)[facility] Cancer CenterStart: 64-37-4160Yem assigned at [facility] CenterStart: 59-99-6670Lejtlc identityIdentifies as male gender (finding)[facility] Start: 96-96-3186Wjfpps orientationHeterosexual (finding)[facility] TrihealthTobacco smoking status NHISTobacco smoking consumption unknownNorwalk Memorial Hospital Molecular Biometrics [facility] Work Phone: Start: 16-92-9484ZqmXcsv (finding)[facility] Molecular Biometrics [facility] Centerexual OrientationHenry County Hospital General Surgery [place] NEGATED: Highlighted rowStart: NINFHistory of tobacco usePassive smokerProCorey Hospital Clinical Notes 09-22-2022 to 12-05-2024 Note Date & LvgzAmtyPihnubun82-03-5908 NoteGeneral Surgery Office/Clinic Note Chief Complaint consultation [...] sclerosis: Father. Primary malign (more content not included)...[facility] Health AdministrationComment on above:Result Comment: Electronically Signed By: ARTHUR NICOLE, Oren Maxwell\Date and Time Signed: 12/05/24 11:52 [id number] Evaluation note* Diagnosis Onset Date Resolution Status Admit Date Chest pain acuteSeptember 2024 1:53pmDyspneaacuteSeptember 2024 1:53pmAsthma acuteOctober 2024 2:48pmBenign prostatic hyperplasia with lower urinary tract symptomsacuteOctober 2024 2:48pmGERD (gastroesophageal reflux disease)acuteOctober 2024 2:48pmIron deficiency anemiaacuteOctober 2024 2:48pmLeft hip impingement syndromeacuteOctober 2024 2:48pmScreening PSA (prostate specific antigen)acuteOctober 2024 2:48pmWellness examinationacuteOctober 2024 2:48pm [facility] Work Phone: 1(422) 116-769807-14-2025 History of Present illness Narrative* Jeana Pierce MD - 08/25/2024 12:55 PM EDT [facility] [address] [facility] [address] Name: Henrik Menjivar : 1975 Chief Complaint [...] well. He recently spent some time in [place] where he did a lot of walking, [...] of the aforementioned history prepared by the [place] practice provider, and I personally performed the [...] needed all questions answered.. documented in this encounterSt. Elizabeth Hospital06-06-2025 History of Present illness Narrative* Micheal [...] hip pain/soreness last few days went to [place] for [facility] college orientation a lot of sitting and walk and long car ride, recovering over last couple days, better this a.m. 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 documented in this [facility]05-20-2025 History of Present illness Narrative* Jeana Pierce MD - 07/01/2024 12:30 PM EDT [facility] [address] [place] [facility] [address] Name: Henrik Menjivar : 1975 Chief Complaint [...] therapy twice a week. He occasionally takes oido-eaj-ibpjfog medication as needed.He is noticing improvements in [...] were addressed and answered. documented in this encounterSt. 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 documented in this encounterEllis Fischel Cancer CenterEcyznmkfgj26-13-5051 History of Present illness Narrative* Jeana Pierce MD - 06/03/2024 1:45 PM EDT [facility] [address] [facility] [address] Name: Henrik Menjivar : 1975 Date of [...] 4 weeks for reassessment. 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 Date: documented in this encounterEllis Fischel Cancer CenterLboboocske29-98-5964 History of Present illness Narrative* Jeana Pierce [...] surgery all questions answered. documented in this encounterSt. Elizabeth Hospital12-11-2024 Miscellaneous Notes* Telephone Encounter - Jeana [...] for surgical planning purposes. documented in this encounterWyandot Memorial HospitalSpanDeX12-11-2024 Telephone encounter Note* Telephone Encounter - Jeana [...] the left hip for surgical planning purposes. 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 male who presents to the office today for his left hip. Patient is a new patient to the practice. Patient has had pain in the left hip for 2-1/2 years. He denies any specific injury. 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 documented in this encounterSt. 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 documented in this encounterEllis Fischel Cancer CenterZqxghtipdf39-45-8448 NoteHNO ID: [id number] Author: BRAD HANNA MD Service: ? Author Type: Physician Type: Progress Notes Filed: 09/14/2023 14:54 Note Text: [facility] Abdominal Core Health - HISTORY AND [...] no inguinal hernia found US - 08/15/23 Xwau-ag-khuwioht tendinosis adductor origin without tear or hyperemia. [...] care with the resident. Signature: BRAD HANNA, [facility]07-29-2024 History of Present illness Narrative* Brad Hanna MD - 09/10/2023 11:00 AM EDT [facility] Abdominal [facility] Health - HISTORY AND PHYSICAL Chief [...] no inguinal hernia found US - 08/15/23 Qooc-gm-rihmdlcg tendinosis adductor origin without tear or hyperemia. [...] Signature: BRAD HANNA MD documented in this encounterSt. Francis Hospital07-29-2024 Nurse Note* Sindhu Stephens MA - 09/10/2023 10:28 AM EDT What is the reason for your visit today? Consult Who is your referring physician? None Are you having poor oral intake? NO Have you had unintentional weight loss of 15 lbs/7 Kg in the last 3-6 months? NO Bowels: regular Wound: None Temperature: No Drains: No [facility]07-29-20[facility] Nurse Note* Sindhu Stephens MA - 09/10/2023 10:28 AM EDT What is the reason for your visit today? Consult Who is your referring physician? None Are you having poor oral intake? NO Have you had unintentional weight loss of 15 lbs/7 Kg in the last 3-6 months? NO Bowels: regular Wound: None Temperature: No Drains: No documented in this encounterSt. Francis Hospital05-29-2024 Telephone encounter Note * Telephone Encounter - Natalia Oliveira - 07/11/2023 3:06 PM EDT Patient has been scheduled for their [facility] US exam on 08/15/23 : 1:35 PM at [facility]-29-[facility] Miscellaneous Notes* Telephone Encounter - Natalia Oliveira - 07/11/2023 3:06 PM EDT Patient has been scheduled for their [facility] US exam on 08/15/23 : 1:35 PM at [facility]. * Telephone Encounter - Natalia Oliveira - [...] locations. Slot held: N/A documented in this encounterSt. Francis Hospital05-29-2024 Telephone encounter Note * Telephone Encounter - Natalia Oliveira - 07/11/2023 11:07 AM EDT Called patient on July 11, 2023 at 11:07 AM to schedule their MSK US exam. No answer, left VM, 1st attempt. Left VM stating [facility] US department will call back. [facility]05-29-20[facility] Telephone encounter Note* Telephone Encounter - [...] the Appointment Note. Do not link order formo9 ([employer]) [employer]. Correct order has been routed. Location: Depending on the surgical hx, this patient can have this exam performed at any of our three locations. Slot held: N/A [facility]05-28-2024 NoteHNO ID: [id number] Author: LUTHER ANN MD Service: ? Author [...] our notes. Patient consented for study? Not [facility]Tr[facility]ull [facility]05-28-2024 History of Present illness Narrative* [...] for study? Not applicable documented in this encounterSt. Francis Hospital05-28-2024 History and physical note * Filomena Arreola MD - 07/10/2023 10:23 AM EDT [facility] Abdominal [facility] Health - HISTORY AND PHYSICAL Chief [...] General Surgery Resident, PGY-1 07/10/2023 10:[address] [facility]05-28-2024 History and physical note* Filomena Arreola MD - 07/10/2023 10:23 AM EDT [facility] - HISTORY AND PHYSICAL Chief [...] PGY-1 07/10/2023 10:23 AM documented in this encounterSt. Francis Hospital05-28-2024 Nurse Note* Jacklyn Graf MA - 07/10/2023 10:06 AM EDT What is the reason for your visit today? Consult Who is your referring physician? Dr. Ann Are you having poor oral intake? NO Have you had unintentional weight loss of 15 lbs/7 Kg in the last 3-6 months? NO Bowels: regular Wound: clean & dry Temperature: No Drains: No [facility]05-28-20[facility] Nurse Note* Jacklyn Graf MA - 07/10/2023 10:06 AM EDT What is the reason for your visit today? Consult Who is your referring physician? Dr. Ann Are you having poor oral intake? NO Have you had unintentional weight loss of 15 lbs/7 Kg in the last 3-6 months? NO Bowels: regular Wound: clean & dry Temperature: No Drains: No documented in this encounterSt. Francis Hospital08-14-2023 Evaluation note* Encounter Date Diagnosis Assessment Notes Treatment Notes Treatment Clinical Notes Sep, Wellness examination (ICD-10 - Z 00.00) [employer] Other 08-11-2023 Evaluation note* Encounter Date Diagnosis [...] low risk patient. Refer for screening colonoscopy [employer] Other Evaluation + Plan note No data available for this section [facility] General Surgery [place] Evaluation noteNo InformationNort [employer] Other Evaluation note* Diagnosis Left inguinal pain- Primary Abdominal pain, left lower quadrant documented in this encounter [facility] HospitalEvaluation [facility]* Diagnosis Left inguinal pain- Primary Abdominal pain, left lower quadrant documented in this encounter [facility] HospitalEvaluation note* Diagnosis Left inguinal pain Abdominal pain, left lower quadrant documented in this encounter [facility] HospitalEvaludelaware psychiatric center note* Diagnosis Pain in left hip- Primary Pain in joint, pelvic region and thigh documented in this encounter [facility] HospitalEvaludelaware psychiatric center note* Diagnosis Right hip pain- Primary Pain in joint, pelvic region and thigh Femoral acetabular impingement documented in this encounter [facility] CenterEvaluation note* Diagnosis Right hip pain- Primary Pain in joint, pelvic region and thigh Femoral acetabular impingement documented in this encounter [facility] HealthcareEvaluation note* Diagnosis Right hip pain- Primary Pain in joint, pelvic region and thigh Femoral acetabular impingement documented in this encounter [facility] HealthcareEvaluation note* Diagnosis Right hip pain- Primary Pain in joint, pelvic region and thigh Femoral acetabular impingement documented in this encounter [facility] HealthcareEvaluation note* Diagnosis Right hip pain- Primary Pain in joint, pelvic region and thigh Femoral acetabular impingement documented in this encounter [facility] HealthcareEvaluation note* Diagnosis Right hip pain- Primary Pain in joint, pelvic region and thigh Femoral acetabular impingement documented in this encounter [facility] HealthcareEvaluation note* Diagnosis Right hip pain- Primary Pain in joint, pelvic region and thigh Femoral acetabular impingement documented in this encounter [facility] HealthcareEvaluation note* Diagnosis Right hip pain- Primary Pain in joint, pelvic region and thigh Femoral acetabular impingement documented in this encounter [facility] HealthcareEvaluation note* Diagnosis Femoroacetabular impingement of left hip- Primary Left hip pain Pain in joint, pelvic region and thigh Femoral acetabular impingement Pain of left hip Left hip pain Pain in joint, pelvic region and thigh documented [facility]* Diagnosis 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- Primary 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 documented [facility]* Diagnosis 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- Primary 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 documented in [facility]* Diagnosis Femoroacetabular impingement of left hip- Primary 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 documented in [facility]* Diagnosis Left hip pain- Primary Pain in joint, pelvic region and thigh 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 documented in this encounter [facility] HealthcareEvaluation note* Diagnosis Left hip pain- Primary Pain in joint, pelvic region and thigh Left hip pain Pain in joint, pelvic region and thigh documented in this [facility]* Diagnosis Left hip pain- Primary Pain in joint, pelvic region and thigh 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 documented in this encounter [facility] HealthcareEvaluation note* Diagnosis Left hip pain- Primary Pain in joint, pelvic region and thigh 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 documented in this encounter [facility] HealthcareEvaluation note* Diagnosis Left hip pain- Primary Pain in joint, pelvic region and thigh 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 documented in this encounter [facility] HealthcareEvaluation note* Diagnosis Left hip pain- Primary Pain in joint, pelvic region and thigh 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 documented in this encounter [facility] HealthcareEvaluation note* Diagnosis Left hip pain- Primary Pain in joint, pelvic region and thigh 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 documented in this encounter [facility] HealthcareEvaluation note* Diagnosis Postoperative visit- Primary documented in this [facility]* Diagnosis Left hip pain- Primary Pain in joint, pelvic region and thigh 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 [facility] Work Phone: Evaluation note* Diagnosis Onset Date Resolution Status Admit Date Chest pain acuteSeptember 2024 1:53pmDyspneaacuteSeptember 2024 1:53pmMurmur acuteSeptember 2024 1:53pm [facility] Work Phone: History general Narrative - Reported* Type Description Date Medical History Allergic rhinitis due to pollen Medical HistoryGastro-esophageal reflux disease without esophagitisMedical HistoryBenign prostatic hyperplasia with lower urinary tract symptomsMedical HistoryAsthmatic bronchitis, mild intermittent, uncomplicated [employer] Other Hospital Discharge instructions No data available for this section [facility] [place] InstructionsNot on filedocumented in this encounter [facility] SystemInstructionsNot on filedocumented in this encounter [facility] SystemInstructionsNot on filedocumented in this encounter [facility] SystemInstructions* Pre-Procedure Instructions - Rosalva Westbrook RN - 05/07/2024 9:30 AM EDT Your surgery/procedure is scheduled at [facility] on 05/21/2024 at 1145 am Tentative arrival time 915 am per surgeon instructions You will receive a phone call from [facility] the day beforeyour surgery to verify your arrival time. [address] [place] [address]. Park in Entrance D. Report to the registration desk in the main lobby. If you have any questions prior to surgery, you may call Pre-Admission Clinic at [phone] between 7:30 am and 4:30 pm Sunday through Sunday. If you have any concerns the morning of surgery, please call the Pre-op Department at [phone]. Notify your SURGEON if you develop any [...] dermal piercings),hair extensions that contain metal, nail fijian, make-up, and contact lens. If you received [...] RIGHTS AND RESPONSIBILITIES As a patient at [facility], you have the right to: Receive medical care and be informed of who is taking care of you Be treated with dignity and respect Have a family member/sales training representative of choice and your physician notified of your admission Receive information and actively participate in decisions about your care and treatment Refuse care, treatment and services Decide who may provide your support and speak for you Access shinto and spiritual services Participate in ethical issues [...] hospital charges and payment methods Patient/patient sales training representative responsibilities are to: Provide information about health status to facilitate care, treatment and services Follow the treatment, plan, keep appointments and speak up when you do not understand the plan Respect the rights of other patients and healthcare personnel Follow organizational rules and regulations that support quality care and a safe environment Fulfill financial obligations as promptly as possible [facility] SystemInstructionsNot on filedocumented in this encounter [facility] [employer] SystemInstructionsNot on filedocumented in this encounter [facility] SystemInstructionsNot on filedocumented in this encounter [facility] Notes* Pre-Procedure Instructions - Rosalva Westbrook RN - 05/07/2024 9:30 AM EDT Your surgery/procedure is scheduled at [facility] [place] on 05/21/2024 at 1145 am Tentative arrival time 915 am per surgeon instructions You will receive a phone call from [facility] the day beforeyour surgery to verify your arrival time. [address] [place] [address]. Park in Entrance D. Report to the registration desk in the main lobby. If you have any questions prior to surgery, you may call Pre-Admission Clinic at [phone] between 7:30 am and 4:30 pm Sunday through Sunday. If you have any concerns the morning of surgery, please call the Pre-op Department at [phone]. Notify your SURGEON if you develop any [...] dermal piercings),hair extensions that contain metal, nail fijian, make-up, and contact lens. If you received [...] RIGHTS AND RESPONSIBILITIES As a patient at [facility], you have the right to: Receive medical care and be informed of who is taking care of you Be treated with dignity and respect Have a family member/sales training representative of choice and your physician notified of your admission Receive information and actively participate in decisions about your care and treatment Refuse care, treatment and services Decide who may provide your support and speak for you Access shinto and spiritual services Participate in ethical issues [...] hospital charges and payment methods Patient/patient sales training representative responsibilities are to: Provide information about health status to facilitate care, treatment and services Follow the treatment, plan, keep appointments and speak up when you do not understand the plan Respect the rights of other patients and healthcare personnel Follow organizational rules and regulations that support quality care and a safe environment Fulfill financial obligations as promptly as possible [facility] System[facility] note No data available for this section [facility] [place] Reason for referral (narrative)* Reason Referral for screeni ng colonoscopy Diagnosis 1 Screening for colon cancer (Z12.11) Referral Organization [facility] florentino Referring Provider First Name Luther Referring Provider Last Name Arturo Referring Provider Specialty Internal Me dicine Referred Organization [facility] Referred Provider Dionisio Callejas Referred Address [address] [place], [place],[address] Referred Provider Specialty Surgery Referral Priority Routine General Notes Dr. Menjivar is being referred for a screening colonoscopy. He is an asymptomatic, low risk patient. He denies family history for colon cancer or polyps. He denies change in appetite, weight or bowel habits. He denies abdominal pain, heartburn or dysphagia. He denies melena or hematochezia. [employer] Other Reason for referral (narrative)* Diagnostic Procedure Only (Routine) - Pending ReviewSpecialtyDiagnoses / ProceduresReferred By ContactReferred To [facility] Diagnoses Left inguinal pain Procedures US PELVIS LTD US PELVIC NONOBSTETRIC IMAGE DCMTN LIMITED/F/U Luther Ann MD [address] [place] [address] [facility] [place] [address] Referral IDStatusReasonStart DateExpiration DateVisits RequestedVisits [id number] Review Auto-Generated Referral T [facility] for referral (narrative)* Diagnostic Procedure Only (Routine) - Pending ReviewSpecialtyDiagnoses / ProceduresReferred By Contact Referred To [facility] Diagnoses Left inguinal pain Procedures US HIP LEFT US COMPL JOINT R-T W/IMAGE DOCUMENTATION Luther Ann MD [address] [place] [address] [place] [address] Referral IDStatusReasonStart DateExpiration DateVisits RequestedVisits [id number] Review Auto-Generated Referral T [facility] for referral (narrative)* Diagnostic Procedure Only (Routine) - ClosedSpecialtyDiagnoses / ProceduresReferred By ContactReferred To [facility] Diagnoses Left inguinal pain Procedures US HIP LEFT US COMPL JOINT R-T W/IMAGE DOCUMENTATION Luther Ann MD [address] [place] [id number] [facility] Referral IDStatusReasonStart DateExpiration DateVisits RequestedVisits [id number] Auto-Generated Referral T [facility] for referral (narrative)No reason for referral information availableHolmes [facility] Work Phone: [facility] Narrative* Diagnostic Procedure Only (Routine) - ClosedSpecialtyDiagnoses / ProceduresReferred By ContactReferred To [facility] Diagnoses Left inguinal pain Procedures US HIP LEFT US COMPL JOINT R-T W/IMAGE DOCUMENTATION Luther Ann MD [address] [place] [id number] [place] [address] Referral IDStatusReasonStart DateExpiration DateVisits RequestedVisits [id number] Auto-Generated Referral / [facility] for visit Narrative* Rehabilitation - Outpatient (Routine) - AuthorizedSpecialtyDiagnoses / ProceduresReferred By Contact Referred To ContactPhysical Therapy Diagnoses Other specified joint disorders, left hip Other articular cartilage disorders, left hip Procedures UT PHYSICAL THERAPY EVALUATION LOW COMPLEX 20 MINS Jeana Pierce MD [address] [place] [address] Phone: tel: fax: Micheal Savage, PT [address] [place] [address] Phone: tel: fax: Referral IDStatusReasonStart DateExpiration DateVisits RequestedVisits [id number] Consult and Treat / [facility] for visit Narrative* Rehabilitation - Outpatient (Routine) - AuthorizedSpecialtyDiagnoses / ProceduresReferred By ContactReferred To ContactPhysical Therapy Diagnoses Other specified joint disorders, left hip Other articular cartilage disorders, left hip Procedures UT PHYSICAL THERAPY EVALUATION LOW COMPLEX 20 MINS Jeana Pierce MD [address] [place] [address] Phone: tel: fax: Micheal Savage, PT [address] [place] [address] Phone: tel: fax: Referral IDStatusReasonStart DateExpiration DateVisits RequestedVisits [id number] Consult and Treat / [facility] for visit Narrative* Rehabilitation - Outpatient (Routine) - ClosedSpecialtyDiagnoses / ProceduresReferred By ContactReferred To Contact Physical Therapy Diagnoses Other specified joint disorders, left hip Other articular cartilage disorders, left hip Procedures UT PHYSICAL THERAPY EVALUATION LOW COMPLEX 20 MINS Jeana Pierce MD [address] [place] [address] Phone: tel: fax: Micheal Savage, PT [address] [facility] [place] [address] Phone: tel: fax: Referral IDStatusReasonStart DateExpiration DateVisits RequestedVisits [id number] Consult and Treat [facility] HealthcareReason for visit Narrative* Rehabilitation - Outpatient (Routine) - AuthorizedSpecialtyDiagnoses / ProceduresReferred By ContactReferred To ContactPhysical Therapy Diagnoses Other specified joint disorders, left hip Other articular cartilage disorders, left hip Procedures UT THERAPEUTIC PX 1/> AREAS EACH 15 MIN EXERCISES Jeana Pierce MD [address] [place] [address] Phone: tel: fax: Micheal Savage, PT [address] [place] [address] Phone: tel: fax: Referral IDStatusReasonStart DateExpiration DateVisits RequestedVisits [id number]/7/20259/ [facility] Healthcare Summary Purpose Family History No Family [...] HIGH COMPLEX 45 MINS Brad Hanna MD [address] [place] [address] [facility] [address] [place] [address] Referral IDStatusReasonStart DateExpiration DateVisits RequestedVisits [id number] Review Auto-Generated Referral Chief Complaint and Reason [...] content) DATE CREATED AUTHOR 08/17/2020 [facility] DATE CREATED AUTHOR AUTHOR'S ORGANIZ ATION 12/23/2021 [facility] DATE CREATED AUTHOR AUTHOR'S ORGANIZ ATION 09/17/2023 [facility] DATE CREATED AUTHOR AUTHOR'S ORGANIZ ATION 03/12/2024 [facility] DATE CREATED AUTHOR AUTHOR'S ORGANIZ ATION 05/22/2024 [facility] DATE CREATED AUTHOR AUTHOR'S ORGANIZ ATION 08/29/2024 [facility] DATE CREATED AUTHOR AUTHOR'S ORGANIZ ATION 10/17/2024 [facility] DATE CREATED AUTHOR AUTHOR'S ORGANIZ ATION 12/07/2024 [facility] REASON FOR VISIT (unrecogniz ed section and content) ReasonCommentsConsultReasonCommentsAppointmentSpecialtyDiagnoses / Procedures Referred By ContactReferred To ContactPhysical Therapy Diagnoses Lt hip pain Procedures UT PHYSICAL THERAPY EVALUATION HIGH COMPLEX 45 MINS Brad Hanna MD Micheal Savage, PT [address] [place] [address] Referral IDStatusReasonStart DateExpiration DateVisits RequestedVisits [id number] PatientNP left hip pain 2 1/2 years, unaware of specific injury, [facility] hasdone PT in past 10 sessions, [...] or prosecute any alcohol or drug abuse patient.[facility] HospitalIn the event this information is protected by the Federal Confidentiality of Alcohol and Drug Abuse Patient Records regulations: The Federal rules restrict any use of the information to criminally investigate or prosecute any alcohol or drug abuse patient.[facility] HospitalIn the event this information is protected by the Federal Confidentiality of Alcohol and Drug Abuse Patient Records regulations: The Federal rules restrict any use of the information to criminally investigate or prosecute any alcohol or drug abuse patient.[facility] HospitalIn the event this information is protected by the Federal Confidentiality of Alcohol and Drug Abuse Patient Records regulations: The Federal rules restrict any use of the information to criminally investigate or prosecute any alcohol or drug abuse patient.[facility] HospitalIn the event this information is protected by the Federal Confidentiality of Alcohol and Drug Abuse Patient Records regulations: The Federal rules restrict any use of the information to criminally investigate or prosecute any alcohol or drug abuse patient.[facility] Care Teams (unrecognized sec tion and content) Team MemberRelationshipSpecialtyStart DateEnd Date Luther Morris MD [address] [place] [address] PCP - Vwpktmy58/10/23Team MemberRelationshipSpecialtyStart DateEnd Date Luther Morris MD [address] [place] [address] PCP - Iscgouc47/10/23Team MemberRelationshipSpecialtyStart DateEnd Date Luther Morris MD [address] [place] [address] PCP - Oschsbk86/10/23Team MemberRelationshipSpecialtyStart DateEnd Date Luther Morris MD [address] [place] [address] PCP - Uozktoa05/10/23Team MemberRelationshipSpecialtyStart DateEnd Date Luther Morris MD [address] [place] [address] PCP - Uteshcu31/10/23Team MemberRelationshipSpecialtyStart DateEnd Date Luther Morris MD [address] [place] [address] PCP - Vcolhao43/10/23Team MemberRelationshipSpecialtyStart DateEnd Date Luther Morris MD [address] [place] [address] PCP - Ufumisu59/10/23Team MemberRelationshipSpecialtyStart DateEnd Date Luther Morris MD [address] [place] [address] PCP - Wzgvkwb54/10/23Team MemberRelationshipSpecialtyStart DateEnd Date Luther Morris MD [address] [place] [address] PCP - Qadywfp13/10/23Team MemberRelationshipSpecialtyStart DateEnd Date Luther Morris MD [address] [place] [address] PCP - Bkwaajx59/10/23Team MemberRelationshipSpecialtyStart DateEnd Date Luther Morris MD [address] [place] [address] PCP - Uvwhkdm13/10/23Team MemberRelationshipSpecialtyStart DateEnd Date Luther Morris MD [address] [place] [address] PCP - Clfcexn44/10/23Team MemberRelationshipSpecialtyStart DateEnd Date Luther Morris DO [address] [facility] [place] [address] PCP - GeneralInternal [facility]10/16/23Team MemberRelationshipSpecialtyStart Date End Date Luther Morris DO [address] [facility] [place] [address] PCP - GeneralInternal Medicine10/16/23Team MemberRelationshipSpecialtyStart Date End Date Luther Morris DO [address] [place] [address] PCP - GeneralInternal Medicine10/16/23Team MemberRelationshipSpecialtyStart Date End Date Luther Morris DO [address] [place] [address] PCP - GeneralInternal Medicine10/16/23Team MemberRelationshipSpecialtyStart Date End Date Luther Morris DO [address] [place] [address] PCP - GeneralInternal Medicine10/16/23Team MemberRelationshipSpecialtyStart Date End Date Luther Morris MD PCP - Gzfsmds47/10/23Team MemberRelationshipSpecialtyStart DateEnd Date Luther Morris MD PCP - Sfgfnsw13/10/23Team MemberRelationshipSpecialtyStart DateEnd Date Luther Morris DO [address] [place] [address] PCP - GeneralInternal Medicine10/16/23Team MemberRelationshipSpecialtyStart Date End Date Luther Morris DO PCP - Ylqcevm79/10/23Team MemberRelationshipSpecialtyStart DateEnd Date Luther Morris DO PCP - Hixgrke15/10/23Team MemberRelationshipSpecialtyStart DateEnd Date Luther Morris, DO PCP - Tsjftoq72/10/23Team MemberRelationshipSpecialtyStart DateEnd Date Luther Morris, DO PCP - Cgnxavr64/10/23Team MemberRelationshipSpecialtyStart DateEnd Date Luther Morris, DO PCP - Rjlsnrz54/10/23Team MemberRelationshipSpecialtyStart DateEnd Date Luther Morris, DO PCP - Kgzwqhi62/10/23Team MemberRelationshipSpecialtyStart DateEnd Date Luther Morris, DO PCP - Pdxsgdi65/10/23Team MemberRelationshipSpecialtyStart DateEnd Date Luther Morris, DO PCP - Jpsgesu52/10/23Team MemberRelationshipSpecialtyStart DateEnd Date Luther Morris, DO PCP - Pzdbahv32/10/23Team MemberRelationshipSpecialtyStart DateEnd Date Luther Morris, DO [address] [place] [address] PCP - GeneralInternal [facility]10/16/23Team MemberRelationshipSpecialtyStart Date End Date Luther Morris, DO PCP - Xorpfjk20/10/23Team MemberRelationshipSpecialtyStart DateEnd Date Luther Morris, DO PCP - Ioodhcx73/10/23Team MemberRelationshipSpecialtyStart DateEnd Date Luther Morris, DO PCP - Vtwtfof31/10/23Team MemberRelationshipSpecialtyStart DateEnd Date Luther Morris, DO PCP - Vhqjqmf97/10/23Team MemberRelationshipSpecialtyStart DateEnd Date Luther Morris, DO [address] [place] [address] PCP [facility]10/16/23Team MemberRelationshipSpecialtyStart Date End Date Luther Morris, DO PCP Bvcmkhy76/10/23 Team Status: Active Member Role Status Dates [...] BE BASED ON THE PRIMARY CLINICAL RECORDS. [facility] [employer], [facility]. provides no warranty or guarantee of the accuracy or completeness of information in this document.
--- OUTSIDE RECORDS SUMMARY | 2024-12-24 07:18 | XMS_ITS | Clinical Summary ---
Author Organization [facility] Healthcare Address [address] [place] [address] Care Team Providers Care Welder Fitter Name Role Phone Luther Nicolas DO Primary Care Provider [phone] Allergies No known active allergies Medications MedicationSigDispense QuantityRefillsLast FilledStart DateEnd DateStatus tamsulosin (Flomax) 0.4 MG 24 hr capsule Active Singulair 10 MG tablet Active cetirizine (ZyrTEC ALLERGY) 10 MG tablet Active Active Problems ProblemNoted DateDiagnosed DateArticular cartilage disorder of left hip 06/03/2024Left hip pain09/27/2023Femoral acetabular pchnpibetcb31/15/2024 Encounter for screening for malignant neoplasm of colon11/22/2022 Immunizations ImmunizationAdministration DatesNext DueInfluenza, seasonal, injectable, preservative free12/12/2023 Family History Medical HistoryRelationNameCommentsProstate cancerFatherBreast cancerNeg HxColon cancerNeg HxOvarian cancerNeg HxRelationNameStatusCommentsFatherAliveMotherAlive Social History Tobacco UseTypesPacks/DayYears UsedDateSmoking Tobacco: NeverSmokeless Tobacco: NeverAlcohol UseStandard Drinks/WeekCommentsYes1 (1 standard drink = 0.6 oz pure alcohol)Sex and Gender InformationValueDate RecordedSex Assigned at BirthMale 11/21/2022 10:54 PM EDTLegal AlgKqer5009/27/2022 2:44 PM EDTGender IdentityMale 11/21/2022 10:54 PM EDTSexual OnicscnlyoaSxaekmvw76/10/2023 10:54 PM EDT Last Filed Vital Signs Vital SignReadingTime TakenCommentsBlood Cozhlfpg754/8610 3:27 PM EDT Pulse--Temperature--Respiratory Rate--Oxygen Saturation--Inhaled Oxygen Concentration--Trhvaz58.6 kg (180 lb)11/22/2022 3:27 PM AZLPopwpw751.7 cm (5' 8 )11/22/2022 3:27 PM EDTBody Mass Index27.371 3:27 PM EDT Plan of Treatment Health MaintenanceDue DateLast DoneCommentsCT Qetcfzwtnwtq70/27/1977FIT-DNA 1976FIT1976FOBT1976 9426Rnzjwkrucjbzh08/27/1977Pneumococcal Vaccine: Pediatrics (0 to 5 Years) and At-Risk Patients (6 to 64 Years) (1 of 2 - PCV)12/09/1995COVID-19 Vaccine (2024- season), 03/11/2020, 02/11/2020Influenza Vaccine (#1)/4Colonoscopy 311/07/2022, 12/18/2022, 3Colorectal Cancer Screening 12/18/2032 Insurance * Guarantor: Tara Simmons TypeRelation to PatientDate of BirthPhone Billing AddressPersonal/SftozgPfqk92/27/1976 [facility] [place] [place] [address] Care Teams Team MemberRelationshipSpecialtyStart DateEnd Date Luther Nicolas DO PCP - Hauvpra09/10/23
--- OUTSIDE RECORDS SUMMARY | 2024-12-24 07:18 | XMS_ITS | Clinical Summary ---
Author Organization [employer] [facility] tem Address [id number] [place] [address] Care Team Providers Care Boat Tester Name Role Phone Luther Nicolas Primary Care Provider [phone] Allergies No known active allergies Medications MedicationSigDispense [...] of acetabular labrum of left hip03/26/2024Femoral acetabular olkkfqqamto77/05/2024 Family History Medical HistoryRelationNameCommentsProstate cancerFatherLouisAnesthesia problems Neg HxRelationNameStatusCommentsFatherLouis Social History Tobacco UseTypesPacks/DayYears UsedDateSmoking Tobacco: NeverPassive Smoke Exposure: NeverSmokeless Tobacco: Never Tobacco Cessation:Counseling Given: Not Answered Alcohol UseStandard Drinks/WeekCommentsYes1 (1 standard drink = 0.6 oz pure alcohol)ChildcareAnswerDate DpnyygdlBxweqsjbzDbboluz55/10/2019EmploymentAnswer Date IzvitpceGmmlunbtzuLqayruv68/10/2019Hunger ScreeningAnswerDate Recorded Within the past 12 months we worried whether our food would run out before we got money to buy more.Never True08/25/2024Within the past 12 months the food we bought just didn't last and we didn't have money to get more.Never True 08/25/2024Sex and Gender InformationValueDate RecordedSex Assigned at BirthNot on fileLegal PijWtql3509/15/2014 3:03 PM EDTGender IdentityNot on fileSexual OrientationNot on file Last Filed Vital Signs Vital SignReadingTime TakenCommentsBlood Qgzactgu068/8504 3:35 PM EDT Pboin2268 3:35 PM CWDJqsabbyuxym06.1 ??C (97 ??F)05/21/2024 1:50 PM EDT Respiratory Zikz8506 3:35 PM EDTOxygen Arimxadfre58%05/21/2024 3:35 PM EDTInhaled Oxygen Concentration--Yyvfar54.1 kg (192 lb)08/25/2024 12:52 PM EDT Didzpq744.7 cm (5' 8 )08/25/2024 12:52 PM EDTBody Mass Index29.19008/25/2024 12:52 PM EDT Plan of Treatment Health MaintenanceDue DateLast DoneCommentsDepression Vzvpmzvrr78/27/1989Adult BMI Follow Up Plan1994DTaP,Tdap and Td Vaccines (1 - Tdap)12/09/1995COVID- 19 Vaccine ( - season), 03/11/2020, 02/11/2020 Influenza Osjeqhf68/Tobacco Imvkyswxc21/dult BMI Gkgabplej39 [employer] Not on file Insurance Care Teams Team MemberRelationshipSpecialtyStart DateEnd Date Luther Nicolas DO [address] [place] [address] PCP - GeneralInternal Medicine10/16/23
--- OUTSIDE RECORDS SUMMARY | 2024-12-24 07:18 | XMS_ITS | Clinical Summary ---
Author Organization [facility] Address [address] [place], [place] [id number] Care Team Providers Care Rn Critical Care Name Role Phone Unavailable Primary Care Provider [...] RecordedNational Score (1-100), lower number is lower gaok961107/10/2023State Score (1-10), lower number is lower esls62207/10/2023 Data from: https://www.neighborhoodatlas.medicine.[facility].edu/. Last address used for jdnwbjgtjna[address]07/10/2023Sex and Gender InformationValueDate RecordedSex Assigned at BirthNot on fileLegal CqhKugs4505/11/2023 4:00 PM EDT Gender IdentityNot on fileSexual OrientationNot on file Last Filed Vital Signs Vital SignReadingTime TakenCommentsBlood Mfsbgmar186/8507 10:31 AM EDT Foynn1945 10:31 AM QERMlsrbdkohxd13.8 ??C (98.3 ??F)09/10/2023 10:31 AM EDTRespiratory Rate--Oxygen Saturation--Inhaled Oxygen Concentration--Jtjswy48.3 kg (188 lb)09/10/2023 10:31 AM UWBHiwjav004.7 cm (5' 8 )09/10/2023 10:31 AM EDT Body Mass Index28.59009/10/2023 10:31 AM EDT Plan of Treatment Health MaintenanceDue DateLast DoneCommentsAnxiety Qodiglnhs43/27/1995Depression Cgmmqnben91/27/1995HIV Zwplhirjr31/27/1995Hepatitis C Cphantaci04/27/1995 DTaP,Tdap,Td Vaccine (1 - Tdap)12/09/1995Hepatitis B Vaccine (1 of 3 - 19+ 3- dose series)12/09/1995Lipid Ogtswsrvk05/27/2012CT Bhznljlyzphi33/27/2022 Cologuard (FIT-DNA)8753Dgozqdlpfam81/27/2022Colorectal Cancer Screening 2Diabetes Rakmwaiuv29/27/2022Fecal Occult Blood2021igmoidoscopy 2Covid-19 Vaccine ( season)510/, 03/11/2020, 02/11/2020Influenza Vaccine (#1)2024 Insurance * Guarantor: Henrik Simmons AAccount TypeRelation to PatientDate of BirthPhone Billing AddressPersonal/ZshluqAxmy12/27/1976 [facility] [place] [address] MemberSubscriberPlan / Payer (Effective 2022-Present)Name:Henrik Simmons Member ID:[id number] Relation to Subscriber:SelfName:Henrik Simmons Subscriber ID:[id number] Payer ID:[id number] (NAIC) Type:PPO Address: [facility] [id number] [place] [address]
[2024-12-24 09:05] VITALS: BP 124/78; PULSE 94; TEMP 36.2; O2SAT 93
[2024-12-24 09:20] VITALS: BP 121/73; PULSE 84; O2SAT 94
[2024-12-24 09:35] VITALS: BP 134/80; PULSE 74; O2SAT 96
== END 2024-12-24 09:35 | disposition home or self-care (01) ==
LOC: SURGOUT 07:15
PROVIDERS: PCP Internal Medicine; Visit Provider Surgery
PROC: (CPT 00731; principal; 2024-12-24 08:20)
DX: D50.9 Iron deficiency anemia, unspecified (principal); K21.9 Gastro-esophageal reflux disease without esophagitis; K29.50 Unspecified chronic gastritis without bleeding; J45.909 Unspecified asthma, uncomplicated; N40.0 Benign prostatic hyperplasia without lower urinary tract symptoms; I10 Essential (primary) hypertension
CPT/HCPCS: 00731; 43239; 88305; 88342; J2704

== ENCOUNTER 2024-12-31 14:52 | Outpatient (OUT) | payer OTHER, SELFPAY ==
--- OUTSIDE RECORDS SUMMARY | 2024-12-24 19:37 | XMS_ITS | Continuity of Care Document ---
Author Organization [facility] Address [address] [place] [address] Phone Care Team Providers Care Manager Of Procurement Name Role Phone Luther Nicolas DO Primary Care Provider Jorge David Jr, DO Attending Provider Luther Nicolas DO Attending Provider Oren Espana MD Attending Provider Care Teams Patient Care Team Team Status: Active Member Role/Relationship Status Dates Luther Nicolas DO Primary Care Provider Active Visit Care Team Team Status: Inactive Member Role/Relationship Status Dates Luther Nicolas DO Primary Care Provider Active Start: October 10, 2024 End: October 10, 2024Jorge David Jr, DOAttnadine ProviderActiveStart: October 10, 2024 End: October 10, 2024 Visit Care Team Team Status: Inactive Member Role/Relationship Status Dates Luther Nicolas DO Primary Care Provider Active Start: November 04, 2024 End: November 04Marbin Aponte ProviderActiveStart: November 04, 2024 End: November 04, 2024 Visit Care Team Team Status: Active Member Role/Relationship Status Dates Luther Nicolas DO Primary Care Provider Active Start: November 18, 2024 Marbin Nagy ProviderActiveStart: November 18, 2024 Visit Care Team Team Status: Inactive Member Role/Relationship Status Dates Luther Nicolas DO Primary Care Provider Active Start: December 03, 2024 End: December 03Marbin Aponte ProviderActiveStart: December 03, 2024 End: December 03, 2024 Visit Care Team Team Status: Inactive Member Role/Relationship Status Dates Oren sEpana MD FACS Attending Provider Active Start: December 24, 2024 End: December 24, 2024 Visit Care Team Team Status: Inactive Member Role/Relationship Status Dates Luther Nicolas DO Primary Care Provider Active Start: December 24, 2024 End: December 24sho Nicolas DOAttending ProviderActiveStart: December 24, 2024 End: December 24, 2024 Chief Complaint and Reason for Visit Chief Complaint Admit Date fpg 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 October 10, 2024 8: 00am intermittent chest pain November 04, 2024 1:53pm Wellness December 03, 2024 2 :48pm Unknown December 24, 2024 9:01am High BP f/u December 24, 2024 3:33pm Reason for Visit Admit Date Chest pain November 04, 2024 1:53pm Dyspnea November 04, 2024 1:53pm Asthma December 03, 2024 2 :48pm Benign prostatic hyperplasia with lower urinary tract symptoms December 03, 2024 2:48pm Cervical lymphadenopathy December 03, 025 2:48pm GERD (gastroesophageal reflux disease) O ctober 2024 2:48pm Hypertension December 03, 2024 2 :48pm Iron deficiency anemia December 03 2:48pm Left hip impingement syndrome December 032024 2:48pm Screening PSA (prostate specific antigen ) December 03, 2024 2:48pm Wellness examination December 03, 2024 2:48pm Cervical lymphadenopathy December 24, 2024 3:33pm Chest pain December 24, 2024 3:33pm Dyspnea December 24, 2024 3:33pm Hypertension December 24, 2024 3:33pm Iron deficiency anemia December 24 3:33pm Allergies, Adverse Reactions, Alerts Allergen Type Severity Reaction Last Updated Verified Status No Known Allergies Allergy Unknown December 24, 2024 4:24pmYesActive Social History Smoking Status Status Start Date [...] PSA (prostate specific antigen) January 03, 2024 5:46pm Unknown Active PSA: 1.58 - 12/2022, 1.59 - 12/2023, 1.46 - 10/2024 Left hip impingement syndrome January 11, 2024 11:18am Unknown Active DyspneaSeptember 2024 1:30pmUnknownActiveEcho: LVEF 55%, normal RV size/function - 11/2024Wellness examinationNov2023 1:09pmUnknown ActiveCervical lymphadenopathyOctober 2024 2:45pmUnknownActiveBenign prostatic hyperplasia with lower urinary tract symptomsNov2023 11:10pmUnknownActiveIron deficiency anemiaOctober 2024 4:28pmUnknownActive GERD (gastroesophageal reflux disease)January 08, 2024 11:10pmUnknownActive Chest painSeptember 2024 1:30pmUnknownActiveHypertensionOctober 2024 2:51pmUnknownActiveAsthmaNovember 2023 11:09pmUnknownActive Medications Medication Status Dose Units Route Directions Qty Days Refills S tart Date Stop Date End Date Reason(s) Instructions Adherence Tamsulosin 0.4 mg capsule Discontinued 0 .ROUTE.2023 7:39amA2024 7:11amTAKE 1 CAPSULE BY MOUTH EVERY DAY FOR 90 DAYSMontelukast 10 mg lfrhlcYqzkiwdqojdy12CGPRNkiqi December 17, 2023 12:00amN[facility] 2023 8:45pmMontelukast 10 mg tablet Discontinued0.ROUTE.TLXEXEO267Gulzhhvc2023 8:45pmDecember 17, 2024 7:11am TAKE 1 TABLET BY MOUTH EVERYDAY AT BEDTIMETamsulosin 0.4 mg capsuleActive0.ROUTE .HVZAFNN916Rgfzho2024 7:11amTAKE 1 CAPSULE BY MOUTH EVERY DAY FOR 90 DAYS Complies with drug therapyAlbuterol Sulfate 90 mcg/actuation HFA aerosol inhaler Hhcfwu3NYDDDLORSYKYWXSpiem 6 hours as needed for shortness of breath or wheezing 8.5302September 2024 7:47amComplies with drug therapyMontelukast 10 mg cfddfkHvwuvz51OIGLEfzzv at fwlkudg05646Gsciqcbe 2024 7:11amComplies with drug therapyTamsulosin 0.4 mg capsuleDiscontinued0.4MGPODailyAugust 2023 11:00pmAugust 2023 7:39amAlbuterol Sulfate 90 mcg/actuation HFA aerosol inhalerDiscontinuedINHALATIONNov2023 12:00amSeptember 2024 7:47amTelmisartan 20 mg fumberRnzxlb22ICGLVtoxj29027Pqeuarc 2024 11:00pm Complies with drug therapy Immunizations Immunization Event Date Not Given Reason Dose Number 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 Number Reason(s) Given Vaccine Information Statement (VIS) Detail Administration Location COVID-19 mRNA-1273 (Moderna) February 11, 2020 [id number] mRNA-1273 (Moderna)March [id number] mRNA-1273 (Moderna)December [id number], injectable, MDCK, pfOctober [id number], Diphtheria, Pertussis (Tdap)October [id number] Relevant Diagnostic Tests and/or Laboratory Data Laboratory Results Test Collection Date/Time Result Date/Time Result Interpretation Reference Range Result Comment Performing Site Thyroid Stimulating Hormone 3rd Gen November 04, 2024 2:04pm November 04, 2024 2:04pm 1.168 u[iU]/mL 0.358-3.740Troponin I High SensitivitySept2024 2:04pmSept2024 2:04pm8.3 pg/mL4.0-76.1CUT-OFF POINTS HAVE BEEN ESTABLISHED BASED ON THE FOURTHUNIVERS DEFINITION OF MYOCARDIAL INFARCTION. THE UPPERREFERENCE LIMIT (URL) OF TROPONIN, DEFINED THE 99THPERCENTILE OF cTnI DISTRIBUTION IN A REFERENCE POPULATION,HAS BEEN CONFIRMED THE DECISION THRESHOLD FOR MIDIAGNOSIS.99TH PERCENTILE = 76.2 PG/MLNOTE: HIGH-SENSITIVITY TROPONIN ASSAY IS NOT INTENDED TO BEUSED IN ISOLATION BUT SHOULD BE INTERPRETED IN CONJUNCTIONWITH OTHER DIAGNOSTIC AND CLINICAL INFORMATION.Anion GapSept2024 2:04pmSept2024 2:04pm10.7Prostate Specific Antigen Screen November 04, 2024 2:04pmSept2024 2:04pm1.46 ng/mL<=4.00D-Dimer Quantitative (PE/DVT)November 04, 2024 2:04pmSe2024 2:04pm0.19 mg/L FEU<=0.59Increases in D-Dimer concentration observed withthromboembolic [...] and generalizedhospitalization. Basophils # (Auto)November 04, 2024 2:04pmSept2024 2:04pm0.0 10 3/uL0.0-0.1FerritinOct2024 6:43amOctober 2024 6:43am33.0 ng/mL 26.0-388.0Iron SaturationOct2024 6:43amOctober 2024 6:43am6.5 % Percent Reticulocyte CountOct2024 6:43amOctober 2024 6:43am2.98 % 0.60-3.10Basophils # (Auto)November 18, 2024 6:43amOctober 2024 6:43am0.0 10 3/uL0.0-0.1Albumin/Globulin RatioSept2024 2:04pmSept2024 2:04pm1.0Basophils (%) (Auto)November 04, 2024 2:04pmSept2024 2:04pm0.5 %0.2-2.0Iron LevelOct2024 6:43amOctober 2024 6:43am26.0 ug/dLBelow low impchb39.0-175.0Basophils (%) (Auto)November 18, 2024 6:43amOctober 2024 6:43am0.5 %0.2-2.0AlbuminSeptember 2024 2:04pm November 04, 2024 2:04pm3.8 g/dL3.4-5.0Eosinophils # (Auto)November 04, 2024 2:04pmSeptember 2024 2:04pm0.1 10 3/uL0.0-0.7Total Iron Binding CapacityNovember 18, 2024 6:43amOctober 2024 6:35up149.0 ug/dL250.0-450.0 Eosinophils # (Auto)November 18, 2024 6:43amOctober 2024 6:43am0.1 10 3/uL 0.0-0.7Alkaline PhosphataseSeptember 2024 2:04pmSeptember 2024 2:04pm84 U/B00-372Dxclopgigbl (%) (Auto)November 04, 2024 2:04pmSept2024 2:04pm0.9 %0.9-7.0Eosinophils (%) (Auto)November 18, 2024 6:43am November 18, 2024 6:43am1.8 %0.9-7.0Alanine Aminotransferase (ALT/SGPT)November 04, 2024 2:04pmSept2024 2:04pm33 U/B40-27MbipbqqyvpJhafuwlkp 2024 2:04pmSeptember 2024 2:04pm35.9 %Below low uxjwgi11.0-54.0 HematocritOct2024 6:43amOct2024 6:43am40.9 %Below low normal 42.0-54.0Aspartate Amino Transf (AST/SGOT)November 04, 2024 2:04pmSept2024 2:04pm21 U/K36-37ZkuysurdtnMrriglren 2024 2:04pmSept2024 2:04pm10.9 g/dLBelow low mpcqem15.0-18.0HemoglobinOct2024 6:43am November 18, 2024 6:43am12.4 g/dLBelow low ulvldt89.0-18.0BUN/Creatinine Ratio November 04, 2024 2:04pmSept2024 2:04pm11.8Immature Granulocyte # (Auto)November 04, 2024 2:04pmSept2024 2:04pm0.02 10 3/uL 0.00-0.03Immature Granulocyte # (Auto)November 18, 2024 6:43amOctober 2024 6:43am0.03 10 3/uL0.00-0.03Blood Urea NitrogenSeptember 2024 2:04pm November 04, 2024 2:04pm13.0 mg/dL7.0-18.0Immature Granulocyte % (Auto) November 04, 2024 2:04pmSept2024 2:04pm0.4 %0.0-0.5Immature Granulocyte % (Auto)November 18, 2024 6:43amOctober 2024 6:43am0.5 %0.0-0.5 Calcium LevelSeptember 2024 2:04pmSept2024 2:04pm8.6 mg/dL 8.5-10.1Lymphocytes # (Auto)November 04, 2024 2:04pmSept2024 2:04pm1.7 10 3/uL1.2-3.8Lymphocytes # (Auto)November 18, 2024 6:43amOctober 2024 6:43am1.7 10 3/uL1.2-3.8Chloride LevelSeptember 2024 2:04pmSept2024 2:13gg901 mmol/Y36-272Cmyubyvivij (%) (Auto)November 04, 2024 2:04pmSept2024 2:04pm29.8 %20.5-60.0Lymphocytes (%) (Auto)November 18, 2024 6:43amOctober 2024 6:43am26.2 %20.5-60.0Carbon Dioxide Level November 04, 2024 2:04pmSeptember 2024 2:04pm24.6 mmol/L21.0-32.0Mean Corpuscular HemoglobinSeptember 2024 2:04pmSeptember 2024 2:04pm22.2 pgBelow low qqvvva16.9-34.0Mean Corpuscular HemoglobinOctober 2024 6:43am November 18, 2024 6:43am23.1 pgBelow low iuatum45.9-34.0CreatinineSeptember 2024 2:04pmSeptember 2024 2:04pm1.10 mg/dL0.70-1.30Mean Corpuscular Hemoglobin ConcentSeptember 2024 2:04pmSeptember 2024 2:04pm30.4 g/dL29.9-35.2Mean Corpuscular Hemoglobin ConcentOctober 2024 6:43amOctober 2024 6:43am30.3 g/dL29.9-35.2Estimated GFR ()November 04, 2024 2:04pmSeptember 2024 2:04pm>60>=60 mL/min/1.73m 2Mean Corpuscular VolumeSeptember 2024 2:04pmSeptember 2024 2:04pm73.3 fL Below low orrjex36.0-94.0Mean Corpuscular VolumeOctober 2024 6:43amOctober 2024 6:43am76.3 fLBelow low usrvbw45.0-94.0Estimated GFR (Non- AmericanSeptember 2024 2:04pmSeptember 2024 2:04pm>60>=60 mL/min/1.73m 2Monocytes # (Auto)November 04, 2024 2:04pmSeptember 2024 2:04pm0.4 10 3/uL0.3-0.8Monocytes # (Auto)November 18, 2024 6:43amOctober 2024 6:43am0.7 10 3/uL0.3-0.8GlobulinSept2024 2:04pmSeptember 2024 2:04pm3.7 g/dLMonocytes (%) (Auto)November 04, 2024 2:04pmSeptember 2024 2:04pm7.8 %1.7-12.0Monocytes (%) (Auto)November 18, 2024 6:43am November 18, 2024 6:43am10.7 %1.7-12.0Glucose LevelSeptember 2024 2:04pm November 04, 2024 2:40vk960 mg/dLAbove high pmuqjj54-952Nmai Platelet Volume November 04, 2024 2:04pmSeptember 2024 2:04pm10.7 fL9.5-13.5Mean Platelet VolumeOctober 2024 6:43amOctober 2024 6:43am10.7 fL9.5-13.5 Potassium LevelSeptember 2024 2:04pmSeptember 2024 2:04pm3.3 mmol/L Below low normal3.5-5.1Neutrophils # (Auto)November 04, 2024 2:04pmSeptember 2024 2:04pm3.4 10 3/uL1.4-6.5Neutrophils # (Auto)November 18, 2024 6:43am November 18, 2024 6:43am4.0 10 3/uL1.4-6.5Sodium LevelSeptember 2024 2:04pmSeptember 2024 2:71dq091 mmol/LBelow low ehibun143-772Ebywzxmkrbq (%) (Auto)November 04, 2024 2:04pmSeptember 2024 2:04pm60.6 %43.0-75.0 Neutrophils (%) (Auto)November 18, 2024 6:43amOctober 2024 6:43am60.3 % 43.0-75.0Total BilirubinSeptember 2024 2:04pmSeptember 2024 2:04pm 0.6 mg/dL0.2-1.0Platelet CountSeptember 2024 2:04pmSeptember 2024 2:13qi807 10 3/lT175-633Pbbdkaqi CountOctober 2024 6:43amOctober 2024 6:06az922 10 3/fK891-492Ficwr ProteinSeptember 2024 2:04pmSeptember 2024 2:04pm7.5 g/dL6.4-8.2Red Blood CountSeptember 2024 2:04pmSeptember 2024 2:04pm4.90 10 6/uL4.70-6.10Red Blood CountOctober 2024 6:43am November 18, 2024 6:43am5.36 10 6/uL4.70-6.10Red Cell Distribution Width November 04, 2024 2:04pmSeptember 2024 2:04pm17.1 %Above high normal 11.0-15.0Red Cell Distribution WidthOctober 2024 6:43amOctober 2024 6:43am22.3 %Above high haabzq46.0-15.0Corrected White Blood CountSeptember 2024 2:04pmSeptember 2024 2:04pm5.7 10 3/uL4.0-11.0Corrected White Blood CountOctober 2024 6:43amOct2024 6:43am6.6 10 3/uL4.0-11.0Glucose LevelAugust 2024 9:41amAugu2024 3:05pm93 mg/cF88-867JfoogdbupMartin [facility] [id number] [address] [facility] [address]Gmain Urea NitrogenAugust 2024 9:41amA2024 3:05pm14 mg/dL7-25[facility] [id number] [address] [facility] [address]AwbfompinuEqqfwv 2024 9:412024 3:05pm1.05 mg/dL0.70-1.30[facility] [id number] [address] [facility] [address]Hxcbsvypu GFR (CKD-EPI)October 10, 2024 9:2024 3:05pm> 60.0 mL/MinBarberton Citizens Hospital Ctr [id number] [address] [facility] [address]Fizcvc LevelAugust 2024 9:2024 3:08cc170 mmol/F407-755DndelwthjBarberton Citizens Hospital [facility]tr [id number] [address] [place] [id number] LevelAugust 2024 9:2024 3:05pm 4.6 mmol/L3.5-5.1FTol[facility] [id number] [address] [place] [id number] LevelAugust 2024 9:412024 3:05pm 105 mmol/V16-859SteeohugpBarberton Citizens Hospital Ctr [id number] [address] [place] [id number] Dioxide LevelAugust 2024 9:412024 3:05pm25.7 mmol/L21.0-31.0[facility] [id number] [address] [facility] [address]Kppze GapAugust 2024 9:412024 3:05pm10.9 mEq/L6.0-15.0[facility] [id number] [address] [facility] [address]Tpvqiqe LevelAugust 2024 9:2024 3:05pm 9.4 mg/dL8.6-10.3FToledo Hospital [facility] [id number] [address] [facility] [address]Vwanmesyipl LevelAugust 2024 9:412024 3:14al740 mg/dLAbove high qyszzr002-314Ldmf less than 200 mg/dl low riskChol 201-239 mg/dl borderline riskChol 240 mg/dl and greater high riskBarberton Citizens Hospital Ctr [id number] [address] [facility] [address]PJC CholesterolAugust 2024 9:412024 3:05pm 46 mg/zI73-85TGK CHOL ATP-III CLASSIFICATION Cardiovascular RiskHDL > or equal to 60 mg/dL LOWHDL < 40 mg/dL [facility] [id number] [address] [facility] [address]Mlrumfgjtbjcb ReflexAugust 2024 9:412024 3:42ap412 mg/dLAbove high normal0-149TRIG ATP III CLASSIFICATIONTRIG less than 150 mg/dL NormalTRIG 150-199 mg/dL Borderline highTRIG 200-500 mg/dL High TRIG greater than 500 mg/dL Very highStandard traceable to the Center for Disease Co nrtrol and Prevention (CDC) test method.[facility] [id number] [address] [facility] [address]RKI Cholesterol, CalculatedAugust 2024 9:412024 3:64au251 mg/dLAbove high normal0-100LDL ATP III CLASSIFICATIONLDL less than 100 mg/dL OptimalLDL 100-129 mg/dL Near or above optimalLDL 130-159 mg/dL Borderline highLDL 160-189 mg/dL HighLDL greater than 189 mg/dL Very high [facility] [id number] [address] [facility] [address]CNAN CholesterolAugust 2024 9:412024 3:05pm32 mg/dLBarberton Citizens Hospital [facility] [id number] [address] [facility] [address]Jenfghyatdz/HDL RatioAugust 2024 9:412024 3:05pm4.5<5.0[facility] [id number] [address] [facility] [address]Hfbuprxs Creatinine Clearance (ChemAugust 2024 9:41October 10, 2024 3:05pm/[facility] [id number] [address] [place] [address] Vital Signs Vital Reading Result Reference Range Collection Date/Time Height 68 [in_i] November 04, 2024 1:02vcCermte47.01 kgSeptember 2024 1:00pmHeart Rate 108 /lgi70-236Wmiyazzpt 23rd, 2025 1:00pmRespiratory rate12 /bup66-26Mttqgivsv 2024 1:00pmBP Jvgwwuxt413 mm[Hg]100-140September 2024 1:00pmBP Vbzbnbdmc44 mm[Hg]60-100September 2024 1:00pmBMI (Body Mass Index)29.8 kg/j5Hhphsjycn2024 1:20hkUhnpca77 [in_i]December 03, 2024 2:12pmWeight 90.77 kgOctober 2024 2:12pmHeart Rate87 /uzw63-698Odnlnhm 2024 2:12pmRespiratory rate12 /rib63-99Irxauqn 2024 2:12pmBP Kardjucc665 mm[Hg] 100-140October 2024 2:12pmBP Otromghao86 mm[Hg]60-100October 2024 2:12pmBMI (Body Mass Index)30.4 kg/l2Yysfnfd 2024 2:71cfLjfast79 [in_i] December 24, 2024 4:09asGmflsu48.50 kgNov2024 4:27pmHeart Rate90 /xmo87-356Dnyxvzsx 12th, 2025 4:27pmRespiratory rate12 /kmb85-11Jbvcmcrn 12th, 2025 4:27pmBP Awktynsj701 mm[Hg]100-140Nov2024 4:27pmBP Fgylzrpur83 mm[Hg]60-100Nov2024 4:27pmBMI (Body Mass Index)29.6 kg/g0Bezjodfe2024 4:27pm Advance Directives Advance Directive Response Recorded Date/ Time Advance Directives No December 10:21am Insurance Providers Guarantor Henrik Simmons Address [address] [facility] [address]Psuloep Info.Home Phone: Coverage Status Update:2024 Payer Group Member ID Coverage Type Subscriber Relationship to Subscriber Effective Date Expiration Date MMO [id number] A Naderer Id: [id number] [address] [facility] [address] Home Phone: Email: [email or web address] Kody Naderer Id: [id number] [address] [facility] [address] Home Phone: Email: [email or web address] Encounters Encounter Location(s) Arrival/Admit Date Discharge/Departure Date Discharge/Departure Disposition Provider(s) Departed Referred -[facility] [address] October 10, 2024 8:00am October 10, 2024 8:01am Discharged to home care or self care (routine discharge) Jorge David DO Departed Physician/ Provider Office Visit -[facility] November 04, 2024 1:53pm November 04, 2024 2:39pm Discharged to home care or self care (routine discharge) Luther Nicolas DO Non-patient / [facility]-visit [facility] 7:[facility]am Julia Nagyed Physician/Provider [facility] 20[facility] 3:44pmDischarged to home care or self care (routine discharge)Sadie Nagy [facility] 9:01amNovember 2024 9:02amDischarged to home care or self care (routine discharge)Oren Espana MD FACSDeparted Physician/Provider Office Visit-[facility] 20[facility] 4:52pmDischarged to home care or self care (routine discharge)Luther Nicolas DO Recent Diagnosis Onset Date Admit Date Chest pain Unknown November 04, 2024 1:53pm Dyspnea Unknown November 04, 2024 1:53pm Asthma Unknown December 03 2:48pm Benign prostatic hyperplasia with lower urinary tract symptoms Unknown December 03, 2024 2:48pm Cervical lymphadenopathy Unknown December 03, 2024 2:48pm GERD (gastroesophageal reflux disease) Unknown December 03, 2024 2:48pm Hypertension Unknown December 03 2:48pm Iron deficiency anemia Unknown November 132024 2:48pm Left hip impingement syndrome Unknown Oc tober 2024 2:48pm Screening PSA (prostate specific antigen) Unknow n December 03, 2024 2:48pm Wellness examination Unknown November 2:48pm Cervical lymphadenopathy Unknown 2024 3:33pm Chest pain Unknown December 24, 2 025 3:33pm Dyspnea Unknown December 24, 2 025 3:33pm Hypertension Unknown December 24, 2 025 3:33pm Iron deficiency anemia Unknown December 24, 2024 3:33pm Assessments Diagnosis Onset Date Resolution Status Admit Date Chest pain acuteSeptember 2024 1:53pmDyspneaacuteSeptember 2024 1:53pmAsthma acuteOctober 2024 2:48pmBenign prostatic hyperplasia with lower urinary tract symptomsacuteOctober 2024 2:48pmCervical lymphadenopathyacuteOctober 2024 2:48pmGERD (gastroesophageal reflux disease)acuteOctober 2024 2:48pmHypertensionacuteOctober 2024 2:48pmIron deficiency anemiaacute December 03, 2024 2:48pmLeft hip impingement syndromeacuteOctober 2024 2:48pmScreening PSA (prostate specific antigen)acuteOctober 2024 2:48pm Wellness examinationacuteOct2024 2:48pmCervical lymphadenopathyacute December 24, 2024 3:33pmChest painacuteNovember 2024 3:33pmDyspneaacute December 24, 2024 3:33pmHypertensionacuteNov2024 3:33pmIron deficiency anemiaacuteNov2024 3:33pm Plan of Treatment Author Luther Nicolas [facility] 2024 6:12pmHe found a right supraclavicular LN - difficult to palpate - no fever, chills or night sweats - no rhinorrhea, sore throat or cough CXR: no infiltrate, fluid or mass - 10/2024 CT neck: no cervical lymphadenopathy - 11/2024 Recommend CTA to r/o pulmonary mass I have instructed this patient to consume a healthy, low-fat, low-salt diet. I have also encouraged them to continue exercise with weight loss to achieve/maintain a BMI < 30. I have instructed this patient on the correct procedure for obtaining home BP measurements:? - rest for 5 minutes w/o talking. - positioned w/ feet on floor and arms supported. - average best 2/3 readings w/ goal < 135/85. Update office w/ home readings in 2 weeks. Continue Telmisartan without interruption Stopped NSAIDs and initiated Fe supplementation. f/u Hgb improved Last colonoscope 12/2022 EGD: w/ gastritis and nonbleeding ulcers - 12/2024 Continue Nexium and Carafate without interruption Echo: LVEF 55%, normal RV size/function - 11/2024 Recommend CTA to r/o mass and PE. Recommend PFT to dx obstruction vs restrictive disease Consider stress testing Echo: LVEF 55%, normal RV size/function - 11/2024 Recommend CTA to r/o mass and PE. Consider stress testing Author Luther [facility]AuthoredOctober 2024 2:52pmI have instructed this patient on the recommended [...] is agreeable to this plan of action PSA: 1.46 - 10/2024 Stopped NSAIDs and initiated Fe supplementation. f/u Hgb improved Last colonoscope 12/2022 scheduled for EGD He found a right supraclavicular LN - difficult to palpate - no fever, chills or night sweats - no rhinorrhea, sore throat or cough CXR: no infiltrate, fluid or mass - 10/2024 I have instructed this patient to consume a healthy, low-fat, low-salt diet. I have also encouraged them to continue exercise with weight loss to achieve/maintain a BMI < 30. I have instructed this patient on the correct procedure for obtaining home BP measurements:? - rest for 5 minutes w/o talking. - positioned w/ feet on floor and arms supported. - average best 2/3 readings w/ goal < 135/85. Update office w/ home readings in 2 weeks. Initiate Telmisartan and update office in couple weeks Author Luther Nicolas [facility] HospitalAuthoredSeptember 2024 8:53pmRecently developed dyspnea w/ normal daily activities. Recent [...] Tests Test Name Ordered Date Scheduled Date CT soft tissue neck w con December 03, 2024 2:4 4pm Comprehensive Metabolic PanelSeptember 2024 1:36pmXR chest 2V*November 04, 2024 1:30pmECH echo transthoracicSeptember 2024 1:31pm Future Visits Future appointment information is unavailable Future Procedures Procedure Name Ordered Date Scheduled Date CT angio chest December 24, 2024 5:36pm Complete Blood Count Auto DiffNovember 2024 5:38pmComplete Pulmonary FunctionNovember 2024 6:12pmC-Reactive ProteinNovember 2024 5:38pm FerritinNovember 2024 5:41pmTroponin I High SensitivitySeptember 2024 1:36pmPSA Screen (Yearly Only)November 04, 2024 1:36pm Future Medications Future medication information is unavailable Patient Instructions Patient instructions are unavailable
--- OUTSIDE RECORDS SUMMARY | 2024-12-31 14:55 | XMS_ITS | Clinical Summary ---
Author Organization [facility] Address [address] [place], [place] [id number] Care Team Providers Care Parts Cataloguer Name Role Phone Unavailable Primary Care Provider [...] RecordedNational Score (1-100), lower number is lower ccmr366307/10/2023State Score (1-10), lower number is lower shaw46307/10/2023 Data from: https://www.neighborhoodatlas.medicine.[facility].edu/. Last address used for [address]/10/2023Sex and Gender InformationValueDate RecordedSex Assigned at BirthNot on fileLegal JqkVhlc9805/11/2023 4:00 PM EDT Gender IdentityNot on fileSexual OrientationNot on file Last Filed Vital Signs Vital SignReadingTime TakenCommentsBlood Ugxqfiht134/8507 10:31 AM EDT Omvqg6180 10:31 AM BPGUkwjexphxjq48.8 ??C (98.3 ??F)09/10/2023 10:31 AM EDTRespiratory Rate--Oxygen Saturation--Inhaled Oxygen Concentration--Rpzcxt61.3 kg (188 lb)09/10/2023 10:31 AM AYWPtiqzx977.7 cm (5' 8 )09/10/2023 10:31 AM EDT Body Mass Index28.59009/10/2023 10:31 AM EDT Plan of Treatment Health MaintenanceDue DateLast DoneCommentsAnxiety Hiouosfgz65/27/1995Depression Wlraiymep40/27/1995HIV Fbkcuximm71/27/1995Hepatitis C Rihmklcpd72/27/1995 DTaP,Tdap,Td Vaccine (1 - Tdap)12/09/1995Hepatitis B Vaccine (1 of 3 - 19+ 3- dose series)12/09/1995Lipid Balbjlckm54/27/2012CT Jgdccobqvhyw22/27/2022 Cologuard (FIT-DNA)8258Tsiyulyunjs11/27/2022Colorectal Cancer Screening 2Diabetes Lseixfire98/27/2022Fecal Occult Blood2021igmoidoscopy 2Covid-19 Vaccine ( season)510/, 03/11/2020, 02/11/2020Influenza Vaccine (#1)2024 Insurance * Guarantor: Henrik Simmons AAccount TypeRelation to PatientDate of BirthPhone Billing AddressPersonal/SpuiviBewz55/27/1976 [facility] [place] [address]
--- OUTSIDE RECORDS SUMMARY | 2024-12-31 14:55 | XMS_ITS | Clinical Summary ---
Author Organization [facility] Address [address] [place] [address] Care Team Providers Care Medical Unit Secretary Name Role Phone Luther Nicolas DO Primary Care Provider [phone] Allergies No known active allergies Medications MedicationSigDispense QuantityRefillsLast FilledStart DateEnd DateStatus tamsulosin (Flomax) 0.4 MG 24 hr capsule Active Singulair 10 MG tablet Active cetirizine (ZyrTEC ALLERGY) 10 MG tablet Active Active Problems ProblemNoted DateDiagnosed DateArticular cartilage disorder of left hip 06/03/2024Left hip pain09/27/2023Femoral acetabular cogpxbfnpjv08/15/2024 Encounter for screening for malignant neoplasm of colon11/22/2022 Immunizations ImmunizationAdministration DatesNext DueInfluenza, seasonal, injectable, preservative free12/12/2023 Family History Medical HistoryRelationNameCommentsProstate cancerFatherBreast cancerNeg HxColon cancerNeg HxOvarian cancerNeg HxRelationNameStatusCommentsFatherAliveMotherAlive Social History Tobacco UseTypesPacks/DayYears UsedDateSmoking Tobacco: NeverSmokeless Tobacco: NeverAlcohol UseStandard Drinks/WeekCommentsYes1 (1 standard drink = 0.6 oz pure alcohol)Sex and Gender InformationValueDate RecordedSex Assigned at BirthMale 11/21/2022 10:54 PM EDTLegal GnjDono5409/27/2022 2:44 PM EDTGender IdentityMale 11/21/2022 10:54 PM EDTSexual EufiaxpyxnlCzijqxfw47/10/2023 10:54 PM EDT Last Filed Vital Signs Vital SignReadingTime TakenCommentsBlood Bzeenfyu815/8610 3:27 PM EDT Pulse--Temperature--Respiratory Rate--Oxygen Saturation--Inhaled Oxygen Concentration--Hbqqsv30.6 kg (180 lb)11/22/2022 3:27 PM JNAIptbay377.7 cm (5' 8 )11/22/2022 3:27 PM EDTBody Mass Index27.371 3:27 PM EDT Plan of Treatment Health MaintenanceDue DateLast DoneCommentsCT Bxmpjcgkjqdo67/27/1977FIT-DNA 1976FIT1976FOBT1976 2522Lysypmujimzrq90/27/1977Pneumococcal Vaccine: Pediatrics (0 to 5 Years) and At-Risk Patients (6 to 64 Years) (1 of 2 - PCV)12/09/1995COVID-19 Vaccine (2024- season), 03/11/2020, 02/11/2020Influenza Vaccine (#1)/4Colonoscopy 311/07/2022, 12/18/2022, 3Colorectal Cancer Screening 12/18/2032 Insurance * Guarantor: Tara Simmons TypeRelation to PatientDate of BirthPhone Billing AddressPersonal/RxvhfyZsia21/27/1976 [facility] [place] [address] Care Teams Team MemberRelationshipSpecialtyStart DateEnd Date Luther Nicolas DO PCP - Mwvzwfn02/10/23
--- OUTSIDE RECORDS SUMMARY | 2024-12-31 14:55 | XMS_ITS | Clinical Summary ---
Author Organization [facility] tem Address [id number] [address] [place] [address] Care Team Providers Care Executive Services Administrator Name Role Phone Luhter Nicolas Primary Care Provider [phone] Allergies No known active allergies Medications MedicationSigDispense [...] of acetabular labrum of left hip03/26/2024Femoral acetabular qslypwlqlgy54/05/2024 Family History Medical HistoryRelationNameCommentsProstate cancerFatherLouisAnesthesia problems Neg HxRelationNameStatusCommentsFatherLouis Social History Tobacco UseTypesPacks/DayYears UsedDateSmoking Tobacco: NeverPassive Smoke Exposure: NeverSmokeless Tobacco: Never Tobacco Cessation:Counseling Given: Not Answered Alcohol UseStandard Drinks/WeekCommentsYes1 (1 standard drink = 0.6 oz pure alcohol)ChildcareAnswerDate TmfllicyUxqxghamdYoiwssr52/10/2019EmploymentAnswer Date DcraauahIbortgnocaReiznwx84/10/2019Hunger ScreeningAnswerDate Recorded Within the past 12 months we worried whether our food would run out before we got money to buy more.Never True08/25/2024Within the past 12 months the food we bought just didn't last and we didn't have money to get more.Never True 08/25/2024Sex and Gender InformationValueDate RecordedSex Assigned at BirthNot on fileLegal SbgSxbf2409/15/2014 3:03 PM EDTGender IdentityNot on fileSexual OrientationNot on file Last Filed Vital Signs Vital SignReadingTime TakenCommentsBlood Cbcihvjl733/8504 3:35 PM EDT Kzucz4704 3:35 PM LQCAvoohmsyaav24.1 ??C (97 ??F)05/21/2024 1:50 PM EDT Respiratory Pdcp6895 3:35 PM EDTOxygen Ashnjdhycb45%05/21/2024 3:35 PM EDTInhaled Oxygen Concentration--Dvrjqe45.1 kg (192 lb)08/25/2024 12:52 PM EDT Jqzsef965.7 cm (5' 8 )08/25/2024 12:52 PM EDTBody Mass Index29.19008/25/2024 12:52 PM EDT Plan of Treatment Health MaintenanceDue DateLast DoneCommentsDepression Eprnfgjyk26/27/1989Adult BMI Follow Up Plan1994DTaP,Tdap and Td Vaccines (1 - Tdap)12/09/1995COVID- 19 Vaccine ( - season), 03/11/2020, 02/11/2020 Influenza Xeovvow05/Tobacco Townnnojy10/dult BMI Qlpdyohtm86 Medical Devices Not on file Insurance Care Teams Team MemberRelationshipSpecialtyStart DateEnd Date Luthre Nicolas DO [address] [place] [address] PCP - GeneralInternal Medicine10/16/23
--- OUTSIDE RECORDS SUMMARY | 2024-12-31 14:57 | XMS_ITS | CCD ---
Author Organization [facility] Care Team Providers Care Space And Storage Clerk Name Role Phone ARTURO, DR CORTÉS Admitting [...] BALL, LUTHER E Primary Care Unavailable PIERCE, JEAAN K Attending Unavailable BALL, LUTHER E Referring Unavailable BALL, LUTHER E Primary Care Unavailable PIRECE, JEANA K Referring Unavailable BALL, LUTHER E Primary Care Unavailable PIERCE, JEANA K Attending Unavailable BALL, LUTHER E Referring Unavailable BALL, LUTHER E Primary Care Unavailable PIERCE, JEANA K Attending Unavailable BALL, LUTHER E Referring Unavailable BALL, LUTHER E Primary Care Unavailable Ball Luther JACOBSON Primary Care Provider [phone] Jorge David DO Attending Provider Malatz Jr, Edanalilia Attending Unavailable Joann Jr, Edward Admitting Unavailable Luther Morris Primary Care Unavailable Luther Morris DO Attending Provider [phone] ARTURO LUTHER Primary Care Physician [phone] Oren GIBSON Attending Unavailable LUTHER MORRIS Referring Unavailable Allergies Allergy ClassificationReported Allergen(s)Allergy TypeDate of OnsetReaction(s) Facility (1 source)No Known Medication Allergies; Translations: [No Known Medication Allergies]Propensity to adverse reactions (disorder)[facility] Medications Current Medications MedicationDrug Class(es)DatesSig (Normalized)Sig (Original)acetaminophen 500 mg oral tablet (2 sources)acetaminophen (TYLENOL EXTRA STRENGTH) 500 mg tablet Take 1 tablet (500 mg total) by mouth as needed for pain. Activeacetaminophen 325 mg / HYDROcodone bitartrate 5 mg oral tablet (1 source)Opioid AgonistStart: 05-21-2024 End: 28-29-3395UTHUEphewgf-acetaminophen (NORCO) 5-325 mg per tablet Indications: Post-operative pain Take 1-2 tablets by mouth every 6 (six) hours as needed for pain for up to 5 days. Max Daily Amount: 8 tablets 40 tablet 05/21/2024 05/26/2024 ActiveAlbuterol (9 sources)beta2-Adrenergic AgonistStart: 07-80-8516csrh 2 puff(s) by inhalation every six hoursAlbuterol (Eqv-ProAir HFA) 2 puff(s), Inhalation, q6hr Shortness of breath or wheezing, Refill(s) 0Start Date: 11/21/24 Status: Ordered Repeat number: 1Start: 01-68-3425yltc 1 puff(s) by inhalation every six hours as needed for wheezingAlbuterol Sulfate 90 mcg/actuation HFA aerosol inhaler Active 2 PUFF INHALATION Every 6 hours as needed for shortness of breath or wheezing 8.5 30 2 November 10, 2024 8:47am Complies with drug therapyStart: 01-02-2024 End: 24-60-2641Xwfihdwkd Sulfate 90 mcg/actuation HFA aerosol inhaler Discontinued [...] Inhibitor, Nonsteroidal Anti-inflammatory Drug Start: 05-21-2024 End: 51-90-5932gfem 1 tablet by mouth in the morningaspirin 81 mg Take 1 tablet (81 mg total) by mouth in the morning and 1 tablet (81 mg total) beforebedtime. Do all this for 30 days. To start after aspirin 325 mg complete. 60 tablet 05/21/2024 06/20/2024 ActiveStart: 05-21-2024 End: 76-27-3155bxab 1 tablet by mouth in the morning, [...] release oral capsule (1 source)Proton Pump InhibitorStart: 83-34-3693djsu 1 capsule by mouth once dailyNexium 40 mg Cap-EC 40 mg = 1 cap(s), Oral, Daily, Refills(s) 0 Start Date: 12/05/24 Status: Ordered Repeat number: 1ferrous sulfate 325 mg oral tablet (1 source)Start: 82-93-0420gtao 1 tablet by mouth once dailyferrous sulfate 325 mg Tab 325 mg = 1 tab(s), Oral, Daily, Refills(s) 0 Start Date: 12/05/24 Status: Ordered Repeat number: 1indomethacin 75 mg extended release oral capsule (4 sources)Nonsteroidal Anti-inflammatory DrugStart: 90-16-3340lujn 1 capsule by mouth at mealtimeindomethacin SR (INDOCIN SR) 75 mg CR capsule Take 1 capsule (75 mg total) by mouth in the morning.With food. 4 capsule 05/21/2024 Active montelukast 10 mg oral tablet (20 sources)Leukotriene Receptor AntagonistStart: 33-86-7278rgut 1 tablet by mouth once dailySingulair 10 mg Tab 10 mg = 1 tab(s), Oral, Daily, Refills(s) 0 Start Date: 11/21/24 Status: Ordered Repeat number: 1Start: 93-17-5021lqje 1 tablet by mouth once daily at bedtimeMontelukast 10 mg tablet Active 0 .ROUTE .COMPLEX 90 3 December 17, 2023 9:45pm TAKE 1 TABLET BY MOUTH EVERYDAY AT BEDTIME Complies with drug therapyStart: 12-17-2023 End: 34-20-9140eyby 1 tablet by mouth once dailyMontelukast 10 mg tablet Discontinued 10 MG PO Daily December 17, 2023 1:00am December 17, 2023 9:45pm Start: 28-40-9153apuyiteocjr (SINGULAIR) 10 mg tablet Take by mouth every 24 hours. 0 10/08/2021 Activenaproxen 500 mg oral tablet (2 sources)Nonsteroidal Anti-inflammatory DrugStart: 05-21-2024 End: 68-97-8120qavk 1 tablet by mouth in the morning, [...] mg oral tablet (4 sources)Serotonin-3 Receptor AntagonistStart: 08-50-3519tbrm 1 tablet by mouth every eight hours as needed for nausea and vomitingondansetron (ZOFRAN) 4 mg tablet Take 1 tablet (4 mg total) by mouth every 8 (eight) hours as needed for nausea or vomiting. 20 tablet 05/21/2024 Activepantoprazole 40 mg delayed release oral tablet (4 sources)Proton Pump InhibitorStart: 45-73-6346axdw 1 tablet by mouth in the morningpantoprazole (PROTONIX) 40 mg EC tablet Take 1 tablet (40 mg total) by mouth in the morning. 10 tablet 05/21/2024 Activetamsulosin (20 sources)alpha-Adrenergic BlockerStart: 23-49-1301mmyzupyfiy as directed, Refills(s) 0 Start Date: 11/21/24 Status: Ordered Repeat number: 1Start: 09-18-2023 End: 66-25-0594tqce 1 capsule by mouth once dailyTamsulosin 0.4 mg capsule Active 0 .ROUTE .COMPLEX 90 3 September 16, 2024 8:11am TAKE 1 CAPSULE BY MOUTH EVERY DAY FOR 90 DAYS Complies with drug therapyStart: 09-22-2022 End: 71-82-7848bkce 1 capsule by mouth once dailyTamsulosin 0.4 mg capsule Discontinued 0.4 MG PO Daily September 18, 2023 12:00am September 18, 2023 8:39am tamsulosin (Flomax) 0.4 MG 24 hr capsule Activetelmisartan 20 mg oral tablet (2 sources)Angiotensin 2 Receptor BlockerStart: 16-89-7893kbsi 1 tablet by mouth once dailytelmisartan 20 mg oral tablet 20 mg = 1 tab(s), Oral, Daily, Refills(s) 0 Start Date: 12/05/24 Status: Ordered Repeat number: 1Start: 72-74-8223vetx 1 tablet by mouth once dailyTelmisartan 20 mg tablet Active 20 MG PO Daily December 03, 2024 12:00am Complies with drug therapy Problems Active Problems Problem ClassificationProblemDateDocumented DateEpisodic/ChronicAbdominal pain (8 sources)Left lower quadrant pain; Translations: [Left inguinal pain]Onset: 27-52-9923DlwdapniIcioqt (9 sources)Mild intermittent asthma; Translations: [Mild intermittent asthma, uncomplicated]46-11-3802ElzpehzHvfxktajsb and other anemia (4 sources)Iron deficiency anemia; Translations: [Iron deficiency anemia, unspecified]Onset: 461385-72-0789ClglwfkiAuqmxqniak disorders (10 sources)Gastroesophageal reflux disease without esophagitis; Translations: [Gastro-esophageal reflux disease without esophagitis]Onset: 12-05-2024 49-02-2192MnfsgvxSgkuvzchbgemk symptoms and ill-defined conditions (6 sources)Delay when starting to pass urine; Translations: [Hesitancy of micturition]EpisodicHeart valve disorders (3 sources)Heart murmur; Translations: [Cardiac murmur, unspecified]11-04-2024 EpisodicHyperplasia of prostate (11 sources)Lower urinary tract symptoms due to benign prostatic hypertrophy; Translations: [Benign prostatic hyperplasia with lower urinary tract symptoms] ChronicJoint disorders and dislocations; trauma-related (20 sources)Other articular cartilage disorders, left hip; Translations: [Acetabular labrum tear]Onset: 175520-36-0119YlqzfgfJofbeayhozu chest pain (4 sources)Chest pain; Translations: [Chest pain, unspecified]12-80-1237Vrhxqazm Other aftercare (1 source)Postoperative visit; Translations: [Encounter for other specified surgical aftercare]08-77-7953PctgbxrcXtwut aftercare (1 source)Encounter for other specified surgical aftercare; Translations: [Encounter for other specified surgical aftercare]Onset: 70-27-1934PahluwfkRcogc injuries and conditions due to external causes (6 sources)Other specified injuries of abdomen, subsequent encounter; Translations: [OTH SPEC INJURIES ABD SUBSEQUENT]Onset: 76-54-8369XlnbgekuQaeju lower respiratory disease (4 sources)Dyspnea; Translations: [Dyspnea, unspecified]82-16-1549Lheapbja Comment on above:Echo: LVEF 55%, normal RV size/function - 11/2024Other nervous system disorders (1 source)Other acute postprocedural pain; Translations: [Other acute postprocedural pain]Onset: 54-33-8987VmjvatgdGoxdw non-traumatic joint disorders (20 sources)Hip pain; Translations: [Pain in left hip]Onset: 09-27-2023 80-46-9429QetpsdlbSrgwx non-traumatic joint disorders (20 sources)Pain in right hip joint; Translations: [Pain in right hip]Onset: 467025-64-0344EqywobmvPlolq non-traumatic joint disorders (20 sources)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; Translations: [Other specified joint disorders, left hip]Onset: 136942-55-6891Vijpflrh Other non-traumatic joint disorders (4 sources)Enthesopathy of hip region; Translations: [Other specified joint disorders, left hip]67-01-3535VrcugpjdLuvff nutritional; endocrine; and metabolic disorders (1 source)Ipcagpugmx37-41-8031YmeqcrzzRemax nutritional; endocrine; and metabolic disorders (1 source)Overweight in adulthood with body mass index of 25 or more but less than 6176-28-9237TeqigdaxIgldk screening for suspected conditions (not mental disorders or infectious disease) (20 sources)Encounter for screening for malignant neoplasm of prostate; Translations: [Encounter for screening for malignant neoplasm of colon]Onset: 49-46-3890LdzieajfKejyinp on above:PSA: 1.58 - 12/2022, 1.59 - SA: 1.58 - 12/2022, 1.59 - 12/2023, 1.46 - 10/2024Other upper respiratory disease (4 sources)Allergic rhinitis due to pollen; Translations: [Allergic rhinitis due to pollen]ChronicOther upper respiratory disease (1 source)Allergic tpaisnom35-19-9515EicfmifKbfrjfkliwze (3 sources)CONTACT W/AND (SUSP) EXPOS COVID-19; Translations: [CONTACT W/AND (SUSP) EXPOS COVID-19]Onset: 10-28-6356Gwuqttsposaj (1 source)Femoroacetabular impingement of left hip [M25.852]Onset: 05-21-2024 Unclassified (1 source)Post-opOnset: 28-95-8489Zwvgerjfkrfq (1 source)New PatientOnset: 12-18-2023 Past or Other Problems Problem ClassificationProblemDateDocumented DateEpisodic/ChronicOther non- traumatic joint disorders (20 sources)Femoral acetabular impingement; Translations: [Other specified joint disorders, unspecified hip]Onset: 443568-08-6191JpkopemtRkvxl non- traumatic joint disorders (3 sources)Other specified joint disorders, left hip; Translations: [Other specified joint disorders, left hip]Onset: 20-72-7910BqlgmhhkSoszz non-traumatic joint disorders (2 sources)Other specified joint disorders, unspecified hip; Translations: [Other specified joint disorders, unspecified hip]Onset: 85-13-8012TluzzbxdIioax non-traumatic joint disorders (2 sources)Pain in left hip; Translations: [Pain in left hip]Onset: 12-18-2023 EpisodicResidual codes; unclassified (1 source)PainOnset: 66-45-4418HytlrgydAigvmrnhdmtm (1 source)CONTACT W/AND (SUSP) EXPOS COVID-19; Translations: [CONTACT W/AND (SUSP) EXPOS COVID-19]Onset: 02-15-2021 Results Test NameValueInterpretationReference RangeFacilityAmbulatory Visit Summaryon 02-72-5904Bmzwgailxa Visit SummaryAmbulatory Visit Summary ANJUMJanesHENRIK :1975 Visit [...] signed up for this yet, please contact [facility] [employer] at [phone] to get signed up today. Language Information Language assistance services are available as needed. NormalSandhills Regional Medical Centerer R Adams [facility] Shock Trauma CenterBasophils Auto (Bld) [#/Vol] Ordered By: Luther Morris on 73-90-8801Nysudcsmz (Bld) [#/Vol]0.0 10 3/uL0.0-0.1 [facility] HospitalBasophils/100 WBC Auto (Bld)Ordered By: Luther Morris on 93-91-5771Ispxkmbho/100 WBC (Bld)0.5 %0.2-2.0[facility] HospitalEosinophils/100 WBC Auto (Bld)Ordered By: Luther Morris on 02-21-4512Tccgahurgrp/100 WBC (Bld)1.8 %0.9-7.0[facility] Erythrocyte distribution width Auto (RBC) [Ratio]Ordered By: Luther Morris on 26-06-3872Nwxophjibpq distribution width (RBC) [Ratio]22.3 %High11.0-15.0 [facility] HospitalHematocrit Auto (Bld) [Volume fraction]Ordered By: Luther Morris on 55-52-1499Xdvfavmamg (Bld) [Volume fraction]40.9 %Low 42.0-54.0[facility] HospitalHemoglobin [Mass/volume] in Blood Ordered By: Luther Morris on 66-96-5386Xwscbwumil (Bld) [Mass/Vol]12.4 g/dLLow 14.0-18.0[facility] HospitalIron binding capacity [Mass/volume] in Serum or PlasmaOrdered By: Luther Morris on 13-95-2305Ysrw binding capacity [Mass/Vol]401.0 ug/dL250.0-450.0[facility] HospitalIron saturation [Mass Fraction] in Serum or PlasmaOrdered By: Luther Morris on 53-93-0453Zqbk saturation [Mass fraction]6.5 %[facility] HospitalLaboratory - Chemistry and Chemistry - challengeOrdered By: Luther Morris on 11-18-2024 Ferritin [Mass/Vol]33.0 ng/mL26.0-388.0[facility] HospitalIron [Mass/Vol]26.0 ug/dLLow65.0-175.0[facility] HospitalLaboratory - Hematology and Cell countsOrdered By: Luther Morris on 97-24-0634Ingfcwbs granulocytes/100 WBC (Bld)0.5 %0.0-0.5FJoint Township District Memorial Hospital Leukocytes [#/volume] corrected for nucleated erythrocytes in Blood by Automated counOrdered By: Luther Morris on 81-07-9709TEZ corrected for nucl RBC Auto (Bld) [#/Vol]6.6 10 3/uL4.0-11.0[facility] HospitalLymphocytes Auto (Bld) [#/Vol]Ordered By: Luther Morris on 87-71-8190Vsxdfjuxflu (Bld) [#/Vol]1.7 10 3/uL1.2-3.8[facility] HospitalLymphocytes/100 WBC Auto (Bld)Ordered By: Luther Morris on 63-07-6113Rnicpnfuvqe/100 WBC (Bld)26.2 % 20.5-60.0[facility] HospitalH Auto (RBC) [Entitic mass]Ordered By: Luther Morris on 60-75-1546KVO (RBC) [Entitic mass]23.1 pgLow25.9-34.0 [facility] HospitalMCHC Auto (RBC) [Mass/Vol]Ordered By: Luther Morris on 71-89-3619GJJN (RBC) [Mass/Vol]30.3 g/dL29.9-35.2FJoint Township District Memorial HospitalMCV Auto (RBC) [Entitic vol]Ordered By: Luther Morris on 03-69-7157YMC (RBC) [Entitic vol]76.3 fLLow80.0-94.0[facility] HospitalMonocytes Auto (Bld) [#/Vol]Ordered By: Luther Morris on 11-18-2024 Monocytes (Bld) [#/Vol]0.7 10 3/uL0.3-0.8[facility] Monocytes/100 WBC Auto (Bld)Ordered By: Luther Morris on 93-96-0742Bjigdlzuh/100 WBC (Bld)10.7 %1.7-12.0[facility] HospitalNeutrophils Auto (Bld) [#/Vol]Ordered By: Luther Morris on 24-92-6567Adqbpylrpgs (Bld) [#/Vol]4.0 10 3/uL1.4-6.5FJoint Township District Memorial HospitalNeutrophils/100 WBC Auto (Bld) Ordered By: Luther Morris on 17-42-7434Aqreqmztymt/100 WBC (Bld)60.3 %43.0-75.0 [facility] HospitalNo Panel InformationOrdered By: Luther Morris on 30-82-0132Gimgmrkzwye # (Auto)0.1 10 3/uL0.0-0.7FJoint Township District Memorial HospitalImmature Granulocyte # (Auto)0.03 10 3/uL0.00-0.03[facility] HospitalPlatelet mean volume Auto (Bld) [Entitic vol]Ordered By: Luther Morris on 40-59-0413Njrlclth mean volume (Bld) [Entitic vol]10.7 fL9.5-13.5 [facility] HospitalPlatelets Auto (Bld) [#/Vol]Ordered By: Luthre Morris on 98-31-0840Ucajkgnxk (Bld) [#/Vol]300 10 3/lG286-453KkodifgurCleveland Clinic Union HospitalRBC Auto (Bld) [#/Vol]Ordered By: Luther Morris on 39-69-7550VIG (Bld) [#/Vol]5.36 10 6/uL4.70-6.10[facility] HospitalReticulocytes/100 RBC Auto (Bld)Ordered By: Luther Morris on 11-18-2024 Reticulocytes/100 RBC (Bld)2.98 %0.60-3.10[facility] Basophils Auto (Bld) [#/Vol]Ordered By: Luther Morris on 21-44-1803Oexdvqapi (Bld) [#/Vol]0.0 10 3/uL0.0-0.1FJoint Township District Memorial HospitalBasophils/100 WBC Auto (Bld)Ordered By: Luther Morris on 79-25-1525Lmsxkbdzv/100 WBC (Bld)0.5 %0.2-2.0[facility] HospitalEosinophils/100 WBC Auto (Bld)Ordered By: Luther Morris on 10-02-7407Cgbfsawlgjh/100 WBC (Bld)0.9 %0.9-7.0[facility] HospitalErythrocyte distribution width Auto (RBC) [Ratio]Ordered By: Luther Morris on 11-51-2720Dohjqfeucbs distribution width (RBC) [Ratio]17.1 %High11.0-15.0[facility] HospitalFibrin D-dimer [Presence] in Platelet poor plasma by Latex agglutinationOrdered By: Luther Morris on 83-71-5654Ipmkaj D-dimer LA Ql (PPP)0.19 mg/L FEU<=0.59[facility] HospitalComment on above:Increases in D-Dimer concentration observed [...] Calc (S) [Mass/Vol]Ordered By: Luther Morris on 33-43-5410Sybsgbut (S) [Mass/Vol]3.7 g/dLCleveland Clinic Union Hospital Glomerular filtration rate (GFR) estimation in non- AmericanOrdered By: Luther Morris on 37-25-7043NHX/1.73 sq M.predicted among non-blacks MDRD (S/P/Bld) [Vol rate/Area]mL/min/{1.73_m2}>=60 mL/min/1.73m 2FJoint Township District Memorial HospitalHematocrit Auto (Bld) [Volume fraction]Ordered By: Luther Morris on 58-69-7637Lmwteszsjf (Bld) [Volume fraction]35.9 %Low42.0-54.0[facility] HospitalHemoglobin [Mass/volume] in BloodOrdered By: Luther Morris on 55-77-5967Emjvyupngc (Bld) [Mass/Vol]10.9 g/dLLow14.0-18.0[facility] HospitalLaboratory - Chemistry and Chemistry - challengeOrdered By: Luther Morris on 46-89-4687Tbnoxxc [Mass/Vol]3.8 g/dL3.4-5.0[facility] HospitalALP [Catalytic activity/Vol]84 U/Y07-967RhjbchficCleveland Clinic Union HospitalALT [Catalytic activity/Vol]33 U/Y90-81CoilsikvqCleveland Clinic Union HospitalAST [Catalytic activity/Vol]21 U/N86-61IeikjzmebCleveland Clinic Union HospitalBilirubin [Mass/Vol]0.6 mg/dL0.2-1.0[facility] Calcium [Mass/Vol]8.6 mg/dL8.5-10.1FJoint Township District Memorial HospitalChloride [Moles/Vol]102 mmol/X91-176XpjnfrahyCleveland Clinic Union HospitalCO2 [Moles/Vol]24.6 mmol/L21.0-32.0[facility] HospitalCreatinine [Mass/Vol]1.10 mg/dL 0.70-1.30[facility] HospitalGFR/1.73 sq M.predicted MDRD (S/P/Bld) [Vol rate/Area]mL/min/{1.73_m2}>=60 mL/min/1.73m 2FJoint Township District Memorial HospitalGlucose [Mass/Vol]152 mg/pJTurl17-856HshhkvslfC[facility] Clinic [facility] Hospital Potassium [Moles/Vol]3.3 mmol/LLow3.5-5.1FJoint Township District Memorial Hospital Protein [Mass/Vol]7.5 g/dL6.4-8.2FCincinnati Shriners Hospitalodium [Moles/Vol]134 mmol/QVox981-629VhsmlgawhCleveland Clinic Union HospitalTSH Qn1.168 m[IU]/L0.358-3.740[facility] HospitalUrea nitrogen [Mass/Vol]13.0 mg/dL7.0-18.0[facility] HospitalUrea nitrogen/Creatinine [Mass ratio]11.8 mg/mgCleveland Clinic Union HospitalLaboratory - Hematology and Cell countsOrdered By: Luther Morris on 68-33-9393Efsspluk granulocytes/100 WBC (Bld)0.4 %0.0-0.5FJoint Township District Memorial HospitalLeukocytes [#/volume] corrected for nucleated erythrocytes in Blood by Automated counOrdered By: Luther Morris on 88-64-2007QEP corrected for nucl RBC Auto (Bld) [#/Vol]5.7 10 3/uL4.0-11.0[facility] HospitalLymphocytes Auto (Bld) [#/Vol] Ordered By: Luther Morris on 29-22-3588Rshelbvooop (Bld) [#/Vol]1.7 10 3/uL 1.2-3.8[facility] HospitalLymphocytes/100 WBC Auto (Bld)Ordered By: Luther Morris on 36-24-2517Ovhvkljfjus/100 WBC (Bld)29.8 %20.5-60.0[facility] HospitalMCH Auto (RBC) [Entitic mass]Ordered By: Luther Morris on 35-08-6176ABK (RBC) [Entitic mass]22.2 pgLow25.9-34.0[facility] HospitalMCHC Auto (RBC) [Mass/Vol]Ordered By: Luther Morris on 11-04-2024 MCHC (RBC) [Mass/Vol]30.4 g/dL29.9-35.2FNationwide Children's HospitalV Auto (RBC) [Entitic vol]Ordered By: Luther Morris on 62-96-0087CPY (RBC) [Entitic vol]73.3 fLLow80.0-94.0[facility] HospitalMonocytes Auto (Bld) [#/Vol]Ordered By: Luther Morris on 62-56-2832Clqepyddy (Bld) [#/Vol]0.4 10 3/uL 0.3-0.8[facility] HospitalMonocytes/100 WBC Auto (Bld)Ordered By: Luther Morris on 20-74-6091Nblszvaxr/100 WBC (Bld)7.8 %1.7-12.0[facility] HospitalNeutrophils Auto (Bld) [#/Vol]Ordered By: Luther Morris on 43-84-8480Orknejgugeo (Bld) [#/Vol]3.4 10 3/uL1.4-6.5FJoint Township District Memorial HospitalNeutrophils/100 WBC Auto (Bld)Ordered By: Luther Morris on 24-37-0113Gzsuvyxlybb/100 WBC (Bld)60.6 %43.0-75.0[facility] HospitalNo Panel InformationOrdered By: Luther Morris on 59-24-2518Vyxsasdktme # (Auto)0.1 10 3/uL0.0-0.7FJoint Township District Memorial HospitalImmature Granulocyte # (Auto)0.02 10 3/uL0.00-0.03[facility] HospitalProstate Specific Antigen Screen1.46 ng/mL<=4.00[facility] HospitalTroponin I High Sensitivity8.3 pg/mL4.0-76.1FJoint Township District Memorial HospitalComment on above: CUT-OFF POINTS HAVE BEEN [...] (Bld) [Entitic vol]Ordered By: Luther Morris on 85-34-7033Siysojay mean volume (Bld) [Entitic vol]10.7 fL 9.5-13.5FJoint Township District Memorial HospitalPlatelets Auto (Bld) [#/Vol]Ordered By: Luther Morris on 88-66-7163Tzbmmglli (Bld) [#/Vol]348 10 3/vU150-652JfmcmbpwdCleveland Clinic Union HospitalRBC Auto (Bld) [#/Vol]Ordered By: Luther Morris on 86-04-4222IER (Bld) [#/Vol]4.90 10 6/uL4.70-6.10WVUM[facility] Hospitalerum or plasma albumin/globulin mass ratioOrdered By: Luther Morris on 86-54-8426Cittacw/Globulin [Mass ratio]1.0 {ratio}[facility] Hospitalerum or plasma anion gap determinationOrdered By: Luther Morris on 52-88-5099Raqes gap [Moles/Vol]10.7 mmol/LFJoint Township District Memorial HospitalBasic Metabolic Raygoza w/Rfx A1Con 00-51-3743NUT/1.73 sq M.predicted MDRD (S/P/Bld) [Vol rate/Area]mL/min/{1.73_m2}NormalThe Unc Health Blue Ridge - Valdese Physician GroupComment on above: Performed By: #### REVA LIPID, EMP BMP #### [facility] [address] [place] [address] USACalcium [Mass/volume] in Serum or PlasmaOrdered By: Jorge David on 11-15-0117Ipussoy [Mass/Vol]9.4 mg/dL8.6-10.3FJoint Township District Memorial HospitalComment on above:Performed By: #### EBS LIPID, EMP BMP #### [facility] [address] [place] [address] USACarbon dioxide, total [Moles/volume] in Serum or Plasma Ordered By: Jorge David on 58-51-5570XD8 [Moles/Vol]25.7 mmol/L21.0-31.0 [facility] HospitalComment on above:Performed By: #### EBS LIPID, EMP BMP #### [facility] [address] [place] [address] USAChloride [Moles/volume] in Serum or PlasmaOrdered By: Jorge David on 34-56-1663Skdxiqvl [Moles/Vol]105 mmol/E01-437GrbznuwjrCleveland Clinic Union HospitalComment on above:Performed By: #### EBS LIPID, EMP BMP #### [facility] [address] [place] [address] USACholesterol [Mass/volume] in Serum or PlasmaOrdered By: Jorge David on 64-23-2368Pygswoexjpx [Mass/Vol]205 mg/eQGbqy246-032IitaiabitCleveland Clinic Union HospitalComment on above:Chol less than 200 mg/dl low riskChol 201-239 mg/dl borderline riskChol 240 mg/dl and greater high riskResult Comment: Chol less than 200 mg/dl low risk Chol 201-239 mg/dl borderline risk Chol 240 mg/dl and greater high riskPerformed By: #### EBS LIPID, EMP BMP #### [facility] [address] [place] [address] USACholesterol in HDL [Mass/volume] in Serum or PlasmaOrdered By: Jorge David on 57-82-6388Zbxofdtktwf in HDL [Mass/Vol]46 mg/dL23-92 [facility] HospitalComment on above:HDL CHOL ATP-III CLASSIFICATION Cardiovascular RiskHDL > or equal to 60 mg/dL LOWHDL < 40 mg/dL HIGHResult Comment: HDL CHOL ATP-III CLASSIFICATION Cardiovascular Risk HDL > or equal to 60 mg/dL LOW HDL < 40 mg/dL HIGHPerformed By: #### EBS LIPID, EMP BMP #### [facility] [address] [place] [address] USACholesterol in LDL Calc [Mass/Vol]Ordered By: Jorge David on 30-47-5810Lxpxnxhxtfs in LDL [Mass/Vol]126 mg/dLHigh0-100[facility] HospitalComment on above:LDL ATP III CLASSIFICATIONLDL less than 100 mg/dL OptimalLDL 100-129 mg/dL Near or above kueikozGUE998-910 mg/dL Borderline highLDL 160-189 mg/dL HighLDL greater than 189 mg/dL Very high Cholesterol in VLDL Calc [Mass/Vol]Ordered By: Jorge David on 10-10-2024 Cholesterol in VLDL [Mass/Vol]32 mg/dLCleveland Clinic Union Hospital Creatinine [Mass/volume] in Serum or PlasmaOrdered By: Jorge David on 66-46-1533Uggnjqjcqc [Mass/Vol]1.05 mg/dL0.70-1.30[facility] HospitalComment on above:Performed By: #### EBS LIPID, EMP BMP #### [facility] [address] [place], [place] [address] USAGlomerular filtration rate [Volume Rate/Area] in Serum, Plasma or Blood by CreatinineOrdered By: Jorge David on 26-10-3365Rofrouvmwt filtration rate [Volume Rate/Area] in Serum, Plasma or Blood by Creatinine> 60.0 mL/MinCleveland Clinic Union HospitalGlucose [Mass/volume] in Serum or Plasma Ordered By: Jorge David on 54-89-8019Yzpyvtt [Mass/Vol]93 mg/fT14-144FvlbachdyCleveland Clinic Union HospitalComment on above:Performed By: #### EBS LIPID, EMP BMP #### [facility] [address] [place] [address] USALipid Profileon 60-94-8007RCE Cholesterol,Vzrkexyigv245 mg/dLHigh0-100The [facility] - Valdese Physician GroupComment on above:Result Comment: LDL ATP III CLASSIFICATION LDL less than 100 mg/dL Optimal LDL 100-129 mg/dL Near or above optimal LDL 130-159 mg/dL Borderline high LDL 160-189 mg/dL High LDL greater than 189 mg/dL Very highPerformed By: #### EBS LIPID, EMP BMP #### [facility] [address] [place] [address] USATriglyceride w/Soqrry436 mg/dLHigh0-149The [facility] - Valdese Physician GroupComment on above:Result Comment: TRIG ATP III CLASSIFICATION TRIG less than 150 mg/dL Normal TRIG 150-199 mg/dL Borderline high TRIG 200-500 mg/dL High TRIG greater than 500 mg/dL Very high Standard traceable to the Center for Disease Conrtrol and Prevention (CDC) test method.Performed By: #### EBS LIPID, EMP BMP #### [facility] [address] [place] [address] USAVLDL LVQBCJFOOIN06 mg/dLNoCentral Harnett Hospital Physician GroupComment on above:Performed By: #### EBS LIPID, EMP BMP #### [facility] [address] [place] [address] USANo Panel InformationOrdered By: Jorge David on 57-14-7279Qryftuao Creatinine Clearance (ChemN/[facility] Medical CenterPotassium [Moles/volume] in Serum or PlasmaOrdered By: Jorge David on 24-29-2483Vzxudzgrq [Moles/Vol]4.6 mmol/L3.5-5.1FJoint Township District Memorial HospitalComment on above:Performed By: #### REVA LIPID, EMP BMP #### [place] [address] USASerum or plasma anion gap determinationOrdered By: Jorge David on 39-81-9876Megnb gap [Moles/Vol]10.9 mmol/L6.0-15.0Cleveland Clinic Union HospitalComment on above:Performed By: #### EBS LIPID, EMP BMP #### [place] [address] USASerum or plasma total cholesterol/high density lipoprotein (HDL) cholesterol mass ratOrdered By: Jorge David on 10-10-2024 Cholesterol.total/Cholesterol in HDL [Mass ratio]4.5 {ratio}<5.0Cleveland Clinic Union HospitalComment on above:Result Comment: PERFORMED BY: [place] [address] PATHOLOGIST CASE PACKER WENDI KAYE M.D.Performed By: #### EBS LIPID, EMP BMP #### [place] [address] USASodium [Moles/volume] in Serum or PlasmaOrdered By: Jorge David on 86-79-6471Fenpgb [Moles/Vol]137 mmol/D995-331LimzeolnaCleveland Clinic Union HospitalComment on above:Performed By: #### EBS LIPID, EMP BMP #### [facility] [address] [place] [address] USATriglyceride [Mass/volume] in Serum or PlasmaOrdered By: Jorge David on 94-23-7956Sfeqcqkdlgis [Mass/Vol]164 mg/dLHigh0-149Cleveland Clinic Union HospitalComment on above:TRIG ATP III CLASSIFICATIONTRIG less than 150 mg/dL NormalTRIG 150-199 mg/dL Borderline highTRIG 200-500 mg/dL High TRIG greater than 500 mg/dL Very highStandard traceable to the Center for Disease Conrtrol and Prevention (CDC) test method.Urea nitrogen [Mass/volume] in Serum or PlasmaOrdered By: Jorge David on 31-65-2452Qgqv nitrogen [Mass/Vol] 14 mg/dL7-25Cleveland Clinic Union HospitalComment on above:Performed By: #### EBS LIPID, EMP BMP #### [facility] [address] [place] [address] USAXR Pelvis and Hip - left 2 Viewson 83-63-6189VQ and lateral x-rays left hip reviewed stable appearing joint space no acute osseous abnormalities this is my independent interpretation.MANUALLY TRANSCRIBED RESULTSMercy Health Willard Hospital GILUPI Veterans Affairs Medical CenterRadiology Study observation (narrative)[facility] Memorial HospitalEmulate Veterans Affairs Medical CenterCT HIP LT WO CONTon 40-95-7146VB HIP LT WO CONTCT HIP LT WO [...] Ricketts MD on 03/10/2024 5:58 [facility] TroyMR ARTHROGRAM HIP LT W CONTon 58-94-8427DV ARTHROGRAM HIP LT W CONTMR ARTHROGRAM HIP [...] Cornelius MD on 01/22/2024 9:49 [facility] TroyFL [facility] ARTHROGRAM HIP LT W INJon [id number] MR/CT ARTHROGRAM HIP LT W INJFL MR/CT [...] Vera MD on 01/21/2024 3:00 [facility] TroyXR Pelvis and Hip - left 2 Viewson 50-54-2780JX, 45 degree Flowers lateral, and false profile x-rays of the left hip were obtained in the office today. 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 Tonus grade 1 no acute osseous abnormalities. MANUALLY TRANSCRIBED [facility] WayneRadiology Study observation (narrative)[facility] 21-86-0081DWMIHmqzrz Visit (GENSMN) HENRIK MENJIVAR ([id number]) 1975 M Date Time Provider Department 09/10/23 [...] Brad Hanna MD 09/14/2023 2:54 PM Signed [facility] Abdominal [facility] - HISTORY AND PHYSICAL Chief Complaint: [...] no inguinal hernia found US - 08/15/23 Rtee-ye-xxfrxbhb tendinosis adductor origin without tear or hyperemia. [...] Order(s):CONSULT TO PHYSICAL THERAPY [9032] Order #: [id number]: 1 FUTURE Prescriptions as of 09/14/2023 - [...] you had unintention (more content not included)...NormalOhiohealth Hardin Memorial HospitalUS HIP LTon 99-41-0556TZ HIP LT* * *Final Report* * * [...] with mild hyperemia. No joint effusion. IMPRESSION: Ehex-wp-oppflptj tendinosis adductor origin without tear or hyperemia. Synovial thickening of the anterior hip joint with mild hyperemia. Stage Builder: [facility] Transcribe Date/Time: Aug 15 2023 1:52P Dictated by : SARAH GARDNER MD This examination was interpreted and the report reviewed and electronically signed by: SARAH GARDNER MD on Aug 15 2023 1:58PM EST [id number] Clinic Euclid Hospital Hip - lefton 08-15-2023 IMPRESSION: Phwi-xq-buidfarf tendinosis adductor origin without tear or hyperemia. Synovial thickening of the anterior hip joint with mild hyperemia. Stage Builder: [facility] Transcribe Date/Time: Aug 15 2023 1:52P [...] hyperemia. No joint effusion. DIVISION OF RADIOLOGYProvider, [facility] [place] - 08/15/2023 * * *Final Report* * [...] mild hyperemia. No joint effusion. IMPRESSION IMPRESSION: Jtvz-ri-qkhlmsrk tendinosis adductor origin without tear or hyperemia. Synovial thickening of the anterior hip joint with mild hyperemia. Stage Builder: [facility] Transcribe Date/Time: Aug 15 2023 1:52P Dictated by : SARAH GARDNER MD This examination was interpreted and the report reviewed and electronically signed by: SARAH GARDNER MD on Aug 15 2023 1:58PM EST [facility] HospitalRadiology Study observation (narrative)[facility] Hip - leftOrdered By: Ccf Provider on 06-57-7267Cvyilfzmg ClinicCNPNon 71-17-3328NITI Telephone (RULTTB) HENRIK MENJIVAR ([id number]) 1975 M Date Time Provider Department 07/11/23 [facility] During your visit today, we recorded [...] (None) Encounter Status:Closed by NATALIA OLIVEIRA on 07/11/23NoLakeHealth [facility] 83-64-6731RPHKOqngjq Visit (NELDA) ANJUMHENRIK Marrero ([id number]) 1975 M Date Time Provider Department 07/10/23 [...] Filomena Arreola MD 07/10/2023 11:12 AM Signed [facility] Abdominal [facility] - HISTORY AND PHYSICAL Chief Complaint: [...] chronic pain management Plan (more content not included)...NormalMercy Health St[facility] PHYSICALon 59-71-3885EGSHSOJ PHYSICALHNO ID: [id number] Author: FILOMENA ARREOLA MD Service: ? Author Type: Resident Type: H&P Filed: 07/10/2023 11:12 Note Text: [facility] for Abdominal [facility] - HISTORY AND PHYSICAL Chief Complaint: [...] General Surgery Resident, PGY-1 07/10/2023 10:23 AMNormalOhiohealth Hardin Memorial HospitalMR PELVIS WO W CONon 20-01-9901TJA PELVIS WO W CONEXAMINATION: MRI PELVIS WO [...] Electronically authenticated by: BRAD NEW Date: 2021-12-16 15:05[facility]CT [facility]PELV W CONon 20-18-9206GM ABD/PELV W CONEXAMINATION: CT ABD/PELV W CON, [...] Electronically authenticated by: BRAD NEW Date: 2021-06-17 16:50NoNor[facility] AUTO DIFFon 54-84-2913XBCI #0.0 103/ulNormal0.0-0.1[facility] Medical CenterComment on above:Performed By: #### CBC #### [facility] [address] [place] [address] Dr. Gala JohnsonBasophils/100 WBC (Bld)0.6 %Normal0.2-2.0[facility] Comment on above:Performed By: #### CBC #### [facility] [address] [place] [address] Dr. Gala Manuel #0.1 103/ulNormal0.0-0.7The [facility] HospitalComment on above: Performed By: #### CBC #### [facility] [address] [place] [address] Dr. Gala Lopezosinophils/100 WBC (Bld)1.2 %Normal0.9-7.0[facility] Comment on above:Performed By: #### CBC #### [facility] [address] [place] [address] Dr. Gala Lopezrythrocyte distribution width (RBC) [Ratio]13.1 %Gpclzk75.0-15.0 The [facility] County HospitalComment on above:Performed By: #### CBC #### [facility] [address] [place] [address] Dr. Gala JohnsonHematocrit (Bld) [Volume fraction]49.3 %Ojalcc37.0-54.0The [facility] HospitalComment on above:Performed By: #### CBC #### [facility] [address] [place] [address] Dr. Gala JohnsonHemoglobin (Bld) [Mass/Vol]15.8 g/gMIkkudj23.0-18.0The [facility] HospitalComment on above:Performed By: #### CBC #### [facility] [address] [place] [address] Dr. Gala Stone #0.02 10e3/ulNormal0.00-0.03The [facility] HospitalComment on above:Performed By: #### CBC #### [facility] [address] [place] [address] Dr. Gala Stone %0.3 %Normal0.0-0.5The [facility] HospitalComment on above: Performed By: #### CBC #### [facility] [address] [place] [address] Dr. Gala Keen #2.3 103/ulNormal1.2-3.8The [facility] HospitalComment on above:Performed By: #### CBC #### [facility] [address] [place] [address] Dr. Gala Bellhocytes/100 WBC (Bld)33.5 %Lwqdml06.5-60.0The [facility] HospitalComment on above:Performed By: #### CBC #### [facility] [address] [place] [address] Dr. Gala VargasUAL DIFF REQNONormalThe [facility] HospitalComment on above: Performed By: #### CBC #### [facility] [address] [place] [address] Dr. Gala Watts (RBC) [Entitic mass]30.3 flDgyfys07.9-34.0The [facility] HospitalComment on above:Performed By: #### CBC #### [facility] [address] [place] [address] Dr. Gala Watts (RBC) [Mass/Vol]32.0 g/vOOyuipp19.9-35.2The [facility] HospitalComment on above:Performed By: #### CBC #### [facility] [address] [place] [address] Dr. Gala Fagan (RBC) [Entitic vol]94.4 fLCritically high80.0-94.0The [facility] HospitalComment on above:Performed By: #### CBC #### [facility] [address] [place] [address] Dr. Gala Yepez #0.6 103/ulNormal0.3-0.8The [facility] HospitalComment on above:Performed By: #### CBC #### [facility] [address] [place] [address] Dr. Gala Randleocytes/100 WBC (Bld)8.3 %Normal1.7-12.0The [facility] Comment on above:Performed By: #### CBC #### [facility] [address] [place] [address] Dr. Gala Ochoa #3.8 103/ulNormal1.4-6.5The [facility] HospitalComment on above:Performed By: #### CBC #### [facility] [address] [place] [address] Dr. Gala Boswellutrophils/100 WBC (Bld)56.1 %Ohlsmg93.0-75.0The [facility] HospitalComment on above:Performed By: #### CBC #### [facility] [address] [place] [address] Dr. Gala Johnsonlet mean volume (Bld) [Entitic vol]11.9 fLNormal9.5-13.5The [facility] HospitalComment on above:Performed By: #### CBC #### [facility] [address] [place] [address] Dr. Gala JohnsonPLT246 103/dqPywbbz577-921Gbk [facility] HospitalComment on above: Performed By: #### CBC #### [facility] [address] [place] [address] Dr. Gala JohnsonRBC5.22 106/ulNormal4.70-6.10The [facility] on above:Performed By: #### CBC #### [facility] [address] [address] [address] Gala JohnsonWBC6.8 103/ulNormal4.0-11.0[facility] on above: Performed By: #### CBC #### [facility] [address] [address] [address] Gala JohnsonGLYCOHEMOGLOBIN A1Con 70-29-4207JPA RECOMMENDATIONSEE [facility] SystemComhenry [facility] on above:Result Comment: ADA RECOMMENDED LIMIT 4.0 - 6.0 ADA THERAPEUTIC TARGET < 7.0 ACTION SUGGESTED > 7.0Performed By: #### A1C #### [facility] [address] [place] [address] Dr. Gala JohnsonGlucose [Mass/Vol]117 mg/dLNoOhioHealth Arthur G.[facility], [facility] on above:Performed By: #### A1C #### [facility] [address] [place] [address] Dr. Gala JohnsonHbA1c (Bld) [Mass fraction]5.7 %Normal4.5-6.2[facility] on above:Performed By: #### A1C #### [facility] [address] [place] [address] Dr. Gala JohnsonLIPID PROFILEon 90-14-5160WPLL-HDL RATIO NORMSEE [facility] CenterComhenry [facility] on above:Result Comment: 3.3 - 4.4 LOW RISK 4.4 - 7.1 AVERAGE RISK 7.1 - 11.0 MODERATE RISK >11.0 HIGH RISKPerformed By: #### LIPID, TSH, CMP #### [facility] [address] [place] [address] Dr. Gala JohnsonCholesterol [Mass/Vol]236 mg/dLCritically high<=200[facility] on above:Performed By: #### LIPID, TSH, CMP #### [facility] [address] [place] [address] Dr. Gala JohnsonCholesterol in HDL [Mass/Vol]47 mg/jKUkfudu52-69HbvTriHealth McCullough-[facility] Hospital on above:Performed By: #### LIPID, TSH, CMP #### [facility] [address] [place] [address] Dr. Gala JohnsonCholesterol in LDL [Mass/Vol]134.0 mg/dLNoMount Carmel Health SystemComhenry ford mac[facility] hospital on above:Performed By: #### LIPID, TSH, CMP #### [facility] [address] [place] [address] Dr. Gala Ludwigesterbrian.total/Cholesterol in HDL [Mass ratio]5.0 {ratio} NormalThe [facility] on above:Performed By: #### LIPID, TSH, CMP #### [facility] [address] [place] [address] Dr. Gala Pulido NORMAL> or = 60 mg/dl - LOW CARDIOVASCULAR RISK <40 mg/dl - HIGH CARDIOVASCULAR RISKNoMount Carmel Health SystemComhenry [facility] hospital on above:Performed By: #### LIPID, TSH, CMP #### [facility] [address] [place] [address] Dr. Gala Martines CALC NORMALSEE BELOWProvidence HospitalComhenry ford macomb hospital on above:Result Comment: <100 mg/dl OPTIMAL 100 - 129 mg/dl NEAR OR ABOVE OPTIMAL 130 - 159 mg/dl BORDERLINE HIGH 160 - 189 mg/dl HIGH >190 mg/dl VERY HIGH Performed By: #### LIPID, TSH, CMP #### [facility] [address] [place] [address] Dr. Gala JohnsonTriglyceride [Mass/Vol]275 mg/dLCritically high<=150[facility] on above:Performed By: #### LIPID, TSH, CMP #### [facility] [address] [place] [address] Dr. Gala JohnsonVLDL CALC55.0 mg/dLNoOhioHealth [facility] on above: Performed By: #### LIPID, TSH, CMP #### [facility] [address] [place] [address] Dr. Gala JohnsonPROVinod 14(COMP METB)on 71-87-5650Vnfjoyq [Mass/Vol]4.2 g/dLNormal 3.4-5.0The [facility] HospitalComment on above:Performed By: #### LIPID, TSH, CMP #### [facility] [address] [address] [address] Gala JohnsonAlbumin/Globulin [Mass ratio]1.2 {ratio}NormalThe [facility] HospitalComment on above:Performed By: #### LIPID, TSH, CMP #### [facility] [address] [address] [address] Gala JacobsenP [Catalytic activity/Vol]72 U/OVlaiog08-792Rxf [facility] HospitalComment on above:Performed By: #### LIPID, TSH, CMP #### [facility] [address] [place] [address] Dr. Gala Culver [Catalytic activity/Vol]30 U/ZMufsdk12-12Lkv [facility] HospitalComment on above:Performed By: #### LIPID, TSH, CMP #### [facility] [address] [address] [address] Gala Piña gap [Moles/Vol]11.7 mmol/LNormalThe [facility] Comment on above:Performed By: #### LIPID, TSH, CMP #### [facility] [address] [place] [address] Dr. Gala JohnsonAST [Catalytic activity/Vol]18 U/HIawkmg24-60Nax [facility] HospitalComment on above:Performed By: #### LIPID, TSH, CMP #### [facility] [address] [address] [address] Gala JohnsonBilirubin [Mass/Vol]0.7 mg/dLNormal0.2-1.0The [facility] Comment on above:Performed By: #### LIPID, TSH, CMP #### [facility] [address] [address] [address] Gala JohnsonCalcium [Mass/Vol]8.6 mg/dLNormal8.5-10.1The [facility] Comment on above:Performed By: #### LIPID, TSH, CMP #### [facility] [address] [address] [address] Gala JohnsonChloride [Moles/Vol]101 mmol/MFtruvj23-691Ght [facility] Comment on above:Performed By: #### LIPID, TSH, CMP #### [facility] [address] [address] [address] Gala JohnsonCO2 [Moles/Vol]29.1 mmol/XRayahe55.0-32.0The [facility] Comment on above:Performed By: #### LIPID, TSH, CMP #### [facility] [address] [address] [address] Gala JohnsonCreatinine [Mass/Vol]0.91 mg/dLNormal0.70-1.30The [facility] HospitalComment on above:Performed By: #### LIPID, TSH, CMP #### [facility] [address] [place] [address] Dr. Gala LopezGFR-AF YEMENI>60Normal>=60The [facility] HospitalComment on above:Performed By: #### LIPID, TSH, CMP #### [facility] [address] [place] [address] Dr. Gala LopezGFR-NON AF YEMENI>60Normal>=60The [facility] HospitalComment on above:Performed By: #### LIPID, TSH, CMP #### [facility] [address] [place] [address] Dr. Gala JohnsonGlobulin (S) [Mass/Vol]3.4 g/dLNormalThe [facility] HospitalComment on above:Performed By: #### LIPID, TSH, CMP #### [facility] [address] [place] [address] Dr. Gala JohnsonGlucose [Mass/Vol]86 mg/qJHrhjqs87-240Znb [facility] Comment on above:Performed By: #### LIPID, TSH, CMP #### [facility] [address] [place] [address] Dr. Gala JohnsonPotassium [Moles/Vol]3.8 mmol/LNormal3.5-5.1The [facility] Comment on above:Performed By: #### LIPID, TSH, CMP #### [facility] [address] [place] [address] Dr. Gala JohnsonProtein [Mass/Vol]7.6 g/dLNormal6.1-8.2[facility] Comment on above:Performed By: #### LIPID, TSH, CMP #### [facility] [address] [place] [address] Dr. Gala JohnsonSodium [Moles/Vol]138 mmol/KRwmaqj141-904SruUniversity Hospitals Lake [facility] Medical Center Comment on above:Performed By: #### LIPID, TSH, CMP #### [facility] [address] [place] [address] Dr. Gala JohnsonUrea nitrogen [Mass/Vol]13.0 mg/dLNormal7.0-18.0[facility] Medical CenterComment on above:Performed By: #### LIPID, TSH, CMP #### [facility] [address] [place] [address] Dr. Gala Gomez nitrogen/Creatinine [Mass ratio]14.3 mg/mgNormalThMercy HealthComment on above:Performed By: #### LIPID, TSH, CMP #### [facility] [address] [place] [address] Dr. Gala Bee 63-98-3645TYE4.610 uIU/mLNormal0.470-4.680[facility] Medical CenterComment on above:Performed By: #### LIPID, TSH, CMP #### [facility] [address] [place] [address] Dr. [address] [facility] [address] HospitalComment on above: Result Comment: <0.34 UIU/ml HYPERTHYROID 0.34-5.60 UIU/ml EUTHYROID >5.60 UIU/ml HYPOTHYROIDPerformed By: #### LIPID, TSH, CMP #### [facility] [address] [place] [address] Dr. Gala Mojica RANDOM W/MICROSCOPICon 00-00-7013ULEJAOOYGFRJ SEENrmalNONE SEENUniversity Hospitals Lake West Medical CenterComment on above:Performed By: #### UAMIC #### [facility] [address] [address] [address] Gala JohnsonBilirubin Ql (U)NegativeNormalNEGPremier Health Comment on above:Performed By: #### UAMIC #### [facility] [address] [address] [address] Gala JohnsonCASTESSEI SEENNormalNONE SEENUniversity Hospitals Lake West Medical CenterComment on above:Performed By: #### UAMIC #### [facility] [address] [address] [address] Gala JohnsonClarity (U)CLEARNormalCLEARUniversity Hospitals Lake West Medical CenterComment on above: Performed By: #### UAMIC #### [facility] [address] [address] [address] Gala JohnsonColor (U)LT. YELLOWNormalYELLOWUniversity Hospitals Lake West Medical CenterComment on above:Performed By: #### UAMIC #### [facility] [address] [place] [address] Dr. Gala JohnsonCrystals LM Nom (Urine sed)NONE SEENNormalNONE SEENUniversity Hospitals Lake West Medical CenterComment on above:Performed By: #### UAMIC #### [facility] [address] [place] [address] Dr. Gala Cariaslial cells LM Ql (Urine sed)NONE SEENNormalNONE SEEN /RARE [facility] CenterComhenry [facility] on above:Performed By: #### UAMIC #### [facility] [address] [address] [address] Gala JohnsonGlucose Ql (U)NegativeNormalNEGATIVEUniversity Hospitals Lake West Medical CenterComment on above:Performed By: #### UAMIC #### [facility] [address] [place] [address] Dr. Gala JohnsonHemoglobin Ql (U)NegativeNormalNEGATIVEUniversity Hospitals Lake [facility] Center Comment on above:Performed By: #### UAMIC #### [facility] [address] [place] [address] Dr. Gala JohnsonKetones Ql (U)NegativeNormalNEGATIVEThe Nakul HospitalComment on above:Performed By: #### UAMIC #### [facility] [address] [address] [address] Gala JohnsonLEUKOCYTESNegativeNormalNEGATIVEThe [facility] HospitalComment on above:Performed By: #### UAMIC #### [facility] [address] [address] [address] Gala JohnsonMUCOUSNONE SEENNormalNONE SEENUniversity Hospitals Lake West Medical CenterComment on above:Performed By: #### UAMIC #### [facility] [address] [place] [address] Dr. Gala Ngotrite Ql (U)NegativeNormalNEGATIVEThe [facility] HospitalComment on above:Performed By: #### UAMIC #### [facility] [address] [place] [address] Dr. Gala JohnsonpH (U)6.5 [pH]Normal5-9The [facility] HospitalComment on above: Performed By: #### UAMIC #### [facility] [address] [place] [address] Dr. Gala JohnsonRBCNONE SEENAbnormal0-2The [facility] HospitalComment on above: Performed By: #### UAMIC #### [facility] [address] [place] [address] Dr. Gala JohnsonSPEC GRAVITY1.931Dkuqon3.005-<=1.025The [facility] HospitalComment on above:Performed By: #### UAMIC #### [facility] [facility] [address] [place] [address] Dr. Gala JohnsonUA PROTEINNegativeNormalNEGATIVE/ TRACEThe [facility] Comment on above:Performed By: #### UAMIC #### [facility] [address] [place] [address] Dr. Gala Hardingbilinogen Qn (U)0.2 {Tarun'U}/dLNormal0.2 - 1.0The [facility] HospitalComment on above:Performed By: #### UAMIC #### [facility] [address] [place] [address] Dr. Gala JohnsonWBCNONE SEENNormalNONE SEENUniversity Hospitals Lake West Medical CenterComment on above: Performed By: #### UAMIC #### [facility] [address] [place], [place] [address] Dr. Gala JohnsonCovid-19 PCR ([facility])on 10-65-0239JZBK-CoV-2 (COVID-19) RNA ABBY+probe Ql (Unsp spec)Not detectedNormalNOT DETECTEDThe [facility] Comment on above:Result Comment: When diagnostic testing is negative, the possibility of a false negative should be considered in the context of a patient's recent exposures and the presence of clinical signs and symptoms consistent with SARS-CoV-2. This test is not yet approved or cleared by the [place] Food and Drug Administration (FDA). This test was developed by [employer], [place], [place]. The performance characteristics of this test were validated by [facility]. The results are not intended to be used as the sole means for clinical diagnosis or patient management decisions. [facility] is authorized under Clinical Laboratory Improvement [...] for this test is supported by the Frame Repairer of Health and Human Service's declaration that [...] longer be used).Performed By: #### CVDTB #### [facility] [id number] Gala Johnson Vital Signs Date TimeVital SignValuePerforming VevuifdvlDbvbljox84-69-6168 15:12-0400Body .72 cmBenjamin Ball DO Work Phone: [facility]10-22-2025 15:12-0400 Body mass index (BMI) [Ratio]30.4 kg/m7Hzfiqydo Ball DO Work Phone: 1(419)[address] [place], [place] 6841310-22-2025 15:12-0400 Body sijyaz91.77 kgBenjamin Ball DO Work Phone: 1(419)[address] [place], [place] 6841310-22-2025 15:12-0400 Diastolic blood ejxokfey67 mm[Hg]Luther Ball DO Work Phone: 1(419)[address] [place], [place] 6841310-22-2025 15:12-0400 Heart rate87 /minBenjamin Ball DO Work Phone: 1(419)[address] [place], [place] 6841310-22-2025 15:12-0400 Respiratory rate12 /minBenjamin Ball DO Work Phone: 1(419)[address] [place], [place] 6841310-22-2025 15:12-0400 Systolic blood dfsjhalg860 mm[Hg]Luther Ball DO Work Phone: 1(419)[address] [place], [place] 6841309-23-2025 14:00-0400 Body usbjzl391.72 cmBenjamin Ball DO Work Phone: 1(419)[address] [place], [place] 6841309-23-2025 14:00-0400 Body mass index (BMI) [Ratio]29.8 kg/d9Mftzielc Ball DO Work Phone: 1(419)[address] [place], [place] 6841309-23-2025 14:00-0400 Body fzymdg56.01 kgBenjamin Ball DO Work Phone: 1(419)[address] [place], [place] 6841309-23-2025 14:00-0400 Diastolic blood ryxfewcg81 mm[Hg]Luther Ball DO Work Phone: 1(419)[address] [place], [place] 6841309-23-2025 14:00-0400 Heart ngrf216 /minBenjamin Ball DO Work Phone: 1(419)[address] [place], [place] 6841309-23-2025 14:00-0400 Respiratory rate12 /minBenjamin Ball DO Work Phone: 1(419)[address] [place], [place] 6841309-23-2025 14:00-0400 Systolic blood nnreekpm874 mm[Hg]Luther Morris DO Work Phone: [facility]07-14-2025 12:52-0400 Body gqrear586.7 Dustin Pierce MD Work Phone: [facility]07-14-2025 12:52-0400Body mass index (BMI) [Ratio]29.19 kg/m2Jeana Pierce MD Work Phone: [facility]07-14-2025 12:52-0400Body ttxurd26.09 kgJeana Pierce MD Work Phone: [facility]05-20-2025 12:27-0400Body fehvda666.7 Dustin Pierce MD Work Phone: [facility]05-20-2025 12:27-0400Body mass index (BMI) [Ratio]29.19 kg/m2Jeana Pierce MD Work Phone: [facility]05-20-2025 12:27-0400Body eosbwe07.09 kgJeana Pierce MD Work Phone: [facility]04-22-2025 14:09-0400Body ubclee816.7 Dustin Pierce MD Work Phone: [facility]04-22-2025 14:09-0400Body mass index (BMI) [Ratio]29.19 kg/m2Jeana Pierce MD Work Phone: [facility]04-22-2025 14:09-0400Body .09 kgJeana Pierce MD Work Phone: [facility]03-24-2025 10:55-0400Body qycnjg374.7 Dustin Pierce MD Work Phone: [facility]03-24-2025 10:55-0400Body mass index (BMI) [Ratio]29.19 kg/m2Jeana Pierce MD Work Phone: [facility]03-24-2025 10:55-0400Body .09 kgAnil Kari NICOLE Work Phone: [facility]11-05-2024 13:34-0500Body mnsmla439.3 cmAnil Kari NICOLE Work Phone: [facility]11-05-2024 13:34-0500Body mass index (BMI) [Ratio]28.65 kg/m2Anil Kari NICOLE Work Phone: [facility]11-05-2024 13:34-0500Body qkidgb13 kgAnil Kari NICOLE Work Phone: [facility]07-29-2024 10:31-0400Body qsoyjc663.7 cmBrad Hanna MD Work Phone: c[facility] HospitalYyarow26-49-9935 10:31-0400Body mass index (BMI) [Ratio]28.59 kg/f8ErlbyBrad Hanna MD Work Phone: c[facility] HospitalYhumel19-23-8981 10:31-0400Body temperature 98.29 [degF]Brad Hanna MD Work Phone: c[facility] HospitalErdpai74-58-6150 10:31-0400Body jvkyck36.28 kgBrad Hanna MD Work Phone: c[facility] HospitalQtrdfy37-54-1848 10:31-0400Diastolic blood bokxhgfp84 mm[Hg]Brad Hanna MD Work Phone: c[facility] HospitalJcvwcv06-89-3679 10:31-0400Heart rate75 /min Brad Hanna MD Work Phone: c[facility] HospitalSiirxp50-43-0285 10:31-0400Systolic blood woeuelce790 mm[Hg]Brad Hanna MD Work Phone: c[facility] HospitalHauodv03-30-2947 10:06-0400Body iicntv887.7 cmLuther Ann MD Work Phone: [facility]05-28-2024 10:06-0400Body mass index (BMI) [Ratio]27.83 kg/y3QtdahunrLuther Ann MD Work Phone: [phone]05-28-2024 10:06-0400Body temperature 97.59 [degF]Luther Ann MD Work Phone: [phone]05-28-2024 10:06-0400Body gmuihb60.01 kgBevikram Ann MD Work Phone: [facility]05-28-2024 10:06-0400Diastolic blood dbtombez59 mm[Hg]Luther Ann MD Work Phone: [facility]05-28-2024 10:06-0400Heart rate84 /min Luther Ann MD Work Phone: [phone]05-28-2024 10:06-0400Systolic blood zthxembq530 mm[Hg]Luther Ann MD Work Phone: [phone]08-11-2023 14:15-0400Body .72 cmBenjamin Ball Other [employer] Other 08-11-2023 14:15-0400Body mass index (BMI) [Ratio] 27.52 kg/g4Ntqswufs Ball Other [employer] Other 08-11-2023 14:15-0400Body koylyo76.1 kgBenjamin Ball Other [employer] Other 08-11-2023 14:15-0400Diastolic blood mm[Hg] Luther Morris Other [employer] Other 08-11-2023 14:15-0400Respiratory rate12 /minBenjamin Ball Other [employer] Other 08-11-2023 14:15-0400Systolic blood xvqrgxhy513 mm[Hg] Luther Morris Other [facility]Al[facility] SpeedDate Other Encounters Encounter DateEncounter TypeCare ProviderFacilityStart: 12-05-2024 End: 01-78-8439rzwektpchhWxvnqtk R NILLFacility: [place]walkStart: 12-05-2024 End: 67-10-8875Mwlture encounter procedureMichael R NILL [phone] [place] Start: 12-03-2024 End: 75-13-2772lhpalcvwmgTqvuutsd Ball DO Work Phone: -[facility] ClinicStart: 12-03-2024 End: 55-57-0430Yzlfswn encounter procedureBentoyin Morris DO-[facility] Work Phone: Start: 12-03-2024 End: 54-30-2168Pdldnbb encounter statusBentoyin Morris [facility] Healthtart: 10-50-7079nbitgtrdfqIjvmemq NILLFacility: Nisreentart: 01-12-1523rjcqhszavkEhnvoon NILLFacility:[facility] SystemthereseueStart: 95-90-6052Vlf-patient / Non-visitBentoyin Morris DO-[facility] [employer] Work Phone: Start: 11-04-2024 End: 61-73-7004llphlkjfcxZjbhvxtc Ball DO Work Phone: [facility] Work Phone: Start: 11-04-2024 End: 37-66-3465Biyquki encounter procedureBentoyin Morris DO-[facility] Work Phone: Start: 10-10-2024 End: 36-17-6954ajthpigtxiXkdxmpve Ball DO Work Phone: [facility] Work Phone: Start: 10-10-2024 End: 09-81-0356Hufuctjq Jalil David [facility] [address] Work Phone: start: 09-04-2024 End: 95-93-3972CiynqcuvnLojaohlb Wright TOMATO PULPER OPERATOR Work Phone: noms FB PTComment on above:Left hip pain (Primary Dx); Femoroacetabular impingement of left hip; Articular cartilage disorder of left hipStart: 09-02-2024 End: 59-76-3528AizwlekwaXpupmc Jeydesirae PTANOMS FB PTComment on above:Left hip pain (Primary Dx); Femoroacetabular impingement of left hip; Articular cartilage disorder of left hipStart: 08-29-2024 End: 38-60-4174JrcfjvdamRmbsuypm Lee TOMATO PULPER OPERATOR Work Phone: noms FB PTComment on above:Left hip pain (Primary Dx); Femoroacetabular impingement of left hip; Articular cartilage disorder of left hipStart: 08-25-2024 End: 52-56-1868Dwcawu outpatient visit 15 minutesAnil Gwen Pierce MD Work Phone: [facility] and Spine SurgeonsComment on above:Femoroacetabular impingement of left hip (Primary Dx) Start: 08-25-2024 End: 33-30-9169tmgeyebvbgTSET Gwen PIERCEUniversity Hospitals Health System Ambulatory PPGStart: 07-29-2024 End: 28-23-7276LyopswxyeWkxucxpw Lee TOMATO PULPER OPERATOR Work Phone: noms FB PTComment on above:Left hip pain (Primary Dx); Femoroacetabular impingement of left hip; Articular cartilage disorder of left hipStart: 07-29-2024 End: 02-63-3743Cxjbpz Onur Lee TOMATO PULPER OPERATOR Work Phone: noms FB PTStart: 07-29-2024 End: 19-10-5278Huxjhs Onur Lee TOMATO PULPER OPERATOR Work Phone: noms FB PTStart: 07-22-2024 End: 99-67-6842OyanbvefzZsynycvd Wright TOMATO PULPER OPERATOR Work Phone: NOMS FB PTComment on above:Left hip pain (Primary Dx); Femoroacetabular impingement of left hip; Articular cartilage disorder of left hipStart: 07-22-2024 End: 44-39-7757Hjmyxa Onur Lee TOMATO PULPER OPERATOR Work Phone: NOMS FB PTStart: 07-22-2024 End: 74-32-6230Morghi Onur Lee TOMATO PULPER OPERATOR Work Phone: NOMS FB PTStart: 07-18-2024 End: 52-13-0004Wipnhr flowspreetiKyian Savage PT Work Phone: NOMS FB PTStart: 07-18-2024 End: 59-94-7909Bivpif flowspreetiKyian Willis Hussein PT Work Phone: NOMS FB PTStart: 07-18-2024 End: 41-52-5974UkqjmbmtkRpjk J Hussein PT Work Phone: NOMS FB PTComment on above:Left hip pain (Primary Dx); Femoroacetabular impingement of left hip; Articular cartilage disorder of left hipStart: 07-10-2024 End: 26-38-0448XqvlkxcyxCucxoxyf Wright TOMATO PULPER OPERATOR Work Phone: NOMS FB PTComment on above:Left hip pain (Primary Dx); Femoroacetabular impingement of left hip; Articular cartilage disorder of left hipStart: 07-10-2024 End: 82-31-0536Lljdez Onur Lee TOMATO PULPER OPERATOR Work Phone: NOMS FB PTStart: 07-10-2024 End: 76-79-7356Wfzxzd Onur Lee TOMATO PULPER OPERATOR Work Phone: NOMS FB PTStart: 07-01-2024 End: 61-85-8246Imqluk flowspreetiKyian Savage PT Work Phone: NOMS FB PTStart: 07-01-2024 End: 66-00-8711Echqql flowsheetKyian J Hussein PT Work Phone: NOGS FB PTStart: 07-01-2024 End: 52-97-8366Clrycr follow up visit related to original pxAnil Gwen Kari NICOLE Work Phone: [facility] Spine SurgeonsComment on above:Postoperative visit (Primary Dx)Start: 07-01-2024 End: 68-07-7514LtsuzrxstUnab bop.fm Hussein PT Work Phone: NOEP FB PTComment on above:Left hip pain (Primary Dx); Femoroacetabular impingement of left hip; Articular cartilage disorder of left hipStart: 06-27-2024 End: 07-64-0858Czgltb [employer] GuardpreetiKyle bop.fm Hussein PT Work Phone: NOEM FB PTStart: 06-27-2024 End: 71-18-4988Ieeewy flowsAgeto Servicele bop.fm Hussein PT Work Phone: NOZL FB PTStart: 06-27-2024 End: 55-69-8464AwnndfynwJaxe NexGen Storagegs PT Work Phone: NOMS FB PTComment on above:Left hip pain (Primary Dx); Femoroacetabular impingement of left hip; Articular cartilage disorder of left hipStart: 06-24-2024 End: 83-49-3168UzbwtjpdsIqexlj Tattersall PTANOMS FB PTComment on above:Left hip pain (Primary Dx); Femoroacetabular impingement of left hip; Articular cartilage disorder of left hipStart: 06-24-2024 End: 89-15-7229Ayvnwp flowsheetMariah Tattersall PTANOMS FB PTStart: 06-24-2024 End: 56-98-9274Rwdepx flowsheetMariah Tattersall PTANOMS FB PTStart: 06-20-2024 End: 99-73-9632Xneezw flowsheetKyle J Hussein PT Work Phone: NOMS FB PTStart: 06-20-2024 End: 66-08-3939Dwgdjz flowsheetKyian J Hussein PT Work Phone: NOMS FB PTStart: 06-20-2024 End: 84-14-1407JhrgjmlbeQqop Alba Hussein PT Work Phone: NOMS FB PTComment on above:Left hip pain (Primary Dx); Femoroacetabular impingement of left hip; Articular cartilage disorder of left hipStart: 06-17-2024 End: 32-30-1114QsogcqqbjIxblgw Tatjrall PTANOMS FB PTComment on above:Left hip pain (Primary Dx); Femoroacetabular impingement of left hip; Articular cartilage disorder of left hipStart: 06-17-2024 End: 50-77-1942Bzuiyj flowsShahnaz Tattersall PTANOMS FB PTStart: 06-17-2024 End: 89-07-8158Svpcsr flowsheetLucy Tattersall PTANOMS FB PTStart: 06-13-2024 End: 35-67-9540Iokxji flowsheetKyle Alba Hussein PT Work Phone: NOMS FB PTStart: 06-13-2024 End: 41-63-5484Yiawtq flowsheetKyian Willis Hussein PT Work Phone: NOMS FB PTStart: 06-13-2024 End: 44-41-7306ZaeuymfviFdev Alba Hussein PT Work Phone: NOMS FB PTComment on above:Left hip pain (Primary Dx); Femoroacetabular impingement of left hip; Articular cartilage disorder of left hipStart: 06-03-2024 End: 21-69-4284Susjtz flowsheetKyle J Hussein PT Work Phone: NOMS FB PTStart: 06-03-2024 End: 74-90-2763Kzqgln flowsheetKyle J Hussein PT Work Phone: NOMS FB PTStart: 06-03-2024 End: 46-48-1852Yyugln follow up visit related to original pxJeana Pierce MD Work Phone: [facility] Spine SurgeonsComment on above:Left hip pain (Primary Dx)Start: 06-03-2024 End: 06-07-1620LiieekjyuvPvzv J Spriggs PT Work Phone: NOYI FB PTComment on above:Left hip pain (Primary Dx); Femoroacetabular impingement of left hip; Articular cartilage disorder of left hipStart: 05-21-2024 End: 35-18-8692Vlpgja OnlyLisa Linwood [facility] Spine SurgeonsComment on above:Femoroacetabular impingement of left hip (Primary Dx); 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Start: 05-21-2024 End: 10-52-7444Hlrttxsgtc and management of inpatientJEANA PIERCEProMedica Percival HospitalStart: 05-15-2024 End: 26-96-1350Dxzcqp Pj Pierce MD Work Phone: [facility] Spine SurgeonsComment on above:Femoroacetabular impingement of left hip (Primary Dx) Start: 05-07-2024 End: 24-17-2558Wymhkscmr to establishmentMetro Pat Phone Call Provider 1 Eugene Gill [facility]iumtart: 05-07-2024 End: 31-81-3000Lfgfynooaz and management of inpatientBENJAMIN E BALLProMedica Percival HospitalStart: 05-05-2024 End: 43-21-1914Qlajqt outpatient visit 25 minutesJeana Pierce MD Work Phone: [facility] Spine SurgeonsComment on above:Femoroacetabular impingement of left hip (Primary Dx) Start: 05-05-2024 End: 11-03-9658lfgyfccsjiJPKO K GUPTAProMedica [facility] PPGStart: 03-07-2024 End: 14-77-1193ixiwttsiefKULG K GUPTAProMedica [facility] HospitalStart: 01-23-2024 End: 85-31-1150Srlmuvjvp encounterJeana Pierce MD Work Phone: [facility] Spine SurgeonsStart: 01-21-2024 End: 87-93-8609ffgcgrvvaiLMKF [facility] Hospitaltart: 12-18-2023 End: 78-24-7918Aorzmw outpatient new 30 minutesJeana Pierce MD Work Phone: [facility] Spine SurgeonsComment on above:Femoroacetabular impingement of left hip (Primary Dx); Left hip pain; Femoral acetabular impingement; Pain of left hipStart: 16-22-4642Kxfrzzu encounter statusBenkarinaregan Morris DO Work Phone: [facility] Hospitaltart: 12-18-2023 End: 21-00-4967nmvhqzvrohVKWS [facility] PPGStart: 10-26-2023 End: 28-05-0067Rmzisa [employer] TOMATO PULPER OPERATOR Work Phone: NOMU FB PTStart: 10-26-2023 End: 55-05-2596Hgogsc [employer] TOMATO PULPER OPERATOR Work Phone: NOWF FB PTStart: 10-26-2023 End: 05-78-2280wgkdzfbykzJnjzblls Wright TOMATO PULPER OPERATOR Work Phone: NOCK FB PTComment on above:Right hip pain (Primary Dx); Femoral acetabular impingementStart: 10-23-2023 End: 53-44-7869kpfgexondgWwnbht [place]all PTANOMS FB PTComment on above:Right hip pain (Primary Dx); Femoral acetabular impingementStart: 10-23-2023 End: 89-86-8170Dvjajx flowsheetMariah Tattersall PTANOMS FB PTStart: 10-23-2023 End: 93-11-5850Pexysb flowsheetMariah Tattersall PTANOMS FB PTStart: 10-19-2023 End: 85-32-4852lykjtbpyrlOwvbtnzf Wright TOMATO PULPER OPERATOR Work Phone: NOYQ FB PTComment on above:Right hip pain (Primary Dx); Femoral acetabular impingementStart: 10-18-2023 End: 02-48-1416niofhutrhcLgvgicib Wright TOMATO PULPER OPERATOR Work Phone: NOOB FB PTComment on above:Right hip pain (Primary Dx); Femoral acetabular impingementStart: 10-18-2023 End: 50-75-3953Ywlgff Onur Lee TOMATO PULPER OPERATOR Work Phone: NOXA FB PTStart: 10-18-2023 End: 84-39-1051Wwsadm Onur Lee TOMATO PULPER OPERATOR Work Phone: NONR FB PTStart: 10-12-2023 End: 37-43-6129gqzrizkvhoTnug J Hussein PT Work Phone: noms FB PTComment on above:Right hip pain (Primary Dx); Femoral acetabular impingementStart: 10-11-2023 End: 23-75-0244pysvkykeksLksw J Hussein PT Work Phone: NOKP FB PTComment on above:Right hip pain (Primary Dx); Femoral acetabular impingementStart: 10-11-2023 End: 61-95-4540Ndtlhb flowsheetKyle J Hussein PT Work Phone: NOHO FB PTStart: 10-11-2023 End: 13-37-9730Guwejd flowsheetKyle J Hussein PT Work Phone: NOBC FB PTStart: 10-05-2023 End: 99-78-5705jqupgpqipbEtin J Hussein PT Work Phone: NOMS FB PTComment on above:Right hip pain (Primary Dx); Femoral acetabular impingementStart: 10-04-2023 End: 27-05-1164ucgxfysumjQbfw J Hussein PT Work Phone: NOMS FB PTComment on above:Right hip pain (Primary Dx); Femoral acetabular impingementStart: 10-04-2023 End: 72-11-0295Hvukfu flowsheetKyle J Hussein PT Work Phone: noms FB PTStart: 10-04-2023 End: 80-81-3026Ixbeqr flowsheetKyle J Hussein PT Work Phone: noms FB PTStart: 09-10-2023 End: 14-85-6141ssnkfysuhfTLBAC KRPATAFacility:[facility] Hospitaltart: 09-10-2023 End: 83-60-0087Rxuiyxx encounter procedureBrad Hanna MD Work Phone: General SurgeryComment on above:Pain in left hip (Primary Dx)Start: 08-15-2023 End: 28-62-7243hpoqtrhioyVUNMGAQF MILLERFacility:[facility] Hospitaltart: 08-15-2023 End: 43-35-9298Egbkiuswip hospital visit by physicianMer[facility] Christopher Work Phone: RadiologyComment on above:Left inguinal pain [R10.32] Start: 49-31-8463Opdtsffrc encounterAndrew CayetanoadiologyComment on above: AppointmentLeft inguinal pain (Primary Dx)Start: 07-10-2023 End: 81-79-6643Mgjuleq encounter procedureLuther Ann MD Work Phone: General SurgeryComment on above:Left inguinal pain (Primary Dx)Start: 07-10-2023 End: 98-42-7109ugssakfmsfAXODKHQS T. MILLERFacility:[facility] Start: 09-29-2022 End: 17-28-5212rygmqatbpmTpnwlgby Ball Other [facility] [employer] Other Start: 58-22-9352Snjmeqymj encounterBentoyin BallBROOKG [facility] ClinicStart: 09-25-2022 End: 46-11-4386neegujhmdxQkxqisrc Ball Other [facility] [employer] Other start: 34-29-5354Ydtesxixi for general adult medical examination without abnormal findingsLuther Morris Medical ClinicStart: 00-82-0779Mbcipjihp encounterBevikram Morris Medical ClinicStart: 09-22-2022 End: 08-52-9149husounbiuiGwyfmycv Ball Other rt [employer] Other Start: 93-29-9411Ersrgmhwl for general adult medical examination without abnormal findingsLuther Morris Medical ClinicStart: 70-88-2972Aafzprtc preventive med est patient 40-64yrsBevikram Morris Medical ClinicStart: 12-16-2021 End: 36-28-8924kqovamcblaQL BENJAMIN BALLFacility:M6Vpeat: 06-17-2021 End: 03-24-8717gtkpbunbcfCZ BENJAMIN BALLFacility:W3Lexmb: 62-31-1854Eyftlynnt for general adult medical examination without abnormal findingsDR LUTHER MORRIS [facility] Systemtart: 06-07-2021 End: 35-98-9401txzqqrmbpvMM BENJAMIN BALLFacility:X4Oyorx: 06-07-2021 End: 48-08-4280Vpncnuhwp for general adult medical examination without abnormal findingsDR LUTHER MORRISFacility:W4Evwoe: 02-15-2021 End: 69-74-5189cztxglwfbvHW BENJAMIN BALLFacility:I0Tsyoq: 26-96-4099yzwyercson DR LUTHER MORRISFacility:H1 Procedures DateProcedureProcedure DetailPerforming ClinicianStart: 73-86-0268Asjdbd-up visitFollow-upANIL K GUPTAStart: 33-48-4620Qg compl joint r-t w/image documentationBevikram Ann MD Work Phone: Start: 54-01-0290CqjmqassrblPlzftcq NILL Start: 69-89-3259SxhficuehqhQbuupsmo Lee LOIDA Work Phone: Start: 89-47-0780PljgqgqifbuKdrx Hussein PT Work Phone: Start: 57-22-6243JSH screeningDR LUTHER Stanton on above:Performed By: #### PSASC #### [facility] [address] [place] [address] Dr. Gala JohnsonAcetabular labrum tear (disorder)Oren RONDONL Plan of Treatment DateCare ActivityDetailAuthorStart: 97-30-3965Faccpmeoe for malignant neoplasm of colonNOMS HealthcareStart: 45-75-1139Nwclcjefn for malignant neoplasm of colonNOMS HealthcareStart: 38-54-6833Vrpqz BMI ScreeningAdult BMI Screening [facility] SystemStart: 45-63-0709Iepld BMI ScreeningAdult BMI Screening [facility] SystemStart: 56-69-9711Lucmfzt ScreeningTobacco Screening [facility] SystemStart: 12-75-1462Jtmpk BMI ScreeningAdult BMI Screening [facility] SystemStart: 08-82-4589Vttll BMI ScreeningAdult BMI Screening [facility] SystemStart: 35-46-1034Mstyody ScreeningTobacco Screening [facility] SystemStart: 33-58-6138Noagxtm ScreeningTobacco Screening [facility] SystemStart: 88-68-0211Hqqzr BMI ScreeningAdult BMI Screening [facility] SystemStart: 95-73-0324Akqrksm ScreeningTobacco Screening [facility] SystemStart: 45-28-7995Etkuj BMI ScreeningAdult BMI Screening [facility] SystemStart: 26-30-4046Vikui BMI ScreeningAdult BMI Screening [facility] SystemStart: 99-99-6178Cstiahstr vaccinationProMercy Health Perrysburg Hospitalca [facility] SystemStart: 10-06-2024 End: 96-82-1702Vzmberq encounter kehptxjky88/25/2025 1:40 PM EDT Office Visit [facility] [address] [place] [address] Jeana Pierce MD [address] [place] [address] [facility] Spine SurgeonsStart: 09-04-2024 End: 35-71-6813xpjvroipen55/24/2025 5:00 PM EDT Treatment [facility] [address] [place] [phone] Alejandra Lee, TOMATO PULPER OPERATOR [address] [place] [address] [facility] FB PTStart: 09-02-2024 End: 77-55-5390bfvmyraqgk64/22/2025 5:00 PM EDT Treatment [facility] [address] [place] [phone] Lucy Fay PTANOMS FB PTStart: 08-25-2024 End: 71-33-4077Iirmmpb encounter bdcmavehj33/14/2025 12:55 PM EDT Office Visit [facility] [address] [facility] [place] [address] Jeana Pierce MD [address] [place] [address] [facility] Sp[facility] SurgeonsStart: 07-29-2024 End: 93-20-4613vtlqqsfdwr65/17/2025 5:30 PM EDT Treatment [facility] [address] [place] [phone] Alejandra Lee, TOMATO PULPER OPERATOR [address] [place] [address] Lizett DONAHUE PT Comment on above:ArrivedStart: 07-22-2024 End: [id number]/10/2025 5:30 PM EDT Treatment [facility] [address] [place] [id number] Alejandra Lee, [employer]OM[employer] PUL[employer] OPERATOR [address] [place] [address] [facility] FB PTStart: 07-18-2024 End: 86-11-1079vfooiramzf99/06/2025 1:30 PM EDT Treatment [facility] [address] [place] [phone] Alejandra Lee, [employer]OM[employer] PULPER OPERATOR [address] [place] [address] [facility] FB PTStart: 07-10-2024 End: 68-03-0496mnlitzcccuLIMY FB PTComment on above:Left hip pain (Primary Dx) Start: 07-08-2024 End: 89-01-8735cuchidxugeCBJY FB PTStart: 07-04-2024 End: 80-41-7944omoioujyed87/23/2025 1:30 PM EDT Treatment [facility] PT [address] [place] [phone] Alejandra Lee, TOMATO PULPER OPERATOR [address] [place] [address] [facility] FB PTStart: 07-01-2024 End: 48-03-9432Ozzdarf encounter dingjdhlf21/20/2025 12:30 PM EDT Office Visit [facility] [address] [place] [phone] Jeana Pierce MD [address] [place] [address] [facility] SurgeonsStart: 07-01-2024 End: 40-50-9751bnbqvhcjtnSNER FB PTComment on above:ArrivedStart: 06-27-2024 End: 10-24-9588ghmmwqvzkr89/16/2025 1:00 PM EDT Treatment [facility] PT [address] [place] [phone] Micheal Savage, PT [address] [place] [address] N[facility]S FB PTStart: 06-24-2024 End: 11-50-1328amoenfsqsi02/13/2025 5:00 PM EDT Treatment [facility] PT [address] [place] [phone] Lucy Fay PTANOMS FB PTStart: 06-20-2024 End: 33-42-0165recfhzuseiMQKK FB PTComment on above:ArrivedStart: 06-17-2024 End: 69-35-0298hnicffsfgh44/06/2025 5:00 PM EDT Treatment [facility] FB PT [address] [place] [phone] Lucy Fay PTANOMS FB PTStart: 06-13-2024 End: 71-37-5875muvbmhyoqd71/02/2025 1:00 PM EDT Treatment [facility] FB PT [address] [place] [phone] Micheal Savage, PT [address] [place] [address] N[facility]S FB PTStart: 06-03-2024 End: 39-97-1963Bbeebcp encounter ozoyuifcn27/22/2025 1:45 PM EDT Office Visit [facility] [address] [place] [address] Jeana Pierce MD [address] [place] [address] [facility] SurgeonsStart: 06-03-2024 End: 30-00-8861zzchgotjey87/22/2025 9:00 AM EDT Evaluation [facility] PT [address] [place] [phone] Micheal Savage, PT [address] [place] [address] ArrivedNOMS FB PT Comment on above:ArrivedStart: 05-21-2024 End: 63-62-1531Rmbgnhxcz to same day surgery frxhsi4605/21/2024 11:45 AM EDT - 05/21/2024 2:15 PM EDT Surgery [facility] Surgery [address] 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 [place], [place] [address] Jeana Pierce MD [address] [place] [address] [facility] SurgeryStart: 05-07-2024 End: 67-64-3554Zukeoqaru to rkpmabqlbvsaw44/26/2025 9:30 AM EDT Support Visit [facility] [address] [address]XqtTcryft [facility] Start: 12-18-2023 End: 79-34-7018Rtgasswhdae MR/CT inj arthrogram hip left with guidance Fluoroscopy MR/CT inj arthrogram hip left with guidance Imaging Routine Femoral acetabular impingement Expected: 12/18/2023, Expires: 12/17/2024[facility] Work Phone: Comment on above:Expected: 12/18/2023, Expires: 12/17/2024Start: 12-18-2023 End: 15-10-4666FA Hip - left ArthrogramMR arthrogram hip left with contrast Imaging Routine Femoral acetabular impingement Pain of left hip Expected: 12/18/2023, Expires: 12/17/2024[facility] SystemComment on above:Expected: 12/18/2023, Expires: 12/17/2024Start: 10-26-2023 End: 09-60-7807jjtiuvbwdvLXWN FB PTComment on above:ArrivedStart: 10-23-2023 End: 70-70-6584imkazzilia21/10/2024 3:00 PM EDT Treatment [facility] PT [address] [place] [address] Alejandra Lee, TOMATO PULPER OPERATOR [address] [place] [address] NOMS FB PTStart: 10-19-2023 End: 94-72-4816vwmpmchdbi35/06/2024 1:30 PM EDT Treatment [facility] PT [address] [place] [phone] Alejandra Lee, TOMATO PULPER OPERATOR [address] [place] [address] NOMS FB PTStart: 10-18-2023 End: 20-17-9479tvkpdgvfzwBEST FB PTStart: 98-02-8188LQDTR-19 Vaccine ( season)COVID-19 Vaccine ( season)[facility] SystemStart: 96-76-4425Rgyxlxnsa vaccinationThe Bellevue Hospitaltart: 10-12-2023 End: 57-72-5809mrxrgubopt00/30/2024 1:30 PM EDT Treatment [facility] FB PT [address] [place] [phone] Micheal Savage, PT [address] [place] [address] NOMS FB PTStart: 10-11-2023 End: 70-45-1303rkdttohbcy60/29/2024 5:00 PM EDT Treatment [facility] FB PT [address] [place] [phone] Micheal Savage, PT [address] [place] [address] NOMS FB PTStart: 10-05-2023 End: 48-19-1260riocukrcqs67/23/2024 1:30 PM EDT Treatment [facility] FB PT [address] [place] [phone] Micheal Savage, PT [address] [place] [address] NOMS FB PTStart: 10-04-2023 End: 53-34-6447okurjrztec99/22/2024 5:30 PM EDT Treatment [facility] FB PT [address] [place] [phone] Micheal Savage, PT [address] [place] [address] ArrivedNOMS FB PT Comment on above:ArrivedStart: 09-10-2023 End: 36-74-0987Mxjoogp encounter irlqdnnhs92/29/2024 10:30 AM EDT Office Visit General Surgery [address] [address] Brad Hanna MD [address] [place] [address] groin painGeneral SurgeryComment on above:groin painStart: 08-15-2023 End: 44-74-6772Rprmmac encounter wqaqmhpnd32/03/2024 1:35 PM EDT Appointment Radiology [address] [place], [place] [id number] NEW ORDER FORTHCOMINGRadiologyComment on above:NEW ORDER FORTHCOMINGStart: 08-10-2023 End: 35-60-7779JG Pelvis limitedUS [employer] LTD Radiology Routine Left inguinal pain Expected: 08/10/2023, Expires: 08/08/2024[facility] Work Phone: Comment on above:Expected: 08/10/2023, Expires: 08/08/2024Start: 47-52-8616Vfeezjbrfi Health ScreeningBehavioral Health ScreeningThe Bellevue Hospitaltart: 72-36-5236Xknvd-19 Vaccine ( season) Covid-19 Vaccine ( season)[facility]: 44-85-9381Geyvurnj ScreeningDiabetes ScreeningThe Bellevue Hospitaltart: 26-23-3351Xpgaefabg for malignant neoplasm of colonThe Bellevue Hospitaltart: 01-53-1254Upktz panelLipid ScreeningThe Bellevue Hospitaltart: 37-53-7393JEgC,Tdap and Td Vaccines (1 - Tdap) DTaP,Tdap and Td Vaccines (1 - Tdap)[facility] HospitalSport[facility] GILUPI SystemStart: 12-09-1995 Hepatitis B Vaccine (1 of 3 - 19+ 3-dose series)Hepatitis B Vaccine (1 of 3 - 19+ 3-dose series)[facility]: 06-87-5220Pgqbc microalbumin profile DTaP,Tdap,Td Vaccine (1 - Tdap)[facility]: 68-83-4108Aunhl BMI Follow Up PlanAdult BMI Follow Up PlanCritical access hospitaltart: 62-71-4420Agyyvzw ScreeningAnxiety ScreeningThe Bellevue Hospitaltart: 68-57-3856Zepwxozkdc Screening Depression ScreeningThe Bellevue Hospitaltart: 74-44-6624Mmwxxdlrd C screening Hepatitis C ScreeningThe [facility]vue Hospitaltart: 76-48-6360XTE screeningHIV Screening [facility]: 19-26-5559Pvpaffnhij ScreeningDepression Screening Critical access hospitaltart: 58-51-8510Efyndjm ScreeningTobacco Screening Critical access hospitaltart: 37-23-1192Nvuhhohzx for malignant neoplasm of colonNOKY HealthcareComprehensive metabolic 2000 panel - Serum or Plasma [facility] HospitalFibrin D-dimer [Presence] in Platelet poor plasma by Latex agglutinationCleveland Clinic Union HospitalUS Heart TransthoracicC[facility] Clinic [facility] Hospital End: 20-35-7606TU Hip - leftUS HIP LEFT Radiology Routine Left inguinal pain 1 Occurrences starting 07/12/2023 until 08/09/2024[facility] Work Phone: Comment on above:1 Occurrences starting 07/12/2023 until 08/09/2024XR Chest 2 ViewsAdventHealth Daytona Beach Immunizations Immunization DateImmunizationNotesCare OolmhebmUxmjkfaw78-43-1838wbvampn toxoid, reduced diphtheria toxoid, and acellular pertussis vaccine, adsorbedBenkarinamin Ball DO Work Phone: [facility]10-30-2024influenza, injectable, madin billy canine kidney, preservative freeBenjamin Ball DO Work Phone: [facility]10-30-2024influenza, seasonal, injectable, preservative freeKyle Hussein PT Work Phone: [facility] CenterEhgkjbquiq41-06-1508jrqiufydb virus vaccine, unspecified formulationJeana Pierce MD Work Phone: Premier HealthMvepbp71-30-5864KVKUF-82 mRNA-1273 (Moderna)Luther Morris DO Work Phone: [facility]01-28-2021COVID-19 mRNA-1273 (Moderna)Luther Morris DO Work Phone: [facility]12-30-2020COVID-19 mRNA-1273 (Moderna)Luther Morris DO Work Phone: [facility] Payers DatePayer CategoryPayerPolicy [id number] Cross Blue Shield Managed Care - Other [id number] Health Care Facility [id number] 2..840.1.336213.72489542-11-0337Gwbidwu Health Insurance [id number]60.259457.78667-75-6338Vmkctno 1.2.840.456849.1.13.159.2.7.3.489590.91388-59-1102Zfuthyy41012353160750-25-8693 [id number] 2.840.1.383830.3.57[id number] 2..840.1.514104.3.57[id number] 2.16.840.1.682906.3.57[id number] 2.16.840.1.163731.3.57[id number] 2.16.840.1.853980.3.57[id number] 2.16.840.1.750272.3.57[id number] 2.16.840.1.228562.3.57[id number] 2.16.840.1.146872.3.57[id number] 2.16.840.1.565140.3.57[id number] 2..840.1.243718.3.57[id number] 2..840.1.131915.3.57[id number] 2.16.840.1.008503.3.57[id number] 2..840.1.260840.3.57[id number] 2..840.1.534276.3.57[id number] 2..840.1.460351.3.57[id number] 2..840.1.591536.3.57[id number] 2.840.1.623702.3.57[id number] 2.840.1.842020.3.579.2.09536-89-4572Kvtq-[id number] 1mgr4cj8-l1ib-3m13-4t23-[id number] 2.16.840.1.930287.3.579.2.531 Social History DateTypeDetailFacilityStart: 07-10-2023 End: 51-94-0145Ohg Assigned At [facility] [employer] Other Start: 07-10-2023 End: 56-47-0758Fhdakcm smoking status NHISNever smoked tobaccoOhiohealth Grady Memorial Hospital Start: 11-22-2022 End: 11-00-0804Xmpexiz use and exposureSmokeless tobacco non-userThe Bellevue Hospitaltart: 07-10-2023 End: 50-45-7089Lfbbofg of Social functionOhiohealth Grady Memorial HospitalNational Score (1-100), lower number is lower zrlx11GgoorhgirThe Bellevue Hospitaltart: 35-00-9117Gol Assigned At BirthNot on fileThe Bellevue Hospitaltart: 11-22-2022 End: 14-32-5662Hsufklqai beverage intakeCurrent drinker of alcohol (finding)[facility] CenterStart: 29-63-0202Qwu assigned at [facility] HospitalStart: 48-71-0589Xvaydl identityIdentifies as male gender (finding)[facility] Start: 43-19-7394Ooliem orientationHeterosexual (finding)[facility] HospitalTobacco smoking status NHISTobacco smoking consumption unknownMercy Health Willard Hospital GILUPI [facility] Work Phone: Start: 21-19-9978BknUfrj (finding)[facility] GILUPI [facility] Divisionexual OrientationHarrison Community Hospital General Surgery [place] NEGATED: Highlighted rowStart: NINFHistory of tobacco usePassive smokerProHolzer Medical Center – [facility] Clinical Notes 09-22-2022 to 12-05-2024 Note Date & SrpyFaztNqgfvlcg30-56-7799 NoteGeneral Surgery Office/Clinic Note Chief Complaint consultation [...] sclerosis: Father. Primary malign (more content not included)...[facility] South CampusComment on above:Result Comment: Electronically Signed By: ARTHUR NICOLE, Oren Maxwell\Date and Time Signed: 12/05/24 11:52 UNA24-20-2850 Evaluation note* Diagnosis Onset Date Resolution Status Admit Date Chest pain acuteSeptember 2024 1:53pmDyspneaacuteSeptember 2024 1:53pmAsthma acuteOctober 2024 2:48pmBenign prostatic hyperplasia with lower urinary tract symptomsacuteOctober 2024 2:48pmGERD (gastroesophageal reflux disease)acuteOctober 2024 2:48pmIron deficiency anemiaacuteOctober 2024 2:48pmLeft hip impingement syndromeacuteOctober 2024 2:48pmScreening PSA (prostate specific antigen)acuteOctober 2024 2:48pmWellness examinationacuteOctober 2024 2:48pm [facility] Work Phone: 1(377) 327-543007-14-2025 History of Present illness Narrative* Jeana Pierce MD - 08/25/2024 12:55 PM EDT [facility] [address] [facility] [place] [address] Name: Henrik Menjivar : 1975 Chief Complaint [...] well. He recently spent some time in [place] where he did a lot of walking, [...] of the aforementioned history prepared by the [place] practice provider, and I personally performed the [...] needed all questions answered.. documented in this encounterPremier Health06-06-2025 History of Present illness Narrative* Micheal Savage, [...] hip pain/soreness last few days went to [place] for [facility] college orientation a lot of sitting and walk and long car ride, recovering over last couple days, better this a.m. 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 documented in this [facility]05-20-2025 History of Present illness Narrative* Jeana Pierce MD - 07/01/2024 12:30 PM EDT [facility] [address] [place] [facility] [address] Name: Henrik Menjivar : 1975 Chief Complaint [...] therapy twice a week. He occasionally takes fgar-tte-yvcqifx medication as needed.He is noticing improvements in [...] were addressed and answered. 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 documented in this encounterSaint John's Regional Health CenterEimlviqfuk28-22-8805 History of Present illness Narrative* Micheal Savage, PT - 06/20/2024 1:00 PM EDT Images from the original note were not included. Physical Therapy Physical Therapy Treatment Visit Patient Name: Henrik Menijvar Today's Date: 06/20/2024 Encounter Diagnoses Name Primary? 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 documented in this encounterSaint John's Regional Health CenterLqwsgdhmxl70-08-0224 History of Present illness Narrative* Jeana Pierce MD - 06/03/2024 1:45 PM EDT [facility] [address] [facility] [address] Name: Henrik Menjivar : 1975 Date of [...] 4 weeks for reassessment. 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 Date: documented in this encounterSaint John's Regional Health CenterVdqpwmqoqk50-54-7450 History of Present illness Narrative* Jeana Pierce [...] surgery all questions answered. documented in this encounterPremier Health12-11-2024 Miscellaneous Notes* Telephone Encounter - Jeana Pierce [...] for surgical planning purposes. documented in this encounterWVUMedicine Harrison Community Hospitalkomoot12-11-2024 Telephone encounter Note* Telephone Encounter - Jeana [...] the left hip for surgical planning purposes. 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,, hasdone PT in past 10 sessions, no injections Subjective History Henrik Menjivar is a 48 y.o. male who presents to the office today for his left hip. Patient is a new patient to the practice. Patient has had pain in the left hip for 2-1/2 years. He denies any specific injury. 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 documented in this encounterSaint John's Regional Health CenterQfmacagkgq02-08-1399 NoteHNO ID: [id number] Author: BRAD HANNA MD Service: ? Author Type: Physician Type: Progress Notes Filed: 09/14/2023 14:54 Note Text: [facility] Abdominal Core Health - HISTORY AND [...] no inguinal hernia found US - 08/15/23 Njfa-lf-gvayhfuq tendinosis adductor origin without tear or hyperemia. [...] care with the resident. Signature: BRAD HANNA, [facility]07-29-2024 History of Present illness Narrative* Brad Hanna MD - 09/10/2023 11:00 AM EDT [facility] Abdominal [facility] - HISTORY AND PHYSICAL Chief Complaint: [...] no inguinal hernia found US - 08/15/23 Zizv-wk-vfkwvusb tendinosis adductor origin without tear or hyperemia. [...] Signature: BRAD HANNA MD documented in this encounterOhiohealth Grady Memorial Hospital07-29-2024 Nurse Note* Sindhu Stephens MA - 09/10/2023 10:28 AM EDT What is the reason for your visit today? Consult Who is your referring physician? None Are you having poor oral intake? NO Have you had unintentional weight loss of 15 lbs/7 Kg in the last 3-6 months? NO Bowels: regular Wound: None Temperature: No Drains: No [facility]07-29-2024 Nurse Note* Sindhu Stephens MA - 09/10/2023 10:28 AM EDT What is the reason for your visit today? Consult Who is your referring physician? None Are you having poor oral intake? NO Have you had unintentional weight loss of 15 lbs/7 Kg in the last 3-6 months? NO Bowels: regular Wound: None Temperature: No Drains: No documented in this encounterOhiohealth Grady Memorial Hospital05-29-2024 Telephone encounter Note * Telephone Encounter - Natalia Oliveira - 07/11/2023 3:06 PM EDT Patient has been scheduled for their [facility] US exam on 08/15/23 : 1:35 PM at [place]. [facility]05-29-2024 Miscellaneous Notes* Telephone Encounter - Natalia Oliveira - 07/11/2023 3:06 PM EDT Patient has been scheduled for their MSK US exam on 08/15/23 : 1:35 PM at [place]. * Telephone Encounter - Natalia Oliveira - [...] locations. Slot held: N/A documented in this encounterOhiohealth Grady Memorial Hospital05-29-2024 Telephone encounter Note * Telephone Encounter - Natalia Oliveira - 07/11/2023 11:07 AM EDT Called patient on July 11, 2023 at 11:07 AM to schedule their MSK US exam. No answer, left VM, 1st attempt. Left VM stating [facility] US department will call back. [facility]05-29-2024 Telephone encounter Note* Telephone Encounter - [...] the Appointment Note. Do not link order forProsperity Systems Inc. PELVIS LTD. Correct order has been routed. Location: Depending on the surgical hx, this patient can have this exam performed at any of our three locations. Slot held: N/A [facility]05-28-2024 NoteHNO ID: [id number] Author: LUTHER ANN MD Service: ? Author [...] notes. Patient consented for study? Not applicableOhiohealth Hardin Memorial Hospital05-28-2024 History of Present illness Narrative* [...] for study? Not applicable documented in this encounterOhiohealth Grady Memorial Hospital05-28-2024 History and physical note * Filomena Arreola MD - 07/10/2023 10:23 AM EDT [facility] Abdominal [facility] - HISTORY AND PHYSICAL Chief Complaint: [...] General Surgery Resident, PGY-1 07/10/2023 10:23 AM [facility]05-28-2024 History and physical note* iFlomena Arreola MD - 07/10/2023 10:23 AM EDT [facility] - HISTORY AND PHYSICAL Chief [...] PGY-1 07/10/2023 10:23 AM documented in this encounterOhiohealth Grady Memorial Hospital05-28-2024 Nurse Note* Jacklyn Graf MA - 07/10/2023 10:06 AM EDT What is the reason for your visit today? Consult Who is your referring physician? Dr. Ann Are you having poor oral intake? NO Have you had unintentional weight loss of 15 lbs/7 Kg in the last 3-6 months? NO Bowels: regular Wound: clean & dry Temperature: No Drains: No [facility]05-28-2024 Nurse Note* Jacklyn Graf MA - 07/10/2023 10:06 AM EDT What is the reason for your visit today? Consult Who is your referring physician? Dr. Ann Are you having poor oral intake? NO Have you had unintentional weight loss of 15 lbs/7 Kg in the last 3-6 months? NO Bowels: regular Wound: clean & dry Temperature: No Drains: No documented in this encounterOhiohealth Grady Memorial Hospital08-14-2023 Evaluation note* Encounter Date Diagnosis Assessment Notes Treatment Notes Treatment Clinical Notes Sep, Wellness examination (ICD-10 - Z 00.00) [employer] Other 08-11-2023 Evaluation note* Encounter Date Diagnosis [...] low risk patient. Refer for screening colonoscopy [employer] Other Evaluation + Plan note No data available for this section [facility] General Surgery [place] Evaluation noteNo InformationNort [place] Other Evaluation note* Diagnosis Left inguinal pain- Primary Abdominal pain, left lower quadrant [facility] Left inguinal pain- Primary Abdominal pain, left lower quadrant [facility] Diagnosis Left inguinal pain Abdominal pain, left lower quadrant documented [facility] Diagnosis Pain in left hip- Primary Pain in joint, pelvic region and thigh documented [facility] Diagnosis Right hip pain- Primary Pain in joint, pelvic region and thigh Femoral acetabular impingement [facility] Right hip pain- Primary Pain in joint, pelvic region and thigh Femoral acetabular impingement documented in this encounter [facility]* Diagnosis Right hip pain- Primary Pain in joint, pelvic region and thigh Femoral acetabular impingement documented in this encounter [facility]* Diagnosis Right hip pain- Primary Pain in joint, pelvic region and thigh Femoral acetabular impingement documented in this encounter [facility]* Diagnosis Right hip pain- Primary Pain in joint, pelvic region and thigh Femoral acetabular impingement documented in this encounter [facility]* Diagnosis Right hip pain- Primary Pain in joint, pelvic region and thigh Femoral acetabular impingement documented in this encounter [facility]* Diagnosis Right hip pain- Primary Pain in joint, pelvic region and thigh Femoral acetabular impingement documented in this encounter [facility]* Diagnosis Right hip pain- Primary Pain in joint, pelvic region and thigh Femoral acetabular impingement documented in this encounter [facility]* Diagnosis Femoroacetabular impingement of left hip- Primary Left hip pain Pain in joint, pelvic region and thigh Femoral acetabular impingement Pain of left hip Left hip pain Pain in joint, pelvic region and thigh documented [facility] Diagnosis 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- Primary 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 documented [facility]* Diagnosis 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- Primary 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 documented [facility]* Diagnosis Femoroacetabular impingement of left hip- Primary 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 documented [facility]* Diagnosis Left hip pain- Primary Pain in joint, pelvic region and thigh 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 documented in this encounter [facility]* Diagnosis Left hip pain- Primary Pain in joint, pelvic region and thigh Left hip pain Pain in joint, pelvic region and thigh documented [facility]* Diagnosis Left hip pain- Primary Pain in joint, pelvic region and thigh 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 documented in this encounter [facility]* Diagnosis Left hip pain- Primary Pain in joint, pelvic region and thigh 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 documented in this encounter [facility] note* Diagnosis Left hip pain- Primary Pain in joint, pelvic region and thigh 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 documented in this encounter [facility] note* Diagnosis Left hip pain- Primary Pain in joint, pelvic region and thigh 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 documented in this encounter [facility] note* Diagnosis Left hip pain- Primary Pain in joint, pelvic region and thigh 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 documented in this encounter [facility] note* Diagnosis Postoperative visit- Primary documented [facility]* Diagnosis Left hip pain- Primary Pain in joint, pelvic region and thigh 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 documented in this encounter [facility] note* Diagnosis Femoroacetabular impingement of left hip- Primary documented [facility]* Diagnosis Left hip pain- Primary Pain in joint, pelvic region and thigh 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 documented in this encounter [facility] HealthcareEvaluation noteNo assessment information availableC[facility] Work Phone: Evaluation note* Diagnosis Onset Date Resolution Status Admit Date Chest pain acuteSeptember 2024 1:53pmDyspneaacuteSeptember 2024 1:53pmMurmur acuteSeptember 2024 1:53pm [facility] Work Phone: History general Narrative - Reported* Type Description Date Medical History Allergic rhinitis due to pollen Medical HistoryGastro-esophageal reflux disease without esophagitisMedical HistoryBenign prostatic hyperplasia with lower urinary tract symptomsMedical HistoryAsthmatic bronchitis, mild intermittent, uncomplicated [employer] Other Hospital Discharge instructions No data available for this section [facility] General Surgery [place] InstructionsNot on filedocumented in this encounter [facility] SystemInstructionsNot on filedocumented in this encounter [facility] SystemInstructionsNot on filedocumented in this encounter [facility] SystemInstructions* Pre-Procedure Instructions - Rosalva Westbrook RN - 05/07/2024 9:30 AM EDT Your surgery/procedure is scheduled at [facility] on 05/21/2024 at 1145 am Tentative arrival time 915 am per surgeon instructions You will receive a phone call from [facility] the day beforeyour surgery to verify your arrival time. [address] [place] [address]. Park in Entrance D. Report to the registration desk in the main lobby. If you have any questions prior to surgery, you may call Pre-Admission Clinic at [phone] between 7:30 am and 4:30 pm Sunday through Sunday. If you have any concerns the morning of surgery, please call the Pre-op Department at [phone]. Notify your SURGEON if you develop any [...] dermal piercings),hair extensions that contain metal, nail french, make-up, and contact lens. If you received [...] RIGHTS AND RESPONSIBILITIES As a patient at [facility], you have the right to: Receive medical care and be informed of who is taking care of you Be treated with dignity and respect Have a family member/corporate representative of choice and your physician notified of your admission Receive information and actively participate in decisions about your care and treatment Refuse care, treatment and services Decide who may provide your support and speak for you Access scientology and spiritual services Participate in ethical issues [...] of hospital charges and payment methods Patient/patient corporate representative responsibilities are to: Provide information about health status to facilitate care, treatment and services Follow the treatment, plan, keep appointments and speak up when you do not understand the plan Respect the rights of other patients and healthcare personnel Follow organizational rules and regulations that support quality care and a safe environment Fulfill financial obligations as promptly as possible [facility] SystemInstructionsNot on filedocumented in this encounter [facility] [place] SystemInstructionsNot on filedocumented in this encounter [facility] SystemInstructionsNot on filedocumented in this encounter [facility]* Pre-Procedure Instructions - Rosalva Westbrook RN - 05/07/2024 9:30 AM EDT Your surgery/procedure is scheduled at [facility] on 05/21/2024 at 1145 am Tentative arrival time 915 am per surgeon instructions You will receive a phone call from [facility] the day beforeyour surgery to verify your arrival time. [address] [place] [address]. Park in Entrance D. Report to the registration desk in the main lobby. If you have any questions prior to surgery, you may call Pre-Admission Clinic at [phone] between 7:30 am and 4:30 pm Sunday through Sunday. If you have any concerns the morning of surgery, please call the Pre-op Department at [phone]. Notify your SURGEON if you develop any [...] dermal piercings),hair extensions that contain metal, nail french, make-up, and contact lens. If you received [...] RIGHTS AND RESPONSIBILITIES As a patient at [facility], you have the right to: Receive medical care and be informed of who is taking care of you Be treated with dignity and respect Have a family member/corporate representative of choice and your physician notified of your admission Receive information and actively participate in decisions about your care and treatment Refuse care, treatment and services Decide who may provide your support and speak for you Access scientology and spiritual services Participate in ethical issues [...] of hospital charges and payment methods Patient/patient corporate representative responsibilities are to: Provide information about health status to facilitate care, treatment and services Follow the treatment, plan, keep appointments and speak up when you do not understand the plan Respect the rights of other patients and healthcare personnel Follow organizational rules and regulations that support quality care and a safe environment Fulfill financial obligations as promptly as possible [facility] note No data available for this section [facility] [place] Reason for referral (narrative)* Reason Referral for screeni ng colonoscopy Diagnosis 1 Screening for colon cancer (Z12.11) Referral Organization [facility] florentino Referring Provider First Name Luther Referring Provider Last Name Arturo Referring Provider Specialty Internal Me dicine Referred Organization [facility] Referred Provider Dionisio Callejas Referred Address [address] [place], [place],[address] Referred Provider Specialty Surgery Referral Priority Routine General Notes Dr. Menjivar is being referred for a screening colonoscopy. He is an asymptomatic, low risk patient. He denies family history for colon cancer or polyps. He denies change in appetite, weight or bowel habits. He denies abdominal pain, heartburn or dysphagia. He denies melena or hematochezia. [employer] Other Reason for referral (narrative)* Diagnostic Procedure Only (Routine) - Pending ReviewSpecialtyDiagnoses / ProceduresReferred By ContactReferred To [facility] Diagnoses Left inguinal pain Procedures US PELVIS LTD US PELVIC NONOBSTETRIC IMAGE DCMTN LIMITED/F/U Luther Ann MD [address] [place] [address] [facility] [place] [address] Referral IDStatusReasonStart DateExpiration DateVisits RequestedVisits [id number] Review Auto-Generated Referral T [facility] for referral (narrative)* Diagnostic Procedure Only (Routine) - Pending ReviewSpecialtyDiagnoses / ProceduresReferred By Contact Referred To [facility] Diagnoses Left inguinal pain Procedures US HIP LEFT US COMPL JOINT R-T W/IMAGE DOCUMENTATION Luther Ann MD [address] [place] [address] [place] [address] Referral IDStatusReasonStart DateExpiration DateVisits RequestedVisits [id number] Review Auto-Generated Referral T [facility] for referral (narrative)* Diagnostic Procedure Only (Routine) - ClosedSpecialtyDiagnoses / ProceduresReferred By ContactReferred To [facility] Diagnoses Left inguinal pain Procedures US HIP LEFT US COMPL JOINT R-T W/IMAGE DOCUMENTATION Luther Ann MD [address] [place] [id number] [id number] Referral IDStatusReasonStart DateExpiration DateVisits RequestedVisits [id number] Auto-Generated Referral T [facility] for referral (narrative)No reason for referral information availableGuernsey [facility] Work Phone: [facility] Narrative* Diagnostic Procedure Only (Routine) - ClosedSpecialtyDiagnoses / ProceduresReferred By ContactReferred To [facility] Diagnoses Left inguinal pain Procedures US HIP LEFT US COMPL JOINT R-T W/IMAGE DOCUMENTATION Luther Ann MD [address] [place] [id number] [place] [address] Referral IDStatusReasonStart DateExpiration DateVisits RequestedVisits [id number] Auto-Generated Referral / [facility] for visit Narrative* Rehabilitation - Outpatient (Routine) - AuthorizedSpecialtyDiagnoses / ProceduresReferred By Contact Referred To ContactPhysical Therapy Diagnoses Other specified joint disorders, left hip Other articular cartilage disorders, left hip Procedures IN PHYSICAL THERAPY EVALUATION LOW COMPLEX 20 MINS Jeana Pierce MD [address] [place] [address] Phone: tel: fax: Micheal Savage, PT [address] [place] [address] Phone: tel: fax: Referral IDStatusReasonStart DateExpiration DateVisits RequestedVisits [id number] Consult and Treat / [facility] for visit Narrative* Rehabilitation - Outpatient (Routine) - AuthorizedSpecialtyDiagnoses / ProceduresReferred By ContactReferred To ContactPhysical Therapy Diagnoses Other specified joint disorders, left hip Other articular cartilage disorders, left hip Procedures IN PHYSICAL THERAPY EVALUATION LOW COMPLEX 20 MINS Jeana Pierce MD [address] [place] [address] Phone: tel: fax: Micheal Savage, PT [address] [place] [address] Phone: tel: fax: Referral IDStatusReasonStart DateExpiration DateVisits RequestedVisits [id number] Consult and Treat / [facility] for visit Narrative* Rehabilitation - Outpatient (Routine) - ClosedSpecialtyDiagnoses / ProceduresReferred By ContactReferred To Contact Physical Therapy Diagnoses Other specified joint disorders, left hip Other articular cartilage disorders, left hip Procedures IN PHYSICAL THERAPY EVALUATION LOW COMPLEX 20 MINS Jeana Pierce MD [address] [place] [address] Phone: tel: fax: Micheal Savage, PT [address] [facility] [place] [address] Phone: tel: fax: Referral IDStatusReasonStart DateExpiration DateVisits RequestedVisits [id number] Consult and Treat [facility] HealthcareReason for visit Narrative* Rehabilitation - Outpatient (Routine) - AuthorizedSpecialtyDiagnoses / ProceduresReferred By ContactReferred To ContactPhysical Therapy Diagnoses Other specified joint disorders, left hip Other articular cartilage disorders, left hip Procedures IN THERAPEUTIC PX 1/> AREAS EACH 15 MIN EXERCISES Jeana Pierce MD [address] [place] [address] Phone: tel: fax: Micheal Savage, PT [address] [place] [address] Phone: tel: fax: Referral IDStatusReasonStart DateExpiration DateVisits RequestedVisits [id number]/ [facility] Healthcare Summary Purpose Family History [...] HIGH COMPLEX 45 MINS Brad Hanna MD [address] [place] [address] [facility] [place] [address] [place] [address] Referral IDStatusReasonStart DateExpiration DateVisits RequestedVisits [id number] Review Auto-Generated Referral Chief Complaint and Reason [...] and content) DATE CREATED AUTHOR 08/17/2020 [facility] DATE CREATED AUTHOR AUTHOR'S ORGANIZ ATION 12/23/2021 [facility] DATE CREATED AUTHOR AUTHOR'S ORGANIZ ATION 09/17/2023 [facility] DATE CREATED AUTHOR AUTHOR'S ORGANIZ ATION 03/12/2024 [facility] DATE CREATED AUTHOR AUTHOR'S ORGANIZ ATION 05/22/2024 [facility] DATE CREATED AUTHOR AUTHOR'S ORGANIZ ATION 08/29/2024 [facility] DATE CREATED AUTHOR AUTHOR'S ORGANIZ ATION 10/17/2024 [facility] DATE CREATED AUTHOR AUTHOR'S ORGANIZ ATION 12/07/2024 [facility] REASON FOR VISIT (unrecogniz ed section and content) ReasonCommentsConsultReasonCommentsAppointmentSpecialtyDiagnoses / Procedures Referred By ContactReferred To ContactPhysical Therapy Diagnoses Lt hip pain Procedures IN PHYSICAL THERAPY EVALUATION HIGH COMPLEX 45 MINS Brad Hanna MD Micheal Savage, PT [address] [place] [address] Referral IDStatusReasonStart DateExpiration DateVisits RequestedVisits [id number] PatientNP left hip pain 2 1/2 years, unaware of specific injury, MRI [address] [facility],, hasdone PT in past 10 sessions, [...] or prosecute any alcohol or drug abuse patient.[facility] HospitalIn the event this information is protected by the Federal Confidentiality of Alcohol and Drug Abuse Patient Records regulations: The Federal rules restrict any use of the information to criminally investigate or prosecute any alcohol or drug abuse patient.[facility] HospitalIn the event this information is protected by the Federal Confidentiality of Alcohol and Drug Abuse Patient Records regulations: The Federal rules restrict any use of the information to criminally investigate or prosecute any alcohol or drug abuse patient.[facility] HospitalIn the event this information is protected by the Federal Confidentiality of Alcohol and Drug Abuse Patient Records regulations: The Federal rules restrict any use of the information to criminally investigate or prosecute any alcohol or drug abuse patient.[facility] HospitalIn the event this information is protected by the Federal Confidentiality of Alcohol and Drug Abuse Patient Records regulations: The Federal rules restrict any use of the information to criminally investigate or prosecute any alcohol or drug abuse patient.[facility] Care Teams (unrecognized sec tion and content) Team MemberRelationshipSpecialtyStart DateEnd Date Luther Morris MD [address] [place] [place] [address] PCP - Rxwvyom05/10/23Team MemberRelationshipSpecialtyStart DateEnd Date Luther Morris MD [address] [place] [facility] [address] PCP - Nzjwfct99/10/23Team MemberRelationshipSpecialtyStart DateEnd Date Luther Morris MD [address] [place] [place] [address] PCP - Hgutbwq35/10/23Team MemberRelationshipSpecialtyStart DateEnd Date Luther Morris MD [address] [place] [place] [address] PCP - Vblxtum52/10/23Team MemberRelationshipSpecialtyStart DateEnd Date Luther Morris MD [address] [place] [place] [address] PCP - Tmcqibn26/10/23Team MemberRelationshipSpecialtyStart DateEnd Date Luther Morris MD [address] [place] [place] [address] PCP - Jdnppfq97/10/23Team MemberRelationshipSpecialtyStart DateEnd Date Luther Morris MD [address] [place] [facility] [place] [address] PCP - Bffnrfd37/10/23Team MemberRelationshipSpecialtyStart DateEnd Date Luther Morris MD [address] [place] [place] [address] PCP - Mwyxwql85/10/23Team MemberRelationshipSpecialtyStart DateEnd Date Luther Morris MD [address] [place] [place] [address] PCP - Wbcadyd23/10/23Team MemberRelationshipSpecialtyStart DateEnd Date Luther Morris MD [address] [place] [facility] [place] [address] PCP - Ezuuxsn88/10/23Team MemberRelationshipSpecialtyStart DateEnd Date Luther Morris MD [address] [place] [facility] [place] [address] PCP - Bthkhqf99/10/23Team MemberRelationshipSpecialtyStart DateEnd Date Luther Morris MD [address] [place] [place] [address] PCP - Lbkrxtc49/10/23Team MemberRelationshipSpecialtyStart DateEnd Date Luther Morris DO [address] [facility] [place] [address] PCP - GeneralInternal [facility]10/16/23Team MemberRelationshipSpecialtyStart Date End Date Luther Morris DO [address] [facility] [place] [address] PCP - GeneralInternal Medicine10/16/23Team MemberRelationshipSpecialtyStart Date End Date Luther Morris DO [address] [place] [address] PCP - GeneralInternal Medicine10/16/23Team MemberRelationshipSpecialtyStart Date End Date Luther Morris DO [address] [place] [address] PCP - GeneralInternal Medicine10/16/23Team MemberRelationshipSpecialtyStart Date End Date Luther Morris DO [address] [place] [address] PCP - GeneralInternal Medicine10/16/23Team MemberRelationshipSpecialtyStart Date End Date Luther Morris MD PCP - Ltqsmox84/10/23Team MemberRelationshipSpecialtyStart DateEnd Date Luther Morris MD PCP - Adrzsch88/10/23Team MemberRelationshipSpecialtyStart DateEnd Date Luther Morris DO [address] [place] [address] PCP - GeneralInternal Medicine10/16/23Team MemberRelationshipSpecialtyStart Date End Date Luther Morris DO PCP - Eqxiyvt14/10/23Team MemberRelationshipSpecialtyStart DateEnd Date Luther Morris DO PCP - Uethajf41/10/23Team MemberRelationshipSpecialtyStart DateEnd Date Luther Morris, DO PCP - Rbxqhje40/10/23Team MemberRelationshipSpecialtyStart DateEnd Date Luther Morris, DO PCP - Nculdjl75/10/23Team MemberRelationshipSpecialtyStart DateEnd Date Luther Morris, DO PCP - Kdfkkvu44/10/23Team MemberRelationshipSpecialtyStart DateEnd Date Luther Morris, DO PCP - Xkwkhtv62/10/23Team MemberRelationshipSpecialtyStart DateEnd Date Luther Morris, DO PCP - Tishbef66/10/23Team MemberRelationshipSpecialtyStart DateEnd Date Luther Morris, DO PCP - Kzahgrq77/10/23Team MemberRelationshipSpecialtyStart DateEnd Date Luther Morris, DO PCP - Fxdmcgb55/10/23Team MemberRelationshipSpecialtyStart DateEnd Date Luther Morris, DO [address] [place] [address] PCP - GeneralInternal [facility]10/16/23Team MemberRelationshipSpecialtyStart Date End Date Luther Morris, DO PCP - Wwxwseh58/10/23Team MemberRelationshipSpecialtyStart DateEnd Date Luther Morris, DO PCP - Ihdfezk51/10/23Team MemberRelationshipSpecialtyStart DateEnd Date Luther Morris, DO PCP - Hcpmktv09/10/23Team MemberRelationshipSpecialtyStart DateEnd Date Luther Morris, DO PCP - Thruujb80/10/23Team MemberRelationshipSpecialtyStart DateEnd Date Luther Morris, DO [address] [place] [address] PCP [facility]10/16/23Team MemberRelationshipSpecialtyStart Date End Date Luther Morris, DO PCP Nstousq46/10/23 Team Status: Active Member Role Status Dates [...] BE BASED ON THE PRIMARY CLINICAL RECORDS. [facility] [place], [facility]. provides no warranty or guarantee of the accuracy or completeness of information in this document.
[2024-12-31 15:09] LABS: Hematocrit 45.2 % (42.0-54.0); Hemoglobin 14.6 g/dL (14.0-18.0); Immature Granulocytes Abs Auto 0.02 10^3/uL (0.00-0.03); Immature Granulocytes Pct Auto 0.3 % (0.0-0.5); Lymphocytes Absolute Auto 1.7 10^3/uL (1.2-3.8); Mean Corpuscular HGB Conc 32.3 g/dL (29.9-35.2); Mean Corpuscular Hemoglobin 26.2 pg (25.9-34.0); Mean Corpuscular Volume 81.1 fL (80.0-94.0); Platelet Count 245 10^3/uL (150-450); Red Blood Count 5.57 10^6/uL (4.70-6.10)
[2024-12-31] MEDS: ALBUTEROL SULFATE 2.5 MG/3 ML VIAL NEB IH (15:29)
[2024-12-31 15:32] VITALS: PULSE 87; O2SAT 99
[2024-12-31 15:42] LABS: White Blood Count 6.0 10^3/uL (4.0-11.0)
[2024-12-31 16:06] LABS: Ferritin 24.0 ng/mL (26.0-388.0)
== END 2024-12-31 14:53 | disposition home or self-care (01) ==
LOC: CARD 14:52
PROVIDERS: PCP Internal Medicine; Visit Provider Internal Medicine
DX: R06.09 Other forms of dyspnea (principal); J45.20 Mild intermittent asthma, uncomplicated; D50.0 Iron deficiency anemia secondary to blood loss (chronic); R59.0 Localized enlarged lymph nodes
CPT/HCPCS: 36415; 82728; 85025; 86140; 94060; 94726; 94729

== ENCOUNTER 2025-01-07 14:51 | Outpatient (OUT) | payer OTHER, SELFPAY ==
--- OUTSIDE RECORDS SUMMARY | 2025-01-07 14:53 | XMS_ITS | Clinical Summary ---
Author Organization [facility] Healthcare Address [address] [place] [address] Care Team Providers Care Mill Washer Name Role Phone Luther Nicolas DO Primary Care Provider [phone] Allergies No known active allergies Medications MedicationSigDispense QuantityRefillsLast FilledStart DateEnd DateStatus tamsulosin (Flomax) 0.4 MG 24 hr capsule Active Singulair 10 MG tablet Active cetirizine (ZyrTEC ALLERGY) 10 MG tablet Active Active Problems ProblemNoted DateDiagnosed DateArticular cartilage disorder of left hip 06/03/2024Left hip pain09/27/2023Femoral acetabular gzkqnqeqcju95/15/2024 Encounter for screening for malignant neoplasm of colon11/22/2022 Immunizations ImmunizationAdministration DatesNext DueInfluenza, seasonal, injectable, preservative free12/12/2023 Family History Medical HistoryRelationNameCommentsProstate cancerFatherBreast cancerNeg HxColon cancerNeg HxOvarian cancerNeg HxRelationNameStatusCommentsFatherAliveMotherAlive Social History Tobacco UseTypesPacks/DayYears UsedDateSmoking Tobacco: NeverSmokeless Tobacco: NeverAlcohol UseStandard Drinks/WeekCommentsYes1 (1 standard drink = 0.6 oz pure alcohol)Sex and Gender InformationValueDate RecordedSex Assigned at BirthMale 11/21/2022 10:54 PM EDTLegal KqdMcbx0709/27/2022 2:44 PM EDTGender IdentityMale 11/21/2022 10:54 PM EDTSexual LgsfmomojovIbqgsejk77/10/2023 10:54 PM EDT Last Filed Vital Signs Vital SignReadingTime TakenCommentsBlood Nzalqnfb799/8610 3:27 PM EDT Pulse--Temperature--Respiratory Rate--Oxygen Saturation--Inhaled Oxygen Concentration--Zkcjoz32.6 kg (180 lb)11/22/2022 3:27 PM BETUarzib089.7 cm (5' 8 )11/22/2022 3:27 PM EDTBody Mass Index27.371 3:27 PM EDT Plan of Treatment Health MaintenanceDue DateLast DoneCommentsCT Shgvfygxsaeu27/27/1977FIT-DNA 1975FIT1976FOBT1976 2683Ouguujchnwrpl11/27/1977Pneumococcal Vaccine: Pediatrics (0 to 5 Years) and At-Risk Patients (6 to 64 Years) (1 of 2 - PCV)12/09/1995COVID-19 Vaccine (2024- season), 03/11/2020, 02/11/2020Influenza Vaccine (#1)/4Colonoscopy 311/07/2022, 12/18/2022, 3Colorectal Cancer Screening 12/18/2032 Insurance * Guarantor: Tara Simmons TypeRelation to PatientDate of BirthPhone Billing AddressPersonal/KrzsxqFzif78/27/1976 [facility] [place] [place] [address] Care Teams Team MemberRelationshipSpecialtyStart DateEnd Date Luther Nicolas DO PCP - Oecclwk85/10/23
--- OUTSIDE RECORDS SUMMARY | 2025-01-07 14:53 | XMS_ITS | Clinical Summary ---
Author Organization [employer] [facility] tem Address [id number] [place] [address] Care Team Providers Care Engineer Technician Name Role Phone Luther Nicolas Primary Care Provider [phone] Allergies No known active allergies Medications MedicationSigDispense [...] of acetabular labrum of left hip03/26/2024Femoral acetabular iqgediusxiq05/05/2024 Family History Medical HistoryRelationNameCommentsProstate cancerFatherLouisAnesthesia problems Neg HxRelationNameStatusCommentsFatherLouis Social History Tobacco UseTypesPacks/DayYears UsedDateSmoking Tobacco: NeverPassive Smoke Exposure: NeverSmokeless Tobacco: Never Tobacco Cessation:Counseling Given: Not Answered Alcohol UseStandard Drinks/WeekCommentsYes1 (1 standard drink = 0.6 oz pure alcohol)ChildcareAnswerDate RcbqgxctImbazcwgbVwboses70/10/2019EmploymentAnswer Date BxtiylckPdupmjyuxpZwbytam11/10/2019Hunger ScreeningAnswerDate Recorded Within the past 12 months we worried whether our food would run out before we got money to buy more.Never True08/25/2024Within the past 12 months the food we bought just didn't last and we didn't have money to get more.Never True 08/25/2024Sex and Gender InformationValueDate RecordedSex Assigned at BirthNot on fileLegal RxsOvuf2609/15/2014 3:03 PM EDTGender IdentityNot on fileSexual OrientationNot on file Last Filed Vital Signs Vital SignReadingTime TakenCommentsBlood Somuuqfo671/8504 3:35 PM EDT Qbphe8307 3:35 PM QTWWvcxwdthoqe71.1 ??C (97 ??F)05/21/2024 1:50 PM EDT Respiratory Umxv6973 3:35 PM EDTOxygen Qtmkllkkdt12%05/21/2024 3:35 PM EDTInhaled Oxygen Concentration--Eusyae02.1 kg (192 lb)08/25/2024 12:52 PM EDT Ewbsol402.7 cm (5' 8 )08/25/2024 12:52 PM EDTBody Mass Index29.19008/25/2024 12:52 PM EDT Plan of Treatment Health MaintenanceDue DateLast DoneCommentsDepression Vaqyjakot80/27/1989Adult BMI Follow Up Plan1994DTaP,Tdap and Td Vaccines (1 - Tdap)12/09/1995COVID- 19 Vaccine ( - season), 03/11/2020, 02/11/2020 Influenza Iqvcbca64/Tobacco Hamuxoyja00/dult BMI Elngayjcd03 [employer] Not on file Insurance Care Teams Team MemberRelationshipSpecialtyStart DateEnd Date Luther Nicolas DO [address] [place] [address] PCP - GeneralInternal Medicine10/16/23
--- NOTE | 2025-01-07 14:54 | CT_ITS ---
[address] [address] Patient Name: SAMSON MENJIVAR MRN: [facility]:[id number] date: 1975 Sex: M Assigned Patient Location: CT Current Patient Location: CT Accession/Order Number: [id number] Exam Date: 01/07/2025 15:05 Report Date: 01/07/2025 16:41 At the request of: MILANA MORRIS DO Procedure: CT angio chest CT ANGIOGRAM OF THE CHEST, PULMONARY EMBOLISM PROTOCOL: CLINICAL INFORMATION: Chest pain, dyspnea TECHNIQUE: Following intravenous injection of contrast CT scans of the chest were obtained using pulmonary embolism protocol. Coronal and sagittal reconstructed images, as well as volume rendered CT pulmonary angiographic images were also submitted.The CT exam was performed using one or more of the following dose reduction techniques: Automated exposure control, adjustment of the MA and/or Kv according to patient size, or use of the iterative reconstruction technique. FINDINGS: Pulmonary Vasculature: Contrast bolus is adequate for evaluation of pulmonary embolism. Pulmonary trunk appears nondilated. No filling defects are identified to suggest pulmonary embolism. Mediastinum : Thoracic aorta is normal in caliber. No pericardial effusion. No lymphadenopathy. The esophagus is grossly unremarkable. Lungs: No focal consolidation, pneumothorax or pleural effusion. Upper abdomen: No acute findings Soft tissue/bones: Soft tissues surrounding the chest wall demonstrate no acute findings. Osseous structures demonstrate degenerative change. CT/CT angio chest IMPRESSION: No CT evidence of pulmonary embolism or acute cardiopulmonary process. Impression dictated by: Robby Saba M.D. 01/07/2025 4:41 PM Dictation Location: [facility] Electronically authenticated by: [id number] Date: 01/07/2025 16:41
--- OUTSIDE RECORDS SUMMARY | 2025-01-07 14:54 | XMS_ITS | Clinical Summary ---
Author Organization [facility] Address [address] [place], [place] [address] Care Team Providers Care Cup Machine Operator Name Role Phone Unavailable Primary Care [...] RecordedNational Score (1-100), lower number is lower xcfj085207/10/2023State Score (1-10), lower number is lower mxyz45707/10/2023 Data from: https://www.neighborhoodatlas.medicine.[facility].edu/. Last address used for utdhgpmaczl[address]07/10/2023Sex and Gender InformationValueDate RecordedSex Assigned at BirthNot on fileLegal VmqBvac0505/11/2023 4:00 PM EDT Gender IdentityNot on fileSexual OrientationNot on file Last Filed Vital Signs Vital SignReadingTime TakenCommentsBlood Lusjcufx109/8507 10:31 AM EDT Cmkmn2810 10:31 AM HTFWuquztredgg21.8 ??C (98.3 ??F)09/10/2023 10:31 AM EDTRespiratory Rate--Oxygen Saturation--Inhaled Oxygen Concentration--Hajlcq44.3 kg (188 lb)09/10/2023 10:31 AM NMGUzvfma995.7 cm (5' 8 )09/10/2023 10:31 AM EDT Body Mass Index28.59009/10/2023 10:31 AM EDT Plan of Treatment Health MaintenanceDue DateLast DoneCommentsAnxiety Qaaweygvy75/27/1995Depression Oaffqapdm72/27/1995HIV Ksxrbgrum47/27/1995Hepatitis C Mlnsteiuq10/27/1995 DTaP,Tdap,Td Vaccine (1 - Tdap)12/09/1995Hepatitis B Vaccine (1 of 3 - 19+ 3- dose series)12/09/1995Lipid Frqwvzfvg39/27/2012CT Fhuxyusiccjp64/27/2022 Cologuard (FIT-DNA)2492Zycpxfwqbjs64/27/2022Colorectal Cancer Screening 2Diabetes Ltjgummvm62/27/2022Fecal Occult Blood2021igmoidoscopy 2Covid-19 Vaccine ( season)510/, 03/11/2020, 02/11/2020Influenza Vaccine (#1)2024 Insurance * Guarantor: Henrik Simmons AAccount TypeRelation to PatientDate of BirthPhone Billing AddressPersonal/YyisfbZyam41/27/1976 [facility] [address]
== END 2025-01-07 14:52 | disposition home or self-care (01) ==
LOC: CT 14:51
PROVIDERS: PCP Internal Medicine; Visit Provider Internal Medicine
DX: R07.2 Precordial pain (principal); R06.09 Other forms of dyspnea
CPT/HCPCS: 71275; Q9967

== ENCOUNTER 2025-01-20 07:10 | Outpatient (OUT) | payer OTHER, SELFPAY ==
--- NOTE | 2025-01-20 07:13 | US_ITS ---
The [address] [address] Patient Name: SAMSON MENJIVAR MRN: [id number] date: 1975 Sex: M Assigned Patient Location: US Current Patient Location: US Accession/Order Number: [id number] Exam Date: 01/20/2025 07:15 Report Date: 01/20/2025 10:23 At the request of: MILANA MORRIS DO Procedure: US soft tissue head and neck US soft tissue head and neck 01/20/2025 7:35 AM SIGNS AND SYMPTOMS: Fullness Supraclavicular Fossa PROTOCOL: Grayscale and color Doppler sonographic images of the area of concern in the supraclavicular neck were obtained. COMPARISON: 12/11/2024 FINDINGS: There are a few benign-appearing lymph nodes within the supraclavicular region measuring up to 2 x 1 x 2 mm in greatest dimension and 2 x 1 x 2 mm in greatest dimension on the left. A slightly larger lymph node is noted measuring 8 x 2 x 4 mm on the right. There is no evidence of mass or pathologically enlarged lymph nodes. No fluid collection. US/US soft tissue head and neck IMPRESSION: Benign-appearing lymph nodes are noted in the supraclavicular fat. No evidence of mass. Impression dictated by: Virgilio Head M.D. 01/20/2025 10:23 AM Dictation Location: [place] [address] Electronically authenticated by: [id number] Y Date: 01/20/2025 10:23
--- OUTSIDE RECORDS SUMMARY | 2025-01-20 07:13 | XMS_ITS | CCD ---
Author Organization [facility] CliniSytx Care Team Providers Care Hat Checker Name Role Phone ARTURO, DR CORTÉS Admitting [...] DR CORTÉS Attending Unavailable WEST, DR BRAD Galavn Consulting Unavailable BALL, DR CORTÉS Primary Care [...] Unavailable Ball Luther JACOBSON Primary Care Provider [phone] Jorge David DO Attending Provider Malatz Jr, Edanalilia Attending Unavailable Joann Jr, Edward Admitting Unavailable Luther Morris Primary Care Unavailable Luther Morris DO Attending Provider [phone] ARTURO LUTHER Primary Care Physician [phone] Oren GIBSON Attending Unavailable LUTHER MORRIS Referring Unavailable Allergies Allergy ClassificationReported Allergen(s)Allergy TypeDate of OnsetReaction(s) Facility (1 source)No Known Medication Allergies; Translations: [No Known Medication Allergies]Propensity to adverse reactions (disorder)[facility] Repository Medications Current Medications MedicationDrug Class(es)DatesSig (Normalized)Sig (Original)acetaminophen 500 mg oral tablet (2 sources)acetaminophen (TYLENOL EXTRA STRENGTH) 500 mg tablet Take 1 tablet (500 mg total) by mouth as needed for pain. Activeacetaminophen 325 mg / HYDROcodone bitartrate 5 mg oral tablet (1 source)Opioid AgonistStart: 05-21-2024 End: 85-87-1922REZGMfjsuug-acetaminophen (NORCO) 5-325 mg per tablet Indications: Post-operative pain Take 1-2 tablets by mouth every 6 (six) hours as needed for pain for up to 5 days. Max Daily Amount: 8 tablets 40 tablet 05/21/2024 05/26/2024 ActiveAlbuterol (9 sources)beta2-Adrenergic AgonistStart: 81-76-2597tpze 2 puff(s) by inhalation every six hoursAlbuterol (Eqv-ProAir HFA) 2 puff(s), Inhalation, q6hr Shortness of breath or wheezing, Refill(s) 0Start Date: 11/21/24 Status: Ordered Repeat number: 1Start: 14-34-4271zhjo 1 puff(s) by inhalation every six hours as needed for wheezingAlbuterol Sulfate 90 mcg/actuation HFA aerosol inhaler Active 2 PUFF INHALATION Every 6 hours as needed for shortness of breath or wheezing 8.5 30 2 November 10, 2024 8:47am Complies with drug therapyStart: 01-02-2024 End: 99-74-5473Wruosjdnb Sulfate 90 mcg/actuation HFA aerosol inhaler Discontinued [...] Inhibitor, Nonsteroidal Anti-inflammatory Drug Start: 05-21-2024 End: 13-58-9007sicl 1 tablet by mouth in the morningaspirin 81 mg Take 1 tablet (81 mg total) by mouth in the morning and 1 tablet (81 mg total) beforebedtime. Do all this for 30 days. To start after aspirin 325 mg complete. 60 tablet 05/21/2024 06/20/2024 ActiveStart: 05-21-2024 End: 37-24-2125gqif 1 tablet by mouth in the morning, [...] release oral capsule (1 source)Proton Pump InhibitorStart: 15-93-3576rymw 1 capsule by mouth once dailyNexium 40 mg Cap-EC 40 mg = 1 cap(s), Oral, Daily, Refills(s) 0 Start Date: 12/05/24 Status: Ordered Repeat number: 1ferrous sulfate 325 mg oral tablet (1 source)Start: 71-29-7184bxsv 1 tablet by mouth once dailyferrous sulfate 325 mg Tab 325 mg = 1 tab(s), Oral, Daily, Refills(s) 0 Start Date: 12/05/24 Status: Ordered Repeat number: 1indomethacin 75 mg extended release oral capsule (4 sources)Nonsteroidal Anti-inflammatory DrugStart: 67-12-0995jzom 1 capsule by mouth at mealtimeindomethacin SR (INDOCIN SR) 75 mg CR capsule Take 1 capsule (75 mg total) by mouth in the morning.With food. 4 capsule 05/21/2024 Active montelukast 10 mg oral tablet (20 sources)Leukotriene Receptor AntagonistStart: 23-01-0106pkyt 1 tablet by mouth once dailySingulair 10 mg Tab 10 mg = 1 tab(s), Oral, Daily, Refills(s) 0 Start Date: 11/21/24 Status: Ordered Repeat number: 1Start: 59-66-0605kgrb 1 tablet by mouth once daily at bedtimeMontelukast 10 mg tablet Active 0 .ROUTE .COMPLEX 90 3 December 17, 2023 9:45pm TAKE 1 TABLET BY MOUTH EVERYDAY AT BEDTIME Complies with drug therapyStart: 12-17-2023 End: 38-24-4591bwzn 1 tablet by mouth once dailyMontelukast 10 mg tablet Discontinued 10 MG PO Daily December 17, 2023 1:00am December 17, 2023 9:45pm Start: 62-64-4284nlfzrzvwtnb (SINGULAIR) 10 mg tablet Take by mouth every 24 hours. 0 10/08/2021 Activenaproxen 500 mg oral tablet (2 sources)Nonsteroidal Anti-inflammatory DrugStart: 05-21-2024 End: 71-48-5872hehg 1 tablet by mouth in the morning, [...] mg oral tablet (4 sources)Serotonin-3 Receptor AntagonistStart: 36-55-1443gkya 1 tablet by mouth every eight hours as needed for nausea and vomitingondansetron (ZOFRAN) 4 mg tablet Take 1 tablet (4 mg total) by mouth every 8 (eight) hours as needed for nausea or vomiting. 20 tablet 05/21/2024 Activepantoprazole 40 mg delayed release oral tablet (4 sources)Proton Pump InhibitorStart: 43-43-8478tqgq 1 tablet by mouth in the morningpantoprazole (PROTONIX) 40 mg EC tablet Take 1 tablet (40 mg total) by mouth in the morning. 10 tablet 05/21/2024 Activetamsulosin (20 sources)alpha-Adrenergic BlockerStart: 15-17-8160giecjcgpuv as directed, Refills(s) 0 Start Date: 11/21/24 Status: Ordered Repeat number: 1Start: 09-18-2023 End: 62-14-4510rqez 1 capsule by mouth once dailyTamsulosin 0.4 mg capsule Active 0 .ROUTE .COMPLEX 90 3 September 16, 2024 8:11am TAKE 1 CAPSULE BY MOUTH EVERY DAY FOR 90 DAYS Complies with drug therapyStart: 09-22-2022 End: 44-45-3037jcsh 1 capsule by mouth once dailyTamsulosin 0.4 mg capsule Discontinued 0.4 MG PO Daily September 18, 2023 12:00am September 18, 2023 8:39am tamsulosin (Flomax) 0.4 MG 24 hr capsule Activetelmisartan 20 mg oral tablet (2 sources)Angiotensin 2 Receptor BlockerStart: 26-88-6169tfuj 1 tablet by mouth once dailytelmisartan 20 mg oral tablet 20 mg = 1 tab(s), Oral, Daily, Refills(s) 0 Start Date: 12/05/24 Status: Ordered Repeat number: 1Start: 75-79-5657giwc 1 tablet by mouth once dailyTelmisartan 20 mg tablet Active 20 MG PO Daily December 03, 2024 12:00am Complies with drug therapy Problems Active Problems Problem ClassificationProblemDateDocumented DateEpisodic/ChronicAbdominal pain (8 sources)Left lower quadrant pain; Translations: [Left inguinal pain]Onset: 92-45-6901SrxvjhabNfzuwe (9 sources)Mild intermittent asthma; Translations: [Mild intermittent asthma, uncomplicated]15-31-8569LelusvyUmtombhjgl and other anemia (4 sources)Iron deficiency anemia; Translations: [Iron deficiency anemia, unspecified]Onset: 712262-61-8016MycbrnneOvsvwddwpi disorders (10 sources)Gastroesophageal reflux disease without esophagitis; Translations: [Gastro-esophageal reflux disease without esophagitis]Onset: 12-05-2024 20-62-1181UbtgmebBjqcgpkuhsfiq symptoms and ill-defined conditions (6 sources)Delay when starting to pass urine; Translations: [Hesitancy of micturition]EpisodicHeart valve disorders (3 sources)Heart murmur; Translations: [Cardiac murmur, unspecified]11-04-2024 EpisodicHyperplasia of prostate (11 sources)Lower urinary tract symptoms due to benign prostatic hypertrophy; Translations: [Benign prostatic hyperplasia with lower urinary tract symptoms] ChronicJoint disorders and dislocations; trauma-related (20 sources)Other articular cartilage disorders, left hip; Translations: [Acetabular labrum tear]Onset: 150610-20-7136DaeascbZaeggiusvvx chest pain (4 sources)Chest pain; Translations: [Chest pain, unspecified]91-56-5014Kyryvqvo Other aftercare (1 source)Postoperative visit; Translations: [Encounter for other specified surgical aftercare]93-82-3805NlxddemzZdxij aftercare (1 source)Encounter for other specified surgical aftercare; Translations: [Encounter for other specified surgical aftercare]Onset: 95-52-5844ChktrsorArvqu injuries and conditions due to external causes (6 sources)Other specified injuries of abdomen, subsequent encounter; Translations: [OTH SPEC INJURIES ABD SUBSEQUENT]Onset: 61-64-6567TbgusgguJvjpj lower respiratory disease (4 sources)Dyspnea; Translations: [Dyspnea, unspecified]34-06-1872Jorbtyvp Comment on above:Echo: LVEF 55%, normal RV size/function - 11/2024Other nervous system disorders (1 source)Other acute postprocedural pain; Translations: [Other acute postprocedural pain]Onset: 35-61-6762SzseczqcKewnt non-traumatic joint disorders (20 sources)Hip pain; Translations: [Pain in left hip]Onset: 09-27-2023 70-76-6438HozhpeokFjyav non-traumatic joint disorders (20 sources)Pain in right hip joint; Translations: [Pain in right hip]Onset: 138043-69-8751KmyvaqnvXnzrt non-traumatic joint disorders (20 sources)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; Translations: [Other specified joint disorders, left hip]Onset: 849708-92-2327Puydnrbf Other non-traumatic joint disorders (4 sources)Enthesopathy of hip region; Translations: [Other specified joint disorders, left hip]39-99-8219SkdekkksBkabb nutritional; endocrine; and metabolic disorders (1 source)Vmblnpdqng19-82-9587HccmynneKuutp nutritional; endocrine; and metabolic disorders (1 source)Overweight in adulthood with body mass index of 25 or more but less than 4010-63-5198QaorsibqXtvfi screening for suspected conditions (not mental disorders or infectious disease) (20 sources)Encounter for screening for malignant neoplasm of prostate; Translations: [Encounter for screening for malignant neoplasm of colon]Onset: 92-06-9048AstvospyVxsgkhx on above:PSA: 1.58 - 12/2022, 1.59 - SA: 1.58 - 12/2022, 1.59 - 12/2023, 1.46 - 10/2024Other upper respiratory disease (4 sources)Allergic rhinitis due to pollen; Translations: [Allergic rhinitis due to pollen]ChronicOther upper respiratory disease (1 source)Allergic hvsyqtkt83-11-4958UhojoguLixtvngpqqdh (3 sources)CONTACT W/AND (SUSP) EXPOS COVID-19; Translations: [CONTACT W/AND (SUSP) EXPOS COVID-19]Onset: 20-83-7425Wtjbusyuxeuy (1 source)Femoroacetabular impingement of left hip [M25.852]Onset: 05-21-2024 Unclassified (1 source)Post-opOnset: 58-49-1072Rboxsmbiemxi (1 source)New PatientOnset: 12-18-2023 Past or Other Problems Problem ClassificationProblemDateDocumented DateEpisodic/ChronicOther non- traumatic joint disorders (20 sources)Femoral acetabular impingement; Translations: [Other specified joint disorders, unspecified hip]Onset: 233540-82-0769XgvidppcPqccf non- traumatic joint disorders (3 sources)Other specified joint disorders, left hip; Translations: [Other specified joint disorders, left hip]Onset: 30-45-7604ClirehynDetkl non-traumatic joint disorders (2 sources)Other specified joint disorders, unspecified hip; Translations: [Other specified joint disorders, unspecified hip]Onset: 92-54-6505CobgvortZzbnp non-traumatic joint disorders (2 sources)Pain in left hip; Translations: [Pain in left hip]Onset: 12-18-2023 EpisodicResidual codes; unclassified (1 source)PainOnset: 54-99-0091WbfrxgsjFbffzyxrwztz (1 source)CONTACT W/AND (SUSP) EXPOS COVID-19; Translations: [CONTACT W/AND (SUSP) EXPOS COVID-19]Onset: 02-15-2021 Results Test NameValueInterpretationReference RangeFacilityAmbulatory Visit Summaryon 66-38-6507Coallenely Visit SummaryAmbulatory Visit Summary ANJUMJanesHENRIK :1975 Visit [...] signed up for this yet, please contact [employer] at [phone] to get signed up today. Language Information Language assistance services are available as needed. NormalWilson Medical Centerer [facility] And HospitalBasophils Auto (Bld) [#/Vol] Ordered By: Luther Morris on 25-93-5482Btplxsdoy (Bld) [#/Vol]0.0 10 3/uL0.0-0.1 [facility] CenterBasophils/100 WBC Auto (Bld)Ordered By: Luther Morris on 13-48-7401Bxtmhqlpn/100 WBC (Bld)0.5 %0.2-2.0[facility] CenterEosinophils/100 WBC Auto (Bld)Ordered By: Luther Morris on 96-16-3680Khclugwjotm/100 WBC (Bld)1.8 %0.9-7.0[facility] Erythrocyte distribution width Auto (RBC) [Ratio]Ordered By: Luther Morris on 16-24-6150Vmpeegjapvv distribution width (RBC) [Ratio]22.3 %High11.0-15.0 [facility] CenterHematocrit Auto (Bld) [Volume fraction]Ordered By: Luther Morris on 79-23-6117Kbzidcvdch (Bld) [Volume fraction]40.9 %Low 42.0-54.0[facility] CenterHemoglobin [Mass/volume] in Blood Ordered By: Luther Morris on 94-63-7368Prgxyqdthj (Bld) [Mass/Vol]12.4 g/dLLow 14.0-18.0[facility] CenterIron binding capacity [Mass/volume] in Serum or PlasmaOrdered By: Luther Morris on 36-48-7838Wswu binding capacity [Mass/Vol]401.0 ug/dL250.0-450.0[facility] CenterIron saturation [Mass Fraction] in Serum or PlasmaOrdered By: Luther Morris on 32-00-3853Xyyg saturation [Mass fraction]6.5 %[facility] CenterLaboratory - Chemistry and Chemistry - challengeOrdered By: Luther Morris on 11-18-2024 Ferritin [Mass/Vol]33.0 ng/mL26.0-388.0[facility] CenterIron [Mass/Vol]26.0 ug/dLLow65.0-175.0[facility] CenterLaboratory - Hematology and Cell countsOrdered By: Luther Morris on 14-93-3734Ycnosqff granulocytes/100 WBC (Bld)0.5 %0.0-0.5FSelect Medical Specialty Hospital [facility] Leukocytes [#/volume] corrected for nucleated erythrocytes in Blood by Automated counOrdered By: Luther Morris on 71-16-5151DUS corrected for nucl RBC Auto (Bld) [#/Vol]6.6 10 3/uL4.0-11.0[facility] CenterLymphocytes Auto (Bld) [#/Vol]Ordered By: Luther Morris on 90-01-5907Teavvlvayyw (Bld) [#/Vol]1.7 10 3/uL1.2-3.8[facility] CenterLymphocytes/100 WBC Auto (Bld)Ordered By: Luther Morris on 79-33-1158Eonpbjiphpg/100 WBC (Bld)26.2 % 20.5-60.0[facility] HospitalH Auto (RBC) [Entitic mass]Ordered By: Luther Morris on 84-46-4887QTL (RBC) [Entitic mass]23.1 pgLow25.9-34.0 [facility] CenterMCHC Auto (RBC) [Mass/Vol]Ordered By: Luther Morris on 65-54-1125OGBT (RBC) [Mass/Vol]30.3 g/dL29.9-35.2FSelect Medical Specialty Hospital - YoungstownMCV Auto (RBC) [Entitic vol]Ordered By: Luther Morris on 77-79-6326SYS (RBC) [Entitic vol]76.3 fLLow80.0-94.0[facility] CenterMonocytes Auto (Bld) [#/Vol]Ordered By: Luther Morris on 11-18-2024 Monocytes (Bld) [#/Vol]0.7 10 3/uL0.3-0.8[facility] Monocytes/100 WBC Auto (Bld)Ordered By: Luther Morris on 73-63-2960Rhikulxkn/100 WBC (Bld)10.7 %1.7-12.0[facility] CenterNeutrophils Auto (Bld) [#/Vol]Ordered By: Luther Morris on 53-54-1056Dvnfzvgzchj (Bld) [#/Vol]4.0 10 3/uL1.4-6.5FSelect Medical Specialty Hospital - YoungstownNeutrophils/100 WBC Auto (Bld) Ordered By: Luther Morris on 28-55-2813Knxuqirzknh/100 WBC (Bld)60.3 %43.0-75.0 [facility] CenterNo Panel InformationOrdered By: Luther Morris on 03-44-2677Tjynufvsjeh # (Auto)0.1 10 3/uL0.0-0.7FSelect Medical Specialty Hospital - YoungstownImmature Granulocyte # (Auto)0.03 10 3/uL0.00-0.03[facility] CenterPlatelet mean volume Auto (Bld) [Entitic vol]Ordered By: Luther Morris on 36-17-5360Idxmakhl mean volume (Bld) [Entitic vol]10.7 fL9.5-13.5 [facility] CenterPlatelets Auto (Bld) [#/Vol]Ordered By: Luther Morris on 33-91-9023Hkzyejyzy (Bld) [#/Vol]300 10 3/nF890-810AytduaordCincinnati Children'S Hospital Medical CenterRBC Auto (Bld) [#/Vol]Ordered By: Luther Morris on 70-34-2065XST (Bld) [#/Vol]5.36 10 6/uL4.70-6.10[facility] CenterReticulocytes/100 RBC Auto (Bld)Ordered By: Luther Morris on 11-18-2024 Reticulocytes/100 RBC (Bld)2.98 %0.60-3.10[facility] Basophils Auto (Bld) [#/Vol]Ordered By: Luther Morris on 41-79-3531Jtpktkwfc (Bld) [#/Vol]0.0 10 3/uL0.0-0.1FSelect Medical Specialty Hospital - YoungstownBasophils/100 WBC Auto (Bld)Ordered By: Luther Morris on 08-54-3450Jwryorhkq/100 WBC (Bld)0.5 %0.2-2.0[facility] CenterEosinophils/100 WBC Auto (Bld)Ordered By: Luther Morris on 67-23-4395Xyucpnacfqp/100 WBC (Bld)0.9 %0.9-7.0[facility] CenterErythrocyte distribution width Auto (RBC) [Ratio]Ordered By: Luther Morris on 81-49-7394Laybwzuajvr distribution width (RBC) [Ratio]17.1 %High11.0-15.0[facility] CenterFibrin D-dimer [Presence] in Platelet poor plasma by Latex agglutinationOrdered By: Luther Morris on 22-07-9292Irxewg D-dimer LA Ql (PPP)0.19 mg/L FEU<=0.59[facility] Medical CenterComment on above:Increases in D-Dimer concentration observed withthromboembolic [...] Calc (S) [Mass/Vol]Ordered By: Luther Morris on 62-73-9352Eagkymxd (S) [Mass/Vol]3.7 g/dLCincinnati Children'S Hospital Medical Center Glomerular filtration rate (GFR) estimation in non- AmericanOrdered By: Luther Morris on 30-39-7908BVL/1.73 sq M.predicted among non-blacks MDRD (S/P/Bld) [Vol rate/Area]mL/min/{1.73_m2}>=60 mL/min/1.73m 2FSelect Medical Specialty Hospital - YoungstownHematocrit Auto (Bld) [Volume fraction]Ordered By: Luther Morris on 25-34-9736Sxmlqheyfv (Bld) [Volume fraction]35.9 %Low42.0-54.0[facility] CenterHemoglobin [Mass/volume] in BloodOrdered By: Luther Morris on 84-61-5284Dporspukcw (Bld) [Mass/Vol]10.9 g/dLLow14.0-18.0[facility] CenterLaboratory - Chemistry and Chemistry - challengeOrdered By: Luther Morris on 20-47-9336Qkfimqz [Mass/Vol]3.8 g/dL3.4-5.0[facility] CenterALP [Catalytic activity/Vol]84 U/H28-230OeppcedpaCincinnati Children'S Hospital Medical CenterALT [Catalytic activity/Vol]33 U/K32-22PvlyagzjpCincinnati Children'S Hospital Medical CenterAST [Catalytic activity/Vol]21 U/C38-34TngoewpozCincinnati Children'S Hospital Medical CenterBilirubin [Mass/Vol]0.6 mg/dL0.2-1.0[facility] Calcium [Mass/Vol]8.6 mg/dL8.5-10.1FSelect Medical Specialty Hospital - YoungstownChloride [Moles/Vol]102 mmol/B23-928MpxqnrzhlCincinnati Children'S Hospital Medical CenterCO2 [Moles/Vol]24.6 mmol/L21.0-32.0[facility] CenterCreatinine [Mass/Vol]1.10 mg/dL 0.70-1.30[facility] CenterGFR/1.73 sq M.predicted MDRD (S/P/Bld) [Vol rate/Area]mL/min/{1.73_m2}>=60 mL/min/1.73m 2FSelect Medical Specialty Hospital - YoungstownGlucose [Mass/Vol]152 mg/qEMibp24-063TemejvrlvCincinnati [facility]'S Hospital [facility] Center Potassium [Moles/Vol]3.3 mmol/LLow3.5-5.1FSelect Medical Specialty Hospital - [place] Protein [Mass/Vol]7.5 g/dL6.4-8.2FMartin Memorial Hospitalodium [Moles/Vol]134 mmol/HSqo407-024GgnexjpnoCincinnati Children'S Hospital Medical CenterTSH Qn1.168 m[IU]/L0.358-3.740[facility] CenterUrea nitrogen [Mass/Vol]13.0 mg/dL7.0-18.0[facility] CenterUrea nitrogen/Creatinine [Mass ratio]11.8 mg/mgCincinnati Children'S Hospital Medical CenterLaboratory - Hematology and Cell countsOrdered By: Luther Morris on 84-05-0834Vlzrlzoi granulocytes/100 WBC (Bld)0.4 %0.0-0.5FSelect Medical Specialty Hospital - YoungstownLeukocytes [#/volume] corrected for nucleated erythrocytes in Blood by Automated counOrdered By: Luther Morris on 50-43-6710GBU corrected for nucl RBC Auto (Bld) [#/Vol]5.7 10 3/uL4.0-11.0[facility] CenterLymphocytes Auto (Bld) [#/Vol] Ordered By: Luther Morris on 60-37-5216Fmneolspsif (Bld) [#/Vol]1.7 10 3/uL 1.2-3.8[facility] CenterLymphocytes/100 WBC Auto (Bld)Ordered By: Luther Morris on 42-46-5687Dqsftjodrpb/100 WBC (Bld)29.8 %20.5-60.0[facility] CenterMCH Auto (RBC) [Entitic mass]Ordered By: Luther Morris on 12-24-6258XKZ (RBC) [Entitic mass]22.2 pgLow25.9-34.0[facility] CenterMCHC Auto (RBC) [Mass/Vol]Ordered By: Luther Morris on 11-04-2024 MCHC (RBC) [Mass/Vol]30.4 g/dL29.9-35.2FNewark HospitalV Auto (RBC) [Entitic vol]Ordered By: Luther Morris on 47-49-8421BFN (RBC) [Entitic vol]73.3 fLLow80.0-94.0[facility] CenterMonocytes Auto (Bld) [#/Vol]Ordered By: Luther Morris on 46-32-5089Hifkekexz (Bld) [#/Vol]0.4 10 3/uL 0.3-0.8[facility] CenterMonocytes/100 WBC Auto (Bld)Ordered By: Luther Morris on 49-27-3064Hthgwlxoe/100 WBC (Bld)7.8 %1.7-12.0[facility] CenterNeutrophils Auto (Bld) [#/Vol]Ordered By: Luther Morris on 70-77-6875Nhuxtheshqi (Bld) [#/Vol]3.4 10 3/uL1.4-6.5FSelect Medical Specialty Hospital - YoungstownNeutrophils/100 WBC Auto (Bld)Ordered By: Luther Morris on 61-49-0796Fxgiodhkmlb/100 WBC (Bld)60.6 %43.0-75.0[facility] CenterNo Panel InformationOrdered By: Luther Morris on 27-47-0350Lblsuhwpafs # (Auto)0.1 10 3/uL0.0-0.7FSelect Medical Specialty Hospital - YoungstownImmature Granulocyte # (Auto)0.02 10 3/uL0.00-0.03[facility] CenterProstate Specific Antigen Screen1.46 ng/mL<=4.00[facility] CenterTroponin I High Sensitivity8.3 pg/mL4.0-76.1FSelect Medical Specialty Hospital - YoungstownComment on above: CUT-OFF POINTS HAVE BEEN ESTABLISHED [...] (Bld) [Entitic vol]Ordered By: Luther Morris on 64-05-5291Gauqdiam mean volume (Bld) [Entitic vol]10.7 fL 9.5-13.5FSelect Medical Specialty Hospital - YoungstownPlatelets Auto (Bld) [#/Vol]Ordered By: Luther Morris on 85-52-6018Rsefhkkmx (Bld) [#/Vol]348 10 3/nW972-549ExqbbmkmyCincinnati Children'S Hospital Medical CenterRBC Auto (Bld) [#/Vol]Ordered By: Luther Morris on 67-97-4718OBI (Bld) [#/Vol]4.90 10 6/uL4.70-6.10[facility] Southeast Ohioerum or plasma albumin/globulin mass ratioOrdered By: Luther Morris on 02-59-2676Ofoulwz/Globulin [Mass ratio]1.0 {ratio}[facility] Ohioerum or plasma anion gap determinationOrdered By: Luther Morris on 66-63-8782Kkhic gap [Moles/Vol]10.7 mmol/LFSelect Medical Specialty Hospital - YoungstownBasic Metabolic Raygoza w/Rfx A1Con 33-83-9168UVV/1.73 sq M.predicted MDRD (S/P/Bld) [Vol rate/Area]mL/min/{1.73_m2}NormalThe [facility] Hospital Physician GroupComment on above: Performed By: #### REVA LIPID, EMP BMP #### [facility] [address] [place] [address] USACalcium [Mass/volume] in Serum or PlasmaOrdered By: Jorge David on 76-51-9767Urlvghi [Mass/Vol]9.4 mg/dL8.6-10.3FSelect Medical Specialty Hospital - YoungstownComment on above:Performed By: #### EBS LIPID, EMP BMP #### [facility] [address] [place] [address] USACarbon dioxide, total [Moles/volume] in Serum or Plasma Ordered By: Jorge David on 42-53-5310BE3 [Moles/Vol]25.7 mmol/L21.0-31.0 [facility] CenterComment on above:Performed By: #### EBS LIPID, EMP BMP #### [facility] [address] [place] [address] USAChloride [Moles/volume] in Serum or PlasmaOrdered By: Jorge David on 64-02-1878Imxgpdte [Moles/Vol]105 mmol/X24-371LyaagsztnCincinnati Children'S Hospital Medical CenterComment on above:Performed By: #### EBS LIPID, EMP BMP #### [facility] [address] [place] [address] USACholesterol [Mass/volume] in Serum or PlasmaOrdered By: Jorge David on 12-71-5190Pbtyjrirpcz [Mass/Vol]205 mg/iBZfhr851-308HuglchomuCincinnati Children'S Hospital Medical CenterComment on above:Chol less than 200 mg/dl low riskChol 201-239 mg/dl borderline riskChol 240 mg/dl and greater high riskResult Comment: Chol less than 200 mg/dl low risk Chol 201-239 mg/dl borderline risk Chol 240 mg/dl and greater high riskPerformed By: #### EBS LIPID, EMP BMP #### [facility] [address] [place] [address] USACholesterol in HDL [Mass/volume] in Serum or PlasmaOrdered By: Jorge David on 70-05-6992Fuwrjrrwajr in HDL [Mass/Vol]46 mg/dL23-92 [facility] Medical CenterComment on above:HDL CHOL ATP-III CLASSIFICATION Cardiovascular RiskHDL > or equal to 60 mg/dL LOWHDL < 40 mg/dL HIGHResult Comment: HDL CHOL ATP-III CLASSIFICATION Cardiovascular Risk HDL > or equal to 60 mg/dL LOW HDL < 40 mg/dL HIGHPerformed By: #### EBS LIPID, EMP BMP #### [facility] [address] [place] [address] USACholesterol in LDL Calc [Mass/Vol]Ordered By: Jorge David on 04-32-9800Bcunlciwlal in LDL [Mass/Vol]126 mg/dLHigh0-100C[facility] Hospital Medical CenterComment on above:LDL ATP III CLASSIFICATIONLDL less than 100 mg/dL OptimalLDL 100-129 mg/dL Near or above tbwpuqiICN350-735 mg/dL Borderline highLDL 160-189 mg/dL HighLDL greater than 189 mg/dL Very high Cholesterol in VLDL Calc [Mass/Vol]Ordered By: Jorge David on 10-10-2024 Cholesterol in VLDL [Mass/Vol]32 mg/dLCincinnati Children'S Hospital Medical Center Creatinine [Mass/volume] in Serum or PlasmaOrdered By: Jorge David on 83-98-7191Cvovekthzs [Mass/Vol]1.05 mg/dL0.70-1.30C[facility] Hospital Medical CenterComment on above:Performed By: #### EBS LIPID, EMP BMP #### [facility] [address] [place] [address] USAGlomerular filtration rate [Volume Rate/Area] in Serum, Plasma or Blood by CreatinineOrdered By: Jorge David on 46-37-2480Ddvulvcejj filtration rate [Volume Rate/Area] in Serum, Plasma or Blood by Creatinine> 60.0 mL/MinCincinnati Children'S Hospital Medical CenterGlucose [Mass/volume] in Serum or Plasma Ordered By: Jorge David on 27-89-9577Amyqbjf [Mass/Vol]93 mg/yY19-108TpouspepuCincinnati Children'S Hospital Medical CenterComment on above:Performed By: #### EBS LIPID, EMP BMP #### [facility] [address] [place] [address] USALipid Profileon 57-78-4112XKR Cholesterol,Lcsrwkxmiz625 mg/dLHigh0-100The [facility] Physician GroupComment on above:Result Comment: LDL ATP III CLASSIFICATION LDL less than 100 mg/dL Optimal LDL 100-129 mg/dL Near or above optimal LDL 130-159 mg/dL Borderline high LDL 160-189 mg/dL High LDL greater than 189 mg/dL Very highPerformed By: #### EBS LIPID, EMP BMP #### [facility] [address] [place] [address] USATriglyceride w/Dsoyox197 mg/dLHigh0-149The [facility] Hospital Physician GroupComment on above:Result Comment: TRIG ATP III CLASSIFICATION TRIG less than 150 mg/dL Normal TRIG 150-199 mg/dL Borderline high TRIG 200-500 mg/dL High TRIG greater than 500 mg/dL Very high Standard traceable to the Center for Disease Conrtrol and Prevention (CDC) test method.Performed By: #### EBS LIPID, EMP BMP #### [facility] [address] [place] [address] USAVLDL PSOAPSZDNMK74 mg/dLNoLevine Children's Hospital Physician GroupComment on above:Performed By: #### EBS LIPID, EMP BMP #### [facility] [address] [place] [address] USANo Panel InformationOrdered By: Jorge David on 84-76-6230Bfyonezm Creatinine Clearance (ChemN/[facility] CampusPotassium [Moles/volume] in Serum or PlasmaOrdered By: Jorge David on 61-15-9993Plvdvmtrh [Moles/Vol]4.6 mmol/L3.5-5.1FSelect Medical Specialty Hospital - YoungstownComment on above:Performed By: #### REVA LIPID, EMP BMP #### [place] [address] USASerum or plasma anion gap determinationOrdered By: Jorge Dvaid on 24-72-4609Flyaf gap [Moles/Vol]10.9 mmol/L6.0-15.0C[facility] Hospital Medical CenterComment on above:Performed By: #### EBS LIPID, EMP BMP #### [place] [address] USASerum or plasma total cholesterol/high density lipoprotein (HDL) cholesterol mass ratOrdered By: Jorge David on 10-10-2024 Cholesterol.total/Cholesterol in HDL [Mass ratio]4.5 {ratio}<5.0C[facility] Hospital Medical CenterComment on above:Result Comment: PERFORMED BY: [place] [id number] PATHOLOGIST MACHINE PROGRAMMER WENDI KAYE M.D.Performed By: #### EBS LIPID, EMP BMP #### [place] [address] USASodium [Moles/volume] in Serum or PlasmaOrdered By: Jorge David on 58-82-5480Bnjppu [Moles/Vol]137 mmol/F310-696JmymncdsbCincinnati Children'S Hospital Medical CenterComment on above:Performed By: #### EBS LIPID, EMP BMP #### [facility] [address] [place] [address] USATriglyceride [Mass/volume] in Serum or PlasmaOrdered By: Jorge David on 48-48-8974Hpbftcycwohx [Mass/Vol]164 mg/dLHigh0-149[facility] Medical CenterComment on above:TRIG ATP III CLASSIFICATIONTRIG less than 150 mg/dL NormalTRIG 150-199 mg/dL Borderline highTRIG 200-500 mg/dL High TRIG greater than 500 mg/dL Very highStandard traceable to the Center for Disease Conrtrol and Prevention (CDC) test method.Urea nitrogen [Mass/volume] in Serum or PlasmaOrdered By: Jorge David on 50-86-4017Rfvb nitrogen [Mass/Vol] 14 mg/dL7-25C[facility] Hospital Medical CenterComment on above:Performed By: #### EBS LIPID, EMP BMP #### [facility] [address] [place] [address] USAXR Pelvis and Hip - left 2 Viewson [id number] and lateral x-rays left hip reviewed stable appearing joint space no acute osseous abnormalities this is my independent interpretation.MANUALLY TRANSCRIBED RESULTSParkview Health [facility] HospitalRadiology Study observation (narrative)[facility] CampusAcopio [facility]ckerville Community HospitalCT HIP LT WO CONTon [id number] HIP LT WO CONTCT HIP LT WO [...] by Nestor Ricketts MD on 03/10/2024 5:58 [facility] HospitalMR ARTHROGRAM HIP LT W CONTon [id number] ARTHROGRAM HIP LT W CONTMR ARTHROGRAM HIP [...] by Tacos Cornelius MD on 01/22/2024 9:49 [facility] HospitalFL MR/CT ARTHROGRAM HIP LT W INJon [id number] MR/CT ARTHROGRAM HIP LT W INJFL MR/CT [...] by Solo Vera MD on 01/21/2024 3:00 [facility] HospitalXR Pelvis and Hip - left 2 Viewson 11-36-7723UT, 45 degree Flowers lateral, and false profile x-rays of the left hip were obtained in the office today. 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 Tonus grade 1 no acute osseous abnormalities. MANUALLY TRANSCRIBED [facility], Old BridgeRadiology Study observation (narrative)[facility] [id number] Visit (GENSMN) HENRIK MENJIVAR ([id number]) 1975 M Date Time Provider Department 09/10/23 [...] Brad Hanna MD 09/14/2023 2:[address] [facility] Abdominal [facility] - HISTORY AND PHYSICAL Chief Complaint: [...] no inguinal hernia found US - 08/15/23 Rwta-pv-onkflstp tendinosis adductor origin without tear or hyperemia. Synovial thickening of the anterior hip joint with mild hyperemia. Assessment: Henirk Menjivar is a 47 year old male [...] Order(s):CONSULT TO PHYSICAL THERAPY [9032] Order #: [id number]: 1 FUTURE Prescriptions as of 09/14/2023 - [...] Have you had unintention (more content not included)...NormalClinton Memorial HospitalUS HIP LTon [id number] HIP LT* * *Final Report* * * [...] with mild hyperemia. No joint effusion. IMPRESSION: Uaom-is-ihprklpg tendinosis adductor origin without tear or hyperemia. Synovial thickening of the anterior hip joint with mild hyperemia. Condominium Association Manager: [facility] Transcribe Date/Time: Aug 15 2023 1:52P Dictated by : SARAH GARDNER MD This examination was interpreted and the report reviewed and electronically signed by: SARAH GARDNER MD on Aug 15 2023 1:58PM EST [id number] VA Medical Center Hip - lefton 08-15-2023 IMPRESSION: Hsic-ej-dxhroraf tendinosis adductor origin without tear or hyperemia. Synovial thickening of the anterior hip joint with mild hyperemia. Condominium Association Manager: [facility] Transcribe Date/Time: Aug 15 2023 1:52P [...] hyperemia. No joint effusion. DIVISION OF RADIOLOGYProvider, [facility] [place] - 08/15/2023 * * *Final Report* * [...] mild hyperemia. No joint effusion. 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 Synovial thickening of the anterior hip joint with mild hyperemia. Condominium Association Manager: [facility] Transcribe Date/Time: Aug 15 2023 1:52P Dictated by : SARAH GARDNER MD This examination was interpreted and the report reviewed and electronically signed by: SARAH GARDNER MD on Aug 15 2023 1:58PM EST [facility] HospitalRadiology Study observation (narrative)[facility] Hip - leftOrdered By: Ccf Provider on 56-37-3075Libczjggd ClinicCNPNon 16-86-9848OPCV Telephone (RULTTB) HENRIK MENJIVAR ([id number]) 1975 M Date Time Provider Department 07/11/23 JACK FRANCE RUSTONY [facility] During your visit today, we recorded [...] (None) Encounter Status:Closed by NATALIA OLIVEIRA on 07/11/23NoBluffton Hospital 05-38-1996IEVUHiofur Visit (NELDA) ANJUMHENRIK Marrero ([id number]) 1975 M Date Time Provider Department 07/10/23 [...] Filomena Arreola MD 07/10/2023 11:[address] [facility] Abdominal [facility] - HISTORY AND PHYSICAL [...] chronic pain management Plan (more content not included)...NormalSelect Medical [facility] PHYSICALon [id number] PHYSICALHNO ID: [id number] Author: FILOMENA ARREOLA MD Service: ? Author Type: Resident Type: H&P Filed: 07/10/2023 11:12 Note Text: [facility]dominal [facility] - HISTORY AND PHYSICAL [...] MD General Surgery Resident, PGY-1 07/10/2023 10:23 AMNormalClinton Memorial HospitalMR PELVIS WO W CONon [id number] PELVIS WO W CONEXAMINATION: MRI PELVIS WO [...] Electronically authenticated by: BRAD NEW Date: 2021-12-16 15:05[facility] HospitalCT ABD/PELV W CONon [id number] ABD/PELV W CONEXAMINATION: CT ABD/PELV W CON, [...] Electronically authenticated by: BRAD NEW Date: 2021-06-17 16:50[facility] AUTO DIFFon 71-90-3496RKSN #0.0 103/ulNormal0.0-0.1[facility] Methodist HospitalComment on above:Performed By: #### CBC #### [facility] [address] [place] [address] Dr. Gala JohnsonBasophils/100 WBC (Bld)0.6 %Normal0.2-2.0[facility] Comment on above:Performed By: #### CBC #### [facility] [address] [place] [address] Dr. Gala Manuel #0.1 103/ulNormal0.0-0.7The [facility] Medical CenterComment on above: Performed By: #### CBC #### [facility] [address] [place] [address] Dr. Gala Lopezosinophils/100 WBC (Bld)1.2 %Normal0.9-7.0[facility] Comment on above:Performed By: #### CBC #### [facility] [address] [place] [address] Dr. Gala Lopezrythrocyte distribution width (RBC) [Ratio]13.1 %Ydjwur10.0-15.0 The [facility] CenterComment on above:Performed By: #### CBC #### [facility] [address] [place] [address] Dr. Gala JohnsonHematocrit (Bld) [Volume fraction]49.3 %Srruya32.0-54.0The [facility] CenterComment on above:Performed By: #### CBC #### [facility] [address] [place] [address] Dr. Gala JohnsonHemoglobin (Bld) [Mass/Vol]15.8 g/oOXecyuy01.0-18.0The [facility] CenterComment on above:Performed By: #### CBC #### [facility] [address] [place] [address] Dr. Gala Stone #0.02 10e3/ulNormal0.00-0.03The [facility] CenterComment on above:Performed By: #### CBC #### [facility] [address] [place] [address] Dr. Gala Stone %0.3 %Normal0.0-0.5The [facility] CenterComment on above: Performed By: #### CBC #### [facility] [address] [place] [address] Dr. Gala Keen #2.3 103/ulNormal1.2-3.8The [facility] CenterComment on above:Performed By: #### CBC #### [facility] [address] [place] [address] Dr. Gala Bellhocytes/100 WBC (Bld)33.5 %Hkrfqu53.5-60.0The [facility] CenterComment on above:Performed By: #### CBC #### [facility] [address] [place] [address] Dr. Gala VargasUAL DIFF REQNONormalThe [facility] CenterComment on above: Performed By: #### CBC #### [facility] [address] [place] [address] Dr. Gala Watts (RBC) [Entitic mass]30.3 gcEfxqyq35.9-34.0The [facility] CenterComment on above:Performed By: #### CBC #### [facility] [address] [place] [address] Dr. Gala Watts (RBC) [Mass/Vol]32.0 g/uDGesvnr88.9-35.2The [facility] CenterComment on above:Performed By: #### CBC #### [facility] [address] [place] [address] Dr. Gala Fagan (RBC) [Entitic vol]94.4 fLCritically high80.0-94.0The [facility] CenterComment on above:Performed By: #### CBC #### [facility] [address] [place] [address] Dr. Gala Yepez #0.6 103/ulNormal0.3-0.8The [facility] CenterComment on above:Performed By: #### CBC #### [facility] [address] [place] [address] Dr. Gala Randleocytes/100 WBC (Bld)8.3 %Normal1.7-12.0The [facility] Comment on above:Performed By: #### CBC #### [facility] [address] [place] [address] Dr. Gala Ochoa #3.8 103/ulNormal1.4-6.5The [facility] CenterComment on above:Performed By: #### CBC #### [facility] [address] [place] [address] Dr. Gala Boswellutrophils/100 WBC (Bld)56.1 %Lbthju06.0-75.0The [facility] CenterComment on above:Performed By: #### CBC #### [facility] [address] [place] [address] Dr. Gala Johnsonlet mean volume (Bld) [Entitic vol]11.9 fLNormal9.5-13.5The [facility] CenterComment on above:Performed By: #### CBC #### [facility] [address] [place] [address] Dr. Gala JohnsonPLT246 103/jxQtisgf267-268Xaa [facility] CenterComment on above: Performed By: #### CBC #### [facility] [address] [place] [address] Dr. Gala JohnsonRBC5.22 106/ulNormal4.70-6.10The [facility] on above:Performed By: #### CBC #### [facility] [address] [address] [address] Gala JohnsonWBC6.8 103/ulNormal4.0-11.0[facility] on above: Performed By: #### CBC #### [facility] [address] [address] [address] Gala JohnsonGLYCOHEMOGLOBIN A1Con 95-49-9270ILU RECOMMENDATIONSEE [facility] SouthCommclaren thumb region on above:Result Comment: ADA RECOMMENDED LIMIT 4.0 - 6.0 ADA THERAPEUTIC TARGET < 7.0 ACTION SUGGESTED > 7.0Performed By: #### A1C #### [facility] [address] [place] [address] Dr. Gala JohnsonGlucose [Mass/Vol]117 mg/dLNoParkview Health Bryan Hospital on above:Performed By: #### A1C #### [facility] [address] [place] [address] Dr. Gala JohnsonHbA1c (Bld) [Mass fraction]5.7 %Normal4.5-6.2[facility] on above:Performed By: #### A1C #### [facility] [address] [place] [address] Dr. Gala JohnsonLIPID PROFILEon 43-69-4896KIHV-HDL RATIO NORMSEE [facility] HospitalCommclaren thumb region on above:Result Comment: 3.3 - 4.4 LOW RISK 4.4 - 7.1 AVERAGE RISK 7.1 - 11.0 MODERATE RISK >11.0 HIGH RISKPerformed By: #### LIPID, TSH, CMP #### [facility] [address] [place] [address] Dr. Gala JohnsonCholesterol [Mass/Vol]236 mg/dLCritically high<=200[facility] on above:Performed By: #### LIPID, TSH, CMP #### [facility] [address] [place] [address] Dr. Gala JohnsonCholesterol in HDL [Mass/Vol]47 mg/kYLwygnl40-34IjcMagruder Memorial Hospital on above:Performed By: #### LIPID, TSH, CMP #### [facility] [address] [place] [address] Dr. Gala JohnsonCholesterol in LDL [Mass/Vol]134.0 mg/dLNoSelect Medical Specialty Hospital - CincinnatiCommclaren thumb region on above:Performed By: #### LIPID, TSH, CMP #### [facility] [address] [place] [address] Dr. Gala Ludwigesterbrian.total/Cholesterol in HDL [Mass ratio]5.0 {ratio} NormalThe [facility] on above:Performed By: #### LIPID, TSH, CMP #### [facility] [address] [place] [address] Dr. Gala Pulido NORMAL> or = 60 mg/dl - LOW CARDIOVASCULAR RISK <40 mg/dl - HIGH CARDIOVASCULAR RISKNoSelect Medical Specialty Hospital - CincinnatiCommclaren thumb region on above:Performed By: #### LIPID, TSH, CMP #### [facility] [address] [place] [address] Dr. Gala Martines CALC NORMALSEE BELOWTriHealth McCullough-Hyde Memorial HospitalCommclaren thumb region on above:Result Comment: <100 mg/dl OPTIMAL 100 - 129 mg/dl NEAR OR ABOVE OPTIMAL 130 - 159 mg/dl BORDERLINE HIGH 160 - 189 mg/dl HIGH >190 mg/dl VERY HIGH Performed By: #### LIPID, TSH, CMP #### [facility] [address] [place] [address] Dr. aGla JohnsonTriglyceride [Mass/Vol]275 mg/dLCritically high<=150[facility] on above:Performed By: #### LIPID, TSH, CMP #### [facility] [address] [place] [address] Dr. Gala JohnsonVLDL CALC55.0 mg/dLNoParkview Health Bryan Hospital on above: Performed By: #### LIPID, TSH, CMP #### [facility] [address] [place] [address] Dr. Gala JohnsonPROVinod 14(COMP METB)on 41-25-8995Hbipqzh [Mass/Vol]4.2 g/dLNormal 3.4-5.0The [facility] CenterComment on above:Performed By: #### LIPID, TSH, CMP #### [facility] [address] [address] [address] Gala JohnsonAlbumin/Globulin [Mass ratio]1.2 {ratio}NormalThe [facility] CenterComment on above:Performed By: #### LIPID, TSH, CMP #### [facility] [address] [address] [address] Gala JacobsenP [Catalytic activity/Vol]72 U/FPcgvtn90-211Ggk [facility] CenterComment on above:Performed By: #### LIPID, TSH, CMP #### [facility] [address] [place] [address] Dr. Gala Culver [Catalytic activity/Vol]30 U/HNzjryv38-39Kei [facility] CenterComment on above:Performed By: #### LIPID, TSH, CMP #### [facility] [address] [address] [address] Gala Piña gap [Moles/Vol]11.7 mmol/LNormalThe [facility] Comment on above:Performed By: #### LIPID, TSH, CMP #### [facility] [address] [place] [address] Dr. Gala JohnsonAST [Catalytic activity/Vol]18 U/HNhxpgk20-09Aqe [facility] CenterComment on above:Performed By: #### LIPID, TSH, CMP #### [facility] [address] [address] [address] Gala JohnsonBilirubin [Mass/Vol]0.7 mg/dLNormal0.2-1.0The [facility] Comment on above:Performed By: #### LIPID, TSH, CMP #### [facility] [address] [address] [address] Gala JohnsonCalcium [Mass/Vol]8.6 mg/dLNormal8.5-10.1The [facility] Comment on above:Performed By: #### LIPID, TSH, CMP #### [facility] [address] [address] [address] Gala JohnsonChloride [Moles/Vol]101 mmol/PTharmg26-408Rpt [facility] Comment on above:Performed By: #### LIPID, TSH, CMP #### [facility] [address] [address] [address] Gala JohnsonCO2 [Moles/Vol]29.1 mmol/ZMwjacx81.0-32.0The [facility] Comment on above:Performed By: #### LIPID, TSH, CMP #### [facility] [address] [address] [address] Gala JohnosnCreatinine [Mass/Vol]0.91 mg/dLNormal0.70-1.30The [facility] CenterComment on above:Performed By: #### LIPID, TSH, CMP #### [facility] [address] [place] [address] Dr. Gala LopezGFR-AF SUDANESE>60Normal>=60The [facility] CenterComment on above:Performed By: #### LIPID, TSH, CMP #### [facility] [address] [place] [address] Dr. Gala LopezGFR-NON AF SUDANESE>60Normal>=60The [facility] CenterComment on above:Performed By: #### LIPID, TSH, CMP #### [facility] [address] [place] [address] Dr. Gala JohnsonGlobulin (S) [Mass/Vol]3.4 g/dLNormalThe [facility] CenterComment on above:Performed By: #### LIPID, TSH, CMP #### [facility] [address] [place] [address] Dr. Gala JohnsonGlucose [Mass/Vol]86 mg/qCQrtwvb57-118Pjr [facility] Comment on above:Performed By: #### LIPID, TSH, CMP #### [facility] [address] [place] [address] Dr. Gala JohnsonPotassium [Moles/Vol]3.8 mmol/LNormal3.5-5.1The [facility] Comment on above:Performed By: #### LIPID, TSH, CMP #### [facility] [address] [place] [address] Dr. Gala JohnsonProtein [Mass/Vol]7.6 g/dLNormal6.1-8.2[facility] Comment on above:Performed By: #### LIPID, TSH, CMP #### [facility] [address] [place] [address] Dr. Gala JohnsonSodium [Moles/Vol]138 mmol/RBvvfhx762-886VzgOhiohealth Riverside Methodist Hospital Comment on above:Performed By: #### LIPID, TSH, CMP #### [facility] [address] [place] [address] Dr. Gala JohnsonUrea nitrogen [Mass/Vol]13.0 mg/dLNormal7.0-18.0[facility] HospitalComment on above:Performed By: #### LIPID, TSH, CMP #### [facility] [address] [place] [address] Dr. Gala Gomez nitrogen/Creatinine [Mass ratio]14.3 mg/mgNormalThBellevue HospitalComment on above:Performed By: #### LIPID, TSH, CMP #### [facility] [address] [place] [address] Dr. Gala Bee 70-75-4163ZSJ4.610 uIU/mLNormal0.470-4.680[facility] Methodist HospitalComment on above:Performed By: #### LIPID, TSH, CMP #### [facility] [address] [place] [address] Dr. Gala Hernandez [facility]ult[facility] HospitalComment on above: Result Comment: <0.34 UIU/ml HYPERTHYROID 0.34-5.60 UIU/ml EUTHYROID >5.60 UIU/ml HYPOTHYROIDPerformed By: #### LIPID, TSH, CMP #### [facility] [address] [place] [address] Dr. Gala Mojica RANDOM W/MICROSCOPICon 30-42-4702BVJRRJPJDFED SEENrmalNONE SEENOhiohealth Riverside Methodist HospitalComment on above:Performed By: #### UAMIC #### [facility] [address] [address] [address] Gala JohnsonBilirubin Ql (U)NegativeNormalNEGOhioHealth Marion General Hospital Comment on above:Performed By: #### UAMIC #### [facility] [address] [address] [address] Gala JohnsonCASTESSIE SEENNormalNONE SEENOhiohealth Riverside Methodist HospitalComment on above:Performed By: #### UAMIC #### [facility] [address] [address] [address] Gala JohnsonClarity (U)CLEARNormalCLEAROhiohealth Riverside Methodist HospitalComment on above: Performed By: #### UAMIC #### [facility] [address] [address] [address] Gala JohnsonColor (U)LT. YELLOWNormalYELLOWOhiohealth Riverside Methodist HospitalComment on above:Performed By: #### UAMIC #### [facility] [address] [place] [address] Dr. Gala JohnsonCrystals LM Nom (Urine sed)NONE SEENNormalNONE SEENOhiohealth Riverside Methodist HospitalComment on above:Performed By: #### UAMIC #### [facility] [address] [place] [address] Dr. Gala Cariaslial cells LM Ql (Urine sed)NONE SEENNormalNONE SEEN /RARE [facility] HospitalCommclaren thumb region on above:Performed By: #### UAMIC #### [facility] [address] [address] [address] Gala JohnsonGlucose Ql (U)NegativeNormalNEGATIVEOhiohealth Riverside Methodist HospitalComment on above:Performed By: #### UAMIC #### [facility] [address] [place] [address] Dr. Gala JohnsonHemoglobin Ql (U)NegativeNormalNEGATIVEOhiohealth Riverside Methodist Hospital Comment on above:Performed By: #### UAMIC #### [facility] [address] [place] [address] Dr. Gala JohnsonKetones Ql (U)NegativeNormalNEGATIVEThe [facility] HospitalComment on above:Performed By: #### UAMIC #### [facility] [address] [address] [address] Gala JohnsonLEUKOCYTESNegativeNormalNEGATIVEThe [facility] CenterComment on above:Performed By: #### UAMIC #### [facility] [facility] [address] [address] [address] Gala JohnsonMUCOUSNONE SEENNormalNONE SEENOhiohealth Riverside Methodist HospitalComment on above:Performed By: #### UAMIC #### [facility] [address] [place] [address] Dr. Gala Ngotrite Ql (U)NegativeNormalNEGATIVEThe [facility] Medical CenterComment on above:Performed By: #### UAMIC #### [facility] [address] [place] [address] Dr. Gala JohnsonpH (U)6.5 [pH]Normal5-9The [facility] CenterComment on above: Performed By: #### UAMIC #### [facility] [address] [place] [address] Dr. Gala JohnsonRBCNONE SEENAbnormal0-2The [facility] CenterComment on above: Performed By: #### UAMIC #### [facility] [address] [place] [address] Dr. Gala JohnsonSPEC GRAVITY1.583Akattq9.005-<=1.025The [facility] CenterComment on above:Performed By: #### UAMIC #### [facility] [address] [place] [address] Dr. Gala JohnsonUA PROTEINNegativeNormalNEGATIVE/ TRACEThe [facility] Comment on above:Performed By: #### UAMIC #### [facility] [address] [place] [address] Dr. Gala Hardingbilinogen Qn (U)0.2 {Tarun'U}/dLNormal0.2 - 1.0The [facility] CenterComment on above:Performed By: #### UAMIC #### [facility] [address] [place] [address] Dr. Gala JohnsonWBCNONE SEENNormalNONE SEENOhiohealth Riverside Methodist HospitalComment on above: Performed By: #### UAMIC #### [facility] [address] [place], [place] [address] Dr. Gala JohnsonCovid-19 PCR ([facility])on 21-13-9912FAFI-CoV-2 (COVID-19) RNA ABBY+probe Ql (Unsp spec)Not detectedNormalNOT DETECTEDThe [facility] Comment on above:Result Comment: When diagnostic testing is negative, the possibility of a false negative should be considered in the context of a patient's recent exposures and the presence of clinical signs and symptoms consistent with SARS-CoV-2. This test is not yet approved or cleared by the [place] Food and Drug Administration (FDA). This test was developed by [employer], [place], [place]. The performance characteristics of this test were validated by [facility]. The results are not intended to be used as the sole means for clinical diagnosis or patient management decisions. [facility] is authorized under Clinical Laboratory Improvement Amendments [...] for this test is supported by the [place] of Health and Human Service's declaration that [...] longer be used).Performed By: #### CVDTB #### [facility] [id number] Gala Johnson Vital Signs Date TimeVital SignValuePerforming TenwjwwboEcnysgpe98-04-2214 15:12-0400Body suwgsd521.72 cmBenjamin Ball DO Work Phone: [facility]10-22-2025 15:12-0400 Body mass index (BMI) [Ratio]30.4 kg/s9Stqxghol Ball DO Work Phone: [phone] [place], [place] 8343410-22-2025 15:12-0400 Body atfgkg26.77 kgBenjamin Ball DO Work Phone: [phone] [place], [place] 8343410-22-2025 15:12-0400 Diastolic blood mm[Hg]Luther Ball DO Work Phone: [phone] [place], [place] 8343410-22-2025 15:12-0400 Heart rate87 /minBenjamin Ball DO Work Phone: [phone] [place], [place] 8343410-22-2025 15:12-0400 Respiratory rate12 /minBenjamin Ball DO Work Phone: [phone] [place], [place] 8343410-22-2025 15:12-0400 Systolic blood iwfjlpmv141 mm[Hg]Luther Ball DO Work Phone: [phone] [place], [place] 8343409-23-2025 14:00-0400 Body .72 cmBenjamin Ball DO Work Phone: [phone] [place], [place] 8343409-23-2025 14:00-0400 Body mass index (BMI) [Ratio]29.8 kg/a5Cgglbdxf Ball DO Work Phone: [phone] [place], [place] 8343409-23-2025 14:00-0400 Body dsmasd45.01 kgBenjamin Ball DO Work Phone: [phone] [place], [place] 8343409-23-2025 14:00-0400 Diastolic blood hrqgzsiy37 mm[Hg]Luther Ball DO Work Phone: [phone] [place], [place] 8343409-23-2025 14:00-0400 Heart amls778 /minBenjamin Ball DO Work Phone: [phone] [place], [place] 8343409-23-2025 14:00-0400 Respiratory rate12 /minBenjamin Ball DO Work Phone: [phone] [place], [place] 8343409-23-2025 14:00-0400 Systolic blood sgrnimid030 mm[Hg]Luther Morris DO Work Phone: [facility]07-14-2025 12:52-0400 Body secbmf218.7 Dustin Pierce MD Work Phone: [facility]07-14-2025 12:52-0400Body mass index (BMI) [Ratio]29.19 kg/m2Jeana Pierce MD Work Phone: [facility]07-14-2025 12:52-0400Body .09 kgJeana Pierce MD Work Phone: [facility]05-20-2025 12:27-0400Body ixrehf387.7 Dustin Pierce MD Work Phone: [facility]05-20-2025 12:27-0400Body mass index (BMI) [Ratio]29.19 kg/m2Jeana Pierce MD Work Phone: [facility]05-20-2025 12:27-0400Body ccshga42.09 kgJeana Pierce MD Work Phone: [facility]04-22-2025 14:09-0400Body pmcuwe024.7 Dustin Pierce MD Work Phone: [facility]04-22-2025 14:09-0400Body mass index (BMI) [Ratio]29.19 kg/m2Jeana Pierce MD Work Phone: [facility]04-22-2025 14:09-0400Body nqupyt05.09 kgJeana Pierce MD Work Phone: [facility]03-24-2025 10:55-0400Body bioebb048.7 Dustin Pierce MD Work Phone: [facility]03-24-2025 10:55-0400Body mass index (BMI) [Ratio]29.19 kg/m2Jeana Pierce MD Work Phone: [facility]03-24-2025 10:55-0400Body tuzybu52.09 kgAnil Kari NICOLE Work Phone: [facility]11-05-2024 13:34-0500Body yasbye423.3 cmAnil Kari NICOLE Work Phone: [facility]11-05-2024 13:34-0500Body mass index (BMI) [Ratio]28.65 kg/m2Anil Kari NICOLE Work Phone: [facility]11-05-2024 13:34-0500Body kgAnil Kari NICOLE Work Phone: [facility]07-29-2024 10:31-0400Body .7 cmBrad Hanna MD Work Phone: c[facility] CenterMehntn83-47-4441 10:31-0400Body mass index (BMI) [Ratio]28.59 kg/q2OftfoBrad Hanna MD Work Phone: c[facility] CenterUcjkfw21-85-3819 10:31-0400Body temperature 98.29 [degF]Brad Hanna MD Work Phone: c[facility] CenterCuaejp03-44-6054 10:31-0400Body tevmvx74.28 kgBrad Hanna MD Work Phone: c[facility] CenterJowoii11-31-4721 10:31-0400Diastolic blood iykcqpit80 mm[Hg]Brad Hanna MD Work Phone: cL[facility] CenterRfbbfe89-20-4858 10:31-0400Heart rate75 /min Brad Hanna MD Work Phone: c[facility] CenterRpnyaz59-81-2213 10:31-0400Systolic blood skqycsca897 mm[Hg]Brad Hanna MD Work Phone: c[facility] CenterSuvhsl69-78-0332 10:06-0400Body .7 cmLuther Ann MD Work Phone: [facility]05-28-2024 10:06-0400Body mass index (BMI) [Ratio]27.83 kg/l4StywklnnLuther Ann MD Work Phone: [phone]05-28-2024 10:06-0400Body temperature 97.59 [degF]Luther Ann MD Work Phone: [phone]05-28-2024 10:06-0400Body pgbimw40.01 kgBevikram Ann MD Work Phone: [facility]05-28-2024 10:06-0400Diastolic blood gesblhwm40 mm[Hg]Luther Ann MD Work Phone: [facility]05-28-2024 10:06-0400Heart rate84 /min Luther Ann MD Work Phone: [phone]05-28-2024 10:06-0400Systolic blood qonwaqpv462 mm[Hg]Luther Ann MD Work Phone: [phone]08-11-2023 14:15-0400Body wsqloz116.72 cmBenjamin Ball Other [employer] Other 08-11-2023 14:15-0400Body mass index (BMI) [Ratio] 27.52 kg/x5Vchxtcpo Ball Other [employer] Other 08-11-2023 14:15-0400Body lnlpiw31.1 kgBenjamin Ball Other [employer] Other 08-11-2023 14:15-0400Diastolic blood ccvalasi34 mm[Hg] Luther Morris Other [employer] Other 08-11-2023 14:15-0400Respiratory rate12 /minBenjamin Ball Other [employer] Other 08-11-2023 14:15-0400Systolic blood hanrldek380 mm[Hg] Luther Morris Other [facility] [employer] Other Encounters Encounter DateEncounter TypeCare ProviderFacilityStart: 12-05-2024 End: 19-21-6026ptsudsscjkTnrygai R NILLFacility: [place]walkStart: 12-05-2024 End: 79-69-3882Yatlrtj encounter procedureMichael R NILL [phone][facility] [place] Start: 12-03-2024 End: 25-81-7123bmiqipmfcyGtotzjys Ball DO Work Phone: -[facility] ClinicStart: 12-03-2024 End: 88-10-6911Vdsqndk encounter procedureBentoyin Morris DO-[facility] Work Phone: Start: 12-03-2024 End: 29-90-3879Vmhuznn encounter statusBentoyin Morris [facility] Systemtart: 48-69-9494mafabecvjsPrmdigw NILLFacility: Nisreentart: 68-63-3305kivbqzxmrqVicaaoi NILLFacility:[facility] HospitalthereseueStart: 41-09-0467Opw-patient / Non-visitBentoyin Morris DO-[facility] [employer] Work Phone: Start: 11-04-2024 End: 88-84-5934nktuebnvktVgeobvrw Ball DO Work Phone: [facility] Work Phone: Start: 11-04-2024 End: 07-31-0870Aupfyjm encounter procedureBentoyin Morris DO-[facility] Work Phone: Start: 10-10-2024 End: 90-70-3923axmjaiccvkFilahzvh Ball DO Work Phone: [facility] Work Phone: Start: 10-10-2024 End: 25-83-4933Qewjzrxn Jalil David -[facility]World[facility] [address] Work Phone: start: 09-04-2024 End: 27-91-7385AvkxvfjdhBhguygls Wright MANAGER CLEANING Work Phone: noms FB PTComment on above:Left hip pain (Primary Dx); Femoroacetabular impingement of left hip; Articular cartilage disorder of left hipStart: 09-02-2024 End: 64-13-0098OjmkdpcwxKvqcrk Jeydesirae PTANOMS FB PTComment on above:Left hip pain (Primary Dx); Femoroacetabular impingement of left hip; Articular cartilage disorder of left hipStart: 08-29-2024 End: 69-28-1582QbikrwzvsSirydvot Lee MANAGER CLEANING Work Phone: noms FB PTComment on above:Left hip pain (Primary Dx); Femoroacetabular impingement of left hip; Articular cartilage disorder of left hipStart: 08-25-2024 End: 28-74-5892Iqjxps outpatient visit 15 minutesAnil Gwen Pierce MD Work Phone: [facility] [place] [facility] Spine SurgeonsComment on above:Femoroacetabular impingement of left hip (Primary Dx) Start: 08-25-2024 End: 50-19-6452gwnmaftkcfJJUF Gwen PIERCESumma Health [facility] PPGStart: 07-29-2024 End: 96-60-4507LtoegwautRtkgovyj Lee MANAGER CLEANING Work Phone: noms FB PTComment on above:Left hip pain (Primary Dx); Femoroacetabular impingement of left hip; Articular cartilage disorder of left hipStart: 07-29-2024 End: 82-70-5871Twrazt Onur Lee MANAGER CLEANING Work Phone: noms FB PTStart: 07-29-2024 End: 19-71-4342Pmriik Onur Lee MANAGER CLEANING Work Phone: noms FB PTStart: 07-22-2024 End: 26-15-7955WvqdpfrwwHrdogaxp Wright MANAGER CLEANING Work Phone: NOMS FB PTComment on above:Left hip pain (Primary Dx); Femoroacetabular impingement of left hip; Articular cartilage disorder of left hipStart: 07-22-2024 End: 82-36-7328Gnngas Onur Lee MANAGER CLEANING Work Phone: NOMS FB PTStart: 07-22-2024 End: 92-22-0068Mefvnl Onur Lee MANAGER CLEANING Work Phone: NOMS FB PTStart: 07-18-2024 End: 18-45-5198Yoddux flowspreetiKyian Savage PT Work Phone: NOMS FB PTStart: 07-18-2024 End: 92-83-2935Zkpjir flowspreetiKyian Willis Hussein PT Work Phone: NOMS FB PTStart: 07-18-2024 End: 65-35-6102VpyefseqcCwmx J Hussein PT Work Phone: NOMS FB PTComment on above:Left hip pain (Primary Dx); Femoroacetabular impingement of left hip; Articular cartilage disorder of left hipStart: 07-10-2024 End: 04-30-0023RwwfzwrdkKsliigyh Wright MANAGER CLEANING Work Phone: NOMS FB PTComment on above:Left hip pain (Primary Dx); Femoroacetabular impingement of left hip; Articular cartilage disorder of left hipStart: 07-10-2024 End: 85-91-7650Opvxar Onur Lee MANAGER CLEANING Work Phone: NOMS FB PTStart: 07-10-2024 End: 21-58-0163Foivjv Onur Lee MANAGER CLEANING Work Phone: NOMS FB PTStart: 07-01-2024 End: 99-83-4259Usxzkm flowspreetiKyian Savage PT Work Phone: NOMS FB PTStart: 07-01-2024 End: 94-57-5837Tvbquh flowsheetKyian J Hussein PT Work Phone: NORI FB PTStart: 07-01-2024 End: 20-03-4087Dfwdjo follow up visit related to original pxAnil Gwen Kari NICOLE Work Phone: [facility] [place] [facility] Spine SurgeonsComment on above:Postoperative visit (Primary Dx)Start: 07-01-2024 End: 62-61-6471BaijfqazjLmdp My Hood Hussein PT Work Phone: NOHW FB PTComment on above:Left hip pain (Primary Dx); Femoroacetabular impingement of left hip; Articular cartilage disorder of left hipStart: 06-27-2024 End: 11-39-9491Subagm FuturefleetpreetiKyle My Hood Hussein PT Work Phone: NOJJ FB PTStart: 06-27-2024 End: 36-86-6849Exmrul flowsI Read Booksle My Hood Hussein PT Work Phone: NOVB FB PTStart: 06-27-2024 End: 72-04-0200BswlngdxcWlsy Amiigogs PT Work Phone: NOMS FB PTComment on above:Left hip pain (Primary Dx); Femoroacetabular impingement of left hip; Articular cartilage disorder of left hipStart: 06-24-2024 End: 81-22-6113AmttatjrsMootno Tattersall PTANOMS FB PTComment on above:Left hip pain (Primary Dx); Femoroacetabular impingement of left hip; Articular cartilage disorder of left hipStart: 06-24-2024 End: 37-15-6678Gyufgx flowsheetMariah Tattersall PTANOMS FB PTStart: 06-24-2024 End: 42-56-3538Ymrtvf flowsheetMariah Tattersall PTANOMS FB PTStart: 06-20-2024 End: 09-81-2061Zgbfno flowsheetKyle J Hussein PT Work Phone: NOMS FB PTStart: 06-20-2024 End: 43-42-1308Nbhvky flowsheetKyian J Hussein PT Work Phone: NOMS FB PTStart: 06-20-2024 End: 44-54-5932EtkchswcpFzek Alba Hussein PT Work Phone: NOMS FB PTComment on above:Left hip pain (Primary Dx); Femoroacetabular impingement of left hip; Articular cartilage disorder of left hipStart: 06-17-2024 End: 96-38-4919AlujgxprnAburiy Tatjrall PTANOMS FB PTComment on above:Left hip pain (Primary Dx); Femoroacetabular impingement of left hip; Articular cartilage disorder of left hipStart: 06-17-2024 End: 66-15-9515Kaqvwi flowsShahnaz Tattersall PTANOMS FB PTStart: 06-17-2024 End: 64-17-1447Lfrnkn flowsheetLucy Tattersall PTANOMS FB PTStart: 06-13-2024 End: 11-28-2509Nmuerh flowsheetKyle Alba Hussein PT Work Phone: NOMS FB PTStart: 06-13-2024 End: 26-41-8038Feahws flowsheetKyian Willis Hussein PT Work Phone: NOMS FB PTStart: 06-13-2024 End: 25-83-8414DjibesoeyBwvt Alba Hussein PT Work Phone: NOMS FB PTComment on above:Left hip pain (Primary Dx); Femoroacetabular impingement of left hip; Articular cartilage disorder of left hipStart: 06-03-2024 End: 62-96-7187Kirrea flowsheetKyle J Hussein PT Work Phone: NOMS FB PTStart: 06-03-2024 End: 22-78-0123Kcaigr flowsheetKyle J Hussein PT Work Phone: NOMS FB PTStart: 06-03-2024 End: 19-19-9401Hetijy follow up visit related to original pxJeana Pierce MD Work Phone: [facility] Spine SurgeonsComment on above:Left hip pain (Primary Dx)Start: 06-03-2024 End: 89-38-3851FyxxlqgbueOebc J Spriggs PT Work Phone: NOAP FB PTComment on above:Left hip pain (Primary Dx); Femoroacetabular impingement of left hip; Articular cartilage disorder of left hipStart: 05-21-2024 End: 78-69-3149Rbdkoy OnlyLisa Cairnbrook [facility] Spine SurgeonsComment on above:Femoroacetabular impingement of left hip (Primary Dx); 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Start: 05-21-2024 End: 32-01-6298Mmblluqkci and management of inpatientJEANA PIERCEProMedica Daisytown HospitalStart: 05-15-2024 End: 35-09-0724Hphomc Pj Pierce MD Work Phone: [facility] Spine SurgeonsComment on above:Femoroacetabular impingement of left hip (Primary Dx) Start: 05-07-2024 End: 68-88-1591Ajpyleeug to establishmentMetro Pat Phone Call Provider 1 Eugene Gill [facility] Hospitaltart: 05-07-2024 End: 78-71-2689Ckhbxeefde and management of inpatientBENJAMIN E BALLProMedica Daisytown HospitalStart: 05-05-2024 End: 39-98-1886Vgpfxk outpatient visit 25 minutesJeana Pierce MD Work Phone: [facility] Spine SurgeonsComment on above:Femoroacetabular impingement of left hip (Primary Dx) Start: 05-05-2024 End: 05-92-4907fhuhsokwmfDKFE K GUPTAProMedica [facility] PPGStart: 03-07-2024 End: 38-44-1357ffckcgsvzwUSWQ K GUPTAProMedica [facility] HospitalStart: 01-23-2024 End: 07-14-7864Otxvudryx encounterJeana Pierce MD Work Phone: [facility] Spine SurgeonsStart: 01-21-2024 End: 78-92-4685yytwlhgbjnPXDF [facility] Hospitaltart: 12-18-2023 End: 33-55-3281Qaptdf outpatient new 30 minutesJeana Pierce MD Work Phone: [facility] Spine SurgeonsComment on above:Femoroacetabular impingement of left hip (Primary Dx); Left hip pain; Femoral acetabular impingement; Pain of left hipStart: 03-16-4837Cpyftwi encounter statusBenkarinaregan Morris DO Work Phone: [facility] Ohiotart: 12-18-2023 End: 80-25-0078uqyetxfqsrXRLZ [facility] PPGStart: 10-26-2023 End: 12-44-3112Zfrkxk [employer] MANAGER CLEANING Work Phone: NOBM FB PTStart: 10-26-2023 End: 16-24-1306Dhzcoi [employer] MANAGER CLEANING Work Phone: [facility] FB PTStart: 10-26-2023 End: 35-27-8733ckiwnfgwmjOejvibwk Wright MANAGER CLEANING Work Phone: NOXQ FB PTComment on above:Right hip pain (Primary Dx); Femoral acetabular impingementStart: 10-23-2023 End: 93-12-5642idxngoxkkkLhfrfu Tattersall PTANOMS FB PTComment on above:Right hip pain (Primary Dx); Femoral acetabular impingementStart: 10-23-2023 End: 91-66-5324Lagdac flowsheetMariah Tattersall PTANOMS FB PTStart: 10-23-2023 End: 67-46-2130Srrjix flowsheetMariah Tattersall PTANOMS FB PTStart: 10-19-2023 End: 07-68-7717ofxugcrmybPpykvsvf Wright MANAGER CLEANING Work Phone: NOSA FB PTComment on above:Right hip pain (Primary Dx); Femoral acetabular impingementStart: 10-18-2023 End: 40-93-4287wiltlvnbdyPqtetqsb Wright MANAGER CLEANING Work Phone: NOOB FB PTComment on above:Right hip pain (Primary Dx); Femoral acetabular impingementStart: 10-18-2023 End: 71-60-1988Jdhuvx Onur Lee MANAGER CLEANING Work Phone: NOLA FB PTStart: 10-18-2023 End: 71-22-7799Aznrxy Onur Lee MANAGER CLEANING Work Phone: NOCF FB PTStart: 10-12-2023 End: 35-66-1972twysgducdhIbjs J Hussein PT Work Phone: noms FB PTComment on above:Right hip pain (Primary Dx); Femoral acetabular impingementStart: 10-11-2023 End: 09-83-8013rakhztltgwGepv J Hussein PT Work Phone: NOTY FB PTComment on above:Right hip pain (Primary Dx); Femoral acetabular impingementStart: 10-11-2023 End: 46-91-2424Gqtdmt flowsheetKyle J Hussein PT Work Phone: NOFM FB PTStart: 10-11-2023 End: 13-37-8353Covsbi flowsheetKyle J Hussein PT Work Phone: NOJH FB PTStart: 10-05-2023 End: 31-04-3809hefdocxsljMpov J Hussein PT Work Phone: NOMS FB PTComment on above:Right hip pain (Primary Dx); Femoral acetabular impingementStart: 10-04-2023 End: 00-02-1217miijdaujmiOaak J Hussein PT Work Phone: NOMS FB PTComment on above:Right hip pain (Primary Dx); Femoral acetabular impingementStart: 10-04-2023 End: 88-21-5696Uqczqu flowsheetKyle J Hussein PT Work Phone: noms FB PTStart: 10-04-2023 End: 04-15-7360Grwhuc flowsheetKyle J Hussein PT Work Phone: noms FB PTStart: 09-10-2023 End: 23-72-0604srcvbzasksEHVCF KRPATAFacility:[facility] Hospitaltart: 09-10-2023 End: 05-03-0917Yleedps encounter procedureBrad Hanna MD Work Phone: General SurgeryComment on above:Pain in left hip (Primary Dx)Start: 08-15-2023 End: 62-47-8897nolstjlmslIWSSFBPX MILLERFacility:[facility] Hospitaltart: 08-15-2023 End: 99-78-0152Xngtsibjrq hospital visit by physicianAs[facility] Christopher Work Phone: RadiologyComment on above:Left inguinal pain [R10.32] Start: 62-93-3754Xjxgvoujl encounterAndrew CayetanoadiologyComment on above: AppointmentLeft inguinal pain (Primary Dx)Start: 07-10-2023 End: 33-83-2659Fbytkqc encounter procedureLuther Ann MD Work Phone: General SurgeryComment on above:Left inguinal pain (Primary Dx)Start: 07-10-2023 End: 60-84-7455htgahtziqmEFPDNYDL T. MILLERFacility:[facility] Start: 09-29-2022 End: 18-87-9504ebryahchncEpjpyokq Ball Other [facility] [employer] Other Start: 64-27-9666Ptjtlohec encounterBentoyin BallBROOKG [facility] ClinicStart: 09-25-2022 End: 33-82-7361eonziawrxuXfykqpqa Ball Other [facility] [employer] Other start: 11-21-8922Xtolverul for general adult medical examination without abnormal findingsLuther Morris Medical ClinicStart: 14-80-4651Oiracvxmc encounterBevikram Morris Medical ClinicStart: 09-22-2022 End: 72-73-7551kdywgikkeeVzfvnbhy Ball Other rt [employer] Other Start: 38-34-9979Zggpfpjup for general adult medical examination without abnormal findingsLuther Morris Medical ClinicStart: 67-88-3769Ivrkrray preventive med est patient 40-64yrsBevikram Morris Medical ClinicStart: 12-16-2021 End: 24-40-1461vubxbyqkggSS BENJAMIN BALLFacility:J4Dhpxo: 06-17-2021 End: 78-91-6425ucaatjykymRX BENJAMIN BALLFacility:W7Byqks: 35-71-9816Qvefbizvf for general adult medical examination without abnormal findingsDR LUTHER MORRIS [facility] Centertart: 06-07-2021 End: 42-27-7173ospemqozguWX BENJAMIN BALLFacility:P5Svicz: 06-07-2021 End: 40-86-3763Phlhamlox for general adult medical examination without abnormal findingsDR LUTHER MORRISFacility:D1Jfcmq: 02-15-2021 End: 69-85-9474etuivomrfuBE BENJAMIN BALLFacility:E7Dmvqi: 51-51-9727yqlthppxxq DR LUTHER MORRISFacility:H1 Procedures DateProcedureProcedure DetailPerforming ClinicianStart: 33-18-8951Dxbwdm-up visitFollow-upANIL K GUPTAStart: 91-49-2662Zl compl joint r-t w/image documentationBevikram Ann MD Work Phone: Start: 91-07-5439VjmxskeayfkEzmsnhj NILL Start: 82-29-1286KkzvczwmobbDscsougc Lee LOIDA Work Phone: Start: 69-35-4451KicowhyaangVunh Hussein PT Work Phone: Start: 63-24-6195LLD screeningDR LUTHER Stanton on above:Performed By: #### PSASC #### [facility] [address] [place] [address] Dr. Gala JohnsonAcetabular labrum tear (disorder)Oren RONDONL Plan of Treatment DateCare ActivityDetailAuthorStart: 39-93-2826Kvcrvomfc for malignant neoplasm of colonNOMS HealthcareStart: 87-43-1394Tlwujgrmn for malignant neoplasm of colonNOMS HealthcareStart: 71-45-0256Eftvj BMI ScreeningAdult BMI Screening [facility] SystemStart: 81-96-3334Zgtje BMI ScreeningAdult BMI Screening [facility] SystemStart: 54-40-2742Naeuxxs ScreeningTobacco Screening [facility] SystemStart: 00-09-2291Omjbj BMI ScreeningAdult BMI Screening [facility] SystemStart: 96-38-3569Gangr BMI ScreeningAdult BMI Screening [facility] SystemStart: 68-26-8519Urqyoof ScreeningTobacco Screening [facility] SystemStart: 63-29-8694Mptwlxd ScreeningTobacco Screening [facility] SystemStart: 94-69-5001Eicpu BMI ScreeningAdult BMI Screening [facility] SystemStart: 52-53-6496Oflamil ScreeningTobacco Screening [facility] SystemStart: 67-81-4345Ygphk BMI ScreeningAdult BMI Screening [facility] SystemStart: 40-88-2945Jfgls BMI ScreeningAdult BMI Screening [facility] SystemStart: 94-02-0254Ckzpyywzi vaccinationProUniversity Hospitals Lake West Medical Centerca [facility] SystemStart: 10-06-2024 End: 53-51-5205Ylwkzrm encounter mbukokjdz86/25/2025 1:40 PM EDT Office Visit [facility] [address] [place] [address] Jeana Pierce MD [address] [place] [address] [facility] Sp[facility] SurgeonsStart: 09-04-2024 End: 41-36-0008xykjzeppgq49/24/2025 5:00 PM EDT Treatment [facility] [address] [place] [id number] Alejandra Lee, MANAGER CLEANING [address] [place] [address] [facility] FB PTStart: 09-02-2024 End: 84-42-9280wptcnjlutj44/22/2025 5:00 PM EDT Treatment [facility] [address] [place] [address] Lucy Fay PTANOMS FB PTStart: 08-25-2024 End: 09-20-3244Igwuteq encounter miravjhrz93/14/2025 12:55 PM EDT Office Visit [facility] [address] [place] [address] Jeana Pierce MD [address] [place] [address] [facility] SurgeonsStart: 07-29-2024 End: 24-22-5098mmkslzrwya86/17/2025 5:30 PM EDT Treatment [facility] FB PT [address] [place] [address] Alejandra Lee, MANAGER CLEANING [address] [place] [address] Lizett DONAHUE PT Comment on above:ArrivedStart: 07-22-2024 End: 25-35-2958vyyqowwhcl07/10/2025 5:30 PM EDT Treatment NOMS FB PT [address] [place] [address] Alejandra Lee, MANAGER CLEANING [address] [place] [address] NOMS FB PTStart: 07-18-2024 End: 35-76-0347wfxwzytbpk97/06/2025 1:30 PM EDT Treatment NOMS FB PT [address] [place] [address] Alejandra Lee, MANAGER CLEANING [address] [place] [address] NOMS FB PTStart: 07-10-2024 End: 34-75-8940krvapqnvjvRECB FB PTComment on above:Left hip pain (Primary Dx) Start: 07-08-2024 End: 99-39-8952xjlvbqpzejOSSE FB PTStart: 07-04-2024 End: 11-83-4073ikicmskftz01/23/2025 1:30 PM EDT Treatment [facility] FB PT [address] [place] [address] Alejandra Lee, MANAGER CLEANING [address] [place] [address] NOMS FB PTStart: 07-01-2024 End: 78-12-1732Dopcimi encounter setrqkhlh35/20/2025 12:30 PM EDT Office Visit [facility] [address] [place] [address] Jeana Pierce MD [address] [place] [address] [facility] SurgeonsStart: 07-01-2024 End: 58-98-7499vaffbnsrnuYKGV FB PTComment on above:ArrivedStart: 06-27-2024 End: 26-64-4443ffobnyolea04/16/2025 1:00 PM EDT Treatment NOM[facility] FB PT [address] [place] [address] Micheal Savage, PT [address] [place] [address] NOMS FB PTStart: 06-24-2024 End: 72-98-6305epxfenpsku01/13/2025 5:00 PM EDT Treatment [facility] FB PT [address] [place] [address] Lucy Fay PTANOMS FB PTStart: 06-20-2024 End: 23-85-9437frpyqvhnyuSXPS FB PTComment on above:ArrivedStart: 06-17-2024 End: 70-63-6433uavevoqpeh70/06/2025 5:00 PM EDT Treatment N[facility] FB PT [address] [place] [address] Lucy Fay PTANOMS FB PTStart: 06-13-2024 End: 61-98-8510flhyivwmqn11/02/2025 1:00 PM EDT Treatment N[facility] FB PT [address] [place] [phone] Micheal Savage, PT [address] [place] [address] NOMS FB PTStart: 06-03-2024 End: 99-82-1898Jzeceop encounter /22/2025 1:45 PM EDT Office Visit [facility] [address] [place] [address] Jeana Pierce MD [address] [place] [address] [facility] SurgeonsStart: 06-03-2024 End: 76-46-0123ljezriizzi72/22/2025 9:00 AM EDT Evaluation [facility] FB PT [address] [place] [address] Micheal Savage, PT [address] [place] [address] ArrivedNOMS FB PT Comment on above:ArrivedStart: 05-21-2024 End: 10-79-4934Fucpqrttg to same day surgery vlvcga6605/21/2024 11:45 AM EDT - 05/21/2024 2:15 PM EDT Surgery [facility] [address] 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 [place], [place] [address] Jeana Pierce MD [address] [place] [address] [facility] SurgeryStart: 05-07-2024 End: 73-71-7106Gxawlwqwd to /26/2025 9:30 AM EDT Support Visit [facility] [id number] [address]BkgUyitnw [facility] Start: 12-18-2023 End: 88-15-9155Iihwsqhwajz MR/CT inj arthrogram hip left with guidance Fluoroscopy MR/CT inj arthrogram hip left with guidance Imaging Routine Femoral acetabular impingement Expected: 12/18/2023, Expires: 12/17/2024[facility] Work Phone: Comment on above:Expected: 12/18/2023, Expires: 12/17/2024Start: 12-18-2023 End: 80-16-2821WF Hip - left ArthrogramMR arthrogram hip left with contrast Imaging Routine Femoral acetabular impingement Pain of left hip Expected: 12/18/2023, Expires: 12/17/2024[facility] SystemComment on above:Expected: 12/18/2023, Expires: 12/17/2024Start: 10-26-2023 End: 07-19-4817wimvcfurbmFUDE FB PTComment on above:ArrivedStart: 10-23-2023 End: 20-09-5021mrvkfndaeu19/10/2024 3:00 PM EDT Treatment NOMS ROWAN PT [address] [place] [address] Alejandra Lee, MANAGER CLEANING [address] [place] [address] NOMS FB PTStart: 10-19-2023 End: 15-55-7773vtmrkkdlfb96/06/2024 1:30 PM EDT Treatment [facility]OMS ROWAN PT [address] [place] [phone] Alejandra Lee, MANAGER CLEANING [address] [place] [address] NOMS FB PTStart: 10-18-2023 End: 17-09-3647uhbrrvdtkiBWCL FB PTStart: 83-15-7370FZEJM-19 Vaccine ( season)COVID-19 Vaccine ( season)[facility] SystemStart: 90-98-5747Wvklmvqvq vaccinationProMedica Toledo Hospitaltart: 10-12-2023 End: 67-82-0932jitktxefzp59/30/2024 1:30 PM EDT Treatment NOMS FB PT [address] [place] [address] Micheal Savage, PT [address] [place] [address] NOMS FB PTStart: 10-11-2023 End: 35-71-8725lbajxebamx57/29/2024 5:00 PM EDT Treatment N[facility] FB PT [address] [place] [address] Micheal Savage, PT [address] [place] [address] NOMS FB PTStart: 10-05-2023 End: 66-96-9151irtooqdibq48/23/2024 1:30 PM EDT Treatment N[facility] FB PT [address] [place] [address] Micheal Savage, PT [address] [place] [address] NOMS FB PTStart: 10-04-2023 End: 99-95-2274gyzjksriee13/22/2024 5:30 PM EDT Treatment NOM[facility] FB PT [address] [place] [address] Micheal Savage, PT [address] [place] [address] ArrivedNOMS FB PT Comment on above:ArrivedStart: 09-10-2023 End: 41-75-3233Ahxvegs encounter pjflqspfi51/29/2024 10:30 AM EDT Office Visit General Surgery [address] [address] Brad Hanna MD [address] [place] [address] groin painGeneral SurgeryComment on above:groin painStart: 08-15-2023 End: 65-45-9204Vwqqlbk encounter /03/2024 1:35 PM EDT Appointment Radiology [address] [place], [place] [address] NEW ORDER FORTHCOMINGRadiologyComment on above:NEW ORDER FORTHCOMINGStart: 08-10-2023 End: 15-18-9980SR Pelvis limitedUS [facility] Radiology Routine Left inguinal pain Expected: 08/10/2023, Expires: 08/08/2024[facility] Work Phone: Comment on above:Expected: 08/10/2023, Expires: 08/08/2024Start: 37-56-5350Xzypdhzbrk Health ScreeningBehavioral Health ScreeningProMedica Toledo Hospitaltart: 81-94-7443Gimad-19 Vaccine ( season) Covid-19 Vaccine ( season)[facility]: 41-74-7619Lriwaaar ScreeningDiabetes ScreeningProMedica Toledo Hospitaltart: 88-22-8265Fsicsxnbm for malignant neoplasm of colonProMedica Toledo Hospitaltart: 19-39-8558Skkqe panelLipid ScreeningProMedica Toledo Hospitaltart: 20-12-4944BVlA,Tdap and Td Vaccines (1 - Tdap) DTaP,Tdap and Td Vaccines (1 - Tdap)[facility] SystemStart: 12-09-1995 Hepatitis B Vaccine (1 of 3 - 19+ 3-dose series)Hepatitis B Vaccine (1 of 3 - 19+ 3-dose series)[facility]: 99-32-4612Pizvp microalbumin profile DTaP,Tdap,Td Vaccine (1 - Tdap)[facility]: 32-28-7498Egrtx BMI Follow Up PlanAdult BMI Follow Up PlanNovant Healthtart: 62-39-0752Ucjyzgv ScreeningAnxiety ScreeningProMedica Toledo Hospitaltart: 68-21-1013Ezajynnfqh Screening Depression ScreeningProMedica Toledo Hospitaltart: 57-14-0664Kdyhaykhc C screening Hepatitis C ScreeningProMedica Toledo Hospitaltart: 83-25-5581WBJ screeningHIV Screening [facility]: 23-32-4973Duxzztqucg ScreeningDepression Screening [facility]: 61-56-4387Mpgmkwq ScreeningTobacco Screening [facility]: 26-74-9638Oqahjhtnt for malignant neoplasm of colonNODE HealthcareComprehensive metabolic 2000 panel - Serum or Plasma [facility] Medical CenterFibrin D-dimer [Presence] in Platelet poor plasma by Latex agglutinationCincinnati Children'S Hospital Medical CenterUS Heart TransthoracicCinc[facility] Children'S Hospital [facility] Center End: 27-48-3418RU Hip - leftUS HIP LEFT Radiology Routine Left inguinal pain 1 Occurrences starting 07/12/2023 until 08/09/2024[facility] Work Phone: Comment on above:1 Occurrences starting 07/12/2023 until 08/09/2024XR Chest 2 ViewsCleveland Clinic [facility] Immunizations Immunization DateImmunizationNotesCare BfmpkxjmHnkociiw01-40-8508lawiagq toxoid, reduced diphtheria toxoid, and acellular pertussis vaccine, adsorbedBenkarinamin Ball DO Work Phone: [facility]10-30-2024influenza, injectable, madin billy canine kidney, preservative freeBenjamin Ball DO Work Phone: [facility]10-30-2024influenza, seasonal, injectable, preservative freeKyle Hussein PT Work Phone: [facility] HospitalMazvjdzimt65-06-8020fcqtxcyan virus vaccine, unspecified formulationJeana Pierce MD Work Phone: [facility] Medical CenterPfquxu24-29-8765ZKWLC-22 mRNA-1273 (Moderna)Luther Morris DO Work Phone: [facility]01-28-2021COVID-19 mRNA-1273 (Moderna)Luther Morris DO Work Phone: [facility]12-30-2020COVID-19 mRNA-1273 (Moderna)Luther Morris DO Work Phone: [facility] Payers DatePayer CategoryPayerPolicy [id number] Cross Blue Shield Managed Care - Other [id number] [id number] 2..840.8.220652.20218101-14-3428Jskmdro Health Insurance 1.2.840.825343.1.13.693.2.7.9.034452.621455.03235-20-9020Fwwubyd 1.2.840.996957.1.13.159.2.7.3.942[id number] [id number] 2.840.1.505253.3.57[id number] 2..840.1.179178.3.57[id number] 2.16.840.1.598082.3.57[id number] 2.16.840.1.123052.3.57[id number] 2.16.840.1.351279.3.57[id number] 2.16.840.1.573961.3.57[id number] 2.16.840.1.104820.3.57[id number] 2.16.840.1.699736.3.57[id number] 2.16.840.1.755774.3.57[id number] 2..840.1.345283.3.57[id number] 2..840.1.825739.3.57[id number] 2.16.840.1.587702.3.57[id number] 2..840.1.866891.3.57[id number] 2..840.1.406335.3.57[id number] 2..840.1.432451.3.57[id number] 2..840.1.834300.3.57[id number] 2.840.1.340628.3.57[id number] 2.840.1.667795.3.579.2.08839-91-5729Bine-[id number] 1wxn9ju9-b2lg-2t60-7q50-[id number] 2.16.840.1.312542.3.579.2.531 Social History DateTypeDetailFacilityStart: 07-10-2023 End: 95-61-3334Ijv Assigned At [facility] Toppr Other Start: 07-10-2023 End: 41-63-0818Hmrzpca smoking status NHISNever smoked tobaccoMartins Ferry Hospital Start: 11-22-2022 End: 63-73-1840Yrzxsih use and exposureSmokeless tobacco non-userProMedica Toledo Hospitaltart: 07-10-2023 End: 59-99-3898Azbmxji of Social functionMartins Ferry HospitalNational Score (1-100), lower number is lower gdpn76TocjjpefqProMedica Toledo Hospitaltart: 29-36-0528Lfn Assigned At BirthNot on fileProMedica Toledo Hospitaltart: 11-22-2022 End: 83-85-6211Ntsmkvtfn beverage intakeCurrent drinker of alcohol (finding)[facility] HospitalStart: 04-48-8389Ora assigned at [facility] CenterStart: 70-46-2425Ameamr identityIdentifies as male gender (finding)[facility] Start: 32-26-9759Reswra orientationHeterosexual (finding)[facility] Medical CenterTobacco smoking status NHISTobacco smoking consumption unknownParkview Health [facility] Hospital [facility] Work Phone: Start: 59-97-9819RtmYvto (finding)[facility] [employer] [facility] Hospitalexual OrientationKnox Community Hospital General Surgery [place] NEGATED: Highlighted rowStart: NINFHistory of tobacco usePassive smokerProTogus Va Medical Center Clinical Notes 09-22-2022 to 12-05-2024 Note Date & XgfbEvguMssewvcr61-46-9991 NoteGeneral Surgery Office/Clinic Note Chief Complaint consultation [...] sclerosis: Father. Primary malign (more content not included)...[facility] CenterComment on above:Result Comment: Electronically Signed By: ARTHUR NICOLE, Oren Maxwell\Date and Time Signed: 12/05/24 11:52 IKQ96-33-1726 Evaluation note* Diagnosis Onset Date Resolution Status Admit Date Chest pain acuteSeptember 2024 1:53pmDyspneaacuteSeptember 2024 1:53pmAsthma acuteOctober 2024 2:48pmBenign prostatic hyperplasia with lower urinary tract symptomsacuteOctober 2024 2:48pmGERD (gastroesophageal reflux disease)acuteOctober 2024 2:48pmIron deficiency anemiaacuteOctober 2024 2:48pmLeft hip impingement syndromeacuteOctober 2024 2:48pmScreening PSA (prostate specific antigen)acuteOctober 2024 2:48pmWellness examinationacuteOctober 2024 2:48pm [facility] Work Phone: 1(150) 505-927407-14-2025 History of Present illness Narrative* Jeana Pierce MD - 08/25/2024 12:55 PM EDT [facility] [address] [facility] [address] Name: Henrik Menjivar : 1975 Chief Complaint [...] of the aforementioned history prepared by the modena practice provider, and I personally performed the [...] needed all questions answered.. documented in this encounterTogus VA Medical Center06-06-2025 History of Present illness Narrative* Micheal Savage, [...] hip pain/soreness last few days went to [place] for [facility] college orientation a lot of sitting and walk and long car ride, recovering over last couple days, better this a.m. 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 documented in this [facility]05-20-2025 History of Present illness Narrative* Jeana Pierce MD - 07/01/2024 12:30 PM EDT [facility] [address] [place] [facility] [address] Name: Henrik Menjivar : 1975 Chief Complaint [...] therapy twice a week. He occasionally takes zjqz-ynt-jytirgx medication as needed.He is noticing improvements in [...] were addressed and answered. 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 documented in this encounterSt. 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 documented in this encounterSt. 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 documented in this encounterSt. 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 documented in this encounterSt. Louis Children's HospitalVozqoyphsr86-37-3999 History of Present illness Narrative* Jeana Pierce MD - 06/03/2024 1:45 PM EDT [facility] [address] [facility] [address] Name: Henrik Menjivar : 1975 Date of [...] 4 weeks for reassessment. 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 Date: documented in this encounterSt. Louis Children's HospitalMxbjmuxsmt24-89-2878 History of Present illness Narrative* Jeana Pierce [...] surgery all questions answered. documented in this encounterTogus VA Medical Center12-11-2024 Miscellaneous Notes* Telephone Encounter - Jeana Pierce [...] for surgical planning purposes. documented in this encounterCleveland Clinic Mentor HospitalDataKraft12-11-2024 Telephone encounter Note* Telephone Encounter - Jeana [...] the left hip for surgical planning purposes. [facility] EconodataAgzuwp26-35-3972 History of Present illness Narrative* Jeana Pierce MD - 12/18/2023 1:30 PM EST Chief Complaint: Chief Complaint Patient presents with Left Hip - New Patient ANODIZER left hip pain 2 1/2 years, unaware of specific injury, MRI 2 years ago at [facility],, hasdone PT in past 10 sessions, no injections Subjective History Henrik Menjivar is a 48 y.o. male who presents to the office today for his left hip. Patient is a new patient to the practice. Patient has had pain in the left hip for 2-1/2 years. He denies any specific injury. 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 documented in this encounterSt. 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 documented in this encounterSt. 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 documented in this encounterSt. 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 documented in this encounterSt. Louis Children's HospitalLrahblweka31-23-1522 NoteHNO ID: [id number] Author: BRAD HANNA MD Service: ? Author Type: Physician Type: Progress Notes Filed: 09/14/2023 14:54 Note Text: [facility] Abdominal Core Health - HISTORY AND PHYSICAL [...] no inguinal hernia found US - 08/15/23 Oidb-od-xhqyjnrf tendinosis adductor origin without tear or hyperemia. [...] care with the resident. Signature: BRAD HANNA, [facility]07-29-2024 History of Present illness Narrative* Brad Hanna MD - 09/10/2023 11:[address] [facility] Abdominal [facility] Health - HISTORY AND PHYSICAL [...] no inguinal hernia found US - 08/15/23 Crqq-xh-dplunggu tendinosis adductor origin without tear or hyperemia. [...] Signature: BRAD HANNA MD documented in this encounterMartins Ferry Hospital07-29-2024 Nurse Note* Sindhu Stephens MA - 09/10/2023 10:28 AM EDT What is the reason for your visit today? Consult Who is your referring physician? None Are you having poor oral intake? NO Have you had unintentional weight loss of 15 lbs/7 Kg in the last 3-6 months? NO Bowels: regular Wound: None Temperature: No Drains: No [facility]07-29-2024 Nurse Note* Sindhu Stephens MA - 09/10/2023 10:28 AM EDT What is the reason for your visit today? Consult Who is your referring physician? None Are you having poor oral intake? NO Have you had unintentional weight loss of 15 lbs/7 Kg in the last 3-6 months? NO Bowels: regular Wound: None Temperature: No Drains: No documented in this encounterMartins Ferry Hospital05-29-2024 Telephone encounter Note * Telephone Encounter - Natalia Oliveira - 07/11/2023 3:06 PM EDT Patient has been scheduled for their [facility] US exam on 08/15/23 : 1:35 PM at [place]. [facility]05-29-2024 Miscellaneous Notes* Telephone Encounter - Natalia Oliveira - 07/11/2023 3:06 PM EDT Patient has been scheduled for their [facility] US exam on 08/15/23 : 1:35 PM at [place]. * Telephone Encounter - Natalia Oliveira - [...] locations. Slot held: N/A documented in this encounterMartins Ferry Hospital05-29-2024 Telephone encounter Note * Telephone Encounter - Natalia Oliveira - 07/11/2023 11:07 AM EDT Called patient on July 11, 2023 at 11:07 AM to schedule their [facility] US exam. No answer, left VM, 1st attempt. Left VM stating [facility] US department will call back. [facility]05-29-2024 Telephone encounter Note* Telephone Encounter - [...] the Appointment Note. Do not link order forCubeyou PELVIS LTD. Correct order has been routed. Location: Depending on the surgical hx, this patient can have this exam performed at any of our three locations. Slot held: N/A [facility]05-28-2024 NoteHNO ID: [id number] Author: LUTHER ANN MD Service: ? Author [...] our notes. Patient consented for study? Not applicableCl[facility]05-28-2024 History of Present illness Narrative* [...] for study? Not applicable documented in this encounterMartins Ferry Hospital05-28-2024 History and physical note * Filomena Arreola MD - 07/10/2023 10:[address] [facility] Abdominal [facility] Health - HISTORY AND PHYSICAL [...] General Surgery Resident, PGY-1 07/10/2023 10:23 AM [facility]05-28-2024 History and physical note* Filomena Arreola MD - 07/10/2023 10:23 AM EDT [facility] - HISTORY AND PHYSICAL Chief Complaint: Chronic [...] PGY-1 07/10/2023 10:23 AM documented in this encounterMartins Ferry Hospital05-28-2024 Nurse Note* Jacklyn Graf MA - 07/10/2023 10:06 AM EDT What is the reason for your visit today? Consult Who is your referring physician? Dr. Ann Are you having poor oral intake? NO Have you had unintentional weight loss of 15 lbs/7 Kg in the last 3-6 months? NO Bowels: regular Wound: clean & dry Temperature: No Drains: No [facility]05-28-2024 Nurse Note* Jacklyn Graf MA - 07/10/2023 10:06 AM EDT What is the reason for your visit today? Consult Who is your referring physician? Dr. Ann Are you having poor oral intake? NO Have you had unintentional weight loss of 15 lbs/7 Kg in the last 3-6 months? NO Bowels: regular Wound: clean & dry Temperature: No Drains: No documented [facility]* Encounter Date Diagnosis Assessment Notes Treatment Notes Treatment Clinical Notes Sep, Wellness examination (ICD-10 - Z 00.00) [employer] Other 08-11-2023 Evaluation note* Encounter Date Diagnosis [...] low risk patient. Refer for screening colonoscopy [employer] Other Evaluation + Plan note No data available for this section [facility] General Surgery [place] Evaluation noteNo InformationNort Toppr Other Evaluation note* Diagnosis Left inguinal pain- Primary Abdominal pain, left lower quadrant documented [facility] Diagnosis Left inguinal pain- Primary Abdominal pain, left lower quadrant documented [facility] Diagnosis Left inguinal pain Abdominal pain, left lower quadrant documented in this [facility] Diagnosis Pain in left hip- Primary Pain in joint, pelvic region and thigh documented in this encounter [facility]* Diagnosis Right hip pain- Primary Pain in joint, pelvic region and thigh Femoral acetabular impingement [facility] Right hip pain- Primary Pain in joint, pelvic region and thigh Femoral acetabular impingement documented in this encounter [facility]* Diagnosis Right hip pain- Primary Pain in joint, pelvic region and thigh Femoral acetabular impingement documented in this encounter [facility]* Diagnosis Right hip pain- Primary Pain in joint, pelvic region and thigh Femoral acetabular impingement documented in this encounter [facility]* Diagnosis Right hip pain- Primary Pain in joint, pelvic region and thigh Femoral acetabular impingement documented in this encounter [facility]* Diagnosis Right hip pain- Primary Pain in joint, pelvic region and thigh Femoral acetabular impingement documented in this encounter [facility]* Diagnosis Right hip pain- Primary Pain in joint, pelvic region and thigh Femoral acetabular impingement documented in this encounter [facility]* Diagnosis Right hip pain- Primary Pain in joint, pelvic region and thigh Femoral acetabular impingement documented in this encounter [facility]* Diagnosis Femoroacetabular impingement of left hip- Primary Left hip pain Pain in joint, pelvic region and thigh Femoral acetabular impingement Pain of left hip Left hip pain Pain in joint, pelvic region and thigh [facility] Diagnosis 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- Primary 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 [facility] Diagnosis 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- Primary 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 [facility]* Diagnosis Femoroacetabular impingement of left hip- Primary 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 [facility]* Diagnosis Left hip pain- Primary Pain in joint, pelvic region and thigh 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 documented in this encounter [facility]* Diagnosis Left hip pain- Primary Pain in joint, pelvic region and thigh Left hip pain Pain in joint, pelvic region and thigh documented [facility]* Diagnosis Left hip pain- Primary Pain in joint, pelvic region and thigh 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 documented in this encounter [facility]* Diagnosis Left hip pain- Primary Pain in joint, pelvic region and thigh 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 documented in this encounter [facility]* Diagnosis Left hip pain- Primary Pain in joint, pelvic region and thigh 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 documented in this encounter [facility]* Diagnosis Left hip pain- Primary Pain in joint, pelvic region and thigh 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 documented in this encounter [facility]* Diagnosis Left hip pain- Primary Pain in joint, pelvic region and thigh 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 documented in this encounter [facility]* Diagnosis Postoperative visit- Primary [facility]* Diagnosis Left hip pain- Primary Pain in joint, pelvic region and thigh 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 documented in this encounter [facility]* Diagnosis Femoroacetabular impingement of left hip- Primary documented [facility]* Diagnosis Left hip pain- Primary Pain in joint, pelvic region and thigh 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 documented in this encounter [facility] HealthcareEvaluation noteNo assessment information availableSheltering Arms Hospital Work Phone: Evaluation note* Diagnosis Onset Date Resolution Status Admit Date Chest pain acuteSeptember 2024 1:53pmDyspneaacuteSeptember 2024 1:53pmMurmur acuteSeptember 2024 1:53pm [facility] Work Phone: History general Narrative - Reported* Type Description Date Medical History Allergic rhinitis due to pollen Medical HistoryGastro-esophageal reflux disease without esophagitisMedical HistoryBenign prostatic hyperplasia with lower urinary tract symptomsMedical HistoryAsthmatic bronchitis, mild intermittent, uncomplicated [employer] Other Hospital Discharge instructions No data available for this section [facility] General Surgery [place] InstructionsNot on filedocumented in this encounter [facility] SystemInstructionsNot on filedocumented in this encounter [facility] SystemInstructionsNot on filedocumented in this encounter [facility] SystemInstructions* Pre-Procedure Instructions - Rosalva Westbrook RN - 05/07/2024 9:30 AM EDT Your surgery/procedure is scheduled at [facility] on 05/21/2024 at 1145 am Tentative arrival time 915 am per surgeon instructions You will receive a phone call from [facility] the day beforeyour surgery to verify your arrival time. [address] [place] [address]. Park in Entrance D. Report to the registration desk in the main lobby. If you have any questions prior to surgery, you may call Pre-Admission Clinic at [phone] between 7:30 am and 4:30 pm Sunday through Sunday. If you have any concerns the morning of surgery, please call the Pre-op Department at [phone]. Notify your SURGEON if you develop any [...] dermal piercings),hair extensions that contain metal, nail iraqi, make-up, and contact lens. If you received [...] RIGHTS AND RESPONSIBILITIES As a patient at [facility], you have the right to: Receive medical care and be informed of who is taking care of you Be treated with dignity and respect Have a family member/farm loan representative of choice and your physician notified [...] of hospital charges and payment methods Patient/patient farm loan representative responsibilities are to: Provide information about health status to facilitate care, treatment and services Follow the treatment, plan, keep appointments and speak up when you do not understand the plan Respect the rights of other patients and healthcare personnel Follow organizational rules and regulations that support quality care and a safe environment Fulfill financial obligations as promptly as possible [facility] SystemInstructionsNot on filedocumented in this encounter [facility] [employer] SystemInstructionsNot on filedocumented in this encounter [facility] SystemInstructionsNot on filedocumented in this encounter [facility] CenterM[facility]* Pre-Procedure Instructions - Rosalva Westbrook RN - 05/07/2024 9:30 AM EDT Your surgery/procedure is scheduled at [facility] on 05/21/2024 at 1145 am Tentative arrival time 915 am per surgeon instructions You will receive a phone call from [facility] the day beforeyour surgery to verify your arrival time. [address] [place] [address]. Park in Entrance D. Report to the registration desk in the main lobby. If you have any questions prior to surgery, you may call Pre-Admission Clinic at [phone] between 7:30 am and 4:30 pm Sunday through Sunday. If you have any concerns the morning of surgery, please call the Pre-op Department at [phone]. Notify your SURGEON if you develop any [...] dermal piercings),hair extensions that contain metal, nail iraqi, make-up, and contact lens. If you received [...] RIGHTS AND RESPONSIBILITIES As a patient at [facility], you have the right to: Receive medical care and be informed of who is taking care of you Be treated with dignity and respect Have a family member/farm loan representative of choice and your physician notified [...] of hospital charges and payment methods Patient/patient farm loan representative responsibilities are to: Provide information about health status to facilitate care, treatment and services Follow the treatment, plan, keep appointments and speak up when you do not understand the plan Respect the rights of other patients and healthcare personnel Follow organizational rules and regulations that support quality care and a safe environment Fulfill financial obligations as promptly as possible documented in this [facility] SystemProgress note No data available for this section [facility] General Surgery [place] Reason for referral (narrative)* Reason Referral for screeni ng colonoscopy Diagnosis 1 Screening for colon cancer (Z12.11) Referral Organization [facility] florentino Referring Provider First Name Luther Referring Provider Last Name Arturo Referring Provider Specialty Internal Me dicine Referred Organization [facility] Referred Provider Dionisio Callejas Referred Address [address] [place], [place],[address] Referred Provider Specialty Surgery Referral Priority Routine General Notes Dr. Menjivar is being referred for a screening colonoscopy. He is an asymptomatic, low risk patient. He denies family history for colon cancer or polyps. He denies change in appetite, weight or bowel habits. He denies abdominal pain, heartburn or dysphagia. He denies melena or hematochezia. [employer] Other Reason for referral (narrative)* Diagnostic Procedure Only (Routine) - Pending ReviewSpecialtyDiagnoses / ProceduresReferred By ContactReferred To [facility] Diagnoses Left inguinal pain Procedures US PELVIS LTD US PELVIC NONOBSTETRIC IMAGE DCMTN LIMITED/F/U Luther Ann MD [address] [place] [address] [facility] [place] [address] Referral IDStatusReasonStart DateExpiration DateVisits RequestedVisits [id number] Review Auto-Generated Referral T [facility] for referral (narrative)* Diagnostic Procedure Only (Routine) - Pending ReviewSpecialtyDiagnoses / ProceduresReferred By Contact Referred To [facility] Diagnoses Left inguinal pain Procedures US HIP LEFT US COMPL JOINT R-T W/IMAGE DOCUMENTATION Luther Ann MD [address] [place] [address] [place] [address] Referral IDStatusReasonStart DateExpiration DateVisits RequestedVisits [id number] Review Auto-Generated Referral T [facility] for referral (narrative)* Diagnostic Procedure Only (Routine) - ClosedSpecialtyDiagnoses / ProceduresReferred By ContactReferred To [facility] Diagnoses Left inguinal pain Procedures US HIP LEFT US COMPL JOINT R-T W/IMAGE DOCUMENTATION Luther Ann MD [address] [place] [id number] [facility] Referral IDStatusReasonStart DateExpiration DateVisits RequestedVisits [id number] Auto-Generated Referral T [facility] for referral (narrative)No reason for referral information availableAvita Health System [facility] Work Phone: [facility] Narrative* Diagnostic Procedure Only (Routine) - ClosedSpecialtyDiagnoses / ProceduresReferred By ContactReferred To [facility] Diagnoses Left inguinal pain Procedures US HIP LEFT US COMPL JOINT R-T W/IMAGE DOCUMENTATION Luther Ann MD [address] [place] [id number] [place] [address] Referral IDStatusReasonStart DateExpiration DateVisits RequestedVisits [id number] Auto-Generated Referral / [facility] for visit Narrative* Rehabilitation - Outpatient (Routine) - AuthorizedSpecialtyDiagnoses / ProceduresReferred By Contact Referred To ContactPhysical Therapy Diagnoses Other specified joint disorders, left hip Other articular cartilage disorders, left hip Procedures [place] PHYSICAL THERAPY EVALUATION LOW COMPLEX 20 MINS Jeana Pierce MD [address] [place] [address] Phone: tel: fax: Micheal Savage, PT [address] [place] [address] Phone: tel: fax: Referral IDStatusReasonStart DateExpiration DateVisits RequestedVisits [id number] Consult and Treat / [facility] for visit Narrative* Rehabilitation - Outpatient (Routine) - AuthorizedSpecialtyDiagnoses / ProceduresReferred By ContactReferred To ContactPhysical Therapy Diagnoses Other specified joint disorders, left hip Other articular cartilage disorders, left hip Procedures [place] PHYSICAL THERAPY EVALUATION LOW COMPLEX 20 MINS Jeana Pierce MD [address] [place] [address] Phone: tel: fax: Micheal Savage, PT [address] [place] [address] Phone: tel: fax: Referral IDStatusReasonStart DateExpiration DateVisits RequestedVisits [id number] Consult and Treat / [facility] for visit Narrative* Rehabilitation - Outpatient (Routine) - ClosedSpecialtyDiagnoses / ProceduresReferred By ContactReferred To Contact Physical Therapy Diagnoses Other specified joint disorders, left hip Other articular cartilage disorders, left hip Procedures [place] PHYSICAL THERAPY EVALUATION LOW COMPLEX 20 MINS Jeana Pierce MD [address] [place] [address] Phone: tel: fax: Micheal Savage, PT [address] [facility] [place] [address] Phone: tel: fax: Referral IDStatusReasonStart DateExpiration DateVisits RequestedVisits [id number] Consult and Treat [facility] HealthcareReason for visit Narrative* Rehabilitation - Outpatient (Routine) - AuthorizedSpecialtyDiagnoses / ProceduresReferred By ContactReferred To ContactPhysical Therapy Diagnoses Other specified joint disorders, left hip Other articular cartilage disorders, left hip Procedures [place] THERAPEUTIC PX 1/> AREAS EACH 15 MIN EXERCISES Jeana Pierce MD [address] [place] [address] Phone: tel: fax: Micheal Savage, PT [address] [place] [address] Phone: tel: fax: Referral IDStatusReasonStart DateExpiration DateVisits RequestedVisits [id number]/ [facility] Summary Purpose Family History No Family [...] HIGH COMPLEX 45 MINS Brad Hanna MD [address] [place] [address] [facility] [place] [address] [place] [address] Referral IDStatusReasonStart DateExpiration DateVisits RequestedVisits [id number] Review Auto-Generated Referral Chief Complaint and Reason [...] and content) DATE CREATED AUTHOR 08/17/2020 [facility] DATE CREATED AUTHOR AUTHOR'S ORGANIZ ATION 12/23/2021 [facility] DATE CREATED AUTHOR AUTHOR'S ORGANIZ ATION 09/17/2023 [facility] DATE CREATED AUTHOR AUTHOR'S ORGANIZ ATION 03/12/2024 [facility] DATE CREATED AUTHOR AUTHOR'S ORGANIZ ATION 05/22/2024 [facility] DATE CREATED AUTHOR AUTHOR'S ORGANIZ ATION 08/29/2024 [facility] DATE CREATED AUTHOR AUTHOR'S ORGANIZ ATION 10/17/2024 [facility] DATE CREATED AUTHOR AUTHOR'S ORGANIZ ATION 12/07/2024 [facility] REASON FOR VISIT (unrecogniz ed section and content) ReasonCommentsConsultReasonCommentsAppointmentSpecialtyDiagnoses / Procedures Referred By ContactReferred To ContactPhysical Therapy Diagnoses Lt hip pain Procedures [place] PHYSICAL THERAPY EVALUATION HIGH COMPLEX 45 MINS Brad Hanna MD Micheal Savage, PT [address] [place] [address] Referral IDStatusReasonStart DateExpiration DateVisits RequestedVisits [id number] PatientNP left hip pain 2 1/2 years, unaware of specific injury, MRI 2 years ago at [facility],, hasdone PT in past 10 sessions, no [...] or prosecute any alcohol or drug abuse patient.[facility] HospitalIn the event this information is protected by the Federal Confidentiality of Alcohol and Drug Abuse Patient Records regulations: The Federal rules restrict any use of the information to criminally investigate or prosecute any alcohol or drug abuse patient.[facility] HospitalIn the event this information is protected by the Federal Confidentiality of Alcohol and Drug Abuse Patient Records regulations: The Federal rules restrict any use of the information to criminally investigate or prosecute any alcohol or drug abuse patient.[facility] HospitalIn the event this information is protected by the Federal Confidentiality of Alcohol and Drug Abuse Patient Records regulations: The Federal rules restrict any use of the information to criminally investigate or prosecute any alcohol or drug abuse patient.[facility] HospitalIn the event this information is protected by the Federal Confidentiality of Alcohol and Drug Abuse Patient Records regulations: The Federal rules restrict any use of the information to criminally investigate or prosecute any alcohol or drug abuse patient.[facility] Care Teams (unrecognized sec tion and content) Team MemberRelationshipSpecialtyStart DateEnd Date Luther Morris MD [address] [facility] [place] [address] PCP - Cgiaykg44/10/23Team MemberRelationshipSpecialtyStart DateEnd Date Luther Morris MD [address] [facility] [place] [address] PCP - Nflufak80/10/23Team MemberRelationshipSpecialtyStart DateEnd Date Luther Morris MD [address] [facility] [place] [address] PCP - Zelxxkl45/10/23Team MemberRelationshipSpecialtyStart DateEnd Date Luther Morris MD [address] [facility] [place] [address] PCP - Nlrnwtg51/10/23Team MemberRelationshipSpecialtyStart DateEnd Date Luther Morris MD [address] [facility] [place] [address] PCP - Qjacenl97/10/23Team MemberRelationshipSpecialtyStart DateEnd Date Luther Morris MD [address] [facility] [place] [address] PCP - Zpwxgxp09/10/23Team MemberRelationshipSpecialtyStart DateEnd Date Luther Morris MD [address] [facility] [place] [address] PCP - Zrnxjhp50/10/23Team MemberRelationshipSpecialtyStart DateEnd Date Luther Morris MD [address] [facility] [place] [address] PCP - Ufyyhdq25/10/23Team MemberRelationshipSpecialtyStart DateEnd Date Luther Morris MD [address] [facility] [place] [address] PCP - Kqmalqq95/10/23Team MemberRelationshipSpecialtyStart DateEnd Date Luther Morris MD [address] [facility] [place] [address] PCP - Wlzuaym00/10/23Team MemberRelationshipSpecialtyStart DateEnd Date Luther Morris MD [address] [facility] [place] [address] PCP - Chrupjh47/10/23Team MemberRelationshipSpecialtyStart DateEnd Date Luther Morris MD [address] [facility] [place] [address] PCP - Vbwapuh47/10/23Team MemberRelationshipSpecialtyStart DateEnd Date Luther Morris DO [address] [facility] [place] [address] PCP - GeneralInternal [facility]10/16/23Team MemberRelationshipSpecialtyStart Date End Date Luther Morris DO [address] [facility] [place] [address] PCP - GeneralInternal Medicine10/16/23Team MemberRelationshipSpecialtyStart Date End Date Luther Morris DO [address] [place] [address] PCP - GeneralInternal Medicine10/16/23Team MemberRelationshipSpecialtyStart Date End Date Luther Morris DO [address] [place] [address] PCP - GeneralInternal Medicine10/16/23Team MemberRelationshipSpecialtyStart Date End Date Luther Morris DO [address] [place] [address] PCP - GeneralInternal Medicine10/16/23Team MemberRelationshipSpecialtyStart Date End Date Luther Morris MD PCP - Qzngawi76/10/23Team MemberRelationshipSpecialtyStart DateEnd Date Luther Morris MD PCP - Pypnbke23/10/23Team MemberRelationshipSpecialtyStart DateEnd Date Luther Morris DO [address] [place] [address] PCP - GeneralInternal Medicine10/16/23Team MemberRelationshipSpecialtyStart Date End Date Luther Morris DO PCP - Bhwgldb33/10/23Team MemberRelationshipSpecialtyStart DateEnd Date Luther Morris DO PCP - Wpekdhh51/10/23Team MemberRelationshipSpecialtyStart DateEnd Date Luther Morris, DO PCP - Gfqgmih12/10/23Team MemberRelationshipSpecialtyStart DateEnd Date Luther Morris, DO PCP - Qoncbum84/10/23Team MemberRelationshipSpecialtyStart DateEnd Date Luther Morris, DO PCP - Ikkbplo68/10/23Team MemberRelationshipSpecialtyStart DateEnd Date Luther Morris, DO PCP - Wjhogdl68/10/23Team MemberRelationshipSpecialtyStart DateEnd Date Luther Morris, DO PCP - Hqvihnz71/10/23Team MemberRelationshipSpecialtyStart DateEnd Date Luther Morris, DO PCP - Udoemqu68/10/23Team MemberRelationshipSpecialtyStart DateEnd Date Luther Morris, DO PCP - Qszlgzs32/10/23Team MemberRelationshipSpecialtyStart DateEnd Date Luther Morris, DO [address] [place] [address] PCP - GeneralInternal [facility]10/16/23Team MemberRelationshipSpecialtyStart Date End Date Luther Morris, DO PCP - Cectfwp82/10/23Team MemberRelationshipSpecialtyStart DateEnd Date Luther Morris, DO PCP - Cbmhkqj69/10/23Team MemberRelationshipSpecialtyStart DateEnd Date Luther Morris, DO PCP - Prtuivm46/10/23Team MemberRelationshipSpecialtyStart DateEnd Date Luther Morris, DO PCP - Ubckzoi36/10/23Team MemberRelationshipSpecialtyStart DateEnd Date Luther Morris, DO [address] [place] [address] PCP [facility]10/16/23Team MemberRelationshipSpecialtyStart Date End Date Luther Morris, DO PCP Wavvhno96/10/23 Team Status: Active Member Role Status Dates [...] BE BASED ON THE PRIMARY CLINICAL RECORDS. [facility] [employer], [facility]. provides no warranty or guarantee of the accuracy or completeness of information in this document.
--- OUTSIDE RECORDS SUMMARY | 2025-01-20 07:14 | XMS_ITS | Clinical Summary ---
Author Organization [facility] Address [address] [place] [address] Care Team Providers Care Cable Splicing Technician Name Role Phone Luther Nicolas DO Primary Care Provider [phone] Allergies No known active allergies Medications MedicationSigDispense QuantityRefillsLast FilledStart DateEnd DateStatus tamsulosin (Flomax) 0.4 MG 24 hr capsule Active Singulair 10 MG tablet Active cetirizine (ZyrTEC ALLERGY) 10 MG tablet Active Active Problems ProblemNoted DateDiagnosed DateArticular cartilage disorder of left hip 06/03/2024Left hip pain09/27/2023Femoral acetabular muychadkjbf93/15/2024 Encounter for screening for malignant neoplasm of colon11/22/2022 Immunizations ImmunizationAdministration DatesNext DueInfluenza, seasonal, injectable, preservative free12/12/2023 Family History Medical HistoryRelationNameCommentsProstate cancerFatherBreast cancerNeg HxColon cancerNeg HxOvarian cancerNeg HxRelationNameStatusCommentsFatherAliveMotherAlive Social History Tobacco UseTypesPacks/DayYears UsedDateSmoking Tobacco: NeverSmokeless Tobacco: NeverAlcohol UseStandard Drinks/WeekCommentsYes1 (1 standard drink = 0.6 oz pure alcohol)Sex and Gender InformationValueDate RecordedSex Assigned at BirthMale 11/21/2022 10:54 PM EDTLegal WxwIvmb7309/27/2022 2:44 PM EDTGender IdentityMale 11/21/2022 10:54 PM EDTSexual KyvsahpnlopArplaocj11/10/2023 10:54 PM EDT Last Filed Vital Signs Vital SignReadingTime TakenCommentsBlood Wzebfzgz683/8610 3:27 PM EDT Pulse--Temperature--Respiratory Rate--Oxygen Saturation--Inhaled Oxygen Concentration--Zoozfu21.6 kg (180 lb)11/22/2022 3:27 PM ZYJGblpks808.7 cm (5' 8 )11/22/2022 3:27 PM EDTBody Mass Index27.371 3:27 PM EDT Plan of Treatment Health MaintenanceDue DateLast DoneCommentsCT Psuezemqiegq64/27/1977FIT-DNA 1975FIT1976FOBT1975 9281Jsffdursryjtj96/27/1977Pneumococcal Vaccine: Pediatrics (0 to 5 Years) and At-Risk Patients (6 to 64 Years) (1 of 2 - PCV)12/09/1995COVID-19 Vaccine (2024- season), 03/11/2020, 02/11/2020Influenza Vaccine (#1)/4Colonoscopy 311/07/2022, 12/18/2022, 3Colorectal Cancer Screening 12/18/2032 Insurance * Guarantor: Tara Simmons TypeRelation to PatientDate of BirthPhone Billing AddressPersonal/ZqsbhdKoic07/27/1976 [facility] [place] [address] Care Teams Team MemberRelationshipSpecialtyStart DateEnd Date Luther Nicolas DO PCP - Yyxetda67/10/23
--- OUTSIDE RECORDS SUMMARY | 2025-01-20 07:14 | XMS_ITS | Clinical Summary ---
Author Organization [facility] Address [address] [place], [place] [address] Care Team Providers Care Hospital Education Coordinator Name Role Phone Unavailable Primary Care Provider [...] RecordedNational Score (1-100), lower number is lower rewr957607/10/2023State Score (1-10), lower number is lower mmtg56107/10/2023 Data from: https://www.neighborhoodatlas.medicine.[facility].edu/. Last address used for lbncbpfgdu[address]07/10/2023Sex and Gender InformationValueDate RecordedSex Assigned at BirthNot on fileLegal PqgCjaz8705/11/2023 4:00 PM EDT Gender IdentityNot on fileSexual OrientationNot on file Last Filed Vital Signs Vital SignReadingTime TakenCommentsBlood Qrchpren947/8507 10:31 AM EDT Bhlpy8794 10:31 AM QRUFbhgyvyrvpn37.8 ??C (98.3 ??F)09/10/2023 10:31 AM EDTRespiratory Rate--Oxygen Saturation--Inhaled Oxygen Concentration--Nuonwc96.3 kg (188 lb)09/10/2023 10:31 AM QBDIpthsx967.7 cm (5' 8 )09/10/2023 10:31 AM EDT Body Mass Index28.59009/10/2023 10:31 AM EDT Plan of Treatment Health MaintenanceDue DateLast DoneCommentsAnxiety Sptoedmei82/27/1995Depression Fjymjrmta00/27/1995HIV Gqcycihvu07/27/1995Hepatitis C Bjdwuwqwy28/27/1995 DTaP,Tdap,Td Vaccine (1 - Tdap)12/09/1995Hepatitis B Vaccine (1 of 3 - 19+ 3- dose series)12/09/1995Lipid Ijskphtrx04/27/2012CT Xaeujaojjvko63/27/2022 Cologuard (FIT-DNA)7988Taznsqlujpq83/27/2022Colorectal Cancer Screening 2Diabetes Rmjzibbkf80/27/2022Fecal Occult Blood2021igmoidoscopy 2Covid-19 Vaccine ( season)510/, 03/11/2020, 02/11/2020Influenza Vaccine (#1)2024 Insurance * Guarantor: Henrik Simmons AAccount TypeRelation to PatientDate of BirthPhone Billing AddressPersonal/NemzvpIscs34/27/1976 [facility] [place] [address]
--- OUTSIDE RECORDS SUMMARY | 2025-01-20 07:14 | XMS_ITS | Clinical Summary ---
Author Organization [facility] tem Address [facility] [address] [place] [address] Care Team Providers Care Scooper Name Role Phone Luther Nicolas Primary Care Provider [phone] Allergies No known active allergies Medications MedicationSigDispense [...] of acetabular labrum of left hip03/26/2024Femoral acetabular lbmqyfxstfv68/05/2024 Family History Medical HistoryRelationNameCommentsProstate cancerFatherLouisAnesthesia problems Neg HxRelationNameStatusCommentsFatherLouis Social History Tobacco UseTypesPacks/DayYears UsedDateSmoking Tobacco: NeverPassive Smoke Exposure: NeverSmokeless Tobacco: Never Tobacco Cessation:Counseling Given: Not Answered Alcohol UseStandard Drinks/WeekCommentsYes1 (1 standard drink = 0.6 oz pure alcohol)ChildcareAnswerDate DlgrhlcdWlabiaxoiRcqddsj77/10/2019EmploymentAnswer Date ZaffwbqlCdkapnwoadZuubyvx09/10/2019Hunger ScreeningAnswerDate Recorded Within the past 12 months we worried whether our food would run out before we got money to buy more.Never True08/25/2024Within the past 12 months the food we bought just didn't last and we didn't have money to get more.Never True 08/25/2024Sex and Gender InformationValueDate RecordedSex Assigned at BirthNot on fileLegal QouCwrq5909/15/2014 3:03 PM EDTGender IdentityNot on fileSexual OrientationNot on file Last Filed Vital Signs Vital SignReadingTime TakenCommentsBlood Rgbutdlp664/8504 3:35 PM EDT Mjqpz6002 3:35 PM PVIIxifojbgnuw45.1 ??C (97 ??F)05/21/2024 1:50 PM EDT Respiratory Jdnh6518 3:35 PM EDTOxygen Jbtgfyupdo33%05/21/2024 3:35 PM EDTInhaled Oxygen Concentration--Hefbof31.1 kg (192 lb)08/25/2024 12:52 PM EDT Mqmfju712.7 cm (5' 8 )08/25/2024 12:52 PM EDTBody Mass Index29.19008/25/2024 12:52 PM EDT Plan of Treatment Health MaintenanceDue DateLast DoneCommentsDepression Cpigtucdj05/27/1989Adult BMI Follow Up Plan1994DTaP,Tdap and Td Vaccines (1 - Tdap)12/09/1995COVID- 19 Vaccine ( - season), 03/11/2020, 02/11/2020 Influenza Exrgkva19/Tobacco Bkudkuvww23/dult BMI Wrregprsz63 [employer] Not on file Insurance Care Teams Team MemberRelationshipSpecialtyStart DateEnd Date Luther Nicolas DO [address] [place] [address] PCP - GeneralInternal Medicine10/16/23
== END 2025-01-20 07:11 | disposition home or self-care (01) ==
LOC: US 07:11
PROVIDERS: PCP Internal Medicine; Visit Provider Internal Medicine
DX: R22.2 Localized swelling, mass and lump, trunk (principal)
CPT/HCPCS: 76536

== ENCOUNTER 2025-02-02 08:03 | Outpatient (OUT) | payer OTHER, SELFPAY ==
--- NOTE | 2025-02-02 07:45 | NM_ITS ---
Patient Name: SAMSON MENJIVAR MR#: [id number] : 1975 Exam Date: 02/02/2025 Ordering Doctor: DR MILANA MORRIS D.O. RADIOLOGY REPORT PROCEDURE: NM MEREDITH PERF SPECT REST STR COMPARISON: None. INDICATIONS: CHEST PAIN, DYSPNEA TECHNIQUE: Exam Description: Stress/Rest one day protocol gated SPECT Rest Imagin.6 mCi Tc-99m Cardiolite IV on 02/02/2025 Stress Imaging 30.0 mCi Tc-99m Cardiolite IV on 02/02/2025 Exercise Protocol: Alli Heart Rate (bpm): Rest: 80 Max: 166 PMHR: 96 Blood Pressure: Rest: 133/88 Max: 186/96 Exercise Time: Minutes: 8 Seconds: 59 Stage Reached: Stage: 3 Mets 10.1 Symptoms: Rest and peak stress ECG findings were pending and the exercise portion of the study was pending per attending physician [facility] . For more details please see separate cardiac stress test report. FINDINGS: QUALITY OF STUDY: Good PERFUSION DEFECT: LOCATION: Mid and basal inferior SIZE: Small SEVERITY: Mild TYPE: Reversible WALL MOTION: Normal LV SIZE: 68 mL. TID / TCD: 0.7 LVEF: Calculated EF 77%. SUMMARY: Abnormal myocardial perfusion imaging study CONCLUSION: Abnormal nuclear myocardial perfusion stress imaging test showing evidence of small area of mild ischemia at mid and basal inferior segments Normal left ventricular systolic function, EF 77% No transient ischemic dilatation, TID 0.7 EKG portion of stress test is reported separately Dictated by: Jesica Carlson MD on 02/02/2025 at 12:02 Approved by: Jesica Carlson MD on 02/02/2025 at 12:52
--- NOTE | 2025-02-02 08:03 | PCN_ITS ---
CARDIAC STRESS TEST ? Requesting Physician:? Dr. Nicolas Procedure Date:? 02/02/2025 ? EKG TREADMILL STRESS TEST Resting EKG showed normal sinus rhythm with early repolarization.? Heart rate 80 beats per minute, no T or ST changes seen.? Resting blood pressure 133/88 mm/Hg.? The patient was exercised according to standard Alli protocol and he was able to finish 8 minutes and 59 seconds, achieving peak heart rate of 166 beats per minute, which represents 96% of age predicted maximum heart rate, and peak blood pressure of 186/98 mm/Hg.? Exercise was terminated secondary to achievement of target heart rate.? The patient complained of chest tightness at 4 minutes and 20 seconds, rated 2/10, and at peak exercise the chest tightness was 4/10< > (Dictation cut off) ? EKG throughout the test did not show any significant T or ST changes or any arrhythmias.? ? CONCLUSION:? 1.? Maximum stress test achieving 96% of age predicted maximum heart rate. 2.? Good exercise tolerance. 3.? Appropriate heart rate and blood pressure response to exercise. 4.? This stress test is negative for exercise induced ischemic EKG changes or arrhythmias; however, the patient had chest pain with shortness of breath with radiation to the neck during and at peak exercise, resolved during recovery, he states.? 5.? The nuclear myocardial perfusion stress images result is reported separately. ? ? eJsica Carlson M.D.. [facility]/jack ZUNIGA
--- OUTSIDE RECORDS SUMMARY | 2025-02-02 08:06 | XMS_ITS | Clinical Summary ---
Author Organization [facility] Address [address] [place] [address] Care Team Providers Care Rough Rice Grader Name Role Phone Luther Nicolas DO Primary Care Provider [phone] Allergies No known active allergies Medications MedicationSigDispense QuantityRefillsLast FilledStart DateEnd DateStatus tamsulosin (Flomax) 0.4 MG 24 hr capsule Active Singulair 10 MG tablet Active cetirizine (ZyrTEC ALLERGY) 10 MG tablet Active Active Problems ProblemNoted DateDiagnosed DateArticular cartilage disorder of left hip 06/03/2024Left hip pain09/27/2023Femoral acetabular wzdhxylbvez43/15/2024 Encounter for screening for malignant neoplasm of colon11/22/2022 Immunizations ImmunizationAdministration DatesNext DueInfluenza, seasonal, injectable, preservative free12/12/2023 Family History Medical HistoryRelationNameCommentsProstate cancerFatherBreast cancerNeg HxColon cancerNeg HxOvarian cancerNeg HxRelationNameStatusCommentsFatherAliveMotherAlive Social History Tobacco UseTypesPacks/DayYears UsedDateSmoking Tobacco: NeverSmokeless Tobacco: NeverAlcohol UseStandard Drinks/WeekCommentsYes1 (1 standard drink = 0.6 oz pure alcohol)Sex and Gender InformationValueDate RecordedSex Assigned at BirthMale 11/21/2022 10:54 PM EDTLegal AnqXupt6809/27/2022 2:44 PM EDTGender IdentityMale 11/21/2022 10:54 PM EDTSexual YuykzeypytzKosjlsrq25/10/2023 10:54 PM EDT Last Filed Vital Signs Vital SignReadingTime TakenCommentsBlood Rfkrirvz350/8610 3:27 PM EDT Pulse--Temperature--Respiratory Rate--Oxygen Saturation--Inhaled Oxygen Concentration--Zwmkgu74.6 kg (180 lb)11/22/2022 3:27 PM HTTTilfdr228.7 cm (5' 8 )11/22/2022 3:27 PM EDTBody Mass Index27.371 3:27 PM EDT Plan of Treatment Health MaintenanceDue DateLast DoneCommentsCT Kpqqfynnbnts52/27/1977FIT-DNA 1976FIT1976FOBT1976 7870Qudlowrvbvqvo22/27/1977Pneumococcal Vaccine: Pediatrics (0 to 5 Years) and At-Risk Patients (6 to 64 Years) (1 of 2 - PCV)12/09/1995COVID-19 Vaccine (2024- season), 03/11/2020, 02/11/2020Influenza Vaccine (#1)/4Colonoscopy 311/07/2022, 12/18/2022, 3Colorectal Cancer Screening 12/18/2032 Insurance * Guarantor: Tara Simmons TypeRelation to PatientDate of BirthPhone Billing AddressPersonal/SokutxHeis00/27/1976 [facility] [place] [place] [address] Care Teams Team MemberRelationshipSpecialtyStart DateEnd Date Luther Nicolas DO PCP - Gaqguhe18/10/23
--- OUTSIDE RECORDS SUMMARY | 2025-02-02 08:06 | XMS_ITS | Clinical Summary ---
Author Organization [facility] Address [address] [place], [place] [address] Care Team Providers Care Cloth Hauler Name Role Phone Unavailable Primary Care Provider [...] RecordedNational Score (1-100), lower number is lower blez309907/10/2023State Score (1-10), lower number is lower dbtf36407/10/2023 Data from: https://www.neighborhoodatlas.medicine.[facility].edu/. Last address used for n[address]07/10/[address]23Sex and Gender InformationValueDate RecordedSex Assigned at BirthNot on fileLegal HqeTqhu8605/11/2023 4:00 PM EDT Gender IdentityNot on fileSexual OrientationNot on file Last Filed Vital Signs Vital SignReadingTime TakenCommentsBlood Vqpyjzbj125/8507 10:31 AM EDT Zkhdb2678 10:31 AM NGHIhbfwvovqgb37.8 ??C (98.3 ??F)09/10/2023 10:31 AM EDTRespiratory Rate--Oxygen Saturation--Inhaled Oxygen Concentration--Mombrs59.3 kg (188 lb)09/10/2023 10:31 AM MUDLqsiwh521.7 cm (5' 8 )09/10/2023 10:31 AM EDT Body Mass Index28.59009/10/2023 10:31 AM EDT Plan of Treatment Health MaintenanceDue DateLast DoneCommentsAnxiety Fobvqgktl99/27/1995Depression Nfovmprls47/27/1995HIV Rpikywoiq28/27/1995Hepatitis C Zlbpbajev97/27/1995 DTaP,Tdap,Td Vaccine (1 - Tdap)12/09/1995Hepatitis B Vaccine (1 of 3 - 19+ 3- dose series)12/09/1995Lipid Cpourukvb48/27/2012CT Tfalbnhqfnmg23/27/2022 Cologuard (FIT-DNA)0475Rtwbmolzbxh30/27/2022Colorectal Cancer Screening 2Diabetes Ihwsazkfh25/27/2022Fecal Occult Blood2021igmoidoscopy 2Covid-19 Vaccine ( season)510/, 03/11/2020, 02/11/2020Influenza Vaccine (#1)2024 Insurance * Guarantor: Henrik Simmons AAccount TypeRelation to PatientDate of BirthPhone Billing AddressPersonal/TdhxjtBhbl27/27/1976 [facility] [place] [address]
--- NOTE | 2025-02-02 10:27 | PC.NURSE ---
Patient was able to complete cardiolyte treadmill stress test. Patient developed chest tightness 2/10 around 4:20 minute lisbeth that worsened to 4/10 radiating to left neck around 7 minute lisbeth. Also experienced SOB. Chest pain continued during recovery process to left chest only 2/10 - unresolved. HR was still 115-120's at 12 minute recovery period that jumped to [address] Gracia and advised to go to ER. Patient initially declined ER. Spoke with Dr. Nicolas who ordered the test and he also advised patient to go to the ER, patient then agreed. Dr. Nicolas to provide [facility]iology referral. [facility] walked patient to ER with IV intact and patent.
== END 2025-02-02 08:04 | disposition home or self-care (01) ==
LOC: NM 08:04
PROVIDERS: PCP Internal Medicine; Visit Provider Internal Medicine
DX: R07.2 Precordial pain (principal); R06.09 Other forms of dyspnea; R94.39 Abnormal result of other cardiovascular function study
CPT/HCPCS: 78452; 93017; A9500

== ENCOUNTER 2025-02-02 10:42 | Emergency (ER) | payer OTHER, SELFPAY ==
[2025-02-02] VITALS (37 sets, daily range): BP systolic 100–154; BP diastolic 63–99; PULSE 79–107; TEMP 36.6; O2SAT 93–99; BMI 28.9
--- NOTE | 2025-02-02 11:03 | ECG_ITS ---
The [facility] Test Date: 2025-02-02 Pat Name: SAMSON MENJIVAR Department: Room: - Gender: Male Jacquard Loom Weaver: : 1975 Requested By: [id number] Order Number: [id number] Reading MD: ANJEL STOVALL M.D. Measurements Intervals [place] Rate: 92 P: 62 WV: 188 QRS: 69 QRSD: 72 T: 48 QT: 338 QTc: 387 Interpretive Statements 1100 Sinus rhythm [address] elevation 9130 borderline ECG Compared to ECG 08/15/2020 21:53:07 ST (T wave) deviation still present Electronically Signed On 02-02-2025 19:27:20 EST by ANJEL STOVALL M.D.
--- NOTE | 2025-02-02 11:03 | XR_ITS ---
The [address] [address] Patient Name: SAMSON MENJIVAR MRN: [id number] date: 1975 Sex: M Assigned Patient Location: ER Current Patient Location: ED.MAIN Accession/Order Number: [id number] Exam Date: 02/02/2025 11:10 Report Date: 02/02/2025 11:33 At the request of: ANGELES YORK MD Procedure: XR chest 1V PORTABLE AP ERECT CHEST 1053 hours CLINICAL HISTORY: Chest pain and pressure. Shortness of breath. COMPARISON: CT 01/07/2025 The heart is within normal limits. There is no vascular congestion. The lungs, as visualized, are clear. There is no effusion or pneumothorax. The osseous structures are intact. XR/XR chest 1V IMPRESSION: NO ACUTE FINDINGS Impression dictated by: Allegra Tapia M.D. 02/02/2025 11:33 AM Dictation Location: [place] [address] Electronically authenticated by: [id number] Y Date: 02/02/2025 11:33
--- NOTE | 2025-02-02 11:04 | ED.GENADUL1 ---
HPI HPI - General Adult General Chief complaint: Chest Pain Stated complaint: CHEST PAIN PRESSURE Time Seen by Provider: 02/02/25 10:57 Source: patient Mode of arrival: walk-in Limitations: no limitations History of Present Illness HPI narrative: 49-year-old male presents for chest pain. He has been having intermittent chest pain particular with exertion since . He had a stress test today and during the stress test he developed chest pain. He has not had a heart catheterization. He has hypertension and is on medication for it. He is a non-smoker and does not have diabetes. The pain has been substernal and just to the left of midline. No trauma or fever. When he gets the pain sometimes he gets short of breath but he is not short of breath at this moment. Related Data Home Medications ?Medication ?Instructions ?Recorded ?Confirmed esomeprazole magnesium 40 mg 40 mg PO DAILY 12/16/24 02/02/25 capsule,delayed release (Nexium) ferrous sulfate 325 mg (65 mg 325 mg PO DAILY 12/16/24 02/02/25 iron) tablet (FeroSul) montelukast 10 mg tablet 10 mg PO DAILY 12/16/24 02/02/25 (Singulair) tamsulosin 0.4 mg capsule 0.4 mg PO DAILY 12/16/24 02/02/25 telmisartan 20 mg tablet 20 mg PO DAILY 12/16/24 02/02/25 Allergies Allergy/AdvReac Type Severity Reaction Status Date / Time No Known Drug Allergies Allergy Verified 02/02/25 10:53 Opioid HPI Opioid Management Most Recent Opioid Data: Last Pain Scale 2 Today, 10:59 Last ED Pain Assessment Today, 10:59 Review of Systems ROS Narrative A ten point review of systems is negative except as noted above. 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 ?M24.152 - Other articular cartilage disorders, left hip (ICD-10) Iron deficiency ?E61.1 - Iron deficiency (ICD-10) Heart murmur ?R01.1 - Cardiac murmur, unspecified (ICD-10) Esophagitis ?K20.90 - Esophagitis, unspecified without bleeding (ICD-10) GERD (gastroesophageal reflux disease) ?K21.9 - Gastro-esophageal reflux disease without esophagitis (ICD-10) BPH (benign prostatic hyperplasia) ?N40.0 - Benign prostatic hyperplasia without lower urinary tract symptoms (ICD-10) Asthma ?J45.909 - Unspecified asthma, uncomplicated (ICD-10) Rhinitis ?J31.0 - Chronic rhinitis (ICD-10) Surgical History (Updated 12/24/24 @ 07:26 by Shelly Monson RN) History of hip surgery ?Z98.890 - Other specified postprocedural states (ICD-10) H/O colonoscopy ?Z98.890 - Other specified postprocedural states (ICD-10) Family History (Updated 12/16/24 @ 09:11 by Lucila Avila, HUNTER) Other Aneurysm Hypercholesteremia Hypertension Multiple sclerosis Prostate cancer Social History (Updated 12/16/24 @ 09:12 by Lucila Avila RN) Within the past year, how often did you have a drink containing alcohol: 2-4 times a month Within the past year, how often did you have six or more drinks on one occasion: never Smoking status: Never smoker Second hand tobacco smoke exposure: No Non-prescribed substance use: denies use 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 Skin:Warm, dry, no pallor noted.There is no rash noted. Head:Normocephalic, atraumatic Eye: Normal conjunctiva, no drainage Ears, Nose, Mouth, and Throat: oral mucosa is moist. Nares patent. Cardiovascular:Regular Rate and Rhythm Respiratory:Patient is in no distress, no accessory muscle use, lungs are clear to auscultation, no wheezing, rales or rhonchi Back:non-tender GI: Soft and nontender Musculoskeletal: The patient has no evidence of calf tenderness, no pitting edema, symmetrical pulses noted bilaterally Neurological:A&O, normal speech Psychiatric:Cooperative Constitutional Vital Signs, click to edit/add: Last Vital Signs Temp 97.9 F 02/02/25 10:48 Pulse 80 02/02/25 13:20 Resp 19 02/02/25 13:20 BP 115/84 02/02/25 13:20 Pulse Ox 95 02/02/25 13:20 O2 Del Method Room Air 02/02/25 10:48 Course Vital Signs Vital signs: Vital Signs Temperature 97.9 F 02/02/25 10:48 Pulse Rate 107 H 02/02/25 10:48 Respiratory Rate 14 02/02/25 10:48 Blood Pressure 139/89 02/02/25 10:48 Pulse Oximetry 99 02/02/25 10:48 Oxygen Delivery Method Room Air 02/02/25 10:48 Temperature 97.9 F 02/02/25 10:48 Pulse Rate 80 02/02/25 13:20 Respiratory Rate 19 02/02/25 13:20 Blood Pressure 115/84 02/02/25 13:20 Pulse Oximetry 95 02/02/25 13:20 Oxygen Delivery Method Room Air 02/02/25 10:48 Medical Decision Making MDM Narrative Medical decision making narrative: The patient presented with chest pain which was sustained during a stress test. 2 sets of troponin are negative and EKG shows no acute findings. His EKG was reviewed with audiovisual aids technician, Dr. Wagner. The patient stress test was read and shows a small area of ischemia. Case discussed with cardiology and the patient will be transferred to [facility] with the expectation of heart catheterization today. We discussed method of transfer and the patient and his are comfortable with her driving him there. He is agreeable and stable for transfer. Differential Diagnosis Differential Diagnosis: Pain, NSTEMI, STEMI, CAD Lab Data Lab results reviewed: Yes I reviewed the patient's lab results Labs: Lab Results 02/02/25 02/02/25 Range/Units 11:00 12:08 WBC 5.8 (4.0-11.0) 10^3/uL RBC 5.59 (4.70-6.10) 10^6/uL Hgb 15.8 (14.0-18.0) g/dL Hct 46.6 (42.0-54.0) % MCV 83.4 (80.0-94.0) fL MCH 28.3 (25.9-34.0) pg MCHC 33.9 (29.9-35.2) g/dL RDW 18.5 H (11.0-15.0) % Plt Count 215 (150-450) 10^3/uL MPV 11.2 (9.5-13.5) fL Neut % (Auto) 68.1 (43.0-75.0) % Lymph % (Auto) 22.6 (20.5-60.0) % [place] % (Auto) 7.8 (1.7-12.0) % Eos % (Auto) 0.9 (0.9-7.0) % Baso % (Auto) 0.3 (0.2-2.0) % Neut # (Auto) 4.0 (1.4-6.5) 10^3/uL Lymph # (Auto) 1.3 (1.2-3.8) 10^3/uL [place] # (Auto) 0.5 (0.3-0.8) 10^3/uL Eos # (Auto) 0.1 (0.0-0.7) 10^3/uL Baso # (Auto) 0.0 (0.0-0.1) 10^3/uL Abs Immat Gran (auto) 0.02 (0.00-0.03) 10^3/uL Imm/Tot Granulo (auto) 0.3 (0.0-0.5) % Sodium 140 (136-145) mmol/L Potassium 4.0 (3.5-5.1) mmol/L Chloride 107 (98-107) mmol/L Carbon Dioxide 27.4 (21.0-32.0) mmol/L Anion Gap 9.6 BUN 13.0 (7.0-18.0) mg/dL Creatinine 1.07 (0.70-1.30) mg/dL Est GFR ( Amer) >60 (>=60 mL/min/1.73m^2) Est GFR (Non-Af Amer) >60 (>=60 mL/min/1.73m^2) BUN/Creatinine Ratio 12.1 Glucose 113 H (74-106) mg/dL Calcium 9.0 (8.5-10.1) mg/dL Troponin I High Sens 4.9 4.2 (4.0-76.1) pg/mL Imaging Data Chest x-ray: Radiologist's impression: ITS Impressions Chest X-Ray 02/02/25 11:03 IMPRESSION: NO ACUTE FINDINGS Impression dictated by: Allegra Tapia M.D. 02/02/2025 11:33 AM Dictation Location: [facility] Electronically authenticated by: [id number] Y Date: 02/02/2025 11:33 ECG Data Attestation: I personally reviewed and interpreted this ECG as follows: (KG on my interpretation shows normal sinus rhythm without acute change and a rate of 92.) Discharge Plan Discharge Chief Complaint: Chest Pain Clinical Impression: Chest pain, Abnormal stress test Patient Disposition: [facility] Time of Disposition Decision: 13:24 Discharge Location: [facility] Condition: Fair Mode of Transportation: Private Vehicle
[2025-02-02] MEDS: ASPIRIN 81 MG TAB.CHEW 324 MG PO (11:11)
[2025-02-02] MEDS: NITROGLYCERIN 0.4 MG BOTTLE SL (11:13)
[2025-02-02 11:15] LABS: Hematocrit 46.6 % (42.0-54.0); Hemoglobin 15.8 g/dL (14.0-18.0); Immature Granulocytes Abs Auto 0.02 10^3/uL (0.00-0.03); Immature Granulocytes Pct Auto 0.3 % (0.0-0.5); Lymphocytes Absolute Auto 1.3 10^3/uL (1.2-3.8); Mean Corpuscular HGB Conc 33.9 g/dL (29.9-35.2); Mean Corpuscular Hemoglobin 28.3 pg (25.9-34.0); Mean Corpuscular Volume 83.4 fL (80.0-94.0); Platelet Count 215 10^3/uL (150-450); Red Blood Count 5.59 10^6/uL (4.70-6.10); White Blood Count 5.8 10^3/uL (4.0-11.0)
[2025-02-02 11:19] LABS: Anion Gap 9.6; Blood Urea Nitrogen 13.0 mg/dL (7.0-18.0); Calcium 9.0 mg/dL (8.5-10.1); Carbon Dioxide 27.4 mmol/L (21.0-32.0); Chloride 107 mmol/L (98-107); Estimated GFR (African America >60 (>=60 mL/min/1.73m^2); Estimated GFR (Non-African Ame >60 (>=60 mL/min/1.73m^2); Glucose 113 mg/dL (74-106); Potassium 4.0 mmol/L (3.5-5.1); Sodium 140 mmol/L (136-145)
--- OUTSIDE RECORDS SUMMARY | 2025-02-02 11:20 | XMS_ITS | Clinical Summary ---
Author Organization [facility] Address [address] [place], [place] [address] Care Team Providers Care Patent Examiner Name Role Phone Unavailable Primary Care Provider [...] RecordedNational Score (1-100), lower number is lower vsxn344207/10/2023State Score (1-10), lower number is lower nofb23407/10/2023 Data from: https://www.neighborhoodatlas.medicine.[facility].edu/. Last address used for [address]/10/2023Sex and Gender InformationValueDate RecordedSex Assigned at BirthNot on fileLegal ZecWhsb3605/11/2023 4:00 PM EDT Gender IdentityNot on fileSexual OrientationNot on file Last Filed Vital Signs Vital SignReadingTime TakenCommentsBlood Gbqnuvnc365/8507 10:31 AM EDT Hbjeo0171 10:31 AM BWSAmmihayqgdj66.8 ??C (98.3 ??F)09/10/2023 10:31 AM EDTRespiratory Rate--Oxygen Saturation--Inhaled Oxygen Concentration--Ohscgv55.3 kg (188 lb)09/10/2023 10:31 AM HXNSvdzsg651.7 cm (5' 8 )09/10/2023 10:31 AM EDT Body Mass Index28.59009/10/2023 10:31 AM EDT Plan of Treatment Health MaintenanceDue DateLast DoneCommentsAnxiety Wbrtjhxij79/27/1995Depression Okuvhwndq77/27/1995HIV Kqworbgqf64/27/1995Hepatitis C Eiirkzzda83/27/1995 DTaP,Tdap,Td Vaccine (1 - Tdap)12/09/1995Hepatitis B Vaccine (1 of 3 - 19+ 3- dose series)12/09/1995Lipid Nqntlwqee22/27/2012CT Vbrnhswveigp64/27/2022 Cologuard (FIT-DNA)8755Zcgdramwxtc37/27/2022Colorectal Cancer Screening 2Diabetes Kixtwzrsl18/27/2022Fecal Occult Blood2021igmoidoscopy 2Covid-19 Vaccine ( season)510/, 03/11/2020, 02/11/2020Influenza Vaccine (#1)2024 Insurance * Guarantor: Henrik Simmons AAccount TypeRelation to PatientDate of BirthPhone Billing AddressPersonal/XwhzarBdua71/27/1976 [facility] [place] [address]
--- OUTSIDE RECORDS SUMMARY | 2025-02-02 11:20 | XMS_ITS | Clinical Summary ---
Author Organization [facility] Address [address] [place] [address] Care Team Providers Care Glue Reel Operator Name Role Phone Luther Nicolas DO Primary Care Provider [phone] Allergies No known active allergies Medications MedicationSigDispense QuantityRefillsLast FilledStart DateEnd DateStatus tamsulosin (Flomax) 0.4 MG 24 hr capsule Active Singulair 10 MG tablet Active cetirizine (ZyrTEC ALLERGY) 10 MG tablet Active Active Problems ProblemNoted DateDiagnosed DateArticular cartilage disorder of left hip 06/03/2024Left hip pain09/27/2023Femoral acetabular xwqlvsvdeoq65/15/2024 Encounter for screening for malignant neoplasm of colon11/22/2022 Immunizations ImmunizationAdministration DatesNext DueInfluenza, seasonal, injectable, preservative free12/12/2023 Family History Medical HistoryRelationNameCommentsProstate cancerFatherBreast cancerNeg HxColon cancerNeg HxOvarian cancerNeg HxRelationNameStatusCommentsFatherAliveMotherAlive Social History Tobacco UseTypesPacks/DayYears UsedDateSmoking Tobacco: NeverSmokeless Tobacco: NeverAlcohol UseStandard Drinks/WeekCommentsYes1 (1 standard drink = 0.6 oz pure alcohol)Sex and Gender InformationValueDate RecordedSex Assigned at BirthMale 11/21/2022 10:54 PM EDTLegal YoqMxla6209/27/2022 2:44 PM EDTGender IdentityMale 11/21/2022 10:54 PM EDTSexual RkbenjmdervYymojgev29/10/2023 10:54 PM EDT Last Filed Vital Signs Vital SignReadingTime TakenCommentsBlood Nzhgwfnr427/8610 3:27 PM EDT Pulse--Temperature--Respiratory Rate--Oxygen Saturation--Inhaled Oxygen Concentration--Ooihei34.6 kg (180 lb)11/22/2022 3:27 PM XYPSanubi321.7 cm (5' 8 )11/22/2022 3:27 PM EDTBody Mass Index27.371 3:27 PM EDT Plan of Treatment Health MaintenanceDue DateLast DoneCommentsCT Hgkaqcnyhobr20/27/1977FIT-DNA 1976FIT1976FOBT1976 0750Sbsaqyjxesjdl38/27/1977Pneumococcal Vaccine: Pediatrics (0 to 5 Years) and At-Risk Patients (6 to 64 Years) (1 of 2 - PCV)12/09/1995COVID-19 Vaccine (2024- season), 03/11/2020, 02/11/2020Influenza Vaccine (#1)/4Colonoscopy 311/07/2022, 12/18/2022, 3Colorectal Cancer Screening 12/18/2032 Insurance * Guarantor: Tara Simmons TypeRelation to PatientDate of BirthPhone Billing AddressPersonal/UwczfqFjnr35/27/1976 [facility] [place] [address] Care Teams Team MemberRelationshipSpecialtyStart DateEnd Date Luther Nicolas DO PCP - Cjbzxnn00/10/23
== END 2025-02-02 14:19 | disposition short-term general hospital (02) ==
PROVIDERS: Emergency Provider Emergency Medicine; PCP Internal Medicine
DX: R07.9 Chest pain, unspecified (principal); R94.39 Abnormal result of other cardiovascular function study; I10 Essential (primary) hypertension; Z79.899 Other long term (current) drug therapy; R07.2 Precordial pain; R06.09 Other forms of dyspnea
CPT/HCPCS: 36415; 71045; 78452; 80048; 84484; 85025; 93005; 93017; 99285; A9500